=== PATIENT | male | born 1975 | race Caucasian/White ===

== ENCOUNTER 2024-11-09 16:55 | Inpatient (IN) | payer MEDICARE, MEDICAID ==
[~2024-11-09] VITALS: Ht 177.8 cm; Wt 89.5 kg
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
[2024-11-09] MEDS: methylPREDNISolone SOD SUCC 125 MG/2 ML VL IV ONE (17:33)
[2024-11-09 17:45] LABS: Nucleated Red Blood Cells % 0.1 %
[2024-11-09 17:46] LABS: Hematocrit 52.2 % (41.0-53.0); Hemoglobin 17.8 g/dL (13.5-17.5); Mean Corpuscular Hemoglobin 29.7 pg (28.0-32.0); Mean Corpuscular Volume 87.2 fL (80.0-100.0)
[2024-11-09 17:50] LABS: Potassium 4.3 mmol/L (3.5-5.1); Sodium 140 mmol/L (136-145)
[2024-11-09 17:51] LABS: Anion Gap 10 (5-15); Carbon Dioxide 22 mmol/L (20-31)
[2024-11-09 17:52] LABS: Calcium 9.7 mg/dL (8.7-10.4); Chloride 108 mmol/L (98-107)
[2024-11-09 17:56] LABS: BUN/Creatinine Ratio 16.4 (10.0-20.0); Blood Urea Nitrogen 12 mg/dL (9-23); Glucose 98 mg/dL (74-106)
--- NOTE | 2024-11-09 18:05 | DVH ---
CHEST RADIOGRAPH Indication: SOB Technique: Single frontal view of the chest was obtained Comparison: None FINDINGS: Lines and Tubes: None. Tubular structure noted extending from the right lower neck through the right hemiabdomen which may represent a ventriculoperitoneal shunt catheter. Lungs: No focal consolidation. Bronchovascular crowding due to low lung volumes with bibasilar linear densities. Pleura: No effusion. No pneumothorax. Cardiomediastinal contours: Unremarkable Bones: No acute osseous abnormality. IMPRESSION: Bronchovascular crowding due to low lung volumes with bibasilar atelectasis.
[2024-11-09] MEDS ORDERED: VANCOMYCIN PER PHARMACY 0 MG IV SCH (21:30)
[2024-11-09] MEDS ORDERED: NITROGLYCERIN 0.4 MG SL TAB SL PRN (21:30)
[2024-11-09] MEDS ORDERED: MORPHINE SULFATE INJ 2 MG/ml SYRG IV PRN (21:30)
[2024-11-09] MEDS ORDERED: ONDANSETRON HCL 4 MG/2 ML VIAL IV PRN (21:30)
[2024-11-09] MEDS ORDERED: VANCOMYCIN 1GM/200ML PM 200 ML IV ONE ×2 (21:45→23:30)
[2024-11-09] MEDS: PANTOPRAZOLE 40 MG/10 ML VIAL INJ IV ONE (22:19)
[2024-11-09] MEDS: VANCOMYCIN 1GM/200ML PM 200 ML IV ONE (22:20)
[2024-11-09] MEDS: ACETYLCYSTEINE 20%(200MG/ML) SOL 4ML NEB ONE (22:30)
[2024-11-09] MEDS: IPRATROPIUM BROM 0.5 MG/2.5ML INH SOL NEB ONE (22:30)
[2024-11-09 22:36] VITALS: BP 156/70; PULSE 109; RESP 24; O2SAT 99
[2024-11-10] VITALS (11 sets, daily range): PULSE 103–128; RESP 16–32; O2SAT 93–100
[2024-11-10] MEDS: PIPERACILLIN-TAZOB 3.375GM 100 ML IV SCH (00:08)
[2024-11-10] MEDS: LEVALBUTEROL HCL 1.25 MG/3 ML NEB NEB SCH (00:20)
[2024-11-10] MEDS: IPRATROPIUM BROM 0.5 MG/2.5ML INH SOL NEB SCH (00:20)
[2024-11-10] MEDS: ACETYLCYSTEINE 20%(200MG/ML) SOL 4ML NEB SCH (00:20)
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
[2024-11-10] MEDS: SODIUM CHLORIDE 0.9% 1,000 ML IV ONE ×4 (03:30→15:46)
[2024-11-10 05:27] LABS: COVID19 ANTIGEN SOFIA FIA NEGATIVE (NEGATIVE)
--- NOTE | 2024-11-10 05:32 | ECG ---
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
[2024-11-10 06:09] LABS: Hematocrit 50.5 % (41.0-53.0); Hemoglobin 17.1 g/dL (13.5-17.5); Mean Corpuscular Hemoglobin 29.9 pg (28.0-32.0); Mean Corpuscular Volume 88.1 fL (80.0-100.0); Nucleated Red Blood Cells % 0.1 %
[2024-11-10 06:22] LABS: Albumin 4.2 g/dL (3.2-4.8); Alkaline Phosphatase 74 U/L (46-116); Anion Gap 11 (5-15); BUN/Creatinine Ratio 20.3 (10.0-20.0); Blood Urea Nitrogen 16 mg/dL (9-23); Calcium 9.5 mg/dL (8.7-10.4); Carbon Dioxide 23 mmol/L (20-31); Glucose 87 mg/dL (74-106); Potassium 4.0 mmol/L (3.5-5.1); Sodium 143 mmol/L (136-145); Total Protein 7.3 g/dL (5.7-8.2)
[2024-11-10 06:23] LABS: Bilirubin, Total 1.1 mg/dL (0.2-1.0)
[2024-11-10 06:31] LABS: Alanine Aminotransferase 59 U/L (7-40); Chloride 109 mmol/L (98-107)
[2024-11-10] MEDS: LACOSAMIDE 50 MG TAB GT SCH (10:00)
[2024-11-10] MEDS: PANTOPRAZOLE 40 MG/10 ML VIAL INJ IV SCH (10:36)
[2024-11-10] MEDS: MEROPENEM 1GM IVPB 50 ML IV ONE (11:35)
[2024-11-10 12:37] LABS: INR 1.09 (0.9-1.15); Partial Thromboplastin Time 31.6 SEC (24.5-34.5); Prothrombin Time 11.5 sec (9.3-11.8)
[2024-11-10 12:52] LABS: Urine Protein, UAD Negative (Negative)
[2024-11-10] MEDS: VANCOMYCIN 750mg/150ml 150 ML IV SCH (13:36)
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
[2024-11-10] MEDS: LORazepam 2MG/ML-1ML VIAL IV PRN (15:22)
[2024-11-10] MEDS ORDERED: ACYCLOVIR 10MG/KG Q8HR PER RX 0 ML IV SCH (15:30)
[2024-11-10] MEDS: LORazepam 2MG/ML-1ML VIAL ONE (15:51)
[2024-11-10] MEDS: ACETAMINOPHEN 650 mg PER 20.3 mL UD GT PRN (16:00)
--- NOTE | 2024-11-10 17:27 | DVH ---
CT HEAD WITHOUT CONTRAST Indication: sp ventricular shunt EXAM DATE: 11/10/2024 04:43 PM COMPARISON: None TECHNIQUE: CT of the head without intravenous contrast. RADIATION DOSE: CTDIvol: 54 mGy, DLP: 1185 mGy*cm FINDINGS: Right frontal approach ventriculostomy catheter terminating near the left frontal horn late ral ventricle. Ventricles are significantly decompressed. There is no intracranial hemorrhage. There is no extra-axial fluid, mass, mass effect or midline shif t. Cisterns are patent. Left frontoparietal encephalomalacia. Left frontotemporal craniotomy. Anterio r/ inferior left frontal encephalomalacia. Mastoids well pneumatized. Left maxillary sinus disease.. Imaged portion of the orbits are unremarkab le. IMPRESSION: No intracranial hemorrhage .Right Frontal approach ventriculostomy catheter with the ventricles being significantly decompressed. Left frontoparietal encephalomalacia.
[2024-11-10] MEDS: AMPICILLIN SOD 2GM INJ 2 GM in SODIUM CHL 0.9% 100 ML IV ONE (17:41)
[2024-11-10] MEDS: ACYCLOVIR SOD 50MG/ML 800 MG in SODIUM CHL 0.9% 250 ML IV SCH (20:06)
[2024-11-10] MEDS: MEROPENEM 2GM/ 250ML 250 ML IV SCH (20:58)
[2024-11-10] MEDS ORDERED: MEROPENEM 1GM IVPB 50 ML IV SCH (22:00)
[2024-11-10] MEDS: AMPICILLIN SOD 2GM INJ 2 GM in SODIUM CHL 0.9% 100 ML IV SCH (23:31)
[2024-11-11] VITALS (29 sets, daily range): BP systolic 111–146; BP diastolic 52–77; PULSE 107–134; RESP 22–44; TEMP 98.6–100.3; O2SAT 93–100
[2024-11-11] MEDS: LACTATED RINGER'S 1,000 ML IV SCH (02:11)
[2024-11-11 03:11] LABS: Base Excess -3.8 mmol/L (-2.0-3.0)
--- NOTE | 2024-11-11 05:20 | DVH ---
EXAM: XR Chest, 1 View CLINICAL INDICATION: Pain TECHNIQUE: Frontal view of the chest. COMPARISON: XR Chest dated 11/09/2024 FINDINGS: LUNGS AND PLEURAL SPACES: Unremarkable. No consolidation. No pneumothorax. HEART: Cardiomegaly without overt failure. MEDIASTINUM: Unremarkable. Normal mediastinal contour. BONES/JOINTS: Unremarkable. No acute fracture. TUBES, LINES AND DEVICES: Tracheostomy tube in satisfactory position. IMPRESSION: Cardiomegaly without overt failure.
[2024-11-11 05:43] LABS: Hematocrit 49.9 % (41.0-53.0); Hemoglobin 16.5 g/dL (13.5-17.5); Mean Corpuscular Hemoglobin 29.8 pg (28.0-32.0); Mean Corpuscular Volume 90.1 fL (80.0-100.0); Nucleated Red Blood Cells % 0.0 %
[2024-11-11 06:00] LABS: Potassium 3.9 mmol/L (3.5-5.1); Sodium 142 mmol/L (136-145)
[2024-11-11 06:01] LABS: Anion Gap 12 (5-15)
[2024-11-11 06:04] LABS: Calcium 8.7 mg/dL (8.7-10.4); Carbon Dioxide 18 mmol/L (20-31); Chloride 112 mmol/L (98-107)
[2024-11-11 06:06] LABS: BUN/Creatinine Ratio 21.3 (10.0-20.0); Blood Urea Nitrogen 13 mg/dL (9-23); Glucose 93 mg/dL (74-106)
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
[2024-11-11] MEDS: clonazePAM 0.5 MG TAB GT SCH (12:15)
--- NOTE | 2024-11-11 12:21 | DVHSR ---
APPROVED REPORT EXAM: LIMITED Two-dimensional and M-mode echocardiogram with Doppler and color Doppler. Blood Pressure: 125/64 mmHg INDICATION H/O endocarditits RISK FACTORS Height: 5'10", Weight: 176 DIMENSIONS LVDd5.2 (3.8-5.7cm)LA (2D) (1.9-4.0cm)Aortic Root4.1 (2.0-3.7cm) LVDs3.8 (2.5-4.0cm)LA (MM) (1.9-4.0cm)Aortic Cusp Exc (1.5-2.0cm) EF (%) 52.0 (55-70%)Rt. Atrium (1.9-4.0cm)Asc. Aorta cm IVSd1.5 (0.7-1.1cm)RV (D) (1.8-2.4cm) PWd1.5 (0.7-1.1cm) Mitral Valve MitralMitral Stenosis E/A ratio0.02D MVAcm2 Aortic Valve Aortic ValveAortic Stenosis LVOT Diameter2.8 (1.8-2.4cm)Doppler AVAcm2 Other Information Quality : Technically LimitedRhythm : Technically limited study due to body habitus, patient curled up laying on right side. Conclusion lvef 65% mild to modeate LVH tachycardia during study normal RV function no severe valve abnormalities noted very llimited study
[2024-11-11] MEDS ORDERED: VANCOMYCIN 1GM/200ML PM 200 ML IV SCH ×2 (14:30→15:00)
[2024-11-11] MEDS: VANCOMYCIN 1GM/200ML PM 200 ML IV SCH (17:30)
[2024-11-11 19:37] LABS: Base Excess -3.8 mmol/L (-2.0-3.0)
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
[2024-11-12] VITALS (26 sets, daily range): BP systolic 105–137; BP diastolic 49–93; PULSE 98–122; RESP 20–42; TEMP 98.2–99.7; O2SAT 94–100
[2024-11-12 04:40] LABS: Sodium 145 mmol/L (136-145)
[2024-11-12 04:41] LABS: Anion Gap 12 (5-15); Carbon Dioxide 21 mmol/L (20-31)
[2024-11-12 04:44] LABS: Hematocrit 44.2 % (41.0-53.0); Hemoglobin 14.6 g/dL (13.5-17.5); Mean Corpuscular Hemoglobin 29.2 pg (28.0-32.0); Mean Corpuscular Volume 88.4 fL (80.0-100.0); Nucleated Red Blood Cells % 0.1 %
[2024-11-12 04:46] LABS: Glucose 94 mg/dL (74-106)
[2024-11-12 04:47] LABS: BUN/Creatinine Ratio 17.5 (10.0-20.0); Blood Urea Nitrogen 11 mg/dL (9-23)
[2024-11-12 04:48] LABS: Calcium 8.3 mg/dL (8.7-10.4); Chloride 112 mmol/L (98-107); Potassium 3.4 mmol/L (3.5-5.1)
[2024-11-12] MEDS: diphenhdrAMINE HCL 50 MG/1 ML VL IV ONE (05:17)
[2024-11-12] MEDS: POTASSIUM EFFERVESENT TAB 25 MEQ GT ONE (05:17)
--- NOTE | 2024-11-12 06:04 | DVH ---
EXAM: XR Chest, 1 View CLINICAL INDICATION: Pain TECHNIQUE: Frontal view of the chest. COMPARISON: No relevant prior studies available. FINDINGS: LUNGS AND PLEURAL SPACES: See below. HEART: Cardiomegaly with pulmonary congestion and edema. Superimposed pneumonia cannot be excluded. MEDIASTINUM: Unremarkable. Normal mediastinal contour. BONES/JOINTS: Unremarkable. No acute fracture. IMPRESSION: Cardiomegaly with pulmonary congestion and edema. Superimposed pneumonia cannot be excluded.
--- NOTE | 2024-11-12 09:13 | DVHPN2 ---
Progress Note - Dictate Date Seen: Nov 12, 2024 Has the PT tested + for MRSA If YES, has PT been informed?: No Medical Necessity Reason Pt with a Central, PICC or Fol: No Subjective Mr. Molina is a 49 years old gentleman with a history of traumatic brain injury, craniotomy, seizure disorder, he was brought to the [facility] on 11/09/2024 with a chief company of fever, tachycardia, desaturation. I have seen and examined the patient, I have discussed with his nurse and mother, he is awake, he tracks, he has social smiles to me, but she does not not follow my verbal commands or move the extremities Mother relates the patient was mentally fine at home, she also showed me a lot of pictures of the patient T-max: 100.7 He has Tachycardia Urinalysis, 11/10/2024: WBC: 2, urine leukocyte esterase: Negative CBC, 11/11/2024: Respiratory alkalosis WBC/HB/PLT/MCV, 11/11/2024: 19.4/16.5/139/90.1 TBI/AST/ALT/AP, 11/10/2024: 1.1/35/59/74 Chest x-ray, 11/11/2024: Cardiomegaly without overt failure Chest x-ray, 11/12/2024: Cardiomegaly with pulmonary congestion and edema. Superimposed pneumonia cannot be excluded CT head, 11/10/2024: No intracranial hemorrhage .Right frontal approach ventriculostomy catheter with the ventricles being significantly decompressed. Left frontoparietal encephalomalacia. vital signs Vital Sign Date Time Temp Pulse Resp B/P (MAP) Pulse Ox O2 Delivery O2 Flow Rate FiO2 11/12/24 06:50 103 28 100 11/12/24 06:40 T-piece 10 35 Cool Aerosol 35 11/12/24 06:00 111/62 (78) 11/12/24 05:00 98.6 98.6 Total Intake and Output 11/11/24 11/11/24 11/12/24 15:00 23:00 07:00 Intake Total 1166 ml 1778.0 ml 1759.3 ml Output Total 600 ml 550 ml Balance 1166 ml 1178.0 ml 1209.3 ml medications Current Medications Medications Dose Ordered Sig/Ata Route Start Time Stop Time Status Last Admin Dose Admin Levetiracetam 1,000 mg BID GT 11/09/24 22:00 11/11/24 21:44 1,000 MG Pantoprazole Sodium 40 mg DAILY IV 11/10/24 10:00 11/11/24 10:46 40 MG Acetaminophen 650 mg Q6HP PRN GT 11/09/24 21:30 11/12/24 03:32 650 MG Vancomycin HCl 0 ml @ 0 mls/hr UD IV 11/09/24 21:30 Levalbuterol HCl 0.625 mg Q6HR NEB 11/10/24 00:00 11/12/24 06:57 0.625 MG Ipratropium [place] 0.5 mg Q6HR NEB 11/10/24 00:00 11/12/24 06:57 0.5 MG Acetylcysteine 200 mg Q6HR NEB 11/10/24 00:00 11/12/24 06:57 200 MG Lacosamide 150 mg BID GT 11/10/24 10:00 11/11/24 21:48 150 MG Enteral Nutritional Formula 1,000 ml 30ML/HR GT 11/10/24 09:30 Lorazepam 1 mg Q5MINP PRN IV 11/10/24 15:30 11/11/24 13:53 1 MG Acyclovir Sodium 0 ml @ 0 mls/hr PER PHARMACY IV 11/10/24 15:30 Acyclovir Sodium 800 mg/Sodium Chloride 266 ml @ 266 mls/hr Q8H IV 11/10/24 18:00 11/12/24 02:23 266 MLS/HR Ampicillin Sodium 2 gm/Sodium Chloride 100 ml @ 100 mls/hr Q4H IV 11/10/24 22:00 11/12/24 07:01 100 MLS/HR Meropenem 250 ml @ 83.3 mls/hr Q8H IV 11/10/24 20:00 11/12/24 04:43 83.3 MLS/HR Lactated Ringer's 1,000 ml @ 100 mls/hr Q10H IV 11/11/24 02:00 11/11/24 21:45 100 MLS/HR Clonazepam 1 mg Q8HP GT 11/11/24 12:15 Hold Vancomycin HCl 200 ml @ 200 mls/hr Q8H IV 11/11/24 17:00 11/12/24 00:58 200 MLS/HR objective General: the patient is well developed and nourished. No acute distress. MENTAL STATUS: Subjective SPEECH, LANGUAGE, HIGHER CORTICAL FUNCTION: He does not vocalize/status post tracheostomy CRANIAL NERVES: Pupils are equal, round and reactive. EOMs full and conjugate. Facial sensation intact in all three divisions bilaterally. Mandibular strength intact. Facial muscles symmetrical and strength intact. SENSATION: Responsive to touch stimuli MOTOR: Increased tone in the upper and lower extremity. Diffuse muscle atrophy. No fasciculations. No abnormal movements or posturing. No spontaneous movement in the extremities REFLEXES: Deep tendon reflexes are diffusely increased, with clonus in the upper extremities, bilateral ankles. Upgoing toes in both feet CEREBELLAR/COORDINATION: Deferred GAIT/STATION: deferred. 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 Keppra 1000 mg b.i.d. Ativan for seizure breakthrough DVT prophylaxis GI prophylaxis More recommendation per clinical course I have discussed about the patient's care, and mother was quite Taylor is a she is able to take of him at home, she was related the patient pressor wound is healing under her care This medical document was created using an electronic medical record system with [employer] dictation system. Although this document has been carefully reviewed, there may still be some phonetic and typographical errors. These areas are purely typographical due to imperfections of the software programs, and do not reflect any compromise in the patient's medical care. Prognosis poor Dietary Evaluation Review Comments: Nutrition recommendation 1) TF Jevity 1.2Cal @ 60ml/hr. Start @ 20ml/hr, increase 10ml/hr Q4H until goal is reached. TF @ goal volume provides 1728 kcal (100% energy needs), 80gm protein (100% protein needs), 1162ml free water. 2) Water flush 100ml Q4H 3) Monitor NPO status, TF tolerance, lab values, wt trend, I/O Expected Outcomes/Goals: To meet >75% estimated needs Fu 2-3 days Plan discussed with: Other Total Time (mins): 40 AGNIESZKA ESPINOZA MD Nov 12, 2024 09:13
--- NOTE | 2024-11-12 13:45 | DVH ---
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 IMPRESSION: Image-guided lumbar puncture with 12 cc clear CSF. Opening pressure 9 cm H2O Plan: Specimen(s) sent for evaluation. PROCEDURE SUMMARY: - Percutaneous fluoro-guided lumbar puncture - Additional procedure(s): None PROCEDURE DETAILS: Pre-procedure Reference imaging for target: None Consent: Informed consent for the procedure including risks, benefits and alternatives was obtained a nd time-out was performed prior to the procedure. Preparation: The site was prepared and draped using maximal sterile barrier technique including cutan eous antisepsis. Anesthesia/sedation Level of anesthesia/sedation: No sedation Anesthesia/sedation administered by: Not applicable Total intra-service sedation time (minutes): 0 Imaging prior to lumbar puncture The patient was positioned left lateral decubitus. Initial imaging was performed. Target level: L2/3 interlaminar space Other findings: None Biopsy Local anesthesia was administered. Under imaging guidance as stated in the procedure summary, the ne edle was advanced to the thecal sac with positive return of CSF. Coaxial needle: None Needle size: 20 gauge Opening pressure: 9 cm H2O Aspirate volume: 12 cc clear CSF Needle removal The biopsy needle was removed and a sterile dressing was applied. Tract embolization: None Imaging following biopsy None Contrast Contrast agent: None Contrast volume (mL): 0 Radiation Dose Fluoroscopy time (minutes): 0.5 Reference air kerma (mGy): 15 Kerma area product (Not provided by imaging equipment) Not Used Additional Details Additional description of procedure: None Registry event: V/3/g Device used: None Equipment details: None Unique Device Identifiers: Not available Specimens removed: CSF as detailed above Estimated blood loss (mL): Less than 10 Standardized report: [email or web address] Attestation Signer name: Axel Quintero I attest that I was present for the entire procedure. I reviewed the stored images and agree with the report as written.
[2024-11-12 14:15] LABS: Protein, CSF 57.8 mg/dL (15-45)
[2024-11-12 15:00] LABS: Description,CSF CLEAR
--- NOTE | 2024-11-12 15:41 | DVHPNRES ---
Progress Note Date Seen: Nov 12, 2024 Resident Creating Document: ROSIBEL GREEN RESIDENT Has the PT tested + for MRSA If YES, has PT been informed?: No Medical Necessity Reason Pt with a Central, PICC or Fol: No Subjective Review of Systems Patient is a 49-year-old male, bed-bound with a past medical history of traumatic brain injury, endocarditis, seizure disorder, tracheostomy was brought to the hospital via EMS after he started having labored breathing and had fever. Patient's mother at bedside reports that she brought him home from a detention in [facility] about a week ago where he was staying since 2013 after traumatic brain injury following which he became bed-bound with quadriplegia, nonverbal. She reports that patient had some secretions yesterday and noticed to have labored breathing following which breathing treatments were given and he was suctioned via the tracheostomy. Today she noticed the patient having fever up to 101 degree F associated with labored breathing following which she called the EMS and brought the patient to the hospital for further evaluation. At detention and at home patient is on room air. Past medical history: Patient after the accident in 2013 was placed ventriculoperitoneal shunt, has a tracheostomy since then, bed-bound quadriplegic, endocarditis in 2013 was treated with antibiotics for 6 weeks and developed a seizure disorder. Surgical history: Cranial surgery, ventriculoperitoneal shunt, tracheostomy, G- tube Social history: Patient currently resides with the mother and is paraplegic Home medications: Keppra 1000 mg b.i.d., lacosamide 150 mg b.i.d., potassium 20 mEq daily, baclofen 20 mg q.i.d. 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 Left frontoparietal encephalomalacia. 11/12/2024: LP done, CSF fluid: wbc 9 rbc 84 protein 57 glucose 52, pending gram, culture and hsv pcr, HR is 110 lpm, T 99.6, acinobacter baumani is growing in the sputum, ID consulted, Chest CT ordered, patient is still having generalized rash, dexamethasone started Objective vital signs Vital Sign Date Time Temp Pulse Resp B/P (MAP) Pulse Ox O2 Delivery O2 Flow Rate FiO2 11/12/24 14:00 31 97 T-piece 10 35 35 11/12/24 10:00 110 126/66 (86) 11/12/24 08:00 98.4 98.4 Total Intake and Output 11/11/24 11/11/24 11/12/24 15:00 23:00 07:00 Intake Total 1166 ml 1778.0 ml 1759.3 ml Output Total 600 ml 550 ml Balance 1166 ml 1178.0 ml 1209.3 ml medications Current Medications Medications Dose Ordered Sig/Ata Route Start Time Stop Time Status Last Admin Dose Admin Levetiracetam 1,000 mg BID GT 11/09/24 22:00 11/12/24 09:48 1,000 MG Pantoprazole Sodium 40 mg DAILY IV 11/10/24 10:00 11/12/24 09:49 40 MG Acetaminophen 650 mg Q6HP PRN GT 11/09/24 21:30 11/12/24 03:32 650 MG Vancomycin HCl 0 ml @ 0 mls/hr UD IV 11/09/24 21:30 Levalbuterol HCl 0.625 mg Q6HR NEB 11/10/24 00:00 11/12/24 06:57 0.625 MG Ipratropium [place] 0.5 mg Q6HR NEB 11/10/24 00:00 11/12/24 06:57 0.5 MG Acetylcysteine 200 mg Q6HR NEB 11/10/24 00:00 11/12/24 06:57 200 MG Lacosamide 150 mg BID GT 11/10/24 10:00 11/12/24 13:00 150 MG Enteral Nutritional Formula 1,000 ml 30ML/HR GT 11/10/24 09:30 Lorazepam 1 mg Q5MINP PRN IV 11/10/24 15:30 11/11/24 13:53 1 MG Acyclovir Sodium 0 ml @ 0 mls/hr PER PHARMACY IV 11/10/24 15:30 Acyclovir Sodium 800 mg/Sodium Chloride 266 ml @ 266 mls/hr Q8H IV 11/10/24 18:00 11/12/24 02:23 266 MLS/HR Ampicillin Sodium 2 gm/Sodium Chloride 100 ml @ 100 mls/hr Q4H IV 11/10/24 22:00 11/12/24 13:35 100 MLS/HR Meropenem 250 ml @ 83.3 mls/hr Q8H IV 11/10/24 20:00 11/12/24 13:56 83.3 MLS/HR Clonazepam 1 mg Q8HP GT 11/11/24 12:15 Hold Vancomycin HCl 200 ml @ 200 mls/hr Q8H IV 11/11/24 17:00 11/12/24 09:46 200 MLS/HR Dexamethasone Sodium Phosphate 10 mg Q6HR IV 11/12/24 12:00 11/12/24 13:56 10 MG Examination Gen - no pallor, no icterus, no cyanosis, no clubbing, no LAD, Skin - Patients skin is warm and dry. generalized rash HEENT - status post cranial surgery with a left hemicranium, moist mucous membranes. Neck - no LAD, no JVD Pulmonary - B/L course rales heard, no wheezing, no stridor. cardiovascular - regular S1,S2 heard, left lower sternal border systolic murmur heard. peripheral pulses normal radial 2+, pedal 2+. capillary refill normal <2 secs. GI - soft abdomen. no hepatospleenomegaly. Bowel sounds normoactive Neurological - patient is nonverbal, quadriplegic, spontaneous eye opening, responds to mother on verbal command, clonus upper extremities edema laboratory and microbiology Laboratory Tests 11/12/24 04:18 Test 11/12/24 04:18 Range/Units Serum Glucose 94 74-106 mg/dL Microbiology Date/Time Source Procedure Growth Status 11/12/24 12:55 Cerebral Spinal Fluid Gram Stain - Final Resulted 11/12/24 12:55 Cerebral Spinal Fluid CSF Culture & Gram Stain (Tube 2) M Pending Resulted 11/11/24 08:08 Nose MRSA Screen - Final Complete 11/10/24 12:10 Voided Urine Urine Culture - Final Complete 11/09/24 22:14 Blood Blood Culture - Preliminary NO GROWTH AFTER 48 HOURS OF INCUBATION. Resulted Problem List/Assessment/Plan Problem List/Assessment/Plan Sepsis due to possible neuroinfection Seizure disorder S/p traumatic brain injury S/p ventriculoperitoneal shunt Quadriplegic IV fluids - Lorazepam PRN - on Keppra 1000 mg b.i.d. - lacosamide 150 mg b.i.d. 11/11/2024: LP will be done tomorrow, patient is having clonus and possible partial seizures, neurologist was consulted, wbc is trending high, sputum culture is showing gram negative rods, blood cultures prelim negative, patient will be continued in meropenem, vancomycin, ampicilin and acyclovir, head ct scan showed: Frontal approach ventriculostomy catheter with the ventricles being significantly decompressed. Left frontoparietal encephalomalacia. 11/12/2024: LP done, CSF fluid: wbc 9 rbc 84 protein 57 glucose 52, pending gram, culture and hsv pcr, HR is 110 lpm, T 99.6, dexamethasone started Acute on chronic hypoxic respiratory failure Probable aspiration pneumonia due to gram +/- bacteria Sepsis likely due to pneumonia s/p tracheostomy - chest x-ray shows right lower lobe opacity, bibasilar atelectasis - duo nebs q.6 hours - acetylcysteine - acinobacter baumani is growing in the sputum, ID consulted, Chest CT ordered, patient is still having generalized rash, - blood culture pending - IV fluids - IV vancomycin and meropenem - urinalysis: blood 1+, ketones 1+ H/o endocarditis(in 2013) - blood cultures pending - echo: no severe valve abnormalities noted s/gastrostomy continue tube feedings PUD prophylaxis: Protonix PICC line order Goals of care discussed with the patient's mother Amelia for over 23 minutes. Full code Time spent: 43 minutes Plan discussed with Dr. Stevenson Plan discussed with: Patient, Other (rn) My Orders My Orders Orders - ROSIBEL GREEN RESIDENT Procedure Category Date Status Time Abg W/ Co-Ox RT 11/11/24 Logged 18:25 Chest Xray 1 View XY 11/12/24 Resulted 04:00 Communication Order ORDERS 11/12/24 Transmitted 09:24 Dexamethasone PHA 11/12/24 In Process Injection (Decadron 12:00 * Picc Line Consult CONS 11/12/24 Transmitted 11:47 * Wound Consult CONS 11/12/24 Transmitted Cytology SALVADOR 11/12/24 Transmitted 13:48 Csf Hsv1/2 Dna Pcr LAB 11/12/24 In Process 13:[address] 11/12/24 Logged 14:10 * Infectious Viv- Dr. CONS 11/12/24 Transmitted Carolyn Velasco 14:10 Bi Lat Upper Dvt US 11/12/24 Logged 15:22 Dietary Evaluation Review Comments: Nutrition recommendation 1) TF Jevity 1.2Cal @ 60ml/hr. Start @ 20ml/hr, increase 10ml/hr Q4H until goal is reached. TF @ goal volume provides 1728 kcal (100% energy needs), 80gm protein (100% protein needs), 1162ml free water. 2) Water flush 100ml Q4H 3) Monitor NPO status, TF tolerance, lab values, wt trend, I/O Expected Outcomes/Goals: To meet >75% estimated needs Fu 2-3 days Date of Service: Nov 12, 2024 Billing Provider: ELMER STEVENSON MD Common Visit Codes: [id number] INP/OBS CARE(HIGH) ROSIBEL GREEN RESIDENT Nov 12, 2024 15:41 ELMER STEVENSON MD Nov 14, 2024 15:16
--- NOTE | 2024-11-12 16:12 | DVH ---
Bilateral upper extremity venous Doppler INDICATION: SWOLLEN RIGHT ARM TECHNIQUE: Duplex venous sonography was performed with real-time and flow sensitive images submitted for evaluation. FINDINGS: Normal phasic venous flow. Veins are fully compressible. No filling defects. IMPRESSION: 1. No evidence of deep vein thrombosis.
--- NOTE | 2024-11-12 18:07 | DVHCONRES ---
Date Seen: Nov 12, 2024 Resident Creating Document: CHELSEA MARTIN RESIDENT Referring Physician Roshan Reason for Consultation Poss meningitis/ pneumonia due to acinetobacter baumanii History of Present Illness This is a 49-year-old male which is bed-bound with a past medical history of traumatic brain injury in September 21, 2013, endocarditis in 2013, seizure disorder, tracheostomy who was brought to the hospital via EMS after he was started having labored breathing associated with fever. The sister explained that he was on correction in [facility] since 2015 until last Sunday when he went home with the sister and mother. Family started noticing that since he got out of the correction he was not acting as himself. Patient started having labored breathing and a mild febrile episode. The patient was supposed to have nurses to come to his home to do breathing treatments, suctioning an additional care but did not got any nursing visit at that time. Family states that the patient is on room air at home and at the nursing facility and was not requiring supplemental oxygen. Upon admission, patient has been having labored breathing, requiring 8-10 L of oxygen through tracheostomy tube. Today, labs are showing elevated WBC at 17.2, mild hypokalemia. Blood cultures came back negative, urine culture came back negative and tracheal cultures are showing Acinetobacter baumannii. Lumbar puncture was performed today cultures are still pending. Cerebrospinal fluid are showing elevated WBC, RBC and protein with normal glucose. Past Medical History Traumatic brain injury in September 21, 2013, endocarditis, seizure disorder, tracheostomy, cranial surgery with ventriculoperitoneal shunt Past Surgical History Cranial surgery, ventriculoperitoneal shunt, tracheostomy, G-tube Family History non contributatory Social History Patient is currently resides with the mother and sister. He is paraplegic. Allergies: Coded Allergies: NO KNOWN ALLERGIES (Unverified , 11/09/24) Home Meds Active Scripts Pantoprazole Sodium Sesquihydr (Pantoprazole Sodium) 40 Mg Tab, 40 MG PO DAILY for 14 Days, #14 TAB Prov:FLAKO WOODSON RESIDENT 11/24/24 Prednisone (Prednisone) 20 Mg Tab, 20 MG PO DAILY for 5 Days, #5 AC Prov:FLAKO WOODSON RESIDENT 11/24/24 Reported Medications Levetiracetam (Keppra) 1,000 Mg Tab, 10 LIQ PO BID, #60 TAB 5 Refills 6/20/25 Amino Acids-Protein Hydrolysat (PRO-STAT) Liq, 30 ML OR DAILY, LIQ 11/14/24 Zinc Sulfate (Zinc Sulfate) 220 Mg Cap, 50 MG GT DAILY for 30 Days, MG 11/14/24 Potassium Chloride (POTASSIUM CHLORIDE CR) 10 Meq Tb, 20 MEQ GT DAILY, TAB 11/14/24 Multiple Vitamin (Multivitamins) Tab, 1 TAB GT DAILY, #30 TAB 2 Refills 11/14/24 Lorazepam (ATIVAN TABLET) 0.5 Mg Tb, 0.5 MG GT Q6HPRN PRN for SHORTNESS OF BREATH, TAB 11/14/24 Levalbuterol HCl (Levalbuterol) 1.25 Mg/0.5 Ml Neb, 1.25 MG IN Q4HP PRN for WHEEZING, INH 11/14/24 Lacosamide (Lacosamide) 150 Mg Tab, 150 MG GT BID, TAB 11/14/24 Loratadine (Claritin) 10 Mg Tab, 1 TAB PO DAILY for ALLERGIES, #30 TAB 5 Refills 11/14/24 Ipratropium-Albuterol (Ipratropium [place]/Albut) 1 Trace Trace, 1 TRACE IN Q6HPRN PRN for respiratory failure, ML 11/14/24 Glycopyrrolate (CUVPOSA) 1 Mg/5 Ml Trace, 1 MG PO Q8HPRN PRN for increased secretions, ML 11/14/24 Polyethylene Glycol 3350 (Miralax) 17 Gm Pow, 17 GM PO 3XW, POW 11/14/24 Chlorhexidine Gluconate (Mouth (CHLORHEXIDINE ORAL RINSE) 473 Ml So, 15 ML MT Q12HR, ML 11/14/24 Acetylcysteine (Acetylcysteine) 20 % Trace, 1 ML IN Q4HP PRN for thick secretions, ML 11/14/24 Diphenhydramine Hcl (Benadryl Allergy) 25 Mg Cap, 25 MG PO Q8HPRN PRN for allergies, CAP 11/14/24 Ascorbic Acid (VITAMIN C TABLET) 500 Mg Tb, 1 TAB GT BID, #60 TAB 11/14/24 Baclofen (Baclofen) 10 Mg Tab, 20 MG GT Q6HR for 30 Days, MG 11/14/24 Current Medications Current Medications Medications (Trade) Dose Ordered Sig/Ata Route PRN Reason Start Time Stop Time Status Last Admin Dexamethasone Sodium Phosphate (Decadron Injection) 10 mg Q6HR IV 11/12/24 12:00 11/12/24 13:56 Review of Systems ROS unable to obtain due to patient's current status paraplegic and nonverbal. Vital Signs Vital Signs Date Time Temp Pulse Resp B/P (MAP) Pulse Ox O2 Delivery O2 Flow Rate FiO2 11/12/24 14:00 31 97 T-piece 10 35 35 11/12/24 10:00 110 126/66 (86) 11/12/24 08:00 98.4 98.4 Physical Exam Physical Examination General: Patient is paraplegic due to traumatic brain injury and nonverbal. HEENT: Normocephalic, atraumatic, moist mucous membranes Respiratory/pulmonary: Patient has tracheostomy tube in place currently at 10 L of oxygen through the tracheal tube. There are bilateral secretion sounds on both lung mayo. Cardiovascular: Irregular heart sounds S1 and S2 with no associated murmurs Abdomen: Abdomen nondistended, there is no pain to palpation in any of the abdominal quadrants, no palpable masses. There is a G-tube Extremities: There mild lower extremity edema bilaterally. There is significant upper extremity swelling at the level of both hands. Skin: The patient is having a widespread rash, family states that started after receiving IV antibiotics. Neurological: Paraplegic, nonverbal Labs/Diagnostic Data Labs Test 11/12/24 16:06 11/12/24 12:55 11/12/24 04:18 11/11/24 19:24 Range/Units Vancomycin Level Trough 14.9 H 5-10 ug/mL CSF Tube Number #3 CSF Appearance Clear CSF WBC 9 H 0-5 CUMM CSF RBC 84 H 0-5 CUMM CSF Protein (Tube 2) 57.8 H 15-45 mg/dL CSF Mononuclear Cells 27 % CSF Polymorphonuclear Cells 73 % CSF Glucose 52 40-70 mg/dL White Blood Count 17.2 H 4.4-10.8 10^3/uL Red Blood Count 5.00 4.5-5.90 10^6/uL Hemoglobin 14.6 13.5-17.5 g/dL Hematocrit 44.2 # 41.0-53.0 % Mean Corpuscular Volume 88.4 80.0-100.0 fL Mean Corpuscular Hemoglobin 29.2 28.0-32.0 pg Mean Corpuscular Hemoglobin Concent 33.0 32.0-36.0 g/dL Red Cell Distribution Width 14.1 11.8-14.3 % Platelet Count 175 140-450 10^3/uL Mean Platelet Volume 9.1 6.9-10.8 fL Neutrophils (%) (Auto) 77.9 37.0-80.0 % Lymphocytes (%) (Auto) 6.0 L 10.0-50.0 % Monocytes (%) (Auto) 8.1 0.0-12.0 % Eosinophils (%) (Auto) 7.8 H 0.0-7.0 % Basophils (%) (Auto) 0.2 0.0-2.0 % Neutrophils # (Auto) 13.4 H 1.6-8.6 10 ^3/uL Lymphocytes # (Auto) 1.0 0.4-5.4 10 ^3/uL Monocytes # (Auto) 1.4 H 0-1.3 10 ^3/uL Eosinophils # (Auto) 1.3 H 0-0.8 10 ^3/uL Basophils # (Auto) 0 0-0.2 10 ^3/uL Nucleated Red Blood Cells 0.1 % Sodium Level 145 136-145 mmol/L Potassium Level 3.4 L 3.5-5.1 mmol/L Chloride Level 112 H 98-107 mmol/L Carbon Dioxide Level 21 20-31 mmol/L Anion Gap 12 5-15 Blood Urea Nitrogen 11 9-23 mg/dL Creatinine 0.63 L 0.700-1.30 mg/dL Glomerular Filtration Rate Calc 117 >90 mL/min BUN/Creatinine Ratio 17.5 10.0-20.0 Serum Glucose 94 74-106 mg/dL Calcium Level 8.3 L 8.7-10.4 mg/dL Blood Gas Specimen Type Arterial Blood Gas Sample Site Right radial Blood Gas Patient Temperature 37.0 Arterial Blood Date Drawn [id number] Arterial Blood pH 7.469 H 7.350-7.450 Arterial Blood Partial Pressure CO2 25.1 L 35.0-48.0 mmHg Arterial Blood Partial Pressure O2 63.3 L 83.0-108.0 mmHg Arterial Blood HCO3 17.8 L 21.0-28.0 mmol/L Arterial Blood Oxygen Saturation 93.6 L 94.0-98.0 % Arterial Blood Base Excess -3.8 L -2.0-3.0 mmol/L Arterial Blood Oxyhemoglobin 91.8 L 94.0-98.0 % Arterial Blood Carboxyhemoglobin 1.1 0.5-1.5 % Arterial Blood Methemoglobin 0.8 0.0-1.5 % José Miguel Test Modified Blood Gas Total Hemoglobin 16.10 13.5-17.5 g/dL Blood Gas Liter Flow 10.00 Blood Gas Modality Cool aerosol FiO2 % 35.0 Test 11/11/24 13:40 11/11/24 05:30 11/10/24 12:10 11/10/24 11:59 Range/Units Lactic Acid Level 1.4 0.4-2.0 mmol/L Acetaminophen Level < 2.0 L 10.0-20.0 UG/ML Urine Color Light-yellow Yellow Urine Clarity Clear Clear Urine pH 5.5 5.0-9.0 Urine Specific [place] 1.022 1.001-1.035 Urine Protein Negative Negative Urine Ketones 1+ H Negative Urine Blood 1+ H Negative /uL Urine Nitrite Negative Negative Urine Bilirubin Negative Negative Urine Urobilinogen Normal Negative mg/dL Urine Leukocyte Esterase Negative Negative /uL Urine RBC 4 0 - 3 /hpf Urine Microscopic WBC 2 0-3 /HPF Urine Squamous Epithelial Cells None seen <5 /hpf Urine Bacteria None seen None Seen /hpf Urine Glucose Normal Normal mg/dL Prothrombin Time 11.5 9.3-11.8 sec Prothrombin Time INR 1.09 0.9-1.15 Activated Partial Thromboplast Time 31.6 24.5-34.5 SEC Test 11/10/24 05:17 11/10/24 04:21 11/09/24 17:28 Range/Units Hemoglobin A1c 4.8 <5.7 % A1C Total Bilirubin 1.1 H 0.2-1.0 mg/dL Aspartate Amino Transferase (AST) 35 H <34 U/L Alanine Aminotransferase (ALT) 59 H 7-40 U/L Alkaline Phosphatase 74 46-116 U/L Creatine Kinase 128 46-171 U/L Total Protein 7.3 5.7-8.2 g/dL Albumin 4.2 3.2-4.8 g/dL Influenza Type A Antigen Negative Negative Influenza Type B Antigen Negative Negative SARS-CoV-2 Antigen (Rapid) Negative NEGATIVE B-Type Natriuretic Peptide 46.93 0-100 pg/mL Microbiology Date/Time Source Procedure Growth Status 11/12/24 12:55 Cerebral Spinal Fluid Gram Stain - Final Resulted 11/12/24 12:55 Cerebral Spinal Fluid CSF Culture & Gram Stain (Tube 2) M Pending Resulted 11/11/24 08:08 Nose MRSA Screen - Final Complete 11/10/24 12:10 Voided Urine Urine Culture - Final Complete 11/09/24 22:14 Blood Blood Culture - Preliminary NO GROWTH AFTER 48 HOURS OF INCUBATION. 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 -lumbar puncture was performed today which showed WBC 9, RBC 84, protein 57.8, glucose 52. Cultures are still pending. -Meningitis less likely -Stop meropenem, ampicilin and acyclovir -Continue IV vancomycin -Start Ceftazidime 2Gr Q8hr -Benadryl and steroids for rash, also decrease rate on vanco. -Cont rest of plan per primary team Goals of care discussed with the sister at bedside for >35min, FULL CODE Plan discussed with Dr. Velasco -------- Assessment Dr. Edgard Velasco ------- Patient is a 49 year old male with a past medical history of a traumatic brain injusry on 09/11/2013 . endocarditis , ceder disorder and trach , was brought in with labored breathing a fever . hes had recurrent hospitalizations , was at a correction when he started to have labored breathing . febrile episode . He was recently discharged home but was not getting additional care . patient was starting to require supplemental oxygen and got up to 8-10 liters through trach tube . whitecount is 17.2 . trach cultures grew astonita bacterbomie in the past , pseudomonas . patient has a lumbar puncture done . concern for altered mental status and has a rash after dose of vancomycin and zosyn . History of cranial surgery with ventricular peritoneal shunt. Patient currently has SOB , responding to simple questions but otherwise nonverbal however this is his baseline . has a rash . chest xray showed low lung volumes with possible bibasilar atelectasis. low overall suspicion for meningitis at this time Plan : - f/u pn pending culture data from respiratory cultures = empirically cover for MRSA until cultures are finalized - continue vancomycin , ceftazidine , Benadryl - stop meropenum - less likely thierry syndrome Agree with subjective , assessment , plan as written above execpt as noted by Dr. Tejada Plan discussed with: Other (sister) CHELSEA MARTIN RESIDENT Nov 12, 2024 18:07 EDGARD VELASCO MD Nov 29, 2024 18:33
[2024-11-13] VITALS (32 sets, daily range): BP systolic 108–152; BP diastolic 44–70; PULSE 85–115; RESP 18–35; TEMP 98.6–100; O2SAT 89–100
[2024-11-13] MEDS ORDERED: VANCOMYCIN IV SCH (01:00)
[2024-11-13] MEDS: VANCOMYCIN 1GM/250ML KIT 250 ML IV SCH (01:30)
--- NOTE | 2024-11-13 05:53 | DVH ---
Procedure: CT CHEST WITHOUT CONTRAST Reason for study/Clinical History: pneumonia acinobacter baumani Comparison Study: None Exam Date: 11/12/2024 11:07 PM TECHNIQUE: Multidetector CT of the chest was performed from the lung apices to the upper abdomen with out the use of intravenous contract. Coronal and sagittal multiplanar reformats were performed. Radiation Dose Information: CT Dose: CTDI volume is 25.13 mGy. Dose-length product is 920.95 mGy*cm The dose indicators for CT are the volume Computed Tomography (CT) Dose Index (CTDIvol) and the Dose Length Product (DLP), and are measured in units of mGy and mGy-cm, respectively. These indicators are not patient dose, but values generated from the CT scanner acquisition factors. The report includes radiation exposure data for exposures received during this examination. FINDINGS: Lower neck: Normal thyroid. Lungs: Right hemidiaphragm is elevated. Bilateral lower lobe opacities. Central airways: Tracheostomy tube in place. Pleura: No pleural effusion or significant pneumothorax. Heart/Vascular Structures: Cardiomegaly. Trace pericardial effusion. Normal caliber thoracic aorta a nd main pulmonary artery. Lymph Nodes: No adenopathy. Musculoskeletal: No acute osseous abnormality. Respiratory motion limits evaluation in the sternum. Soft tissues: Normal. Upper abdomen: Limited portions of the upper abdomen are unremarkable. IMPRESSION: 1. Bilateral lower lobe opacities favored to represent dependent atelectasis. No confluence airspace consolidation. Radiation optimization: All CT scans at this facility use at least one of these dose optimization naida hniques: automated exposure control mA and/or kV adjustment per patient size (includes targeted exam s where dose is matched to clinical indication) or iterative reconstruction.
[2024-11-13 06:51] LABS: Hematocrit 45.1 % (41.0-53.0); Hemoglobin 15.3 g/dL (13.5-17.5); Mean Corpuscular Hemoglobin 29.5 pg (28.0-32.0); Mean Corpuscular Volume 86.8 fL (80.0-100.0); Nucleated Red Blood Cells % 0.0 %
[2024-11-13 06:54] LABS: Calcium 8.8 mg/dL (8.7-10.4); Potassium 3.7 mmol/L (3.5-5.1); Sodium 141 mmol/L (136-145)
[2024-11-13 06:55] LABS: Anion Gap 12 (5-15); Carbon Dioxide 21 mmol/L (20-31)
[2024-11-13 07:00] LABS: BUN/Creatinine Ratio 15.4 (10.0-20.0)
[2024-11-13 07:02] LABS: Blood Urea Nitrogen 8 mg/dL (9-23); Chloride 108 mmol/L (98-107); Glucose 114 mg/dL (74-106)
[2024-11-13] MEDS: cefTAZidime 2GM/NS 50 ML IV SCH (07:30)
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
--- NOTE | 2024-11-13 10:35 | DVHPN2 ---
Progress Note - Dictate Date Seen: Nov 13, 2024 Has the PT tested + for MRSA If YES, has PT been informed?: No Medical Necessity Reason Pt with a Central, PICC or Fol: No Subjective Mr. Molina is a 49 years old gentleman with a history of traumatic brain injury, craniotomy, seizure disorder, he was brought to the [facility] on 11/09/2024 with a chief company of fever, tachycardia, desaturation. I have seen and examined the patient, I have discussed with his nurse, he is awake, he tracks, but he does not not follow my verbal commands or move the extremities. He may prefer looking to the right side. Not sure if he has left hemianopsia Family reports a possible seizure in that he gaze to one side briefly T-max: 99.7 CSF profile, 11/12/2024: C/C, WBC: Nine, Nancy: 73, motor 27, protein 57.9, glucose 52 Urinalysis, 11/10/2024: WBC: 2, urine leukocyte esterase: Negative CBC, 11/11/2024: Respiratory alkalosis WBC/HB/PLT/MCV, 11/11/2024: 19.4/16.5/139/90.1 TBI/AST/ALT/AP, 11/10/2024: 1.1/35/59/74 Chest x-ray, 11/11/2024: Cardiomegaly without overt failure Chest x-ray, 11/12/2024: Cardiomegaly with pulmonary congestion and edema. Superimposed pneumonia cannot be excluded CT head, 11/10/2024: No intracranial hemorrhage .Right frontal approach ventriculostomy catheter with the ventricles being significantly decompressed. Left frontoparietal encephalomalacia. vital signs Vital Sign Date Time Temp Pulse Resp B/P (MAP) Pulse Ox O2 Delivery O2 Flow Rate FiO2 11/13/24 10:00 100 T-piece 10.0 11/13/24 10:00 35 35 11/13/24 10:00 30 11/13/24 09:01 99 111/60 (77) 11/13/24 08:00 98.6 98.6 Total Intake and Output 11/12/24 11/12/24 11/13/24 15:00 23:00 07:00 Intake Total 1550 ml 250 ml Output Total 1720 ml 400 ml Balance -170 ml -150 ml medications Current Medications Medications Dose Ordered Sig/Ata Route Start Time Stop Time Status Last Admin Dose Admin Levetiracetam 1,000 mg BID GT 11/09/24 22:00 11/13/24 08:12 1,000 MG Pantoprazole Sodium 40 mg DAILY IV 11/10/24 10:00 11/13/24 08:07 40 MG Acetaminophen 650 mg Q6HP PRN GT 11/09/24 21:30 11/12/24 03:32 650 MG Vancomycin HCl 0 ml @ 0 mls/hr UD IV 11/09/24 21:30 Levalbuterol HCl 0.625 mg Q6HR NEB 11/10/24 00:00 11/13/24 07:00 0.625 MG Ipratropium [place] 0.5 mg Q6HR NEB 11/10/24 00:00 11/13/24 07:00 0.5 MG Acetylcysteine 200 mg Q6HR NEB 11/10/24 00:00 11/13/24 07:00 200 MG Lacosamide 150 mg BID GT 11/10/24 10:00 11/13/24 08:09 150 MG Enteral Nutritional Formula 1,000 ml 30ML/HR GT 11/10/24 09:30 Lorazepam 1 mg Q5MINP PRN IV 11/10/24 15:30 11/11/24 13:53 1 MG Clonazepam 1 mg Q8HP GT 11/11/24 12:15 Hold Dexamethasone Sodium Phosphate 10 mg Q6HR IV 11/12/24 12:00 11/13/24 06:05 10 MG Vancomycin HCl 250 ml @ 100 mls/hr Q8H IV 11/13/24 01:30 11/13/24 08:15 100 MLS/HR Ceftazidime/ Dextrose 50 ml @ 12.5 mls/hr Q8HR IV 11/13/24 04:45 11/13/24 07:58 12.5 MLS/HR objective General: the patient is well developed and nourished. No acute distress. MENTAL STATUS: Subjective SPEECH, LANGUAGE, HIGHER CORTICAL FUNCTION: He does not vocalize/status post tracheostomy CRANIAL NERVES: Pupils are equal, round and reactive. EOMs full and conjugate. Facial sensation intact in all three divisions bilaterally. Mandibular strength intact. Facial muscles symmetrical and strength intact. SENSATION: Responsive to touch stimuli MOTOR: Increased tone in the upper and lower extremity. Diffuse muscle atrophy. No fasciculations. No abnormal movements or posturing. No spontaneous movement in the extremities REFLEXES: Deep tendon reflexes are diffusely increased, with clonus in the upper extremities, bilateral ankles. Upgoing toes in both feet CEREBELLAR/COORDINATION: Deferred GAIT/STATION: deferred. laboratory and microbiology Laboratory Tests 11/13/24 05:53 Test 11/13/24 05:53 Range/Units Serum Glucose 114 H 74-106 mg/dL Problem List Fever, ALOC with elevated WBC, protein Partially treated meningitis Aseptic meningitis Seizure breakthrough, fever, to rule out meningitis Generalized tonic-clonic seizure secondary to traumatic brain injury Chronic traumatic brain injury status post craniotomy, SHELLACKER shunt ? 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 Keppra 1000 mg b.i.d. Ativan for seizure breakthrough DVT prophylaxis GI prophylaxis More recommendation per clinical course This medical document was created using an electronic medical record system with [employer] dictation system. Although this document has been carefully reviewed, there may still be some phonetic and typographical errors. These areas are purely typographical due to imperfections of the software programs, and do not reflect any compromise in the patient's medical care. Prognosis poor Dietary Evaluation Review Comments: Nutrition recommendation 1) TF Jevity 1.2Cal @ 60ml/hr. Start @ 20ml/hr, increase 10ml/hr Q4H until goal is reached. TF @ goal volume provides 1728 kcal (100% energy needs), 80gm protein (100% protein needs), 1162ml free water. 2) Water flush 100ml Q4H 3) Monitor NPO status, TF tolerance, lab values, wt trend, I/O Expected Outcomes/Goals: To meet >75% estimated needs Fu 2-3 days Plan discussed with: AGNIESZKA Mckeon MD Nov 13, 2024 10:35
--- NOTE | 2024-11-13 11:48 | DVHPNRES ---
Progress Note Date Seen: Nov 13, 2024 Resident Creating Document: CHELSEA MARTIN RESIDENT Has the PT tested + for MRSA If YES, has PT been informed?: No Medical Necessity Reason Pt with a Central, PICC or Fol: No Subjective Review of Systems Patient seen and examined at bedside. Patient is quadriplegic bed-bound after traumatic brain injury in 2013. Per nurse and mother, the patient has been slightly more reactive and communicative with the family members through eye contact and slight smiling. Yesterday, we decided to discontinue meropenem, ampicillin and acyclovir for low suspicious of meningitis at this time. CSF fluid preliminary cultures are showing no growth so far. We started the patient on IV ceftazidime and continue vancomycin. The rash, per family is slightly better compared to admission. Family members mentioned it yesterday that the patient was allergic to an antibiotic previously but they do recall the name. We will continue monitoring rash, vital signs and neurological symptoms. For now we will continue IV vancomycin and ceftazidime. ROS unable to obtain due to patient's current status quadriplegic and nonverbal Objective vital signs Vital Sign Date Time Temp Pulse Resp B/P (MAP) Pulse Ox O2 Delivery O2 Flow Rate FiO2 11/13/24 11:35 88 18 99 11/13/24 11:26 T-piece 8 35 Cool Aerosol 35 11/13/24 09:01 111/60 (77) 11/13/24 08:00 98.6 98.6 Total Intake and Output 11/12/24 11/12/24 11/13/24 15:00 23:00 07:00 Intake Total 1550 ml 250 ml Output Total 1720 ml 400 ml Balance -170 ml -150 ml medications Current Medications Medications Dose Ordered Sig/Ata Route Start Time Stop Time Status Last Admin Dose Admin Levetiracetam 1,000 mg BID GT 11/09/24 22:00 11/13/24 08:12 1,000 MG Pantoprazole Sodium 40 mg DAILY IV 11/10/24 10:00 11/13/24 08:07 40 MG Acetaminophen 650 mg Q6HP PRN GT 11/09/24 21:30 11/12/24 03:32 650 MG Vancomycin HCl 0 ml @ 0 mls/hr UD IV 11/09/24 21:30 Levalbuterol HCl 0.625 mg Q6HR NEB 11/10/24 00:00 11/13/24 11:26 0.625 MG Ipratropium [place] 0.5 mg Q6HR NEB 11/10/24 00:00 11/13/24 11:26 0.5 MG Acetylcysteine 200 mg Q6HR NEB 11/10/24 00:00 11/13/24 11:26 200 MG Lacosamide 150 mg BID GT 11/10/24 10:00 11/13/24 08:09 150 MG Enteral Nutritional Formula 1,000 ml 30ML/HR GT 11/10/24 09:30 Lorazepam 1 mg Q5MINP PRN IV 11/10/24 15:30 11/11/24 13:53 1 MG Clonazepam 1 mg Q8HP GT 11/11/24 12:15 Hold Dexamethasone Sodium Phosphate 10 mg Q6HR IV 11/12/24 12:00 11/13/24 06:05 10 MG Vancomycin HCl 250 ml @ 100 mls/hr Q8H IV 11/13/24 01:30 11/13/24 08:15 100 MLS/HR Ceftazidime/ Dextrose 50 ml @ 12.5 mls/hr Q8HR IV 11/13/24 04:45 11/13/24 07:58 12.5 MLS/HR Examination Physical Examination General: Patient is paraplegic due to traumatic brain injury and nonverbal. HEENT: Normocephalic, atraumatic, moist mucous membranes Respiratory/pulmonary: Patient has tracheostomy tube in place currently at 10 L of oxygen through the tracheal tube. There are bilateral secretion sounds on both lung mayo. Cardiovascular: Irregular heart sounds S1 and S2 with no associated murmurs Abdomen: Abdomen nondistended, there is no pain to palpation in any of the abdominal quadrants, no palpable masses. There is a G-tube Extremities: There mild lower extremity edema bilaterally. There is significant upper extremity swelling at the level of both hands. Skin: The patient is having a widespread rash, family states that started after receiving IV antibiotics. Rash is slightly better compared to previous days. Neurological: Paraplegic, nonverbal laboratory and microbiology Laboratory Tests 11/13/24 05:53 Test 11/13/24 05:53 Range/Units Serum Glucose 114 H 74-106 mg/dL Microbiology Date/Time Source Procedure Growth Status 11/12/24 12:55 Cerebral Spinal Fluid Gram Stain - Final Resulted 11/12/24 12:55 Cerebral Spinal Fluid CSF Culture & Gram Stain (Tube 2) M - Preliminary Resulted 11/11/24 08:08 Nose MRSA Screen - Final Complete 11/10/24 12:10 Voided Urine Urine Culture - Final Complete 11/09/24 22:14 Blood Blood Culture - Preliminary NO GROWTH AFTER 72 HOURS OF INCUBATION. Resulted Problem List/Assessment/Plan Problem List/Assessment/Plan Assessment/plan Acute hypoxic respiratory failure likely due to gram positive/negative bacterial pneumonia R/O Acute meningitis Sepsis likely due to above Quadriplegic due to traumatic brain injury in 2014 Seizure disorder History of cranial surgery with ventriculoperitoneal shunt History of endocarditis, previously treated History of gastrostomy tube placement Plan -Initial chest x-ray showed low lung volume with possible bibasilar atelectasis -head CT showed frontal approach ventriculostomy catheter within the ventricle been significantly decompressed and left frontotemporal encephalomalacia. -lumbar puncture was performed today which showed WBC 9, RBC 84, protein 57.8, glucose 52. -cerebrospinal fluid preliminary cultures are showing no growth so far -Will wait for final CSF cultures -CT scan of the chest is showing bilateral lower lobe opacities which could be due to atelectasis but no evidence of clear consolidations. -Meningitis less likely -Continue IV vancomycin -continue Ceftazidime 2Gr Q8hr -Benadryl and steroids for rash, also decrease rate on vanco. -Cont rest of plan per primary team Goals of care discussed with the sister at bedside for >35min, FULL CODE Plan discussed with Dr. Velasco -------- Assessment Dr. Edgard Velasco Patient is a 49 year old male with a past medical history of a traumatic brain injusry on 09/11/2013 . endocarditis , ceder disorder and trach , was brought in with labored breathing a fever . hes had recurrent hospitalizations , was at a long term when he started to have labored breathing . febrile episode . He was recently discharged home but was not getting additional care . patient was starting to require supplemental oxygen and got up to 8-10 liters through trach tube . whitecount is 17.2 . trach cultures grew astonita bacterbomie in the past , pseudomonas . patient has a lumbar puncture done . concern for altered mental status and has a rash after dose of vancomycin and zosyn . History of cranial surgery with ventricular peritoneal shunt. Patient currently has SOB , responding to simple questions but otherwise nonverbal however this is his baseline . has a rash . chest xray showed low lung volumes with possible bibasilar atelectasis. low overall suspicion for meningitis at this time 11/13: rash has significantly improved , still elevated whitecount of 17.2 and on 8 liters trach collar . patient does not use oxygen at home per . growing pseudomonas and group g strep on respiratory cultures Plan : - empirically cover for MRSA until cultures are finalized - continue vancomycin , ceftazidine , Benadryl - less likely thierry syndrome Agree with subjective , assessment , plan as written above execpt as noted by Dr. Cutler Plan discussed with: Other My Orders My Orders Orders - CHELSEA MARTIN Procedure Category Date Status Time Ceftazidime 2gm/Ns PHA 11/13/24 In Process (Fortaz 2gm/Ns) 04:45 Dietary Evaluation Review Comments: Nutrition recommendation 1) TF Jevity 1.2Cal @ 60ml/hr. Start @ 20ml/hr, increase 10ml/hr Q4H until goal is reached. TF @ goal volume provides 1728 kcal (100% energy needs), 80gm protein (100% protein needs), 1162ml free water. 2) Water flush 100ml Q4H 3) Monitor NPO status, TF tolerance, lab values, wt trend, I/O Expected Outcomes/Goals: To meet >75% estimated needs Fu 2-3 days CHELSEA MARTIN Nov 13, 2024 11:48 EDGARD VELASCO MD Nov 29, 2024 18:36
[2024-11-13] MEDS: VANCOMYCIN 1GM/200ML PM 200 ML IV ONE (16:51)
--- NOTE | 2024-11-13 17:15 | DVHPNRES ---
Progress Note Has the PT tested + for MRSA If YES, has PT been informed?: No Medical Necessity Reason Pt with a Central, PICC or Fol: No Objective vital signs Vital Sign Date Time Temp Pulse Resp B/P (MAP) Pulse Ox O2 Delivery O2 Flow Rate FiO2 11/13/24 16:00 34 91 T-piece 10 35 35 11/13/24 16:00 101 11/13/24 16:00 133/64 (87) 11/13/24 14:00 99.0 99.0 Total Intake and Output 11/12/24 11/12/24 11/13/24 15:00 23:00 07:00 Intake Total 1550 ml 250 ml Output Total 1720 ml 400 ml Balance -170 ml -150 ml medications Current Medications Medications Dose Ordered Sig/Ata Route Start Time Stop Time Status Last Admin Dose Admin Levetiracetam 1,000 mg BID GT 11/09/24 22:00 11/13/24 08:12 1,000 MG Pantoprazole Sodium 40 mg DAILY IV 11/10/24 10:00 11/13/24 08:07 40 MG Acetaminophen 650 mg Q6HP PRN GT 11/09/24 21:30 11/12/24 03:32 650 MG Vancomycin HCl 0 ml @ 0 mls/hr UD IV 11/09/24 21:30 Levalbuterol HCl 0.625 mg Q6HR NEB 11/10/24 00:00 11/13/24 11:26 0.625 MG Ipratropium [place] 0.5 mg Q6HR NEB 11/10/24 00:00 11/13/24 11:26 0.5 MG Acetylcysteine 200 mg Q6HR NEB 11/10/24 00:00 11/13/24 11:26 200 MG Lacosamide 150 mg BID GT 11/10/24 10:00 11/13/24 08:09 150 MG Enteral Nutritional Formula 1,000 ml 30ML/HR GT 11/10/24 09:30 Lorazepam 1 mg Q5MINP PRN IV 11/10/24 15:30 11/11/24 13:53 1 MG Clonazepam 1 mg Q8HP GT 11/11/24 12:15 Hold Dexamethasone Sodium Phosphate 10 mg Q6HR IV 11/12/24 12:00 11/13/24 16:50 10 MG Vancomycin HCl 250 ml @ 100 mls/hr Q8H IV 11/13/24 01:30 11/13/24 16:50 100 MLS/HR Ceftazidime/ Dextrose 50 ml @ 12.5 mls/hr Q8HR IV 11/13/24 04:45 11/13/24 14:11 12.5 MLS/HR laboratory and microbiology Laboratory Tests 11/13/24 05:53 Test 11/13/24 05:53 Range/Units Serum Glucose 114 H 74-106 mg/dL Microbiology Date/Time Source Procedure Growth Status 11/12/24 12:55 Cerebral Spinal Fluid Gram Stain - Final Resulted 11/12/24 12:55 Cerebral Spinal Fluid CSF Culture & Gram Stain (Tube 2) M - Preliminary Resulted 11/11/24 08:08 Nose MRSA Screen - Final Complete 11/10/24 12:10 Voided Urine Urine Culture - Final Complete 11/09/24 22:14 Blood Blood Culture - Preliminary NO GROWTH AFTER 72 HOURS OF INCUBATION. Resulted Problem List/Assessment/Plan Problem List/Assessment/Plan Sepsis due to possible neuroinfection Seizure disorder S/p traumatic brain injury S/p ventriculoperitoneal shunt Quadriplegic IV fluids - Lorazepam PRN - on Keppra 1000 mg b.i.d. - lacosamide 150 mg b.i.d. 11/11/2024: LP will be done tomorrow, patient is having clonus and possible partial seizures, neurologist was consulted, wbc is trending high, sputum culture is showing gram negative rods, blood cultures prelim negative, patient will be continued in meropenem, vancomycin, ampicilin and acyclovir, head ct scan showed: Frontal approach ventriculostomy catheter with the ventricles being significantly decompressed. Left frontoparietal encephalomalacia. 11/12/2024: LP done, CSF fluid: wbc 9 rbc 84 protein 57 glucose 52, pending gram, culture and hsv pcr, HR is 110 lpm, T 99.6, dexamethasone started Acute on chronic hypoxic respiratory failure Probable aspiration pneumonia due to gram +/- bacteria Sepsis likely due to pneumonia s/p tracheostomy - chest x-ray shows right lower lobe opacity, bibasilar atelectasis - duo nebs q.6 hours - acetylcysteine - acinobacter baumani is growing in the sputum, ID consulted, Chest CT ordered, patient is still having generalized rash, - blood culture pending - IV fluids - IV vancomycin and meropenem - urinalysis: blood 1+, ketones 1+ H/o endocarditis(in 2013) - blood cultures pending - echo: no severe valve abnormalities noted s/gastrostomy continue tube feedings PUD prophylaxis: Protonix PICC line order Goals of care discussed with the patient's mother Amelia for over 23 minutes. Full code Time spent: 43 minutes Plan discussed with Dr. Man My Orders My Orders Orders - ROSIBEL GREEN RESIDENT Procedure Category Date Status Time Insert Midline ORDERS 11/13/24 Transmitted 11:26 Dietary Evaluation Review Comments: Nutrition recommendation 1) TF Jevity 1.2Cal @ 60ml/hr. Start @ 20ml/hr, increase 10ml/hr Q4H until goal is reached. TF @ goal volume provides 1728 kcal (100% energy needs), 80gm protein (100% protein needs), 1162ml free water. 2) Water flush 100ml Q4H 3) Monitor NPO status, TF tolerance, lab values, wt trend, I/O Expected Outcomes/Goals: To meet >75% estimated needs Fu 2-3 days ROSIBEL GREEN RESIDENT Nov 13, 2024 17:15
[2024-11-13 23:07] LABS: HSV-1 DNA CSF Negative (Negative); HSV-2 DNA Negative (Negative)
[2024-11-14] VITALS (36 sets, daily range): BP systolic 91–132; BP diastolic 44–78; PULSE 69–103; RESP 12–35; TEMP 98.4–100.2; O2SAT 92–100
[2024-11-14] MEDS: VANCOMYCIN 1GM/200ML PM 200 ML IV ONE ×3 (01:12→17:08)
[2024-11-14 08:39] LABS: Anion Gap 10 (5-15); Carbon Dioxide 24 mmol/L (20-31); Potassium 3.7 mmol/L (3.5-5.1)
[2024-11-14] MEDS ORDERED: BACL10TA GT (08:39)
[2024-11-14] MEDS ORDERED: ASCO500T11 GT (08:40)
[2024-11-14] MEDS ORDERED: DIPH25CA66 PO (08:44)
[2024-11-14 08:45] LABS: BUN/Creatinine Ratio 25.0 (10.0-20.0); Blood Urea Nitrogen 13 mg/dL (9-23)
[2024-11-14] MEDS ORDERED: ACE30IS IN (08:46)
[2024-11-14 08:47] LABS: Calcium 8.7 mg/dL (8.7-10.4); Chloride 112 mmol/L (98-107); Glucose 126 mg/dL (74-106); Sodium 146 mmol/L (136-145)
[2024-11-14] MEDS ORDERED: CHL12OR MT (08:48)
[2024-11-14] MEDS ORDERED: POLY335015 PO (08:53)
[2024-11-14 08:59] LABS: Hematocrit 44.0 % (41.0-53.0); Hemoglobin 14.9 g/dL (13.5-17.5); Mean Corpuscular Hemoglobin 29.4 pg (28.0-32.0); Mean Corpuscular Volume 86.9 fL (80.0-100.0); Nucleated Red Blood Cells % 0.0 %
[2024-11-14] MEDS ORDERED: GLYC1SOL PO (09:07)
[2024-11-14] MEDS ORDERED: IPRA0.00 IN (09:13)
[2024-11-14 09:16] LABS: Magnesium 2.4 mg/dL (1.6-2.6)
[2024-11-14] MEDS: LACOSAMIDE 50 MG TAB ONE (10:32)
[2024-11-14] MEDS ORDERED: LORA-622 PO (11:57)
[2024-11-14] MEDS ORDERED: LACO150T3 GT (11:58)
[2024-11-14] MEDS ORDERED: LEVA3NEB IN (12:00)
[2024-11-14] MEDS ORDERED: LORA-1121 GT (12:02)
[2024-11-14] MEDS ORDERED: MULT-1018 GT (12:03)
[2024-11-14] MEDS ORDERED: ZINC220C8 GT (12:04)
[2024-11-14] MEDS ORDERED: POTA-36 GT (12:04)
[2024-11-14] MEDS ORDERED: AMINLIQ64 OR (12:06)
[2024-11-14] MEDS ORDERED: LEVE100012 PO (12:08)
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
[2024-11-14] MEDS: BACLOFEN 10 MG TAB GT SCH (15:25)
[2024-11-14] MEDS: ACETYLCYSTEINE 20%(200MG/ML) SOL 4ML ONE (18:42)
[2024-11-14] MEDS: LEVALBUTEROL HCL 1.25 MG/3 ML NEB ONE (18:42)
[2024-11-14] MEDS: IPRATROPIUM BROM 0.5 MG/2.5ML INH SOL ONE (18:42)
--- NOTE | 2024-11-14 20:49 | DVHPN2 ---
Progress Note - Dictate Date Seen: Nov 14, 2024 Has the PT tested + for MRSA If YES, has PT been informed?: No Medical Necessity Reason Pt with a Central, PICC or Fol: No Subjective Mr. Molina is a 49 years old gentleman with a history of traumatic brain injury, craniotomy, seizure disorder, he was brought to the [facility] on 11/09/2024 with a chief company of fever, tachycardia, desaturation. I have seen and examined the patient, I have discussed with his nurse, mother in the room with him, he is awake, he tracks, respond to verbal stimuli, he has a good social smile His baclofen was on hold, mother reports increased muscle tone, CSF profile, 11/12/2024: C/C, WBC: Nine, Nancy: 73, motor 27, protein 57.9, glucose 52 Urinalysis, 11/10/2024: WBC: 2, urine leukocyte esterase: Negative CBC, 11/11/2024: Respiratory alkalosis WBC/HB/PLT/MCV, 11/11/2024: 19.4/16.5/139/90.1 TBI/AST/ALT/AP, 11/10/2024: 1.1/35/59/74 Chest x-ray, 11/11/2024: Cardiomegaly without overt failure Chest x-ray, 11/12/2024: Cardiomegaly with pulmonary congestion and edema. Superimposed pneumonia cannot be excluded CT head, 11/10/2024: No intracranial hemorrhage .Right frontal approach ventriculostomy catheter with the ventricles being significantly decompressed. Left frontoparietal encephalomalacia. vital signs Vital Sign Date Time Temp Pulse Resp B/P (MAP) Pulse Ox O2 Delivery O2 Flow Rate FiO2 11/14/24 18:52 98 24 97 11/14/24 18:42 T-piece 5.0 11/14/24 18:42 35 35 11/14/24 18:00 98.6 122/63 (82) 209.5 Total Intake and Output 11/13/24 11/13/24 11/14/24 15:00 23:00 07:00 Intake Total 362.5 ml 662.5 ml 792.5 ml Output Total 1000 ml 1300 ml Balance 362.5 ml -337.5 ml -507.5 ml medications Current Medications Medications Dose Ordered Sig/Ata Route Start Time Stop Time Status Last Admin Dose Admin Levetiracetam 1,000 mg BID GT 11/09/24 22:00 11/14/24 10:22 1,000 MG Pantoprazole Sodium 40 mg DAILY IV 11/10/24 10:00 11/14/24 09:59 40 MG Acetaminophen 650 mg Q6HP PRN GT 11/09/24 21:30 11/12/24 03:32 650 MG Vancomycin HCl 0 ml @ 0 mls/hr UD IV 11/09/24 21:30 Levalbuterol HCl 0.625 mg Q6HR NEB 11/10/24 00:00 11/14/24 18:41 0.625 MG Ipratropium [place] 0.5 mg Q6HR NEB 11/10/24 00:00 11/14/24 18:41 0.5 MG Acetylcysteine 200 mg Q6HR NEB 11/10/24 00:00 11/14/24 18:42 200 MG Lacosamide 150 mg BID GT 11/10/24 10:00 11/14/24 10:13 100 MG Enteral Nutritional Formula 1,000 ml 30ML/HR GT 11/10/24 09:30 Lorazepam 1 mg Q5MINP PRN IV 11/10/24 15:30 11/11/24 13:53 1 MG Dexamethasone Sodium Phosphate 10 mg Q6HR IV 11/12/24 12:00 11/14/24 18:32 10 MG Vancomycin HCl 250 ml @ 100 mls/hr Q8H IV 11/13/24 01:30 11/14/24 17:07 100 MLS/HR Ceftazidime/ Dextrose 50 ml @ 12.5 mls/hr Q8HR IV 11/13/24 04:45 11/14/24 13:40 12.5 MLS/HR Baclofen 20 mg Q8HR PO 11/14/24 22:00 objective General: the patient is well developed and nourished. No acute distress. MENTAL STATUS: Subjective SPEECH, LANGUAGE, HIGHER CORTICAL FUNCTION: He does not vocalize/status post tracheostomy CRANIAL NERVES: Pupils are equal, round and reactive. EOMs full and conjugate. Facial sensation intact in all three divisions bilaterally. Mandibular strength intact. Facial muscles symmetrical and strength intact. SENSATION: Responsive to touch stimuli MOTOR: Increased tone in the upper and lower extremity. Diffuse muscle atrophy. No fasciculations. No abnormal movements or posturing. No spontaneous movement in the extremities REFLEXES: Deep tendon reflexes are diffusely increased, with clonus in the upper extremities, bilateral ankles. Upgoing toes in both feet CEREBELLAR/COORDINATION: Deferred GAIT/STATION: deferred. laboratory and microbiology Laboratory Tests 11/14/24 08:48 11/14/24 08:00 Test 11/14/24 08:00 Range/Units Serum Glucose 126 H 74-106 mg/dL Problem List Fever, ALOC with elevated WBC, protein Partially treated meningitis Aseptic meningitis Seizure breakthrough, fever, to rule out meningitis Generalized tonic-clonic seizure secondary to traumatic brain injury Chronic traumatic brain injury status post craniotomy, MIR[employer] M[employer]ER shunt ? 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 Keppra 1000 mg b.i.d. Resume baclofen 20 mg t.i.d., and increased to 20 mg q.i.d. on Sunday if he has no sedation or other side effects Ativan for seizure breakthrough DVT prophylaxis GI prophylaxis More recommendation per clinical course This medical document was created using an electronic medical record system with [employer] dictation system. Although this document has been carefully reviewed, there may still be some phonetic and typographical errors. These areas are purely typographical due to imperfections of the software programs, and do not reflect any compromise in the patient's medical care. Prognosis poor Dietary Evaluation Review Comments: Nutrition recommendation 1) TF Jevity 1.2Cal @ 60ml/hr. Start @ 20ml/hr, increase 10ml/hr Q4H until goal is reached. TF @ goal volume provides 1728 kcal (100% energy needs), 80gm protein (100% protein needs), 1162ml free water. 2) Water flush 100ml Q4H 3) Monitor NPO status, TF tolerance, lab values, wt trend, I/O Expected Outcomes/Goals: To meet >75% estimated needs Fu 2-3 days Plan discussed with: AGNIESZKA Mckeon MD Nov 14, 2024 20:49
[2024-11-14] MEDS: BACLOFEN 10 MG TAB PO ONE (20:56)
[2024-11-14] MEDS: BACLOFEN 10 MG TAB PO SCH (21:52)
[2024-11-15] VITALS (67 sets, daily range): BP systolic 93–141; BP diastolic 39–65; PULSE 55–86; RESP 16–30; TEMP 98.2–99; O2SAT 92–100
[2024-11-15 02:55] LABS: Hematocrit 41.8 % (41.0-53.0); Hemoglobin 14.2 g/dL (13.5-17.5); Mean Corpuscular Hemoglobin 29.4 pg (28.0-32.0); Mean Corpuscular Volume 86.4 fL (80.0-100.0); Nucleated Red Blood Cells % 0.1 %
[2024-11-15 03:02] LABS: Potassium 3.8 mmol/L (3.5-5.1); Sodium 142 mmol/L (136-145)
[2024-11-15 03:03] LABS: Anion Gap 9 (5-15); Carbon Dioxide 24 mmol/L (20-31)
[2024-11-15 03:08] LABS: BUN/Creatinine Ratio 31.7 (10.0-20.0); Blood Urea Nitrogen 13 mg/dL (9-23)
[2024-11-15 03:14] LABS: Calcium 7.8 mg/dL (8.7-10.4); Chloride 109 mmol/L (98-107); Glucose 112 mg/dL (74-106)
--- NOTE | 2024-11-15 05:40 | DVH ---
CHEST RADIOGRAPH Indication: pneumonia fu Technique: Frontal view of the chest. Comparison: XY CHEST XRAY 1 VIEW on DOS: 11/12/24, XY CHEST XRAY 1 VIEW on DOS: 11/11/24, XY CHEST PORT ABLE on DOS: 11/09/24, XY CHEST XRAY 1 VIEW on DOS: 11/12/24 FINDINGS: LUNGS AND PLEURAL SPACES: See below. HEART: Cardiomegaly with pulmonary congestion and edema. Superimposed pneumonia cannot be excluded. MEDIASTINUM: Unremarkable. Normal mediastinal contour. BONES/JOINTS: Unremarkable. No acute fracture. IMPRESSION: Cardiomegaly with pulmonary congestion and edema. Superimposed pneumonia cannot be excluded.
[2024-11-15] MEDS: VANCOMYCIN 1GM/200ML PM 200 ML IV ONE (08:16)
--- NOTE | 2024-11-15 11:42 | DVHPNRES ---
Progress Note Date Seen: Nov 15, 2024 Resident Creating Document: ADAMS CHAPMAN ATA Has the PT tested + for MRSA If YES, has PT been informed?: No Medical Necessity Reason Pt with a Central, PICC or Fol: No Subjective Review of Systems Patient is seen and examined at the bedside Being nonverbal, could not provide review of system. Patient reports: No new complaints, Feels better Changes from previous H/P or p: Changes Objective vital signs Vital Sign Date Time Temp Pulse Resp B/P (MAP) Pulse Ox O2 Delivery O2 Flow Rate FiO2 11/15/24 10:30 80 19 106/58 (74) 11/15/24 10:15 94 T-piece 5 35 35 11/15/24 08:00 98.3 98.3 Total Intake and Output 11/14/24 11/14/24 11/15/24 15:00 23:00 07:00 Intake Total 350.0 ml 693.0 ml 282 ml Output Total 1550 ml 1275 ml Balance 350.0 ml -857.0 ml -993 ml medications Current Medications Medications Dose Ordered Sig/Ata Route Start Time Stop Time Status Last Admin Dose Admin Levetiracetam 1,000 mg BID GT 11/09/24 22:00 11/15/24 08:17 1,000 MG Pantoprazole Sodium 40 mg DAILY IV 11/10/24 10:00 11/15/24 08:17 40 MG Acetaminophen 650 mg Q6HP PRN GT 11/09/24 21:30 11/12/24 03:32 650 MG Vancomycin HCl 0 ml @ 0 mls/hr UD IV 11/09/24 21:30 Levalbuterol HCl 0.625 mg Q6HR NEB 11/10/24 00:00 11/15/24 05:53 0.625 MG Ipratropium [place] 0.5 mg Q6HR NEB 11/10/24 00:00 11/15/24 05:54 0.5 MG Acetylcysteine 200 mg Q6HR NEB 11/10/24 00:00 11/15/24 05:53 200 MG Lacosamide 150 mg BID GT 11/10/24 10:00 11/15/24 08:17 150 MG Enteral Nutritional Formula 1,000 ml 30ML/HR GT 11/10/24 09:30 Lorazepam 1 mg Q5MINP PRN IV 11/10/24 15:30 11/11/24 13:53 1 MG Dexamethasone Sodium Phosphate 10 mg Q6HR IV 11/12/24 12:00 11/15/24 06:23 10 MG Vancomycin HCl 250 ml @ 100 mls/hr Q8H IV 11/13/24 01:30 11/15/24 08:18 100 MLS/HR Ceftazidime/ Dextrose 50 ml @ 12.5 mls/hr Q8HR IV 11/13/24 04:45 11/15/24 06:23 12.5 MLS/HR Baclofen 20 mg Q8HR PO 11/14/24 22:00 11/15/24 06:24 20 MG Examination Gen - no pallor, no icterus, no cyanosis, no clubbing, no LAD, Skin - Patients skin is warm and dry. generalized rash HEENT - status post cranial surgery with a left hemicranium, moist mucous membranes. Neck - no LAD, no JVD Pulmonary - B/L course rales heard, no wheezing, no stridor. cardiovascular - regular S1,S2 heard, left lower sternal border systolic murmur heard. peripheral pulses normal radial 2+, pedal 2+. capillary refill normal <2 secs. GI - soft abdomen. no hepatospleenomegaly. Bowel sounds normoactive Neurological - patient is nonverbal, quadriplegic, spontaneous eye opening, responds to mother on verbal command, clonus laboratory and microbiology Laboratory Tests 11/15/24 02:16 Test 11/15/24 02:16 Range/Units Serum Glucose 112 H 74-106 mg/dL Microbiology Date/Time Source Procedure Growth Status 11/12/24 12:55 Cerebral Spinal Fluid Gram Stain - Final Resulted 11/12/24 12:55 Cerebral Spinal Fluid CSF Culture & Gram Stain (Tube 2) M - Preliminary Resulted 11/11/24 08:08 Nose MRSA Screen - Final Complete 11/10/24 12:10 Voided Urine Urine Culture - Final Complete 11/09/24 22:14 Blood Blood Culture - Final NO GROWTH AFTER 5 DAYS OF INCUBATION. Complete Labs and/or images reviewed: Labs reviewed by me, Image(s) reviewed by me Problem List/Assessment/Plan Problem List/Assessment/Plan Problem List/Assessment/Plan Acute metabolic encephalopathy due to Sepsis Seizure disorder S/p traumatic brain injury S/p ventriculoperitoneal shunt Quadriplegic Meningitis ruled out? IV fluids - Lorazepam PRN - on Keppra 1000 mg b.i.d. - lacosamide 150 mg b.i.d. 11/11/2024: LP will be done tomorrow, patient is having clonus and possible partial seizures, neurologist was consulted, wbc is trending high, sputum culture is showing gram negative rods, blood cultures prelim negative, patient will be continued in meropenem, vancomycin, ampicilin and acyclovir, head ct scan showed: Frontal approach ventriculostomy catheter with the ventricles being significantly decompressed. Left frontoparietal encephalomalacia. 11/12/2024: LP done, CSF fluid: wbc 9 rbc 84 protein 57 glucose 52, pending gram, culture and hsv pcr, HR is 110 lpm, T 99.6, dexamethasone started 11/13/2024: I&D considered sepsis is caused by pneumonia, AB were downgraded to vancomycin, ceftazidime, meningitis ruled out. Acute on chronic hypoxic respiratory failure Probable aspiration pneumonia due to gram +/- bacteria Sepsis likely due to pneumonia s/p tracheostomy - chest x-ray shows right lower lobe opacity, bibasilar atelectasis - duo nebs q.6 hours - acetylcysteine - acinobacter baumani is growing in the sputum, ID consulted, Chest CT ordered, patient is still having generalized rash, - blood culture pending - IV fluids - 11/13/2024: wbc is trending down, HR between 100- 105, less erythema, RR is improving, patient is getting better, I&D considered sepsis is caused by pneumonia, AB were downgraded to vancomycin, ceftazidime -sputum culture came positive for pseudomona aeruginosa and streptococcus?? - urinalysis: blood 1+, ketones 1+ 11/14/2024: less erythema, we are going to restart baclofen, HR normal, patient is having more secretions today H/o endocarditis(in 2013) - blood cultures pending - echo: no severe valve abnormalities noted s/gastrostomy continue tube feedings PUD prophylaxis: Protonix PICC line order Code status. Full code Critical care time spent 76 minutes, excluding any procedure Disposition: ICU status Plan discussed with Dr. Stevenson Plan discussed with: Patient, Other (RN) Dietary Evaluation Review Comments: Nutrition recommendation 1) TF Jevity 1.2Cal @ 60ml/hr. Start @ 20ml/hr, increase 10ml/hr Q4H until goal is reached. TF @ goal volume provides 1728 kcal (100% energy needs), 80gm protein (100% protein needs), 1162ml free water. 2) Water flush 100ml Q4H 3) Monitor NPO status, TF tolerance, lab values, wt trend, I/O Expected Outcomes/Goals: To meet >75% estimated needs Fu 2-3 days Date of Service: Nov 15, 2024 Billing Provider: ELMER STEVENSON MD Common Visit Codes: [id number] INP/OBS CARE(HIGH) ADAMS CHAPMAN RESDIBIB Nov 15, 2024 11:42 ELMER STEVENSON MD Nov 24, 2024 20:50
[2024-11-16] VITALS (59 sets, daily range): BP systolic 89–137; BP diastolic 30–61; PULSE 53–81; RESP 17–26; TEMP 96.8–99; O2SAT 90–97
--- NOTE | 2024-11-16 01:49 | DVH ---
CHEST RADIOGRAPH Indication: Pneumonia Technique: Single frontal view of the chest was obtained Comparison: XY CHEST XRAY 1 VIEW on DOS: 11/15/24, XY CHEST XRAY 1 VIEW on DOS: 11/12/24, XY CHEST XRAY 1 VIEW on DOS: 11/11/24, XY CHEST PORTABLE on DOS: 11/09/24 FINDINGS/IMPRESSION: The lung apices are excluded from field of view. There is increase in opacities throughout the right lung, likely at least partially referable to pulmonary vascular congestion. Small bilateral pleural effusions cannot be excluded. Unchanged cardiomediastinal silhouette. No definite pneumothorax. Un changed osseous structures. A repeat examination with inclusion of the lung apices is suggested.
[2024-11-16 03:47] LABS: Hematocrit 42.8 % (41.0-53.0); Hemoglobin 14.3 g/dL (13.5-17.5); Mean Corpuscular Hemoglobin 29.3 pg (28.0-32.0); Mean Corpuscular Volume 87.7 fL (80.0-100.0); Nucleated Red Blood Cells % 0.1 %
[2024-11-16 04:02] LABS: Potassium 3.8 mmol/L (3.5-5.1); Sodium 141 mmol/L (136-145)
[2024-11-16 04:03] LABS: Anion Gap 9 (5-15); Carbon Dioxide 23 mmol/L (20-31)
[2024-11-16 04:08] LABS: BUN/Creatinine Ratio 35.6 (10.0-20.0); Blood Urea Nitrogen 16 mg/dL (9-23); Glucose 106 mg/dL (74-106)
[2024-11-16 04:09] LABS: Magnesium 2.5 mg/dL (1.6-2.6)
[2024-11-16 04:19] LABS: Calcium 7.8 mg/dL (8.7-10.4); Chloride 109 mmol/L (98-107)
[2024-11-16] MEDS: BACLOFEN 10 MG TAB PO SCH (07:00)
[2024-11-16] MEDS: VANCOMYCIN 1GM/200ML PM 200 ML IV ONE ×2 (09:33→18:04)
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
--- NOTE | 2024-11-16 23:14 | DVHPN2 ---
Progress Note - Dictate Date Seen: Nov 16, 2024 Has the PT tested + for MRSA If YES, has PT been informed?: No Medical Necessity Reason Pt with a Central, PICC or Fol: No Subjective Mr. Molina is a 49 years old gentleman with a history of traumatic brain injury, craniotomy, seizure disorder, he was brought to the [facility] on 11/09/2024 with a chief company of fever, tachycardia, desaturation. I have seen and examined the patient, I have discussed with his nurse, mother is in the room with him, he is awake, keeps improving, socially appropriate, Baclofen has been resumed but is 20 mg t.i.d., No new troubles, no seizure activity CSF profile, 11/12/2024: C/C, WBC: Nine, Nancy: 73, motor 27, protein 57.9, glucose 52 Urinalysis, 11/10/2024: WBC: 2, urine leukocyte esterase: Negative CBC, 11/11/2024: Respiratory alkalosis WBC/HB/PLT/MCV, 11/11/2024: 19.4/16.5/139/90.1 TBI/AST/ALT/AP, 11/10/2024: 1.1/35/59/74 Chest x-ray, 11/11/2024: Cardiomegaly without overt failure Chest x-ray, 11/12/2024: Cardiomegaly with pulmonary congestion and edema. Superimposed pneumonia cannot be excluded CT head, 11/10/2024: No intracranial hemorrhage .Right frontal approach ventriculostomy catheter with the ventricles being significantly decompressed. Left frontoparietal encephalomalacia. vital signs Vital Sign Date Time Temp Pulse Resp B/P (MAP) Pulse Ox O2 Delivery O2 Flow Rate FiO2 11/16/24 22:00 98.2 62 26 122/54 (76) 95 208.8 11/16/24 22:00 T-piece 6 35 35 Total Intake and Output 11/15/24 11/15/24 11/16/24 15:00 23:00 07:00 Intake Total 300 ml 720 ml 475 ml Output Total 750 ml 700 ml Balance 300 ml -30 ml -225 ml medications Current Medications Medications Dose Ordered Sig/Ata Route Start Time Stop Time Status Last Admin Dose Admin Levetiracetam 1,000 mg BID GT 11/09/24 22:00 11/16/24 21:50 1,000 MG Pantoprazole Sodium 40 mg DAILY IV 11/10/24 10:00 11/16/24 08:05 40 MG Acetaminophen 650 mg Q6HP PRN GT 11/09/24 21:30 11/12/24 03:32 650 MG Vancomycin HCl 0 ml @ 0 mls/hr UD IV 11/09/24 21:30 Levalbuterol HCl 0.625 mg Q6HR NEB 11/10/24 00:00 11/16/24 17:49 0.625 MG Ipratropium [place] 0.5 mg Q6HR NEB 11/10/24 00:00 11/16/24 17:49 0.5 MG Acetylcysteine 200 mg Q6HR NEB 11/10/24 00:00 11/16/24 17:49 200 MG Lacosamide 150 mg BID GT 11/10/24 10:00 11/16/24 21:51 150 MG Enteral Nutritional Formula 1,000 ml 30ML/HR GT 11/10/24 09:30 Lorazepam 1 mg Q5MINP PRN IV 11/10/24 15:30 11/11/24 13:53 1 MG Dexamethasone Sodium Phosphate 10 mg Q6HR IV 11/12/24 12:00 11/16/24 18:05 10 MG Vancomycin HCl 250 ml @ 100 mls/hr Q8H IV 11/13/24 01:30 11/16/24 17:30 100 MLS/HR Ceftazidime/ Dextrose 50 ml @ 12.5 mls/hr Q8HR IV 11/13/24 04:45 11/16/24 21:52 12.5 MLS/HR Baclofen 20 mg Q6HR PO 11/16/24 07:00 11/16/24 18:05 20 MG objective General: the patient is well developed and nourished. No acute distress. MENTAL STATUS: Subjective SPEECH, LANGUAGE, HIGHER CORTICAL FUNCTION: He does not vocalize/status post tracheostomy CRANIAL NERVES: Pupils are equal, round and reactive. EOMs full and conjugate. Facial sensation intact in all three divisions bilaterally. Mandibular strength intact. Facial muscles symmetrical and strength intact. SENSATION: Responsive to touch stimuli MOTOR: Increased tone in the upper and lower extremity. Diffuse muscle atrophy. No fasciculations. No abnormal movements or posturing. No spontaneous movement in the extremities REFLEXES: Deep tendon reflexes are diffusely increased, with clonus in the upper extremities, bilateral ankles. Upgoing toes in both feet CEREBELLAR/COORDINATION: Deferred GAIT/STATION: deferred. 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 Keppra 1000 mg b.i.d. Increase baclofen to 20 mg q.i.d. Ativan for seizure breakthrough DVT prophylaxis GI prophylaxis More recommendation per clinical course This medical document was created using an electronic medical record system with [employer] dictation system. Although this document has been carefully reviewed, there may still be some phonetic and typographical errors. These areas are purely typographical due to imperfections of the software programs, and do not reflect any compromise in the patient's medical care. Prognosis poor Dietary Evaluation Review Comments: Nutrition recommendation 1) TF Jevity 1.2Cal @ 60ml/hr. Start @ 20ml/hr, increase 10ml/hr Q4H until goal is reached. TF @ goal volume provides 1728 kcal (100% energy needs), 80gm protein (100% protein needs), 1162ml free water. 2) Water flush 100ml Q4H 3) Monitor NPO status, TF tolerance, lab values, wt trend, I/O Expected Outcomes/Goals: To meet >75% estimated needs Fu 2-3 days Plan discussed with: Other AGNIESZKA ESPINOZA MD Nov 16, 2024 23:14
[2024-11-17] VITALS (19 sets, daily range): BP systolic 94–144; BP diastolic 30–59; PULSE 54–81; RESP 14–22; TEMP 98–99; O2SAT 91–100
[2024-11-17] MEDS: VANCOMYCIN 1GM/200ML PM 200 ML IV ONE (02:14)
[2024-11-17 06:48] LABS: Hematocrit 44.6 % (41.0-53.0); Hemoglobin 14.9 g/dL (13.5-17.5); Mean Corpuscular Hemoglobin 29.2 pg (28.0-32.0); Mean Corpuscular Volume 87.2 fL (80.0-100.0); Nucleated Red Blood Cells % 0.1 %
[2024-11-17 07:03] LABS: Potassium 4.1 mmol/L (3.5-5.1); Sodium 140 mmol/L (136-145)
[2024-11-17 07:04] LABS: Anion Gap 9 (5-15); Carbon Dioxide 22 mmol/L (20-31)
[2024-11-17 07:09] LABS: BUN/Creatinine Ratio 29.2 (10.0-20.0); Blood Urea Nitrogen 14 mg/dL (9-23)
[2024-11-17 07:10] LABS: Calcium 8.4 mg/dL (8.7-10.4); Chloride 109 mmol/L (98-107); Glucose 124 mg/dL (74-106)
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
--- NOTE | 2024-11-17 15:43 | DVHPNRES ---
Progress Note Date Seen: Nov 17, 2024 Resident Creating Document: CHELSEA MARTIN RESIDENT Has the PT tested + for MRSA If YES, has PT been informed?: No Medical Necessity Reason Pt with a Central, PICC or Fol: No Subjective Review of Systems Patient seen and examined at bedside. Mother was at bedside, questions and concerns were answered. The mother states that the patient is back to his mental baseline status. The mother states that she is able to communicate and understand him as she used to do before. She reports a significant improvement in his symptoms overall. CSF Gram stain and cultures showed no growth, blood cultures are negative and herpes CSF DNA PCR was negative as well. We suggest to complete IV vancomycin and ceftazidime for seven days and we also agree with the plan of performing a bronchoscopy. Last chest x-ray today show slightly more congestion and opacities in the right lower lobe. Echocardiogram showed LVEF of 65% with no valve abnormalities. ROS unable to obtain due to patient's current status. Objective vital signs Vital Sign Date Time Temp Pulse Resp B/P (MAP) Pulse Ox O2 Delivery O2 Flow Rate FiO2 11/17/24 13:00 99.0 64 17 135/50 (78) 95 99.0 11/17/24 11:57 T-piece 8.0 11/17/24 11:57 30 30 Total Intake and Output 11/16/24 11/16/24 11/17/24 15:00 23:00 07:00 Intake Total 300 ml 900 ml 0 ml Output Total 650 ml Balance 300 ml 250 ml 0 ml medications Current Medications Medications Dose Ordered Sig/Ata Route Start Time Stop Time Status Last Admin Dose Admin Levetiracetam 1,000 mg BID GT 11/09/24 22:00 11/17/24 14:42 1,000 MG Pantoprazole Sodium 40 mg DAILY IV 11/10/24 10:00 11/17/24 11:56 40 MG Acetaminophen 650 mg Q6HP PRN GT 11/09/24 21:30 11/12/24 03:32 650 MG Vancomycin HCl 0 ml @ 0 mls/hr UD IV 11/09/24 21:30 Levalbuterol HCl 0.625 mg Q6HR NEB 11/10/24 00:00 11/17/24 11:41 0.625 MG Ipratropium [place] 0.5 mg Q6HR NEB 11/10/24 00:00 11/17/24 11:41 0.5 MG Acetylcysteine 200 mg Q6HR NEB 11/10/24 00:00 11/17/24 11:41 200 MG Lacosamide 150 mg BID GT 11/10/24 10:00 11/17/24 11:57 150 MG Enteral Nutritional Formula 1,000 ml 30ML/HR GT 11/10/24 09:30 Lorazepam 1 mg Q5MINP PRN IV 11/10/24 15:30 11/11/24 13:53 1 MG Dexamethasone Sodium Phosphate 10 mg Q6HR IV 11/12/24 12:00 11/17/24 11:56 10 MG Ceftazidime/ Dextrose 50 ml @ 12.5 mls/hr Q8HR IV 11/13/24 04:45 11/17/24 11:57 12.5 MLS/HR Baclofen 20 mg Q6HR PO 11/16/24 07:00 11/17/24 12:01 20 MG Vancomycin HCl 200 ml @ 200 mls/hr Q8H IV 11/17/24 17:00 Examination Physical Examination General: 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 HEENT: Normocephalic, atraumatic, moist mucous membranes Respiratory/pulmonary: Patient has tracheostomy tube in place currently at 6 L of oxygen through the tracheal tube. There are bilateral secretion sounds on both lung mayo. Cardiovascular: Irregular heart sounds S1 and S2 with no associated murmurs Abdomen: Abdomen nondistended, there is no pain to palpation in any of the abdominal quadrants, no palpable masses. There is a G-tube Extremities: There mild lower extremity edema bilaterally. There is significant upper extremity swelling at the level of both hands. Skin: Rash has almost completely resolve by this time. Neurological: Quadraplegic, nonverbal laboratory and microbiology Laboratory Tests 11/17/24 06:12 Test 11/17/24 06:12 Range/Units Serum Glucose 124 H 74-106 mg/dL Microbiology Date/Time Source Procedure Growth Status 11/12/24 12:55 Cerebral Spinal Fluid Gram Stain - Final Complete 11/12/24 12:55 Cerebral Spinal Fluid CSF Culture & Gram Stain (Tube 2) M - Final Complete 11/11/24 08:08 Nose MRSA Screen - Final Complete 11/10/24 12:10 Voided Urine Urine Culture - Final Complete 11/09/24 22:14 Blood Blood Culture - Final NO GROWTH AFTER 5 DAYS OF INCUBATION. 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 -lumbar puncture was performed today which showed WBC 9, RBC 84, protein 57.8, glucose 52. -CSF gram stain and cultures showing no growth after 5 days of incubation -chest x-ray performed today showed more opacities/congestion in the right lung base. -Currently requiring 6L of O2 through trach tube -Continue IV vancomycin -Discontinue Ceftazidime -Start IV levofloxacin -Continue IV abs for at least 7 days -Agree with possible bronchoscopy -Cont rest of plan per primary team Goals of care discussed with the mother at bedside for >35min, FULL CODE Plan discussed with Dr. Velasco -------- Assessment Dr. Edgard Velasco Patient is a 49 year old male with a past medical history of a traumatic brain injusry on 09/11/2013 . endocarditis , ceder disorder and trach , was brought in with labored breathing a fever . hes had recurrent hospitalizations , was at a detention when he started to have labored breathing . febrile episode . He was recently discharged home but was not getting additional care . patient was starting to require supplemental oxygen and got up to 8-10 liters through trach tube . whitecount is 17.2 . trach cultures grew astonita bacterbomie in the past , pseudomonas . patient has a lumbar puncture done . concern for altered mental status and has a rash after dose of vancomycin and zosyn . History of cranial surgery with ventricular peritoneal shunt. Patient currently has SOB , responding to simple questions but otherwise nonverbal however this is his baseline . has a rash . chest xray showed low lung volumes with possible bibasilar atelectasis. low overall suspicion for meningitis at this time 11/13: rash has significantly improved , still elevated whitecount of 17.2 and on 8 liters trach collar . patient does not use oxygen at home per . growing pseudomonas and group g strep on respiratory cultures 11/17: on 8 liters trach collar . planned for bedside bronchoscopy , respirary cultures are finalizing . CSF PCR herpes are negative . mentation and breathing has significantly improved . rash has resolved Plan : - empirically cover for MRSA until cultures are finalized - continue vancomycin , - stop ceftazidine , start levofloxacin in light of hypoxia - less likely thierry syndrome Agree with subjective , assessment , plan as written above execpt as noted by Dr. Cutler Plan discussed with: Other (mother) Dietary Evaluation Review Comments: Nutrition recommendation 1) TF Jevity 1.2Cal @ 60ml/hr. Start @ 20ml/hr, increase 10ml/hr Q4H until goal is reached. TF @ goal volume provides 1728 kcal (100% energy needs), 80gm protein (100% protein needs), 1162ml free water. 2) Water flush 100ml Q4H 3) Monitor NPO status, TF tolerance, lab values, wt trend, I/O Expected Outcomes/Goals: To meet >75% estimated needs Fu 2-3 days CHELSEA MARTIN RESIDENT Nov 17, 2024 15:43 EDGARD VELASCO MD Nov 29, 2024 18:39
[2024-11-17] MEDS: VANCOMYCIN 1GM/200ML PM 200 ML IV SCH (18:01)
--- NOTE | 2024-11-17 19:48 | DVHINCON2 ---
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 Was seen in the emergency room where chest x-ray findings were consistent with pneumonia and he was admitted for IV antibiotics. Patient was also found to have increasing oxygen requirements and was placed on high flow nasal cannula. Pulmonology was consulted to assist in management. Home Meds Reported Medications Levetiracetam (Keppra) 1,000 Mg Tab, 10 LIQ PO BID, #60 TAB 5 Refills 11/14/24 Amino Acids-Protein Hydrolysat (PRO-STAT) Liq, 30 ML OR DAILY, LIQ 11/14/24 Zinc Sulfate (Zinc Sulfate) 220 Mg Cap, 50 MG GT DAILY for 30 Days, MG 11/14/24 Potassium Chloride (POTASSIUM CHLORIDE CR) 10 Meq Tb, 20 MEQ GT DAILY, TAB 11/14/24 Multiple Vitamin (Multivitamins) Tab, 1 TAB GT DAILY, #30 TAB 2 Refills 11/14/24 Lorazepam (ATIVAN TABLET) 0.5 Mg Tb, 0.5 MG GT Q6HPRN PRN for SHORTNESS OF BREATH, TAB 11/14/24 Levalbuterol HCl (Levalbuterol) 1.25 Mg/0.5 Ml Neb, 1.25 MG IN Q4HP PRN for WHEEZING, INH 11/14/24 Lacosamide (Lacosamide) 150 Mg Tab, 150 MG GT BID, TAB 11/14/24 Loratadine (Claritin) 10 Mg Tab, 1 TAB PO DAILY for ALLERGIES, #30 TAB 5 Refills 11/14/24 Ipratropium-Albuterol (Ipratropium [place]/Albut) 1 Trace Trace, 1 TRACE IN Q6HPRN PRN for respiratory failure, ML 11/14/24 Glycopyrrolate (CUVPOSA) 1 Mg/5 Ml Trace, 1 MG PO Q8HPRN PRN for increased secr etions, ML 11/14/24 Polyethylene Glycol 3350 (Miralax) 17 Gm Pow, 17 GM PO 3XW, POW 11/14/24 Chlorhexidine Gluconate (Mouth (CHLORHEXIDINE ORAL RINSE) 473 Ml So, 15 ML MT Q12HR, ML 11/14/24 Acetylcysteine (Acetylcysteine) 20 % Trace, 1 ML IN Q4HP PRN for thick secretions, ML 11/14/24 Diphenhydramine Hcl (Benadryl Allergy) 25 Mg Cap, 25 MG PO Q8HPRN PRN for allergies, CAP 11/14/24 Ascorbic Acid (VITAMIN C TABLET) 500 Mg Tb, 1 TAB GT BID, #60 TAB 11/14/24 Baclofen (Baclofen) 10 Mg Tab, 20 MG GT Q6HR for 30 Days, MG 11/14/24 Past Medical History Cardiac: No pertinent Hx Pulmonary: Other (Chronic tracheostomy ) Central Nervous System: Seizure, Other (TBI, PUBLIC [employer]ATIONS COORDINATOR shunt ) GI: No pertinent Hx Hemotology/Oncology: No pertinent Hx Hepatobiliary: No pertinent Hx Psychiatric: No pertinent Hx Musculoskeletal: No pertinent Hx Rheumotologic: No pertinent Hx Infectious Disease: No peritnent Hx ENT: No pertinent Hx Renal/: No pertinent Hx Endocrine: No pertinent Hx Dermatology: No pertinent Hx Past Surgical History: Other (PUBLIC [employer]ATIONS COORDINATOR shunt ) Family History: No pertinent Hx Smoker: No Hx (Negative) Alocohol: None Drugs: None Lives with: With family Domestic Violence: Neg Review of Systems Constitutional: No symptom reported Ears, Nose, & Throat: No symptom reported Eyes: No symptom reported Pulmonary/Respiratory: Dyspnea, Cough Cardiovascular: No symptom reported Gastrointestinal: No symptom reported Genitourinary: No symptom reported Musculoskeletal: No symptom reported Skin: No symptom reported Psychiatric: No symptom reported Endocrine: No symptom reported Hemotologic/Lymphatic: No symptom reported H&P Exam Vital Signs Vital Signs Date Time Temp Pulse Resp B/P (MAP) Pulse Ox O2 Delivery O2 Flow Rate FiO2 11/17/24 16:31 98.0 56 17 126/52 (76) 93 98.0 11/17/24 11:57 T-piece 8.0 11/17/24 11:57 30 30 General Appeara: Well developed, Well nourished, Normal Appearance Head Exam: Normal inspection Neck Exam: Normal inspection, Non-tender, Normal alignment Eye Exam: bilateral eye Normal inspection, bilateral eye PERRL, bilateral eye EOMI Ear Exam: bilateral ear Auricle normal, bilateral ear Canal normal, bilateral ear TM normal Nasal Exam: Normal inspection Mouth: Normal Inspection Pulmonary/Respiratory: Decreased breath sounds Cardiovascular/Chest: Normal inspection Peripheral Pulses: 4+ Radial (R), 4+ Radial (L), 4+ Brachial (R), 4+ Brachial (L) Abdominal Exam: Normal bowel sounds Labs/Xrays Labs Test 11/17/24 06:12 11/16/24 09:30 11/16/24 03:15 11/12/24 12:55 Range/Units White Blood Count 13.1 H 4.4-10.8 10^3/uL Red Blood Count 5.11 4.5-5.90 10^6/uL Hemoglobin 14.9 13.5-17.5 g/dL Hematocrit 44.6 41.0-53.0 % Mean Corpuscular Volume 87.2 80.0-100.0 fL Mean Corpuscular Hemoglobin 29.2 28.0-32.0 pg Mean Corpuscular Hemoglobin Concent 33.5 32.0-36.0 g/dL Red Cell Distribution Width 13.6 11.8-14.3 % Platelet Count 177 140-450 10^3/uL Mean Platelet Volume 8.9 6.9-10.8 fL Neutrophils (%) (Auto) 82.9 H 37.0-80.0 % Lymphocytes (%) (Auto) 11.0 10.0-50.0 % Monocytes (%) (Auto) 5.6 0.0-12.0 % Eosinophils (%) (Auto) 0.0 0.0-7.0 % Basophils (%) (Auto) 0.5 0.0-2.0 % Neutrophils # (Auto) 10.8 H 1.6-8.6 10 ^3/uL Lymphocytes # (Auto) 1.4 0.4-5.4 10 ^3/uL Monocytes # (Auto) 0.7 0-1.3 10 ^3/uL Eosinophils # (Auto) 0 0-0.8 10 ^3/uL Basophils # (Auto) 0.1 0-0.2 10 ^3/uL Nucleated Red Blood Cells 0.1 % Sodium Level 140 136-145 mmol/L Potassium Level 4.1 3.5-5.1 mmol/L Chloride Level 109 H 98-107 mmol/L Carbon Dioxide Level 22 20-31 mmol/L Anion Gap 9 5-15 Blood Urea Nitrogen 14 9-23 mg/dL Creatinine 0.48 L 0.700-1.30 mg/dL Glomerular Filtration Rate Calc 127 >90 mL/min BUN/Creatinine Ratio 29.2 H 10.0-20.0 Serum Glucose 124 H 74-106 mg/dL Calcium Level 8.4 L 8.7-10.4 mg/dL Vancomycin Level Trough 15.3 H 5-10 ug/mL Magnesium Level 2.5 1.6-2.6 mg/dL CSF Tube Number #3 CSF Appearance Clear CSF WBC 9 H 0-5 CUMM CSF RBC 84 H 0-5 CUMM CSF Protein (Tube 2) 57.8 H 15-45 mg/dL CSF Mononuclear Cells 27 % CSF Polymorphonuclear Cells 73 % CSF Glucose 52 40-70 mg/dL CSF Herpes Simplex I DNA (PCR) Negative Negative CSF Herpes Simplex II DNA (PCR) Negative Negative Test 11/11/24 19:24 11/11/24 13:40 11/11/24 05:30 11/10/24 12:10 Range/Units Blood Gas Specimen Type Arterial Blood Gas Sample Site Right radial Blood Gas Patient Temperature 37.0 Arterial Blood Date Drawn [id number] Arterial Blood pH 7.469 H 7.350-7.450 Arterial Blood Partial Pressure CO2 25.1 L 35.0-48.0 mmHg Arterial Blood Partial Pressure O2 63.3 L 83.0-108.0 mmHg Arterial Blood HCO3 17.8 L 21.0-28.0 mmol/L Arterial Blood Oxygen Saturation 93.6 L 94.0-98.0 % Arterial Blood Base Excess -3.8 L -2.0-3.0 mmol/L Arterial Blood Oxyhemoglobin 91.8 L 94.0-98.0 % Arterial Blood Carboxyhemoglobin 1.1 0.5-1.5 % Arterial Blood Methemoglobin 0.8 0.0-1.5 % José Miguel Test Modified Blood Gas Total Hemoglobin 16.10 13.5-17.5 g/dL Blood Gas Liter Flow 10.00 Blood Gas Modality Cool aerosol FiO2 % 35.0 Levetiracetam Level 26.6 10.0-40.0 ug/mL Lactic Acid Level 1.4 0.4-2.0 mmol/L Acetaminophen Level < 2.0 L 10.0-20.0 UG/ML Urine Color Light-yellow Yellow Urine Clarity Clear Clear Urine pH 5.5 5.0-9.0 Urine Specific [place] 1.022 1.001-1.035 Urine Protein Negative Negative Urine Ketones 1+ H Negative Urine Blood 1+ H Negative /uL Urine Nitrite Negative Negative Urine Bilirubin Negative Negative Urine Urobilinogen Normal Negative mg/dL Urine Leukocyte Esterase Negative Negative /uL Urine RBC 4 0 - 3 /hpf Urine Microscopic WBC 2 0-3 /HPF Urine Squamous Epithelial Cells None seen <5 /hpf Urine Bacteria None seen None Seen /hpf Urine Glucose Normal Normal mg/dL Test 11/10/24 11:59 11/10/24 05:17 11/10/24 04:21 11/09/24 17:28 Range/Units Prothrombin Time 11.5 9.3-11.8 sec Prothrombin Time INR 1.09 0.9-1.15 Activated Partial Thromboplast Time 31.6 24.5-34.5 SEC Hemoglobin A1c 4.8 <5.7 % A1C Total Bilirubin 1.1 H 0.2-1.0 mg/dL Aspartate Amino Transferase (AST) 35 H <34 U/L Alanine Aminotransferase (ALT) 59 H 7-40 U/L Alkaline Phosphatase 74 46-116 U/L Creatine Kinase 128 46-171 U/L Total Protein 7.3 5.7-8.2 g/dL Albumin 4.2 3.2-4.8 g/dL Influenza Type A Antigen Negative Negative Influenza Type B Antigen Negative Negative SARS-CoV-2 Antigen (Rapid) Negative NEGATIVE B-Type Natriuretic Peptide 46.93 0-100 pg/mL Microbiology Date/Time Source Procedure Growth Status 11/12/24 12:55 Cerebral Spinal Fluid Gram Stain - Final Complete 11/12/24 12:55 Cerebral Spinal Fluid CSF Culture & Gram Stain (Tube 2) M - Final Complete 11/11/24 08:08 Nose MRSA Screen - Final Complete 11/10/24 12:10 Voided Urine Urine Culture - Final Complete 11/09/24 22:14 Blood Blood Culture - Final NO GROWTH AFTER 5 DAYS OF INCUBATION. Complete Assessment/Plan Plan Impression Acute hypoxemic respiratory failure Chronic tracheostomy Pneumonia Atelectasis Hx of TBI Patient seen and examined Events Increasing oxygen requirements On high flow 40% Normally on room air at home Sputum culture growing pseudomonas aeruginosa Followed by ID Labs and imaging reviewed Chest x-ray shows infiltrates consistent with pneumonia Management Supplemental oxygen Titrate to maintain sats 90% or above Incentive spirometry Antibiotics F/u cultures and ID Bronchodilators Monitor renal function Monitor electrolytes Supplement as needed Will plan for bronchoscopy for pulmonary toilet DVT prophylaxis Plan discussed with: Patient SCOTT MCLEOD MD Nov 17, 2024 19:48
[2024-11-17] MEDS: Jevity 1.2 Cal/Fiber 1 Liter GT SCH (22:16)
[2024-11-18] VITALS (15 sets, daily range): BP systolic 116–136; BP diastolic 60–75; PULSE 60–85; RESP 16–22; TEMP 97.4–99; O2SAT 92–99
--- NOTE | 2024-11-18 11:33 | DVHPNRES ---
Progress Note Date Seen: Nov 18, 2024 Resident Creating Document: CHELSEA MARTIN RESIDENT Has the PT tested + for MRSA If YES, has PT been informed?: No Medical Necessity Reason Pt with a Central, PICC or Fol: No Subjective Review of Systems Patient seen and examined at bedside. Patient is bed-bound quadriplegic nonverbal. Family members state that the patient mental status is back to baseline. Administrative Supervisor is going to schedule patient for bronchoscopy tomorrow in the afternoon. Meanwhile we will continue IV vancomycin and levofloxacin. Yesterday we switch ceftazidime two levofloxacin because aside from covering for Pseudomonas we want also to cover atypicals microorganisms. Per nurse, there were no major events overnight, no fever. Upon my examination there is decreased breath sounds in the right lung base and there are some secretions in the left lung. Previous rash has almost completely resolved and there is no peripheral edema. The patient still at 6 L of oxygen through the trach tube with an FiO2 of 30%. ROS unable to obtain due to patient's status. Objective vital signs Vital Sign Date Time Temp Pulse Resp B/P (MAP) Pulse Ox O2 Delivery O2 Flow Rate FiO2 11/18/24 08:00 64 18 97 T-piece 6 35 35 11/18/24 05:00 99.0 116/65 (82) 99.0 Total Intake and Output 11/17/24 11/17/24 11/18/24 15:00 23:00 07:00 Intake Total 0 ml 622 ml Output Total 2050 ml 790 ml Balance -2050 ml -168 ml medications Current Medications Medications Dose Ordered Sig/Ata Route Start Time Stop Time Status Last Admin Dose Admin Levetiracetam 1,000 mg BID GT 11/09/24 22:00 11/18/24 09:21 1,000 MG Pantoprazole Sodium 40 mg DAILY IV 11/10/24 10:00 11/18/24 09:23 40 MG Acetaminophen 650 mg Q6HP PRN GT 11/09/24 21:30 11/12/24 03:32 650 MG Vancomycin HCl 0 ml @ 0 mls/hr UD IV 11/09/24 21:30 Levalbuterol HCl 0.625 mg Q6HR NEB 11/10/24 00:00 11/18/24 06:54 0.625 MG Ipratropium [place] 0.5 mg Q6HR NEB 11/10/24 00:00 11/18/24 06:54 0.5 MG Acetylcysteine 200 mg Q6HR NEB 11/10/24 00:00 11/18/24 06:55 200 MG Lacosamide 150 mg BID GT 11/10/24 10:00 11/18/24 09:23 150 MG Enteral Nutritional Formula 1,000 ml 30ML/HR GT 11/10/24 09:30 11/17/24 22:16 1,000 ML Lorazepam 1 mg Q5MINP PRN IV 11/10/24 15:30 11/11/24 13:53 1 MG Dexamethasone Sodium Phosphate 10 mg Q6HR IV 11/12/24 12:00 11/18/24 06:27 10 MG Baclofen 20 mg Q6HR PO 11/16/24 07:00 11/18/24 06:27 20 MG Vancomycin HCl 200 ml @ 200 mls/hr Q8H IV 11/17/24 17:00 11/18/24 09:22 200 MLS/HR Levofloxacin/ Dextrose 150 ml @ 100 mls/hr DAILY IV 11/18/24 10:00 11/18/24 10:33 100 MLS/HR Examination Physical Examination General: 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 HEENT: Normocephalic, atraumatic, moist mucous membranes Respiratory/pulmonary: Patient has tracheostomy tube in place currently at 6 L of oxygen through the tracheal tube. There are bilateral secretion sounds on both lung mayo. Cardiovascular: Irregular heart sounds S1 and S2 with no associated murmurs Abdomen: Abdomen nondistended, there is no pain to palpation in any of the abdominal quadrants, no palpable masses. There is a G-tube Extremities: There mild lower extremity edema bilaterally. There is significant upper extremity swelling at the level of both hands. Skin: Rash has almost completely resolve by this time. Neurological: Quadraplegic, nonverbal laboratory and microbiology Laboratory Tests 11/17/24 06:12 Test 11/17/24 06:12 Range/Units Serum Glucose 124 H 74-106 mg/dL Microbiology Date/Time Source Procedure Growth Status 11/12/24 12:55 Cerebral Spinal Fluid Gram Stain - Final Complete 11/12/24 12:55 Cerebral Spinal Fluid CSF Culture & Gram Stain (Tube 2) M - Final Complete 11/11/24 08:08 Nose MRSA Screen - Final Complete 11/10/24 12:10 Voided Urine Urine Culture - Final Complete 11/09/24 22:14 Blood Blood Culture - Final NO GROWTH AFTER 5 DAYS OF INCUBATION. 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 -lumbar puncture was performed today which showed WBC 9, RBC 84, protein 57.8, glucose 52. -CSF gram stain and cultures showing no growth after 5 days of incubation -chest x-ray performed today showed more opacities/congestion in the right lung base. -Currently requiring 6L of O2 through trach tube -Continue IV vancomycin -Continue IV levofloxacin -Continue IV abs for at least 7 days -patient will undergo bronchoscopy tomorrow in the evening. -Do a follow up EKG just to check for QT prolongation after levoflox -Cont rest of plan per primary team Goals of care discussed with the mother at bedside for >35min, FULL CODE Plan discussed with Dr. Velasco -------- Assessment Dr. Edgard Velasco Patient is a 49 year old male with a past medical history of a traumatic brain injusry on 09/11/2013 . endocarditis , ceder disorder and trach , was brought in with labored breathing a fever . hes had recurrent hospitalizations , was [facility] a [facility] when he started to have labored breathing . febrile episode . He was recently discharged home but was not getting additional care . patient was starting to require supplemental oxygen and got up to 8-10 liters through trach tube . whitecount is 17.2 . trach cultures grew astonita bacterbomie in the past , pseudomonas . patient has a lumbar puncture done . concern for altered mental status and has a rash after dose of vancomycin and zosyn . History of cranial surgery with ventricular peritoneal shunt. Patient currently has SOB , responding to simple questions but otherwise nonverbal however this is his baseline . has a rash . chest xray showed low lung volumes with possible bibasilar atelectasis. low overall suspicion for meningitis at this time 11/13: rash has significantly improved , still elevated whitecount of 17.2 and on 8 liters trach collar . patient does not use oxygen at home per . growing pseudomonas and group g strep on respiratory cultures 11/17: on 8 liters trach collar . planned for bedside bronchoscopy , respiratory cultures are finalizing . CSF PCR herpes are negative . mentation and breathing has significantly improved . rash has resolved 11/18: awaiting broncoscopy procedure . cultures have finalized without growth . Plan : - empirically cover for MRSA until cultures are finalized - continue vancomycin and levofloxacin - less likely thierry syndrome Agree with subjective , assessment , plan as written above execpt as noted by Dr. Cutler Plan discussed with: Other Dietary Evaluation Review Comments: Nutrition recommendation 1) TF Jevity 1.2Cal @ 60ml/hr. Start @ 20ml/hr, increase 10ml/hr Q4H until goal is reached. TF @ goal volume provides 1728 kcal (100% energy needs), 80gm protein (100% protein needs), 1162ml free water. 2) Water flush 100ml Q4H 3) Monitor NPO status, TF tolerance, lab values, wt trend, I/O Expected Outcomes/Goals: To meet >75% estimated needs Fu 2-3 days CHELSEA MARTIN RESIDENT Nov 18, 2024 11:33 EDGARD VELASCO MD Nov 29, 2024 18:41
--- NOTE | 2024-11-18 12:39 | DVHPN2 ---
Progress Note - Dictate Date Seen: Nov 18, 2024 Has the PT tested + for MRSA If YES, has PT been informed?: No Medical Necessity Reason Pt with a Central, PICC or Fol: No vital signs Vital Sign Date Time Temp Pulse Resp B/P (MAP) Pulse Ox O2 Delivery O2 Flow Rate FiO2 11/18/24 12:04 80 16 99 11/18/24 11:57 Trach Collar 6.0 11/18/24 11:57 30 30 11/18/24 09:00 97.9 134/63 (86) 97.9 Total Intake and Output 11/17/24 11/17/24 11/18/24 15:00 23:00 07:00 Intake Total 0 ml 622 ml Output Total 2050 ml 790 ml Balance -2050 ml -168 ml medications Current Medications Medications Dose Ordered Sig/Ata Route Start Time Stop Time Status Last Admin Dose Admin Levetiracetam 1,000 mg BID GT 11/09/24 22:00 11/18/24 09:21 1,000 MG Pantoprazole Sodium 40 mg DAILY IV 11/10/24 10:00 11/18/24 09:23 40 MG Acetaminophen 650 mg Q6HP PRN GT 11/09/24 21:30 11/12/24 03:32 650 MG Vancomycin HCl 0 ml @ 0 mls/hr UD IV 11/09/24 21:30 Levalbuterol HCl 0.625 mg Q6HR NEB 11/10/24 00:00 11/18/24 11:56 0.625 MG Ipratropium [place] 0.5 mg Q6HR NEB 11/10/24 00:00 11/18/24 11:56 0.5 MG Acetylcysteine 200 mg Q6HR NEB 11/10/24 00:00 11/18/24 11:56 200 MG Lacosamide 150 mg BID GT 11/10/24 10:00 11/18/24 09:23 150 MG Enteral Nutritional Formula 1,000 ml 30ML/HR GT 11/10/24 09:30 11/17/24 22:16 1,000 ML Lorazepam 1 mg Q5MINP PRN IV 11/10/24 15:30 11/11/24 13:53 1 MG Dexamethasone Sodium Phosphate 10 mg Q6HR IV 11/12/24 12:00 11/18/24 11:54 10 MG Baclofen 20 mg Q6HR PO 11/16/24 07:00 11/18/24 11:53 20 MG Vancomycin HCl 200 ml @ 200 mls/hr Q8H IV 11/17/24 17:00 11/18/24 09:22 200 MLS/HR Levofloxacin/ Dextrose 150 ml @ 100 mls/hr DAILY IV 11/18/24 10:00 11/18/24 10:33 100 MLS/HR laboratory and microbiology Laboratory Tests 11/17/24 06:12 Test 11/17/24 06:12 Range/Units Serum Glucose 124 H 74-106 mg/dL Assessment/Plan Impression Acute hypoxemic respiratory failure Chronic tracheostomy Pneumonia Atelectasis Hx of TBI Patient seen and examined Events On 6 liters, no distress Sputum culture growing pseudomonas aeruginosa Followed by ID Labs and imaging reviewed Management Supplemental oxygen Titrate to maintain sats 90% or above Trach care per RT protocols Incentive spirometry Continue antibiotics F/u cultures and ID Bronchodilators Monitor renal function Monitor electrolytes Supplement as needed Will plan for bronchoscopy for pulmonary toilet Planned for tomorrow DVT prophylaxis Dietary Evaluation Review Comments: Nutrition recommendation 1) TF Jevity 1.2Cal @ 60ml/hr. Start @ 20ml/hr, increase 10ml/hr Q4H until goal is reached. TF @ goal volume provides 1728 kcal (100% energy needs), 80gm protein (100% protein needs), 1162ml free water. 2) Water flush 100ml Q4H 3) Monitor NPO status, TF tolerance, lab values, wt trend, I/O Expected Outcomes/Goals: To meet >75% estimated needs Fu 2-3 days Plan discussed with: Patient Date of Service: Nov 18, 2024 Billing Provider: SCOTT MCLEOD MD Common Visit Codes: NOT BILLABLE SCOTT MCLEOD MD Nov 18, 2024 12:39
--- NOTE | 2024-11-18 14:12 | ECG ---
[facility] Test Date: 2024-11-11 Test Time: 14:21:02 Pat Name: DOMINIC MELENDEZ Department: ED Room: 0289T B Gender: M Voice Over Artist: ED : 1975 Requested By: BRIANNA CORTES Order Number: [id number] Reading MD: Shahid Noriega Measurements Intervals Froid Rate: 45 P: 255 DC: 180 QRS: 82 QRSD: 132 T: 196 QT: 471 QTc: 408 Interpretive Statements Ventricular-paced complexes No further analysis attempted due to paced rhythm Electronically Signed On 11-18-2024 22:23:56 PDT by Shahid Noriega Please click the below link to view image of tracing.
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
[2024-11-18] MEDS: VANCOMYCIN 1GM/200ML PM 200 ML IV SCH (22:57)
--- NOTE | 2024-11-18 23:38 | DVHPN2 ---
Progress Note - Dictate Date Seen: Nov 18, 2024 Has the PT tested + for MRSA If YES, has PT been informed?: No Medical Necessity Reason Pt with a Central, PICC or Fol: No Subjective Mr. Molina is a 49 years old gentleman with a history of traumatic brain injury, craniotomy, seizure disorder, he was brought to the [facility] on 11/09/2024 with a chief company of fever, tachycardia, desaturation. I have seen and examined the patient, I have discussed with his nurse and sitter, he is doing fine, socially appropriate, Baclofen is 20 mg q.i.d. CSF profile, 11/12/2024: C/C, WBC: Nine, Nancy: 73, motor 27, protein 57.9, glucose 52 Urinalysis, 11/10/2024: WBC: 2, urine leukocyte esterase: Negative CBC, 11/11/2024: Respiratory alkalosis WBC/HB/PLT/MCV, 11/11/2024: 19.4/16.5/139/90.1 TBI/AST/ALT/AP, 11/10/2024: 1.1/35/59/74 Chest x-ray, 11/11/2024: Cardiomegaly without overt failure Chest x-ray, 11/12/2024: Cardiomegaly with pulmonary congestion and edema. Superimposed pneumonia cannot be excluded CT head, 11/10/2024: No intracranial hemorrhage .Right frontal approach ventriculostomy catheter with the ventricles being significantly decompressed. Left frontoparietal encephalomalacia. vital signs Vital Sign Date Time Temp Pulse Resp B/P (MAP) Pulse Ox O2 Delivery O2 Flow Rate FiO2 11/18/24 21:00 97.4 61 17 136/75 (95) 94 97.4 11/18/24 18:28 Trach Collar 6 30 30 Total Intake and Output 11/17/24 11/17/24 11/18/24 15:00 23:00 07:00 Intake Total 0 ml 622 ml Output Total 2050 ml 790 ml Balance -2050 ml -168 ml medications Current Medications Medications Dose Ordered Sig/Ata Route Start Time Stop Time Status Last Admin Dose Admin Levetiracetam 1,000 mg BID GT 11/09/24 22:00 11/18/24 22:43 1,000 MG Pantoprazole Sodium 40 mg DAILY IV 11/10/24 10:00 11/18/24 09:23 40 MG Acetaminophen 650 mg Q6HP PRN GT 11/09/24 21:30 11/12/24 03:32 650 MG Vancomycin HCl 0 ml @ 0 mls/hr UD IV 11/09/24 21:30 Levalbuterol HCl 0.625 mg Q6HR NEB 11/10/24 00:00 11/18/24 18:28 0.625 MG Ipratropium [place] 0.5 mg Q6HR NEB 11/10/24 00:00 11/18/24 18:28 0.5 MG Acetylcysteine 200 mg Q6HR NEB 11/10/24 00:00 11/18/24 18:28 200 MG Lacosamide 150 mg BID GT 11/10/24 10:00 11/18/24 22:46 150 MG Enteral Nutritional Formula 1,000 ml 30ML/HR GT 11/10/24 09:30 11/17/24 22:16 1,000 ML Lorazepam 1 mg Q5MINP PRN IV 11/10/24 15:30 11/11/24 13:53 1 MG Baclofen 20 mg Q6HR PO 11/16/24 07:00 11/18/24 22:47 20 MG Dexamethasone Sodium Phosphate 10 mg BID IV 11/18/24 22:00 11/18/24 22:47 10 MG Levofloxacin/ Dextrose 150 ml @ 100 mls/hr DAILY IV 11/19/24 10:00 Vancomycin HCl 200 ml @ 200 mls/hr Q6H IV 11/18/24 23:00 11/18/24 22:57 200 MLS/HR objective General: the patient is well developed and nourished. No acute distress. MENTAL STATUS: Subjective SPEECH, LANGUAGE, HIGHER CORTICAL FUNCTION: He does not vocalize/status post tracheostomy CRANIAL NERVES: Pupils are equal, round and reactive. EOMs full and conjugate. Facial sensation intact in all three divisions bilaterally. Mandibular strength intact. Facial muscles symmetrical and strength intact. SENSATION: Responsive to touch stimuli MOTOR: Increased tone in the upper and lower extremity. Diffuse muscle atrophy. No fasciculations. No abnormal movements or posturing. No spontaneous movement in the extremities REFLEXES: Deep tendon reflexes are diffusely increased, with clonus in the upper extremities, bilateral ankles. Upgoing toes in both feet CEREBELLAR/COORDINATION: Deferred GAIT/STATION: deferred. laboratory and microbiology Laboratory Tests 11/17/24 06:12 Test 11/17/24 06:12 Range/Units Serum Glucose 124 H 74-106 mg/dL Problem List Fever, ALOC with elevated WBC, protein Partially treated meningitis Aseptic meningitis Seizure breakthrough, fever, to rule out meningitis Generalized tonic-clonic seizure secondary to traumatic brain injury Chronic traumatic brain injury status post craniotomy, INSIDE OUTSIDE [employer]ENT[employer]IVE shunt ? 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 Keppra 1000 mg b.i.d. Increase baclofen to 20 mg q.i.d. Ativan for seizure breakthrough DVT prophylaxis GI prophylaxis More recommendation per clinical course This medical document was created using an electronic medical record system with [employer] dictation system. Although this document has been carefully reviewed, there may still be some phonetic and typographical errors. These areas are purely typographical due to imperfections of the software programs, and do not reflect any compromise in the patient's medical care. Prognosis poor Dietary Evaluation Review Comments: Nutrition recommendation 1) TF Jevity 1.2Cal @ 60ml/hr. Start @ 20ml/hr, increase 10ml/hr Q4H until goal is reached. TF @ goal volume provides 1728 kcal (100% energy needs), 80gm protein (100% protein needs), 1162ml free water. 2) Water flush 100ml Q4H 3) Monitor NPO status, TF tolerance, lab values, wt trend, I/O Expected Outcomes/Goals: To meet >75% estimated needs Fu 2-3 days Plan discussed with: Other AGNIESZKA ESPINOZA MD Nov 18, 2024 23:38
[2024-11-19] VITALS (17 sets, daily range): BP systolic 118–165; BP diastolic 52–67; PULSE 54–88; RESP 18–22; TEMP 97.8–98.7; O2SAT 94–98
[2024-11-19 06:53] LABS: Hematocrit 47.7 % (41.0-53.0); Hemoglobin 16.0 g/dL (13.5-17.5); Mean Corpuscular Hemoglobin 29.0 pg (28.0-32.0); Mean Corpuscular Volume 86.3 fL (80.0-100.0); Nucleated Red Blood Cells % 0.1 %
[2024-11-19 07:02] LABS: Anion Gap 9 (5-15); Carbon Dioxide 22 mmol/L (20-31); Potassium 3.8 mmol/L (3.5-5.1); Sodium 138 mmol/L (136-145)
[2024-11-19 07:03] LABS: Chloride 107 mmol/L (98-107)
[2024-11-19 07:08] LABS: BUN/Creatinine Ratio 29.5 (10.0-20.0); Blood Urea Nitrogen 13 mg/dL (9-23); Calcium 8.0 mg/dL (8.7-10.4); Glucose 98 mg/dL (74-106)
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
--- NOTE | 2024-11-19 18:27 | DVHPN2 ---
Progress Note - Dictate Date Seen: Nov 19, 2024 Has the PT tested + for MRSA If YES, has PT been informed?: No Medical Necessity Reason Pt with a Central, PICC or Fol: No vital signs Vital Sign Date Time Temp Pulse Resp B/P (MAP) Pulse Ox O2 Delivery O2 Flow Rate FiO2 11/19/24 17:00 97.9 69 18 135/67 (89) 96 97.9 11/19/24 12:05 Trach Collar 8.0 11/19/24 12:05 30 30 Total Intake and Output 11/18/24 11/18/24 11/19/24 15:00 23:00 07:00 Intake Total 400 ml Output Total 900 ml 2100 ml Balance -900 ml -1700 ml medications Current Medications Medications Dose Ordered Sig/Ata Route Start Time Stop Time Status Last Admin Dose Admin Levetiracetam 1,000 mg BID GT 11/09/24 22:00 11/18/24 22:43 1,000 MG Pantoprazole Sodium 40 mg DAILY IV 11/10/24 10:00 11/19/24 10:56 40 MG Acetaminophen 650 mg Q6HP PRN GT 11/09/24 21:30 11/12/24 03:32 650 MG Vancomycin HCl 0 ml @ 0 mls/hr UD IV 11/09/24 21:30 Levalbuterol HCl 0.625 mg Q6HR NEB 11/10/24 00:00 11/19/24 18:21 0.625 MG Ipratropium [place] 0.5 mg Q6HR NEB 11/10/24 00:00 11/19/24 18:21 0.5 MG Acetylcysteine 200 mg Q6HR NEB 11/10/24 00:00 11/19/24 18:21 200 MG Lacosamide 150 mg BID GT 11/10/24 10:00 11/18/24 22:46 150 MG Enteral Nutritional Formula 1,000 ml 30ML/HR GT 11/10/24 09:30 11/17/24 22:16 1,000 ML Lorazepam 1 mg Q5MINP PRN IV 11/10/24 15:30 11/11/24 13:53 1 MG Baclofen 20 mg Q6HR PO 11/16/24 07:00 11/18/24 22:47 20 MG Levofloxacin/ Dextrose 150 ml @ 100 mls/hr DAILY IV 11/19/24 10:00 11/19/24 10:54 100 MLS/HR Vancomycin HCl 200 ml @ 200 mls/hr Q6H IV 11/18/24 23:00 11/19/24 17:44 200 MLS/HR laboratory and microbiology Laboratory Tests 11/19/24 06:23 Test 11/19/24 06:23 Range/Units Serum Glucose 98 74-106 mg/dL Assessment/Plan Impression Acute hypoxemic respiratory failure Chronic tracheostomy Pneumonia Atelectasis Hx of TBI Patient seen and examined Events On 6 liters, no distress Sputum culture growing pseudomonas aeruginosa Followed by ID bronchoscopy re-scheduled Labs and imaging reviewed Management Supplemental oxygen Titrate to maintain sats 90% or above Trach care per RT protocols Incentive spirometry Continue antibiotics F/u cultures and ID Bronchodilators Monitor renal function Monitor electrolytes Supplement as needed DVT prophylaxis Dietary Evaluation Review Comments: Nutrition recommendation 1) TF Jevity 1.2Cal @ 60ml/hr. Start @ 20ml/hr, increase 10ml/hr Q4H until goal is reached. TF @ goal volume provides 1728 kcal (100% energy needs), 80gm protein (100% protein needs), 1162ml free water. 2) Water flush 100ml Q4H 3) Monitor NPO status, TF tolerance, lab values, wt trend, I/O Expected Outcomes/Goals: To meet >75% estimated needs Fu 2-3 days Plan discussed with: Patient SCOTT MCLEOD MD Nov 19, 2024 18:27
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
[2024-11-19] MEDS: Jevity 1.2 Cal/Fiber 1 Liter GT SCH (20:21)
[2024-11-19 23:36] LABS: Urine Protein, UAD 1+ (Negative)
[2024-11-20] VITALS (18 sets, daily range): BP systolic 115–139; BP diastolic 50–74; PULSE 56–80; RESP 15–20; TEMP 97.9–98.7; O2SAT 94–99
--- NOTE | 2024-11-20 03:20 | DVH ---
CHEST RADIOGRAPH Indication: reeval lung parenchyma Technique: Single frontal view of the chest was obtained COMPARISON: XY CHEST XRAY 1 VIEW on DOS: 11/16/24, XY CHEST XRAY 1 VIEW on DOS: 11/15/24, XY CHEST XRAY 1 VIEW on DOS: 11/12/24, XY CHEST XRAY 1 VIEW on DOS: 11/11/24, XY CHEST PORTABLE on DOS: 11/09/24 FINDINGS: Lines and Tubes: Catheter tubing noted once again within the right neck and michael thorax. Lungs: Slight interval improvement in multifocal bilateral pulmonary airspace disease. Small bilater al pleural effusions can not be excluded. Mild right hemidiaphragmatic elevation. No pneumothorax. Cardiomediastinal contours: Unremarkable Bones: Unremarkable IMPRESSION: 1. Mild interval improvement in multifocal bilateral pulmonary airspace disease. 2. Possible small bilateral pleural effusions.
[2024-11-20 06:05] LABS: Hematocrit 47.5 % (41.0-53.0); Hemoglobin 16.0 g/dL (13.5-17.5); Mean Corpuscular Hemoglobin 29.0 pg (28.0-32.0); Mean Corpuscular Volume 86.2 fL (80.0-100.0); Nucleated Red Blood Cells % 0.0 %
[2024-11-20 06:21] LABS: Potassium 3.7 mmol/L (3.5-5.1); Sodium 140 mmol/L (136-145)
[2024-11-20 06:22] LABS: Anion Gap 9 (5-15); Carbon Dioxide 22 mmol/L (20-31)
[2024-11-20 06:27] LABS: Glucose 77 mg/dL (74-106)
[2024-11-20 06:28] LABS: BUN/Creatinine Ratio 31.4 (10.0-20.0); Blood Urea Nitrogen 16 mg/dL (9-23)
[2024-11-20 06:30] LABS: Calcium 8.4 mg/dL (8.7-10.4); Chloride 109 mmol/L (98-107)
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
[2024-11-20] MEDS: BACLOFEN 10 MG TAB GT SCH (12:29)
[2024-11-20] MEDS ORDERED: LIDOCAINE 2%HCL (LOCAL ANESTH.) INJ 20ML MDV ONE (14:19)
[2024-11-20] MEDS ORDERED: diphenhdrAMINE HCL 50 MG/1 ML VL ONE (14:20)
[2024-11-20] MEDS ORDERED: GLYCOPYRROLATE 0.2 MG/ML 1ML VIAL ONE ×2 (14:20→14:24)
[2024-11-20] MEDS ORDERED: LIDOCAINE HCL 2% TOP JELLY 5ML TOP ONE (14:20)
[2024-11-20] MEDS ORDERED: MIDAZOLAM HCL 2MG/2ML 2ml VIAL (1mg/ml) ONE ×2 (14:20→14:25)
[2024-11-20] MEDS ORDERED: fentaNYL CITRATE 100 MCG/2 ML VL ONE (14:21)
[2024-11-20] MEDS ORDERED: NALOXONE HCL 0.4 MG/ML VIAL ONE (14:26)
[2024-11-20] MEDS ORDERED: FLUMAZENIL 0.1 MG/ML INJ 10ML MDV IV ONE (14:27)
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
--- NOTE | 2024-11-20 15:50 | DVHPN2 ---
Progress Note - Dictate Date Seen: Nov 20, 2024 Has the PT tested + for MRSA If YES, has PT been informed?: No Medical Necessity Reason Pt with a Central, PICC or Fol: No vital signs Vital Sign Date Time Temp Pulse Resp B/P (MAP) Pulse Ox O2 Delivery O2 Flow Rate FiO2 11/20/24 14:45 95 T-piece 6.0 11/20/24 14:45 28 28 11/20/24 13:00 98.7 63 16 126/61 (82) 98.7 Total Intake and Output 11/19/24 11/19/24 11/20/24 15:00 23:00 07:00 Intake Total 150 ml 200 ml 400 ml Output Total 200 ml 700 ml Balance 150 ml 0 ml -300 ml medications Current Medications Medications Dose Ordered Sig/Ata Route Start Time Stop Time Status Last Admin Dose Admin Levetiracetam 1,000 mg BID GT 11/09/24 22:00 11/20/24 10:40 1,000 MG Pantoprazole Sodium 40 mg DAILY IV 11/10/24 10:00 11/20/24 10:39 40 MG Acetaminophen 650 mg Q6HP PRN GT 11/09/24 21:30 11/12/24 03:32 650 MG Vancomycin HCl 0 ml @ 0 mls/hr UD IV 11/09/24 21:30 Levalbuterol HCl 0.625 mg Q6HR NEB 11/10/24 00:00 11/20/24 12:08 0.625 MG Ipratropium [place] 0.5 mg Q6HR NEB 11/10/24 00:00 11/20/24 12:08 0.5 MG Acetylcysteine 200 mg Q6HR NEB 11/10/24 00:00 11/20/24 12:08 200 MG Lacosamide 150 mg BID GT 11/10/24 10:00 11/20/24 10:39 150 MG Lorazepam 1 mg Q5MINP PRN IV 11/10/24 15:30 11/11/24 13:53 1 MG Levofloxacin/ Dextrose 150 ml @ 100 mls/hr DAILY IV 11/19/24 10:00 11/20/24 10:38 100 MLS/HR Enteral Nutritional Formula 1,000 ml 30ML/HR GT 11/19/24 18:30 11/19/24 20:21 1,000 ML Baclofen 20 mg Q6HR GT 11/20/24 12:00 11/20/24 12:29 20 MG Vancomycin HCl 200 ml @ 200 mls/hr Q7H IV 11/20/24 18:00 laboratory and microbiology Laboratory Tests 11/20/24 05:35 Test 11/20/24 05:35 Range/Units Serum Glucose 77 74-106 mg/dL Assessment/Plan Impression Acute hypoxemic respiratory failure Chronic tracheostomy Pneumonia Atelectasis Hx of TBI Patient seen and examined Events Patient underwent bronchoscopy today Tolerated procedure well See separate note for procedure in detail Labs and imaging reviewed Management Supplemental oxygen Titrate to maintain sats 90% or above Trach care per RT protocols Incentive spirometry Continue antibiotics F/u cultures and ID Bronchodilators Monitor renal function Monitor electrolytes Supplement as needed DVT prophylaxis Dietary Evaluation Review Comments: Nutrition recommendation 1) TF Jevity 1.2Cal @ 60ml/hr. Start @ 20ml/hr, increase 10ml/hr Q4H until goal is reached. TF @ goal volume provides 1728 kcal (100% energy needs), 80gm protein (100% protein needs), 1162ml free water. 2) Water flush 100ml Q4H 3) Monitor NPO status, TF tolerance, lab values, wt trend, I/O Expected Outcomes/Goals: To meet >75% estimated needs Fu 2-3 days Plan discussed with: SCOTT Coker MD Nov 20, 2024 15:50
[2024-11-20] MEDS ORDERED: SODIUM CHLORIDE LOCK 10 ML ONE (16:36)
[2024-11-20] MEDS: MIDAZOLAM HCL 5 MG/ML-1ML VIAL ONE (16:57)
[2024-11-20] MEDS: fentaNYL CITRATE 100 MCG/2 ML VL ONE (16:57)
[2024-11-20] MEDS: VANCOMYCIN 1GM/200ML PM 200 ML IV SCH (18:00)
--- NOTE | 2024-11-20 20:11 | DVHNC2 ---
Procedure - Procedure- Bronchoscopy and bronchial washings Indication- Secretions Procedure in detail Consent was obtained and timeout performed per protocol. The patient was placed on 100% FiO2 and pre-medicated with Fentanyl 25mcg and Versed 1mg IV push. Olympus bronchoscope was used and passed through the tracheotomy tube, tracheobronchial tree was examined. There were nonpurulent secretions in the bilateral lower lobes that were loosened up with approximately 50 cc of normal saline and thoroughly suctioned into a separate specimen container. There were no endobronchial lesions however, mucosa appeared inflamed and easily friable. After the procedure, the scope was removed. Patient tolerated the procedure well. Sample cent for gram stain and culture. SCOTT MCLEOD MD Nov 20, 2024 20:11
--- NOTE | 2024-11-20 23:28 | DVHPN2 ---
Progress Note - Dictate Date Seen: Nov 20, 2024 Has the PT tested + for MRSA If YES, has PT been informed?: No Medical Necessity Reason Pt with a Central, PICC or Fol: No Subjective Mr. Molina is a 49 years old gentleman with a history of traumatic brain injury, craniotomy, seizure disorder, he was brought to the [facility] on 11/09/2024 with a chief company of fever, tachycardia, desaturation. I have seen and examined the patient, I have discussed with his nurse and sitter, doing fine, socially appropriate, no new issues CSF profile, 11/12/2024: C/C, WBC: Nine, Nancy: 73, motor 27, protein 57.9, glucose 52 Urinalysis, 11/10/2024: WBC: 2, urine leukocyte esterase: Negative CBC, 11/11/2024: Respiratory alkalosis WBC/HB/PLT/MCV, 11/11/2024: 19.4/16.5/139/90.1 TBI/AST/ALT/AP, 11/10/2024: 1.1/35/59/74 Chest x-ray, 11/11/2024: Cardiomegaly without overt failure Chest x-ray, 11/12/2024: Cardiomegaly with pulmonary congestion and edema. Superimposed pneumonia cannot be excluded CT head, 11/10/2024: No intracranial hemorrhage .Right frontal approach ventriculostomy catheter with the ventricles being significantly decompressed. Left frontoparietal encephalomalacia. vital signs Vital Sign Date Time Temp Pulse Resp B/P (MAP) Pulse Ox O2 Delivery O2 Flow Rate FiO2 11/20/24 21:00 97.9 62 19 122/50 (74) 96 97.9 11/20/24 20:00 T-piece 5 30 30 Total Intake and Output 11/19/24 11/19/24 11/20/24 15:00 23:00 07:00 Intake Total 150 ml 200 ml 400 ml Output Total 200 ml 700 ml Balance 150 ml 0 ml -300 ml medications Current Medications Medications Dose Ordered Sig/Ata Route Start Time Stop Time Status Last Admin Dose Admin Levetiracetam 1,000 mg BID GT 11/09/24 22:00 11/20/24 21:52 1,000 MG Pantoprazole Sodium 40 mg DAILY IV 11/10/24 10:00 11/20/24 10:39 40 MG Acetaminophen 650 mg Q6HP PRN GT 11/09/24 21:30 11/12/24 03:32 650 MG Vancomycin HCl 0 ml @ 0 mls/hr UD IV 11/09/24 21:30 Levalbuterol HCl 0.625 mg Q6HR NEB 11/10/24 00:00 11/20/24 18:11 0.625 MG Ipratropium [place] 0.5 mg Q6HR NEB 11/10/24 00:00 11/20/24 18:11 0.5 MG Acetylcysteine 200 mg Q6HR NEB 11/10/24 00:00 11/20/24 18:11 200 MG Lacosamide 150 mg BID GT 11/10/24 10:00 11/20/24 21:53 150 MG Lorazepam 1 mg Q5MINP PRN IV 11/10/24 15:30 11/11/24 13:53 1 MG Levofloxacin/ Dextrose 150 ml @ 100 mls/hr DAILY IV 11/19/24 10:00 11/20/24 10:38 100 MLS/HR Enteral Nutritional Formula 1,000 ml 30ML/HR GT 11/19/24 18:30 11/19/24 20:21 1,000 ML Baclofen 20 mg Q6HR GT 11/20/24 12:00 11/20/24 18:00 20 MG Vancomycin HCl 200 ml @ 200 mls/hr Q7H IV 11/20/24 18:00 11/20/24 18:00 200 MLS/HR objective General: the patient is well developed and nourished. No acute distress. MENTAL STATUS: Subjective SPEECH, LANGUAGE, HIGHER CORTICAL FUNCTION: He does not vocalize/status post tracheostomy CRANIAL NERVES: Pupils are equal, round and reactive. EOMs full and conjugate. Facial sensation intact in all three divisions bilaterally. Mandibular strength intact. Facial muscles symmetrical and strength intact. SENSATION: Responsive to touch stimuli MOTOR: Increased tone in the upper and lower extremity. Diffuse muscle atrophy. No fasciculations. No abnormal movements or posturing. No spontaneous movement in the extremities REFLEXES: Deep tendon reflexes are diffusely increased, with clonus in the upper extremities, bilateral ankles. Upgoing toes in both feet CEREBELLAR/COORDINATION: Deferred GAIT/STATION: deferred. laboratory and microbiology Laboratory Tests 11/20/24 05:35 Test 11/20/24 05:35 Range/Units Serum Glucose 77 74-106 mg/dL Problem List Fever, ALOC with elevated WBC, protein Partially treated meningitis Aseptic meningitis Seizure breakthrough, fever, to rule out meningitis Generalized tonic-clonic seizure secondary to traumatic brain injury Chronic traumatic brain injury status post craniotomy, SHRIMP PICKER shunt ? 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 Keppra 1000 mg b.i.d. Increase baclofen to 20 mg q.i.d. Ativan for seizure breakthrough DVT prophylaxis GI prophylaxis More recommendation per clinical course This medical document was created using an electronic medical record system with [employer] dictation system. Although this document has been carefully reviewed, there may still be some phonetic and typographical errors. These areas are purely typographical due to imperfections of the software programs, and do not reflect any compromise in the patient's medical care. Prognosis poor Dietary Evaluation Review Comments: Nutrition recommendation 1) TF Jevity 1.2Cal @ 60ml/hr. Start @ 20ml/hr, increase 10ml/hr Q4H until goal is reached. TF @ goal volume provides 1728 kcal (100% energy needs), 80gm protein (100% protein needs), 1162ml free water. 2) Water flush 100ml Q4H 3) Monitor NPO status, TF tolerance, lab values, wt trend, I/O Expected Outcomes/Goals: To meet >75% estimated needs Fu 2-3 days Plan discussed with: Other GANIESZKA ESPINOZA MD Nov 20, 2024 23:28
[2024-11-21] VITALS (18 sets, daily range): BP systolic 108–120; BP diastolic 45–73; PULSE 62–87; RESP 16–20; TEMP 97.6–98.7; O2SAT 94–99
[2024-11-21 07:50] LABS: Alanine Aminotransferase 67 U/L (7-40); Albumin 3.4 g/dL (3.2-4.8); Alkaline Phosphatase 61 U/L (46-116); Anion Gap 9 (5-15); BUN/Creatinine Ratio 19.4 (10.0-20.0); Bilirubin, Total 0.8 mg/dL (0.2-1.0); Blood Urea Nitrogen 12 mg/dL (9-23); Calcium 8.4 mg/dL (8.7-10.4); Carbon Dioxide 21 mmol/L (20-31); Chloride 109 mmol/L (98-107); Glucose 91 mg/dL (74-106); Potassium 4.7 mmol/L (3.5-5.1); Sodium 139 mmol/L (136-145); Total Protein 5.8 g/dL (5.7-8.2)
[2024-11-21 09:12] LABS: Hematocrit 48.0 % (41.0-53.0); Hemoglobin 15.9 g/dL (13.5-17.5); Mean Corpuscular Hemoglobin 29.1 pg (28.0-32.0); Mean Corpuscular Volume 87.8 fL (80.0-100.0); Nucleated Red Blood Cells % 0.1 %
--- NOTE | 2024-11-21 09:55 | DVH ---
EXAM: XY CHEST XRAY 1 VIEW Indication: pneumonia; pain Technique: Single frontal view of the chest was obtained Comparison: XY CHEST XRAY 1 VIEW on DOS: 11/20/24, XY CHEST XRAY 1 VIEW on DOS: 11/16/24, XY CHEST XRAY 1 VIEW on DOS: 11/15/24, XY CHEST XRAY 1 VIEW on DOS: 11/12/24, XY CHEST XRAY 1 VIEW on DOS: 11/11/24 FINDINGS: Lines and Tubes: None Lungs: Bibasilar opacities Pleura: No effusion. No pneumothorax. Cardiomediastinal contours: Cardiomegaly. Bones: No acute osseous abnormality. IMPRESSION: No significant change compared to prior exam.
--- NOTE | 2024-11-21 11:27 | DVHPNRES ---
Progress Note Date Seen: Nov 21, 2024 Resident Creating Document: CHELSEA MARTIN RESIDENT Has the PT tested + for MRSA If YES, has PT been informed?: No Medical Necessity Reason Pt with a Central, PICC or Fol: No Subjective Review of Systems Patient seen and examined at bedside. No family members at bedside at this time. Bronchoscopy was performed yesterday and bilateral lower lobes were washed without any evidence of mucus plugs or severe apparent disease. Wash outs were sent for microbiology and culture. WBC today went down. Respiratory cultures are currently growing Pseudomonas and strep group G which are currently covered by levofloxacin and vancomycin. We will wait for bronch cultures to have more specific detail about possible microorganism. Patient still at 6 L of oxygen through the trach tube without being able to decrease oxygen supplementation and is currently the main concern at this time. ROS unable to obtain due to patient's status. Objective vital signs Vital Sign Date Time Temp Pulse Resp B/P (MAP) Pulse Ox O2 Delivery O2 Flow Rate FiO2 11/21/24 09:00 97.6 65 16 115/61 (79) 99 97.6 11/21/24 08:00 T-piece 6 30 30 Total Intake and Output 11/20/24 11/20/24 11/21/24 15:00 23:00 07:00 Intake Total 200 ml 200 ml Output Total 850 ml 3500 ml Balance -650 ml -3300 ml medications Current Medications Medications Dose Ordered Sig/Ata Route Start Time Stop Time Status Last Admin Dose Admin Levetiracetam 1,000 mg BID GT 11/09/24 22:00 11/21/24 11:08 1,000 MG Pantoprazole Sodium 40 mg DAILY IV 11/10/24 10:00 11/21/24 11:08 40 MG Acetaminophen 650 mg Q6HP PRN GT 11/09/24 21:30 11/12/24 03:32 650 MG Vancomycin HCl 0 ml @ 0 mls/hr UD IV 11/09/24 21:30 Levalbuterol HCl 0.625 mg Q6HR NEB 11/10/24 00:00 11/21/24 06:43 0.625 MG Ipratropium [place] 0.5 mg Q6HR NEB 11/10/24 00:00 11/21/24 06:43 0.5 MG Acetylcysteine 200 mg Q6HR NEB 11/10/24 00:00 11/21/24 06:43 200 MG Lacosamide 150 mg BID GT 11/10/24 10:00 11/21/24 11:08 150 MG Lorazepam 1 mg Q5MINP PRN IV 11/10/24 15:30 11/11/24 13:53 1 MG Enteral Nutritional Formula 1,000 ml 30ML/HR GT 11/19/24 18:30 11/19/24 20:21 1,000 ML Baclofen 20 mg Q6HR GT 11/20/24 12:00 11/21/24 05:49 20 MG Vancomycin HCl 200 ml @ 200 mls/hr Q7H IV 11/20/24 18:00 11/21/24 09:10 200 MLS/HR Meropenem 50 ml @ 17 mls/hr Q8HR IV 11/21/24 14:00 Examination Physical Examination General: 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 HEENT: Normocephalic, atraumatic, moist mucous membranes Respiratory/pulmonary: Patient has tracheostomy tube in place currently at 8 L of oxygen through the tracheal tube. There are bilateral secretion sounds on both lung mayo. Cardiovascular: Irregular heart sounds S1 and S2 with no associated murmurs Abdomen: Abdomen nondistended, there is no pain to palpation in any of the abdominal quadrants, no palpable masses. There is a G-tube Extremities: No significant peripheral edema at this time. Skin: No rashes at this time. Neurological: Quadraplegic, nonverbal laboratory and microbiology Laboratory Tests 11/21/24 08:56 11/21/24 07:11 Test 11/21/24 07:11 Range/Units Serum Glucose 91 74-106 mg/dL Microbiology Date/Time Source Procedure Growth Status 11/20/24 16:55 Bronchial Washings Gram Stain Pending Resulted 11/20/24 16:55 Bronchial Washings Respiratory Culture - Preliminary Resulted 11/12/24 12:55 Cerebral Spinal Fluid Gram Stain - Final Complete 11/12/24 12:55 Cerebral Spinal Fluid CSF Culture & Gram Stain (Tube 2) M - Final Complete 11/11/24 08:08 Nose MRSA Screen - Final Complete 11/10/24 12:10 Voided Urine Urine Culture - Final Complete 11/09/24 22:14 Blood Blood Culture - Final NO GROWTH AFTER 5 DAYS OF INCUBATION. 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 -lumbar puncture was performed today which showed WBC 9, RBC 84, protein 57.8, glucose 52. -CSF gram stain and cultures showing no growth after 5 days of incubation -chest x-ray performed today showed more opacities/congestion in the right lung base. -Currently requiring 6L of O2 through trach tube -Continue IV vancomycin -Continue IV levofloxacin -bronchoscopy was performed yesterday with bilateral lower lobes washings without evidence of disease. Specimens were sent for cultures which are growing gram negative rods -Vancoomycin and levofloxacin were stopped and IV meropenem was started. Agree with plan since gram - rods are still growing and it could be ESBL or a gram - resistant to levofloxacin -Cont rest of plan per primary team Goals of care discussed with the mother at bedside for >35min, FULL CODE Plan discussed with Dr. Velasco -------- Assessment Dr. Edgard Velasco Patient is a 49 year old male with a past medical history of a traumatic brain injusry on 09/11/2013 . endocarditis , ceder disorder and trach , was brought in with labored breathing a fever . hes had recurrent hospitalizations , was at a half-way when he started to have labored breathing . febrile episode . He was recently discharged home but was not getting additional care . patient was starting to require supplemental oxygen and got up to 8-10 liters through trach tube . whitecount is 17.2 . trach cultures grew astonita bacterbomie in the past , pseudomonas . patient has a lumbar puncture done . concern for altered mental status and has a rash after dose of vancomycin and zosyn . History of cranial surgery with ventricular peritoneal shunt. Patient currently has SOB , responding to simple questions but otherwise nonverbal however this is his baseline . has a rash . chest xray showed low lung volumes with possible bibasilar atelectasis. low overall suspicion for meningitis at this time 11/13: rash has significantly improved , still elevated whitecount of 17.2 and on 8 liters trach collar . patient does not use oxygen at home per . growing pseudomonas and group g strep on respiratory cultures 11/17: on 8 liters trach collar . planned for bedside bronchoscopy , respiratory cultures are finalizing . CSF PCR herpes are negative . mentation and breathing has significantly improved . rash has resolved 11/18: awaiting bronchoscopy procedure . cultures have finalized without growth . 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 whitecount is 19.3 11/20: S/P bronchoscopy and found no prelant secretions in bilateral lower lobes loosened up . no endobronchial lesions , inflamed and easily friable . samples sent for gram stain and culture . has shown mild opacities bilaterally but no clear consolidations 11/21: no increased sputum production after bronch , 8 liters trach collar , whitecount is slowly coming down Plan : - consider diuresis - f/u on gram stain and culture - check EKG to see if patients has developed any QTC prolongation - empirically cover for MRSA until cultures are finalized - continue vancomycin and levofloxacin - less likely thierry syndrome Agree with subjective , assessment , plan as written above execpt as noted by Dr. Cutler Plan discussed with: Other Dietary Evaluation Review Comments: Nutrition recommendation 1) TF Jevity 1.2Cal @ 60ml/hr. Start @ 20ml/hr, increase 10ml/hr Q4H until goal is reached. TF @ goal volume provides 1728 kcal (100% energy needs), 80gm protein (100% protein needs), 1162ml free water. 2) Water flush 100ml Q4H 3) Monitor NPO status, TF tolerance, lab values, wt trend, I/O Expected Outcomes/Goals: To meet >75% estimated needs Fu 2-3 days CHELSEA MARTIN RESIDENT Nov 21, 2024 11:27 EDGARD VELASCO MD Nov 29, 2024 18:49
--- NOTE | 2024-11-21 14:04 | DVHPN2 ---
Progress Note - Dictate Date Seen: Nov 21, 2024 Has the PT tested + for MRSA If YES, has PT been informed?: No Medical Necessity Reason Pt with a Central, PICC or Fol: No vital signs Vital Sign Date Time Temp Pulse Resp B/P (MAP) Pulse Ox O2 Delivery O2 Flow Rate FiO2 11/21/24 13:03 96 Trach Collar 6.0 11/21/24 13:03 65 20 11/21/24 13:03 28 28 11/21/24 13:00 97.7 120/73 (89) 97.7 Total Intake and Output 11/20/24 11/20/24 11/21/24 15:00 23:00 07:00 Intake Total 200 ml 200 ml Output Total 850 ml 3500 ml Balance -650 ml -3300 ml medications Current Medications Medications Dose Ordered Sig/Ata Route Start Time Stop Time Status Last Admin Dose Admin Levetiracetam 1,000 mg BID GT 11/09/24 22:00 11/21/24 11:08 1,000 MG Pantoprazole Sodium 40 mg DAILY IV 11/10/24 10:00 11/21/24 11:08 40 MG Acetaminophen 650 mg Q6HP PRN GT 11/09/24 21:30 11/12/24 03:32 650 MG Vancomycin HCl 0 ml @ 0 mls/hr UD IV 11/09/24 21:30 Levalbuterol HCl 0.625 mg Q6HR NEB 11/10/24 00:00 11/21/24 13:03 0.625 MG Ipratropium [place] 0.5 mg Q6HR NEB 11/10/24 00:00 11/21/24 13:03 0.5 MG Acetylcysteine 200 mg Q6HR NEB 11/10/24 00:00 11/21/24 13:03 200 MG Lacosamide 150 mg BID GT 11/10/24 10:00 11/21/24 11:08 150 MG Lorazepam 1 mg Q5MINP PRN IV 11/10/24 15:30 11/11/24 13:53 1 MG Enteral Nutritional Formula 1,000 ml 30ML/HR GT 11/19/24 18:30 11/19/24 20:21 1,000 ML Baclofen 20 mg Q6HR GT 11/20/24 12:00 11/21/24 12:01 20 MG Vancomycin HCl 200 ml @ 200 mls/hr Q7H IV 11/20/24 18:00 11/21/24 09:10 200 MLS/HR Meropenem 50 ml @ 17 mls/hr Q8HR IV 11/21/24 14:00 laboratory and microbiology Laboratory Tests 11/21/24 08:56 11/21/24 07:11 Test 11/21/24 07:11 Range/Units Serum Glucose 91 74-106 mg/dL Assessment/Plan Impression Acute hypoxemic respiratory failure Chronic tracheostomy Pneumonia Atelectasis Hx of TBI Patient seen and examined Events s/p bronch better Labs and imaging reviewed Management Supplemental oxygen Titrate to maintain sats 90% or above Trach care per RT protocols Incentive spirometry Continue antibiotics F/u cultures and ID Bronchodilators Monitor renal function Monitor electrolytes Supplement as needed DVT prophylaxis dc per primary Dietary Evaluation Review Comments: Nutrition recommendation 1) TF Jevity 1.2Cal @ 60ml/hr. Start @ 20ml/hr, increase 10ml/hr Q4H until goal is reached. TF @ goal volume provides 1728 kcal (100% energy needs), 80gm protein (100% protein needs), 1162ml free water. 2) Water flush 100ml Q4H 3) Monitor NPO status, TF tolerance, lab values, wt trend, I/O Expected Outcomes/Goals: To meet >75% estimated needs Fu 2-3 days Plan discussed with: Other (rn) SCOTT MCLEOD MD Nov 21, 2024 14:04
[2024-11-21] MEDS: MEROPENEM 1GM IVPB 50 ML IV SCH (14:28)
[2024-11-21 16:09] LABS: Base Excess -2.1 mmol/L (-2.0-3.0)
[2024-11-21] MEDS: methylPREDNISolone SOD SUCC 40 MG/ML VL IV SCH (17:20)
[2024-11-21] MEDS ORDERED: VANCOMYCIN 1GM/250ML KIT 250 ML IV SCH (18:30)
[2024-11-21] MEDS: VANCOMYCIN 1GM/250ML KIT 250 ML IV SCH (18:55)
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
[2024-11-22] VITALS (18 sets, daily range): BP systolic 97–118; BP diastolic 45–62; PULSE 57–84; RESP 16–20; TEMP 97.7–99.1; O2SAT 93–97
[2024-11-22 05:12] LABS: Hematocrit 45.0 % (41.0-53.0); Hemoglobin 14.9 g/dL (13.5-17.5); Mean Corpuscular Hemoglobin 28.7 pg (28.0-32.0); Mean Corpuscular Volume 86.7 fL (80.0-100.0); Nucleated Red Blood Cells % 0.0 %
[2024-11-22 05:35] LABS: Alkaline Phosphatase 64 U/L (46-116); Anion Gap 8 (5-15); BUN/Creatinine Ratio 23.3 (10.0-20.0); Bilirubin, Total 0.7 mg/dL (0.2-1.0); Blood Urea Nitrogen 10 mg/dL (9-23); Carbon Dioxide 25 mmol/L (20-31); Potassium 4.1 mmol/L (3.5-5.1); Sodium 141 mmol/L (136-145)
[2024-11-22 05:38] LABS: Alanine Aminotransferase 60 U/L (7-40); Albumin 3.1 g/dL (3.2-4.8); Calcium 7.9 mg/dL (8.7-10.4); Chloride 108 mmol/L (98-107); Glucose 117 mg/dL (74-106); Total Protein 5.4 g/dL (5.7-8.2)
--- NOTE | 2024-11-22 05:46 | DVH ---
CHEST RADIOGRAPH Indication: pneumonia Technique: Single frontal view of the chest was obtained COMPARISON: XY CHEST XRAY 1 VIEW on DOS: 11/21/24, XY CHEST XRAY 1 VIEW on DOS: 11/20/24, XY CHEST XRAY 1 VIEW on DOS: 11/16/24, XY CHEST XRAY 1 VIEW on DOS: 11/15/24, XY CHEST XRAY 1 VIEW on DOS: 11/12/24 FINDINGS: Lines and Tubes: STE[employer] FILLING shunt. Lungs: Diminished lung volumes. Minimal bibasilar airspace disease without evidence of focal consolid ation. Pleura: No effusion. No pneumothorax. Cardiomediastinal contours: Unremarkable Bones: Unremarkable IMPRESSION: 1. Minimal bibasilar airspace disease and diminished lung volumes.
[2024-11-22 09:00] LABS: Base Excess 1.4 mmol/L (-2.0-3.0)
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
[2024-11-22] MEDS: ENOXAPARIN SOD 40 MG/0.4 ML SYRINGE SC SCH (18:16)
--- NOTE | 2024-11-22 21:17 | DVHPN2 ---
Progress Note - Dictate Date Seen: Nov 22, 2024 Has the PT tested + for MRSA If YES, has PT been informed?: No Medical Necessity Reason Pt with a Central, PICC or Fol: No Subjective Mr. Molina is a 49 years old gentleman with a history of traumatic brain injury, craniotomy, seizure disorder, he was brought to the [facility] on 11/09/2024 with a chief company of fever, tachycardia, desaturation. I have seen and examined the patient, I have discussed with his nurse and sitter, has been, he is doing fine, socially appropriate, respond to verbal stimuli No new trouble CSF profile, 11/12/2024: C/C, WBC: Nine, Nancy: 73, motor 27, protein 57.9, glucose 52 Urinalysis, 11/10/2024: WBC: 2, urine leukocyte esterase: Negative CBC, 11/11/2024: Respiratory alkalosis WBC/HB/PLT/MCV, 11/11/2024: 19.4/16.5/139/90.1 TBI/AST/ALT/AP, 11/10/2024: 1.1/35/59/74 Chest x-ray, 11/11/2024: Cardiomegaly without overt failure Chest x-ray, 11/12/2024: Cardiomegaly with pulmonary congestion and edema. Superimposed pneumonia cannot be excluded CT head, 11/10/2024: No intracranial hemorrhage .Right frontal approach ventriculostomy catheter with the ventricles being significantly decompressed. Left frontoparietal encephalomalacia. vital signs Vital Sign Date Time Temp Pulse Resp B/P (MAP) Pulse Ox O2 Delivery O2 Flow Rate FiO2 11/22/24 20:00 18 95 T-piece 5 30 30 11/22/24 19:08 75 11/22/24 17:00 98.8 118/58 (78) 98.8 Total Intake and Output 11/21/24 11/21/24 11/22/24 15:00 23:00 07:00 Intake Total 220 ml 50 ml 300 ml Output Total 1150 ml 1000 ml Balance 220 ml -1100 ml -700 ml medications Current Medications Medications Dose Ordered Sig/Ata Route Start Time Stop Time Status Last Admin Dose Admin Levetiracetam 1,000 mg BID GT 11/09/24 22:00 11/22/24 10:42 1,000 MG Pantoprazole Sodium 40 mg DAILY IV 11/10/24 10:00 11/22/24 10:43 40 MG Acetaminophen 650 mg Q6HP PRN GT 11/09/24 21:30 11/12/24 03:32 650 MG Vancomycin HCl 0 ml @ 0 mls/hr UD IV 11/09/24 21:30 Levalbuterol HCl 0.625 mg Q6HR NEB 11/10/24 00:00 11/22/24 18:51 0.625 MG Ipratropium [place] 0.5 mg Q6HR NEB 11/10/24 00:00 11/22/24 18:52 0.5 MG Acetylcysteine 200 mg Q6HR NEB 11/10/24 00:00 11/22/24 18:51 200 MG Lacosamide 150 mg BID GT 11/10/24 10:00 11/22/24 10:43 150 MG Lorazepam 1 mg Q5MINP PRN IV 11/10/24 15:30 11/11/24 13:53 1 MG Enteral Nutritional Formula 1,000 ml 30ML/HR GT 11/19/24 18:30 11/19/24 20:21 1,000 ML Baclofen 20 mg Q6HR GT 11/20/24 12:00 11/22/24 18:15 20 MG Meropenem 50 ml @ 17 mls/hr Q8HR IV 11/21/24 14:00 11/22/24 13:34 17 MLS/HR Methylprednisolone Sodium Succinate 40 mg DAILY IV 11/21/24 16:30 11/22/24 10:43 40 MG Vancomycin HCl 250 ml @ 250 mls/hr Q8H IV 11/21/24 19:00 11/22/24 10:43 250 MLS/HR Enoxaparin Sodium 40 mg DAILY SC 11/22/24 16:00 11/22/24 18:16 40 MG objective General: the patient is well developed and nourished. No acute distress. MENTAL STATUS: Subjective SPEECH, LANGUAGE, HIGHER CORTICAL FUNCTION: He does not vocalize/status post tracheostomy CRANIAL NERVES: Pupils are equal, round and reactive. EOMs full and conjugate. Facial sensation intact in all three divisions bilaterally. Mandibular strength intact. Facial muscles symmetrical and strength intact. SENSATION: Responsive to touch stimuli MOTOR: Increased tone in the upper and lower extremity. Diffuse muscle atrophy. No fasciculations. No abnormal movements or posturing. No spontaneous movement in the extremities REFLEXES: Deep tendon reflexes are diffusely increased, with clonus in the upper extremities, bilateral ankles. Upgoing toes in both feet CEREBELLAR/COORDINATION: Deferred GAIT/STATION: deferred. 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 Keppra 1000 mg b.i.d. Increase baclofen to 20 mg q.i.d. Ativan for seizure breakthrough DVT prophylaxis GI prophylaxis More recommendation per clinical course This medical document was created using an electronic medical record system with [employer] dictation system. Although this document has been carefully reviewed, there may still be some phonetic and typographical errors. These areas are purely typographical due to imperfections of the software programs, and do not reflect any compromise in the patient's medical care. Prognosis poor Dietary Evaluation Review Comments: Nutrition recommendation 1) TF Jevity 1.2Cal @ 60ml/hr. Start @ 20ml/hr, increase 10ml/hr Q4H until goal is reached. TF @ goal volume provides 1728 kcal (100% energy needs), 80gm protein (100% protein needs), 1162ml free water. 2) Water flush 100ml Q4H 3) Monitor NPO status, TF tolerance, lab values, wt trend, I/O Expected Outcomes/Goals: To meet >75% estimated needs Fu 2-3 days Plan discussed with: Other AGNIESZKA ESPINOZA MD Nov 22, 2024 21:16
[2024-11-22] MEDS: VANCOMYCIN 1GM/200ML PM 200 ML IV ONE (21:50)
--- NOTE | 2024-11-22 23:05 | DVHPN2 ---
Progress Note - Dictate Date Seen: Nov 22, 2024 Has the PT tested + for MRSA If YES, has PT been informed?: No Medical Necessity Reason Pt with a Central, PICC or Fol: No Subjective Patient seen and examined at bedside. Remains on supplemental oxygen via trach Overnight events reviewed vital signs Vital Sign Date Time Temp Pulse Resp B/P (MAP) Pulse Ox O2 Delivery O2 Flow Rate FiO2 11/22/24 21:00 97.7 60 16 113/47 (69) 93 97.7 11/22/24 20:00 T-piece 5 30 30 Total Intake and Output 11/21/24 11/21/24 11/22/24 15:00 23:00 07:00 Intake Total 220 ml 50 ml 300 ml Output Total 1150 ml 1000 ml Balance 220 ml -1100 ml -700 ml medications Current Medications Medications Dose Ordered Sig/Ata Route Start Time Stop Time Status Last Admin Dose Admin Levetiracetam 1,000 mg BID GT 11/09/24 22:00 11/22/24 10:42 1,000 MG Pantoprazole Sodium 40 mg DAILY IV 11/10/24 10:00 11/22/24 10:43 40 MG Acetaminophen 650 mg Q6HP PRN GT 11/09/24 21:30 11/12/24 03:32 650 MG Vancomycin HCl 0 ml @ 0 mls/hr UD IV 11/09/24 21:30 Levalbuterol HCl 0.625 mg Q6HR NEB 11/10/24 00:00 11/22/24 18:51 0.625 MG Ipratropium [place] 0.5 mg Q6HR NEB 11/10/24 00:00 11/22/24 18:52 0.5 MG Acetylcysteine 200 mg Q6HR NEB 11/10/24 00:00 11/22/24 18:51 200 MG Lacosamide 150 mg BID GT 11/10/24 10:00 11/22/24 10:43 150 MG Lorazepam 1 mg Q5MINP PRN IV 11/10/24 15:30 11/11/24 13:53 1 MG Enteral Nutritional Formula 1,000 ml 30ML/HR GT 11/19/24 18:30 11/19/24 20:21 1,000 ML Baclofen 20 mg Q6HR GT 11/20/24 12:00 11/22/24 18:15 20 MG Meropenem 50 ml @ 17 mls/hr Q8HR IV 11/21/24 14:00 11/22/24 13:34 17 MLS/HR Methylprednisolone Sodium Succinate 40 mg DAILY IV 11/21/24 16:30 11/22/24 10:43 40 MG Vancomycin HCl 250 ml @ 250 mls/hr Q8H IV 11/21/24 19:00 11/22/24 21:49 250 MLS/HR Enoxaparin Sodium 40 mg DAILY SC 11/22/24 16:00 11/22/24 18:16 40 MG objective Gen.: Patient lying in bed in no apparent distress. On supplemental oxygen via trach. Head: Normocephalic, atraumatic. Eyes: EOMI/PERRLA. Ears: Normal hearing. Normal anatomy. Neck/trachea: Trach in place. Nose: Normal external anatomy. Mouth: Moist mucous membranes. Chest: Decreased air entry bilaterally. No wheezing or rhonchi. Cardiovascular: Positive S1, positive S2. Regular rate and rhythm. Abdomen: Positive bowel sounds in all 4 quadrants. Soft, non-tender, non- distended. : Deferred. Rectal: Deferred. Skin: Warm, dry. Intact. Extremities: 2+ radial pulses bilaterally. No lower extremity edema. Neuro: Awake, alert, oriented x3. No gross motor or sensory deficits. Cranial nerves II through XII intact. Gait not assessed. laboratory and microbiology Laboratory Tests 11/22/24 04:40 Test 11/22/24 04:40 Range/Units Serum Glucose 117 H 74-106 mg/dL Assessment/Plan Impression Acute hypoxemic respiratory failure Chronic tracheostomy Pneumonia Atelectasis Hx of TBI Events Patient seen and examined On supplemental oxygen 6 LPM via T-Piece Taper O2 as tolerated ABG reviewed, notable for alkalemia Head of bed elevation Aspiration precautions Trach care per RT. Continue bronchodilators/Mucomyst IV steroids Continue antibiotics WBC trending down. Incentive spirometry Protonix for GI ppx Improved s/p bronch on 11/20. Labs and imaging reviewed Plan Supplemental oxygen via trach Titrate to maintain sats above 92% Trach care per RT protocols Incentive spirometry Continue antibiotics F/u cultures and ID Bronchodilators IV steroids Monitor renal function Monitor electrolytes Supplement as needed DVT prophylaxis Prognosis: Poor given patient's multiple co-morbidities. Rest of plan per hospitalist and other consultants. Thank you Dr. Islas for allowing me to participate in this patient's care. Further recommendations will depend on the patient's clinical course. Please do not hesitate to contact me if you have any questions or concerns. This medical document was created using an electronic medical record system with [email or web address] dictation system. Although these documentations are being carefully reviewed, there may still be some phonetic and typographical changes. The errors are purely typographical, due to imperfection on the software program, and do not reflect any compromise in the patient's medical care. Dietary Evaluation Review Comments: Nutrition recommendation 1) TF Jevity 1.2Cal @ 60ml/hr. Start @ 20ml/hr, increase 10ml/hr Q4H until goal is reached. TF @ goal volume provides 1728 kcal (100% energy needs), 80gm protein (100% protein needs), 1162ml free water. 2) Water flush 100ml Q4H 3) Monitor NPO status, TF tolerance, lab values, wt trend, I/O Expected Outcomes/Goals: To meet >75% estimated needs Fu 2-3 days Plan discussed with: Other (CRYSTAL Martinez) HOMERO PENA MD Nov 22, 2024 23:05
[2024-11-23] VITALS (17 sets, daily range): BP systolic 106–119; BP diastolic 42–71; PULSE 49–95; RESP 16–20; TEMP 97.4–98.7; O2SAT 95–100
[2024-11-23] MEDS: VANCOMYCIN 1GM/200ML PM 200 ML IV ONE (05:57)
[2024-11-23 07:31] LABS: Hematocrit 46.3 % (41.0-53.0); Hemoglobin 15.2 g/dL (13.5-17.5); Mean Corpuscular Hemoglobin 28.8 pg (28.0-32.0); Mean Corpuscular Volume 87.6 fL (80.0-100.0); Nucleated Red Blood Cells % 0.1 %
[2024-11-23 07:50] LABS: Alkaline Phosphatase 68 U/L (46-116); Anion Gap 9 (5-15); BUN/Creatinine Ratio 21.6 (10.0-20.0); Blood Urea Nitrogen 11 mg/dL (9-23); Calcium 8.9 mg/dL (8.7-10.4); Carbon Dioxide 25 mmol/L (20-31); Glucose 85 mg/dL (74-106); Potassium 3.5 mmol/L (3.5-5.1); Sodium 142 mmol/L (136-145)
[2024-11-23 07:51] LABS: Bilirubin, Total 0.6 mg/dL (0.2-1.0)
[2024-11-23 08:04] LABS: Alanine Aminotransferase 69 U/L (7-40); Albumin 3.2 g/dL (3.2-4.8); Chloride 108 mmol/L (98-107); Total Protein 5.6 g/dL (5.7-8.2)
--- NOTE | 2024-11-23 12:08 | DVHPNRES ---
Progress Note Date Seen: Nov 23, 2024 Resident Creating Document: ADAMS CHAPMAN ATA Has the PT tested + for MRSA If YES, has PT been informed?: No Medical Necessity Reason Pt with a Central, PICC or Fol: No Subjective Review of Systems Patient seen and examined at bedside. Patient is nonverbal at baseline, could not provide review of system. Patient still needs high-flow oxygen. Patient reports: No new complaints, Feels better Changes from previous H/P or p: Changes Objective vital signs Vital Sign Date Time Temp Pulse Resp B/P (MAP) Pulse Ox O2 Delivery O2 Flow Rate FiO2 11/23/24 11:39 71 18 100 11/23/24 09:00 98.4 119/71 (87) 98.4 11/23/24 07:02 T-piece 6.0 11/23/24 07:02 28 28 Total Intake and Output 11/22/24 11/22/24 11/23/24 15:00 23:00 07:00 Intake Total 300 ml 300 ml 300 ml Output Total 1400 ml 650 ml Balance 300 ml -1100 ml -350 ml medications Current Medications Medications Dose Ordered Sig/Ata Route Start Time Stop Time Status Last Admin Dose Admin Levetiracetam 1,000 mg BID GT 11/09/24 22:00 11/23/24 11:53 1,000 MG Pantoprazole Sodium 40 mg DAILY IV 11/10/24 10:00 11/23/24 11:50 40 MG Acetaminophen 650 mg Q6HP PRN GT 11/09/24 21:30 11/12/24 03:32 650 MG Vancomycin HCl 0 ml @ 0 mls/hr UD IV 11/09/24 21:30 Levalbuterol HCl 0.625 mg Q6HR NEB 11/10/24 00:00 11/23/24 11:27 0.625 MG Ipratropium [place] 0.5 mg Q6HR NEB 11/10/24 00:00 11/23/24 11:27 0.5 MG Acetylcysteine 200 mg Q6HR NEB 11/10/24 00:00 11/23/24 11:27 200 MG Lacosamide 150 mg BID GT 11/10/24 10:00 11/23/24 11:52 150 MG Lorazepam 1 mg Q5MINP PRN IV 11/10/24 15:30 11/11/24 13:53 1 MG Enteral Nutritional Formula 1,000 ml 30ML/HR GT 11/19/24 18:30 11/19/24 20:21 1,000 ML Baclofen 20 mg Q6HR GT 11/20/24 12:00 11/23/24 11:52 20 MG Meropenem 50 ml @ 17 mls/hr Q8HR IV 11/21/24 14:00 11/23/24 05:53 17 MLS/HR Methylprednisolone Sodium Succinate 40 mg DAILY IV 11/21/24 16:30 11/23/24 11:47 40 MG Vancomycin HCl 250 ml @ 250 mls/hr Q8H IV 11/21/24 19:00 11/23/24 05:56 250 MLS/HR Enoxaparin Sodium 40 mg DAILY SC 11/22/24 16:00 11/23/24 11:45 40 MG Examination Gen - no pallor, no icterus, no cyanosis, no clubbing, no LAD, Skin - Patients skin is warm and dry. generalized rash HEENT - status post cranial surgery with a left hemicranium, moist mucous membranes, trach cannula in place Neck - no LAD, no JVD Pulmonary - B/L course rales heard, no wheezing, no stridor. cardiovascular - regular S1,S2 heard, left lower sternal border systolic murmur heard. peripheral pulses normal radial 2+, pedal 2+. capillary refill normal <2 secs. GI - soft abdomen. no hepatosplenomegaly. Bowel sounds normoactive, peg tube in place Neurological - patient is nonverbal, quadriplegic, spontaneous eye opening, responds to mother on verbal command, clonus laboratory and microbiology Laboratory Tests 11/23/24 06:12 Test 11/23/24 06:12 Range/Units Serum Glucose 85 74-106 mg/dL Microbiology Date/Time Source Procedure Growth Status 11/20/24 16:55 Bronchial Washings Gram Stain Pending Resulted 11/20/24 16:55 Bronchial Washings Respiratory Culture - Preliminary Resulted 11/12/24 12:55 Cerebral Spinal Fluid Gram Stain - Final Complete 11/12/24 12:55 Cerebral Spinal Fluid CSF Culture & Gram Stain (Tube 2) M - Final Complete 11/11/24 08:08 Nose MRSA Screen - Final Complete 11/10/24 12:10 Voided Urine Urine Culture - Final Complete 11/09/24 22:14 Blood Blood Culture - Final NO GROWTH AFTER 5 DAYS OF INCUBATION. Complete Labs and/or images reviewed: Labs reviewed by me, Image(s) reviewed by me Problem List/Assessment/Plan Problem List/Assessment/Plan Acute metabolic encephalopathy due to Sepsis Seizure disorder S/p traumatic brain injury S/p ventriculoperitoneal shunt Quadriplegic Meningitis ruled out? IV fluids given - Lorazepam PRN - on Keppra 1000 mg b.i.d. - lacosamide 150 mg b.i.d. 11/11/2024: LP will be done tomorrow, patient is having clonus and possible partial seizures, neurologist was consulted, wbc is trending high, sputum culture is showing gram negative rods, blood cultures prelim negative, patient will be continued in meropenem, vancomycin, ampicilin and acyclovir, head ct scan showed: Frontal approach ventriculostomy catheter with the ventricles being significantly decompressed. Left frontoparietal encephalomalacia. 11/12/2024: LP done, CSF fluid: wbc 9 rbc 84 protein 57 glucose 52, pending gram, culture and hsv pcr, HR is 110 lpm, T 99.6, dexamethasone started 11/13/2024: I&D considered sepsis is caused by pneumonia, AB were downgraded to vancomycin, ceftazidime, meningitis ruled out. Acute on chronic hypoxic respiratory failure Probable aspiration pneumonia due to gram +/- bacteria Sepsis likely due to pneumonia s/p tracheostomy - chest x-ray shows right lower lobe opacity, bibasilar atelectasis - duo nebs q.6 hours - acetylcysteine - Acetobacter baumani is growing in the sputum, ID on board; Chest CT ordered, patient is still having generalized rash, - Continue IV antibiotics as ID - blood culture pending - IV fluids H/o endocarditis(in 2013) - blood cultures negative - echo: no severe valve abnormalities noted s/gastrostomy continue tube feedings Enoxaparin SC PUD prophylaxis: Protonix Plan discussed with Dr. Cueva Plan discussed with: Other (Nurse and the patient's mother) Dietary Evaluation Review Comments: Nutrition recommendation 1) TF Jevity 1.2Cal @ 60ml/hr. Start @ 20ml/hr, increase 10ml/hr Q4H until goal is reached. TF @ goal volume provides 1728 kcal (100% energy needs), 80gm protein (100% protein needs), 1162ml free water. 2) Water flush 100ml Q4H 3) Monitor NPO status, TF tolerance, lab values, wt trend, I/O Expected Outcomes/Goals: To meet >75% estimated needs Fu 2-3 days Addendum Addendum Addendum I was physically present for the geiger portions of the service provided to patient by THE RESIDENT. I have reviewed the documentation, discussed the case with resident and agree with the resident's documentation except as noted. Also the patient's clinical case was discussed with the patient's nurse. This medical document was created using an electronic medical record system with computerized dictation system. Although this document has been carefully reviewed, there might still be some phonetic and typographical errors. These areas are purely typographical due to imperfections of the software programs, and do not reflect any compromise in the patient's medical care. Late signature. Date of Service: Nov 23, 2024 Billing Provider: LEANDER CUEVA MD Common Visit Codes: 12153-[id number] INP/OBS CARE(HIGH) ADAMS CHAPMAN RESDIENT Nov 23, 2024 12:08 LEANDER CUEVA MD Nov 24, 2024 14:11
--- NOTE | 2024-11-23 20:41 | DVHPN2 ---
Progress Note - Dictate Date Seen: Nov 23, 2024 Has the PT tested + for MRSA If YES, has PT been informed?: No Medical Necessity Reason Pt with a Central, PICC or Fol: No Subjective Patient seen and examined at bedside. Remains on supplemental oxygen via trach Overnight events reviewed vital signs Vital Sign Date Time Temp Pulse Resp B/P (MAP) Pulse Ox O2 Delivery O2 Flow Rate FiO2 11/23/24 19:00 95 18 100 11/23/24 18:53 T-piece 6.0 11/23/24 18:53 28 28 11/23/24 16:58 98.3 111/62 (78) 98.3 Total Intake and Output 11/22/24 11/22/24 11/23/24 15:00 23:00 07:00 Intake Total 300 ml 300 ml 300 ml Output Total 1400 ml 650 ml Balance 300 ml -1100 ml -350 ml medications Current Medications Medications Dose Ordered Sig/Ata Route Start Time Stop Time Status Last Admin Dose Admin Levetiracetam 1,000 mg BID GT 11/09/24 22:00 11/23/24 11:53 1,000 MG Pantoprazole Sodium 40 mg DAILY IV 11/10/24 10:00 11/23/24 11:50 40 MG Acetaminophen 650 mg Q6HP PRN GT 11/09/24 21:30 11/12/24 03:32 650 MG Vancomycin HCl 0 ml @ 0 mls/hr UD IV 11/09/24 21:30 Levalbuterol HCl 0.625 mg Q6HR NEB 11/10/24 00:00 11/23/24 18:45 0.625 MG Ipratropium [place] 0.5 mg Q6HR NEB 11/10/24 00:00 11/23/24 18:45 0.5 MG Acetylcysteine 200 mg Q6HR NEB 11/10/24 00:00 11/23/24 18:53 200 MG Lacosamide 150 mg BID GT 11/10/24 10:00 11/23/24 11:52 150 MG Lorazepam 1 mg Q5MINP PRN IV 11/10/24 15:30 11/11/24 13:53 1 MG Enteral Nutritional Formula 1,000 ml 30ML/HR GT 11/19/24 18:30 11/19/24 20:21 1,000 ML Baclofen 20 mg Q6HR GT 11/20/24 12:00 11/23/24 18:58 20 MG Meropenem 50 ml @ 17 mls/hr Q8HR IV 11/21/24 14:00 11/23/24 15:16 17 MLS/HR Methylprednisolone Sodium Succinate 40 mg DAILY IV 11/21/24 16:30 11/23/24 11:47 40 MG Vancomycin HCl 250 ml @ 250 mls/hr Q8H IV 11/21/24 19:00 11/23/24 19:00 250 MLS/HR Enoxaparin Sodium 40 mg DAILY SC 11/22/24 16:00 11/23/24 11:45 40 MG objective Gen.: Patient lying in bed in no apparent distress. On supplemental oxygen via trach. Head: Normocephalic, atraumatic. Eyes: EOMI/PERRLA. Ears: Normal hearing. Normal anatomy. Neck/trachea: Trach in place. Nose: Normal external anatomy. Mouth: Moist mucous membranes. Chest: Decreased air entry bilaterally. No wheezing or rhonchi. Cardiovascular: Positive S1, positive S2. Regular rate and rhythm. Abdomen: Positive bowel sounds in all 4 quadrants. Soft, non-tender, non- distended. : Deferred. Rectal: Deferred. Skin: Warm, dry. Intact. Extremities: 2+ radial pulses bilaterally. No lower extremity edema. Neuro: Awake, alert, oriented x3. No gross motor or sensory deficits. Cranial nerves II through XII intact. Gait not assessed. laboratory and microbiology Laboratory Tests 11/23/24 06:12 Test 11/23/24 06:12 Range/Units Serum Glucose 85 74-106 mg/dL Assessment/Plan Impression Acute hypoxemic respiratory failure Chronic tracheostomy Pneumonia Atelectasis Hx of TBI Events Patient seen and examined at bedside Remains on 6 LPM humidified O2 via T-Piece Taper O2 as tolerated No new respiratory complaints. CXR on 11/22/24 revealed minimal bibasilar airspace disease and diminished lung volumes. Head of bed elevation Aspiration precautions Trach care per RT. Continue bronchodilators/Mucomyst IV steroids Continue antibiotics Monitor WBC - trended up at 15 K Incentive spirometry Protonix for GI ppx Updated mother at bedside. S/p bronch on 11/20. Labs and imaging reviewed Plan Supplemental oxygen via trach Titrate to maintain sats above 92% Trach care per RT protocols Incentive spirometry Continue antibiotics F/u cultures and ID Bronchodilators IV steroids Monitor renal function Monitor electrolytes Supplement as needed DVT prophylaxis Prognosis: Poor given patient's multiple co-morbidities. Rest of plan per hospitalist and other consultants. Thank you Dr. Islas for allowing me to participate in this patient's care. Further recommendations will depend on the patient's clinical course. Please do not hesitate to contact me if you have any questions or concerns. This medical document was created using an electronic medical record system with [employer] dictation system. Although these documentations are being carefully reviewed, there may still be some phonetic and typographical changes. The errors are purely typographical, due to imperfection on the software program, and do not reflect any compromise in the patient's medical care. Dietary Evaluation Review Comments: Nutrition recommendation 1) TF Jevity 1.2Cal @ 60ml/hr. Start @ 20ml/hr, increase 10ml/hr Q4H until goal is reached. TF @ goal volume provides 1728 kcal (100% energy needs), 80gm protein (100% protein needs), 1162ml free water. 2) Water flush 100ml Q4H 3) Monitor NPO status, TF tolerance, lab values, wt trend, I/O Expected Outcomes/Goals: To meet >75% estimated needs Fu 2-3 days Plan discussed with: Other (Mother/RN Aimee) HOMERO PENA MD Nov 23, 2024 20:41
[2024-11-24] VITALS (18 sets, daily range): BP systolic 105–116; BP diastolic 49–69; PULSE 53–90; RESP 16–19; TEMP 97.6–98.3; O2SAT 94–100
[2024-11-24 07:26] LABS: Potassium 3.6 mmol/L (3.5-5.1); Sodium 142 mmol/L (136-145)
[2024-11-24 07:27] LABS: Anion Gap 9 (5-15); Carbon Dioxide 26 mmol/L (20-31)
[2024-11-24 07:29] LABS: Hematocrit 43.8 % (41.0-53.0); Hemoglobin 14.6 g/dL (13.5-17.5); Mean Corpuscular Hemoglobin 29.1 pg (28.0-32.0); Mean Corpuscular Volume 87.0 fL (80.0-100.0); Nucleated Red Blood Cells % 0.0 %
[2024-11-24 07:32] LABS: BUN/Creatinine Ratio 28.9 (10.0-20.0); Blood Urea Nitrogen 13 mg/dL (9-23); Calcium 8.7 mg/dL (8.7-10.4); Chloride 107 mmol/L (98-107); Glucose 94 mg/dL (74-106)
[2024-11-24] MEDS ORDERED: PANT40T PO (13:57)
[2024-11-24] MEDS ORDERED: PRED20TA2 PO (13:57)
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
[2024-11-24] MEDS: VANCOMYCIN 1GM/200ML PM 200 ML IV ONE (21:03)
--- NOTE | 2024-11-24 23:11 | DVHPN2 ---
Progress Note - Dictate Date Seen: Nov 24, 2024 Has the PT tested + for MRSA If YES, has PT been informed?: No Medical Necessity Reason Pt with a Central, PICC or Fol: No Subjective Mr. Molina is a 49 years old gentleman with a history of traumatic brain injury, craniotomy, seizure disorder, he was [facility] to the [facility] on 11[facility]09[facility]2024 with a chief company of fever, tachycardia, desaturation. I have seen and examined the patient, I have discussed with his nurse and sitter, he is doing fine, socially appropriate, respond to verbal stimuli The Respiratory culture was positive for E coli, he also has MRSA CSF profile, 11/12/2024: C/C, WBC: Nine, Nancy: 73, motor 27, protein 57.9, glucose 52 Urinalysis, 11/10/2024: WBC: 2, urine leukocyte esterase: Negative CBC, 11/11/2024: Respiratory alkalosis WBC/HB/PLT/MCV, 11/11/2024: 19.4/16.5/139/90.1 TBI/AST/ALT/AP, 11/10/2024: 1.1/35/59/74 Chest x-ray, 11/11/2024: Cardiomegaly without overt failure Chest x-ray, 11/12/2024: Cardiomegaly with pulmonary congestion and edema. Superimposed pneumonia cannot be excluded CT head, 11/10/2024: No intracranial hemorrhage .Right frontal approach ventriculostomy catheter with the ventricles being significantly decompressed. Left frontoparietal encephalomalacia. vital signs Vital Sign Date Time Temp Pulse Resp B/P (MAP) Pulse Ox O2 Delivery O2 Flow Rate FiO2 11/24/24 21:00 97.6 55 18 112/61 (78) 96 97.6 11/24/24 18:57 T-piece 6.0 11/24/24 18:57 28 28 Total Intake and Output 11/23/24 11/23/24 11/24/24 15:00 23:00 07:00 Intake Total 250 ml 510 ml 377 ml Output Total 1400 ml 700 ml Balance 250 ml -890 ml -323 ml medications Current Medications Medications Dose Ordered Sig/Ata Route Start Time Stop Time Status Last Admin Dose Admin Levetiracetam 1,000 mg BID GT 11/09/24 22:00 11/24/24 09:00 1,000 MG Pantoprazole Sodium 40 mg DAILY IV 11/10/24 10:00 11/24/24 09:04 40 MG Acetaminophen 650 mg Q6HP PRN GT 11/09/24 21:30 11/12/24 03:32 650 MG Vancomycin HCl 0 ml @ 0 mls/hr UD IV 11/09/24 21:30 Levalbuterol HCl 0.625 mg Q6HR NEB 11/10/24 00:00 11/24/24 18:57 0.625 MG Ipratropium [place] 0.5 mg Q6HR NEB 11/10/24 00:00 11/24/24 18:57 0.5 MG Acetylcysteine 200 mg Q6HR NEB 11/10/24 00:00 11/24/24 19:00 200 MG Lacosamide 150 mg BID GT 11/10/24 10:00 11/24/24 22:34 150 MG Lorazepam 1 mg Q5MINP PRN IV 11/10/24 15:30 11/11/24 13:53 1 MG Enteral Nutritional Formula 1,000 ml 30ML/HR GT 11/19/24 18:30 11/19/24 20:21 1,000 ML Baclofen 20 mg Q6HR GT 11/20/24 12:00 11/24/24 18:29 20 MG Meropenem 50 ml @ 17 mls/hr Q8HR IV 11/21/24 14:00 11/24/24 22:34 17 MLS/HR Methylprednisolone Sodium Succinate 40 mg DAILY IV 11/21/24 16:30 11/24/24 09:06 40 MG Vancomycin HCl 250 ml @ 250 mls/hr Q8H IV 11/21/24 19:00 11/24/24 21:00 250 MLS/HR Enoxaparin Sodium 40 mg DAILY SC 11/22/24 16:00 11/24/24 09:02 40 MG objective General: the patient is well developed and nourished. No acute distress. MENTAL STATUS: Subjective SPEECH, LANGUAGE, HIGHER CORTICAL FUNCTION: He does not vocalize/status post tracheostomy CRANIAL NERVES: Pupils are equal, round and reactive. EOMs full and conjugate. Facial sensation intact in all three divisions bilaterally. Mandibular strength intact. Facial muscles symmetrical and strength intact. SENSATION: Responsive to touch stimuli MOTOR: Increased tone in the upper and lower extremity. Diffuse muscle atrophy. No fasciculations. No abnormal movements or posturing. No spontaneous movement in the extremities REFLEXES: Deep tendon reflexes are diffusely increased, with clonus in the upper extremities, bilateral ankles. Upgoing toes in both feet CEREBELLAR/COORDINATION: Deferred GAIT/STATION: deferred. laboratory and microbiology Laboratory Tests 11/24/24 05:43 Test 11/24/24 05:43 Range/Units Serum Glucose 94 74-106 mg/dL Problem List Fever, ALOC with elevated WBC, protein Partially treated meningitis Aseptic meningitis Seizure breakthrough, fever, to rule out meningitis Generalized tonic-clonic seizure secondary to traumatic brain injury Chronic traumatic brain injury status post craniotomy, [employer] shunt ? 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 Keppra 1000 mg b.i.d. Baclofen 20 mg q.i.d. Ativan for seizure breakthrough DVT prophylaxis GI prophylaxis More recommendation per clinical course This medical document was created using an electronic medical record system with [employer] dictation system. Although this document has been carefully reviewed, there may still be some phonetic and typographical errors. These areas are purely typographical due to imperfections of the software programs, and do not reflect any compromise in the patient's medical care. Prognosis poor Dietary Evaluation Review Comments: Nutrition recommendation 1) TF Jevity 1.2Cal @ 60ml/hr. Start @ 20ml/hr, increase 10ml/hr Q4H until goal is reached. TF @ goal volume provides 1728 kcal (100% energy needs), 80gm protein (100% protein needs), 1162ml free water. 2) Water flush 100ml Q4H 3) Monitor NPO status, TF tolerance, lab values, wt trend, I/O Expected Outcomes/Goals: To meet >75% estimated needs Fu 2-3 days Plan discussed with: Other AGNIESZKA ESPINOZA MD Nov 24, 2024 23:11
--- NOTE | 2024-11-24 23:21 | DVHPN2 ---
Progress Note - Dictate Date Seen: Nov 24, 2024 Has the PT tested + for MRSA If YES, has PT been informed?: No Medical Necessity Reason Pt with a Central, PICC or Fol: Yes The following are medically ne: Willis Catheter Reason for willis catheter: Strict I&O Subjective Patient seen and examined at bedside. Remains on supplemental oxygen via trach Overnight events reviewed vital signs Vital Sign Date Time Temp Pulse Resp B/P (MAP) Pulse Ox O2 Delivery O2 Flow Rate FiO2 11/24/24 21:00 97.6 55 18 112/61 (78) 96 97.6 11/24/24 18:57 T-piece 6.0 11/24/24 18:57 28 28 Total Intake and Output 11/23/24 11/23/24 11/24/24 15:00 23:00 07:00 Intake Total 250 ml 510 ml 377 ml Output Total 1400 ml 700 ml Balance 250 ml -890 ml -323 ml medications Current Medications Medications Dose Ordered Sig/Ata Route Start Time Stop Time Status Last Admin Dose Admin Levetiracetam 1,000 mg BID GT 11/09/24 22:00 11/24/24 09:00 1,000 MG Pantoprazole Sodium 40 mg DAILY IV 11/10/24 10:00 11/24/24 09:04 40 MG Acetaminophen 650 mg Q6HP PRN GT 11/09/24 21:30 11/12/24 03:32 650 MG Vancomycin HCl 0 ml @ 0 mls/hr UD IV 11/09/24 21:30 Levalbuterol HCl 0.625 mg Q6HR NEB 11/10/24 00:00 11/24/24 18:57 0.625 MG Ipratropium [place] 0.5 mg Q6HR NEB 11/10/24 00:00 11/24/24 18:57 0.5 MG Acetylcysteine 200 mg Q6HR NEB 11/10/24 00:00 11/24/24 19:00 200 MG Lacosamide 150 mg BID GT 11/10/24 10:00 11/24/24 22:34 150 MG Lorazepam 1 mg Q5MINP PRN IV 11/10/24 15:30 11/11/24 13:53 1 MG Enteral Nutritional Formula 1,000 ml 30ML/HR GT 11/19/24 18:30 11/19/24 20:21 1,000 ML Baclofen 20 mg Q6HR GT 11/20/24 12:00 11/24/24 18:29 20 MG Meropenem 50 ml @ 17 mls/hr Q8HR IV 11/21/24 14:00 11/24/24 22:34 17 MLS/HR Methylprednisolone Sodium Succinate 40 mg DAILY IV 11/21/24 16:30 11/24/24 09:06 40 MG Vancomycin HCl 250 ml @ 250 mls/hr Q8H IV 11/21/24 19:00 11/24/24 21:00 250 MLS/HR Enoxaparin Sodium 40 mg DAILY SC 11/22/24 16:00 11/24/24 09:02 40 MG objective Gen.: Patient lying in bed in no apparent distress. On supplemental oxygen via trach. Head: Normocephalic, atraumatic. Eyes: EOMI/PERRLA. Ears: Normal hearing. Normal anatomy. Neck/trachea: Trach in place. Nose: Normal external anatomy. Mouth: Moist mucous membranes. Chest: Decreased air entry bilaterally. No wheezing or rhonchi. Cardiovascular: Positive S1, positive S2. Regular rate and rhythm. Abdomen: Positive bowel sounds in all 4 quadrants. Soft, non-tender, non- distended. : Deferred. Rectal: Deferred. Skin: Warm, dry. Intact. Extremities: 2+ radial pulses bilaterally. No lower extremity edema. Neuro: Awake, alert, oriented x3. No gross motor or sensory deficits. Cranial nerves II through XII intact. Gait not assessed. laboratory and microbiology Laboratory Tests 11/24/24 05:43 Test 11/24/24 05:43 Range/Units Serum Glucose 94 74-106 mg/dL Assessment/Plan Impression Acute hypoxemic respiratory failure Chronic tracheostomy Pneumonia Atelectasis Hx of TBI Events Patient seen and examined at bedside Remains on 6 LPM humidified O2 via T-Piece Taper O2 as tolerated No new respiratory complaints. CXR on 11/22/24 revealed minimal bibasilar airspace disease and diminished lung volumes. Head of bed elevation Aspiration precautions Trach care per RT. Continue bronchodilators/Mucomyst IV steroids - taper as tolerated Continue antibiotics, complete 7- to 10-day course Monitor WBC - elevated at 15.4 K Incentive spirometry for atelectasis Protonix for GI ppx Disposition per hospitalist. S/p bronch on 11/20. Labs and imaging reviewed Plan Supplemental oxygen via trach Titrate to maintain sats above 92% Trach care per RT protocols Incentive spirometry Continue antibiotics F/u cultures and ID Bronchodilators IV steroids Monitor renal function Monitor electrolytes Supplement as needed DVT prophylaxis Prognosis: Poor given patient's multiple co-morbidities. Rest of plan per hospitalist and other consultants. Thank you Dr. Islas for allowing me to participate in this patient's care. Further recommendations will depend on the patient's clinical course. Please do not hesitate to contact me if you have any questions or concerns. This medical document was created using an electronic medical record system with [employer] dictation system. Although these documentations are being carefully reviewed, there may still be some phonetic and typographical changes. The errors are purely typographical, due to imperfection on the software program, and do not reflect any compromise in the patient's medical care. Dietary Evaluation Review Comments: Nutrition recommendation 1) TF Jevity 1.2Cal @ 60ml/hr. Start @ 20ml/hr, increase 10ml/hr Q4H until goal is reached. TF @ goal volume provides 1728 kcal (100% energy needs), 80gm protein (100% protein needs), 1162ml free water. 2) Water flush 100ml Q4H 3) Monitor NPO status, TF tolerance, lab values, wt trend, I/O Expected Outcomes/Goals: To meet >75% estimated needs Fu 2-3 days Plan discussed with: Patient, Other (CRYSTAL Yu) HOMERO PENA MD Nov 24, 2024 23:21
[2024-11-25] VITALS (18 sets, daily range): BP systolic 103–115; BP diastolic 45–58; PULSE 50–97; RESP 16–20; TEMP 97.8–98.7; O2SAT 95–100
[2024-11-25] MEDS: VANCOMYCIN 1GM/200ML PM 200 ML IV ONE (02:40)
[2024-11-25 05:53] LABS: Hematocrit 44.2 % (41.0-53.0); Hemoglobin 14.9 g/dL (13.5-17.5); Mean Corpuscular Hemoglobin 29.2 pg (28.0-32.0); Mean Corpuscular Volume 86.8 fL (80.0-100.0); Nucleated Red Blood Cells % 0.0 %
--- NOTE | 2024-11-25 13:57 | DVHPNRES ---
Progress Note Date Seen: Nov 25, 2024 Resident Creating Document: FLAKO WOODSON RESIDENT Has the PT tested + for MRSA If YES, has PT been informed?: No Medical Necessity Reason Pt with a Central, PICC or Fol: Yes The following are medically ne: Willis Catheter Reason for willis catheter: Strict I&O Subjective Review of Systems Patient seen and examined at bedside. Patient is nonverbal at baseline, could not provide review of system. Patient still needs high-flow oxygen. Initially plan was to sent the patient to LTAC but family wants to take the patient home. Recent respiratory culture revealed ESBL E coli. Patient was discharged yesterday to home with home health for continuation of IV antibiotic meropenem 1 g 8 hourly for 10 days. Objective vital signs Vital Sign Date Time Temp Pulse Resp B/P (MAP) Pulse Ox O2 Delivery O2 Flow Rate FiO2 11/25/24 11:52 60 19 99 11/25/24 11:44 T-piece 6.0 11/25/24 11:44 28 28 11/25/24 07:30 107/56 11/25/24 05:00 98.0 98.0 Total Intake and Output 11/24/24 11/24/24 11/25/24 15:00 23:00 07:00 Intake Total 300 ml 690 ml 685.5 ml Output Total 1250 ml 800 ml Balance 300 ml -560 ml -114.5 ml medications Current Medications Medications Dose Ordered Sig/Ata Route Start Time Stop Time Status Last Admin Dose Admin Levetiracetam 1,000 mg BID GT 11/09/24 22:00 11/25/24 08:07 1,000 MG Pantoprazole Sodium 40 mg DAILY IV 11/10/24 10:00 11/25/24 08:09 40 MG Acetaminophen 650 mg Q6HP PRN GT 11/09/24 21:30 11/12/24 03:32 650 MG Vancomycin HCl 0 ml @ 0 mls/hr UD IV 11/09/24 21:30 Levalbuterol HCl 0.625 mg Q6HR NEB 11/10/24 00:00 11/25/24 11:45 0.625 MG Ipratropium [place] 0.5 mg Q6HR NEB 11/10/24 00:00 11/25/24 11:44 0.5 MG Acetylcysteine 200 mg Q6HR NEB 11/10/24 00:00 11/25/24 11:44 200 MG Lacosamide 150 mg BID GT 11/10/24 10:00 11/25/24 08:10 150 MG Lorazepam 1 mg Q5MINP PRN IV 11/10/24 15:30 11/11/24 13:53 1 MG Enteral Nutritional Formula 1,000 ml 30ML/HR GT 11/19/24 18:30 11/25/24 06:34 1,000 ML Baclofen 20 mg Q6HR GT 11/20/24 12:00 11/25/24 11:16 20 MG Meropenem 50 ml @ 17 mls/hr Q8HR IV 11/21/24 14:00 11/25/24 05:25 17 MLS/HR Methylprednisolone Sodium Succinate 40 mg DAILY IV 11/21/24 16:30 11/25/24 08:07 40 MG Vancomycin HCl 250 ml @ 250 mls/hr Q8H IV 11/21/24 19:00 11/25/24 11:16 250 MLS/HR Enoxaparin Sodium 40 mg DAILY SC 11/22/24 16:00 11/25/24 08:07 40 MG Examination Examination Gen - no pallor, no icterus, no cyanosis, no clubbing, no LAD, Skin - Patients skin is warm and dry. generalized rash HEENT - status post cranial surgery with a left hemicranium, moist mucous membranes, trach cannula in place Neck - no LAD, no JVD Pulmonary - B/L course rales heard, no wheezing, no stridor. cardiovascular - regular S1,S2 heard, left lower sternal border systolic murmur heard. peripheral pulses normal radial 2+, pedal 2+. capillary refill normal <2 secs. GI - soft abdomen. no hepatosplenomegaly. Bowel sounds normoactive, peg tube in place Neurological - patient is nonverbal, quadriplegic, spontaneous eye opening, responds to mother on verbal command, clonus laboratory and microbiology Laboratory Tests 11/25/24 05:00 11/24/24 05:43 Test 11/24/24 05:43 Range/Units Serum Glucose 94 74-106 mg/dL Microbiology Date/Time Source Procedure Growth Status 11/20/24 16:55 Bronchial Washings Gram Stain - Final Resulted 11/20/24 16:55 Respiratory Culture - Preliminary Escherichia coli - ESBL Pseudomonas aeruginosa Resulted 11/12/24 12:55 Cerebral Spinal Fluid Gram Stain - Final Complete 11/12/24 12:55 Cerebral Spinal Fluid CSF Culture & Gram Stain (Tube 2) M - Final Complete 11/11/24 08:08 Nose MRSA Screen - Final Complete 11/10/24 12:10 Voided Urine Urine Culture - Final Complete 11/09/24 22:14 Blood Blood Culture - Final NO GROWTH AFTER 5 DAYS OF INCUBATION. Complete Problem List/Assessment/Plan Problem List/Assessment/Plan Assessment and Plan: Acute metabolic encephalopathy due to Sepsis Seizure disorder S/p traumatic brain injury S/p ventriculoperitoneal shunt Quadriplegic Possible aseptic meningitis, s/p LP IV fluids given - Lorazepam PRN - on Keppra 1000 mg b.i.d. - lacosamide 150 mg b.i.d. Acute on chronic hypoxic respiratory failure Probable aspiration pneumonia due to gram +/- bacteria Sepsis likely due to pneumonia s/p tracheostomy S/P bronchoscopy - chest x-ray shows right lower lobe opacity, bibasilar atelectasis - duo nebs q.6 hours - acetylcysteine - MRSA nares positive and respiratory culture showed Pseudomonas, ESBL, E.coli - IV meropenem 1 gm Q8hr and IV vancomycin as per pharmacy. - blood culture negative H/o endocarditis(in 2013) - blood cultures negative - echo: no severe valve abnormalities noted s/p gastrostomy continue tube feedings Enoxaparin SC PUD prophylaxis: Protonix Plan discussed with Dr. Man Plan discussed with: Other (family) My Orders My Orders Orders - FLAKO WOODSON RESIDENT Procedure Category Date Status Time Discontinue Tele KAMERON 11/24/24 In Process 15:32 Transfer Orders XFER 11/24/24 Transmitted 15:32 * Bullet Assembly Press Operator CONS 11/25/24 Transmitted Consult 09:16 Dietary Evaluation Review Comments: Nutrition recommendation 1) TF Jevity 1.2Cal @ 60ml/hr. Start @ 20ml/hr, increase 10ml/hr Q4H until goal is reached. TF @ goal volume provides 1728 kcal (100% energy needs), 80gm protein (100% protein needs), 1162ml free water. 2) Water flush 100ml Q4H 3) Monitor NPO status, TF tolerance, lab values, wt trend, I/O Expected Outcomes/Goals: To meet >75% estimated needs Fu 2-3 days Date of Service: Nov 25, 2024 Billing Provider: ELMER MAN MD Common Visit Codes: [id number] INP/OBS CARE(HIGH) FLAKO WOODSON RESIDENT Nov 25, 2024 13:57 ELMER MAN MD Nov 25, 2024 21:15
[2024-11-26] VITALS (17 sets, daily range): BP systolic 103–132; BP diastolic 38–65; PULSE 49–76; RESP 14–20; TEMP 97.3–98.4; O2SAT 95–100
[2024-11-26] MEDS: VANCOMYCIN 1GM/200ML PM 200 ML IV SCH (03:56)
[2024-11-26 07:01] LABS: Hematocrit 43.1 % (41.0-53.0); Hemoglobin 14.3 g/dL (13.5-17.5); Mean Corpuscular Hemoglobin 28.9 pg (28.0-32.0); Mean Corpuscular Volume 87.4 fL (80.0-100.0); Nucleated Red Blood Cells % 0.1 %
--- NOTE | 2024-11-26 12:44 | MEDREC ---
[facility] Intervention Section I [facility] Intervention: Review courses of therapy (PLEASE CONSIDER AN ID CONSULT TO REVIEW THE COURSE OF THERAPY (SWITCHING MEROPENEM TO ZERBAXA) ACCORDING TO THE BRONCHIAL WASHING CULTURE RESULTS (PSEUDOMONAS AERUGINOSA MDRO) ) AUSTYN MCKEON PHARMACIST Nov 26, 2024 12:44
[2024-11-26] MEDS ORDERED: ERTAPENEM SOD INJ 1 GM in SODIUM CHL 0.9% 50 ML IV ONE (15:45)
[2024-11-26] MEDS ORDERED: GENTAMICIN PER PHARMACY 0 ML IV SCH ×2 (15:45)
--- NOTE | 2024-11-26 15:52 | DVHPNRES ---
Progress Note Date Seen: Nov 26, 2024 Resident Creating Document: FLAKO WOODSON RESIDENT Has the PT tested + for MRSA If YES, has PT been informed?: No Medical Necessity Reason Pt with a Central, PICC or Fol: Yes The following are medically ne: Willis Catheter Reason for willis catheter: Strict I&O Subjective Review of Systems Patient seen and examined at bedside. Patient is nonverbal at baseline, could not provide review of system. Patient is on 4L oxygen, s/p tracheostomy. Initially plan was to sent the patient to LTAC but family wants to take the patient home. Recent respiratory culture revealed ESBL E coli and psedomonas resistant to meropenem. IV ertapenem and IV gentamicin as per pharmacy. ID was on board and re-consultation of the ID done regarding choice of the antibiotic. Objective vital signs Vital Sign Date Time Temp Pulse Resp B/P (MAP) Pulse Ox O2 Delivery O2 Flow Rate FiO2 11/26/24 13:00 97.8 61 17 128/52 (77) 95 97.8 11/26/24 11:58 Trach Collar 6 28 28 Total Intake and Output 11/25/24 11/25/24 11/26/24 15:00 23:00 07:00 Intake Total 300 ml 427 ml 250 ml Output Total 1400 ml Balance 300 ml -973 ml 250 ml medications Current Medications Medications Dose Ordered Sig/Ata Route Start Time Stop Time Status Last Admin Dose Admin Levetiracetam 1,000 mg BID GT 11/09/24 22:00 11/26/24 10:23 1,000 MG Pantoprazole Sodium 40 mg DAILY IV 11/10/24 10:00 11/26/24 10:16 40 MG Acetaminophen 650 mg Q6HP PRN GT 11/09/24 21:30 11/12/24 03:32 650 MG Levalbuterol HCl 0.625 mg Q6HR NEB 11/10/24 00:00 11/26/24 11:53 0.625 MG Ipratropium [place] 0.5 mg Q6HR NEB 11/10/24 00:00 11/26/24 11:53 0.5 MG Acetylcysteine 200 mg Q6HR NEB 11/10/24 00:00 11/26/24 11:54 200 MG Lacosamide 150 mg BID GT 11/10/24 10:00 11/26/24 10:12 150 MG Lorazepam 1 mg Q5MINP PRN IV 11/10/24 15:30 11/11/24 13:53 1 MG Enteral Nutritional Formula 1,000 ml 30ML/HR GT 11/19/24 18:30 11/25/24 06:34 1,000 ML Baclofen 20 mg Q6HR GT 11/20/24 12:00 11/26/24 06:35 20 MG Methylprednisolone Sodium Succinate 40 mg DAILY IV 11/21/24 16:30 11/26/24 10:16 40 MG Enoxaparin Sodium 40 mg DAILY SC 11/22/24 16:00 11/26/24 10:16 40 MG Ertapenem 1 gm/ Sodium Chloride 50 ml @ 100 mls/hr DAILY IV 11/27/24 10:00 UNV Gentamicin Sulfate 0 ml @ 0 mls/hr PER PHARMACY IV 11/26/24 15:45 UNV Examination Examination Gen - no pallor, no icterus, no cyanosis, no clubbing, no LAD, Skin - Patients skin is warm and dry. generalized rash HEENT - status post cranial surgery with a left hemicranium, moist mucous membranes, trach cannula in place Neck - no LAD, no JVD Pulmonary - B/L course rales heard, no wheezing, no stridor. cardiovascular - regular S1,S2 heard, left lower sternal border systolic murmur heard. peripheral pulses normal radial 2+, pedal 2+. capillary refill normal <2 secs. GI - soft abdomen. no hepatosplenomegaly. Bowel sounds normoactive, peg tube in place Neurological - patient is nonverbal, quadriplegic, spontaneous eye opening, responds to mother on verbal command, clonus laboratory and microbiology Laboratory Tests 11/26/24 06:23 11/24/24 05:43 Test 11/24/24 05:43 Range/Units Serum Glucose 94 74-106 mg/dL Microbiology Date/Time Source Procedure Growth Status 11/20/24 16:55 Bronchial Washings Gram Stain - Final Resulted 11/20/24 16:55 Respiratory Culture - Preliminary Escherichia coli - ESBL Pseudomonas aeruginosa Resulted 11/12/24 12:55 Cerebral Spinal Fluid Gram Stain - Final Complete 11/12/24 12:55 Cerebral Spinal Fluid CSF Culture & Gram Stain (Tube 2) M - Final Complete 11/11/24 08:08 Nose MRSA Screen - Final Complete 11/10/24 12:10 Voided Urine Urine Culture - Final Complete 11/09/24 22:14 Blood Blood Culture - Final NO GROWTH AFTER 5 DAYS OF INCUBATION. Complete Labs and/or images reviewed: Labs reviewed by me, Image(s) reviewed by me Problem List/Assessment/Plan Problem List/Assessment/Plan Assessment and Plan: Acute metabolic encephalopathy due to Sepsis Seizure disorder S/p traumatic brain injury S/p ventriculoperitoneal shunt Quadriplegic Possible aseptic meningitis, s/p LP IV fluids given - Lorazepam PRN - on Keppra 1000 mg b.i.d. - lacosamide 150 mg b.i.d. Acute on chronic hypoxic respiratory failure Probable aspiration pneumonia due to gram +/- bacteria Sepsis likely due to pneumonia s/p tracheostomy S/P bronchoscopy - chest x-ray shows right lower lobe opacity, bibasilar atelectasis - duo nebs q.6 hours - acetylcysteine - MRSA nares positive and respiratory culture showed Pseudomonas, ESBL, E.coli - IV meropenem 1 gm Q8hr and IV gentamicin as per pharmacy. - blood culture negative H/o endocarditis(in 2013) - blood cultures negative - echo: no severe valve abnormalities noted s/p gastrostomy continue tube feedings Enoxaparin SC PUD prophylaxis: Protonix Plan discussed with Dr. Man Plan discussed with: Other (Mom, resident) My Orders My Orders Orders - FLKAO WOODSON RESIDENT Procedure Category Date Status Time Ertapenem Sod Inj PHA 11/26/24 Logged ([place]) 15:45 Ertapenem Sod Inj PHA 11/27/24 Logged ([place]) 10:00 Gentamicin Per PHA 11/26/24 Logged Pharmacy 15:45 Meropenem 1gm Q12hr PHA 11/26/24 Transmitted ([id number]) 22:00 Dietary Evaluation Review Comments: Nutrition recommendation 1) TF Jevity 1.2Cal @ 60ml/hr. Start @ 20ml/hr, increase 10ml/hr Q4H until goal is reached. TF @ goal volume provides 1728 kcal (100% energy needs), 80gm protein (100% protein needs), 1162ml free water. 2) Water flush 100ml Q4H 3) Monitor NPO status, TF tolerance, lab values, wt trend, I/O Expected Outcomes/Goals: To meet >75% estimated needs Fu 2-3 days Date of Service: Nov 26, 2024 Billing Provider: ELMER MAN MD Common Visit Codes: [id number] INP/OBS CARE(HIGH) FLAKO WOODSON RESIDENT Nov 26, 2024 15:52 ELMER MAN MD Nov 27, 2024 08:42
[2024-11-26] MEDS ORDERED: MEROPENEM 1GM IVPB 50 ML IV ONE (16:45)
[2024-11-26] MEDS: GENTAMICIN SULFATE 80 MG in D5W 5% 100 ML IV SCH (18:00)
[2024-11-26] MEDS: MEROPENEM 1GM IVPB 50 ML IV ONE (18:09)
[2024-11-26] MEDS: CEFTOLOZANE TAZOB IV SCH (20:50)
[2024-11-26] MEDS: [UNRECOGNIZED DRUG - OTHER] IV SCH (20:50)
[2024-11-26] MEDS: D5W 5% IV SCH (20:50)
[2024-11-26] MEDS ORDERED: MEROPENEM 1GM IVPB 50 ML IV SCH (22:00)
--- NOTE | 2024-11-26 22:22 | DVHPN2 ---
Progress Note - Dictate Date Seen: Nov 26, 2024 Has the PT tested + for MRSA If YES, has PT been informed?: No Medical Necessity Reason Pt with a Central, PICC or Fol: Yes The following are medically ne: Willis Catheter Reason for willis catheter: Strict I&O Subjective Mr. Molina is a 49 years old gentleman with a history of traumatic brain injury, craniotomy, seizure disorder, he was [facility] to the [facility] on 11/09/2024 with a chief company of fever, tachycardia, desaturation. I have seen and examined the patient, I have discussed with his nurse and sitter, he is doing fine, socially appropriate, respond to verbal stimuli Bronchial wash culture, 11/20/2024: E coli, Pseudomonas aeruginosa CSF profile, 11/12/2024: C/C, WBC: Nine, Nancy: 73, motor 27, protein 57.9, glucose 52 Urinalysis, 11/10/2024: WBC: 2, urine leukocyte esterase: Negative CBC, 11/11/2024: Respiratory alkalosis WBC/HB/PLT/MCV, 11/11/2024: 19.4/16.5/139/90.1 TBI/AST/ALT/AP, 11/10/2024: 1.1/35/59/74 Chest x-ray, 11/11/2024: Cardiomegaly without overt failure Chest x-ray, 11/12/2024: Cardiomegaly with pulmonary congestion and edema. Superimposed pneumonia cannot be excluded CT head, 11/10/2024: No intracranial hemorrhage .Right frontal approach ventriculostomy catheter with the ventricles being significantly decompressed. Left frontoparietal encephalomalacia. vital signs Vital Sign Date Time Temp Pulse Resp B/P (MAP) Pulse Ox O2 Delivery O2 Flow Rate FiO2 11/26/24 19:20 56 18 99 11/26/24 19:10 Trach Collar 6.0 11/26/24 19:10 28 28 11/26/24 17:00 97.3 132/65 (87) 97.3 Total Intake and Output 11/25/24 11/25/24 11/26/24 15:00 23:00 07:00 Intake Total 300 ml 427 ml 250 ml Output Total 1400 ml Balance 300 ml -973 ml 250 ml medications Current Medications Medications Dose Ordered Sig/Ata Route Start Time Stop Time Status Last Admin Dose Admin Levetiracetam 1,000 mg BID GT 11/09/24 22:00 11/26/24 21:24 1,000 MG Pantoprazole Sodium 40 mg DAILY IV 11/10/24 10:00 11/26/24 10:16 40 MG Acetaminophen 650 mg Q6HP PRN GT 11/09/24 21:30 11/12/24 03:32 650 MG Levalbuterol HCl 0.625 mg Q6HR NEB 11/10/24 00:00 11/26/24 19:10 0.625 MG Ipratropium [place] 0.5 mg Q6HR NEB 11/10/24 00:00 11/26/24 19:10 0.5 MG Acetylcysteine 200 mg Q6HR NEB 11/10/24 00:00 11/26/24 19:10 200 MG Lacosamide 150 mg BID GT 11/10/24 10:00 11/26/24 21:25 150 MG Lorazepam 1 mg Q5MINP PRN IV 11/10/24 15:30 11/11/24 13:53 1 MG Enteral Nutritional Formula 1,000 ml 30ML/HR GT 11/19/24 18:30 11/25/24 06:34 1,000 ML Baclofen 20 mg Q6HR GT 11/20/24 12:00 11/26/24 15:41 20 MG Methylprednisolone Sodium Succinate 40 mg DAILY IV 11/21/24 16:30 11/26/24 10:16 40 MG Enoxaparin Sodium 40 mg DAILY SC 11/22/24 16:00 11/26/24 10:16 40 MG Gentamicin Sulfate 0 ml @ 0 mls/hr PER PHARMACY IV 11/26/24 15:45 Gentamicin Sulfate 80 mg/ Dextrose 102 ml @ 100 mls/hr Q8H IV 11/26/24 18:00 11/26/24 18:00 100 MLS/HR Piperacillin Sod/ Tazobactam Sod 100 ml @ 25 mls/hr Q6HR IV 11/27/24 00:00 Cancel Ceftolozane/ Tazobactam 3 gm/ Dextrose 100 ml @ 100 mls/hr Q8H IV 11/26/24 20:00 11/26/24 20:50 100 MLS/HR objective General: the patient is well developed and nourished. No acute distress. MENTAL STATUS: Subjective SPEECH, LANGUAGE, HIGHER CORTICAL FUNCTION: He does not vocalize/status post tracheostomy CRANIAL NERVES: Pupils are equal, round and reactive. EOMs full and conjugate. Facial sensation intact in all three divisions bilaterally. Mandibular strength intact. Facial muscles symmetrical and strength intact. SENSATION: Responsive to touch stimuli MOTOR: Increased tone in the upper and lower extremity. Diffuse muscle atrophy. No fasciculations. No abnormal movements or posturing. No spontaneous movement in the extremities REFLEXES: Deep tendon reflexes are diffusely increased, with clonus in the upper extremities, bilateral ankles. Upgoing toes in both feet CEREBELLAR/COORDINATION: Deferred GAIT/STATION: deferred. laboratory and microbiology Laboratory Tests 11/26/24 06:23 11/24/24 05:43 Test 11/24/24 05:43 Range/Units Serum Glucose 94 74-106 mg/dL Problem List Fever, ALOC with elevated WBC, protein Partially treated meningitis Aseptic meningitis Seizure breakthrough, fever, to rule out meningitis Generalized tonic-clonic seizure secondary to traumatic brain injury Chronic traumatic brain injury status post craniotomy, SPIRAL WINDER shunt ? 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 Keppra 1000 mg b.i.d. Baclofen 20 mg q.i.d. Ativan for seizure breakthrough DVT prophylaxis GI prophylaxis More recommendation per clinical course This medical document was created using an electronic medical record system with [employer] dictation system. Although this document has been carefully reviewed, there may still be some phonetic and typographical errors. These areas are purely typographical due to imperfections of the software programs, and do not reflect any compromise in the patient's medical care. Prognosis poor Dietary Evaluation Review Comments: Nutrition recommendation 1) TF Jevity 1.2Cal @ 60ml/hr. Start @ 20ml/hr, increase 10ml/hr Q4H until goal is reached. TF @ goal volume provides 1728 kcal (100% energy needs), 80gm protein (100% protein needs), 1162ml free water. 2) Water flush 100ml Q4H 3) Monitor NPO status, TF tolerance, lab values, wt trend, I/O Expected Outcomes/Goals: To meet >75% estimated needs Fu 2-3 days Plan discussed with: Other AGNIESZKA ESPINOZA MD Nov 26, 2024 22:22
[2024-11-27] VITALS (16 sets, daily range): BP systolic 98–115; BP diastolic 42–53; PULSE 49–71; RESP 16–20; TEMP 98–98.9; O2SAT 97–100
[2024-11-27] MEDS ORDERED: PIPERACILLIN-TAZOB 3.375GM 100 ML IV SCH
[2024-11-27] MEDS ORDERED: ERTAPENEM SOD INJ 1 GM in SODIUM CHL 0.9% 50 ML IV SCH (10:00)
--- NOTE | 2024-11-27 18:40 | DVHPNRES ---
Progress Note Date Seen: Nov 27, 2024 Resident Creating Document: FLAKO WOODSON RESIDENT Has the PT tested + for MRSA If YES, has PT been informed?: No Medical Necessity Reason Pt with a Central, PICC or Fol: Yes The following are medically ne: Willis Catheter Reason for willis catheter: Strict I&O Subjective Review of Systems Patient seen and examined at bedside. Patient is nonverbal at baseline, could not provide review of system. Patient is on 6L oxygen, s/p tracheostomy. Initially plan was to sent the patient to LTAC but family wants to take the patient home. Recent respiratory culture revealed ESBL E coli and psedomonas resistant to meropenem. ID was on board and recommended IV Zerbaxa 3 g Q 8 hours and IV gentamicin 80 mg Q 8 hours. Objective vital signs Vital Sign Date Time Temp Pulse Resp B/P (MAP) Pulse Ox O2 Delivery O2 Flow Rate FiO2 11/27/24 16:33 98.4 56 16 101/50 (67) 97 98.4 11/27/24 11:31 Trach Collar 6 28 28 Total Intake and Output 11/26/24 11/26/24 11/27/24 15:00 23:00 07:00 Intake Total 50 ml 116 ml 202 ml Output Total 500 ml Balance 50 ml -384 ml 202 ml medications Current Medications Medications Dose Ordered Sig/Ata Route Start Time Stop Time Status Last Admin Dose Admin Levetiracetam 1,000 mg BID GT 11/09/24 22:00 11/27/24 10:46 1,000 MG Pantoprazole Sodium 40 mg DAILY IV 11/10/24 10:00 11/27/24 10:46 40 MG Acetaminophen 650 mg Q6HP PRN GT 11/09/24 21:30 11/12/24 03:32 650 MG Levalbuterol HCl 0.625 mg Q6HR NEB 11/10/24 00:00 11/27/24 11:31 0.625 MG Ipratropium [place] 0.5 mg Q6HR NEB 11/10/24 00:00 11/27/24 11:31 0.5 MG Acetylcysteine 200 mg Q6HR NEB 11/10/24 00:00 11/27/24 11:31 200 MG Lacosamide 150 mg BID GT 11/10/24 10:00 11/27/24 10:47 150 MG Lorazepam 1 mg Q5MINP PRN IV 11/10/24 15:30 11/11/24 13:53 1 MG Enteral Nutritional Formula 1,000 ml 30ML/HR GT 11/19/24 18:30 11/25/24 06:34 1,000 ML Baclofen 20 mg Q6HR GT 11/20/24 12:00 11/27/24 14:06 20 MG Methylprednisolone Sodium Succinate 40 mg DAILY IV 11/21/24 16:30 11/27/24 10:46 40 MG Enoxaparin Sodium 40 mg DAILY SC 11/22/24 16:00 11/27/24 10:45 40 MG Gentamicin Sulfate 0 ml @ 0 mls/hr PER PHARMACY IV 11/26/24 15:45 Gentamicin Sulfate 80 mg/ Dextrose 102 ml @ 100 mls/hr Q8H IV 11/26/24 18:00 11/27/24 10:40 100 MLS/HR Piperacillin Sod/ Tazobactam Sod 100 ml @ 25 mls/hr Q6HR IV 11/27/24 00:00 Cancel Ceftolozane/ Tazobactam 3 gm/ Dextrose 100 ml @ 100 mls/hr Q8H IV 11/26/24 20:00 11/27/24 14:06 100 MLS/HR Examination Examination Gen - no pallor, no icterus, no cyanosis, no clubbing, no LAD, Skin - Patients skin is warm and dry. generalized rash HEENT - status post cranial surgery with a left hemicranium, moist mucous membranes, trach cannula in place Neck - no LAD, no JVD Pulmonary - B/L course rales heard, no wheezing, no stridor. cardiovascular - regular S1,S2 heard, left lower sternal border systolic murmur heard. peripheral pulses normal radial 2+, pedal 2+. capillary refill normal <2 secs. GI - soft abdomen. no hepatosplenomegaly. Bowel sounds normoactive, peg tube in place Neurological - patient is nonverbal, quadriplegic, spontaneous eye opening, responds to mother on verbal command, clonus laboratory and microbiology Laboratory Tests 11/26/24 06:23 11/24/24 05:43 Test 11/24/24 05:43 Range/Units Serum Glucose 94 74-106 mg/dL Microbiology Date/Time Source Procedure Growth Status 11/20/24 16:55 Bronchial Washings Gram Stain - Final Resulted 11/20/24 16:55 Respiratory Culture - Preliminary Escherichia coli - ESBL Pseudomonas aeruginosa Resulted 11/12/24 12:55 Cerebral Spinal Fluid Gram Stain - Final Complete 11/12/24 12:55 Cerebral Spinal Fluid CSF Culture & Gram Stain (Tube 2) M - Final Complete 11/11/24 08:08 Nose MRSA Screen - Final Complete 11/10/24 12:10 Voided Urine Urine Culture - Final Complete 11/09/24 22:14 Blood Blood Culture - Final NO GROWTH AFTER 5 DAYS OF INCUBATION. Complete Labs and/or images reviewed: Labs reviewed by me, Image(s) reviewed by me Problem List/Assessment/Plan Problem List/Assessment/Plan Assessment and Plan: Acute metabolic encephalopathy due to Sepsis Seizure disorder S/p traumatic brain injury S/p ventriculoperitoneal shunt Quadriplegic Possible aseptic meningitis, s/p LP IV fluids given - Lorazepam PRN - on Keppra 1000 mg b.i.d. - lacosamide 150 mg b.i.d. Acute on chronic hypoxic respiratory failure Probable aspiration pneumonia due to gram +/- bacteria Sepsis likely due to pneumonia s/p tracheostomy S/P bronchoscopy - chest x-ray shows right lower lobe opacity, bibasilar atelectasis - duo nebs q.6 hours - acetylcysteine - MRSA nares positive and respiratory culture showed Pseudomonas, ESBL, E.coli - IV Zerbaxa 3gm Q 8 hours and IV gentamicin 80 mg Q 8 hours - blood culture negative H/o endocarditis(in 2013) - blood cultures negative - echo: no severe valve abnormalities noted s/p gastrostomy continue tube feedings Enoxaparin [place] PUD prophylaxis: Protonix Plan discussed with Dr. Man Plan discussed with: Other (Mom , RN) My Orders My Orders Orders - FLAKO WOODSON RESIDENT Procedure Category Date Status Time * Pan Reclaim Processor CONS 11/27/24 Transmitted Consult 11:10 Gentamycin, Trough LAB 11/27/24 In Process 17:00 Discharge DISCHARGE 11/27/24 Transmitted 17:18 Dietary Evaluation Review Comments: Nutrition recommendation 1) TF Jevity 1.2Cal @ 60ml/hr. Start @ 20ml/hr, increase 10ml/hr Q4H until goal is reached. TF @ goal volume provides 1728 kcal (100% energy needs), 80gm protein (100% protein needs), 1162ml free water. 2) Water flush 100ml Q4H 3) Monitor NPO status, TF tolerance, lab values, wt trend, I/O Expected Outcomes/Goals: To meet >75% estimated needs Fu 2-3 days Date of Service: Nov 27, 2024 Billing Provider: ELMER MAN MD Common Visit Codes: [id number] INP/OBS CARE(HIGH) FLAKO WOODSON RESIDENT Nov 27, 2024 18:40 ELMER MAN MD Nov 28, 2024 12:29
--- NOTE | 2024-11-27 21:00 | DVHPN2 ---
Consult Progress Note Date Seen: Nov 24, 2024 Subjective Patient reports: Other (no signs of infection . has come down to 7 liters trach collar ) Objective vital signs Vital Sign Date Time Temp Pulse Resp B/P (MAP) Pulse Ox O2 Delivery O2 Flow Rate FiO2 11/27/24 19:24 71 18 98 11/27/24 19:14 T-piece 6 28 Cool Aerosol 28 11/27/24 16:33 98.4 101/50 (67) 98.4 Total Intake and Output 11/26/24 11/26/24 11/27/24 15:00 23:00 07:00 Intake Total 50 ml 116 ml 202 ml Output Total 500 ml Balance 50 ml -384 ml 202 ml medications Current Medications Medications Dose Ordered Sig/Ata Route Start Time Stop Time Status Last Admin Dose Admin Levetiracetam 1,000 mg BID GT 11/09/24 22:00 11/27/24 10:46 1,000 MG Pantoprazole Sodium 40 mg DAILY IV 11/10/24 10:00 11/27/24 10:46 40 MG Acetaminophen 650 mg Q6HP PRN GT 11/09/24 21:30 11/12/24 03:32 650 MG Levalbuterol HCl 0.625 mg Q6HR NEB 11/10/24 00:00 11/27/24 19:14 0.625 MG Ipratropium [place] 0.5 mg Q6HR NEB 11/10/24 00:00 11/27/24 19:14 0.5 MG Acetylcysteine 200 mg Q6HR NEB 11/10/24 00:00 11/27/24 19:14 200 MG Lacosamide 150 mg BID GT 11/10/24 10:00 11/27/24 10:47 150 MG Lorazepam 1 mg Q5MINP PRN IV 11/10/24 15:30 11/11/24 13:53 1 MG Enteral Nutritional Formula 1,000 ml 30ML/HR GT 11/19/24 18:30 11/25/24 06:34 1,000 ML Baclofen 20 mg Q6HR GT 11/20/24 12:00 11/27/24 18:50 20 MG Methylprednisolone Sodium Succinate 40 mg DAILY IV 11/21/24 16:30 11/27/24 10:46 40 MG Enoxaparin Sodium 40 mg DAILY SC 11/22/24 16:00 11/27/24 10:45 40 MG Gentamicin Sulfate 0 ml @ 0 mls/hr PER PHARMACY IV 11/26/24 15:45 Gentamicin Sulfate 80 mg/ Dextrose 102 ml @ 100 mls/hr Q8H IV 11/26/24 18:00 11/27/24 18:51 100 MLS/HR Piperacillin Sod/ Tazobactam Sod 100 ml @ 25 mls/hr Q6HR IV 11/27/24 00:00 Cancel Ceftolozane/ Tazobactam 3 gm/ Dextrose 100 ml @ 100 mls/hr Q8H IV 11/26/24 20:00 11/27/24 20:16 100 MLS/HR laboratory and microbiology Laboratory Tests 11/26/24 06:23 11/24/24 05:43 Test 11/24/24 05:43 Range/Units Serum Glucose 94 74-106 mg/dL Problem List/Assessment/Plan Problems(with codes): (1) Status post seizure (2) Traumatic brain injury (3) Aspiration into airway (4) Sepsis (5) Metabolic encephalopathy Problem List/Assessment/Plan Assessment Patient is a 49 year old male with a past medical history of a traumatic brain injusry on 09/11/2013 . endocarditis , ceder disorder and trach , was brought in with labored breathing a fever . hes had recurrent hospitalizations , was at a [facility] when he started to have labored breathing . febrile episode . He was recently discharged home but was not getting additional care . patient was starting to require supplemental oxygen and got up to 8-10 liters through trach tube . whitecount is 17.2 . trach cultures grew astonita bacterbomie in the past , pseudomonas . patient has a lumbar puncture done . concern for altered mental status and has a rash after dose of vancomycin and zosyn . History of cranial surgery with ventricular peritoneal shunt. Patient currently has SOB , responding to simple questions but otherwise nonverbal however this is his baseline . has a rash . chest xray showed low lung volumes with possible bibasilar atelectasis. low overall suspicion for meningitis at this time 11/13: rash has significantly improved , still elevated whitecount of 17.2 and on 8 liters trach collar . patient does not use oxygen at home per . growing pseudomonas and group g strep on respiratory cultures 11/17: on 8 liters trach collar . planned for bedside bronchoscopy , respiratory cultures are finalizing . CSF PCR herpes are negative . mentation and breathing has significantly improved . rash has resolved 11/18: awaiting bronchoscopy procedure . cultures have finalized without growth . 11/19: unable to get bronch yesterday as quality assurance lead was unavailable . whitecount is 19.3 11/20: S/P bronchoscopy and found no prelant secretions in bilateral lower lobes loosened up . no endobronchial lesions , inflamed and easily friable . samples sent for gram stain and culture . has shown mild opacities bilaterally but no clear consolidations 11/21: no increased sputum production after bronch , 8 liters trach collar , whitecount is slowly coming down 11/22: no SOB or crackles in the lungs or irritation around trach site 11/23: patient appears minimally responsive to antibiotics thus far and no clear signs of pneumonia 11/24: on methalpred likley contributing to leukocytosis . growing pseudomonas and ESBL e coli on bronch cultures Plan : - continue meropenum - f/u on cultures - recommend chest pts to improve atelectasis - f/u on speciation of mallroie - consider diuresis - f/u on gram stain and culture - check EKG to see if patients has developed any QTC prolongation - empirically cover for MRSA until cultures are finalized - continue levofloxacin - less likely thierry syndrome Plan discussed with: Other Dietary Evaluation Review Comments: Nutrition recommendation 1) TF Jevity 1.2Cal @ 60ml/hr. Start @ 20ml/hr, increase 10ml/hr Q4H until goal is reached. TF @ goal volume provides 1728 kcal (100% energy needs), 80gm protein (100% protein needs), 1162ml free water. 2) Water flush 100ml Q4H 3) Monitor NPO status, TF tolerance, lab values, wt trend, I/O Expected Outcomes/Goals: To meet >75% estimated needs Fu 2-3 days EDGARD JOHNSON MD Nov 27, 2024 21:00
--- NOTE | 2024-11-27 21:00 | DVHPN2 ---
Consult Progress Note Date Seen: Nov 23, 2024 Subjective Patient reports: Other (QTC is not prolonged on EKG , no diarrhea , 8 liters trach and tolerating tube feeds ) Objective vital signs Vital Sign Date Time Temp Pulse Resp B/P (MAP) Pulse Ox O2 Delivery O2 Flow Rate FiO2 11/27/24 19:24 71 18 98 11/27/24 19:14 T-piece 6 28 Cool Aerosol 28 11/27/24 16:33 98.4 101/50 (67) 98.4 Total Intake and Output 11/26/24 11/26/24 11/27/24 15:00 23:00 07:00 Intake Total 50 ml 116 ml 202 ml Output Total 500 ml Balance 50 ml -384 ml 202 ml medications Current Medications Medications Dose Ordered Sig/Ata Route Start Time Stop Time Status Last Admin Dose Admin Levetiracetam 1,000 mg BID GT 11/09/24 22:00 11/27/24 10:46 1,000 MG Pantoprazole Sodium 40 mg DAILY IV 11/10/24 10:00 11/27/24 10:46 40 MG Acetaminophen 650 mg Q6HP PRN GT 11/09/24 21:30 11/12/24 03:32 650 MG Levalbuterol HCl 0.625 mg Q6HR NEB 11/10/24 00:00 11/27/24 19:14 0.625 MG Ipratropium [place] 0.5 mg Q6HR NEB 11/10/24 00:00 11/27/24 19:14 0.5 MG Acetylcysteine 200 mg Q6HR NEB 11/10/24 00:00 11/27/24 19:14 200 MG Lacosamide 150 mg BID GT 11/10/24 10:00 11/27/24 10:47 150 MG Lorazepam 1 mg Q5MINP PRN IV 11/10/24 15:30 11/11/24 13:53 1 MG Enteral Nutritional Formula 1,000 ml 30ML/HR GT 11/19/24 18:30 11/25/24 06:34 1,000 ML Baclofen 20 mg Q6HR GT 11/20/24 12:00 11/27/24 18:50 20 MG Methylprednisolone Sodium Succinate 40 mg DAILY IV 11/21/24 16:30 11/27/24 10:46 40 MG Enoxaparin Sodium 40 mg DAILY SC 11/22/24 16:00 11/27/24 10:45 40 MG Gentamicin Sulfate 0 ml @ 0 mls/hr PER PHARMACY IV 11/26/24 15:45 Gentamicin Sulfate 80 mg/ Dextrose 102 ml @ 100 mls/hr Q8H IV 11/26/24 18:00 11/27/24 18:51 100 MLS/HR Piperacillin Sod/ Tazobactam Sod 100 ml @ 25 mls/hr Q6HR IV 11/27/24 00:00 Cancel Ceftolozane/ Tazobactam 3 gm/ Dextrose 100 ml @ 100 mls/hr Q8H IV 11/26/24 20:00 11/27/24 20:16 100 MLS/HR laboratory and microbiology Laboratory Tests 11/26/24 06:23 11/24/24 05:43 Test 11/24/24 05:43 Range/Units Serum Glucose 94 74-106 mg/dL Problem List/Assessment/Plan Problems(with codes): (1) Status post seizure (2) Traumatic brain injury (3) Aspiration into airway (4) Sepsis (5) Metabolic encephalopathy Problem List/Assessment/Plan Assessment Patient is a 49 year old male with a past medical history of a traumatic brain injusry on 09/11/2013 . endocarditis , ceder disorder and trach , was brought in with labored breathing a fever . hes had recurrent hospitalizations , was at a shelter when he started to have labored breathing . febrile episode . He was recently discharged home but was not getting additional care . patient was starting to require supplemental oxygen and got up to 8-10 liters through trach tube . whitecount is 17.2 . trach cultures grew astonita bacterbomie in the past , pseudomonas . patient has a lumbar puncture done . concern for altered mental status and has a rash after dose of vancomycin and zosyn . History of cranial surgery with ventricular peritoneal shunt. Patient currently has SOB , responding to simple questions but otherwise nonverbal however this is his baseline . has a rash . chest xray showed low lung volumes with possible bibasilar atelectasis. low overall suspicion for meningitis at this time 11/13: rash has significantly improved , still elevated whitecount of 17.2 and on 8 liters trach collar . patient does not use oxygen at home per . growing pseudomonas and group g strep on respiratory cultures 11/17: on 8 liters trach collar . planned for bedside bronchoscopy , respiratory cultures are finalizing . CSF PCR herpes are negative . mentation and breathing has significantly improved . rash has resolved 11/18: awaiting bronchoscopy procedure . cultures have finalized without growth . 11/19: unable to get bronch yesterday as warehouse logistics manager was unavailable . whitecount is 19.3 11/20: S/P bronchoscopy and found no prelant secretions in bilateral lower lobes loosened up . no endobronchial lesions , inflamed and easily friable . samples sent for gram stain and culture . has shown mild opacities bilaterally but no clear consolidations 11/21: no increased sputum production after bronch , 8 liters trach collar , whitecount is slowly coming down 11/22: no SOB or crackles in the lungs or irritation around trach site 11/23: patient appears minimally responsive to antibiotics thus far and no clear signs of pneumonia Plan : - continue meropenum - f/u on cultures - recommend chest pts to improve atelectasis - f/u on speciation of mallorie - consider diuresis - f/u on gram stain and culture - check EKG to see if patients has developed any QTC prolongation - empirically cover for MRSA until cultures are finalized - continue levofloxacin - less likely thierry syndrome Plan discussed with: Other Dietary Evaluation Review Comments: Nutrition recommendation 1) TF Jevity 1.2Cal @ 60ml/hr. Start @ 20ml/hr, increase 10ml/hr Q4H until goal is reached. TF @ goal volume provides 1728 kcal (100% energy needs), 80gm protein (100% protein needs), 1162ml free water. 2) Water flush 100ml Q4H 3) Monitor NPO status, TF tolerance, lab values, wt trend, I/O Expected Outcomes/Goals: To meet >75% estimated needs Fu 2-3 days EDGARD JOHNSON MD Nov 27, 2024 21:00
--- NOTE | 2024-11-27 21:00 | DVHPN2 ---
Consult Progress Note Date Seen: Nov 22, 2024 Subjective Patient reports: Other (remains on 8 liters trach collar , gram negative mallorie growing concerning for resisten organism ) Objective vital signs Vital Sign Date Time Temp Pulse Resp B/P (MAP) Pulse Ox O2 Delivery O2 Flow Rate FiO2 11/27/24 19:24 71 18 98 11/27/24 19:14 T-piece 6 28 Cool Aerosol 28 11/27/24 16:33 98.4 101/50 (67) 98.4 Total Intake and Output 11/26/24 11/26/24 11/27/24 15:00 23:00 07:00 Intake Total 50 ml 116 ml 202 ml Output Total 500 ml Balance 50 ml -384 ml 202 ml medications Current Medications Medications Dose Ordered Sig/Ata Route Start Time Stop Time Status Last Admin Dose Admin Levetiracetam 1,000 mg BID GT 11/09/24 22:00 11/27/24 10:46 1,000 MG Pantoprazole Sodium 40 mg DAILY IV 11/10/24 10:00 11/27/24 10:46 40 MG Acetaminophen 650 mg Q6HP PRN GT 11/09/24 21:30 11/12/24 03:32 650 MG Levalbuterol HCl 0.625 mg Q6HR NEB 11/10/24 00:00 11/27/24 19:14 0.625 MG Ipratropium [place] 0.5 mg Q6HR NEB 11/10/24 00:00 11/27/24 19:14 0.5 MG Acetylcysteine 200 mg Q6HR NEB 11/10/24 00:00 11/27/24 19:14 200 MG Lacosamide 150 mg BID GT 11/10/24 10:00 11/27/24 10:47 150 MG Lorazepam 1 mg Q5MINP PRN IV 11/10/24 15:30 11/11/24 13:53 1 MG Enteral Nutritional Formula 1,000 ml 30ML/HR GT 11/19/24 18:30 11/25/24 06:34 1,000 ML Baclofen 20 mg Q6HR GT 11/20/24 12:00 11/27/24 18:50 20 MG Methylprednisolone Sodium Succinate 40 mg DAILY IV 11/21/24 16:30 11/27/24 10:46 40 MG Enoxaparin Sodium 40 mg DAILY SC 11/22/24 16:00 11/27/24 10:45 40 MG Gentamicin Sulfate 0 ml @ 0 mls/hr PER PHARMACY IV 11/26/24 15:45 Gentamicin Sulfate 80 mg/ Dextrose 102 ml @ 100 mls/hr Q8H IV 11/26/24 18:00 11/27/24 18:51 100 MLS/HR Piperacillin Sod/ Tazobactam Sod 100 ml @ 25 mls/hr Q6HR IV 11/27/24 00:00 Cancel Ceftolozane/ Tazobactam 3 gm/ Dextrose 100 ml @ 100 mls/hr Q8H IV 11/26/24 20:00 11/27/24 20:16 100 MLS/HR laboratory and microbiology Laboratory Tests 11/26/24 06:23 11/24/24 05:43 Test 11/24/24 05:43 Range/Units Serum Glucose 94 74-106 mg/dL Problem List/Assessment/Plan Problems(with codes): (1) Status post seizure (2) Sepsis (3) Metabolic encephalopathy (4) Traumatic brain injury (5) Aspiration into airway Problem List/Assessment/Plan Assessment Patient is a 49 year old male with a past medical history of a traumatic brain injusry on 09/11/2013 . endocarditis , ceder disorder and trach , was brought in with labored breathing a fever . hes had recurrent hospitalizations , was at a [facility] when he started to have labored breathing . febrile episode . He was recently discharged home but was not getting additional care . patient was starting to require supplemental oxygen and got up to 8-10 liters through trach tube . whitecount is 17.2 . trach cultures grew astonita bacterbomie in the past , pseudomonas . patient has a lumbar puncture done . concern for altered mental status and has a rash after dose of vancomycin and zosyn . History of cranial surgery with ventricular peritoneal shunt. Patient currently has SOB , responding to simple questions but otherwise nonverbal however this is his baseline . has a rash . chest xray showed low lung volumes with possible bibasilar atelectasis. low overall suspicion for meningitis at this time 11/13: rash has significantly improved , still elevated whitecount of 17.2 and on 8 liters trach collar . patient does not use oxygen at home per . growing pseudomonas and group g strep on respiratory cultures 11/17: on 8 liters trach collar . planned for bedside bronchoscopy , respiratory cultures are finalizing . CSF PCR herpes are negative . mentation and breathing has significantly improved . rash has resolved 11/18: awaiting bronchoscopy procedure . cultures have finalized without growth . 11/19: unable to get bronch yesterday as tank furnace operator was unavailable . whitecount is 19.3 11/20: S/P bronchoscopy and found no prelant secretions in bilateral lower lobes loosened up . no endobronchial lesions , inflamed and easily friable . samples sent for gram stain and culture . has shown mild opacities bilaterally but no clear consolidations 11/21: no increased sputum production after bronch , 8 liters trach collar , whitecount is slowly coming down 11/22: no SOB or crackles in the lungs or irritation around trach site Plan : - agree with switch to meropenum - stop vancomycin - f/u on speciation of mallorie - consider diuresis - f/u on gram stain and culture - check EKG to see if patients has developed any QTC prolongation - empirically cover for MRSA until cultures are finalized - continue vancomycin and levofloxacin - less likely thierry syndrome Plan discussed with: Other Dietary Evaluation Review Comments: Nutrition recommendation 1) TF Jevity 1.2Cal @ 60ml/hr. Start @ 20ml/hr, increase 10ml/hr Q4H until goal is reached. TF @ goal volume provides 1728 kcal (100% energy needs), 80gm protein (100% protein needs), 1162ml free water. 2) Water flush 100ml Q4H 3) Monitor NPO status, TF tolerance, lab values, wt trend, I/O Expected Outcomes/Goals: To meet >75% estimated needs Fu 2-3 days EDGARD JOHNSON MD Nov 27, 2024 21:00
--- NOTE | 2024-11-27 21:00 | DVHPN2 ---
Consult Progress Note Date Seen: Nov 25, 2024 Subjective Patient reports: Other (down to 6 liters , rash in undercontrol , remains bedbound ) Objective vital signs Vital Sign Date Time Temp Pulse Resp B/P (MAP) Pulse Ox O2 Delivery O2 Flow Rate FiO2 11/27/24 19:24 71 18 98 11/27/24 19:14 T-piece 6 28 Cool Aerosol 28 11/27/24 16:33 98.4 101/50 (67) 98.4 Total Intake and Output 11/26/24 11/26/24 11/27/24 15:00 23:00 07:00 Intake Total 50 ml 116 ml 202 ml Output Total 500 ml Balance 50 ml -384 ml 202 ml medications Current Medications Medications Dose Ordered Sig/Ata Route Start Time Stop Time Status Last Admin Dose Admin Levetiracetam 1,000 mg BID GT 11/09/24 22:00 11/27/24 10:46 1,000 MG Pantoprazole Sodium 40 mg DAILY IV 11/10/24 10:00 11/27/24 10:46 40 MG Acetaminophen 650 mg Q6HP PRN GT 11/09/24 21:30 11/12/24 03:32 650 MG Levalbuterol HCl 0.625 mg Q6HR NEB 11/10/24 00:00 11/27/24 19:14 0.625 MG Ipratropium [place] 0.5 mg Q6HR NEB 11/10/24 00:00 11/27/24 19:14 0.5 MG Acetylcysteine 200 mg Q6HR NEB 11/10/24 00:00 11/27/24 19:14 200 MG Lacosamide 150 mg BID GT 11/10/24 10:00 11/27/24 10:47 150 MG Lorazepam 1 mg Q5MINP PRN IV 11/10/24 15:30 11/11/24 13:53 1 MG Enteral Nutritional Formula 1,000 ml 30ML/HR GT 11/19/24 18:30 11/25/24 06:34 1,000 ML Baclofen 20 mg Q6HR GT 11/20/24 12:00 11/27/24 18:50 20 MG Methylprednisolone Sodium Succinate 40 mg DAILY IV 11/21/24 16:30 11/27/24 10:46 40 MG Enoxaparin Sodium 40 mg DAILY SC 11/22/24 16:00 11/27/24 10:45 40 MG Gentamicin Sulfate 0 ml @ 0 mls/hr PER PHARMACY IV 11/26/24 15:45 Gentamicin Sulfate 80 mg/ Dextrose 102 ml @ 100 mls/hr Q8H IV 11/26/24 18:00 11/27/24 18:51 100 MLS/HR Piperacillin Sod/ Tazobactam Sod 100 ml @ 25 mls/hr Q6HR IV 11/27/24 00:00 Cancel Ceftolozane/ Tazobactam 3 gm/ Dextrose 100 ml @ 100 mls/hr Q8H IV 11/26/24 20:00 11/27/24 20:16 100 MLS/HR laboratory and microbiology Laboratory Tests 11/26/24 06:23 11/24/24 05:43 Test 11/24/24 05:43 Range/Units Serum Glucose 94 74-106 mg/dL Problem List/Assessment/Plan Problems(with codes): (1) Metabolic encephalopathy (2) Sepsis (3) Aspiration into airway (4) Traumatic brain injury (5) Status post seizure Problem List/Assessment/Plan Assessment Patient is a 49 year old male with a past medical history of a traumatic brain injusry on 09/11/2013 . endocarditis , ceder disorder and trach , was brought in with labored breathing a fever . hes had recurrent hospitalizations , was at a longterm when he started to have labored breathing . febrile episode . He was recently discharged home but was not getting additional care . patient was starting to require supplemental oxygen and got up to 8-10 liters through trach tube . whitecount is 17.2 . trach cultures grew astonita bacterbomie in the past , pseudomonas . patient has a lumbar puncture done . concern for altered mental status and has a rash after dose of vancomycin and zosyn . History of cranial surgery with ventricular peritoneal shunt. Patient currently has SOB , responding to simple questions but otherwise nonverbal however this is his baseline . has a rash . chest xray showed low lung volumes with possible bibasilar atelectasis. low overall suspicion for meningitis at this time 11/13: rash has significantly improved , still elevated whitecount of 17.2 and on 8 liters trach collar . patient does not use oxygen at home per . growing pseudomonas and group g strep on respiratory cultures 11/17: on 8 liters trach collar . planned for bedside bronchoscopy , respiratory cultures are finalizing . CSF PCR herpes are negative . mentation and breathing has significantly improved . rash has resolved 11/18: awaiting bronchoscopy procedure . cultures have finalized without growth . 11/19: unable to get bronch yesterday as thinner sprayer was unavailable . whitecount is 19.3 11/20: S/P bronchoscopy and found no prelant secretions in bilateral lower lobes loosened up . no endobronchial lesions , inflamed and easily friable . samples sent for gram stain and culture . has shown mild opacities bilaterally but no clear consolidations 11/21: no increased sputum production after bronch , 8 liters trach collar , whitecount is slowly coming down 11/22: no SOB or crackles in the lungs or irritation around trach site 11/23: patient appears minimally responsive to antibiotics thus far and no clear signs of pneumonia 11/24: on methalpred likely contributing to leukocytosis . growing pseudomonas and ESBL e coli on bronch cultures 11/25: patient sensitivities are still pending Plan : - continue meropenum - f/u on cultures - recommend chest pts to improve atelectasis - f/u on speciation of mallorie - consider diuresis - f/u on gram stain and culture - check EKG to see if patients has developed any QTC prolongation - empirically cover for MRSA until cultures are finalized - continue levofloxacin - less likely thierry syndrome Plan discussed with: Other Dietary Evaluation Review Comments: Nutrition recommendation 1) TF Jevity 1.2Cal @ 60ml/hr. Start @ 20ml/hr, increase 10ml/hr Q4H until goal is reached. TF @ goal volume provides 1728 kcal (100% energy needs), 80gm protein (100% protein needs), 1162ml free water. 2) Water flush 100ml Q4H 3) Monitor NPO status, TF tolerance, lab values, wt trend, I/O Expected Outcomes/Goals: To meet >75% estimated needs Fu 2-3 days EDGARD JOHNSON MD Nov 27, 2024 21:00
--- NOTE | 2024-11-27 21:01 | DVHPN2 ---
Consult Progress Note Date Seen: Nov 27, 2024 Subjective Patient reports: Other (assessed for home health , stable on 5 liters trach collar . having some loose bowel movements ) Objective vital signs Vital Sign Date Time Temp Pulse Resp B/P (MAP) Pulse Ox O2 Delivery O2 Flow Rate FiO2 11/27/24 19:24 71 18 98 11/27/24 19:14 T-piece 6 28 Cool Aerosol 28 11/27/24 16:33 98.4 101/50 (67) 98.4 Total Intake and Output 11/26/24 11/26/24 11/27/24 15:00 23:00 07:00 Intake Total 50 ml 116 ml 202 ml Output Total 500 ml Balance 50 ml -384 ml 202 ml medications Current Medications Medications Dose Ordered Sig/Ata Route Start Time Stop Time Status Last Admin Dose Admin Levetiracetam 1,000 mg BID GT 11/09/24 22:00 11/27/24 10:46 1,000 MG Pantoprazole Sodium 40 mg DAILY IV 11/10/24 10:00 11/27/24 10:46 40 MG Acetaminophen 650 mg Q6HP PRN GT 11/09/24 21:30 11/12/24 03:32 650 MG Levalbuterol HCl 0.625 mg Q6HR NEB 11/10/24 00:00 11/27/24 19:14 0.625 MG Ipratropium [place] 0.5 mg Q6HR NEB 11/10/24 00:00 11/27/24 19:14 0.5 MG Acetylcysteine 200 mg Q6HR NEB 11/10/24 00:00 11/27/24 19:14 200 MG Lacosamide 150 mg BID GT 11/10/24 10:00 11/27/24 10:47 150 MG Lorazepam 1 mg Q5MINP PRN IV 11/10/24 15:30 11/11/24 13:53 1 MG Enteral Nutritional Formula 1,000 ml 30ML/HR GT 11/19/24 18:30 11/25/24 06:34 1,000 ML Baclofen 20 mg Q6HR GT 11/20/24 12:00 11/27/24 18:50 20 MG Methylprednisolone Sodium Succinate 40 mg DAILY IV 11/21/24 16:30 11/27/24 10:46 40 MG Enoxaparin Sodium 40 mg DAILY SC 11/22/24 16:00 7/3/25 10:45 40 MG Gentamicin Sulfate 0 ml @ 0 mls/hr PER PHARMACY IV 11/26/24 15:45 Gentamicin Sulfate 80 mg/ Dextrose 102 ml @ 100 mls/hr Q8H IV 11/26/24 18:00 11/27/24 18:51 100 MLS/HR Piperacillin Sod/ Tazobactam Sod 100 ml @ 25 mls/hr Q6HR IV 11/27/24 00:00 Cancel Ceftolozane/ Tazobactam 3 gm/ Dextrose 100 ml @ 100 mls/hr Q8H IV 11/26/24 20:00 11/27/24 20:16 100 MLS/HR laboratory and microbiology Laboratory Tests 11/26/24 06:23 11/24/24 05:43 Test 11/24/24 05:43 Range/Units Serum Glucose 94 74-106 mg/dL Problem List/Assessment/Plan Problems(with codes): (1) Status post seizure (2) Traumatic brain injury (3) Aspiration into airway (4) Sepsis (5) Metabolic encephalopathy Problem List/Assessment/Plan Assessment Patient is a 49 year old male with a past medical history of a traumatic brain injusry on 09/11/2013 . endocarditis , ceder disorder and trach , was brought in with labored breathing a fever . hes had recurrent hospitalizations , was at a [place] [facility] when he started to have labored breathing . febrile episode . He was recently discharged home but was not getting additional care . patient was starting to require supplemental oxygen and got up to 8-10 liters through trach tube . whitecount is 17.2 . trach cultures grew astonita bacterbomie in the past , pseudomonas . patient has a lumbar puncture done . concern for altered mental status and has a rash after dose of vancomycin and zosyn . History of cranial surgery with ventricular peritoneal shunt. Patient currently has SOB , responding to simple questions but otherwise nonverbal however this is his baseline . has a rash . chest xray showed low lung volumes with possible bibasilar atelectasis. low overall suspicion for meningitis at this time 11/13: rash has significantly improved , still elevated whitecount of 17.2 and on 8 liters trach collar . patient does not use oxygen at home per . growing pseudomonas and group g strep on respiratory cultures 11/17: on 8 liters trach collar . planned for bedside bronchoscopy , respiratory cultures are finalizing . CSF PCR herpes are negative . mentation and breathing has significantly improved . rash has resolved 11/18: awaiting bronchoscopy procedure . cultures have finalized without growth . 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 whitecount is 19.3 11/20: S/P bronchoscopy and found no prelant secretions in bilateral lower lobes loosened up . no endobronchial lesions , inflamed and easily friable . samples sent for gram stain and culture . has shown mild opacities bilaterally but no clear consolidations 11/21: no increased sputum production after bronch , 8 liters trach collar , whitecount is slowly coming down 11/22: no SOB or crackles in the lungs or irritation around trach site 11/23: patient appears minimally responsive to antibiotics thus far and no clear signs of pneumonia 11/24: on methalpred likely contributing to leukocytosis . growing pseudomonas and ESBL e coli on bronch cultures 11/25: patient sensitivities are still pending 11/26: growing MDRO pseudomas that is resistant to meropenum 11/27: doing well on antibioitc therapy , remains clinically stable . Plan : - no oral antibiotics would likely be available to patiet that would adequately treat both organisms seen on respiratory culture - watch renal function and side effects while on therapy - recommend 5-7 day coarse of zerbaxa to treat current infection in patient - plan to discontinue gentomycin in 24-48 hours if patient is stable and hypoxia does not worsen - f/u on cultures - recommend chest pts to improve atelectasis - f/u on speciation of mallorie - consider diuresis - f/u on gram stain and culture - check EKG to see if patients has developed any QTC prolongation - empirically cover for MRSA until cultures are finalized - continue levofloxacin - less likely thierry syndrome Plan discussed with: Other Dietary Evaluation Review Comments: Nutrition recommendation 1) TF Jevity 1.2Cal @ 60ml/hr. Start @ 20ml/hr, increase 10ml/hr Q4H until goal is reached. TF @ goal volume provides 1728 kcal (100% energy needs), 80gm protein (100% protein needs), 1162ml free water. 2) Water flush 100ml Q4H 3) Monitor NPO status, TF tolerance, lab values, wt trend, I/O Expected Outcomes/Goals: To meet >75% estimated needs Fu 2-3 days EDGARD JOHNSON MD Nov 27, 2024 21:01
--- NOTE | 2024-11-27 21:01 | DVHPN2 ---
Consult Progress Note Date Seen: Nov 26, 2024 Subjective Patient reports: Other (growing MDRO pseudomonas , remains on 5 liters trach but at times requires 8 . havign multiple bowel movements ) Objective vital signs Vital Sign Date Time Temp Pulse Resp B/P (MAP) Pulse Ox O2 Delivery O2 Flow Rate FiO2 11/27/24 19:24 71 18 98 11/27/24 19:14 T-piece 6 28 Cool Aerosol 28 11/27/24 16:33 98.4 101/50 (67) 98.4 Total Intake and Output 11/26/24 11/26/24 11/27/24 15:00 23:00 07:00 Intake Total 50 ml 116 ml 202 ml Output Total 500 ml Balance 50 ml -384 ml 202 ml medications Current Medications Medications Dose Ordered Sig/Ata Route Start Time Stop Time Status Last Admin Dose Admin Levetiracetam 1,000 mg BID GT 11/09/24 22:00 11/27/24 10:46 1,000 MG Pantoprazole Sodium 40 mg DAILY IV 11/10/24 10:00 11/27/24 10:46 40 MG Acetaminophen 650 mg Q6HP PRN GT 11/09/24 21:30 11/12/24 03:32 650 MG Levalbuterol HCl 0.625 mg Q6HR NEB 11/10/24 00:00 11/27/24 19:14 0.625 MG Ipratropium [place] 0.5 mg Q6HR NEB 11/10/24 00:00 11/27/24 19:14 0.5 MG Acetylcysteine 200 mg Q6HR NEB 11/10/24 00:00 11/27/24 19:14 200 MG Lacosamide 150 mg BID GT 11/10/24 10:00 11/27/24 10:47 150 MG Lorazepam 1 mg Q5MINP PRN IV 11/10/24 15:30 11/11/24 13:53 1 MG Enteral Nutritional Formula 1,000 ml 30ML/HR GT 11/19/24 18:30 11/25/24 06:34 1,000 ML Baclofen 20 mg Q6HR GT 11/20/24 12:00 11/27/24 18:50 20 MG Methylprednisolone Sodium Succinate 40 mg DAILY IV 11/21/24 16:30 11/27/24 10:46 40 MG Enoxaparin Sodium 40 mg DAILY SC 11/22/24 16:00 11/27/24 10:45 40 MG Gentamicin Sulfate 0 ml @ 0 mls/hr PER PHARMACY IV 11/26/24 15:45 Gentamicin Sulfate 80 mg/ Dextrose 102 ml @ 100 mls/hr Q8H IV 11/26/24 18:00 11/27/24 18:51 100 MLS/HR Piperacillin Sod/ Tazobactam Sod 100 ml @ 25 mls/hr Q6HR IV 11/27/24 00:00 Cancel Ceftolozane/ Tazobactam 3 gm/ Dextrose 100 ml @ 100 mls/hr Q8H IV 11/26/24 20:00 11/27/24 20:16 100 MLS/HR laboratory and microbiology Laboratory Tests 11/26/24 06:23 11/24/24 05:43 Test 11/24/24 05:43 Range/Units Serum Glucose 94 74-106 mg/dL Problem List/Assessment/Plan Problems(with codes): (1) Metabolic encephalopathy (2) Sepsis (3) Aspiration into airway (4) Traumatic brain injury (5) Status post seizure Problem List/Assessment/Plan Assessment Patient is a 49 year old male with a past medical history of a traumatic brain injusry on 09/11/2013 . endocarditis , ceder disorder and trach , was brought in with labored breathing a fever . hes had recurrent hospitalizations , [facility] when he started to have labored breathing . febrile episode . He was recently discharged home but was not getting additional care . patient was starting to require supplemental oxygen and got up to 8-10 liters through trach tube . whitecount is 17.2 . trach cultures grew astonita bacterbomie in the past , pseudomonas . patient has a lumbar puncture done . concern for altered mental status and has a rash after dose of vancomycin and zosyn . History of cranial surgery with ventricular peritoneal shunt. Patient currently has SOB , responding to simple questions but otherwise nonverbal however this is his baseline . has a rash . chest xray showed low lung volumes with possible bibasilar atelectasis. low overall suspicion for meningitis at this time 11/13: rash has significantly improved , still elevated whitecount of 17.2 and on 8 liters trach collar . patient does not use oxygen at home per . growing pseudomonas and group g strep on respiratory cultures 11/17: on 8 liters trach collar . planned for bedside bronchoscopy , respiratory cultures are finalizing . CSF PCR herpes are negative . mentation and breathing has significantly improved . rash has resolved 11/18: awaiting bronchoscopy procedure . cultures have finalized without growth . 11/19: unable to get bronch yesterday as [employer] was unavailable . whitecount is 19.3 11/20: S/P bronchoscopy and found no prelant secretions in bilateral lower lobes loosened up . no endobronchial lesions , inflamed and easily friable . samples sent for gram stain and culture . has shown mild opacities bilaterally but no clear consolidations 11/21: no increased sputum production after bronch , 8 liters trach collar , whitecount is slowly coming down 11/22: no SOB or crackles in the lungs or irritation around trach site 11/23: patient appears minimally responsive to antibiotics thus far and no clear signs of pneumonia 11/24: on methalpred likely contributing to leukocytosis . growing pseudomonas and ESBL e coli on bronch cultures 11/25: patient sensitivities are still pending 11/26: growing MDRO pseudomas that is resistant to meropenum Plan : - start zerbaxa - watch renal function and side effects while on therapy - likley require 5-7 day coarse of zerbaxa to treat current infection - continue gentamycin for now pending response to antibiotic therapy - Stop meropenum - f/u on cultures - recommend chest pts to improve atelectasis - f/u on speciation of mallorie - consider diuresis - f/u on gram stain and culture - check EKG to see if patients has developed any QTC prolongation - empirically cover for MRSA until cultures are finalized - continue levofloxacin - less likely thierry syndrome Plan discussed with: Other Dietary Evaluation Review Comments: Nutrition recommendation 1) TF Jevity 1.2Cal @ 60ml/hr. Start @ 20ml/hr, increase 10ml/hr Q4H until goal is reached. TF @ goal volume provides 1728 kcal (100% energy needs), 80gm protein (100% protein needs), 1162ml free water. 2) Water flush 100ml Q4H 3) Monitor NPO status, TF tolerance, lab values, wt trend, I/O Expected Outcomes/Goals: To meet >75% estimated needs Fu 2-3 days EDGARD JOHNSON MD Nov 27, 2024 21:00
[2024-11-28] VITALS (12 sets, daily range): BP systolic 110–132; BP diastolic 50–79; PULSE 60–80; RESP 16–96; TEMP 97.9–98.6; O2SAT 94–98
--- NOTE | 2024-11-28 16:20 | DVHPNRES ---
Progress Note Date Seen: Nov 28, 2024 Resident Creating Document: FLAKO WOODSON RESIDENT Has the PT tested + for MRSA If YES, has PT been informed?: No Medical Necessity Reason Pt with a Central, PICC or Fol: Yes The following are medically ne: Willis Catheter Reason for willis catheter: Strict I&O Subjective Review of Systems Patient was seen and examined at bedside. Patient is nonverbal at baseline, could not provide review of system. Patient is on 6L oxygen, s/p tracheostomy. Initially plan was to sent the patient to LTAC but family wants to take the patient home. Recent respiratory culture revealed ESBL E coli and pseudomonas resistant to meropenem. ID was on board and recommended IV Zerbaxa 3 g Q 8 hours and IV gentamicin 80 mg Q 8 hours. Patient is being discharged to home with home health for continuation of IV antibiotic Zerbaxa 3 gm , gentamicin 80 mg Q 8 hours for 14 days and advised to follow up with outpatient Infectious Disease in 2 weeks. Objective vital signs Vital Sign Date Time Temp Pulse Resp B/P (MAP) Pulse Ox O2 Delivery O2 Flow Rate FiO2 11/28/24 12:01 73 18 97 11/28/24 11:51 T-piece 6.0 11/28/24 11:51 28 28 11/28/24 05:00 97.9 112/56 (74) 97.9 Total Intake and Output 11/27/24 11/27/24 11/28/24 15:00 23:00 07:00 Intake Total 102 ml 302 ml 202 ml Balance 102 ml 302 ml 202 ml medications Current Medications Medications Dose Ordered Sig/Ata Route Start Time Stop Time Status Last Admin Dose Admin Levetiracetam 1,000 mg BID GT 11/09/24 22:00 11/28/24 09:44 1,000 MG Pantoprazole Sodium 40 mg DAILY IV 11/10/24 10:00 11/28/24 09:45 40 MG Acetaminophen 650 mg Q6HP PRN GT 11/09/24 21:30 11/12/24 03:32 650 MG Levalbuterol HCl 0.625 mg Q6HR NEB 11/10/24 00:00 11/28/24 11:51 0.625 MG Ipratropium [place] 0.5 mg Q6HR NEB 11/10/24 00:00 11/28/24 11:51 0.5 MG Acetylcysteine 200 mg Q6HR NEB 11/10/24 00:00 11/28/24 11:52 200 MG Lacosamide 150 mg BID GT 11/10/24 10:00 11/28/24 10:01 150 MG Lorazepam 1 mg Q5MINP PRN IV 11/10/24 15:30 11/11/24 13:53 1 MG Enteral Nutritional Formula 1,000 ml 30ML/HR GT 11/19/24 18:30 11/25/24 06:34 1,000 ML Baclofen 20 mg Q6HR GT 11/20/24 12:00 11/28/24 06:11 20 MG Methylprednisolone Sodium Succinate 40 mg DAILY IV 11/21/24 16:30 11/28/24 09:44 40 MG Enoxaparin Sodium 40 mg DAILY SC 11/22/24 16:00 11/28/24 09:44 40 MG Gentamicin Sulfate 0 ml @ 0 mls/hr PER PHARMACY IV 11/26/24 15:45 Cancel Piperacillin Sod/ Tazobactam Sod 100 ml @ 25 mls/hr Q6HR IV 11/27/24 00:00 Cancel Ceftolozane/ Tazobactam 3 gm/ Dextrose 100 ml @ 100 mls/hr Q8H IV 11/26/24 20:00 11/28/24 04:09 100 MLS/HR Examination Examination Gen - no pallor, no icterus, no cyanosis, no clubbing, no LAD, Skin - Patients skin is warm and dry. generalized rash HEENT - status post cranial surgery with a left hemicranium, moist mucous membranes, trach cannula in place Neck - no LAD, no JVD Pulmonary - B/L course rales heard, no wheezing, no stridor. cardiovascular - regular S1,S2 heard, left lower sternal border systolic murmur heard. peripheral pulses normal radial 2+, pedal 2+. capillary refill normal <2 secs. GI - soft abdomen. no hepatosplenomegaly. Bowel sounds normoactive, peg tube in place Neurological - patient is nonverbal, quadriplegic, spontaneous eye opening, responds to mother on verbal command, clonus laboratory and microbiology Laboratory Tests 11/26/24 06:23 11/24/24 05:43 Test 11/24/24 05:43 Range/Units Serum Glucose 94 74-106 mg/dL Microbiology Date/Time Source Procedure Growth Status 11/20/24 16:55 Bronchial Washings Gram Stain - Final Resulted 11/20/24 16:55 Respiratory Culture - Preliminary Escherichia coli - ESBL Pseudomonas aeruginosa Resulted 11/12/24 12:55 Cerebral Spinal Fluid Gram Stain - Final Complete 11/12/24 12:55 Cerebral Spinal Fluid CSF Culture & Gram Stain (Tube 2) M - Final Complete 11/11/24 08:08 Nose MRSA Screen - Final Complete 11/10/24 12:10 Voided Urine Urine Culture - Final Complete 11/09/24 22:14 Blood Blood Culture - Final NO GROWTH AFTER 5 DAYS OF INCUBATION. Complete Labs and/or images reviewed: Labs reviewed by me, Image(s) reviewed by me Problem List/Assessment/Plan Problem List/Assessment/Plan Assessment and Plan: Acute metabolic encephalopathy due to Sepsis Seizure disorder S/p traumatic brain injury S/p ventriculoperitoneal shunt Quadriplegic Possible aseptic meningitis, s/p LP IV fluids given - Lorazepam PRN - on Keppra 1000 mg b.i.d. - lacosamide 150 mg b.i.d. Acute on chronic hypoxic respiratory failure Probable aspiration pneumonia due to gram +/- bacteria Sepsis likely due to pneumonia s/p tracheostomy S/P bronchoscopy - chest x-ray shows right lower lobe opacity, bibasilar atelectasis - duo nebs q.6 hours - acetylcysteine - MRSA nares positive and respiratory culture showed Pseudomonas, ESBL, E.coli - IV Zerbaxa 3gm Q 8 hours and IV gentamicin 80 mg Q 8 hours - blood culture negative H/o endocarditis(in 2013) - blood cultures negative - echo: no severe valve abnormalities noted s/p gastrostomy continue tube feedings Enoxaparin SC PUD prophylaxis: Protonix Plan discussed with Dr. 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 Start @ 20ml/hr, increase 10ml/hr Q4H until goal is reached. TF @ goal volume provides 1728 kcal (100% energy needs), 80gm protein (100% protein needs), 1162ml free water. 2) Water flush 100ml Q4H 3) Monitor NPO status, TF tolerance, lab values, wt trend, I/O Expected Outcomes/Goals: To meet >75% estimated needs Fu 2-3 days Date of Service: Nov 28, 2024 Billing Provider: ELMER MAN MD Common Visit Codes: [id number] INP/OBS CARE(HIGH) FLAKO WOODSON RESIDENT Nov 28, 2024 16:20 ELMER MAN MD Nov 29, 2024 16:51
--- NOTE | 2024-11-30 17:38 | DVHPN2 ---
Consult Progress Note Date Seen: Nov 28, 2024 Subjective Patient reports: Feels better Objective vital signs Vital Sign Date Time Temp Pulse Resp B/P (MAP) Pulse Ox O2 Delivery O2 Flow Rate FiO2 11/28/24 13:00 98.0 71 16 132/79 (96) 94 98.0 11/28/24 11:51 T-piece 6.0 11/28/24 11:51 28 28 medications Current Medications Medications Dose Ordered Sig/Ata Route Start Time Stop Time Status Last Admin Dose Admin Gentamicin Sulfate 0 ml @ 0 mls/hr PER PHARMACY IV 11/26/24 15:45 Cancel Piperacillin Sod/ Tazobactam Sod 100 ml @ 25 mls/hr Q6HR IV 11/27/24 00:00 Cancel laboratory and microbiology Laboratory Tests 11/26/24 06:23 11/24/24 05:43 Test 11/24/24 05:43 Range/Units Serum Glucose 94 74-106 mg/dL Problem List/Assessment/Plan Problems(with codes): (1) Sepsis (2) Aspiration into airway (3) Metabolic encephalopathy Problem List/Assessment/Plan Assessment Patient is a 49 year old male with a past medical history of a traumatic brain injusry on 09/11/2013 . endocarditis , ceder disorder and trach , was brought in with labored breathing a fever . hes had recurrent hospitalizations , was at a senior living when he started to have labored breathing . febrile episode . He was recently discharged home but was not getting additional care . patient was starting to require supplemental oxygen and got up to 8-10 liters through trach tube . whitecount is 17.2 . trach cultures grew astonita bacterbomie in the past , pseudomonas . patient has a lumbar puncture done . concern for altered mental status and has a rash after dose of vancomycin and zosyn . History of cranial surgery with ventricular peritoneal shunt. Patient currently has SOB , responding to simple questions but otherwise nonverbal however this is his baseline . has a rash . chest xray showed low lung volumes with possible bibasilar atelectasis. low overall suspicion for meningitis at this time 11/13: rash has significantly improved , still elevated whitecount of 17.2 and on 8 liters trach collar . patient does not use oxygen at home per . growing pseudomonas and group g strep on respiratory cultures 11/17: on 8 liters trach collar . planned for bedside bronchoscopy , respiratory cultures are finalizing . CSF PCR herpes are negative . mentation and breathing has significantly improved . rash has resolved 11/18: awaiting bronchoscopy procedure . cultures have finalized without growth . 11/19: unable to get bronch yesterday as hospital account manager was unavailable . whitecount is 19.3 11/20: S/P bronchoscopy and found no prelant secretions in bilateral lower lobes loosened up . no endobronchial lesions , inflamed and easily friable . samples sent for gram stain and culture . has shown mild opacities bilaterally but no clear consolidations 11/21: no increased sputum production after bronch , 8 liters trach collar , whitecount is slowly coming down 11/22: no SOB or crackles in the lungs or irritation around trach site 11/23: patient appears minimally responsive to antibiotics thus far and no clear signs of pneumonia 11/24: on methalpred likely contributing to leukocytosis . growing pseudomonas and ESBL e coli on bronch cultures 11/25: patient sensitivities are still pending 11/26: growing MDRO pseudomas that is resistant to meropenum 11/27: doing well on antibioitc therapy , remains clinically stable . Plan : - no oral antibiotics would likely be available to patiet that would adequately treat both organisms seen on respiratory culture - watch renal function and side effects while on therapy - recommend 5-7 day coarse of zerbaxa to treat current infection in patient - plan to discontinue gentomycin in 24-48 hours if patient is stable and hypoxia does not worsen - f/u on cultures - recommend chest pts to improve atelectasis - f/u on speciation of mallorie - consider diuresis - f/u on gram stain and culture - check EKG to see if patients has developed any QTC prolongation - empirically cover for MRSA until cultures are finalized - continue levofloxacin - less likely thierry syndrome Plan discussed with: Patient Dietary Evaluation Review Comments: Nutrition recommendation 1) TF Jevity 1.2Cal @ 60ml/hr. Start @ 20ml/hr, increase 10ml/hr Q4H until goal is reached. TF @ goal volume provides 1728 kcal (100% energy needs), 80gm protein (100% protein needs), 1162ml free water. 2) Water flush 100ml Q4H 3) Monitor NPO status, TF tolerance, lab values, wt trend, I/O Expected Outcomes/Goals: To meet >75% estimated needs Fu 2-3 days EDGARD JOHNSON MD Nov 30, 2024 17:38
--- NOTE | 2024-12-05 16:12 | DVHPN2 ---
Consult Progress Note Objective medications Current Medications Medications Dose Ordered Sig/Ata Route Start Time Stop Time Status Last Admin Dose Admin Gentamicin Sulfate 0 ml @ 0 mls/hr PER PHARMACY IV 11/26/24 15:45 Cancel Piperacillin Sod/ Tazobactam Sod 100 ml @ 25 mls/hr Q6HR IV 11/27/24 00:00 Cancel laboratory and microbiology Laboratory Tests 11/26/24 06:23 11/24/24 05:43 Test 11/24/24 05:43 Range/Units Serum Glucose 94 74-106 mg/dL Problem List/Assessment/Plan Problem List/Assessment/Plan Assessment Patient is a 49 year old male with a past medical history of a traumatic brain injusry on 09/11/2013 . endocarditis , ceder disorder and trach , was brought in with labored breathing a fever . hes had recurrent hospitalizations , was at a senior care when he started to have labored breathing . febrile episode . He was recently discharged home but was not getting additional care . patient was starting to require supplemental oxygen and got up to 8-10 liters through trach tube . whitecount is 17.2 . trach cultures grew astonita bacterbomie in the past , pseudomonas . patient has a lumbar puncture done . concern for altered mental status and has a rash after dose of vancomycin and zosyn . History of cranial surgery with ventricular peritoneal shunt. Patient currently has SOB , responding to simple questions but otherwise nonverbal however this is his baseline . has a rash . chest xray showed low lung volumes with possible bibasilar atelectasis. low overall suspicion for meningitis at this time 11/13: rash has significantly improved , still elevated whitecount of 17.2 and on 8 liters trach collar . patient does not use oxygen at home per . growing pseudomonas and group g strep on respiratory cultures 11/17: on 8 liters trach collar . planned for bedside bronchoscopy , respiratory cultures are finalizing . CSF PCR herpes are negative . mentation and breathing has significantly improved . rash has resolved 11/18: awaiting bronchoscopy procedure . cultures have finalized without growth . 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 whitecount is 19.3 11/20: S/P bronchoscopy and found no prelant secretions in bilateral lower lobes loosened up . no endobronchial lesions , inflamed and easily friable . samples sent for gram stain and culture . has shown mild opacities bilaterally but no clear consolidations 11/21: no increased sputum production after bronch , 8 liters trach collar , whitecount is slowly coming down 11/22: no SOB or crackles in the lungs or irritation around trach site 11/23: patient appears minimally responsive to antibiotics thus far and no clear signs of pneumonia 11/24: on methalpred likely contributing to leukocytosis . growing pseudomonas and ESBL e coli on bronch cultures 11/25: patient sensitivities are still pending 11/26: growing MDRO pseudomas that is resistant to meropenum 11/27: doing well on antibioitc therapy , remains clinically stable . Plan : - no oral antibiotics would likely be available to patiet that would adequately treat both organisms seen on respiratory culture - watch renal function and side effects while on therapy - recommend 5-7 day coarse of zerbaxa to treat current infection in patient - plan to discontinue gentomycin in 24-48 hours if patient is stable and hypoxia does not worsen - f/u on cultures - recommend chest pts to improve atelectasis - f/u on speciation of mallorie - consider diuresis - f/u on gram stain and culture - check EKG to see if patients has developed any QTC prolongation - empirically cover for MRSA until cultures are finalized - continue levofloxacin - less likely thierry syndrome Dietary Evaluation Review Comments: Nutrition recommendation 1) TF Jevity 1.2Cal @ 60ml/hr. Start @ 20ml/hr, increase 10ml/hr Q4H until goal is reached. TF @ goal volume provides 1728 kcal (100% energy needs), 80gm protein (100% protein needs), 1162ml free water. 2) Water flush 100ml Q4H 3) Monitor NPO status, TF tolerance, lab values, wt trend, I/O Expected Outcomes/Goals: To meet >75% estimated needs Fu 2-3 days EDGARD JOHNSON MD Dec 05, 2024 16:12
== END 2024-11-28 18:50 | disposition home health service (06) | DRG 871 ==
LOC: EDBD 16:55 → ER 16:55 → OVERFLOW 21:21 → ICU WEST 11-14 20:19 → TELE-WESTW 11-16 23:28 → WEST WING 11-25 01:49
PROVIDERS: ADMIT Student in an Organized Health Care Education/Training Program; ATTEND Emergency Medicine
PROC: 009U3ZX Drainage of Spinal Canal, Percutaneous Approach, Diagnostic (ICD-10-PCS; 2024-11-12)
PROC: B01BZZZ Fluoroscopy of Spinal Cord (ICD-10-PCS; 2024-11-12)
PROC: 0B9F8ZZ Drainage of Right Lower Lung Lobe, Via Natural or Artificial Opening Endoscopic (ICD-10-PCS; 2024-11-20)
PROC: 0B9J8ZZ Drainage of Left Lower Lung Lobe, Via Natural or Artificial Opening Endoscopic (ICD-10-PCS; principal; 2024-11-20 16:50)
DX: A41.59 Other Gram-negative sepsis (principal); G82.50 Quadriplegia, unspecified; J96.21 Acute and chronic respiratory failure with hypoxia; J15.69 Pneumonia due to other Gram-negative bacteria; G93.41 Metabolic encephalopathy; J69.0 Pneumonitis due to inhalation of food and vomit; J15.9 Unspecified bacterial pneumonia; E87.3 Alkalosis; J98.11 Atelectasis; Z16.24 Resistance to multiple antibiotics; Z16.13 Resistance to carbapenem; Z93.0 Tracheostomy status; H53.462 Homonymous bilateral field defects, left side; G93.89 Other specified disorders of brain; Z20.822 Contact with and (suspected) exposure to COVID-19; R65.20 Severe sepsis without septic shock; G40.909 Epilepsy, unspecified, not intractable, without status epilepticus; B96.5 Pseudomonas (aeruginosa) (mallei) (pseudomallei) as the cause of diseases classified elsewhere; B96.20 Unspecified Escherichia coli [E. coli] as the cause of diseases classified elsewhere; Z93.1 Gastrostomy status; Z74.01 Bed confinement status; Z79.899 Other long term (current) drug therapy; Z98.2 Presence of cerebrospinal fluid drainage device; Z87.820 Personal history of traumatic brain injury; Z78.9 Other specified health status
CPT/HCPCS: 31622; 36415; 36600; 62272; 70450; 71045; 71250; 80048; 80053; 80170; 80202; 80329; 81001; 82542; 82550; 82565; 82805; 82945; 83036; 83605; 83735; 83880; 84157; 85025; 85610; 85730; 86850; 86900; 86901; 87040; 87070; 87077; 87081; 87086; 87186; 87205; 87426; 87529; 87804; 89051; 93005; 93306; 93970; 94640; 96365; 96375; 97110; 97163; 97530; 99152; 99291; G0378; J0171; J0713; J1100; J1956; J2185; J2250; J2470; J2543; J7060

== ENCOUNTER 2024-11-29 08:38 | Inpatient (IN) | payer MEDICARE, MEDICAID ==
[~2024-11-29] VITALS: Ht 172.7 cm; Wt 84.7 kg
[2024-11-29] VITALS (7 sets, daily range): BP systolic 119–171; BP diastolic 69–87; PULSE 85–119; RESP 17–32; TEMP 98.5; O2SAT 95–99
[~2024-11-29 08:38] MED LIST: ACE30IS IN; AMINLIQ64 OR; ASCO500T11 GT; BACL10TA GT; CHL12OR MT; DIPH25CA66 PO; GLYC1SOL PO; IPRA0.00 IN; LACO150T3 GT; LEVA3NEB IN; LEVE100012 PO; LORA-1121 GT; LORA-622 PO; MULT-1018 GT; PANT40T PO; POLY335015 PO; POTA-36 GT; PRED20TA2 PO; ZINC220C8 GT
--- NOTE | 2024-11-29 09:01 | ED.PDOC ---
History of Present Illness HPI Comments 49-year-old male with PMHx TBI, non-verbal, bed-bound, brought in by EMS presents with a chief complaint of decreased mental status per EMS. Per EMS, patient was just discharged from this facility yesterday (11/28/2024) after being here since November 09, 2024. Patient was septic and is being treated with antibiotics. Patient was able to track with his eyes which is why they discharged him, but now patient is not tracking. No family at bedside to elaborate further. Time Seen by MD: 08:42 Reviewed Notes: Medications, Allergies Allergies: Coded Allergies: NO KNOWN ALLERGIES (Unverified , 11/09/24) Home Meds Active Scripts Pantoprazole Sodium Sesquihydr (Pantoprazole Sodium) 40 Mg Tab, 40 MG PO DAILY for 14 Days, #14 TAB Prov:FLAKO WOODSON RESIDENT 11/24/24 Prednisone (Prednisone) 20 Mg Tab, 20 MG PO DAILY for 5 Days, #5 AC Prov:FLAKO WOODSON RESIDENT 11/24/24 Reported Medications Levetiracetam (Keppra) 1,000 Mg Tab, 10 LIQ PO BID, #60 TAB 5 Refills 11/14/24 Amino Acids-Protein Hydrolysat (PRO-STAT) Liq, 30 ML OR DAILY, LIQ 11/14/24 Zinc Sulfate (Zinc Sulfate) 220 Mg Cap, 50 MG GT DAILY for 30 Days, MG 11/14/24 Potassium Chloride (POTASSIUM CHLORIDE CR) 10 Meq Tb, 20 MEQ GT DAILY, TAB 11/14/24 Multiple Vitamin (Multivitamins) Tab, 1 TAB GT DAILY, #30 TAB 2 Refills 11/14/24 Lorazepam (ATIVAN TABLET) 0.5 Mg Tb, 0.5 MG GT Q6HPRN PRN for SHORTNESS OF BREATH, TAB 11/14/24 Levalbuterol HCl (Levalbuterol) 1.25 Mg/0.5 Ml Neb, 1.25 MG IN Q4HP PRN for WHEEZING, INH 11/14/24 Lacosamide (Lacosamide) 150 Mg Tab, 150 MG GT BID, TAB 11/14/24 Loratadine (Claritin) 10 Mg Tab, 1 TAB PO DAILY for ALLERGIES, #30 TAB 5 Refills 11/14/24 Ipratropium-Albuterol (Ipratropium [place]/Albut) 1 Trace Trace, 1 TRACE IN Q6HPRN PRN for respiratory failure, ML 11/14/24 Glycopyrrolate (CUVPOSA) 1 Mg/5 Ml Trace, 1 MG PO Q8HPRN PRN for increased secretions, ML 11/14/24 Polyethylene Glycol 3350 (Miralax) 17 Gm Pow, 17 GM PO 3XW, POW 11/14/24 Chlorhexidine Gluconate (Mouth (CHLORHEXIDINE ORAL RINSE) 473 Ml So, 15 ML MT Q12HR, ML 11/14/24 Acetylcysteine (Acetylcysteine) 20 % Trace, 1 ML IN Q4HP PRN for thick secretions, ML 11/14/24 Diphenhydramine Hcl (Benadryl Allergy) 25 Mg Cap, 25 MG PO Q8HPRN PRN for allergies, CAP 11/14/24 Ascorbic Acid (VITAMIN C TABLET) 500 Mg Tb, 1 TAB GT BID, #60 TAB 11/14/24 Baclofen (Baclofen) 10 Mg Tab, 20 MG GT Q6HR for 30 Days, MG 11/14/24 Information Source: Emergency Med Personnel Mode of Arrival: EMS Severity: Moderate Timing: Hours Duration: Since onset Prehospital treatment: Care Transport Nurse, Oxygen Past Medical History PAST MEDICAL HISTORY: Seizures Surgical History: Denies all surgeries Family History Family History: Reviewed,noncontributory to illness Social History Smoker: Non-Smoker Alcohol: Denies ETOH Use Drugs: Denies Drug Use Lives In: Home Constitutional: denies: chills, diaphoresis, fatigue, fever, malaise, sweats, weakness, others EENTM: denies: blurred vision, double vision, ear bleeding, ear discharge, ear drainage, ear pain, ear ringing, eye pain, eye redness, hearing loss, mouth pain, mouth swelling, nasal discharge, nose bleeding, nose congestion, nose pain, photophobia, tearing, throat pain, throat swelling, voice changes, others Respiratory: denies: cough, hemoptysis, orthopnea, SOB at rest, shortness of breath, SOB with excertion, stridor, wheezing, others Cardiovascular: denies: chest pain, dizzy spells, diaphoresis, Dyspnea on exertion, edema, irregular heart beat, left arm pain, lightheadedness, palpitations, PND, syncope, others Gastrointestinal: denies: abdomen distended, abdominal pain, blood streaked bowels, constipated, diarrhea, dysphagia, difficulty swallowing, hematemesis, melena, nausea, poor appetite, poor fluid intake, rectal bleeding, rectal pain, vomiting, others Genitourinary: denies: burning, dysuria, flank pain, frequency, hematuria, incontinence, penile discharge, penile sore, pain, testicle pain, testicle swelling, urgency, others Neurological: denies: dizziness, fainting, headache, left sided numbness, left sided weakness, numbness, paresthesia, pre-existing deficit, right sided numbness, right sided weakness, seizure, speech problems, tingling, tremors, weakness, others Musculoskeletal: denies: back pain, gout, joint pain, joint swelling, muscle pain, muscle stiffness, neck pain, others Integumetry: denies: bruises, change in color, change in hair/nails, dryness, laceration, lesions, lumps, rash, wounds, others Allergic/Immunocompromised: denies: Difficulty Healing, Frequent Infections, Hives, Itching, others Hematologic/Lymphatic: denies: anemia, blood clots, easy bleeding, easy bruising, swollen glands, others Endocrine: denies: excessive hunger, excessive sweating, excessive thirst, excessive urination, flushing, intolerance to cold, intolerance to heat, unexplained weight gain, unexplained weight loss, others Psychiatric: denies: anxiety, bipolar disorder, depression, hopeless, panic disorder, schizophrenia, sleepless, suicidal, others Unable to Obtain due to: Altered Mental Status All Other Systems: Reviewed and Negative ( PER HPI) Physical Exam General Appearance: Moderate Distress, Normal HEENT: Normal ENT Inspection, Pharynx Normal, TMs Normal Neck: Full Range of Motion, Non-Tender, Normal, Normal Inspection Respiratory: Chest Non-Tender, Lungs Clear, No Accessory Muscle Use, No Respiratory Distress, Normal Breath Sounds Cardiovascular: No Edema, No JVD, No Murmur, No Gallop, Normal Peripheral Pulses, Regular Rate/Rhythm Breast Exam: Deferred Gastrointestinal: No Organomegaly, Non Tender, No Pulsatile Mass, Normal Bowel Sounds, Soft, Other (G-tube) Genitalia: Deferred Pelvic: Deferred Rectal: Deferred Extremities: No calf tenderness Musculoskeletal : Apperance: Normal Neurologic: Other (Unresponsive) Cerebellar Function: NOT DONE Reflexes: NOT DONE Skin: Dry, Normal Color, Warm Peripheral Pulses: 3+ Radial (R), 3+ Radial (L) Lymphatic: No Adenopathy Was a procedure done? Was a procedure done?: No Differential Dx Considerations may include: Sepsis Electrolyte imbalance X-Ray, Labs, Meds, VS Vital Signs Date Time Temp Pulse Resp B/P (MAP) Pulse Ox O2 Delivery O2 Flow Rate FiO2 11/29/24 09:27 27 97 Trach Collar 10 35 Cool Aerosol 35 11/29/24 08:59 99.6 128 42 122/53 (76) 98 99.6 11/29/24 08:53 119 Lab Test 11/29/24 09:21 Range/Units White Blood Count Pending Red Blood Count Pending Hemoglobin Pending Hematocrit Pending Mean Corpuscular Volume Pending Mean Corpuscular Hemoglobin Pending Mean Corpuscular Hemoglobin Concent Pending Red Cell Distribution Width Pending Platelet Count Pending Mean Platelet Volume Pending Neutrophils (%) (Auto) Pending Lymphocytes (%) (Auto) Pending Monocytes (%) (Auto) Pending Basophils (%) (Auto) Pending Neutrophils # (Auto) Pending Lymphocytes # (Auto) Pending Monocytes # (Auto) Pending Prothrombin Time Pending Prothrombin Time INR Pending Activated Partial Thromboplast Time Pending Sodium Level Pending Potassium Level Pending Chloride Level Pending Carbon Dioxide Level Pending Anion Gap Pending Blood Urea Nitrogen Pending Creatinine Pending Glomerular Filtration Rate Calc Pending BUN/Creatinine Ratio Pending Serum Glucose Pending Lactic Acid Level Pending Calcium Level Pending Total Bilirubin Pending Aspartate Amino Transferase (AST) Pending Alanine Aminotransferase (ALT) Pending Alkaline Phosphatase Pending Total Protein Pending Albumin Pending Current Medications Medications (Trade) Dose Ordered Sig/Ata Route Start Time Stop Time Status Last Admin Lactated Ringer's 2,050 ml @ 2,050 mls/hr ONCE ONCE IV 11/29/24 09:15 11/29/24 10:14 11/29/24 09:15 Albuterol (Ventolin Medneb) 5 mg ONCE ONCE NEB 11/29/24 09:15 11/29/24 09:16 DC 11/29/24 09:24 Ipratropium [place] (Atrovent Medneb) 0.5 mg ONCE ONCE NEB 11/29/24 09:15 11/29/24 09:16 DC 11/29/24 09:24 Patient discharged yesterday from this hospital. He is septic. Was given steroid. Tachycardia. He has a trach in place. Oxygen. Breathing treatment. Establish intravenous access. Was given fluids. Started antibiotics. Reviewed his previous visit. Time of 1ST Reevaluation: 09:12 Reevaluation 1ST: Unchanged Patient Education/Counseling: Diagnosis, Treatment, Need For Follow Up Family Education/Counseling: Diagnosis, Treatment, Need For Follow Up SEPSIS Sepsis Screen Physician Orders Complete Blood Count (11/29/24 09:08) Comprehensive Metabolic Panel (11/29/24 09:08) PTPTT (11/29/24 09:08) Urinalysis (11/29/24 09:08) Chest Portable (11/29/24 09:08) Accucheck (11/29/24 09:08) Lactated Ringer's (11/29/24 09:15) Blood Culture (11/29/24 09:08) Lactic Acid W/ Reflex Order (11/29/24 10:00) Cefepime 1gm/ 50ml (Maxipime 1gm/50ml) (11/29/24 14:00) Notify Md If Map <65 Or Bp<90 (11/29/24 09:08) If Map<65 Start Vasopressor (11/29/24 09:08) Electrocardigram (11/29/24 09:21) Vancomycin 1gm/250ml Kit (11/29/24 09:45) Vital Signs Date Time Temp Pulse Resp B/P (MAP) Pulse Ox O2 Delivery O2 Flow Rate FiO2 11/29/24 09:27 27 97 Trach Collar 10 35 Cool Aerosol 35 11/29/24 08:59 99.6 128 42 122/53 (76) 98 99.6 11/29/24 08:53 119 Laboratory Tests Test 11/29/24 09:21 Lactic Acid Level Pending White Blood Count Pending Medications Medications Dose Ordered Sig/Ata Route Start Time Stop Time Status Last Admin Dose Admin Albuterol 5 mg ONCE ONCE NEB 11/29/24 09:15 11/29/24 09:16 DC 11/29/24 09:24 Ipratropium [place] 0.5 mg ONCE ONCE NEB 11/29/24 09:15 11/29/24 09:16 DC 11/29/24 09:24 Lactated Ringer's 2,050 ml @ 2,050 mls/hr ONCE ONCE IV 11/29/24 09:15 11/29/24 10:14 11/29/24 09:15 Departure 1 Departure Time of Disposition: 09:48 Impression: Primary Impression: Metabolic encephalopathy Additional Impression: Sepsis Qualified Codes: A41.9 - Sepsis, unspecified organism Disposition: ADMITTED INPATIENT Admit to: Med Surg Condition: Guarded Critical Care Note Critical Care Time?: Yes (90 min-critical care time only) Critical care comment: Continue to monitor Stability Stability form required: No Heart Score Heart Score: Heart Score Response (Comments) Value History Slightly Suspicious 0 EKG Normal 0 Age 45-64 1 Risk Factors >3 or Hx ASHD 2 Troponin N/A 0 Total 3 I personally scribed for MIRYAM BUTLER MD ([email or web address]) on 11/29/24 at 09:01. Electronically submitted by Neil Fish ([email or web address]). MIRYAM BUTLER MD Nov 29, 2024 09:01
[2024-11-29] MEDS: methylPREDNISolone SOD SUCC 125 MG/2 ML VL IV ONE (09:15)
[2024-11-29] MEDS: ACETAMINOPHEN IV 1000 MG/100ML (10MG/ML) IV ONE (09:15)
[2024-11-29] MEDS: LACTATED RINGER'S 2,050 ML IV ONE (09:15)
[2024-11-29] MEDS ORDERED: VANCOMYCIN 1GM/200ML PM 200 ML IV ONE (09:15)
[2024-11-29] MEDS: IPRATROPIUM BROM 0.5 MG/2.5ML INH SOL NEB ONE ×2 (09:24→16:28)
[2024-11-29] MEDS: ALBUTEROL SULF 2.5 MG/0.5ML(0.5%) NEB SOLN NEB ONE ×2 (09:24→16:28)
[2024-11-29] MEDS ORDERED: VANCOMYCIN 1GM/250ML KIT 250 ML IV ONE (09:45)
[2024-11-29 09:52] LABS: Hematocrit 49.7 % (41.0-53.0); Hemoglobin 16.7 g/dL (13.5-17.5); Mean Corpuscular Hemoglobin 29.0 pg (28.0-32.0); Mean Corpuscular Volume 86.5 fL (80.0-100.0); Nucleated Red Blood Cells % 0.0 %
[2024-11-29 10:00] LABS: INR 1.02 (0.9-1.15); Partial Thromboplastin Time 28.8 SEC (24.5-34.5); Prothrombin Time 10.8 sec (9.3-11.8)
[2024-11-29] MEDS: VANCOMYCIN 1GM/200ML PM 200 ML IV ONE ×2 (10:00→22:34)
[2024-11-29 10:02] LABS: Albumin 3.8 g/dL (3.2-4.8); Alkaline Phosphatase 109 U/L (46-116); Anion Gap 10 (5-15); BUN/Creatinine Ratio 19.6 (10.0-20.0); Blood Urea Nitrogen 11 mg/dL (9-23); Calcium 9.6 mg/dL (8.7-10.4); Carbon Dioxide 25 mmol/L (20-31); Chloride 103 mmol/L (98-107); Glucose 105 mg/dL (74-106); Potassium 3.6 mmol/L (3.5-5.1); Sodium 138 mmol/L (136-145); Total Protein 6.4 g/dL (5.7-8.2)
[2024-11-29 10:08] LABS: Alanine Aminotransferase 122 U/L (7-40); Bilirubin, Total 1.7 mg/dL (0.2-1.0)
[2024-11-29 10:15] LABS: Lactic Acid w/Reflex 2.1 mmol/L (0.4-2.0)
--- NOTE | 2024-11-29 10:27 | DVH ---
CLINICAL INFORMATION: Shortness of breath. TECHNIQUE: Single AP portable chest radiograph was obtained. COMPARISON: XY CHEST XRAY 1 VIEW on DOS: 11/22/24, XY CHEST XRAY 1 VIEW on DOS: 11/21/24, XY CHEST XRAY 1 VIEW on DOS: 11/20/24 FINDINGS: Lungs: Low lung volumes. Bilateral perihilar interstitial opacities, increased compared to the prior exam. Ill-defined airspace opacities in the lung bases, may be infectious or inflammatory in nature. Cardiac: Heart size is within normal limits. Pulmonary vasculature: Unremarkable. Mediastinum/raymond: Unremarkable. Bones: No acute osseous abnormality identified. Other: DISC PAD GRINDER shunt catheter visualized extending from the right side of the neck along the right chest w all, into the abdomen, and below the [id number] of the exam. IMPRESSION: Bilateral perihilar interstitial opacities and ill-defined opacities in the lung bases are nonspecifi c, may be infectious or inflammatory in nature. The findings appear increased compared to the prior e xam. Correlate with clinical findings.
[2024-11-29] MEDS: CEFEPIME 1GM/ 50ML 50 ML IV SCH (12:32)
[2024-11-29 14:58] LABS: Urine Protein, UAD Negative (Negative)
[2024-11-29] MEDS ORDERED: ONDANSETRON HCL 4 MG/2 ML VIAL IV PRN (17:00)
[2024-11-29] MEDS ORDERED: DOCUSATE SOD 100 MG CAP PO PRN (17:00)
[2024-11-29] MEDS ORDERED: HYDROmorphone HCL 2 MG/ML VL/or syr IV PRN (17:00)
[2024-11-29] MEDS ORDERED: VANCOMYCIN PER PHARMACY 0 MG IV SCH (18:45)
[2024-11-29] MEDS ORDERED: ALBUTEROL SULF 2.5 MG/0.5ML(0.5%) NEB SOLN NEB PRN (18:45)
--- NOTE | 2024-11-29 18:50 | DVHHP2 ---
Admitting Diagnosis: Altered mental status History of Present Illness 49-year-old male with PMHx TBI, non-verbal, bed-bound, brought in by EMS presents with a chief complaint of decreased mental status per EMS. Per EMS, patient was just discharged from this facility yesterday (11/28/2024) after being here since November 09, 2024. Patient was septic and is being treated with antibiotics. Patient was able to track with his eyes which is why they discharged him, but now patient is not tracking. No family at bedside to elaborate further. PAST MEDICAL HISTORY: Seizures Surgical History: Denies all surgeries Family History Family History: Reviewed,noncontributory to illness Social History Smoker: Non-Smoker Alcohol: Denies ETOH Use Drugs: Denies Drug Use Lives In: Home Allergies: Coded Allergies: NO KNOWN ALLERGIES (Unverified , 11/09/24) Home Meds Active Scripts Pantoprazole Sodium Sesquihydr (Pantoprazole Sodium) 40 Mg Tab, 40 MG PO DAILY for 14 Days, #14 TAB Prov:FLAKO WOODSON RESIDENT 11/24/24 Prednisone (Prednisone) 20 Mg Tab, 20 MG PO DAILY for 5 Days, #5 AC Prov:FLAKO WOODSON RESIDENT 11/24/24 Reported Medications Levetiracetam (Keppra) 1,000 Mg Tab, 10 LIQ PO BID, #60 TAB 5 Refills 11/14/24 Amino Acids-Protein Hydrolysat (PRO-STAT) Liq, 30 ML OR DAILY, LIQ 11/14/24 Zinc Sulfate (Zinc Sulfate) 220 Mg Cap, 50 MG GT DAILY for 30 Days, MG 11/14/24 Potassium Chloride (POTASSIUM CHLORIDE CR) 10 Meq Tb, 20 MEQ GT DAILY, TAB 11/14/24 Multiple Vitamin (Multivitamins) Tab, 1 TAB GT DAILY, #30 TAB 2 Refills 11/14/24 Lorazepam (ATIVAN TABLET) 0.5 Mg Tb, 0.5 MG GT Q6HPRN PRN for SHORTNESS OF BREATH, TAB 11/14/24 Levalbuterol HCl (Levalbuterol) 1.25 Mg/0.5 Ml Neb, 1.25 MG IN Q4HP PRN for WHEEZING, INH 11/14/24 Lacosamide (Lacosamide) 150 Mg Tab, 150 MG GT BID, TAB 11/14/24 Loratadine (Claritin) 10 Mg Tab, 1 TAB PO DAILY for ALLERGIES, #30 TAB 5 Refills 11/14/24 Ipratropium-Albuterol (Ipratropium [place]/Albut) 1 Trace Trace, 1 TRACE IN Q6HPRN PRN for respiratory failure, ML 11/14/24 Glycopyrrolate (CUVPOSA) 1 Mg/5 Ml Trace, 1 MG PO Q8HPRN PRN for increased secretions, ML 11/14/24 Polyethylene Glycol 3350 (Miralax) 17 Gm Pow, 17 GM PO 3XW, POW 11/14/24 Chlorhexidine Gluconate (Mouth (CHLORHEXIDINE ORAL RINSE) 473 Ml So, 15 ML MT Q12HR, ML 11/14/24 Acetylcysteine (Acetylcysteine) 20 % Trace, 1 ML IN Q4HP PRN for thick secretions, ML 11/14/24 Diphenhydramine Hcl (Benadryl Allergy) 25 Mg Cap, 25 MG PO Q8HPRN PRN for allergies, CAP 11/14/24 Ascorbic Acid (VITAMIN C TABLET) 500 Mg Tb, 1 TAB GT BID, #60 TAB 11/14/24 Baclofen (Baclofen) 10 Mg Tab, 20 MG GT Q6HR for 30 Days, MG 11/14/24 Current Medications Current Medications Medications (Trade) Dose Ordered Sig/Ata Route PRN Reason Start Time Stop Time Status Last Admin Cefepime HCl 50 ml @ 12.5 mls/hr Q8HR IV 11/29/24 14:00 11/29/24 18:42 DC 11/29/24 12:32 Sodium Chloride (Saline Lock Ns) 10 ml Q8HR IV 11/29/24 22:00 Docusate Sodium (Colace Capsule) 100 mg BIDPRN PRN PO FOR CONSTIPATION 11/29/24 17:00 Acetaminophen (Tylenol Tablet) 650 mg Q6HP PRN PO PAIN SCALE 1-3 OR TEMP>100.4 11/29/24 17:00 Hydromorphone HCl (Dilaudid Injection) 0.5 mg Q4HP PRN IV SEVERE PAIN (7-10 PAIN SCALE) 11/29/24 17:00 Ondansetron HCl (Zofran) 4 mg Q4HP PRN IV NAUSEA / VOMITING 11/29/24 17:00 Enoxaparin Sodium (Lovenox) 40 mg DAILY SC 11/30/24 10:00 Ertapenem 1 gm/ Sodium Chloride 50 ml @ 100 mls/hr DAILY IV 11/30/24 10:00 UNV Vancomycin HCl 0 ml @ 0 mls/hr UD IV 11/29/24 18:45 UNV Albuterol (Ventolin Medneb) 2.5 mg Q6HPRN PRN NEB SHORTNESS OF BREATH 11/29/24 18:45 UNV Ipratropium [place] (Atrovent Medneb) 0.5 mg Q6HWA NEB 11/30/24 06:00 UNV Methylprednisolone Sodium Succinate (Solu Medrol) 60 mg Q6HR IV 11/30/24 00:00 UNV Vital Signs Vital Signs Date Time Temp Pulse Resp B/P (MAP) Pulse Ox O2 Delivery O2 Flow Rate FiO2 11/29/24 18:00 98.0 118 20 153/82 (105) 100 98.0 11/29/24 16:28 Trach Collar 6 N/A Physical Exam General-49 years old male, well nourished well developed. Lying in bed. No apparent distress HEENT: traumatic brain injury. + Trach collar Heart: RRR Lung: decrease breath sounds Abd: soft, non-tender, non-distended Msk: pedal edema Neuro: eyes open, smiles when speaks with pt's mom. non-verbal. qudraplegic Results Labs Test 11/29/24 14:43 11/29/24 11:26 11/29/24 09:44 11/29/24 09:21 Range/Units Urine Color Light-yellow Yellow Urine Clarity Clear Clear Urine pH 8.0 5.0-9.0 Urine Specific [place] 1.008 1.001-1.035 Urine Protein Negative Negative Urine Ketones Negative Negative Urine Blood 2+ H Negative /uL Urine Nitrite Negative Negative Urine Bilirubin Negative Negative Urine Urobilinogen Normal Negative mg/dL Urine Leukocyte Esterase Negative Negative /uL Urine RBC 18 0 - 3 /hpf Urine Microscopic WBC 1 0-3 /HPF Urine Squamous Epithelial Cells Few <5 /hpf Urine Bacteria None seen None Seen /hpf Urine Glucose Normal Normal mg/dL Lactic Acid Level 2.9 *H 0.4-2.0 mmol/L POC Glucose 111 H 70-106 mg/dl White Blood Count 25.8 #H 4.4-10.8 10^3/uL Red Blood Count 5.74 4.5-5.90 10^6/uL Hemoglobin 16.7 # 13.5-17.5 g/dL Hematocrit 49.7 # 41.0-53.0 % Mean Corpuscular Volume 86.5 80.0-100.0 fL Mean Corpuscular Hemoglobin 29.0 28.0-32.0 pg Mean Corpuscular Hemoglobin Concent 33.6 32.0-36.0 g/dL Red Cell Distribution Width 14.3 11.8-14.3 % Platelet Count 127 L 140-450 10^3/uL Mean Platelet Volume 9.2 6.9-10.8 fL Neutrophils (%) (Auto) 90.7 H 37.0-80.0 % Lymphocytes (%) (Auto) 3.0 L 10.0-50.0 % Monocytes (%) (Auto) 5.8 0.0-12.0 % Eosinophils (%) (Auto) 0.1 0.0-7.0 % Basophils (%) (Auto) 0.4 0.0-2.0 % Neutrophils # (Auto) 23.5 H 1.6-8.6 10 ^3/uL Lymphocytes # (Auto) 0.8 0.4-5.4 10 ^3/uL Monocytes # (Auto) 1.5 H 0-1.3 10 ^3/uL Eosinophils # (Auto) 0 0-0.8 10 ^3/uL Basophils # (Auto) 0.1 0-0.2 10 ^3/uL Nucleated Red Blood Cells 0.0 % Prothrombin Time 10.8 9.3-11.8 sec Prothrombin Time INR 1.02 0.9-1.15 Activated Partial Thromboplast Time 28.8 24.5-34.5 SEC Sodium Level 138 136-145 mmol/L Potassium Level 3.6 3.5-5.1 mmol/L Chloride Level 103 98-107 mmol/L Carbon Dioxide Level 25 20-31 mmol/L Anion Gap 10 5-15 Blood Urea Nitrogen 11 9-23 mg/dL Creatinine 0.56 L 0.700-1.30 mg/dL Glomerular Filtration Rate Calc 121 >90 mL/min BUN/Creatinine Ratio 19.6 10.0-20.0 Serum Glucose 105 74-106 mg/dL Calcium Level 9.6 8.7-10.4 mg/dL Total Bilirubin 1.7 H 0.2-1.0 mg/dL Aspartate Amino Transferase (AST) 59 H 13-40 U/L Alanine Aminotransferase (ALT) 122 H 7-40 U/L Alkaline Phosphatase 109 46-116 U/L Total Protein 6.4 5.7-8.2 g/dL Albumin 3.8 3.2-4.8 g/dL Primary Diagnosis Sepsis Acute hypoxic respiratory failure likely due to HCAP Plan Patient's history of MDRO pneumonia. Start vanco and ertapenem for broad-spectrum antibiotics Check ESR, CRP, pro count Sitting and saturation goal greater than 92% Check blood culture Check sputum culture IV fluids fluid resuscitation until lactic acid normalized Resume home meds full code lovenox for dvt ppx ppi Plan discussed with: Patient, Other (mother) Problems List: (1) Metabolic encephalopathy Status: Acute (2) Sepsis Status: Acute (3) Traumatic brain injury Status: Acute (4) Aspiration into airway Status: Acute Date of Service: Nov 29, 2024 Billing Provider: RAAD MCGREGOR MD Common Visit Codes: [id number] INP/OBS CARE (HIGH) RAAD MCGREGOR MD Nov 29, 2024 18:50
--- NOTE | 2024-11-29 18:53 | ECG ---
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
[2024-11-29] MEDS ORDERED: LEVALBUTEROL HCL 1.25 MG/3 ML NEB NEB PRN (19:45)
[2024-11-29] MEDS: LACTATED RINGER'S 1,000 ML IV ONE (20:00)
[2024-11-29] MEDS: CHLORHEXIDINE 0.12% ORAL rinse 473ML MT SCH (22:00)
[2024-11-29] MEDS: ASCORBIC ACID 500 MG TAB GT SCH (22:19)
[2024-11-29] MEDS: SODIUM CHLOR 0.9% PF (SALINE LOCK) 10ML VIAL/SYR IV SCH (22:19)
[2024-11-30] VITALS (31 sets, daily range): BP systolic 106–141; BP diastolic 47–87; PULSE 59–94; RESP 17–26; TEMP 97.2–98.5; O2SAT 93–98
[2024-11-30] MEDS: methylPREDNISolone SOD SUCC 125 MG/2 ML VL IV SCH (01:06)
[2024-11-30] MEDS: BACLOFEN 10 MG TAB GT SCH (01:07)
[2024-11-30] MEDS: LEVALBUTEROL HCL 1.25 MG/3 ML NEB NEB SCH (06:05)
[2024-11-30] MEDS: IPRATROPIUM BROM 0.5 MG/2.5ML INH SOL NEB SCH (06:05)
[2024-11-30 07:29] LABS: Hematocrit 46.0 % (41.0-53.0); Hemoglobin 15.3 g/dL (13.5-17.5); Mean Corpuscular Hemoglobin 29.0 pg (28.0-32.0); Mean Corpuscular Volume 87.5 fL (80.0-100.0); Nucleated Red Blood Cells % 0.0 %
[2024-11-30 07:42] LABS: Albumin 3.5 g/dL (3.2-4.8); Alkaline Phosphatase 88 U/L (46-116); Anion Gap 11 (5-15); BUN/Creatinine Ratio 20.0 (10.0-20.0); Blood Urea Nitrogen 9 mg/dL (9-23); Calcium 9.7 mg/dL (8.7-10.4); Carbon Dioxide 23 mmol/L (20-31); Glucose 79 mg/dL (74-106); Potassium 4.1 mmol/L (3.5-5.1); Sodium 141 mmol/L (136-145); Total Protein 5.9 g/dL (5.7-8.2)
[2024-11-30 07:44] LABS: Bilirubin, Total 1.1 mg/dL (0.2-1.0)
[2024-11-30 07:45] LABS: Alanine Aminotransferase 92 U/L (7-40); Chloride 107 mmol/L (98-107)
[2024-11-30] MEDS ORDERED: GLYCOPYRROLATE 1 MG/5 ML PO PRN (08:15)
[2024-11-30] MEDS: PANTOPRAZOLE 40 MG/10 ML VIAL INJ IV SCH (09:34)
[2024-11-30] MEDS: MULTIPLE VITAMIN TAB GT SCH (09:34)
[2024-11-30] MEDS: PANTOPRAZOLE 40 MG TAB PO SCH (09:34)
[2024-11-30] MEDS: ZINC SULFATE 220mg CAP or TAB GT SCH (09:34)
[2024-11-30] MEDS: ENOXAPARIN SOD 40 MG/0.4 ML SYRINGE SC SCH (09:35)
[2024-11-30] MEDS: ERTAPENEM SOD INJ 1 GM in SODIUM CHL 0.9% 50 ML IV SCH (09:36)
[2024-11-30] MEDS: LORATADINE 10 MG TAB PO SCH (09:54)
[2024-11-30] MEDS: Pro-Stat SF 30ml Vanilla PO SCH (09:54)
[2024-11-30] MEDS: VANCOMYCIN 1GM/200ML PM 200 ML IV SCH (11:11)
[2024-11-30] MEDS ORDERED: GENTAMICIN PER PHARMACY 0 ML IV SCH (11:30)
--- NOTE | 2024-11-30 12:20 | DVHPN2 ---
Assessment/Plan Assessment/Plan ICU notes 49 yo M with hx of TBI, endocarditis, on trach collar with recent admission for MDRO asp pna and sepsis, discharged on home IV abx zerbexa and gentamycin, brought back to ED 2/2 fever. seen today, mental status looks baseline compared to prior to discharge. on 8LPM in trach. was given invanz and vanc, restarted zerbexa and gent. 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 continue tube feedings on iv zerbexa and genta at home, continue with same c/w o2 supp on trach collar maintain spo2 92-94% resume home meds id and pulm back on board transfer to tele full code diet tube feed dvt ppx lovenox prognosis poor crit care time 35 minutes Plan discussed with: Patient My Orders Orders - ELMER STEVENSON MD Procedure Category Date Status Time Gentamicin Per [facility] 11/30/24 Logged Pharmacy 11:30 Ceftolozane-Tazob [facility] 11/30/24 In Process 1g/0.5g Vl (Zerbaxa 1g 14:00 Transfer Orders XFER 11/30/24 Transmitted 12:11 Date of Service: Nov 30, 2024 Billing Provider: ELMER STEVENSON MD Common Visit Codes: [id number] CARE 30-74 MIN ELMER STEVENSON MD Nov 30, 2024 12:20
[2024-11-30] MEDS: [UNRECOGNIZED DRUG - OTHER] IV SCH (14:18)
[2024-11-30] MEDS: D5W 5% IV SCH (14:18)
[2024-11-30] MEDS: CEFTOLOZANE TAZOB IV SCH (14:18)
[2024-11-30] MEDS: Jevity 1.2 Cal/Fiber 1 Liter GT SCH (14:24)
[2024-11-30] MEDS: GENTAMICIN SULFATE 80 MG in D5W 5% 100 ML IV SCH (15:28)
[2024-11-30] MEDS ORDERED: LACOSAMIDE 10 MG GT SCH (22:00)
[2024-11-30] MEDS: LACOSAMIDE 50 MG TAB GT SCH (22:36)
--- NOTE | 2024-11-30 23:51 | DVHPN2 ---
Progress Note - Dictate Date Seen: Nov 30, 2024 Medical Necessity Reason Pt with a Central, PICC or Fol: No Subjective Patient seen and examined at bedside. On supplemental oxygen via trach. Overnight events reviewed. HPI: A 49-year-old man with past medical history of TBI and seizures, nonverbal, bedbound, who presented to ED via EMS on 11/29/24 with a chief complaint of decreased mental status. Per EMS, patient was just discharged from this facility (11/28/2024) after being here since 11/09/2024. Patient was septic and being treated with antibiotics. Apparently, patient had change in condition after discharge with not being able to track with his eyes and he was brought in for evaluation. HPI information limited due to patient condition and no family available. Patient was admitted for further care; and pulmonary consultation is requested for evaluation and management of acute on chronic hypoxic respiratory failure and sepsis. Review of Systems: 14-point review of systems negative unless otherwise noted above. Past Medical History: TBI, seizures, quadriplegia Past Surgical History: Tracheostomy Medications: Reviewed. Allergies: No known drug allergies. Family History: No family history of premature CAD. No family history of lung disorders. Social History: Nonsmoker. No alcohol or illicit drug use. vital signs Vital Sign Date Time Temp Pulse Resp B/P (MAP) Pulse Ox O2 Delivery O2 Flow Rate FiO2 11/30/24 19:08 96 T-piece 6.0 11/30/24 19:08 28 28 11/30/24 17:05 98.4 77 106/63 (77) 98.4 11/30/24 16:00 22 Total Intake and Output 11/29/24 11/29/24 11/30/24 15:00 23:00 07:00 Intake Total 2275.0 ml 1025.0 ml 320 ml Output Total 600 ml Balance 2275.0 ml 1025.0 ml -280 ml medications Current Medications Medications Dose Ordered Sig/Ata Route Start Time Stop Time Status Last Admin Dose Admin Sodium Chloride 10 ml Q8HR IV 11/29/24 22:00 11/30/24 22:00 10 ML Acetaminophen 650 mg Q6HP PRN PO 11/29/24 17:00 Enoxaparin Sodium 40 mg DAILY SC 11/30/24 10:00 11/30/24 09:35 40 MG Albuterol 2.5 mg Q6HPRN PRN NEB 11/29/24 18:45 Cancel Ipratropium [place] 0.5 mg Q6HWA [facility] 11/30/24 06:00 11/30/24 19:08 0.5 MG Acetylcysteine 200 mg Q4HP PRN IN 11/29/24 18:45 Ascorbic Acid 500 mg BID GT 11/29/24 22:00 11/30/24 22:36 500 MG Baclofen 20 mg Q6HR GT 11/30/24 00:00 11/30/24 18:33 20 MG Chlorhexidine Gluconate 15 ml Q12HR [place] 11/29/24 22:00 Diphenhydramine HCl 25 mg Q8HPRN PRN PO 11/29/24 18:45 Multivitamins 1 tab DAILY GT 11/30/24 10:00 11/30/24 09:34 1 TAB Pantoprazole Sodium 40 mg DAILY PO 11/30/24 10:00 Hold 11/30/24 09:34 40 MG Polyethylene Glycol 17 gm DAILY PRN PO 11/29/24 18:45 Patient Own Medication 1 mg Q8HPRN PRN PO 11/30/24 08:15 Levetiracetam 1,000 mg BID 11/29/24 22:00 11/30/24 22:36 1,000 MG Zinc Sulfate 220 mg DAILY 11/30/24 10:00 11/30/24 09:34 220 MG Levalbuterol HCl 1.25 mg Q6HWA [facility] 11/30/24 06:00 11/30/24 19:08 1.25 MG Ipratropium [place] 0.5 mg Q4HPRN PRN [facility] 11/29/24 22:00 Gentamicin Sulfate 0 ml @ 0 mls/hr PER PHARMACY IV 11/30/24 11:30 Ceftolozane/ Tazobactam 3 gm/ Dextrose 100 ml @ 100 mls/hr Q8HR IV 11/30/24 14:00 11/30/24 14:18 100 MLS/HR Gentamicin Sulfate 80 mg/ Dextrose 102 ml @ 100.3 mls/ hr Q8H IV 11/30/24 15:00 11/30/24 22:36 100.3 MLS/HR Patient Own Medication 10 mg BID GT 11/30/24 22:00 UNV Enteral Nutritional Formula 1,000 ml 60ML/HR GT 11/30/24 14:00 11/30/24 14:24 1,000 ML Lacosamide 150 mg BID GT 11/30/24 22:00 11/30/24 22:36 150 MG objective Gen.: Patient lying in bed in no apparent distress. On supplemental oxygen via trach. Head: Normocephalic, atraumatic. Eyes: EOMI/PERRLA. Ears: Normal hearing. Normal anatomy. Neck/trachea: Trach in place. Nose: Normal external anatomy. Mouth: Moist mucous membranes. Chest: Decreased air entry bilaterally. No wheezing or rhonchi. Cardiovascular: Positive S1, positive S2. Regular rate and rhythm. Abdomen: Positive bowel sounds in all 4 quadrants. Soft, non-tender, non- distended. : Deferred. Rectal: Deferred. Skin: Warm, dry. Intact. Extremities: 2+ radial pulses bilaterally. No lower extremity edema. Neuro: Awake, alert, nonverbal. No gross motor or sensory deficits. Cranial nerves II through XII intact. Patient is quadriplegic. laboratory and microbiology Laboratory Tests 11/30/24 05:06 Test 11/30/24 05:06 Range/Units Serum Glucose 79 74-106 mg/dL Assessment/Plan Impression: Acute on chronic hypoxic respiratory failure Dependence on supplemental oxygen Acute metabolic encephalopathy Sepsis Atelectasis Plan: Patient is s/p tracheostomy On supplemental oxygen via trach Titrate to keep O2 sats above 92%. Pt has a 7.0 cuffless Portex trach; T-Piece at 6 LPM/28%. Sitter at bedside. Trach care per RT. Head of bed elevation Aspiration precautions IV fluids with NS at 100 ml/hr. Continue bronchodilators. IV steroids Continue antibiotics Vitamin supplementation Antiepileptic Monitor renal function. Monitor electrolytes. Supplement as necessary. Monitor ins and outs. GI/DVT prophylaxis. Prognosis: Poor given patient's multiple co-morbidities. Rest of plan per hospitalist and other consultants. Thank you Dr. Maurice for allowing me to participate in this patient's care. Further recommendations will depend on the patient's clinical course. Please do not hesitate to contact me if you have any questions or concerns. This medical document was created using an electronic medical record system with [employer] dictation system. Although these documentations are being carefully reviewed, there may still be some phonetic and typographical changes. The errors are purely typographical, due to imperfection on the software program, and do not reflect any compromise in the patient's medical care. Dietary Evaluation Review Comments: 1) If patient remains NPO for more than 7 days, cosider EN/TPN to meet at least 75% estimated energy needs 2) If GI route is preferred, consider Jevity 1.2 @ 60 mL/hr goal rate as tolerated. TF regimen (including Pro-Stat @ 30 mL qd) will provide 1828 kcals, 95g Pro, and 1,162 mL free H2O per 24 hrs. Goal rate will meet ~98% estimated energy needs and 87% estimated protein needs. 3) Advance to regular diet when medically feasible, pending ST approval 4) Continue to monitor I&O, labs, and skin integrity Expected Outcomes/Goals: 1) patient to receive nutrition support within 7 days of NPO status 2) labs and wound to improve 3) diet to advance 4) f/u in 2-3 days Plan discussed with: Other (CRYSTAL Szymanski) HOMERO PENA MD Nov 30, 2024 23:51
[2024-12-01] VITALS (19 sets, daily range): BP systolic 104–125; BP diastolic 62–70; PULSE 59–96; RESP 17–18; TEMP 98–98.4; O2SAT 95–100
[2024-12-01 06:51] LABS: Hematocrit 44.1 % (41.0-53.0); Hemoglobin 14.6 g/dL (13.5-17.5); Mean Corpuscular Hemoglobin 29.1 pg (28.0-32.0); Mean Corpuscular Volume 87.7 fL (80.0-100.0); Nucleated Red Blood Cells % 0.0 %
[2024-12-01 07:21] LABS: Albumin 3.3 g/dL (3.2-4.8); Alkaline Phosphatase 79 U/L (46-116); Anion Gap 9 (5-15); BUN/Creatinine Ratio 27.8 (10.0-20.0); Bilirubin, Total 0.5 mg/dL (0.2-1.0); Blood Urea Nitrogen 15 mg/dL (9-23); Calcium 8.9 mg/dL (8.7-10.4); Carbon Dioxide 24 mmol/L (20-31); Glucose 100 mg/dL (74-106); Potassium 3.7 mmol/L (3.5-5.1); Sodium 141 mmol/L (136-145)
[2024-12-01 07:23] LABS: Alanine Aminotransferase 72 U/L (7-40); Chloride 108 mmol/L (98-107); Total Protein 5.5 g/dL (5.7-8.2)
--- NOTE | 2024-12-01 16:11 | DVHPNRES ---
Progress Note Date Seen: Dec 01, 2024 Resident Creating Document: FLAKO WOODSON RESIDENT Medical Necessity Reason Pt with a Central, PICC or Fol: No Subjective Review of Systems Patient was seen and examined at bedside. Patient is nonverbal at baseline, could not provide review of system. Patient is on 6L oxygen, s/p tracheostomy. Last 12 hr Tmax is 98.4. Today CBC showed WBC count 15.5 , stable H/H . Pulmonology and Infectious disease are on board. Patient is on IV Zerbaxa 3 g Q 8 hours and IV gentamicin 80 mg Q 8 hours as per ID recommendation. Objective vital signs Vital Sign Date Time Temp Pulse Resp B/P (MAP) Pulse Ox O2 Delivery O2 Flow Rate FiO2 12/01/24 15:36 Trach Collar 6 N/A 12/01/24 13:00 98.1 72 18 112/64 (80) 98 98.1 Total Intake and Output 11/30/24 11/30/24 12/01/24 15:00 23:00 07:00 Intake Total 350 ml 588 ml 1049 ml Output Total 1000 ml 400 ml Balance 350 ml -412 ml 649 ml medications Current Medications Medications Dose Ordered Sig/Ata Route Start Time Stop Time Status Last Admin Dose Admin Sodium Chloride 10 ml Q8HR IV 11/29/24 22:00 12/01/24 13:36 10 ML Acetaminophen 650 mg Q6HP PRN PO 11/29/24 17:00 Enoxaparin Sodium 40 mg DAILY SC 11/30/24 10:00 12/01/24 09:10 40 MG Albuterol 2.5 mg Q6HPRN PRN NEB 11/29/24 18:45 Cancel Ipratropium [place] 0.5 mg Q6HWA [facility] 11/30/24 06:00 12/01/24 11:27 0.5 MG Acetylcysteine 200 mg Q4HP PRN IN 11/29/24 18:45 Ascorbic Acid 500 mg BID GT 11/29/24 22:00 12/01/24 09:10 500 MG Baclofen 20 mg Q6HR GT 11/30/24 00:00 12/01/24 11:32 20 MG Chlorhexidine Gluconate 15 ml Q12HR [place] 11/29/24 22:00 Diphenhydramine HCl 25 mg Q8HPRN PRN PO 11/29/24 18:45 Multivitamins 1 tab DAILY GT 11/30/24 10:00 12/01/24 09:10 1 TAB Pantoprazole Sodium 40 mg DAILY PO 11/30/24 10:00 Hold 11/30/24 09:34 40 MG Polyethylene Glycol 17 gm DAILY PRN PO 11/29/24 18:45 Patient Own Medication 1 mg Q8HPRN PRN PO 11/30/24 08:15 Levetiracetam 1,000 mg BID GT 11/29/24 22:00 12/01/24 09:57 1,000 MG Zinc Sulfate 220 mg DAILY GT 11/30/24 10:00 12/01/24 09:11 220 MG Levalbuterol HCl 1.25 mg Q6HWA [facility] 11/30/24 06:00 12/01/24 11:27 1.25 MG Ipratropium [place] 0.5 mg Q4HPRN PRN [facility] 11/29/24 22:00 Gentamicin Sulfate 0 ml @ 0 mls/hr PER PHARMACY IV 11/30/24 11:30 Ceftolozane/ Tazobactam 3 gm/ Dextrose 100 ml @ 100 mls/hr Q8HR IV 11/30/24 14:00 12/01/24 13:35 100 MLS/HR Gentamicin Sulfate 80 mg/ Dextrose 102 ml @ 100.3 mls/ hr Q8H IV 11/30/24 15:00 12/01/24 15:08 100.3 MLS/HR Patient Own Medication 10 mg BID 11/30/24 22:00 UNV Enteral Nutritional Formula 1,000 ml 60ML/HR 11/30/24 14:00 12/01/24 09:57 1,000 ML Lacosamide 150 mg BID 11/30/24 22:00 12/01/24 09:11 150 MG Examination Examination Gen - no pallor, no icterus, no cyanosis, no clubbing, no LAD, Skin - Patients skin is warm and dry. generalized rash HEENT - status post cranial surgery with a left hemicranium, moist mucous membranes, trach cannula in place Neck - no LAD, no JVD Pulmonary - B/L course rales heard, no wheezing, no stridor. cardiovascular - regular S1,S2 heard, left lower sternal border systolic murmur heard. peripheral pulses normal radial 2+, pedal 2+. capillary refill normal <2 secs. GI - soft abdomen. no hepatosplenomegaly. Bowel sounds normoactive, peg tube in place Neurological - patient is nonverbal, quadriplegic, spontaneous eye opening, responds to mother on verbal command, clonus laboratory and microbiology Laboratory Tests 12/01/24 06:10 Test 12/01/24 06:10 Range/Units Serum Glucose 100 74-106 mg/dL Microbiology Date/Time Source Procedure Growth Status 11/30/24 10:33 Sputum Gram Stain Pending Resulted 11/30/24 10:33 Sputum Respiratory Culture - Preliminary Resulted 11/29/24 23:48 Nose MRSA Screen - Final Complete 11/29/24 09:21 Blood Blood Culture - Preliminary NO GROWTH AFTER 48 HOURS OF INCUBATION. Resulted Labs and/or images reviewed: Labs reviewed by me, Image(s) reviewed by me Problem List/Assessment/Plan Problem List/Assessment/Plan Assessment and Plan: Acute metabolic encephalopathy due to Sepsis Seizure disorder S/p traumatic brain injury S/p ventriculoperitoneal shunt Quadriplegic Possible aseptic meningitis, s/p LP IV fluids given - Lorazepam PRN - on Keppra 1000 mg b.i.d. - lacosamide 150 mg b.i.d. Acute on chronic hypoxic respiratory failure Possible aspiration pneumonia, ESBL ecoli, MDR pseudomonas Sepsis likely due to pneumonia s/p tracheostomy S/P bronchoscopy - chest x-ray shows Bilateral perihilar interstitial opacities and ill-defined opacities in the lung bases are nonspecific, may be infectious or inflammatory in nature - duo nebs q.6 hours - acetylcysteine - IV Zerbaxa 3gm Q 8 hours and IV gentamicin 80 mg Q 8 hours - blood culture negative H/o endocarditis(in 2014) - blood cultures negative - echo: no severe valve abnormalities noted s/p gastrostomy continue tube feedings Enoxaparin SC PUD prophylaxis: Protonix Plan discussed with Dr. Donovan Harper discussed with: Other (Mom) Dietary Evaluation Review Comments: 1) If patient remains NPO for more than 7 days, cosider EN/TPN to meet at least 75% estimated energy needs 2) If GI route is preferred, consider Jevity 1.2 @ 60 mL/hr goal rate as tolerated. TF regimen (including Pro-Stat @ 30 mL qd) will provide 1828 kcals, 95g Pro, and 1,162 mL free H2O per 24 hrs. Goal rate will meet ~98% estimated energy needs and 87% estimated protein needs. 3) Advance to regular diet when medically feasible, pending ST approval 4) Continue to monitor I&O, labs, and skin integrity Expected Outcomes/Goals: 1) patient to receive nutrition support within 7 days of NPO status 2) labs and wound to improve 3) diet to advance 4) f/u in 2-3 days Date of Service: Dec 01, 2024 Billing Provider: ELMER STEVENSON MD Common Visit Codes: [id number] INP/OBS CARE(HIGH) FLAKO WOODSON RESIDENT Dec 01, 2024 16:11 ELMER STEVENSON MD Dec 02, 2024 20:21
--- NOTE | 2024-12-01 22:40 | DVHPN2 ---
Progress Note - Dictate Date Seen: Dec 01, 2024 Medical Necessity Reason Pt with a Central, PICC or Fol: Yes The following are medically ne: Willis Catheter Reason for willis catheter: Strict I&O Subjective Patient seen and examined at bedside. On supplemental oxygen via trach. Overnight events reviewed. HPI: A 49-year-old man with past medical history of TBI and seizures, nonverbal, bedbound, who presented to ED via EMS on 11/29/24 with a chief complaint of decreased mental status. Per EMS, patient was just discharged from this facility (11/28/2024) after being here since 11/09/2024. Patient was septic and being treated with antibiotics. Apparently, patient had change in condition after discharge with not being able to track with his eyes and he was brought in for evaluation. HPI information limited due to patient condition and no family available. Patient was admitted for further care; and pulmonary consultation is requested for evaluation and management of acute on chronic hypoxic respiratory failure and sepsis. Review of Systems: 14-point review of systems negative unless otherwise noted above. Past Medical History: TBI, seizures, quadriplegia Past Surgical History: Tracheostomy Medications: Reviewed. Allergies: No known drug allergies. Family History: No family history of premature CAD. No family history of lung disorders. Social History: Nonsmoker. No alcohol or illicit drug use. vital signs Vital Sign Date Time Temp Pulse Resp B/P (MAP) Pulse Ox O2 Delivery O2 Flow Rate FiO2 12/01/24 20:00 72 12/01/24 18:39 18 98 12/01/24 18:29 Trach Collar 6.0 12/01/24 18:29 28 28 12/01/24 17:00 98.3 104/62 (76) 98.3 Total Intake and Output 11/30/24 11/30/24 12/01/24 15:00 23:00 07:00 Intake Total 350 ml 588 ml 1049 ml Output Total 1000 ml 400 ml Balance 350 ml -412 ml 649 ml medications Current Medications Medications Dose Ordered Sig/Ata Route Start Time Stop Time Status Last Admin Dose Admin Sodium Chloride 10 ml Q8HR IV 11/29/24 22:00 12/01/24 21:52 10 ML Acetaminophen 650 mg Q6HP PRN PO 11/29/24 17:00 Enoxaparin Sodium 40 mg DAILY SC 11/30/24 10:00 12/01/24 09:10 40 MG Albuterol 2.5 mg Q6HPRN PRN NEB 11/29/24 18:45 Cancel Ipratropium [place] 0.5 mg Q6HWA [facility] 11/30/24 06:00 12/01/24 18:29 0.5 MG Acetylcysteine 200 mg Q4HP PRN IN 11/29/24 18:45 Ascorbic Acid 500 mg BID GT 11/29/24 22:00 12/01/24 21:52 500 MG Baclofen 20 mg Q6HR GT 11/30/24 00:00 12/01/24 17:16 20 MG Chlorhexidine Gluconate 15 ml Q12HR [place] 11/29/24 22:00 Diphenhydramine HCl 25 mg Q8HPRN PRN PO 11/29/24 18:45 Multivitamins 1 tab DAILY GT 11/30/24 10:00 12/01/24 09:10 1 TAB Pantoprazole Sodium 40 mg DAILY PO 11/30/24 10:00 Hold 11/30/24 09:34 40 MG Polyethylene Glycol 17 gm DAILY PRN PO 11/29/24 18:45 Patient Own Medication 1 mg Q8HPRN PRN PO 11/30/24 08:15 Levetiracetam 1,000 mg BID 11/29/24 22:00 12/01/24 21:51 1,000 MG Zinc Sulfate 220 mg DAILY GT 11/30/24 10:00 12/01/24 09:11 220 MG Levalbuterol HCl 1.25 mg Q6HWA [facility] 11/30/24 06:00 12/01/24 18:29 1.25 MG Ipratropium [place] 0.5 mg Q4HPRN PRN [facility] 11/29/24 22:00 Ceftolozane/ Tazobactam 3 gm/ Dextrose 100 ml @ 100 mls/hr Q8HR IV 11/30/24 14:00 12/01/24 21:54 100 MLS/HR Patient Own Medication 10 mg BID 11/30/24 22:00 UNV Enteral Nutritional Formula 1,000 ml 60ML/HR GT 11/30/24 14:00 12/01/24 09:57 1,000 ML Lacosamide 150 mg BID GT 11/30/24 22:00 12/01/24 21:52 150 MG objective Gen.: Patient lying in bed in no apparent distress. On supplemental oxygen via trach. Head: Normocephalic, atraumatic. Eyes: EOMI/PERRLA. Ears: Normal hearing. Normal anatomy. Neck/trachea: Trach in place. Nose: Normal external anatomy. Mouth: Moist mucous membranes. Chest: Decreased air entry bilaterally. No wheezing or rhonchi. Cardiovascular: Positive S1, positive S2. Regular rate and rhythm. Abdomen: Positive bowel sounds in all 4 quadrants. Soft, non-tender, non- distended. : Deferred. Rectal: Deferred. Skin: Warm, dry. Intact. Extremities: 2+ radial pulses bilaterally. No lower extremity edema. Neuro: Awake, alert, nonverbal. No gross motor or sensory deficits. Cranial nerves II through XII intact. Patient is quadriplegic. laboratory and microbiology Laboratory Tests 12/01/24 06:10 Test 12/01/24 06:10 Range/Units Serum Glucose 100 74-106 mg/dL Assessment/Plan Impression: Acute on chronic hypoxic respiratory failure Dependence on supplemental oxygen Acute metabolic encephalopathy Sepsis Atelectasis Plan: Patient is s/p tracheostomy On supplemental oxygen via trach Titrate to keep O2 sats above 92%. Pt has a 7.0 cuffless Portex trach; T-Piece at 6 LPM/28%. Sitter at bedside. Trach care per RT. Head of bed elevation Aspiration precautions Continue bronchodilators/Mucomyst Continue antibiotics Monitor WBC - currently 15 K Blood cultures show no growth for 48 hours. Follow up sputum cx results - few GNRs seen Vitamin supplementation Antiepileptic medication Monitor renal function. Monitor electrolytes. Supplement as necessary. Monitor ins and outs. Tube feeds for nutritional support DVT prophylaxis - Lovenox. Prognosis: Poor given patient's multiple co-morbidities. Rest of plan per hospitalist and other consultants. Thank you Dr. Maurice for allowing me to participate in this patient's care. Further recommendations will depend on the patient's clinical course. Please do not hesitate to contact me if you have any questions or concerns. This medical document was created using an electronic medical record system with [employer] system. Although these documentations are being carefully reviewed, there may still be some phonetic and typographical changes. The errors are purely typographical, due to imperfection on the software program, and do not reflect any compromise in the patient's medical care. Dietary Evaluation Review Comments: 1) If patient remains NPO for more than 7 days, cosider EN/TPN to meet at least 75% estimated energy needs 2) If GI route is preferred, consider Jevity 1.2 @ 60 mL/hr goal rate as tolerated. TF regimen (including Pro-Stat @ 30 mL qd) will provide 1828 kcals, 95g Pro, and 1,162 mL free H2O per 24 hrs. Goal rate will meet ~98% estimated energy needs and 87% estimated protein needs. 3) Advance to regular diet when medically feasible, pending ST approval 4) Continue to monitor I&O, labs, and skin integrity Expected Outcomes/Goals: 1) patient to receive nutrition support within 7 days of NPO status 2) labs and wound to improve 3) diet to advance 4) f/u in 2-3 days Plan discussed with: Patient, Other (CRYSTAL Nielsen) HOMERO PENA MD Dec 01, 2024 22:40
[2024-12-02] VITALS (19 sets, daily range): BP systolic 108–152; BP diastolic 59–72; PULSE 55–87; RESP 17–19; TEMP 97.7–98.7; O2SAT 93–98
[2024-12-02 06:44] LABS: Nucleated Red Blood Cells % 0.1 %
[2024-12-02 06:45] LABS: Hematocrit 43.3 % (41.0-53.0); Hemoglobin 14.4 g/dL (13.5-17.5); Mean Corpuscular Hemoglobin 29.3 pg (28.0-32.0); Mean Corpuscular Volume 88.3 fL (80.0-100.0)
[2024-12-02 07:06] LABS: Alkaline Phosphatase 82 U/L (46-116); Anion Gap 8 (5-15); BUN/Creatinine Ratio 25.0 (10.0-20.0); Bilirubin, Total 0.3 mg/dL (0.2-1.0); Blood Urea Nitrogen 12 mg/dL (9-23); Carbon Dioxide 26 mmol/L (20-31); Chloride 106 mmol/L (98-107); Glucose 95 mg/dL (74-106); Potassium 4.0 mmol/L (3.5-5.1); Sodium 140 mmol/L (136-145)
[2024-12-02 07:09] LABS: Alanine Aminotransferase 61 U/L (7-40); Albumin 3.0 g/dL (3.2-4.8); Calcium 8.2 mg/dL (8.7-10.4); Total Protein 5.3 g/dL (5.7-8.2)
--- NOTE | 2024-12-02 16:31 | DVHPNRES ---
Progress Note Date Seen: Dec 02, 2024 Resident Creating Document: FLAKO WOODSON RESIDENT Medical Necessity Reason Pt with a Central, PICC or Fol: Yes The following are medically ne: Willis Catheter Reason for willis catheter: Strict I&O Subjective Review of Systems Patient was seen and examined at bedside. Patient is nonverbal at baseline, could not provide review of system. Patient is on 6L oxygen, s/p tracheostomy. Last 12 hr Tmax is 98.7. allergies negative for any growth in 24 hours of incubation and sputum culture demonstrated few Gram-negative rods. Today CBC showed WBC count 8.7 , stable H/H . Pulmonology and Infectious disease are on board. Patient is on IV Zerbaxa 3 g Q 8 hours and IV gentamicin 80 mg Q 8 hours as per ID recommendation. Objective vital signs Vital Sign Date Time Temp Pulse Resp B/P (MAP) Pulse Ox O2 Delivery O2 Flow Rate FiO2 12/02/24 13:00 98.7 73 19 146/63 (90) 97 98.7 12/02/24 12:43 T-piece 6 28 Cool Aerosol 28 Total Intake and Output 12/01/24 12/01/24 12/02/24 15:00 23:00 07:00 Intake Total 102 ml 202 ml 1000 ml Output Total 350 ml 550 ml Balance 102 ml -148 ml 450 ml medications Current Medications Medications Dose Ordered Sig/Ata Route Start Time Stop Time Status Last Admin Dose Admin Sodium Chloride 10 ml Q8HR IV 11/29/24 22:00 12/02/24 05:47 10 ML Acetaminophen 650 mg Q6HP PRN PO 11/29/24 17:00 Enoxaparin Sodium 40 mg DAILY SC 11/30/24 10:00 12/02/24 09:29 40 MG Albuterol 2.5 mg Q6HPRN PRN NEB 11/29/24 18:45 Cancel Ipratropium [place] 0.5 mg Q6HWA NEB 11/30/24 06:00 12/02/24 12:43 0.5 MG Acetylcysteine 200 mg Q4HP PRN IN 11/29/24 18:45 Ascorbic Acid 500 mg BID GT 11/29/24 22:00 12/02/24 09:29 500 MG Baclofen 20 mg Q6HR GT 11/30/24 00:00 12/02/24 12:25 20 MG Chlorhexidine Gluconate 15 ml Q12HR MT 11/29/24 22:00 Diphenhydramine HCl 25 mg Q8HPRN PRN PO 11/29/24 18:45 Multivitamins 1 tab DAILY GT 11/30/24 10:00 12/02/24 09:29 1 TAB Pantoprazole Sodium 40 mg DAILY PO 11/30/24 10:00 Hold 11/30/24 09:34 40 MG Polyethylene Glycol 17 gm DAILY PRN PO 11/29/24 18:45 Patient Own Medication 1 mg Q8HPRN PRN PO 11/30/24 08:15 Levetiracetam 1,000 mg BID GT 11/29/24 22:00 12/02/24 09:28 1,000 MG Zinc Sulfate 220 mg DAILY GT 11/30/24 10:00 12/02/24 09:29 220 MG Levalbuterol HCl 1.25 mg Q6HWA [facility] 11/30/24 06:00 12/02/24 12:43 1.25 MG Ipratropium [place] 0.5 mg Q4HPRN PRN NEB 11/29/24 22:00 Ceftolozane/ Tazobactam 3 gm/ Dextrose 100 ml @ 100 mls/hr Q8HR IV 11/30/24 14:00 12/02/24 15:53 100 MLS/HR Patient Own Medication 10 mg BID GT 11/30/24 22:00 UNV Enteral Nutritional Formula 1,000 ml 60ML/HR GT 11/30/24 14:00 12/01/24 09:57 1,000 ML Lacosamide 150 mg BID GT 11/30/24 22:00 12/02/24 09:29 150 MG Examination Examination Gen - no pallor, no icterus, no cyanosis, no clubbing, no LAD, Skin - Patients skin is warm and dry. generalized rash HEENT - status post cranial surgery with a left hemicranium, moist mucous membranes, trach cannula in place Neck - no LAD, no JVD Pulmonary - B/L course rales heard, no wheezing, no stridor. cardiovascular - regular S1,S2 heard, left lower sternal border systolic murmur heard. peripheral pulses normal radial 2+, pedal 2+. capillary refill normal <2 secs. GI - soft abdomen. no hepatosplenomegaly. Bowel sounds normoactive, peg tube in place Neurological - patient is nonverbal, quadriplegic, spontaneous eye opening, responds to mother on verbal command, clonus laboratory and microbiology Laboratory Tests 12/02/24 05:19 Test 12/02/24 05:19 Range/Units Serum Glucose 95 74-106 mg/dL Microbiology Date/Time Source Procedure Growth Status 11/30/24 10:33 Sputum Gram Stain - Final Resulted 11/30/24 10:33 Sputum Respiratory Culture - Preliminary Resulted 11/29/24 23:48 Nose MRSA Screen - Final Complete 11/29/24 09:21 Blood Blood Culture - Preliminary NO GROWTH AFTER 72 HOURS OF INCUBATION. Resulted Problem List/Assessment/Plan Problem List/Assessment/Plan Assessment and Plan: Acute metabolic encephalopathy due to Sepsis Seizure disorder S/p traumatic brain injury S/p ventriculoperitoneal shunt Quadriplegic Possible aseptic meningitis, s/p LP IV fluids given - Lorazepam PRN - on Keppra 1000 mg b.i.d. - lacosamide 150 mg b.i.d. Acute on chronic hypoxic respiratory failure Possible aspiration pneumonia, ESBL ecoli, MDR pseudomonas Sepsis likely due to pneumonia s/p tracheostomy S/P bronchoscopy - chest x-ray shows Bilateral perihilar interstitial opacities and ill-defined opacities in the lung bases are nonspecific, may be infectious or inflammatory in nature - duo nebs q.6 hours - acetylcysteine - IV Zerbaxa 3gm Q 8 hours and IV gentamicin 80 mg Q 8 hours - blood culture negative H/o endocarditis(in 2013) - blood cultures negative - echo: no severe valve abnormalities noted s/p gastrostomy continue tube feedings Enoxaparin SC PUD prophylaxis: Protonix Plan discussed with Dr. Man Plan discussed with: Other (RN) Dietary Evaluation Review Comments: 1) If patient remains NPO for more than 7 days, cosider EN/TPN to meet at least 75% estimated energy needs 2) If GI route is preferred, consider Jevity 1.2 @ 60 mL/hr goal rate as tolerated. TF regimen (including Pro-Stat @ 30 mL qd) will provide 1828 kcals, 95g Pro, and 1,162 mL free H2O per 24 hrs. Goal rate will meet ~98% estimated energy needs and 87% estimated protein needs. 3) Advance to regular diet when medically feasible, pending ST approval 4) Continue to monitor I&O, labs, and skin integrity Expected Outcomes/Goals: 1) patient to receive nutrition support within 7 days of NPO status 2) labs and wound to improve 3) diet to advance 4) f/u in 2-3 days Date of Service: Dec 02, 2024 Billing Provider: ELMER MAN MD Common Visit Codes: [id number] INP/OBS CARE(HIGH) FLAKO WOODSON RESIDENT Dec 02, 2024 16:31 ELMER MAN MD Dec 02, 2024 20:32
--- NOTE | 2024-12-02 23:48 | DVHPN2 ---
Progress Note - Dictate Date Seen: Dec 02, 2024 Medical Necessity Reason Pt with a Central, PICC or Fol: Yes The following are medically ne: Willis Catheter Reason for willis catheter: Strict I&O Subjective Patient seen and examined at bedside. On supplemental oxygen via trach. Overnight events reviewed. HPI: A 49-year-old man with past medical history of TBI and seizures, nonverbal, bedbound, who presented to ED via EMS on 11/29/24 with a chief complaint of decreased mental status. Per EMS, patient was just discharged from this facility (11/28/2024) after being here since 11/09/2024. Patient was septic and being treated with antibiotics. Apparently, patient had change in condition after discharge with not being able to track with his eyes and he was brought in for evaluation. HPI information limited due to patient condition and no family available. Patient was admitted for further care; and pulmonary consultation is requested for evaluation and management of acute on chronic hypoxic respiratory failure and sepsis. Review of Systems: 14-point review of systems negative unless otherwise noted above. Past Medical History: TBI, seizures, quadriplegia Past Surgical History: Tracheostomy Medications: Reviewed. Allergies: No known drug allergies. Family History: No family history of premature CAD. No family history of lung disorders. Social History: Nonsmoker. No alcohol or illicit drug use. vital signs Vital Sign Date Time Temp Pulse Resp B/P (MAP) Pulse Ox O2 Delivery O2 Flow Rate FiO2 12/02/24 21:00 98.2 70 17 114/64 (81) 96 98.2 12/02/24 20:00 Trach Collar 6 28 28 Total Intake and Output 12/01/24 12/01/24 12/02/24 15:00 23:00 07:00 Intake Total 102 ml 202 ml 1000 ml Output Total 350 ml 550 ml Balance 102 ml -148 ml 450 ml medications Current Medications Medications Dose Ordered Sig/Ata Route Start Time Stop Time Status Last Admin Dose Admin Sodium Chloride 10 ml Q8HR IV 11/29/24 22:00 12/02/24 21:58 10 ML Acetaminophen 650 mg Q6HP PRN PO 11/29/24 17:00 Enoxaparin Sodium 40 mg DAILY SC 11/30/24 10:00 12/02/24 09:29 40 MG Albuterol 2.5 mg Q6HPRN PRN NEB 11/29/24 18:45 Cancel Ipratropium [place] 0.5 mg Q6HWA [facility] 11/30/24 06:00 12/02/24 18:11 0.5 MG Acetylcysteine 200 mg Q4HP PRN IN 11/29/24 18:45 Ascorbic Acid 500 mg BID GT 11/29/24 22:00 12/02/24 21:47 500 MG Baclofen 20 mg Q6HR GT 11/30/24 00:00 12/02/24 17:51 20 MG Chlorhexidine Gluconate 15 ml Q12HR [place] 11/29/24 22:00 Diphenhydramine HCl 25 mg Q8HPRN PRN PO 11/29/24 18:45 Multivitamins 1 tab DAILY GT 11/30/24 10:00 12/02/24 09:29 1 TAB Pantoprazole Sodium 40 mg DAILY PO 11/30/24 10:00 Hold 11/30/24 09:34 40 MG Polyethylene Glycol 17 gm DAILY PRN PO 11/29/24 18:45 Patient Own Medication 1 mg Q8HPRN PRN PO 11/30/24 08:15 Levetiracetam 1,000 mg BID GT 11/29/24 22:00 12/02/24 21:47 1,000 MG Zinc Sulfate 220 mg DAILY GT 11/30/24 10:00 12/02/24 09:29 220 MG Levalbuterol HCl 1.25 mg Q6HWA [facility] 11/30/24 06:00 12/02/24 18:11 1.25 MG Ipratropium [place] 0.5 mg Q4HPRN PRN NEB 11/29/24 22:00 Ceftolozane/ Tazobactam 3 gm/ Dextrose 100 ml @ 100 mls/hr Q8HR IV 11/30/24 14:00 12/02/24 21:47 100 MLS/HR Patient Own Medication 10 mg BID GT 11/30/24 22:00 UNV Enteral Nutritional Formula 1,000 ml 60ML/HR GT 11/30/24 14:00 12/01/24 09:57 1,000 ML Lacosamide 150 mg BID GT 11/30/24 22:00 12/02/24 21:47 150 MG objective Gen.: Patient lying in bed in no apparent distress. On supplemental oxygen via trach. Head: Normocephalic, atraumatic. Eyes: EOMI/PERRLA. Ears: Normal hearing. Normal anatomy. Neck/trachea: Trach in place. Nose: Normal external anatomy. Mouth: Moist mucous membranes. Chest: Decreased air entry bilaterally. No wheezing or rhonchi. Cardiovascular: Positive S1, positive S2. Regular rate and rhythm. Abdomen: Positive bowel sounds in all 4 quadrants. Soft, non-tender, non- distended. : Deferred. Rectal: Deferred. Skin: Warm, dry. Intact. Extremities: 2+ radial pulses bilaterally. No lower extremity edema. Neuro: Awake, alert, nonverbal. No gross motor or sensory deficits. Cranial nerves II through XII intact. Patient is quadriplegic. laboratory and microbiology Laboratory Tests 12/02/24 05:19 Test 12/02/24 05:19 Range/Units Serum Glucose 95 74-106 mg/dL Assessment/Plan Impression: Acute on chronic hypoxic respiratory failure Dependence on supplemental oxygen Acute metabolic encephalopathy Sepsis Atelectasis Plan: Patient is s/p tracheostomy On supplemental oxygen via trach Titrate to keep O2 sats above 92%. Pt has a 7.0 cuffless Portex trach; T-Piece at 6 LPM/28%. Sitter at bedside. Trach care per RT. Pulmonary toileting Head of bed elevation Aspiration precautions Continue bronchodilators/Mucomyst Continue antibiotics WBC within normal limits Blood cultures show no growth for 72 hours. Follow up sputum cx results - few GNRs seen Vitamin supplementation Antiepileptic medication Monitor renal function. Monitor electrolytes. Supplement as necessary. Monitor ins and outs. Tube feeds for nutritional support DVT prophylaxis - Lovenox. Prognosis: Poor given patient's multiple co-morbidities. Rest of plan per hospitalist and other consultants. Thank you Dr. Maurice for allowing me to participate in this patient's care. Further recommendations will depend on the patient's clinical course. Please do not hesitate to contact me if you have any questions or concerns. This medical document was created using an electronic medical record system with [employer] dictation system. Although these documentations are being carefully reviewed, there may still be some phonetic and typographical changes. The errors are purely typographical, due to imperfection on the software program, and do not reflect any compromise in the patient's medical care. Dietary Evaluation Review Comments: 1) If patient remains NPO for more than 7 days, cosider EN/TPN to meet at least 75% estimated energy needs 2) If GI route is preferred, consider Jevity 1.2 @ 60 mL/hr goal rate as tolerated. TF regimen (including Pro-Stat @ 30 mL qd) will provide 1828 kcals, 95g Pro, and 1,162 mL free H2O per 24 hrs. Goal rate will meet ~98% estimated energy needs and 87% estimated protein needs. 3) Advance to regular diet when medically feasible, pending ST approval 4) Continue to monitor I&O, labs, and skin integrity Expected Outcomes/Goals: 1) patient to receive nutrition support within 7 days of NPO status 2) labs and wound to improve 3) diet to advance 4) f/u in 2-3 days Plan discussed with: Patient, Other (CRYSTAL Nielsen) HOMERO PENA MD Dec 02, 2024 23:48
[2024-12-03] VITALS (16 sets, daily range): BP systolic 110–153; BP diastolic 57–68; PULSE 56–153; RESP 16–67; TEMP 97.6–99.5; O2SAT 92–98
[2024-12-03 05:53] LABS: Hematocrit 44.4 % (41.0-53.0); Hemoglobin 14.7 g/dL (13.5-17.5); Mean Corpuscular Hemoglobin 29.1 pg (28.0-32.0); Mean Corpuscular Volume 87.8 fL (80.0-100.0); Nucleated Red Blood Cells % 0.0 %
[2024-12-03 06:07] LABS: Albumin 3.3 g/dL (3.2-4.8); Alkaline Phosphatase 92 U/L (46-116); BUN/Creatinine Ratio 25.5 (10.0-20.0); Bilirubin, Total 0.4 mg/dL (0.2-1.0); Blood Urea Nitrogen 12 mg/dL (9-23); Calcium 9.3 mg/dL (8.7-10.4); Glucose 103 mg/dL (74-106)
[2024-12-03 06:23] LABS: Chloride 104 mmol/L (98-107); Potassium 3.8 mmol/L (3.5-5.1); Sodium 141 mmol/L (136-145)
[2024-12-03 06:29] LABS: Alanine Aminotransferase 67 U/L (7-40); Total Protein 5.5 g/dL (5.7-8.2)
[2024-12-03 06:30] LABS: Anion Gap 7 (5-15); Carbon Dioxide 30 mmol/L (20-31)
--- NOTE | 2024-12-03 16:19 | DVHPNRES ---
Progress Note Date Seen: Dec 03, 2024 Resident Creating Document: FLAKO WOODSON Medical Necessity Reason Pt with a Central, PICC or Fol: Yes The following are medically ne: Willis Catheter Reason for willis catheter: Strict I&O Subjective Review of Systems Patient was seen and examined at bedside. Patient is nonverbal at baseline, could not provide review of system. Patient is on 6L oxygen, s/p tracheostomy. Last 12 hr Tmax is 99.5. Blood culture was negative for any growth in 24 hours of incubation and sputum culture demonstrated few Gram-negative rods. Today CBC showed WBC count 7.6 , stable H/H . Pulmonology and Infectious disease are on board. Patient is on IV Zerbaxa 3 g Q 8 hours as per ID recommendation. Objective vital signs Vital Sign Date Time Temp Pulse Resp B/P (MAP) Pulse Ox O2 Delivery O2 Flow Rate FiO2 12/03/24 16:00 92 Trach Collar 6 N/A 12/03/24 12:52 99.5 77 18 128/57 (80) 99.5 Total Intake and Output 12/02/24 12/02/24 12/03/24 15:00 23:00 07:00 Intake Total 200 ml 1000 ml Output Total 1100 ml 600 ml Balance -900 ml 400 ml medications Current Medications Medications Dose Ordered Sig/Ata Route Start Time Stop Time Status Last Admin Dose Admin Sodium Chloride 10 ml Q8HR IV 11/29/24 22:00 12/03/24 14:29 10 ML Acetaminophen 650 mg Q6HP PRN PO 11/29/24 17:00 Enoxaparin Sodium 40 mg DAILY SC 11/30/24 10:00 12/03/24 09:53 40 MG Albuterol 2.5 mg Q6HPRN PRN NEB 11/29/24 18:45 Cancel Ipratropium [place] 0.5 mg Q6HWA NEB 11/30/24 06:00 12/03/24 11:34 0.5 MG Acetylcysteine 200 mg Q4HP PRN IN 11/29/24 18:45 Ascorbic Acid 500 mg BID GT 11/29/24 22:00 12/03/24 09:52 500 MG Baclofen 20 mg Q6HR GT 11/30/24 00:00 12/03/24 11:34 20 MG Chlorhexidine Gluconate 15 ml Q12HR MT 11/29/24 22:00 Diphenhydramine HCl 25 mg Q8HPRN PRN PO 11/29/24 18:45 Multivitamins 1 tab DAILY GT 11/30/24 10:00 12/03/24 09:52 1 TAB Pantoprazole Sodium 40 mg DAILY PO 11/30/24 10:00 Hold 11/30/24 09:34 40 MG Polyethylene Glycol 17 gm DAILY PRN PO 11/29/24 18:45 Patient Own Medication 1 mg Q8HPRN PRN PO 11/30/24 08:15 Levetiracetam 1,000 mg BID GT 11/29/24 22:00 12/03/24 09:52 1,000 MG Zinc Sulfate 220 mg DAILY GT 11/30/24 10:00 12/03/24 09:52 220 MG Levalbuterol HCl 1.25 mg Q6HWA [facility] 11/30/24 06:00 12/03/24 11:34 1.25 MG Ipratropium [place] 0.5 mg Q4HPRN PRN [facility] 11/29/24 22:00 Ceftolozane/ Tazobactam 3 gm/ Dextrose 100 ml @ 100 mls/hr Q8HR IV 11/30/24 14:00 12/03/24 14:00 100 MLS/HR Patient Own Medication 10 mg BID 11/30/24 22:00 UNV Enteral Nutritional Formula 1,000 ml 60ML/HR 11/30/24 14:00 12/01/24 09:57 1,000 ML Lacosamide 150 mg BID GT 11/30/24 22:00 12/03/24 09:52 150 MG Examination Examination Gen - no pallor, no icterus, no cyanosis, no clubbing, no LAD, Skin - Patients skin is warm and dry. generalized rash HEENT - status post cranial surgery with a left hemicranium, moist mucous membranes, trach cannula in place Neck - no LAD, no JVD Pulmonary - B/L course rales heard, no wheezing, no stridor. cardiovascular - regular S1,S2 heard, left lower sternal border systolic murmur heard. peripheral pulses normal radial 2+, pedal 2+. capillary refill normal <2 secs. GI - soft abdomen. no hepatosplenomegaly. Bowel sounds normoactive, peg tube in place Neurological - patient is nonverbal, quadriplegic, spontaneous eye opening, responds to mother on verbal command, clonus laboratory and microbiology Laboratory Tests 12/03/24 05:13 Test 12/03/24 05:13 Range/Units Serum Glucose 103 74-106 mg/dL Microbiology Date/Time Source Procedure Growth Status 11/30/24 10:33 Sputum Gram Stain - Final Resulted 11/30/24 10:33 Sputum Respiratory Culture - Preliminary Resulted 11/29/24 23:48 Nose MRSA Screen - Final Complete 11/29/24 09:21 Blood Blood Culture - Preliminary NO GROWTH AFTER 72 HOURS OF INCUBATION. Resulted Labs and/or images reviewed: Labs reviewed by me, Image(s) reviewed by me Problem List/Assessment/Plan Problem List/Assessment/Plan Assessment and Plan: Acute metabolic encephalopathy due to Sepsis Seizure disorder S/p traumatic brain injury S/p ventriculoperitoneal shunt Quadriplegic Possible aseptic meningitis, s/p LP IV fluids given - Lorazepam PRN - on Keppra 1000 mg b.i.d. - lacosamide 150 mg b.i.d. Acute on chronic hypoxic respiratory failure Possible aspiration pneumonia, ESBL ecoli, MDR pseudomonas Sepsis likely due to pneumonia s/p tracheostomy S/P bronchoscopy - chest x-ray shows Bilateral perihilar interstitial opacities and ill-defined opacities in the lung bases are nonspecific, may be infectious or inflammatory in nature - duo nebs q.6 hours - acetylcysteine - IV Zerbaxa 3gm Q 8 hours - blood culture negative H/o endocarditis(in 2013) - blood cultures negative - echo: no severe valve abnormalities noted s/p gastrostomy continue tube feedings Enoxaparin [place] PUD prophylaxis: Protonix Plan discussed with Dr. Man Plan discussed with: Other (RN) My Orders My Orders Orders - FLAKO WOODSON RESIDENT Procedure Category Date Status Time * Evaporator Supervisor CONS 12/03/24 Transmitted Consult 14:19 Dietary Evaluation Review Comments: 1) If patient remains NPO for more than 7 days, cosider EN/TPN to meet at least 75% estimated energy needs 2) If GI route is preferred, consider Jevity 1.2 @ 60 mL/hr goal rate as tolerated. TF regimen (including Pro-Stat @ 30 mL qd) will provide 1828 kcals, 95g Pro, and 1,162 mL free H2O per 24 hrs. Goal rate will meet ~98% estimated energy needs and 87% estimated protein needs. 3) Advance to regular diet when medically feasible, pending ST approval 4) Continue to monitor I&O, labs, and skin integrity Expected Outcomes/Goals: 1) patient to receive nutrition support within 7 days of NPO status 2) labs and wound to improve 3) diet to advance 4) f/u in 2-3 days Date of Service: Dec 03, 2024 Billing Provider: ELMER MAN MD Common Visit Codes: [id number] INP/OBS CARE(HIGH) FLAKO WOODSON RESIDENT Dec 03, 2024 16:19 ELMER MAN MD Dec 03, 2024 16:32
[2024-12-03] MEDS: POLYETHYLENE GLYCOL 17 GM PWDR PO PRN (16:32)
[2024-12-03] MEDS: ACETAMINOPHEN 325 MG TAB PO PRN (17:21)
--- NOTE | 2024-12-03 20:16 | DVHPN2 ---
Progress Note - Dictate Date Seen: Dec 03, 2024 Medical Necessity Reason Pt with a Central, PICC or Fol: Yes The following are medically ne: Willis Catheter Reason for willis catheter: Strict I&O Subjective Patient seen and examined at bedside. On supplemental oxygen via trach. Overnight events reviewed. HPI: A 49-year-old man with past medical history of TBI and seizures, nonverbal, bedbound, who presented to ED via EMS on 11/29/24 with a chief complaint of decreased mental status. Per EMS, patient was just discharged from this facility (11/28/2024) after being here since 11/09/2024. Patient was septic and being treated with antibiotics. Apparently, patient had change in condition after discharge with not being able to track with his eyes and he was brought in for evaluation. HPI information limited due to patient condition and no family available. Patient was admitted for further care; and pulmonary consultation is requested for evaluation and management of acute on chronic hypoxic respiratory failure and sepsis. Review of Systems: 14-point review of systems negative unless otherwise noted above. Past Medical History: TBI, seizures, quadriplegia Past Surgical History: Tracheostomy Medications: Reviewed. Allergies: No known drug allergies. Family History: No family history of premature CAD. No family history of lung disorders. Social History: Nonsmoker. No alcohol or illicit drug use. vital signs Vital Sign Date Time Temp Pulse Resp B/P (MAP) Pulse Ox O2 Delivery O2 Flow Rate FiO2 12/03/24 18:35 97 T-piece 6.0 12/03/24 18:35 71 18 12/03/24 18:35 28 28 12/03/24 17:21 99.2 12/03/24 17:08 146/63 (90) Total Intake and Output 12/02/24 12/02/24 12/03/24 15:00 23:00 07:00 Intake Total 200 ml 1000 ml Output Total 1100 ml 600 ml Balance -900 ml 400 ml medications Current Medications Medications Dose Ordered Sig/Ata Route Start Time Stop Time Status Last Admin Dose Admin Sodium Chloride 10 ml Q8HR IV 11/29/24 22:00 12/03/24 14:29 10 ML Acetaminophen 650 mg Q6HP PRN PO 11/29/24 17:00 12/03/24 17:21 650 MG Enoxaparin Sodium 40 mg DAILY SC 11/30/24 10:00 12/03/24 09:53 40 MG Albuterol 2.5 mg Q6HPRN PRN NEB 11/29/24 18:45 Cancel Ipratropium [place] 0.5 mg Q6HWA [facility] 11/30/24 06:00 12/03/24 18:36 0.5 MG Acetylcysteine 200 mg Q4HP PRN IN 11/29/24 18:45 Ascorbic Acid 500 mg BID GT 11/29/24 22:00 12/03/24 09:52 500 MG Baclofen 20 mg Q6HR GT 11/30/24 00:00 12/03/24 17:43 20 MG Chlorhexidine Gluconate 15 ml Q12HR SC 11/29/24 22:00 Diphenhydramine HCl 25 mg Q8HPRN PRN PO 11/29/24 18:45 Multivitamins 1 tab DAILY GT 11/30/24 10:00 12/03/24 09:52 1 TAB Pantoprazole Sodium 40 mg DAILY PO 11/30/24 10:00 Hold 11/30/24 09:34 40 MG Polyethylene Glycol 17 gm DAILY PRN PO 11/29/24 18:45 12/03/24 16:32 17 GM Patient Own Medication 1 mg Q8HPRN PRN PO 11/30/24 08:15 Levetiracetam 1,000 mg BID 11/29/24 22:00 12/03/24 09:52 1,000 MG Zinc Sulfate 220 mg DAILY GT 11/30/24 10:00 12/03/24 09:52 220 MG Levalbuterol HCl 1.25 mg Q6HWA [facility] 11/30/24 06:00 12/03/24 18:35 1.25 MG Ipratropium [place] 0.5 mg Q4HPRN PRN NEB 11/29/24 22:00 Ceftolozane/ Tazobactam 3 gm/ Dextrose 100 ml @ 100 mls/hr Q8HR IV 11/30/24 14:00 12/03/24 14:00 100 MLS/HR Patient Own Medication 10 mg BID GT 11/30/24 22:00 UNV Enteral Nutritional Formula 1,000 ml 60ML/HR GT 11/30/24 14:00 12/01/24 09:57 1,000 ML Lacosamide 150 mg BID GT 11/30/24 22:00 12/03/24 09:52 150 MG objective Gen.: Patient lying in bed in no apparent distress. On supplemental oxygen via trach. Head: Normocephalic, atraumatic. Eyes: EOMI/PERRLA. Ears: Normal hearing. Normal anatomy. Neck/trachea: Trach in place. Nose: Normal external anatomy. Mouth: Moist mucous membranes. Chest: Decreased air entry bilaterally. No wheezing or rhonchi. Cardiovascular: Positive S1, positive S2. Regular rate and rhythm. Abdomen: Positive bowel sounds in all 4 quadrants. Soft, non-tender, non- distended. : Deferred. Rectal: Deferred. Skin: Warm, dry. Intact. Extremities: 2+ radial pulses bilaterally. No lower extremity edema. Neuro: Awake, alert, nonverbal. No gross motor or sensory deficits. Cranial nerves II through XII intact. Patient is quadriplegic. laboratory and microbiology Laboratory Tests 12/03/24 05:13 Test 12/03/24 05:13 Range/Units Serum Glucose 103 74-106 mg/dL Assessment/Plan Impression: Acute on chronic hypoxic respiratory failure Dependence on supplemental oxygen Acute metabolic encephalopathy Sepsis Atelectasis Events: Remains on supplemental oxygen 6 LPM via trach Taper O2 as tolerated Sitter at bedside. Trach care Pulmonary toileting Continue bronchodilators Mucomyst Continue antibiotics WBC within normal limits Blood cultures show no growth for 72 hours. Follow up sputum cx results - few GNRs seen Incentive spirometry Antiepileptic - [facility] Discharge planning in progress Arrange for antibiotics Labs and imaging reviewed. Rest of plan as noted below Plan: Patient is s/p tracheostomy On supplemental oxygen via trach Titrate to keep O2 sats above 92%. Pt has a 7.0 cuffless Portex trach; T-Piece at 6 LPM/28%. Trach care per RT. Pulmonary toileting Head of bed elevation Aspiration precautions Continue bronchodilators/Mucomyst Continue antibiotics Vitamin supplementation Antiepileptic medication Monitor renal function. Monitor electrolytes. Supplement as necessary. Monitor ins and outs. Tube feeds for nutritional support DVT prophylaxis - Lovenox. Prognosis: Poor given patient's multiple co-morbidities. Rest of plan per hospitalist and other consultants. Thank you Dr. Maurice for allowing me to participate in this patient's care. Further recommendations will depend on the patient's clinical course. Please do not hesitate to contact me if you have any questions or concerns. This medical document was created using an electronic medical record system with [employer] computerized dictation system. Although these documentations are being carefully reviewed, there may still be some phonetic and typographical changes. The errors are purely typographical, due to imperfection on the software program, and do not reflect any compromise in the patient's medical care. Dietary Evaluation Review Comments: 1) If patient remains NPO for more than 7 days, cosider EN/TPN to meet at least 75% estimated energy needs 2) If GI route is preferred, consider Jevity 1.2 @ 60 mL/hr goal rate as tolerated. TF regimen (including Pro-Stat @ 30 mL qd) will provide 1828 kcals, 95g Pro, and 1,162 mL free H2O per 24 hrs. Goal rate will meet ~98% estimated energy needs and 87% estimated protein needs. 3) Advance to regular diet when medically feasible, pending ST approval 4) Continue to monitor I&O, labs, and skin integrity Expected Outcomes/Goals: 1) patient to receive nutrition support within 7 days of NPO status 2) labs and wound to improve 3) diet to advance 4) f/u in 2-3 days Plan discussed with: Patient, Other (CRYSTAL Trejo) HOMERO PENA MD Dec 03, 2024 20:16
[2024-12-04] VITALS (14 sets, daily range): BP systolic 112–155; BP diastolic 59–64; PULSE 60–92; RESP 16–24; TEMP 98.1–99.3; O2SAT 94–98
[2024-12-04 06:00] LABS: Hematocrit 44.6 % (41.0-53.0); Hemoglobin 15.3 g/dL (13.5-17.5); Mean Corpuscular Hemoglobin 29.5 pg (28.0-32.0); Mean Corpuscular Volume 86.1 fL (80.0-100.0); Nucleated Red Blood Cells % 0.0 %
[2024-12-04 06:08] LABS: Albumin 3.4 g/dL (3.2-4.8); Alkaline Phosphatase 102 U/L (46-116); Anion Gap 7 (5-15); BUN/Creatinine Ratio 17.9 (10.0-20.0); Blood Urea Nitrogen 10 mg/dL (9-23); Calcium 9.4 mg/dL (8.7-10.4); Carbon Dioxide 30 mmol/L (20-31); Chloride 104 mmol/L (98-107); Glucose 98 mg/dL (74-106); Potassium 4.3 mmol/L (3.5-5.1); Sodium 141 mmol/L (136-145)
[2024-12-04 06:09] LABS: Bilirubin, Total 0.5 mg/dL (0.2-1.0)
[2024-12-04 06:14] LABS: Alanine Aminotransferase 85 U/L (7-40); Total Protein 5.7 g/dL (5.7-8.2)
--- NOTE | 2024-12-04 11:16 | DVHPNRES ---
Progress Note Date Seen: Dec 04, 2024 Resident Creating Document: FLAKO WOODSON RESIDENT Medical Necessity Reason Pt with a Central, PICC or Fol: Yes The following are medically ne: Willis Catheter Reason for willis catheter: Strict I&O Subjective Review of Systems Patient was seen and examined at bedside. Patient is nonverbal at baseline, could not provide review of system. Patient is on 5L oxygen, s/p tracheostomy. Last 12 hr Tmax is 99.5. Blood culture was negative for any growth in 24 hours of incubation and sputum culture demonstrated providencia staurtii, proteus mirabalis , ESBL. Today CBC showed WBC count 7.7 , stable H/H . Low-grade fever in last 12 hours and T-max is 100.4. Infectious disease recommended according to the recent respiratory culture it is colonization and patient does not need home IV antibiotic on discharge. Pulmonology and Infectious disease are on board. Patient is on IV Zerbaxa 3 g Q 8 hours as per ID recommendation. Objective vital signs Vital Sign Date Time Temp Pulse Resp B/P (MAP) Pulse Ox O2 Delivery O2 Flow Rate FiO2 12/04/24 09:55 97 Trach Collar 6 N/A 12/04/24 09:51 99.4 12/04/24 08:00 64 12/04/24 06:13 20 12/04/24 05:00 137/63 (87) Total Intake and Output 12/03/24 12/03/24 12/04/24 15:00 23:00 07:00 Intake Total 100 ml 1130 ml Output Total 1100 ml 950 ml Balance 100 ml -1100 ml 180 ml medications Current Medications Medications Dose Ordered Sig/Ata Route Start Time Stop Time Status Last Admin Dose Admin Sodium Chloride 10 ml Q8HR IV 11/29/24 22:00 12/04/24 05:28 10 ML Acetaminophen 650 mg Q6HP PRN PO 11/29/24 17:00 12/04/24 09:51 650 MG Enoxaparin Sodium 40 mg DAILY SC 11/30/24 10:00 12/04/24 09:49 40 MG Albuterol 2.5 mg Q6HPRN PRN NEB 11/29/24 18:45 Cancel Ipratropium [place] 0.5 mg Q6HWA NEB 11/30/24 06:00 12/04/24 06:13 0.5 MG Acetylcysteine 200 mg Q4HP PRN IN 11/29/24 18:45 Ascorbic Acid 500 mg BID GT 11/29/24 22:00 12/04/24 09:49 500 MG Baclofen 20 mg Q6HR GT 11/30/24 00:00 12/04/24 05:28 20 MG Chlorhexidine Gluconate 15 ml Q12HR MT 11/29/24 22:00 Diphenhydramine HCl 25 mg Q8HPRN PRN PO 11/29/24 18:45 Multivitamins 1 tab DAILY GT 11/30/24 10:00 12/04/24 09:50 1 TAB Pantoprazole Sodium 40 mg DAILY PO 11/30/24 10:00 Hold 11/30/24 09:34 40 MG Polyethylene Glycol 17 gm DAILY PRN PO 11/29/24 18:45 12/03/24 16:32 17 GM Patient Own Medication 1 mg Q8HPRN PRN PO 11/30/24 08:15 Levetiracetam 1,000 mg BID GT 11/29/24 22:00 12/04/24 09:50 1,000 MG Zinc Sulfate 220 mg DAILY GT 11/30/24 10:00 12/04/24 09:50 220 MG Levalbuterol HCl 1.25 mg Q6HWA [facility] 11/30/24 06:00 12/04/24 06:13 1.25 MG Ipratropium [place] 0.5 mg Q4HPRN PRN NEB 11/29/24 22:00 Ceftolozane/ Tazobactam 3 gm/ Dextrose 100 ml @ 100 mls/hr Q8HR IV 11/30/24 14:00 12/04/24 05:30 100 MLS/HR Patient Own Medication 10 mg BID GT 11/30/24 22:00 UNV Enteral Nutritional Formula 1,000 ml 60ML/HR GT 11/30/24 14:00 12/01/24 09:57 1,000 ML Lacosamide 150 mg BID GT 11/30/24 22:00 12/04/24 09:49 150 MG Examination Examination Gen - no pallor, no icterus, no cyanosis, no clubbing, no LAD, Skin - Patients skin is warm and dry. generalized rash HEENT - status post cranial surgery with a left hemicranium, moist mucous membranes, trach cannula in place Neck - no LAD, no JVD Pulmonary - B/L course rales heard, no wheezing, no stridor. cardiovascular - regular S1,S2 heard, left lower sternal border systolic murmur heard. peripheral pulses normal radial 2+, pedal 2+. capillary refill normal <2 secs. GI - soft abdomen. no hepatosplenomegaly. Bowel sounds normoactive, peg tube in place Neurological - patient is nonverbal, quadriplegic, spontaneous eye opening, responds to mother on verbal command, clonus laboratory and microbiology Laboratory Tests 12/04/24 05:23 Test 12/04/24 05:23 Range/Units Serum Glucose 98 74-106 mg/dL Microbiology Date/Time Source Procedure Growth Status 11/30/24 10:33 Sputum Gram Stain - Final Complete 11/30/24 10:33 Respiratory Culture - Final Providencia staurtii Proteus mirabilis Escherichia coli - ESBL Complete 11/29/24 23:48 Nose MRSA Screen - Final Complete 11/29/24 09:21 Blood Blood Culture - Final NO GROWTH AFTER 5 DAYS OF INCUBATION. Complete Labs and/or images reviewed: Labs reviewed by me, Image(s) reviewed by me Problem List/Assessment/Plan Problem List/Assessment/Plan Assessment and Plan: Acute metabolic encephalopathy due to Sepsis Seizure disorder S/p traumatic brain injury S/p ventriculoperitoneal shunt Quadriplegic Possible aseptic meningitis, s/p LP IV fluids given - Lorazepam PRN - on Keppra 1000 mg b.i.d. - lacosamide 150 mg b.i.d. Acute on chronic hypoxic respiratory failure Possible aspiration pneumonia, ESBL E. coli, MDR pseudomonas Sepsis likely due to pneumonia s/p tracheostomy S/P bronchoscopy - chest x-ray shows Bilateral perihilar interstitial opacities and ill-defined opacities in the lung bases are nonspecific, may be infectious or inflammatory in nature - duo nebs q.6 hours - acetylcysteine - IV Zebrax 3gm Q 8 hours - blood culture negative H/o endocarditis(in 2013) - blood cultures negative - echo: no severe valve abnormalities noted s/p gastrostomy continue tube feedings Enoxaparin SC PUD prophylaxis: Protonix Goals of care discussed with the patient's mother for 20 minutes; full code Plan discussed with Dr. Cueva Plan discussed with: Other (RN; mother) My Orders My Orders Orders - FLAKO WOODSON RESIDENT Procedure Category Date Status Time * Electrician CONS 12/03/24 Transmitted Consult 14:19 Dietary Evaluation Review Comments: 1) If patient remains NPO for more than 7 days, cosider EN/TPN to meet at least 75% estimated energy needs 2) If GI route is preferred, consider Jevity 1.2 @ 60 mL/hr goal rate as tolerated. TF regimen (including Pro-Stat @ 30 mL qd) will provide 1828 kcals, 95g Pro, and 1,162 mL free H2O per 24 hrs. Goal rate will meet ~98% estimated energy needs and 87% estimated protein needs. 3) Advance to regular diet when medically feasible, pending ST approval 4) Continue to monitor I&O, labs, and skin integrity Expected Outcomes/Goals: 1) patient to receive nutrition support within 7 days of NPO status 2) labs and wound to improve 3) diet to advance 4) f/u in 2-3 days Addendum Addendum Addendum I was physically present for the geiger portions of the service provided to patient by THE RESIDENT. I have reviewed the documentation, discussed the case with resident and agree with the resident's documentation except as noted. Also the patient's clinical case was discussed with the patient's nurse. This medical document was created using an electronic medical record system with computerized dictation system. Although this document has been carefully reviewed, there might still be some phonetic and typographical errors. These areas are purely typographical due to imperfections of the software programs, and do not reflect any compromise in the patient's medical care. Late signature. Date of Service: Dec 04, 2024 Billing Provider: LEANDER CUEVA MD Common Visit Codes: 05334-[id number] INP/OBS CARE(HIGH) Secondary Visit Codes: 79840-[id number] CARE PLAN 30 MINUTES (20 minutes) FLAKO WOODSON Dec 04, 2024 11:16 LEANDER CUEVA MD Dec 05, 2024 04:55
[2024-12-04 23:25] LABS: Urine Budding Yeast FEW /hpf (None Seen); Urine Protein, UAD TRACE (Negative)
--- NOTE | 2024-12-04 23:50 | DVHPN2 ---
Progress Note - Dictate Date Seen: Dec 04, 2024 Medical Necessity Reason Pt with a Central, PICC or Fol: Yes The following are medically ne: Willis Catheter Reason for willis catheter: Strict I&O Subjective Patient seen and examined at bedside. On supplemental oxygen via trach. Overnight events reviewed. HPI: A 49-year-old man with past medical history of TBI and seizures, nonverbal, bedbound, who presented to ED via EMS on 11/29/24 with a chief complaint of decreased mental status. Per EMS, patient was just discharged from this facility (11/28/2024) after being here since 11/09/2024. Patient was septic and being treated with antibiotics. Apparently, patient had change in condition after discharge with not being able to track with his eyes and he was brought in for evaluation. HPI information limited due to patient condition and no family available. Patient was admitted for further care; and pulmonary consultation is requested for evaluation and management of acute on chronic hypoxic respiratory failure and sepsis. Review of Systems: 14-point review of systems negative unless otherwise noted above. Past Medical History: TBI, seizures, quadriplegia Past Surgical History: Tracheostomy Medications: Reviewed. Allergies: No known drug allergies. Family History: No family history of premature CAD. No family history of lung disorders. Social History: Nonsmoker. No alcohol or illicit drug use. vital signs Vital Sign Date Time Temp Pulse Resp B/P (MAP) Pulse Ox O2 Delivery O2 Flow Rate FiO2 12/04/24 21:00 99.3 68 17 112/63 (79) 96 99.3 12/04/24 20:05 Trach Collar 6 28 28 Total Intake and Output 12/03/24 12/03/24 12/04/24 15:00 23:00 07:00 Intake Total 100 ml 1130 ml Output Total 1100 ml 950 ml Balance 100 ml -1100 ml 180 ml medications Current Medications Medications Dose Ordered Sig/Ata Route Start Time Stop Time Status Last Admin Dose Admin Sodium Chloride 10 ml Q8HR IV 11/29/24 22:00 12/04/24 21:45 10 ML Acetaminophen 650 mg Q6HP PRN PO 11/29/24 17:00 12/04/24 14:54 650 MG Enoxaparin Sodium 40 mg DAILY SC 11/30/24 10:00 12/04/24 09:49 40 MG Albuterol 2.5 mg Q6HPRN PRN NEB 11/29/24 18:45 Cancel Ipratropium [place] 0.5 mg Q6HWA NEB 11/30/24 06:00 12/04/24 18:41 0.5 MG Acetylcysteine 200 mg Q4HP PRN IN 11/29/24 18:45 Ascorbic Acid 500 mg BID GT 11/29/24 22:00 12/04/24 21:44 500 MG Baclofen 20 mg Q6HR GT 11/30/24 00:00 12/04/24 18:00 20 MG Chlorhexidine Gluconate 15 ml Q12HR MD 11/29/24 22:00 Diphenhydramine HCl 25 mg Q8HPRN PRN PO 11/29/24 18:45 Multivitamins 1 tab DAILY GT 11/30/24 10:00 12/04/24 09:50 1 TAB Pantoprazole Sodium 40 mg DAILY PO 11/30/24 10:00 Hold 11/30/24 09:34 40 MG Polyethylene Glycol 17 gm DAILY PRN PO 11/29/24 18:45 12/03/24 16:32 17 GM Patient Own Medication 1 mg Q8HPRN PRN PO 11/30/24 08:15 Levetiracetam 1,000 mg BID GT 11/29/24 22:00 12/04/24 21:44 1,000 MG Zinc Sulfate 220 mg DAILY GT 11/30/24 10:00 12/04/24 09:50 220 MG Levalbuterol HCl 1.25 mg Q6HWA [facility] 11/30/24 06:00 12/04/24 18:41 1.25 MG Ipratropium [place] 0.5 mg Q4HPRN PRN NEB 11/29/24 22:00 Ceftolozane/ Tazobactam 3 gm/ Dextrose 100 ml @ 100 mls/hr Q8HR IV 11/30/24 14:00 12/04/24 21:45 100 MLS/HR Patient Own Medication 10 mg BID GT 11/30/24 22:00 UNV Enteral Nutritional Formula 1,000 ml 60ML/HR GT 11/30/24 14:00 12/01/24 09:57 1,000 ML Lacosamide 150 mg BID GT 11/30/24 22:00 12/04/24 21:44 150 MG objective Gen.: Patient lying in bed in no apparent distress. On supplemental oxygen via trach. Head: Normocephalic, atraumatic. Eyes: EOMI/PERRLA. Ears: Normal hearing. Normal anatomy. Neck/trachea: Trach in place. Nose: Normal external anatomy. Mouth: Moist mucous membranes. Chest: Decreased air entry bilaterally. No wheezing or rhonchi. Cardiovascular: Positive S1, positive S2. Regular rate and rhythm. Abdomen: Positive bowel sounds in all 4 quadrants. Soft, non-tender, non- distended. : Deferred. Rectal: Deferred. Skin: Warm, dry. Intact. Extremities: 2+ radial pulses bilaterally. No lower extremity edema. Neuro: Awake, alert, nonverbal. No gross motor or sensory deficits. Cranial nerves II through XII intact. Patient is quadriplegic. laboratory and microbiology Laboratory Tests 12/04/24 05:23 Test 12/04/24 05:23 Range/Units Serum Glucose 98 74-106 mg/dL Assessment/Plan Impression: Acute on chronic hypoxic respiratory failure Dependence on supplemental oxygen Acute metabolic encephalopathy Sepsis Atelectasis Events: Remains on supplemental oxygen 6 LPM via trach Taper O2 as tolerated Sitter at bedside. Trach care Pulmonary toileting Continue bronchodilators Mucomyst Continue antibiotics Sputum cultures grew Providencia stuartii, Proteus mirabilis and ESBL E. coli WBC within normal limits Blood cultures show no growth after 5 days. ID recommendations appreciated Incentive spirometry Antiepileptic - Keppra Discharge planning in progress Arrange for antibiotics Labs and imaging reviewed. Rest of plan as noted below Plan: Patient is s/p tracheostomy On supplemental oxygen via trach Titrate to keep O2 sats above 92%. Pt has a 7.0 cuffless Portex trach; T-Piece at 6 LPM/28%. Trach care per RT. Pulmonary toileting Head of bed elevation Aspiration precautions Continue bronchodilators/Mucomyst Continue antibiotics Vitamin supplementation Antiepileptic medication Monitor renal function. Monitor electrolytes. Supplement as necessary. Monitor ins and outs. Tube feeds for nutritional support DVT prophylaxis - Lovenox. Prognosis: Poor given patient's multiple co-morbidities. Rest of plan per hospitalist and other consultants. Thank you Dr. Maurice for allowing me to participate in this patient's care. Further recommendations will depend on the patient's clinical course. Please do not hesitate to contact me if you have any questions or concerns. This medical document was created using an electronic medical record system with [employer] dictation system. Although these documentations are being carefully reviewed, there may still be some phonetic and typographical changes. The errors are purely typographical, due to imperfection on the software program, and do not reflect any compromise in the patient's medical care. Dietary Evaluation Review Comments: 1) If patient remains NPO for more than 7 days, cosider EN/TPN to meet at least 75% estimated energy needs 2) If GI route is preferred, consider Jevity 1.2 @ 60 mL/hr goal rate as tolerated. TF regimen (including Pro-Stat @ 30 mL qd) will provide 1828 kcals, 95g Pro, and 1,162 mL free H2O per 24 hrs. Goal rate will meet ~98% estimated energy needs and 87% estimated protein needs. 3) Advance to regular diet when medically feasible, pending ST approval 4) Continue to monitor I&O, labs, and skin integrity Expected Outcomes/Goals: 1) patient to receive nutrition support within 7 days of NPO status 2) labs and wound to improve 3) diet to advance 4) f/u in 2-3 days Plan discussed with: Patient, Other (CRYSTAL Trejo) HOMERO PENA MD Dec 04, 2024 23:49
[2024-12-05] VITALS (12 sets, daily range): BP systolic 109–133; BP diastolic 60–69; PULSE 63–94; RESP 16–19; TEMP 96.5–98.8; O2SAT 95–98
[2024-12-05 07:12] LABS: Chloride 104 mmol/L (98-107); Potassium 4.0 mmol/L (3.5-5.1); Sodium 140 mmol/L (136-145)
[2024-12-05 07:13] LABS: Anion Gap 7 (5-15); Carbon Dioxide 29 mmol/L (20-31)
[2024-12-05 07:18] LABS: BUN/Creatinine Ratio 18.5 (10.0-20.0); Blood Urea Nitrogen 10 mg/dL (9-23); Calcium 8.5 mg/dL (8.7-10.4); Glucose 102 mg/dL (74-106)
[2024-12-05 07:21] LABS: Hematocrit 43.7 % (41.0-53.0); Hemoglobin 14.6 g/dL (13.5-17.5); Mean Corpuscular Hemoglobin 29.3 pg (28.0-32.0); Mean Corpuscular Volume 87.7 fL (80.0-100.0); Nucleated Red Blood Cells % 0.1 %
--- NOTE | 2024-12-05 13:26 | DVHPN2 ---
Progress Note - Dictate Date Seen: Dec 05, 2024 Medical Necessity Reason Pt with a Central, PICC or Fol: Yes The following are medically ne: Willis Catheter Reason for willis catheter: Strict I&O vital signs Vital Sign Date Time Temp Pulse Resp B/P (MAP) Pulse Ox O2 Delivery O2 Flow Rate FiO2 12/05/24 12:00 97 Trach Collar 6.0 12/05/24 12:00 N/A 12/05/24 09:36 98.1 71 16 117/68 (84) 98.1 Total Intake and Output 12/04/24 12/04/24 12/05/24 15:00 23:00 07:00 Intake Total 100 ml 100 ml Output Total 1352 ml 700 ml Balance -1252 ml -600 ml medications Current Medications Medications Dose Ordered Sig/Ata Route Start Time Stop Time Status Last Admin Dose Admin Sodium Chloride 10 ml Q8HR IV 11/29/24 22:00 12/05/24 05:16 10 ML Acetaminophen 650 mg Q6HP PRN PO 11/29/24 17:00 12/04/24 14:54 650 MG Enoxaparin Sodium 40 mg DAILY SC 11/30/24 10:00 12/05/24 09:23 40 MG Albuterol 2.5 mg Q6HPRN PRN NEB 11/29/24 18:45 Cancel Ipratropium [place] 0.5 mg Q6HWA NEB 11/30/24 06:00 12/05/24 11:59 0.5 MG Acetylcysteine 200 mg Q4HP PRN IN 11/29/24 18:45 Ascorbic Acid 500 mg BID GT 11/29/24 22:00 12/05/24 09:23 500 MG Baclofen 20 mg Q6HR GT 11/30/24 00:00 12/05/24 12:51 20 MG Chlorhexidine Gluconate 15 ml Q12HR MT 11/29/24 22:00 12/05/24 09:50 15 ML Diphenhydramine HCl 25 mg Q8HPRN PRN PO 11/29/24 18:45 Multivitamins 1 tab DAILY GT 11/30/24 10:00 12/05/24 09:23 1 TAB Pantoprazole Sodium 40 mg DAILY PO 11/30/24 10:00 Hold 11/30/24 09:34 40 MG Polyethylene Glycol 17 gm DAILY PRN PO 11/29/24 18:45 12/03/24 16:32 17 GM Patient Own Medication 1 mg Q8HPRN PRN PO 11/30/24 08:15 Levetiracetam 1,000 mg BID GT 11/29/24 22:00 12/05/24 09:23 1,000 MG Zinc Sulfate 220 mg DAILY GT 11/30/24 10:00 12/05/24 09:23 220 MG Levalbuterol HCl 1.25 mg Q6HWA NEB 11/30/24 06:00 12/05/24 12:00 1.25 MG Ipratropium [place] 0.5 mg Q4HPRN PRN NEB 11/29/24 22:00 Ceftolozane/ Tazobactam 3 gm/ Dextrose 100 ml @ 100 mls/hr Q8HR IV 11/30/24 14:00 12/05/24 05:16 100 MLS/HR Patient Own Medication 10 mg BID GT 11/30/24 22:00 UNV Enteral Nutritional Formula 1,000 ml 60ML/HR GT 11/30/24 14:00 12/05/24 10:59 1,000 ML Lacosamide 150 mg BID GT 11/30/24 22:00 12/05/24 09:23 150 MG laboratory and microbiology Laboratory Tests 12/05/24 06:08 Test 12/05/24 06:08 Range/Units Serum Glucose 102 74-106 mg/dL Assessment/Plan Impression: Acute on chronic hypoxic respiratory failure Dependence on supplemental oxygen Acute metabolic encephalopathy Sepsis Atelectasis Events: Remains on supplemental oxygen 6 LPM via trach Taper O2 as tolerated Sitter at bedside. Trach care Pulmonary toileting Continue bronchodilators Mucomyst Continue antibiotics Sputum cultures grew Providencia stuartii, Proteus mirabilis and ESBL E. coli WBC within normal limits Blood cultures show no growth after 5 days. ID recommendations appreciated Incentive spirometry [facility] Discharge planning in progress Labs and imaging reviewed. Dietary Evaluation Review Comments: 1) If patient remains NPO for more than 7 days, cosider EN/TPN to meet at least 75% estimated energy needs 2) If GI route is preferred, consider Jevity 1.2 @ 60 mL/hr goal rate as tolerated. TF regimen (including Pro-Stat @ 30 mL qd) will provide 1828 kcals, 95g Pro, and 1,162 mL free H2O per 24 hrs. Goal rate will meet ~98% estimated energy needs and 87% estimated protein needs. 3) Advance to regular diet when medically feasible, pending ST approval 4) Continue to monitor I&O, labs, and skin integrity Expected Outcomes/Goals: 1) patient to receive nutrition support within 7 days of NPO status 2) labs and wound to improve 3) diet to advance 4) f/u in 2-3 days Plan discussed with: Patient SCOTT MCLEOD MD Dec 05, 2024 13:26
--- NOTE | 2024-12-05 16:31 | DVHPNRES ---
Progress Note Date Seen: Dec 05, 2024 Resident Creating Document: FLAKO WOODSON RESIDENT Medical Necessity Reason Pt with a Central, PICC or Fol: Yes The following are medically ne: Willis Catheter Reason for willis catheter: Strict I&O Subjective Review of Systems Patient was seen and examined at bedside. Patient is nonverbal at baseline, could not provide review of system. Patient is on 6L oxygen, s/p tracheostomy. Last 12 hr Tmax is 99.3. Blood culture was negative for any growth in 24 hours of incubation and sputum culture demonstrated Providencia stuartii, proteus mirabilis , ESBL. Today CBC showed WBC count 9.1 , stable H/H . Patient has one episode fever 100.4. yesterday. Infectious disease recommended according to the recent respiratory culture it is colonization and patient does not need home IV antibiotic on discharge, discontinued IV Zebrax and change the Willis catheter. Pulmonology and Infectious disease are on board. Spoke with the patient's mom Amelia on the bedside regarding patient's current condition and explained recent culture result, blood work result, Infectious Disease recommendations and follow plan. She understands the plan. We will monitor patient vital closely and awaiting for urine culture for further management of the patient. Objective vital signs Vital Sign Date Time Temp Pulse Resp B/P (MAP) Pulse Ox O2 Delivery O2 Flow Rate FiO2 12/05/24 14:29 96.5 68 17 118/64 (82) 97 96.5 12/05/24 12:00 Trach Collar 6.0 12/05/24 12:00 N/A Total Intake and Output 12/04/24 12/04/24 12/05/24 15:00 23:00 07:00 Intake Total 100 ml 100 ml Output Total 1352 ml 700 ml Balance -1252 ml -600 ml medications Current Medications Medications Dose Ordered Sig/Ata Route Start Time Stop Time Status Last Admin Dose Admin Sodium Chloride 10 ml Q8HR IV 11/29/24 22:00 12/05/24 14:13 10 ML Acetaminophen 650 mg Q6HP PRN PO 11/29/24 17:00 12/04/24 14:54 650 MG Enoxaparin Sodium 40 mg DAILY SC 11/30/24 10:00 12/05/24 09:23 40 MG Albuterol 2.5 mg Q6HPRN PRN NEB 11/29/24 18:45 Cancel Ipratropium [place] 0.5 mg Q6HWA [facility] 11/30/24 06:00 12/05/24 11:59 0.5 MG Acetylcysteine 200 mg Q4HP PRN IN 11/29/24 18:45 Ascorbic Acid 500 mg BID GT 11/29/24 22:00 12/05/24 09:23 500 MG Baclofen 20 mg Q6HR GT 11/30/24 00:00 12/05/24 12:51 20 MG Chlorhexidine Gluconate 15 ml Q12HR [place] 11/29/24 22:00 12/05/24 09:50 15 ML Diphenhydramine HCl 25 mg Q8HPRN PRN PO 11/29/24 18:45 Multivitamins 1 tab DAILY GT 11/30/24 10:00 12/05/24 09:23 1 TAB Pantoprazole Sodium 40 mg DAILY PO 11/30/24 10:00 Hold 11/30/24 09:34 40 MG Polyethylene Glycol 17 gm DAILY PRN PO 11/29/24 18:45 12/03/24 16:32 17 GM Patient Own Medication 1 mg Q8HPRN PRN PO 11/30/24 08:15 Levetiracetam 1,000 mg BID GT 11/29/24 22:00 12/05/24 09:23 1,000 MG Zinc Sulfate 220 mg DAILY GT 11/30/24 10:00 12/05/24 09:23 220 MG Levalbuterol HCl 1.25 mg Q6HWA [facility] 11/30/24 06:00 12/05/24 12:00 1.25 MG Ipratropium [place] 0.5 mg Q4HPRN PRN NEB 11/29/24 22:00 Ceftolozane/ Tazobactam 3 gm/ Dextrose 100 ml @ 100 mls/hr Q8HR IV 11/30/24 14:00 12/05/24 14:13 100 MLS/HR Patient Own Medication 10 mg BID 11/30/24 22:00 UNV Enteral Nutritional Formula 1,000 ml 60ML/HR GT 11/30/24 14:00 12/05/24 10:59 1,000 ML Lacosamide 150 mg BID GT 11/30/24 22:00 12/05/24 09:23 150 MG Examination Examination Gen - no pallor, no icterus, no cyanosis, no clubbing, no LAD, Skin - Patients skin is warm and dry. generalized rash HEENT - status post cranial surgery with a left hemicranium, moist mucous membranes, trach cannula in place Neck - no LAD, no JVD Pulmonary - B/L course rales heard, no wheezing, no stridor. cardiovascular - regular S1,S2 heard, left lower sternal border systolic murmur heard. peripheral pulses normal radial 2+, pedal 2+. capillary refill normal <2 secs. GI - soft abdomen. no hepatosplenomegaly. Bowel sounds normoactive, PEG tube in place Neurological - patient is nonverbal, quadriplegic, spontaneous eye opening, responds to mother on verbal command, clonus laboratory and microbiology Laboratory Tests 12/05/24 06:08 Test 12/05/24 06:08 Range/Units Serum Glucose 102 74-106 mg/dL Microbiology Date/Time Source Procedure Growth Status 11/30/24 10:33 Sputum Gram Stain - Final Complete 11/30/24 10:33 Respiratory Culture - Final Providencia staurtii Proteus mirabilis Escherichia coli - ESBL Complete 11/29/24 23:48 Nose MRSA Screen - Final Complete 11/29/24 09:21 Blood Blood Culture - Final NO GROWTH AFTER 5 DAYS OF INCUBATION. Complete Labs and/or images reviewed: Labs reviewed by me, Image(s) reviewed by me Problem List/Assessment/Plan Problem List/Assessment/Plan Assessment and Plan: Acute metabolic encephalopathy due to Sepsis Seizure disorder S/p traumatic brain injury S/p ventriculoperitoneal shunt Quadriplegic Possible aseptic meningitis, s/p LP IV fluids given - Lorazepam PRN - on Keppra 1000 mg b.i.d. - lacosamide 150 mg b.i.d. Acute complicated UTI likely secondary to indwelling willis - U/A consistent with UTI - Pending urine bacterial culture - change the Willis Acute on chronic hypoxic respiratory failure Possible aspiration pneumonia, ESBL ecoli, MDR pseudomonas Sepsis likely due to pneumonia s/p tracheostomy S/P bronchoscopy - chest x-ray shows Bilateral perihilar interstitial opacities and ill-defined opacities in the lung bases are nonspecific, may be infectious or inflammatory in nature - duo nebs q.6 hours - acetylcysteine - blood culture negative - Sputum culture on 11/30/24 demonstrated Providencia stuartii, proteus mirabilis , ESBL - As per ID recommendation its colonization, patient does not need any iv antibiotics now - Discontinued IV Zebrax 3gm Q 8 hours H/o endocarditis(in 2013) - blood cultures negative - echo: no severe valve abnormalities noted s/p gastrostomy continue tube feedings Enoxaparin SC PUD prophylaxis: Protonix Plan discussed with Dr. Cueva Plan discussed with: Other (Mom, RN) My Orders My Orders Orders - FLAKO WOODSON Procedure Category Date Status Time Urine Bacterial [place] 12/05/24 Uncollected Culture 06:53 Dietary Evaluation Review Comments: 1) If patient remains NPO for more than 7 days, cosider EN/TPN to meet at least 75% estimated energy needs 2) If GI route is preferred, consider Jevity 1.2 @ 60 mL/hr goal rate as tolerated. TF regimen (including Pro-Stat @ 30 mL qd) will provide 1828 kcals, 95g Pro, and 1,162 mL free H2O per 24 hrs. Goal rate will meet ~98% estimated energy needs and 87% estimated protein needs. 3) Advance to regular diet when medically feasible, pending ST approval 4) Continue to monitor I&O, labs, and skin integrity Expected Outcomes/Goals: 1) patient to receive nutrition support within 7 days of NPO status 2) labs and wound to improve 3) diet to advance 4) f/u in 2-3 days Addendum Addendum Addendum I was physically present for the geiger portions of the service provided to patient by THE RESIDENT. I have reviewed the documentation, discussed the case with resident and agree with the resident's documentation except as noted. Also the patient's clinical case was discussed with the patient's nurse. This medical document was created using an electronic medical record system with computerized dictation system. Although this document has been carefully reviewed, there might still be some phonetic and typographical errors. These areas are purely typographical due to imperfections of the software programs, and do not reflect any compromise in the patient's medical care. Late signature. Date of Service: Dec 05, 2024 Billing Provider: LEANDER CUEVA MD Common Visit Codes: 18914-[id number] INP/OBS CARE(HIGH) FLAKO WOODSON RESIDENT Dec 05, 2024 16:31 LEANDER CUEVA MD Dec 06, 2024 14:34
[2024-12-06] VITALS (12 sets, daily range): BP systolic 114–123; BP diastolic 64–76; PULSE 62–82; RESP 16–20; TEMP 97.7–98.8; O2SAT 96–99
[2024-12-06 07:43] LABS: Hematocrit 44.8 % (41.0-53.0); Hemoglobin 15.1 g/dL (13.5-17.5); Mean Corpuscular Hemoglobin 29.3 pg (28.0-32.0); Mean Corpuscular Volume 87.1 fL (80.0-100.0); Nucleated Red Blood Cells % 0.2 %
[2024-12-06 07:51] LABS: Anion Gap 9 (5-15); Carbon Dioxide 27 mmol/L (20-31); Chloride 103 mmol/L (98-107); Potassium 4.2 mmol/L (3.5-5.1); Sodium 139 mmol/L (136-145)
[2024-12-06 07:52] LABS: Calcium 9.4 mg/dL (8.7-10.4)
[2024-12-06 07:57] LABS: BUN/Creatinine Ratio 17.2 (10.0-20.0); Blood Urea Nitrogen 10 mg/dL (9-23); Glucose 97 mg/dL (74-106)
--- NOTE | 2024-12-06 13:27 | DVHPN2 ---
Progress Note - Dictate Date Seen: Dec 06, 2024 Medical Necessity Reason Pt with a Central, PICC or Fol: Yes The following are medically ne: Willis Catheter Reason for willis catheter: Strict I&O vital signs Vital Sign Date Time Temp Pulse Resp B/P (MAP) Pulse Ox O2 Delivery O2 Flow Rate FiO2 12/06/24 12:58 98.3 76 17 123/67 (85) 96 98.3 12/06/24 11:30 T-piece 6.0 12/06/24 11:30 28 28 Total Intake and Output 12/05/24 12/05/24 12/06/24 15:00 23:00 07:00 Intake Total 1560 ml 0 ml Output Total 1900 ml 450 ml Balance -340 ml -450 ml medications Current Medications Medications Dose Ordered Sig/Ata Route Start Time Stop Time Status Last Admin Dose Admin Sodium Chloride 10 ml Q8HR IV 11/29/24 22:00 12/06/24 11:37 10 ML Acetaminophen 650 mg Q6HP PRN PO 11/29/24 17:00 12/04/24 14:54 650 MG Enoxaparin Sodium 40 mg DAILY SC 11/30/24 10:00 12/06/24 09:36 40 MG Albuterol 2.5 mg Q6HPRN PRN NEB 11/29/24 18:45 Cancel Ipratropium [place] 0.5 mg Q6HWA NEB 11/30/24 06:00 12/06/24 11:30 0.5 MG Acetylcysteine 200 mg Q4HP PRN IN 11/29/24 18:45 Ascorbic Acid 500 mg BID GT 11/29/24 22:00 12/06/24 09:35 500 MG Baclofen 20 mg Q6HR GT 11/30/24 00:00 12/06/24 11:37 20 MG Chlorhexidine Gluconate 15 ml Q12HR MT 11/29/24 22:00 12/06/24 09:36 15 ML Diphenhydramine HCl 25 mg Q8HPRN PRN PO 11/29/24 18:45 Multivitamins 1 tab DAILY GT 11/30/24 10:00 12/06/24 09:35 1 TAB Pantoprazole Sodium 40 mg DAILY PO 11/30/24 10:00 Hold 11/30/24 09:34 40 MG Polyethylene Glycol 17 gm DAILY PRN PO 11/29/24 18:45 12/03/24 16:32 17 GM Patient Own Medication 1 mg Q8HPRN PRN PO 11/30/24 08:15 Levetiracetam 1,000 mg BID GT 11/29/24 22:00 12/06/24 09:36 1,000 MG Zinc Sulfate 220 mg DAILY GT 11/30/24 10:00 12/06/24 09:35 220 MG Levalbuterol HCl 1.25 mg Q6HWA [facility] 11/30/24 06:00 12/06/24 11:30 1.25 MG Ipratropium [place] 0.5 mg Q4HPRN PRN NEB 11/29/24 22:00 Patient Own Medication 10 mg BID GT 11/30/24 22:00 UNV Enteral Nutritional Formula 1,000 ml 60ML/HR GT 11/30/24 14:00 12/06/24 08:37 1,000 ML Lacosamide 150 mg BID GT 11/30/24 22:00 12/06/24 09:36 150 MG laboratory and microbiology Laboratory Tests 12/06/24 06:29 Test 12/06/24 06:29 Range/Units Serum Glucose 97 74-106 mg/dL Assessment/Plan Impression: Acute on chronic hypoxic respiratory failure Dependence on supplemental oxygen Acute metabolic encephalopathy Sepsis Atelectasis Patient seen and examined Events: Low oxygen requirements Tolerating 6 LPM via trach No distress Labs and imaging reviewed Management Supplemental oxygen Continue bronchodilators Mucomyst Continue antibiotics ID recommendations appreciated Incentive spirometry Antiepileptics as ordered DVT prophylaxis Dietary Evaluation Review Comments: 1) If patient remains NPO for more than 7 days, cosider EN/TPN to meet at least 75% estimated energy needs 2) If GI route is preferred, consider Jevity 1.2 @ 60 mL/hr goal rate as tolerated. TF regimen (including Pro-Stat @ 30 mL qd) will provide 1828 kcals, 95g Pro, and 1,162 mL free H2O per 24 hrs. Goal rate will meet ~98% estimated energy needs and 87% estimated protein needs. 3) Advance to regular diet when medically feasible, pending ST approval 4) Continue to monitor I&O, labs, and skin integrity Expected Outcomes/Goals: 1) patient to receive nutrition support within 7 days of NPO status 2) labs and wound to improve 3) diet to advance 4) f/u in 2-3 days Plan discussed with: Patient SCOTT MCLEOD MD Dec 06, 2024 13:27
--- NOTE | 2024-12-06 16:04 | DVHPNRES ---
Progress Note Date Seen: Dec 06, 2024 Resident Creating Document: MATEO RICHARDS RESIDENT Medical Necessity Reason Pt with a Central, PICC or Fol: Yes The following are medically ne: Willis Catheter Reason for willis catheter: Strict I&O Subjective Review of Systems Patient was seen and examined at bedside. Patient is nonverbal at baseline, could not provide review of system. Patient was seen at bedside. Nurse reported no overnight events. CBC showed WBC count 8.8, with stable H&H. All Lab reports are unremarkable. Called patient's mom Amelia on bedside and explained vitals, blood work results, culture results, condition of patient. We will monitor Patient vitals closely and awaiting final urine culture results tommorow for further treatment of patient. She understands the plan. Objective vital signs Vital Sign Date Time Temp Pulse Resp B/P (MAP) Pulse Ox O2 Delivery O2 Flow Rate FiO2 12/06/24 12:58 98.3 76 17 123/67 (85) 96 98.3 12/06/24 11:30 T-piece 6.0 12/06/24 11:30 28 28 Total Intake and Output 12/05/24 12/05/24 12/06/24 15:00 23:00 07:00 Intake Total 1560 ml 0 ml Output Total 1900 ml 450 ml Balance -340 ml -450 ml medications Current Medications Medications Dose Ordered Sig/Ata Route Start Time Stop Time Status Last Admin Dose Admin Sodium Chloride 10 ml Q8HR IV 11/29/24 22:00 12/06/24 11:37 10 ML Acetaminophen 650 mg Q6HP PRN PO 11/29/24 17:00 12/04/24 14:54 650 MG Enoxaparin Sodium 40 mg DAILY SC 11/30/24 10:00 12/06/24 09:36 40 MG Albuterol 2.5 mg Q6HPRN PRN NEB 11/29/24 18:45 Cancel Ipratropium [place] 0.5 mg Q6HWA NEB 11/30/24 06:00 12/06/24 11:30 0.5 MG Acetylcysteine 200 mg Q4HP PRN IN 11/29/24 18:45 Ascorbic Acid 500 mg BID GT 11/29/24 22:00 12/06/24 09:35 500 MG Baclofen 20 mg Q6HR GT 11/30/24 00:00 12/06/24 11:37 20 MG Chlorhexidine Gluconate 15 ml Q12HR MT 11/29/24 22:00 12/06/24 09:36 15 ML Diphenhydramine HCl 25 mg Q8HPRN PRN PO 11/29/24 18:45 Multivitamins 1 tab DAILY GT 11/30/24 10:00 12/06/24 09:35 1 TAB Pantoprazole Sodium 40 mg DAILY PO 11/30/24 10:00 Hold 11/30/24 09:34 40 MG Polyethylene Glycol 17 gm DAILY PRN PO 11/29/24 18:45 12/03/24 16:32 17 GM Patient Own Medication 1 mg Q8HPRN PRN PO 11/30/24 08:15 Levetiracetam 1,000 mg BID GT 11/29/24 22:00 12/06/24 09:36 1,000 MG Zinc Sulfate 220 mg DAILY GT 11/30/24 10:00 12/06/24 09:35 220 MG Levalbuterol HCl 1.25 mg Q6HWA [facility] 11/30/24 06:00 12/06/24 11:30 1.25 MG Ipratropium [place] 0.5 mg Q4HPRN PRN NEB 11/29/24 22:00 Patient Own Medication 10 mg BID GT 11/30/24 22:00 UNV Enteral Nutritional Formula 1,000 ml 60ML/HR 11/30/24 14:00 12/06/24 08:37 1,000 ML Lacosamide 150 mg BID 11/30/24 22:00 12/06/24 09:36 150 MG Examination General: Patient alert and oriented in person, place and time. Patient following commands. HEENT: Normocephalic, atraumatic, moist mucous membranes Respiratory/pulmonary: B/L course rales heard, no wheezing, no stridor. Cardiovascular: Normal heart sounds S1 and S2 with no associated murmurs Abdomen: Abdomen nondistended, there is no pain to palpation in any of the abdominal quadrants, no palpable masses. Extremities: There is no peripheral edema present at the lower extremities. Peripheral Pulses: 3+ Radial (R). 3+ Radial (L). 3+ Dorsalis pedis (R). 3+ Dorsalis pedis(L) Skin: No rashes or pruritus, there is no sacral edema present at this time. Neurological: patient is nonverbal, quadriplegic, spontaneous eye opening, responds to mother on verbal command, clonus laboratory and microbiology Laboratory Tests 12/06/24 06:29 Test 12/06/24 06:29 Range/Units Serum Glucose 97 74-106 mg/dL Microbiology Date/Time Source Procedure Growth Status 12/05/24 19:50 Voided Urine Urine Culture - Preliminary Resulted 11/30/24 10:33 Sputum Gram Stain - Final Complete 11/30/24 10:33 Respiratory Culture - Final Providencia staurtii Proteus mirabilis Escherichia coli - ESBL Complete 11/29/24 23:48 Nose MRSA Screen - Final Complete 11/29/24 09:21 Blood Blood Culture - Final NO GROWTH AFTER 5 DAYS OF INCUBATION. Complete Problem List/Assessment/Plan Problem List/Assessment/Plan Acute metabolic encephalopathy due to Sepsis Seizure disorder S/p traumatic brain injury S/p ventriculoperitoneal shunt Quadriplegic Possible aseptic meningitis, s/p LP IV fluids given - Lorazepam PRN - on Keppra 1000 mg b.i.d. - lacosamide 150 mg b.i.d. Acute complicated UTI likely secondary to indwelling willis - U/A consistent with UTI - Pending urine bacterial culture - change the Willis - Awaiting Urine culture Acute on chronic hypoxic respiratory failure Possible aspiration pneumonia, ESBL ecoli, MDR pseudomonas Sepsis likely due to pneumonia s/p tracheostomy S/P bronchoscopy - chest x-ray shows Bilateral perihilar interstitial opacities and ill-defined opacities in the lung bases are nonspecific, may be infectious or inflammatory in nature - duo nebs q.6 hours - acetylcysteine - blood culture negative - Sputum culture on 11/30/24 demonstrated Providencia stuartii, proteus mirabilis , ESBL - As per ID recommendation its colonization, patient does not need any iv antibiotics now - Discontinued IV Zebrax 3gm Q 8 hours H/o endocarditis(in 2013) - blood cultures negative - echo: no severe valve abnormalities noted s/p gastrostomy continue tube feedings Enoxaparin SC PUD prophylaxis: Protonix Plan discussed with Dr. Fontaine Plan discussed with: Other (RN, mother ) Dietary Evaluation Review Comments: 1) If patient remains NPO for more than 7 days, cosider EN/TPN to meet at least 75% estimated energy needs 2) If GI route is preferred, consider Jevity 1.2 @ 60 mL/hr goal rate as tolerated. TF regimen (including Pro-Stat @ 30 mL qd) will provide 1828 kcals, 95g Pro, and 1,162 mL free H2O per 24 hrs. Goal rate will meet ~98% estimated energy needs and 87% estimated protein needs. 3) Advance to regular diet when medically feasible, pending ST approval 4) Continue to monitor I&O, labs, and skin integrity Expected Outcomes/Goals: 1) patient to receive nutrition support within 7 days of NPO status 2) labs and wound to improve 3) diet to advance 4) f/u in 2-3 days Date of Service: Dec 06, 2024 Billing Provider: MIGUEL FONTAINE MD Common Visit Codes: [id number] INP/OBS CARE(HIGH) MATEO RICHARDS RESIDENT Dec 06, 2024 16:04 MIGUEL FONTAINE MD Dec 06, 2024 23:05
[2024-12-07] VITALS (10 sets, daily range): BP systolic 113–132; BP diastolic 59–76; PULSE 66–86; RESP 16–20; TEMP 98.2–99.1; O2SAT 93–100
[2024-12-07 06:48] LABS: Hematocrit 43.6 % (41.0-53.0); Hemoglobin 15.1 g/dL (13.5-17.5); Mean Corpuscular Hemoglobin 29.9 pg (28.0-32.0); Mean Corpuscular Volume 86.7 fL (80.0-100.0); Nucleated Red Blood Cells % 0.0 %
[2024-12-07 06:56] LABS: Chloride 103 mmol/L (98-107); Potassium 3.9 mmol/L (3.5-5.1); Sodium 140 mmol/L (136-145)
[2024-12-07 06:57] LABS: Anion Gap 8 (5-15); Carbon Dioxide 29 mmol/L (20-31)
[2024-12-07 06:58] LABS: Calcium 9.4 mg/dL (8.7-10.4)
[2024-12-07 07:02] LABS: Blood Urea Nitrogen 12 mg/dL (9-23); Glucose 97 mg/dL (74-106)
[2024-12-07 07:25] LABS: BUN/Creatinine Ratio 23.5 (10.0-20.0)
[2024-12-07] MEDS: diphenhdrAMINE HCL 25 MG CAP PO PRN (10:39)
--- NOTE | 2024-12-07 12:54 | DVHPN2 ---
Progress Note - Dictate Date Seen: Dec 07, 2024 Medical Necessity Reason Pt with a Central, PICC or Fol: Yes The following are medically ne: Willis Catheter Reason for willis catheter: Strict I&O vital signs Vital Sign Date Time Temp Pulse Resp B/P (MAP) Pulse Ox O2 Delivery O2 Flow Rate FiO2 12/07/24 08:00 16 Trach Collar 6 28 28 12/07/24 06:52 99 12/07/24 06:50 66 12/07/24 05:00 98.2 121/71 (88) 98.2 Total Intake and Output 12/06/24 12/06/24 12/07/24 15:00 23:00 07:00 Intake Total 0 ml 840 ml 600 ml Output Total 700 ml 550 ml Balance 0 ml 140 ml 50 ml medications Current Medications Medications Dose Ordered Sig/Ata Route Start Time Stop Time Status Last Admin Dose Admin Sodium Chloride 10 ml Q8HR IV 11/29/24 22:00 12/07/24 06:20 10 ML Acetaminophen 650 mg Q6HP PRN PO 11/29/24 17:00 12/04/24 14:54 650 MG Enoxaparin Sodium 40 mg DAILY SC 11/30/24 10:00 12/07/24 10:39 40 MG Albuterol 2.5 mg Q6HPRN PRN NEB 11/29/24 18:45 Cancel Ipratropium [place] 0.5 mg Q6HWA NEB 11/30/24 06:00 12/07/24 06:50 0.5 MG Acetylcysteine 200 mg Q4HP PRN IN 11/29/24 18:45 Ascorbic Acid 500 mg BID GT 11/29/24 22:00 12/07/24 10:39 500 MG Baclofen 20 mg Q6HR GT 11/30/24 00:00 12/07/24 06:20 20 MG Chlorhexidine Gluconate 15 ml Q12HR MT 11/29/24 22:00 12/07/24 10:00 15 ML Diphenhydramine HCl 25 mg Q8HPRN PRN PO 11/29/24 18:45 12/07/24 10:39 25 MG Multivitamins 1 tab DAILY GT 11/30/24 10:00 12/07/24 10:39 1 TAB Pantoprazole Sodium 40 mg DAILY PO 11/30/24 10:00 Hold 11/30/24 09:34 40 MG Polyethylene Glycol 17 gm DAILY PRN PO 11/29/24 18:45 12/03/24 16:32 17 GM Patient Own Medication 1 mg Q8HPRN PRN PO 11/30/24 08:15 Levetiracetam 1,000 mg BID GT 11/29/24 22:00 12/07/24 10:38 1,000 MG Zinc Sulfate 220 mg DAILY GT 11/30/24 10:00 12/07/24 10:39 220 MG Levalbuterol HCl 1.25 mg Q6HWA [facility] 11/30/24 06:00 12/07/24 06:50 1.25 MG Ipratropium [place] 0.5 mg Q4HPRN PRN NEB 11/29/24 22:00 Patient Own Medication 10 mg BID GT 11/30/24 22:00 UNV Enteral Nutritional Formula 1,000 ml 60ML/HR GT 11/30/24 14:00 12/06/24 08:37 1,000 ML Lacosamide 150 mg BID GT 11/30/24 22:00 12/07/24 10:39 150 MG laboratory and microbiology Laboratory Tests 12/07/24 06:05 Test 12/07/24 06:05 Range/Units Serum Glucose 97 74-106 mg/dL Assessment/Plan Impression: Acute on chronic hypoxic respiratory failure Dependence on supplemental oxygen Acute metabolic encephalopathy Sepsis Atelectasis Patient seen and examined Events: Low oxygen requirements Tolerating 6 LPM via trach No new complaints Labs and imaging reviewed Management Supplemental oxygen Continue bronchodilators Mucomyst Continue antibiotics ID recommendations appreciated Incentive spirometry Antiepileptics as ordered DVT prophylaxis Dietary Evaluation Review Comments: 1) If patient remains NPO for more than 7 days, cosider EN/TPN to meet at least 75% estimated energy needs 2) If GI route is preferred, consider Jevity 1.2 @ 60 mL/hr goal rate as tolerated. TF regimen (including Pro-Stat @ 30 mL qd) will provide 1828 kcals, 95g Pro, and 1,162 mL free H2O per 24 hrs. Goal rate will meet ~98% estimated energy needs and 87% estimated protein needs. 3) Advance to regular diet when medically feasible, pending ST approval 4) Continue to monitor I&O, labs, and skin integrity Expected Outcomes/Goals: 1) patient to receive nutrition support within 7 days of NPO status 2) labs and wound to improve 3) diet to advance 4) f/u in 2-3 days Plan discussed with: Patient SCOTT MCLEOD MD Dec 07, 2024 12:54
[2024-12-07] MEDS: ACETYLCYSTEINE PO FOR APAP TOX 200 MG/ML ML IN PRN (13:13)
--- NOTE | 2024-12-07 16:48 | DVHPNRES ---
Progress Note Date Seen: Dec 07, 2024 Resident Creating Document: JUAN GOMEZ RESIDENT Medical Necessity Reason Pt with a Central, PICC or Fol: Yes The following are medically ne: Willis Catheter Reason for willis catheter: Strict I&O Subjective Review of Systems Patient was seen and examined at bedside. Patient is nonverbal at baseline, could not provide review of system. Patient is on 6L oxygen, s/p tracheostomy. Last 12 hr Tmax is 99.3. Blood culture was negative for any growth in 24 hours of incubation and sputum culture demonstrated Providencia stuartii, proteus mirabilis , ESBL. Today CBC showed WBC count 9.1 , stable H/H. Infectious disease recommended according to the recent respiratory culture it is colonization and patient does not need home IV antibiotic on discharge, discontinued IV Zebrax and change the Willis catheter. Pulmonology and Infectious disease are on board. Patient seen at bedside. Patient has not been febrile since 12/04/2024. Per sitter, patient has been well. Vitals have been stable. Today's labs show WBC 9, 15.1, hematocrit 43.6, sodium 140, and potassium 3.9. Preliminary urine culture shows >100,000 CFU of yeast. We will be starting Fluconazole IV today to cover. I called patient's mother, Amelia, and explained vitals, culture results, reason for adding on fluconazole IV, and Allen's general status today. Review of systems: Unable to evaluate due to patient's baseline Objective vital signs Vital Sign Date Time Temp Pulse Resp B/P (MAP) Pulse Ox O2 Delivery O2 Flow Rate FiO2 12/07/24 08:00 16 Trach Collar 6 28 28 12/07/24 06:52 99 12/07/24 06:50 66 12/07/24 05:00 98.2 121/71 (88) 98.2 Total Intake and Output 12/06/24 12/06/24 12/07/24 15:00 23:00 07:00 Intake Total 0 ml 840 ml 600 ml Output Total 700 ml 550 ml Balance 0 ml 140 ml 50 ml medications Current Medications Medications Dose Ordered Sig/Ata Route Start Time Stop Time Status Last Admin Dose Admin Sodium Chloride 10 ml Q8HR IV 11/29/24 22:00 12/07/24 06:20 10 ML Acetaminophen 650 mg Q6HP PRN PO 11/29/24 17:00 12/04/24 14:54 650 MG Enoxaparin Sodium 40 mg DAILY SC 11/30/24 10:00 12/07/24 10:39 40 MG Albuterol 2.5 mg Q6HPRN PRN NEB 11/29/24 18:45 Cancel Ipratropium [place] 0.5 mg Q6HWA [facility] 11/30/24 06:00 12/07/24 06:50 0.5 MG Acetylcysteine 200 mg Q4HP PRN IN 11/29/24 18:45 12/07/24 13:13 200 MG Ascorbic Acid 500 mg BID GT 11/29/24 22:00 12/07/24 10:39 500 MG Baclofen 20 mg Q6HR GT 11/30/24 00:00 12/07/24 12:00 20 MG Chlorhexidine Gluconate 15 ml Q12HR [place] 11/29/24 22:00 12/07/24 10:00 15 ML Diphenhydramine HCl 25 mg Q8HPRN PRN PO 11/29/24 18:45 12/07/24 10:39 25 MG Multivitamins 1 tab DAILY GT 11/30/24 10:00 12/07/24 10:39 1 TAB Pantoprazole Sodium 40 mg DAILY PO 11/30/24 10:00 Hold 11/30/24 09:34 40 MG Polyethylene Glycol 17 gm DAILY PRN PO 11/29/24 18:45 12/03/24 16:32 17 GM Patient Own Medication 1 mg Q8HPRN PRN PO 11/30/24 08:15 Levetiracetam 1,000 mg BID 11/29/24 22:00 12/07/24 10:38 1,000 MG Zinc Sulfate 220 mg DAILY 11/30/24 10:00 12/07/24 10:39 220 MG Levalbuterol HCl 1.25 mg Q6HWA [facility] 11/30/24 06:00 12/07/24 06:50 1.25 MG Ipratropium [place] 0.5 mg Q4HPRN PRN NEB 11/29/24 22:00 Patient Own Medication 10 mg BID GT 11/30/24 22:00 UNV Enteral Nutritional Formula 1,000 ml 60ML/HR GT 11/30/24 14:00 12/06/24 08:37 1,000 ML Lacosamide 150 mg BID GT 11/30/24 22:00 12/07/24 10:39 150 MG Examination Gen - no pallor, no icterus, no cyanosis, no clubbing, no LAD, Skin - Patients skin is warm and dry. generalized rash HEENT - status post cranial surgery with a left hemicranium, moist mucous membranes, trach cannula in place Neck - no LAD, no JVD Pulmonary - B/L course rales heard, no wheezing, no stridor. cardiovascular - regular S1,S2 heard, left lower sternal border systolic murmur heard. peripheral pulses normal radial 2+, pedal 2+. capillary refill normal <2 secs. GI - soft abdomen. no hepatosplenomegaly. Bowel sounds normoactive, PEG tube in place Neurological - patient is nonverbal, quadriplegic laboratory and microbiology Laboratory Tests 12/07/24 06:05 Test 12/07/24 06:05 Range/Units Serum Glucose 97 74-106 mg/dL Microbiology Date/Time Source Procedure Growth Status 12/05/24 19:50 Voided Urine Urine Culture - Preliminary Resulted 11/30/24 10:33 Sputum Gram Stain - Final Complete 11/30/24 10:33 Respiratory Culture - Final Providencia staurtii Proteus mirabilis Escherichia coli - ESBL Complete 11/29/24 23:48 Nose MRSA Screen - Final Complete 11/29/24 09:21 Blood Blood Culture - Final NO GROWTH AFTER 5 DAYS OF INCUBATION. Complete Problem List/Assessment/Plan Problem List/Assessment/Plan Assessment and Plan: Acute metabolic encephalopathy due to Sepsis Seizure disorder S/p traumatic brain injury S/p ventriculoperitoneal shunt Quadriplegic Possible aseptic meningitis, s/p LP IV fluids given - Lorazepam PRN - on Keppra 1000 mg b.i.d. - lacosamide 150 mg b.i.d. Acute complicated UTI likely secondary to indwelling willis - U/A consistent with UTI - Preliminary Urine Culture: >100,000 CFU Yeast -Start Fluconazole 200 mg IV - change the Willis Acute on chronic hypoxic respiratory failure Possible aspiration pneumonia, ESBL ecoli, MDR pseudomonas Sepsis likely due to pneumonia s/p tracheostomy S/P bronchoscopy - chest x-ray shows Bilateral perihilar interstitial opacities and ill-defined opacities in the lung bases are nonspecific, may be infectious or inflammatory in nature - duo nebs q.6 hours - acetylcysteine - blood culture negative - Sputum culture on 11/30/24 demonstrated Providencia stuartii, proteus mirabilis , ESBL - As per ID recommendation its colonization, patient does not need any iv antibiotics now - Discontinued IV Zebrax 3gm Q 8 hours H/o endocarditis(in 2013) - blood cultures negative - echo: no severe valve abnormalities noted s/p gastrostomy continue tube feedings DVT prophylaxis: Enoxaparin [place] PUD prophylaxis: Protonix Case discussed with Dr. Fontaine. Goals of care discussed with patient's mother, Amelia, over the phone for 20 minute. All concerns were addressed and questions answered. FULL CODE. Plan discussed with: Other (Mother, Amelia) Dietary Evaluation Review Comments: 1) If patient remains NPO for more than 7 days, cosider EN/TPN to meet at least 75% estimated energy needs 2) If GI route is preferred, consider Jevity 1.2 @ 60 mL/hr goal rate as tolerated. TF regimen (including Pro-Stat @ 30 mL qd) will provide 1828 kcals, 95g Pro, and 1,162 mL free H2O per 24 hrs. Goal rate will meet ~98% estimated energy needs and 87% estimated protein needs. 3) Advance to regular diet when medically feasible, pending ST approval 4) Continue to monitor I&O, labs, and skin integrity Expected Outcomes/Goals: 1) patient to receive nutrition support within 7 days of NPO status 2) labs and wound to improve 3) diet to advance 4) f/u in 2-3 days Date of Service: Dec 07, 2024 Billing Provider: MIGUEL FONTAINE MD Common Visit Codes: [id number] INP/OBS CARE(HIGH) JUAN GOMEZ RESIDENT Dec 07, 2024 16:48 MIGUEL FONTAINE MD Dec 07, 2024 23:37
[2024-12-07] MEDS ORDERED: FLUCONAZOLE 200MG/100ML 100 ML IV SCH (17:15)
[2024-12-07] MEDS: FLUCONAZOLE 200MG/100ML 100 ML IV SCH (21:45)
[2024-12-08] VITALS (13 sets, daily range): BP systolic 109–120; BP diastolic 51–58; PULSE 61–83; RESP 16–22; TEMP 97.5–98.9; O2SAT 93–100
[2024-12-08 09:20] LABS: Hematocrit 45.9 % (41.0-53.0); Hemoglobin 15.3 g/dL (13.5-17.5); Mean Corpuscular Hemoglobin 28.9 pg (28.0-32.0); Mean Corpuscular Volume 86.7 fL (80.0-100.0); Nucleated Red Blood Cells % 0.2 %
[2024-12-08 09:28] LABS: Chloride 105 mmol/L (98-107); Potassium 4.0 mmol/L (3.5-5.1); Sodium 140 mmol/L (136-145)
[2024-12-08 09:29] LABS: Anion Gap 6 (5-15); Calcium 9.4 mg/dL (8.7-10.4); Carbon Dioxide 29 mmol/L (20-31)
[2024-12-08 09:34] LABS: BUN/Creatinine Ratio 16.1 (10.0-20.0); Blood Urea Nitrogen 9 mg/dL (9-23); Glucose 95 mg/dL (74-106)
--- NOTE | 2024-12-08 18:14 | DVHPNRES ---
Progress Note Date Seen: Dec 08, 2024 Resident Creating Document: FLAKO WOODSON Medical Necessity Reason Pt with a Central, PICC or Fol: Yes The following are medically ne: Willis Catheter Reason for willis catheter: Strict I&O Subjective Review of Systems Patient was seen and examined at bedside. Patient is nonverbal at baseline, could not provide review of system. Patient is on 6L oxygen, s/p tracheostomy. Urine culture preliminary result revealed chest and started IV fluconazole 200 mg daily. patient is afebrile for last 24 hours, WBC count is 8.5, stable H&H. Spoke with the patient's mom Amelia on the bedside regarding patient's current condition and explained recent culture result, blood work result, Infectious Disease recommendations and follow up plan. She understands the plan. We will monitor patient vital closely and awaiting for Pulmonology clearance regarding the discharge of the patient. Objective vital signs Vital Sign Date Time Temp Pulse Resp B/P (MAP) Pulse Ox O2 Delivery O2 Flow Rate FiO2 12/08/24 17:00 98.4 70 19 115/54 (74) 93 98.4 12/08/24 10:30 T-piece 6 N/A Total Intake and Output 12/07/24 12/07/24 12/08/24 15:00 23:00 07:00 Intake Total 100 ml Output Total 1700 ml 650 ml Balance -1600 ml -650 ml medications Current Medications Medications Dose Ordered Sig/Ata Route Start Time Stop Time Status Last Admin Dose Admin Sodium Chloride 10 ml Q8HR IV 11/29/24 22:00 12/08/24 14:22 10 ML Acetaminophen 650 mg Q6HP PRN PO 11/29/24 17:00 12/04/24 14:54 650 MG Enoxaparin Sodium 40 mg DAILY SC 11/30/24 10:00 12/08/24 09:51 40 MG Albuterol 2.5 mg Q6HPRN PRN NEB 11/29/24 18:45 Cancel Ipratropium [place] 0.5 mg Q6HWA NEB 11/30/24 06:00 12/08/24 12:03 0.5 MG Acetylcysteine 200 mg Q4HP PRN IN 11/29/24 18:45 12/07/24 13:13 200 MG Ascorbic Acid 500 mg BID GT 11/29/24 22:00 12/08/24 09:52 500 MG Baclofen 20 mg Q6HR GT 11/30/24 00:00 12/08/24 17:23 20 MG Chlorhexidine Gluconate 15 ml Q12HR [place] 11/29/24 22:00 12/07/24 10:00 15 ML Diphenhydramine HCl 25 mg Q8HPRN PRN PO 11/29/24 18:45 12/07/24 10:39 25 MG Multivitamins 1 tab DAILY GT 11/30/24 10:00 12/08/24 09:52 1 TAB Pantoprazole Sodium 40 mg DAILY PO 11/30/24 10:00 Hold 11/30/24 09:34 40 MG Polyethylene Glycol 17 gm DAILY PRN PO 11/29/24 18:45 12/08/24 14:15 17 GM Patient Own Medication 1 mg Q8HPRN PRN PO 11/30/24 08:15 Levetiracetam 1,000 mg BID GT 11/29/24 22:00 12/08/24 09:51 1,000 MG Zinc Sulfate 220 mg DAILY GT 11/30/24 10:00 12/08/24 09:52 220 MG Levalbuterol HCl 1.25 mg Q6HWA [facility] 11/30/24 06:00 12/08/24 12:03 1.25 MG Ipratropium [place] 0.5 mg Q4HPRN PRN NEB 11/29/24 22:00 Patient Own Medication 10 mg BID GT 11/30/24 22:00 UNV Enteral Nutritional Formula 1,000 ml 60ML/HR GT 11/30/24 14:00 12/06/24 08:37 1,000 ML Lacosamide 150 mg BID GT 11/30/24 22:00 12/08/24 09:52 150 MG Fluconazole 100 ml @ 100 mls/hr DAILY IV 12/07/24 22:00 12/08/24 09:52 100 MLS/HR Examination Examination Gen - no pallor, no icterus, no cyanosis, no clubbing, no LAD Skin - Patients skin is warm and dry. generalized rash HEENT - status post cranial surgery with a left hemicranium, moist mucous membranes, trach cannula in place Neck - no LAD, no JVD Pulmonary - B/L course rales heard, no wheezing, no stridor. cardiovascular - regular S1,S2 heard, left lower sternal border systolic murmur heard. peripheral pulses normal radial 2+, pedal 2+. capillary refill normal <2 secs. GI - soft abdomen. no hepatosplenomegaly. Bowel sounds normoactive, PEG tube in place Neurological - patient is nonverbal, quadriplegic, spontaneous eye opening, responds to mother on verbal command, clonus laboratory and microbiology Laboratory Tests 12/08/24 08:25 Test 12/08/24 08:25 Range/Units Serum Glucose 95 74-106 mg/dL Microbiology Date/Time Source Procedure Growth Status 12/05/24 19:50 Voided Urine Urine Culture - Preliminary Resulted 11/30/24 10:33 Sputum Gram Stain - Final Complete 11/30/24 10:33 Respiratory Culture - Final Providencia staurtii Proteus mirabilis Escherichia coli - ESBL Complete 11/29/24 23:48 Nose MRSA Screen - Final Complete 11/29/24 09:21 Blood Blood Culture - Final NO GROWTH AFTER 5 DAYS OF INCUBATION. Complete Labs and/or images reviewed: Labs reviewed by me, Image(s) reviewed by me Problem List/Assessment/Plan Problem List/Assessment/Plan Assessment and Plan: Acute metabolic encephalopathy due to Sepsis Seizure disorder S/p traumatic brain injury S/p ventriculoperitoneal shunt Quadriplegic Possible aseptic meningitis, s/p LP IV fluids given - Lorazepam PRN - on Keppra 1000 mg b.i.d. - lacosamide 150 mg b.i.d. Acute complicated fungal UTI - U/A consistent with UTI - change the Willis - urine culture preliminary result revealed growth of yeast - IV fluconazole 200 mg daily Acute on chronic hypoxic respiratory failure Possible aspiration pneumonia, ESBL ecoli, MDR pseudomonas Sepsis likely due to pneumonia s/p tracheostomy S/P bronchoscopy - chest x-ray shows Bilateral perihilar interstitial opacities and ill-defined opacities in the lung bases are nonspecific, may be infectious or inflammatory in nature - duo nebs q.6 hours - acetylcysteine - blood culture negative - Sputum culture on 11/30/24 demonstrated providencia staurtii, proteus mirabalis , ESBL - As per ID recommendation its colonization, patient does not need any iv antibiotics now - Discontinued IV Zerbaxa 3gm Q 8 hours H/o endocarditis(in 2013) - blood cultures negative - echo: no severe valve abnormalities noted s/p gastrostomy continue tube feedings Enoxaparin SC PUD prophylaxis: Protonix Plan discussed with Dr. Man Plan discussed with: Other (Mom, RN) Dietary Evaluation Review Comments: 1) If patient remains NPO for more than 7 days, cosider EN/TPN to meet at least 75% estimated energy needs 2) If GI route is preferred, consider Jevity 1.2 @ 60 mL/hr goal rate as tolerated. TF regimen (including Pro-Stat @ 30 mL qd) will provide 1828 kcals, 95g Pro, and 1,162 mL free H2O per 24 hrs. Goal rate will meet ~98% estimated energy needs and 87% estimated protein needs. 3) Advance to regular diet when medically feasible, pending ST approval 4) Continue to monitor I&O, labs, and skin integrity Expected Outcomes/Goals: 1) patient to receive nutrition support within 7 days of NPO status 2) labs and wound to improve 3) diet to advance 4) f/u in 2-3 days Date of Service: Dec 08, 2024 Billing Provider: ELMER MAN MD Common Visit Codes: [id number] INP/OBS CARE(HIGH) FLAKO WOODSON RESIDENT Dec 08, 2024 18:14 ELMER MAN MD Dec 10, 2024 21:34
--- NOTE | 2024-12-08 18:56 | DVHPN2 ---
Progress Note - Dictate Date Seen: Dec 08, 2024 Medical Necessity Reason Pt with a Central, PICC or Fol: Yes The following are medically ne: Willis Catheter Reason for willis catheter: Strict I&O vital signs Vital Sign Date Time Temp Pulse Resp B/P (MAP) Pulse Ox O2 Delivery O2 Flow Rate FiO2 12/08/24 17:00 98.4 70 19 115/54 (74) 93 98.4 12/08/24 10:30 T-piece 6 N/A Total Intake and Output 12/07/24 12/07/24 12/08/24 15:00 23:00 07:00 Intake Total 100 ml Output Total 1700 ml 650 ml Balance -1600 ml -650 ml medications Current Medications Medications Dose Ordered Sig/Ata Route Start Time Stop Time Status Last Admin Dose Admin Sodium Chloride 10 ml Q8HR IV 11/29/24 22:00 12/08/24 14:22 10 ML Acetaminophen 650 mg Q6HP PRN PO 11/29/24 17:00 12/04/24 14:54 650 MG Enoxaparin Sodium 40 mg DAILY SC 11/30/24 10:00 12/08/24 09:51 40 MG Albuterol 2.5 mg Q6HPRN PRN NEB 11/29/24 18:45 Cancel Ipratropium [place] 0.5 mg Q6HWA NEB 11/30/24 06:00 12/08/24 12:03 0.5 MG Acetylcysteine 200 mg Q4HP PRN IN 11/29/24 18:45 12/07/24 13:13 200 MG Ascorbic Acid 500 mg BID GT 11/29/24 22:00 12/08/24 09:52 500 MG Baclofen 20 mg Q6HR GT 11/30/24 00:00 12/08/24 17:23 20 MG Chlorhexidine Gluconate 15 ml Q12HR MT 11/29/24 22:00 12/07/24 10:00 15 ML Diphenhydramine HCl 25 mg Q8HPRN PRN PO 11/29/24 18:45 12/07/24 10:39 25 MG Multivitamins 1 tab DAILY GT 11/30/24 10:00 12/08/24 09:52 1 TAB Pantoprazole Sodium 40 mg DAILY PO 11/30/24 10:00 Hold 11/30/24 09:34 40 MG Polyethylene Glycol 17 gm DAILY PRN PO 11/29/24 18:45 12/08/24 14:15 17 GM Patient Own Medication 1 mg Q8HPRN PRN PO 11/30/24 08:15 Levetiracetam 1,000 mg BID GT 11/29/24 22:00 12/08/24 09:51 1,000 MG Zinc Sulfate 220 mg DAILY GT 11/30/24 10:00 12/08/24 09:52 220 MG Levalbuterol HCl 1.25 mg Q6HWA NEB 11/30/24 06:00 12/08/24 12:03 1.25 MG Ipratropium [place] 0.5 mg Q4HPRN PRN NEB 11/29/24 22:00 Patient Own Medication 10 mg BID GT 11/30/24 22:00 UNV Enteral Nutritional Formula 1,000 ml 60ML/HR GT 11/30/24 14:00 12/06/24 08:37 1,000 ML Lacosamide 150 mg BID GT 11/30/24 22:00 12/08/24 09:52 150 MG Fluconazole 100 ml @ 100 mls/hr DAILY IV 12/07/24 22:00 12/08/24 09:52 100 MLS/HR laboratory and microbiology Laboratory Tests 12/08/24 08:25 Test 12/08/24 08:25 Range/Units Serum Glucose 95 74-106 mg/dL Assessment/Plan Impression: Acute on chronic hypoxic respiratory failure Dependence on supplemental oxygen Acute metabolic encephalopathy Sepsis Atelectasis Patient seen and examined Events: Low oxygen requirements Tolerating 6 LPM via trach No distress Labs and imaging reviewed Management Supplemental oxygen Continue bronchodilators Mucomyst Continue antibiotics ID recommendations appreciated Incentive spirometry Antiepileptics as ordered DVT prophylaxis Dietary Evaluation Review Comments: 1) If patient remains NPO for more than 7 days, cosider EN/TPN to meet at least 75% estimated energy needs 2) If GI route is preferred, consider Jevity 1.2 @ 60 mL/hr goal rate as tolerated. TF regimen (including Pro-Stat @ 30 mL qd) will provide 1828 kcals, 95g Pro, and 1,162 mL free H2O per 24 hrs. Goal rate will meet ~98% estimated energy needs and 87% estimated protein needs. 3) Advance to regular diet when medically feasible, pending ST approval 4) Continue to monitor I&O, labs, and skin integrity Expected Outcomes/Goals: 1) patient to receive nutrition support within 7 days of NPO status 2) labs and wound to improve 3) diet to advance 4) f/u in 2-3 days Plan discussed with: Patient SCOTT MCLEOD MD Dec 08, 2024 18:56
[2024-12-09] VITALS (13 sets, daily range): BP systolic 104–132; BP diastolic 55–76; PULSE 63–79; RESP 16–20; TEMP 98.1–99.5; O2SAT 93–98
[2024-12-09] MEDS: IPRATROPIUM BROM 0.5 MG/2.5ML INH SOL NEB PRN (02:35)
[2024-12-09 07:25] LABS: Hematocrit 44.2 % (41.0-53.0); Hemoglobin 15.0 g/dL (13.5-17.5); Mean Corpuscular Hemoglobin 29.4 pg (28.0-32.0); Mean Corpuscular Volume 86.3 fL (80.0-100.0); Nucleated Red Blood Cells % 0.1 %
[2024-12-09 07:37] LABS: Anion Gap 10 (5-15); Carbon Dioxide 28 mmol/L (20-31); Chloride 104 mmol/L (98-107); Potassium 4.1 mmol/L (3.5-5.1); Sodium 142 mmol/L (136-145)
[2024-12-09 07:38] LABS: Calcium 9.6 mg/dL (8.7-10.4)
[2024-12-09 07:43] LABS: BUN/Creatinine Ratio 15.8 (10.0-20.0); Blood Urea Nitrogen 9 mg/dL (9-23); Glucose 92 mg/dL (74-106)
[2024-12-09] MEDS: FLUCONAZOLE 100 MG TAB PO ONE (10:45)
[2024-12-09] MEDS ORDERED: FLUC200T50 PO (13:54)
--- NOTE | 2024-12-09 14:41 | DVHDSRES ---
Discharge Summary Date of Admission Resident Creating Document: FLAKO WOODSON RESIDENT Nov 29, 2024 at 16:59 Date of Discharge: Dec 09, 2024 Admitting Diagnosis Acute metabolic encephalopathy due to Sepsis Labs/Diagnostic Data: Laboratory Results Test 12/09/24 06:05 12/04/24 22:50 12/04/24 05:23 12/01/24 14:00 White Blood Count 6.7 10^3/uL (4.4-10.8) Red Blood Count 5.12 10^6/uL (4.5-5.90) Hemoglobin 15.0 g/dL (13.5-17.5) Hematocrit 44.2 % (41.0-53.0) Mean Corpuscular Volume 86.3 fL (80.0-100.0) Mean Corpuscular Hemoglobin 29.4 pg (28.0-32.0) Mean Corpuscular Hemoglobin Concent 34.0 g/dL (32.0-36.0) Red Cell Distribution Width 14.9 % (11.8-14.3) Platelet Count 203 10^3/uL (140-450) Mean Platelet Volume 8.7 fL (6.9-10.8) Neutrophils (%) (Auto) 46.0 % (37.0-80.0) Lymphocytes (%) (Auto) 31.1 % (10.0-50.0) Monocytes (%) (Auto) 13.2 % (0.0-12.0) Eosinophils (%) (Auto) 9.2 % (0.0-7.0) Basophils (%) (Auto) 0.5 % (0.0-2.0) Neutrophils # (Auto) 3.1 10 ^3/uL (1.6-8.6) Lymphocytes # (Auto) 2.1 10 ^3/uL (0.4-5.4) Monocytes # (Auto) 0.9 10 ^3/uL (0-1.3) Eosinophils # (Auto) 0.6 10 ^3/uL (0-0.8) Basophils # (Auto) 0 10 ^3/uL (0-0.2) Nucleated Red Blood Cells 0.1 % Sodium Level 142 mmol/L (136-145) Potassium Level 4.1 mmol/L (3.5-5.1) Chloride Level 104 mmol/L (98-107) Carbon Dioxide Level 28 mmol/L (20-31) Anion Gap 10 (5-15) Blood Urea Nitrogen 9 mg/dL (9-23) Creatinine 0.57 mg/dL (0.700-1.30) Glomerular Filtration Rate Calc 120 mL/min (>90) BUN/Creatinine Ratio 15.8 (10.0-20.0) Serum Glucose 92 mg/dL (74-106) Calcium Level 9.6 mg/dL (8.7-10.4) Urine Color Light-brown (Yellow) Urine Clarity Turbid (Clear) Urine pH 5.5 (5.0-9.0) Urine Specific [place] 1.019 (1.001-1.035) Urine Protein Trace (Negative) Urine Ketones Trace (Negative) Urine Blood 3+ /uL (Negative) Urine Nitrite Negative (Negative) Urine Bilirubin Negative (Negative) Urine Urobilinogen Normal mg/dL (Negative) Urine Leukocyte Esterase 3+ /uL (Negative) Urine RBC 1845 /hpf (0 - 3) Urine Microscopic WBC 173 /HPF (0-3) Urine Squamous Epithelial Cells Few /hpf (<5) Urine Bacteria Few /hpf (None Seen) Urine Yeast (Budding) Few /hpf (None Seen) Urine Glucose Normal mg/dL (Normal) Total Bilirubin 0.5 mg/dL (0.2-1.0) Aspartate Amino Transferase (AST) 47 U/L (13-40) Alanine Aminotransferase (ALT) 85 U/L (7-40) Alkaline Phosphatase 102 U/L (46-116) Total Protein 5.7 g/dL (5.7-8.2) Albumin 3.4 g/dL (3.2-4.8) Gentamicin Level Trough 2.0 ug/mL (0.5-1.5) Test 11/29/24 20:00 11/29/24 09:44 11/29/24 09:21 Lactic Acid Level 1.1 mmol/L (0.4-2.0) POC Glucose 111 mg/dl (70-106) Prothrombin Time 10.8 sec (9.3-11.8) Prothrombin Time INR 1.02 (0.9-1.15) Activated Partial Thromboplast Time 28.8 SEC (24.5-34.5) Other Laboratory Tests 12/09/24 06:05 Brief Hx & Hospital Course: Patient is a 49-year-old male, bed-bound with a past medical history of traumatic brain injury, endocarditis, seizure disorder, s/p tracheostomy was brought to the hospital via EMS after he had one episode of fever 101.4. Recent admission for MDRO asp pna and sepsis, discharged on home IV abx zerbexa and gentamycin, brought back to ED 2/2 fever. In the ED patient was septic with elevated WBC count, lactic acidosis, started on IV Invanz and Vanc. On day 2 of the hospital admission restarted IV Zerbaxa and 3 g q.8 hour, IV gentamicin 80 mg q.8 hours. Pulmonology and infectious disease were reconsulted. Respiratory culture on 11/30/2024 showed early providencia stuartii,Proteus mirabilis, ESBL- E.coli and Infectious Disease recommended it is colonization not need to continue IV antibiotic and recommended to discontinue IV Zerbaxa. U/A was consistent with UTI and urine culture showed yeast and treated with IV fluconazole 200 mg daily. Patient is afebrile for last 48 hour ,titrated down the oxygen to room air and patient is now saturating 95-97% with room air. Discharge plan was discussed with the mom and all questions were answered. Patient is being discharged to home with fluconazole 200 mg through GT tube and advised to continue all home medications. Mom was also advised to follow-up with DC clinic in 1-2 weeks and pulmonology outpatient in 2 weeks. Examination Gen - no pallor, no icterus, no cyanosis, no clubbing, no LAD Skin - Patients skin is warm and dry. generalized rash HEENT - status post cranial surgery with a left hemicranium, moist mucous membranes, trach cannula in place Neck - no LAD, no JVD Pulmonary - B/L course rales heard, no wheezing, no stridor. cardiovascular - regular S1,S2 heard, left lower sternal border systolic murmur heard. peripheral pulses normal radial 2+, pedal 2+. capillary refill normal <2 secs. GI - soft abdomen. no hepatosplenomegaly. Bowel sounds normoactive, PEG tube in place Neurological - patient is nonverbal, quadriplegic, spontaneous eye opening, responds to mother on verbal command, clonus Consults/Reason for consult Pulmonology and ID were consulted. Operations or Procedures CLINICAL INFORMATION: Shortness of breath. TECHNIQUE: Single AP portable chest radiograph was obtained. COMPARISON: XY CHEST XRAY 1 VIEW on DOS: 11/22/24, XY CHEST XRAY 1 VIEW on DOS: 11/21/24, XY CHEST XRAY 1 VIEW on DOS: 11/20/24 FINDINGS: Lungs: Low lung volumes. Bilateral perihilar interstitial opacities, increased compared to the prior exam. Ill-defined airspace opacities in the lung bases, may be infectious or inflammatory in nature. Cardiac: Heart size is within normal limits. Pulmonary vasculature: Unremarkable. Mediastinum/raymond: Unremarkable. Bones: No acute osseous abnormality identified. Other: [employer] shunt catheter visualized extending from the right side of the neck along the right chest wall, into the abdomen, and below the [id number] of the exam. IMPRESSION: Bilateral perihilar interstitial opacities and ill-defined opacities in the lung bases are nonspecific, may be infectious or inflammatory in nature. The findings appear increased compared to the prior exam. Correlate with clinical findings. Condition at Discharge: Guarded Final Diagnosis/Problems List Acute metabolic encephalopathy due to Sepsis Acute on chronic hypoxic respiratory failure Possible aspiration pneumonia, ESBL ecoli, MDR pseudomonas Sepsis likely due to pneumonia s/p tracheostomy S/P bronchoscopy Seizure disorder S/p traumatic brain injury S/p ventriculoperitoneal shunt Quadriplegic Acute complicated fungal UTI H/o endocarditis(in 2013) s/p gastrostomy Discharge Disposition: Home Discharge Instruct/Medications Diet: Regular Diet comment: Patient is feeding through GT tube. Activity: No Restrictions, As Tolerated Follow Up/Referral: Follow up with DC clinic in 1 to 2 weeks. Follow up with outpatient Pulmonology in 2 weeks. Medications: As per EMR Scheduled Amino Acids-Protein Hydrolysat (Pro-Stat), 30 ML OR DAILY, (Reported) Ascorbic Acid (Vitamin C Tablet), 1 TAB GT BID, (Reported) Baclofen (Baclofen), 20 MG GT Q6HR, (Reported) Chlorhexidine Gluconate (Mouth (Chlorhexidine Oral Rinse), 15 ML MT Q12HR, (Reported) Fluconazole (Fluconazole), 1 TAB PO DAILY Fluconazole (Fluconazole), 1 TAB PO DAILY Lacosamide (Lacosamide), 150 MG GT BID, (Reported) Levetiracetam (Keppra), 10 LIQ PO BID, (Reported) Loratadine (Claritin), 1 TAB PO DAILY, (Reported) Multiple Vitamin (Multivitamins), 1 TAB GT DAILY, (Reported) Polyethylene Glycol 3350 (Miralax), 17 GM PO 3XW, (Reported) Potassium Chloride (Potassium Chloride Cr), 20 MEQ GT DAILY, (Reported) Zinc Sulfate (Zinc Sulfate), 50 MG GT DAILY, (Reported) Scheduled PRN Acetylcysteine (Acetylcysteine), 1 ML IN Q4HP PRN for thick secretions, (Reported) Diphenhydramine Hcl (Benadryl Allergy), 25 MG PO Q8HPRN PRN for allergies, (Reported) Glycopyrrolate ([place]uv[place]a), 1 MG PO Q8HPRN PRN for increased secretions, (Reported) Ipratropium-Albuterol (Ipratropium [place]/Albut), 1 TRACE IN Q6HPRN PRN for respiratory failure, (Reported) Levalbuterol HCl (Levalbuterol), 1.25 MG IN Q4HP PRN for WHEEZING, (Reported) Lorazepam (Ativan Tablet), 0.5 MG GT Q6HPRN PRN for SHORTNESS OF BREATH, (Reported) Discontinued Medications Pantoprazole Sodium Sesquihydr (Pantoprazole Sodium), 40 MG PO DAILY Prednisone (Prednisone), 20 MG PO DAILY Discharge Statement: "Patient was advised to return to the ER or call 911 if any headaches, dizziness, shortness of breath, chest pain, abdominal pain, bleeding, fevers, or worsening of medical condition. Patient was counseled about treatment plan, medications, possible side effects, patientverbalized understanding. All questions were answered to the best of my ability. This discharge took greater then 30 minutes in planning, reviewing documentation, counseling the patient, and discussing with other team members." ASSESSMENT ASSESSMENT Assessment Acute metabolic encephalopathy due to Sepsis Date of Service: Dec 09, 2024 Billing Provider: ELMER STEVENSON MD Common Visit Codes: 30480-DAW/OBS DISCH DAY >30min FLAKO WOODSON RESIDENT Dec 09, 2024 14:41 ELMER STEVENSON MD Dec 10, 2024 21:50
--- NOTE | 2024-12-09 18:20 | DVHPN2 ---
Progress Note - Dictate Date Seen: Dec 09, 2024 Medical Necessity Reason Pt with a Central, PICC or Fol: Yes The following are medically ne: Willis Catheter Reason for willis catheter: Strict I&O vital signs Vital Sign Date Time Temp Pulse Resp B/P (MAP) Pulse Ox O2 Delivery O2 Flow Rate FiO2 12/09/24 14:45 98.1 78 20 95 12/09/24 13:17 T-piece 6.0 12/09/24 13:17 28 28 12/09/24 13:00 121/55 (77) Total Intake and Output 12/08/24 12/08/24 12/09/24 15:00 23:00 07:00 Intake Total 100 ml Output Total 750 ml 850 ml Balance 100 ml -750 ml -850 ml medications Current Medications Medications Dose Ordered Sig/Ata Route Start Time Stop Time Status Last Admin Dose Admin Sodium Chloride 10 ml Q8HR IV 11/29/24 22:00 12/09/24 13:45 10 ML Acetaminophen 650 mg Q6HP PRN PO 11/29/24 17:00 12/04/24 14:54 650 MG Enoxaparin Sodium 40 mg DAILY SC 11/30/24 10:00 12/09/24 09:11 40 MG Albuterol 2.5 mg Q6HPRN PRN NEB 11/29/24 18:45 Cancel Ipratropium [place] 0.5 mg Q6HWA NEB 11/30/24 06:00 12/09/24 13:19 0.5 MG Acetylcysteine 200 mg Q4HP PRN IN 11/29/24 18:45 12/07/24 13:13 200 MG Ascorbic Acid 500 mg BID GT 11/29/24 22:00 12/09/24 08:54 500 MG Baclofen 20 mg Q6HR GT 11/30/24 00:00 12/09/24 11:51 20 MG Chlorhexidine Gluconate 15 ml Q12HR MT 11/29/24 22:00 12/07/24 10:00 15 ML Diphenhydramine HCl 25 mg Q8HPRN PRN PO 11/29/24 18:45 12/07/24 10:39 25 MG Multivitamins 1 tab DAILY GT 11/30/24 10:00 12/09/24 08:54 1 TAB Pantoprazole Sodium 40 mg DAILY PO 11/30/24 10:00 Hold 11/30/24 09:34 40 MG Polyethylene Glycol 17 gm DAILY PRN PO 11/29/24 18:45 12/08/24 14:15 17 GM Patient Own Medication 1 mg Q8HPRN PRN PO 11/30/24 08:15 Levetiracetam 1,000 mg BID GT 11/29/24 22:00 12/09/24 08:53 1,000 MG Zinc Sulfate 220 mg DAILY GT 11/30/24 10:00 12/09/24 08:53 220 MG Levalbuterol HCl 1.25 mg Q6HWA NEB 11/30/24 06:00 12/09/24 13:18 1.25 MG Ipratropium [place] 0.5 mg Q4HPRN PRN NEB 11/29/24 22:00 12/09/24 02:35 0.5 MG Patient Own Medication 10 mg BID GT 11/30/24 22:00 UNV Enteral Nutritional Formula 1,000 ml 60ML/HR GT 11/30/24 14:00 12/06/24 08:37 1,000 ML Lacosamide 150 mg BID GT 11/30/24 22:00 12/09/24 08:54 150 MG Fluconazole 200 mg DAILY PO 12/10/24 10:00 laboratory and microbiology Laboratory Tests 12/09/24 06:05 Test 12/09/24 06:05 Range/Units Serum Glucose 92 74-106 mg/dL Assessment/Plan Impression: Acute on chronic hypoxic respiratory failure Dependence on supplemental oxygen Acute metabolic encephalopathy Sepsis Atelectasis Patient seen and examined Events: Low oxygen requirements Tolerating 6 LPM via trach No new complaints Labs and imaging reviewed Management Supplemental oxygen Continue bronchodilators Mucomyst Continue antibiotics ID recommendations appreciated Incentive spirometry Antiepileptics as ordered DVT prophylaxis Dietary Evaluation Review Comments: 1) If patient remains NPO for more than 7 days, cosider EN/TPN to meet at least 75% estimated energy needs 2) If GI route is preferred, consider Jevity 1.2 @ 60 mL/hr goal rate as tolerated. TF regimen (including Pro-Stat @ 30 mL qd) will provide 1828 kcals, 95g Pro, and 1,162 mL free H2O per 24 hrs. Goal rate will meet ~98% estimated energy needs and 87% estimated protein needs. 3) Advance to regular diet when medically feasible, pending ST approval 4) Continue to monitor I&O, labs, and skin integrity Expected Outcomes/Goals: 1) patient to receive nutrition support within 7 days of NPO status 2) labs and wound to improve 3) diet to advance 4) f/u in 2-3 days Plan discussed with: Patient SCOTT MCLEOD MD Dec 09, 2024 18:20
[2024-12-10] MEDS ORDERED: FLUCONAZOLE 100 MG TAB PO SCH (10:00)
== END 2024-12-09 19:10 | disposition home or self-care (01) | DRG 871 ==
LOC: ER 08:38 → EDBD 08:38 → OVERFLOW 16:59 → TELE-WESTW 17:01 → DOU IN ICU 11-30 00:07 → TELE-WESTW 11-30 16:50
PROVIDERS: ADMIT Student in an Organized Health Care Education/Training Program; ATTEND Student in an Organized Health Care Education/Training Program
DX: A41.9 Sepsis, unspecified organism (principal); G82.50 Quadriplegia, unspecified; G93.41 Metabolic encephalopathy; J69.0 Pneumonitis due to inhalation of food and vomit; J18.9 Pneumonia, unspecified organism; J96.21 Acute and chronic respiratory failure with hypoxia; N39.0 Urinary tract infection, site not specified; G40.909 Epilepsy, unspecified, not intractable, without status epilepticus; Z79.899 Other long term (current) drug therapy; Z93.0 Tracheostomy status; Z99.81 Dependence on supplemental oxygen; Z93.1 Gastrostomy status; Z87.820 Personal history of traumatic brain injury; Z74.01 Bed confinement status
CPT/HCPCS: 36415; 71045; 80048; 80053; 80170; 81001; 82962; 83605; 85025; 85610; 85730; 87040; 87070; 87077; 87081; 87086; 87088; 87186; 87205; 93005; 94640; 96365; 96375; 99291; 99292; G0378; J0131; J1335; J1450; J2470; J7060

== ENCOUNTER 2024-12-11 01:51 | Inpatient (IN) | payer MEDICARE, MEDICAID ==
[2024-12-11] VITALS (11 sets, daily range): BP systolic 114–128; BP diastolic 78–86; PULSE 101–149; RESP 20–36; TEMP 98.3–102; O2SAT 92–99
[~2024-12-11] VITALS: Ht 177.8 cm; Wt 90.0 kg
[~2024-12-11 01:51] MED LIST changes: +FLUC200T50 PO; -PANT40T PO; -PRED20TA2 PO
[2024-12-11] MEDS ORDERED: VANCOMYCIN 1GM/200ML PM 200 ML IV ONE (02:15)
[2024-12-11] MEDS ORDERED: cefTRIAXone 1GM/50ML D5W 50 ML IV ONE (02:15)
[2024-12-11] MEDS: ACETAMINOPHEN 650 MG RECT SUPP PR ONE (02:15)
--- NOTE | 2024-12-11 02:20 | ED.PDOC ---
SOB-HPI HPI Comments 49 year old male presents to the ED via EMS with a chief complaint of hypoxia onset today. Per EMS, 911 was called by patient's daughter due to patient being hypoxic. Upon EMS arrival, patient's O2 sat was 90% on RA, was placed on 10L O2, sat was 93%, temperature 104 F, tachycardic with HR of 150, RR 40. He was admitted at [facility] on 11/29/24 with the diagnosis of Metabolic encephalopathy and sepsis and was discharged 12/09/24. Prior to the visit, patient was discharged on 11/28/24, was diagnosed with Multiple drug resistant pneumonia. Patient is bed bound, non-verbal. PMHx TBI, tracheostomy, seizure disorder. No other symptoms or modifying factors present at this time. Time Seen by MD: 02:05 Reviewed notes: Medications, Allergies Information Source: Relative, Emergency Med Personnel Mode of Arrival: Ambulatory Severity: Moderate Timing: Hours Duration: Since onset Context: At Rest PE Risk Factors: None History of: Recent URI Prehospital treatment: Oxygen (10 L) Modifying Factors: Nothing Vital Signs Vital Signs Date Time Temp Pulse Resp B/P (MAP) Pulse Ox O2 Delivery O2 Flow Rate FiO2 12/11/24 08:15 99.8 115 23 132/73 (92) 97 99.8 12/11/24 07:57 T-piece 8.0 12/11/24 07:57 N/A Physical Exam PHYSICAL EXAM: General: Awake, alert and oriented. No acute distress. Diaphoretic Skin: Skin in warm, dry and intact without rashes or lesions. HEENT: Left cranial deformity. Conjunctivae are clear without exudates or hemorrhage. Sclera is non-icteric. Cardiac: Irregular rhythm, rapid rate Respiratory: No signs of respiratory distress. No Stridor. Abdomen: Abdomen is soft, nondistended Extremities: Upper and lower extremity contractures Neurological: The patient is awake, alert. Upper and lower extremity paralysis Review of Systems: REVIEW OF SYSTEMS: unable to obtain due to patient being nonverbal Past Medical History PAST MEDICAL HISTORY: Seizures Past Medical History (Other): TBI Surgical History: Denies all surgeries Family History Family History: Reviewed,noncontributory to illness Social History Smoker: Non-Smoker Alcohol: Denies ETOH Use Drugs: Denies Drug Use Lives In: Home EKG EKG : Pulse Rate (adult): 147 Cardiac Rhythm: Afib Was a procedure done? Was a procedure done?: No Differential Dx Differential Diagnosis: Other Comments Viral illness, pharyngitis, otitis media, bacteremia, pneumonia, UTI, meningitis, sepsis, other X-Ray, Labs, Meds, VS Vital Signs Date Time Temp Pulse Resp B/P (MAP) Pulse Ox O2 Delivery O2 Flow Rate FiO2 12/11/24 08:15 99.8 115 23 132/73 (92) 97 99.8 12/11/24 08:07 110 20 98 12/11/24 08:00 115 12/11/24 07:57 117 22 98 12/11/24 07:57 98 T-piece 8.0 12/11/24 07:57 98 T-piece 8 N/A Cool Aerosol 12/11/24 07:30 99.4 12/11/24 06:00 99.3 122 36 143/74 (97) 95 99.3 12/11/24 04:01 102.0 147 36 128/86 94 8.0 30 102.0 12/11/24 04:00 133 12/11/24 04:00 100.0 134 32 118/66 (83) 94 100.0 12/11/24 02:33 36 95 Trach Collar 8 30 30 12/11/24 02:20 147 12/11/24 02:19 149 34 92 Trach Collar 8 N/A 12/11/24 02:19 102.0 149 34 114/53 (73) 92 102.0 12/11/24 02:15 102.0 12/11/24 01:56 147 12/11/24 01:51 100.3 143 28 128/86 (100) 100 100.3 Lab Test 12/11/24 06:00 12/11/24 04:40 12/11/24 02:36 12/11/24 02:25 Range/Units Urine Color Yellow Yellow Urine Clarity Clear Clear Urine pH 5.0 5.0-9.0 Urine Specific Ama 1.028 1.001-1.035 Urine Protein Trace H Negative Urine Ketones Negative Negative Urine Blood 3+ H Negative /uL Urine Nitrite Negative Negative Urine Bilirubin Negative Negative Urine Urobilinogen Normal Negative mg/dL Urine Leukocyte Esterase Negative Negative /uL Urine RBC 48 0 - 3 /hpf Urine Microscopic WBC < 1 0-3 /HPF Urine Squamous Epithelial Cells None seen <5 /hpf Urine Bacteria None seen None Seen /hpf Urine Granular Casts Few 0 /lpf Urine Mucus Few None Seen Urine Yeast (Budding) Occasional None Seen /hpf Urine Glucose Normal Normal mg/dL Lactic Acid Level 1.6 3.9 *H 0.4-2.0 mmol/L White Blood Count 23.7 #H 4.4-10.8 10^3/uL Red Blood Count 5.69 4.5-5.90 10^6/uL Hemoglobin 16.4 13.5-17.5 g/dL Hematocrit 50.0 # 41.0-53.0 % Mean Corpuscular Volume 87.9 80.0-100.0 fL Mean Corpuscular Hemoglobin 28.9 28.0-32.0 pg Mean Corpuscular Hemoglobin Concent 32.9 32.0-36.0 g/dL Red Cell Distribution Width 15.4 H 11.8-14.3 % Platelet Count 266 140-450 10^3/uL Mean Platelet Volume 8.1 6.9-10.8 fL Neutrophils (%) (Auto) 87.7 H 37.0-80.0 % Lymphocytes (%) (Auto) 5.5 L 10.0-50.0 % Monocytes (%) (Auto) 5.5 0.0-12.0 % Eosinophils (%) (Auto) 0.5 0.0-7.0 % Basophils (%) (Auto) 0.8 0.0-2.0 % Neutrophils # (Auto) 20.8 H 1.6-8.6 10 ^3/uL Lymphocytes # (Auto) 1.3 0.4-5.4 10 ^3/uL Monocytes # (Auto) 1.3 0-1.3 10 ^3/uL Eosinophils # (Auto) 0.1 0-0.8 10 ^3/uL Basophils # (Auto) 0.2 0-0.2 10 ^3/uL Nucleated Red Blood Cells 0.1 % Sodium Level 139 136-145 mmol/L Potassium Level 4.1 3.5-5.1 mmol/L Chloride Level 102 98-107 mmol/L Carbon Dioxide Level 26 20-31 mmol/L Anion Gap 11 5-15 Blood Urea Nitrogen 13 9-23 mg/dL Creatinine 0.74 0.700-1.30 mg/dL Glomerular Filtration Rate Calc 111 >90 mL/min BUN/Creatinine Ratio 17.6 10.0-20.0 Serum Glucose 92 74-106 mg/dL Calcium Level 9.9 8.7-10.4 mg/dL Total Bilirubin 1.0 0.2-1.0 mg/dL Aspartate Amino Transferase (AST) 43 H 13-40 U/L Alanine Aminotransferase (ALT) 74 H 7-40 U/L Alkaline Phosphatase 129 H 46-116 U/L Total Protein 7.2 5.7-8.2 g/dL Albumin 4.1 3.2-4.8 g/dL Blood Gas Specimen Type Arterial Blood Gas Sample Site Right radial Blood Gas Patient Temperature 37.0 Arterial Blood Date Drawn [id number] Arterial Blood pH 7.483 H 7.350-7.450 Arterial Blood Partial Pressure CO2 31.5 L 35.0-48.0 mmHg Arterial Blood Partial Pressure O2 64.8 L 83.0-108.0 mmHg Arterial Blood HCO3 23.1 21.0-28.0 mmol/L Arterial Blood Oxygen Saturation 93.9 L 94.0-98.0 % Arterial Blood Base Excess 0.7 -2.0-3.0 mmol/L Arterial Blood Oxyhemoglobin 91.9 L 94.0-98.0 % Arterial Blood Carboxyhemoglobin 1.3 0.5-1.5 % Arterial Blood Methemoglobin 0.8 0.0-1.5 % José Miguel Test Modified Blood Gas Total Hemoglobin 17.10 13.5-17.5 g/dL Blood Gas Liter Flow 8.00 Blood Gas Modality Cool aerosol FiO2 % 30.0 Microbiology Date/Time Source Procedure Growth Status 12/11/24 06:00 Voided Urine Urine Culture - Final Complete 12/11/24 02:57 Blood Blood Culture - Final NO GROWTH AFTER 5 DAYS OF INCUBATION. Complete 12/11/24 02:36 Blood Blood Culture - Final NO GROWTH AFTER 5 DAYS OF INCUBATION. Complete Time of 1ST Reevaluation: 02:35 Reevaluation 1ST: Unchanged Patient Education/Counseling: Need For Follow Up Family Education/Counseling: No Family Present SEPSIS Sepsis Screen Physician Orders Electrocardigram (12/11/24 01:59) Saline Lock (12/11/24 02:07) Forensic Toxicologist (12/11/24 ) Rectal/Core Temps Only (12/11/24 02:07) Notify Md If Abnormal Vs (12/11/24 02:07) Chest Xray 1 View (12/11/24 02:07) Abg W/ Co-Ox (12/11/24 02:07) Electrocardigram (12/11/24 03:27) Straight Cath. (12/11/24 ) Vital Signs Date Time Temp Pulse Resp B/P (MAP) Pulse Ox O2 Delivery O2 Flow Rate FiO2 12/11/24 08:15 99.8 115 23 132/73 (92) 97 99.8 12/11/24 08:07 110 20 98 12/11/24 08:00 115 12/11/24 07:57 117 22 98 12/11/24 07:57 98 T-piece 8.0 12/11/24 07:57 98 T-piece 8 N/A Cool Aerosol 12/11/24 07:30 99.4 12/11/24 06:00 99.3 122 36 143/74 (97) 95 99.3 12/11/24 04:01 102.0 147 36 128/86 94 8.0 30 102.0 12/11/24 04:00 133 12/11/24 04:00 100.0 134 32 118/66 (83) 94 100.0 12/11/24 02:33 36 95 Trach Collar 8 30 30 12/11/24 02:20 147 12/11/24 02:19 149 34 92 Trach Collar 8 N/A 12/11/24 02:19 102.0 149 34 114/53 (73) 92 102.0 12/11/24 02:15 102.0 12/11/24 01:56 147 12/11/24 01:51 100.3 143 28 128/86 (100) 100 100.3 Laboratory Tests Test 12/11/24 02:36 12/11/24 04:40 Lactic Acid Level 3.9 mmol/L (0.4-2.0) *H 1.6 mmol/L (0.4-2.0) White Blood Count 23.7 10^3/uL (4.4-10.8) #H Departure 1 Departure Time of Disposition: 04:22 Impression: Primary Impression: Acute hypoxic respiratory failure Additional Impression: Sepsis Disposition: 09 ADMITTED INPATIENT Condition: Critical Critical Care Note Critical Care Time?: No Stability Stability form required: No Heart Score Heart Score: Heart Score Response (Comments) Value History N/A 0 EKG N/A 0 Age N/A 0 Risk Factors N/A 0 Troponin N/A 0 Total 0 I personally scribed for RAMAN GAMBOA MD ([email or web address]) on 12/11/24 at 02:20. Electronically submitted by Caity Villegas ([email or web address]). RAMAN GAMBOA MD Dec 11, 2024 02:20
[2024-12-11] MEDS: IPRATROPIUM BROM 0.5 MG/2.5ML INH SOL NEB ONE (02:33)
[2024-12-11] MEDS: ALBUTEROL SULF 2.5 MG/0.5ML(0.5%) NEB SOLN NEB ONE (02:33)
[2024-12-11 02:36] LABS: Base Excess 0.7 mmol/L (-2.0-3.0)
[2024-12-11] MEDS: SODIUM CHLORIDE 0.9% 1,000 ML IV ONE ×3 (02:43→07:30)
[2024-12-11 02:58] LABS: Hematocrit 50.0 % (41.0-53.0); Hemoglobin 16.4 g/dL (13.5-17.5); Mean Corpuscular Hemoglobin 28.9 pg (28.0-32.0); Mean Corpuscular Volume 87.9 fL (80.0-100.0); Nucleated Red Blood Cells % 0.1 %
[2024-12-11] MEDS: VANCOMYCIN 1GM/200ML PM 200 ML IV ONE (03:00)
[2024-12-11 03:21] LABS: Lactic Acid w/Reflex 3.9 mmol/L (0.4-2.0)
--- NOTE | 2024-12-11 03:30 | DVH ---
CHEST RADIOGRAPH Indication: Suspected Sepsis Technique: Single frontal view of the chest was obtained COMPARISON: XY CHEST PORTABLE on DOS: 11/29/24, XY CHEST XRAY 1 VIEW on DOS: 11/22/24, XY CHEST XRAY 1 V IEW on DOS: 11/21/24, XY CHEST XRAY 1 VIEW on DOS: 11/20/24, XY CHEST XRAY 1 VIEW on DOS: 11/16/24 FINDINGS: Lines and Tubes: Midline tracheostomy. Ventriculoperitoneal shunt catheter traverses the right neck, hemithorax and abdomen. Lungs: Diminished lung volumes with concomitant exaggeration of the pulmonary vasculature. No evidenc e of focal consolidation. Pleura: No effusion. No pneumothorax. Cardiomediastinal contours: Unremarkable Bones: Unremarkable IMPRESSION: 1. No acute disease. Diminished lung volumes. 2. Tracheostomy and ventriculoperitoneal catheter as above.
[2024-12-11 03:48] LABS: Albumin 4.1 g/dL (3.2-4.8); Anion Gap 11 (5-15); BUN/Creatinine Ratio 17.6 (10.0-20.0); Bilirubin, Total 1.0 mg/dL (0.2-1.0); Blood Urea Nitrogen 13 mg/dL (9-23); Calcium 9.9 mg/dL (8.7-10.4); Carbon Dioxide 26 mmol/L (20-31); Chloride 102 mmol/L (98-107); Potassium 4.1 mmol/L (3.5-5.1); Sodium 139 mmol/L (136-145); Total Protein 7.2 g/dL (5.7-8.2)
[2024-12-11 03:51] LABS: Alanine Aminotransferase 74 U/L (7-40); Alkaline Phosphatase 129 U/L (46-116); Glucose 92 mg/dL (74-106)
[2024-12-11] MEDS: PIPERACILLIN-TAZOB 3.375GM 100 ML IV ONE (04:12)
--- NOTE | 2024-12-11 05:09 | ECG ---
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
[2024-12-11 07:15] LABS: Urine Budding Yeast OCCASIONAL /hpf (None Seen); Urine Protein, UAD TRACE (Negative)
[2024-12-11] MEDS: LEVALBUTEROL HCL 1.25 MG/3 ML NEB NEB SCH (07:57)
--- NOTE | 2024-12-11 08:20 | DVHINCON2 ---
Date Seen: Dec 11, 2024 Allergies: Coded Allergies: NO KNOWN ALLERGIES (Unverified , 11/09/24) Home Meds Active Scripts Fluconazole (Fluconazole) 200 Mg Tab, 1 TAB PO DAILY for 3 Days, #3 TAB Prov:FLAKO WOODSON RESIDENT 12/09/24 Fluconazole (Fluconazole) 200 Mg Tab, 1 TAB PO DAILY for 3 Days, #3 TAB Prov:FLAKO WOODSON RESIDENT 12/09/24 Reported Medications Levetiracetam (Keppra) 1,000 Mg Tab, 10 LIQ PO BID, #60 TAB 5 Refills 11/14/24 Amino Acids-Protein Hydrolysat (PRO-STAT) Liq, 30 ML OR DAILY, LIQ 11/14/24 Zinc Sulfate (Zinc Sulfate) 220 Mg Cap, 50 MG GT DAILY for 30 Days, MG 11/14/24 Potassium Chloride (POTASSIUM CHLORIDE CR) 10 Meq Tb, 20 MEQ GT DAILY, TAB 11/14/24 Multiple Vitamin (Multivitamins) Tab, 1 TAB GT DAILY, #30 TAB 2 Refills 11/14/24 Lorazepam (ATIVAN TABLET) 0.5 Mg Tb, 0.5 MG GT Q6HPRN PRN for SHORTNESS OF BREATH, TAB 11/14/24 Levalbuterol HCl (Levalbuterol) 1.25 Mg/0.5 Ml Neb, 1.25 MG IN Q4HP PRN for WHEEZING, INH 11/14/24 Lacosamide (Lacosamide) 150 Mg Tab, 150 MG GT BID, TAB 11/14/24 Loratadine (Claritin) 10 Mg Tab, 1 TAB PO DAILY for ALLERGIES, #30 TAB 5 Refills 11/14/24 Ipratropium-Albuterol (Ipratropium [place]/Albut) 1 Trace Trace, 1 TRACE IN Q6HPRN PRN for respiratory failure, ML 11/14/24 Glycopyrrolate (CUVPOSA) 1 Mg/5 Ml Trace, 1 MG PO Q8HPRN PRN for increased secretions, ML 11/14/24 Polyethylene Glycol 3350 (Miralax) 17 Gm Pow, 17 GM PO 3XW, POW 11/14/24 Chlorhexidine Gluconate (Mouth (CHLORHEXIDINE ORAL RINSE) 473 Ml So, 15 ML MT Q12HR, ML 6/20/25 Acetylcysteine (Acetylcysteine) 20 % Trace, 1 ML IN Q4HP PRN for thick secretions, ML 11/14/24 Diphenhydramine Hcl (Benadryl Allergy) 25 Mg Cap, 25 MG PO Q8HPRN PRN for allergies, CAP 11/14/24 Ascorbic Acid (VITAMIN C TABLET) 500 Mg Tb, 1 TAB GT BID, #60 TAB 11/14/24 Baclofen (Baclofen) 10 Mg Tab, 20 MG GT Q6HR for 30 Days, MG 11/14/24 Discontinued Scripts Pantoprazole Sodium Sesquihydr (Pantoprazole Sodium) 40 Mg Tab, 40 MG PO DAILY for 14 Days, #14 TAB Prov:FLAKO WOODSON RESIDENT 11/24/24 Prednisone (Prednisone) 20 Mg Tab, 20 MG PO DAILY for 5 Days, #5 AC Prov:FLAKO WOODSON RESIDENT 11/24/24 Current Medications Current Medications Medications (Trade) Dose Ordered Sig/Ata Route PRN Reason Start Time Stop Time Status Last Admin Levalbuterol HCl (Xopenex Medneb) 0.625 mg Q6HR NEB 12/11/24 06:00 Vital Signs Vital Signs Date Time Temp Pulse Resp B/P (MAP) Pulse Ox O2 Delivery O2 Flow Rate FiO2 12/11/24 04:01 102.0 147 36 128/86 94 8.0 30 102.0 12/11/24 02:33 Trach Collar Labs/Diagnostic Data Labs Test 12/11/24 06:00 12/11/24 04:40 12/11/24 02:36 12/11/24 02:25 Range/Units Urine Color Yellow Yellow Urine Clarity Clear Clear Urine pH 5.0 5.0-9.0 Urine Specific [place] 1.028 1.001-1.035 Urine Protein Trace H Negative Urine Ketones Negative Negative Urine Blood 3+ H Negative /uL Urine Nitrite Negative Negative Urine Bilirubin Negative Negative Urine Urobilinogen Normal Negative mg/dL Urine Leukocyte Esterase Negative Negative /uL Urine RBC 48 0 - 3 /hpf Urine Microscopic WBC < 1 0-3 /HPF Urine Squamous Epithelial Cells None seen <5 /hpf Urine Bacteria None seen None Seen /hpf Urine Granular Casts Few 0 /lpf Urine Mucus Few None Seen Urine Yeast (Budding) Occasional None Seen /hpf Urine Glucose Normal Normal mg/dL Lactic Acid Level 1.6 0.4-2.0 mmol/L White Blood Count 23.7 #H 4.4-10.8 10^3/uL Red Blood Count 5.69 4.5-5.90 10^6/uL Hemoglobin 16.4 13.5-17.5 g/dL Hematocrit 50.0 # 41.0-53.0 % Mean Corpuscular Volume 87.9 80.0-100.0 fL Mean Corpuscular Hemoglobin 28.9 28.0-32.0 pg Mean Corpuscular Hemoglobin Concent 32.9 32.0-36.0 g/dL Red Cell Distribution Width 15.4 H 11.8-14.3 % Platelet Count 266 140-450 10^3/uL Mean Platelet Volume 8.1 6.9-10.8 fL Neutrophils (%) (Auto) 87.7 H 37.0-80.0 % Lymphocytes (%) (Auto) 5.5 L 10.0-50.0 % Monocytes (%) (Auto) 5.5 0.0-12.0 % Eosinophils (%) (Auto) 0.5 0.0-7.0 % Basophils (%) (Auto) 0.8 0.0-2.0 % Neutrophils # (Auto) 20.8 H 1.6-8.6 10 ^3/uL Lymphocytes # (Auto) 1.3 0.4-5.4 10 ^3/uL Monocytes # (Auto) 1.3 0-1.3 10 ^3/uL Eosinophils # (Auto) 0.1 0-0.8 10 ^3/uL Basophils # (Auto) 0.2 0-0.2 10 ^3/uL Nucleated Red Blood Cells 0.1 % Sodium Level 139 136-145 mmol/L Potassium Level 4.1 3.5-5.1 mmol/L Chloride Level 102 98-107 mmol/L Carbon Dioxide Level 26 20-31 mmol/L Anion Gap 11 5-15 Blood Urea Nitrogen 13 9-23 mg/dL Creatinine 0.74 0.700-1.30 mg/dL Glomerular Filtration Rate Calc 111 >90 mL/min BUN/Creatinine Ratio 17.6 10.0-20.0 Serum Glucose 92 74-106 mg/dL Calcium Level 9.9 8.7-10.4 mg/dL Total Bilirubin 1.0 0.2-1.0 mg/dL Aspartate Amino Transferase (AST) 43 H 13-40 U/L Alanine Aminotransferase (ALT) 74 H 7-40 U/L Alkaline Phosphatase 129 H 46-116 U/L Total Protein 7.2 5.7-8.2 g/dL Albumin 4.1 3.2-4.8 g/dL Blood Gas Specimen Type Arterial Blood Gas Sample Site Right radial Blood Gas Patient Temperature 37.0 Arterial Blood Date Drawn [id number] Arterial Blood pH 7.483 H 7.350-7.450 Arterial Blood Partial Pressure CO2 31.5 L 35.0-48.0 mmHg Arterial Blood Partial Pressure O2 64.8 L 83.0-108.0 mmHg Arterial Blood HCO3 23.1 21.0-28.0 mmol/L Arterial Blood Oxygen Saturation 93.9 L 94.0-98.0 % Arterial Blood Base Excess 0.7 -2.0-3.0 mmol/L Arterial Blood Oxyhemoglobin 91.9 L 94.0-98.0 % Arterial Blood Carboxyhemoglobin 1.3 0.5-1.5 % Arterial Blood Methemoglobin 0.8 0.0-1.5 % José Miguel Test Modified Blood Gas Total Hemoglobin 17.10 13.5-17.5 g/dL Blood Gas Liter Flow 8.00 Blood Gas Modality Cool aerosol FiO2 % 30.0 ASTER [employer]OTH [employer]SULTANT Dec 11, 2024 08:20
[2024-12-11] MEDS ORDERED: HYDROcodone-ACET 5/325MG TAB PO PRN (08:45)
[2024-12-11] MEDS ORDERED: MORPHINE SULFATE INJ 2 MG/ml SYRG IV PRN (08:45)
[2024-12-11] MEDS ORDERED: VANCOMYCIN PER PHARMACY 0 MG IV SCH (08:45)
[2024-12-11] MEDS ORDERED: ONDANSETRON HCL 4 MG/2 ML VIAL IV PRN (08:45)
[2024-12-11] MEDS ORDERED: NITROGLYCERIN 0.4 MG SL TAB SL PRN (08:45)
[2024-12-11] MEDS ORDERED: ACETAMINOPHEN 325 MG TAB PO PRN ×2 (08:45→10:00)
--- NOTE | 2024-12-11 08:53 | DVHHP2 ---
History of Present Illness Reason for Visit: SOB History of Present Illness Allen Molina is a 49-year-old male with past medical history of seizures, TBI, nonverbal at baseline, chronic bed-bound, endocarditis diagnosed in 2013 per mom, and chronic trach who presents to the ED with shortness of breath. Mom states that the patient was here at the hospital on November 28 and was discharged as well as another readmission on December 09 and was discharged as well with pneumonia and sepsis. Patient's mom Amelia at the bedside. She is stating that the patient has been in and out of the hospital for the same problem. She states that she requested for the hospitalist to check and see if he had endocarditis the last visit and they did not check as she states. Patient's mom also stated that she wanted patient to get transferred to another facility but does not know where. Patient's mom also states that her daughter who is more aware of the patient's medical history is coming [place]. Patient's mom is stating that once he comes off the monitoring that he gets septic and she is aware of it. PAPER MAKER: Seizure Past Medical History Chronic bed-bound Nonverbal at baseline Endocarditis TBI Smoke: No ALCOHOL: none Drugs: None Domestic Violence: Neg Review of Systems Respiratory: Shortness of breath Allergies: Coded Allergies: NO KNOWN ALLERGIES (Unverified , 11/09/24) Medications Current Medications Medications Dose Ordered Sig/Ata Route Start Time Stop Time Status Last Admin Dose Admin Levalbuterol HCl 0.625 mg Q6HR NEB 12/11/24 06:00 12/11/24 07:57 0.625 MG Exam Vital Signs Vital Signs Date Time Temp Pulse Resp B/P (MAP) Pulse Ox O2 Delivery O2 Flow Rate FiO2 12/11/24 08:15 99.8 115 23 132/73 (92) 97 99.8 12/11/24 07:57 T-piece 8.0 12/11/24 07:57 N/A Respiratory: Normal air movement Cardiovascular: Normal S1, Normal S2 Abdominal: Normal bowel sounds, Soft Labs/Xrays Labs Test 12/11/24 06:00 12/11/24 04:40 12/11/24 02:36 12/11/24 02:25 Range/Units Urine Color Yellow Yellow Urine Clarity Clear Clear Urine pH 5.0 5.0-9.0 Urine Specific [place] 1.028 1.001-1.035 Urine Protein Trace H Negative Urine Ketones Negative Negative Urine Blood 3+ H Negative /uL Urine Nitrite Negative Negative Urine Bilirubin Negative Negative Urine Urobilinogen Normal Negative mg/dL Urine Leukocyte Esterase Negative Negative /uL Urine RBC 48 0 - 3 /hpf Urine Microscopic WBC < 1 0-3 /HPF Urine Squamous Epithelial Cells None seen <5 /hpf Urine Bacteria None seen None Seen /hpf Urine Granular Casts Few 0 /lpf Urine Mucus Few None Seen Urine Yeast (Budding) Occasional None Seen /hpf Urine Glucose Normal Normal mg/dL Lactic Acid Level 1.6 0.4-2.0 mmol/L White Blood Count 23.7 #H 4.4-10.8 10^3/uL Red Blood Count 5.69 4.5-5.90 10^6/uL Hemoglobin 16.4 13.5-17.5 g/dL Hematocrit 50.0 # 41.0-53.0 % Mean Corpuscular Volume 87.9 80.0-100.0 fL Mean Corpuscular Hemoglobin 28.9 28.0-32.0 pg Mean Corpuscular Hemoglobin Concent 32.9 32.0-36.0 g/dL Red Cell Distribution Width 15.4 H 11.8-14.3 % Platelet Count 266 140-450 10^3/uL Mean Platelet Volume 8.1 6.9-10.8 fL Neutrophils (%) (Auto) 87.7 H 37.0-80.0 % Lymphocytes (%) (Auto) 5.5 L 10.0-50.0 % Monocytes (%) (Auto) 5.5 0.0-12.0 % Eosinophils (%) (Auto) 0.5 0.0-7.0 % Basophils (%) (Auto) 0.8 0.0-2.0 % Neutrophils # (Auto) 20.8 H 1.6-8.6 10 ^3/uL Lymphocytes # (Auto) 1.3 0.4-5.4 10 ^3/uL Monocytes # (Auto) 1.3 0-1.3 10 ^3/uL Eosinophils # (Auto) 0.1 0-0.8 10 ^3/uL Basophils # (Auto) 0.2 0-0.2 10 ^3/uL Nucleated Red Blood Cells 0.1 % Sodium Level 139 136-145 mmol/L Potassium Level 4.1 3.5-5.1 mmol/L Chloride Level 102 98-107 mmol/L Carbon Dioxide Level 26 20-31 mmol/L Anion Gap 11 5-15 Blood Urea Nitrogen 13 9-23 mg/dL Creatinine 0.74 0.700-1.30 mg/dL Glomerular Filtration Rate Calc 111 >90 mL/min BUN/Creatinine Ratio 17.6 10.0-20.0 Serum Glucose 92 74-106 mg/dL Calcium Level 9.9 8.7-10.4 mg/dL Total Bilirubin 1.0 0.2-1.0 mg/dL Aspartate Amino Transferase (AST) 43 H 13-40 U/L Alanine Aminotransferase (ALT) 74 H 7-40 U/L Alkaline Phosphatase 129 H 46-116 U/L Total Protein 7.2 5.7-8.2 g/dL Albumin 4.1 3.2-4.8 g/dL Blood Gas Specimen Type Arterial Blood Gas Sample Site Right radial Blood Gas Patient Temperature 37.0 Arterial Blood Date Drawn [id number] Arterial Blood pH 7.483 H 7.350-7.450 Arterial Blood Partial Pressure CO2 31.5 L 35.0-48.0 mmHg Arterial Blood Partial Pressure O2 64.8 L 83.0-108.0 mmHg Arterial Blood HCO3 23.1 21.0-28.0 mmol/L Arterial Blood Oxygen Saturation 93.9 L 94.0-98.0 % Arterial Blood Base Excess 0.7 -2.0-3.0 mmol/L Arterial Blood Oxyhemoglobin 91.9 L 94.0-98.0 % Arterial Blood Carboxyhemoglobin 1.3 0.5-1.5 % Arterial Blood Methemoglobin 0.8 0.0-1.5 % José Miguel Test Modified Blood Gas Total Hemoglobin 17.10 13.5-17.5 g/dL Blood Gas Liter Flow 8.00 Blood Gas Modality Cool aerosol FiO2 % 30.0 CHEST RADIOGRAPH Indication: Suspected Sepsis Technique: Single frontal view of the chest was obtained COMPARISON: XY CHEST PORTABLE on DOS: 11/29/24, XY CHEST XRAY 1 VIEW on DOS: 11/22/24, XY CHEST XRAY 1 VIEW on DOS: 11/21/24, XY CHEST XRAY 1 VIEW on DOS: 11/20/24, XY CHEST XRAY 1 VIEW on DOS: 11/16/24 FINDINGS: Lines and Tubes: Midline tracheostomy. Ventriculoperitoneal shunt catheter traverses the right neck, hemithorax and abdomen. Lungs: Diminished lung volumes with concomitant exaggeration of the pulmonary vasculature. No evidence of focal consolidation. Pleura: No effusion. No pneumothorax. Cardiomediastinal contours: Unremarkable Bones: Unremarkable IMPRESSION: 1. No acute disease. Diminished lung volumes. 2. Tracheostomy and ventriculoperitoneal catheter as above. SEPSIS Sepsis Screen Date sepsis recognized/suspect: Dec 11, 2024 Time Sepsis recognized/suspect: 218 Recent Procedure: No On Antibiotic Therapy: Yes Respiratory Rate >20: Yes Heart Rate >90: Yes Temp<36 C (96.8 F) or >38.3 C: Yes SBP <90 or MAP <65 mmHG: No New Acute Mental Status Change: No Is the patient on CPAP, BIPAP,: Yes Physician Orders Sodium Chloride 0.9% (12/11/24 02:15) Vital Signs Q1HR (12/11/24 02:07) Saline Lock (12/11/24 02:07) Adult Nurse Practitioner (12/11/24 ) Rectal/Core Temps Only (12/11/24 02:07) Notify Md If Abnormal Vs (12/11/24 02:07) Blood Culture (12/11/24 02:07) Chest Xray 1 View (12/11/24 02:07) Abg W/ Co-Ox (12/11/24 02:07) Levalbuterol Hcl (Xopenex Medneb) (12/11/24 06:00) Electrocardigram (12/11/24 03:27) Straight Cath. (12/11/24 ) Admit (12/11/24 08:39) Allergies (12/11/24 08:39) Code Status (12/11/24 08:39) 0.9% Ns 1000 Ml (12/11/24 08:45) Hydrocodone-Acet 5/325mg Tab ([place]ise 5/32 (12/11/24 08:45) Ondansetron Hcl (Zofran) (12/11/24 08:45) Enoxaparin Sodium (Lovenox) (12/11/24 10:00) Complete Blood Count (12/12/24 04:00) Comprehensive Metabolic Panel (12/12/24 04:00) Acetaminophen Tablet (Tylenol Tablet) (12/11/24 08:45) Nitroglycerin Sublingual (Ntrostat Subli (12/11/24 08:45) Morphine Sulfate Injection (12/11/24 08:45) Stat Ekg For Chest Pain (12/11/24 08:39) Notify Of Changes From Base (12/11/24 08:39) Early Childhood Coordinator For 24 Hours (12/11/24 08:39) Emergency Dysrhythmia Protocol (12/11/24 08:39) Rhythm Strips Once Every Shift (12/11/24 08:39) Oxygen By Nasal Cannula (12/11/24 08:39) Respiratory Culture W/ Gs (12/11/24 08:39) * Dietary Consult (12/11/24 08:39) Urine Bacterial Culture (12/11/24 08:39) Vancomycin Per Pharmacy (12/11/24 08:45) Zosyn Extended Infusion (12/11/24 14:00) Echo 2d Mode Cardiac Dop (12/11/24 08:52) Vital Signs Date Time Temp Pulse Resp B/P (MAP) Pulse Ox O2 Delivery O2 Flow Rate FiO2 12/11/24 08:15 99.8 115 23 132/73 (92) 97 99.8 12/11/24 08:07 110 20 98 12/11/24 08:00 115 12/11/24 07:57 117 22 98 12/11/24 07:57 98 T-piece 8.0 12/11/24 07:57 98 T-piece 8 N/A Cool Aerosol 12/11/24 06:00 99.3 122 36 143/74 (97) 95 99.3 12/11/24 04:01 102.0 147 36 128/86 94 8.0 30 102.0 12/11/24 04:00 133 12/11/24 04:00 100.0 134 32 118/66 (83) 94 100.0 12/11/24 02:33 36 95 Trach Collar 8 30 30 12/11/24 02:20 147 12/11/24 02:19 149 34 92 Trach Collar 8 N/A 12/11/24 02:19 102.0 149 34 114/53 (73) 92 102.0 12/11/24 02:15 102.0 12/11/24 01:56 147 12/11/24 01:51 100.3 143 28 128/86 (100) 100 100.3 Laboratory Tests Test 12/11/24 02:36 12/11/24 04:40 Lactic Acid Level 3.9 mmol/L (0.4-2.0) *H 1.6 mmol/L (0.4-2.0) White Blood Count 23.7 10^3/uL (4.4-10.8) #H Medications Medications Dose Ordered Sig/Ata Route Start Time Stop Time Status Last Admin Dose Admin Acetaminophen 650 mg ONCE ONCE MD 12/11/24 02:15 12/11/24 02:16 DC 12/11/24 02:15 650 MG Albuterol 2.5 mg ONCE ONCE NEB 12/11/24 02:15 12/11/24 02:16 DC 12/11/24 02:33 2.5 MG Ipratropium [place] 0.5 mg ONCE ONCE NEB 12/11/24 02:15 12/11/24 02:16 DC 12/11/24 02:33 0.5 MG Levalbuterol HCl 0.625 mg Q6HR NEB 12/11/24 06:00 12/11/24 07:57 0.625 MG Piperacillin Sod/ Tazobactam Sod 100 ml @ 100 mls/hr ONCE ONCE IV 12/11/24 03:30 12/11/24 04:29 DC 12/11/24 04:12 100 MLS/HR Sodium Chloride 1,000 ml @ 1,000 mls/hr Q1H ONCE IV 12/11/24 02:15 12/11/24 03:14 DC 12/11/24 02:43 1,000 MLS/HR Sodium Chloride 1,000 ml @ 1,000 mls/hr Q1H ONCE IV 12/11/24 03:30 12/11/24 04:29 DC 12/11/24 05:55 1,000 MLS/HR Vancomycin HCl 200 ml @ 200 mls/hr ONCE ONCE IV 12/11/24 02:30 12/11/24 03:29 DC 12/11/24 03:00 200 MLS/HR Assessment/Plan Assessment/Plan Assessment Acute hypoxic respiratory failure Leukocytosis likely secondary to sepsis Chronic trach Nonverbal Chronic bed-bound G-tube A flutter on EKG now sinus tach upon examination Pyrexia likely due to sepsis Acute encephalopathy History of endocarditis History of TBI History of seizures Plan Admit to tele EKG noted Supportive oxygen ABG IV antibiotics-vancomycin +Zosyn Ceftriaxone given in ED Duo nebs NS 3 L given ED IV fluids Antipyretics Chest x-ray UA Blood culture Sputum culture Urine culture Echo ordered CT head ordered UA Dietary consult for tube feeds Home medications reconciled DVT prophylaxis-Lovenox PUD prophylaxis-PPIs Discussed plan of care with patient's mom and nurse [id number] Preventive counseling healthy eating habits, physical activity, and regular checkups Plan discussed with: Other (mother) My Orders Orders - ASTER BOOTH [employer] DEVELOPMENT ENGINEER Procedure Category Date Status Time Admit ADMIT 12/11/24 Transmitted 08:39 Allergies [facility] 12/11/24 In Process 08:39 Code Status CODE 12/11/24 Transmitted 08:39 0.9% Ns 1000 Ml PHA 12/11/24 Transmitted 08:45 Hydrocodone-Acet PHA 12/11/24 Transmitted 5/325mg Tab (Cochise 08:45 Ondansetron Hcl PHA 12/11/24 Transmitted (Zofran) 08:45 Enoxaparin Sodium PHA 12/11/24 Transmitted (Lovenox) 10:00 Complete Blood Count LAB 12/12/24 Verified 04:00 Comprehensive LAB 12/12/24 Verified Metabolic Panel 04:00 Acetaminophen Tablet PHA 12/11/24 Transmitted (Tylenol Tablet) 08:45 Nitroglycerin PHA 12/11/24 Transmitted Sublingual (Ntrostat 08:45 Morphine Sulfate PHA 12/11/24 Transmitted Injection 08:45 Stat Ekg For Chest [facility] 12/11/24 In Process Pain 08:39 Notify Of Changes [facility] 12/11/24 Transmitted From Base 08:39 Early Childhood Coordinator For [facility] 12/11/24 Transmitted 24 Hours 08:39 Emergency Dysrhythmia [facility] 12/11/24 Transmitted Protocol 08:39 Rhythm Strips Once [facility] 12/11/24 Transmitted Every Shift 08:39 Oxygen By Nasal RT 12/11/24 Transmitted Cannula 08:39 Respiratory Culture [place] 12/11/24 Transmitted W/ Gs 08:39 * Dietary Consult CONS 12/11/24 Transmitted 08:39 Urine Bacterial [place] 12/11/24 Transmitted Culture 08:39 Vancomycin Per [facility] 12/11/24 Transmitted Pharmacy 08:45 Zosyn Extended [facility] 12/11/24 Transmitted Infusion 14:00 Echo 2d Mode Cardiac US 12/11/24 Verified DOP 08:52 Date of Service: Dec 11, 2024 Billing Provider: ASTER BOOTH Common Visit Codes: [id number] INP/OBS CARE (HIGH) Secondary Visit Codes: [id number] COUNSELING IND ASTER BOOTH Dec 11, 2024 08:53
[2024-12-11] MEDS ORDERED: ACETAMINOPHEN 650 MG RECT SUPP PR PRN (09:45)
[2024-12-11] MEDS ORDERED: ZINC SULFATE 50 MG GT SCH (10:00)
[2024-12-11] MEDS: Pro-Stat SF 30ml Vanilla GT SCH (10:00)
[2024-12-11] MEDS: POLYETHYLENE GLYCOL 17 GM PWDR PO SCH (10:00)
[2024-12-11] MEDS: SODIUM CHLORIDE 0.9% 1,000 ML IV SCH (10:30)
[2024-12-11] MEDS: ENOXAPARIN SOD 40 MG/0.4 ML SYRINGE SC SCH (10:36)
[2024-12-11] MEDS: LACOSAMIDE 50 MG TAB GT SCH (10:37)
[2024-12-11] MEDS: MULTIPLE VITAMIN TAB GT SCH (10:37)
[2024-12-11] MEDS: ASCORBIC ACID 500 MG TAB GT SCH (10:37)
[2024-12-11] MEDS: ALBUTEROL SULF 2.5 MG/0.5ML(0.5%) NEB SOLN NEB SCH (10:43)
[2024-12-11] MEDS: IPRATROPIUM BROM 0.5 MG/2.5ML INH SOL NEB SCH (10:44)
[2024-12-11] MEDS: BACLOFEN 10 MG TAB GT SCH (12:28)
[2024-12-11] MEDS: diphenhdrAMINE HCL 50 MG/1 ML VL IV ONE (13:19)
[2024-12-11] MEDS: PIPERACILLIN-TAZOB 3.375GM 100 ML IV SCH (14:00)
--- NOTE | 2024-12-11 17:40 | DVHINCON2 ---
Date Seen: Dec 11, 2024 Referring Physician CHASE Marques Reason for Consultation Hx of endocarditis History of Present Illness This is a 49-year-old male patient who presents to the emergency room with chief complaint of tachycardia and pyrexia. The patient's mother, who is his primary caregiver is able to provide accurate history. The patient's mother states that the patient was recently seen at this facility and discharged earlier this month. Upon reviewing records, the patient discharged from this facility with sepsis, pneumonia, and ESBL Pseudomonas. He now returns presenting with low- grade fevers at home and tachycardia. Cardiology has been consulted at this [facility] for LEYDI request. Initial twelve lead electrocardiogram reveals a narrow complex tachycardia (reviewed with Dr. Noriega, possibly Aflutter vs ST). A repeat twelve lead electrocardiogram was done at time of consultation and reveals sinus tachycardia with PACs. Significant past medical history includes infective endocarditis in 2013, brain aneurysm, traumatic brain injury, ventric uloperitoneal shunt, quadriplegia, tracheostomy, seizure disorder, and bed- bound. Past Medical History Past medical history reviewed. No other significant than mentioned above. Past Surgical History Tracheostomy Ventriculoperitoneal shunt Gastrostomy Family History Family history reviewed. Social History Denies the use of tobacco, alcohol or illicit drugs. Allergies: Coded Allergies: Piperacillin (Verified Adverse Reaction, Intermediate, URTICARIA, 12/11/24) Tazobactam (Verified Adverse Reaction, Intermediate, URTICARIA, 12/11/24) Home Meds Active Scripts Fluconazole (Fluconazole) 200 Mg Tab, 1 TAB PO DAILY for 3 Days, #3 TAB Prov:ALIN WOODSONHIRA RESIDENT 12/09/24 Fluconazole (Fluconazole) 200 Mg Tab, 1 TAB PO DAILY for 3 Days, #3 TAB Prov:KHAIALIN NEGRONFLAKO RESIDENT 12/09/24 Reported Medications Levetiracetam (Keppra) 1,000 Mg Tab, 10 LIQ PO BID, #60 TAB 5 Refills 11/14/24 Amino Acids-Protein Hydrolysat (PRO-STAT) Liq, 30 ML OR DAILY, LIQ 11/14/24 Zinc Sulfate (Zinc Sulfate) 220 Mg Cap, 50 MG GT DAILY for 30 Days, MG 11/14/24 Potassium Chloride (POTASSIUM CHLORIDE CR) 10 Meq Tb, 20 MEQ GT DAILY, TAB 25 Multiple Vitamin (Multivitamins) Tab, 1 TAB GT DAILY, #30 TAB 2 Refills 11/14/24 Lorazepam (ATIVAN TABLET) 0.5 Mg Tb, 0.5 MG GT Q6HPRN PRN for SHORTNESS OF BREATH, TAB 11/14/24 Levalbuterol HCl (Levalbuterol) 1.25 Mg/0.5 Ml Neb, 1.25 MG IN Q4HP PRN for WHEEZING, INH 11/14/24 Lacosamide (Lacosamide) 150 Mg Tab, 150 MG GT BID, TAB 11/14/24 Loratadine (Claritin) 10 Mg Tab, 1 TAB PO DAILY for ALLERGIES, #30 TAB 5 Refills 11/14/24 Ipratropium-Albuterol (Ipratropium [place]/Albut) 1 Trace Trace, 1 TRACE IN Q6HPRN PRN for respiratory failure, ML 11/14/24 Glycopyrrolate (CUVPOSA) 1 Mg/5 Ml Trcae, 1 MG PO Q8HPRN PRN for increased secretions, ML 11/14/24 Polyethylene Glycol 3350 (Miralax) 17 Gm Pow, 17 GM PO 3XW, POW 11/14/24 Chlorhexidine Gluconate (Mouth (CHLORHEXIDINE ORAL RINSE) 473 Ml So, 15 ML MT Q12HR, ML 11/14/24 Acetylcysteine (Acetylcysteine) 20 % Trace, 1 ML IN Q4HP PRN for thick secretions, ML 11/14/24 Diphenhydramine Hcl (Benadryl Allergy) 25 Mg Cap, 25 MG PO Q8HPRN PRN for allergies, CAP 11/14/24 Ascorbic Acid (VITAMIN C TABLET) 500 Mg Tb, 1 TAB GT BID, #60 TAB 11/14/24 Baclofen (Baclofen) 10 Mg Tab, 20 MG GT Q6HR for 30 Days, MG 11/14/24 Discontinued Scripts Pantoprazole Sodium Sesquihydr (Pantoprazole Sodium) 40 Mg Tab, 40 MG PO DAILY for 14 Days, #14 TAB Prov:FLAKO WOODSON RESIDENT 11/24/24 Prednisone (Prednisone) 20 Mg Tab, 20 MG PO DAILY for 5 Days, #5 AC Prov:FLAKO WOODSON RESIDENT 11/24/24 Home Meds Home medications reviewed. Current Medications Current Medications Medications (Trade) Dose Ordered Sig/Ata Route PRN Reason Start Time Stop Time Status Last Admin Levalbuterol HCl (Xopenex Medneb) 0.625 mg Q6HR NEB 12/11/24 06:00 Hold 12/11/24 07:57 Sodium Chloride 1,000 ml @ 120 mls/hr Q8H20M IV 12/11/24 09:56 12/11/24 10:30 Acetaminophen/ Hydrocodone Bitart ([place] 5/325MG Tab) 1 tab Q4HP PRN PO MODERATE PAIN (4-6 PAIN SCALE) 12/11/24 08:45 Ondansetron HCl (Zofran) 4 mg Q4HP PRN IV NAUSEA / VOMITING 12/11/24 08:45 Enoxaparin Sodium (Lovenox) 40 mg DAILY SC 12/11/24 10:00 12/11/24 10:36 Acetaminophen (Tylenol Tablet) 650 mg Q6HP PRN PO PAIN SCALE 1-3 OR TEMP>100.4 12/11/24 08:45 12/11/24 09:48 DC Nitroglycerin (Ntrostat Sublingual) 0.4 mg Q5MINP PRN SL FOR CHEST PAIN 12/11/24 08:45 Morphine Sulfate 2 mg Q30M PRN IV FOR CHEST PAIN 12/11/24 08:45 Vancomycin HCl 0 ml @ 0 mls/hr UD IV 12/11/24 08:45 UNV Piperacillin Sod/ Tazobactam Sod 100 ml @ 25 mls/hr Q8HR IV 12/11/24 14:00 Amino Acid Protein (Pro-Stat Sugar Free) 30 ml DAILY GT 12/11/24 10:00 12/11/24 13:53 DC Ascorbic Acid (Vitamin C Tablet) 500 mg BID GT 12/11/24 10:00 12/11/24 10:37 Baclofen (Liorisal Tablet) 20 mg Q6HR GT 12/11/24 12:00 12/11/24 12:28 Multivitamins (Mvi Tab) 1 tab DAILY GT 12/11/24 10:00 12/11/24 10:37 Polyethylene Glycol (Miralax 17GM Powder) 17 gm DAILY PO 12/11/24 10:00 12/11/24 10:35 Lacosamide (Vimpat) 150 mg BID GT 12/11/24 10:00 12/11/24 10:37 Levetiracetam (Keppra Oral Solution) 1,000 mg BID GT 12/11/24 10:00 12/11/24 11:04 Patient Own Medication 50 mg DAILY GT 12/11/24 10:00 12/11/24 09:47 DC Albuterol (Ventolin Medneb) 2.5 mg Q4HWA [facility] 12/11/24 10:00 12/11/24 14:50 Ipratropium [place] (Atrovent Medneb) 0.5 mg Q4HWA [facility] 12/11/24 10:00 12/11/24 14:50 Acetaminophen (Tylenol Suppository) 650 mg Q6HP PRN [place] MILD PAIN (1-3 PAIN SCALE) 12/11/24 09:45 Acetaminophen (Tylenol Tablet) 650 mg Q6HP PRN PO TEMP>100.4 12/11/24 10:00 Cefepime HCl 50 ml @ 12.5 mls/hr Q8HR IV 12/11/24 15:00 UNV Review of Systems Constitutional: Pyrexia Ears, Nose, & Throat: No symptom reported Eyes: No symptom reported Neurological: No symptoms reported Pulmonary/Respiratory: No symptoms reported Cardiovascular: No symptom reported Gastrointestinal: No symptom reported Genitourinary: No symptom reported Musculoskeletal: No symptom reported Skin: No symptom reported Psychiatric: No symptom reported Endocrine: No symptom reported Hematologic/Lymphatic: No symptom reported Vital Signs Vital Signs Date Time Temp Pulse Resp B/P (MAP) Pulse Ox O2 Delivery O2 Flow Rate FiO2 12/11/24 15:52 112 12/11/24 14:40 25 95 12/11/24 14:00 99.0 115/64 (81) 99.0 12/11/24 09:48 Trach Collar 7 N/A Physical Exam General Appearance: Cooperative. Well-developed. Well-nourished. No acute distress. Pulmonary/Respiratory: Clear, bilateral breaths sounds. Tracheostomy in place Cardiovascular/Chest: Regular rate and rhythm. Peripheral Pulses: 2+ Radial (R). 2+ Radial (L). 2+ Pedal (R). 2+ Pedal (L) Abdominal Exam: Normal bowel sounds. Ankle Exam: Negative ankle edema Lower extremities: Negative lower extremity edema Neuro/Mental Status: A/OX4, coherent. Thoughts/Psych: Normal thought pattern. Appropriate mood and affect. Good judgment and insight. Appearance: No acute distress. Skin Exam: Normal inspection. Normal color. Warm and dry. Labs/Diagnostic Data Labs Test 12/11/24 06:00 12/11/24 04:40 12/11/24 02:36 12/11/24 02:25 Range/Units Urine Color Yellow Yellow Urine Clarity Clear Clear Urine pH 5.0 5.0-9.0 Urine Specific [place] 1.028 1.001-1.035 Urine Protein Trace H Negative Urine Ketones Negative Negative Urine Blood 3+ H Negative /uL Urine Nitrite Negative Negative Urine Bilirubin Negative Negative Urine Urobilinogen Normal Negative mg/dL Urine Leukocyte Esterase Negative Negative /uL Urine RBC 48 0 - 3 /hpf Urine Microscopic WBC < 1 0-3 /HPF Urine Squamous Epithelial Cells None seen <5 /hpf Urine Bacteria None seen None Seen /hpf Urine Granular Casts Few 0 /lpf Urine Mucus Few None Seen Urine Yeast (Budding) Occasional None Seen /hpf Urine Glucose Normal Normal mg/dL Lactic Acid Level 1.6 0.4-2.0 mmol/L White Blood Count 23.7 #H 4.4-10.8 10^3/uL Red Blood Count 5.69 4.5-5.90 10^6/uL Hemoglobin 16.4 13.5-17.5 g/dL Hematocrit 50.0 # 41.0-53.0 % Mean Corpuscular Volume 87.9 80.0-100.0 fL Mean Corpuscular Hemoglobin 28.9 28.0-32.0 pg Mean Corpuscular Hemoglobin Concent 32.9 32.0-36.0 g/dL Red Cell Distribution Width 15.4 H 11.8-14.3 % Platelet Count 266 140-450 10^3/uL Mean Platelet Volume 8.1 6.9-10.8 fL Neutrophils (%) (Auto) 87.7 H 37.0-80.0 % Lymphocytes (%) (Auto) 5.5 L 10.0-50.0 % Monocytes (%) (Auto) 5.5 0.0-12.0 % Eosinophils (%) (Auto) 0.5 0.0-7.0 % Basophils (%) (Auto) 0.8 0.0-2.0 % Neutrophils # (Auto) 20.8 H 1.6-8.6 10 ^3/uL Lymphocytes # (Auto) 1.3 0.4-5.4 10 ^3/uL Monocytes # (Auto) 1.3 0-1.3 10 ^3/uL Eosinophils # (Auto) 0.1 0-0.8 10 ^3/uL Basophils # (Auto) 0.2 0-0.2 10 ^3/uL Nucleated Red Blood Cells 0.1 % Sodium Level 139 136-145 mmol/L Potassium Level 4.1 3.5-5.1 mmol/L Chloride Level 102 98-107 mmol/L Carbon Dioxide Level 26 20-31 mmol/L Anion Gap 11 5-15 Blood Urea Nitrogen 13 9-23 mg/dL Creatinine 0.74 0.700-1.30 mg/dL Glomerular Filtration Rate Calc 111 >90 mL/min BUN/Creatinine Ratio 17.6 10.0-20.0 Serum Glucose 92 74-106 mg/dL Calcium Level 9.9 8.7-10.4 mg/dL Total Bilirubin 1.0 0.2-1.0 mg/dL Aspartate Amino Transferase (AST) 43 H 13-40 U/L Alanine Aminotransferase (ALT) 74 H 7-40 U/L Alkaline Phosphatase 129 H 46-116 U/L Total Protein 7.2 5.7-8.2 g/dL Albumin 4.1 3.2-4.8 g/dL Blood Gas Specimen Type Arterial Blood Gas Sample Site Right radial Blood Gas Patient Temperature 37.0 Arterial Blood Date Drawn [id number] Arterial Blood pH 7.483 H 7.350-7.450 Arterial Blood Partial Pressure CO2 31.5 L 35.0-48.0 mmHg Arterial Blood Partial Pressure O2 64.8 L 83.0-108.0 mmHg Arterial Blood HCO3 23.1 21.0-28.0 mmol/L Arterial Blood Oxygen Saturation 93.9 L 94.0-98.0 % Arterial Blood Base Excess 0.7 -2.0-3.0 mmol/L Arterial Blood Oxyhemoglobin 91.9 L 94.0-98.0 % Arterial Blood Carboxyhemoglobin 1.3 0.5-1.5 % Arterial Blood Methemoglobin 0.8 0.0-1.5 % José Miguel Test Modified Blood Gas Total Hemoglobin 17.10 13.5-17.5 g/dL Blood Gas Liter Flow 8.00 Blood Gas Modality Cool aerosol FiO2 % 30.0 Assessment Sepsis, rule out infective endocarditis History of infective endocarditis Acute on chronic hypoxic respiratory failure status post tracheostomy History of brain aneurysm History of ventriculoperitoneal shunt Traumatic brain injury Quadriplegic Seizure disorder Peg tube Bed-bound Plan/Recommendation We will continue with the following plan/recommendations (Dr. Noriega): Case discussed with . The patient returns to this facility with tachycardia and pyrexia. At the time of assessment, no blood cultures available. Previous visit shows negative blood cultures. Patient's family extremely adamant about patient undergoing a transesophageal echocardiogram to evaluate for infective endocarditis given that the patient keeps coming back to the hospital for sepsis. Previous transthoracic echocardiogram on 11/11/2024 reveals an EF of 65% and does not reveal any valvular abnormalities. Barrett criteria for infective endocarditis: Negative. Patient's family still insisting on transesophageal echocardiogram to rule out infective endocarditis. At this time, we will recommend blood cultures. The patient will be scheduled for transesophageal echocardiogram per family request on 12/12/2024. Thank you for allowing us to care for this patient. Please call with any questions or concerns. Critical care time spent: 44 minutes This medical document was created using an electronic medical record system with voice recognition software and computerized dictation system. Although this document has been carefully reviewed, there might still be some phonetic and typographical errors. Occasional wrong-word or ``sound-alike substitutions may have occurred due to the inherent limitations of voice recognition software. These areas are purely typographical due to imperfections of the software programs and do not reflect any compromise in the patient's medical care. Please read the chart carefully and recognize, using context, where these substitutions have occurred. Plan discussed with: Patient NYHA Physical activity limitations: NA Date of Service: Dec 11, 2024 Billing Provider: DANIA GARNICA Cardiology Common Codes: [id number] INP/OBS CARE (High) Cardiology Consultation Codes: [id number] CONSULT <45MIN DANIA GARNICA Dec 11, 2024 17:40
[2024-12-11] MEDS: CEFEPIME 1GM/ 50ML 50 ML IV ONE (18:18)
[2024-12-11] MEDS: CEFEPIME 1GM/ 50ML 50 ML IV SCH (23:09)
[2024-12-12] VITALS (19 sets, daily range): BP systolic 93–126; BP diastolic 49–88; PULSE 18–118; RESP 18–28; TEMP 97.7–98.9; O2SAT 92–100
[2024-12-12] MEDS: IPRATROPIUM BROM 0.5 MG/2.5ML INH SOL NEB SCH (00:32)
[2024-12-12] MEDS: LEVALBUTEROL HCL 1.25 MG/3 ML NEB NEB SCH (00:32)
[2024-12-12] MEDS: VANCOMYCIN 1GM/200ML PM 200 ML IV SCH ×2 (00:35→10:29)
[2024-12-12] MEDS ORDERED: VANCOMYCIN 1GM/200ML PM 200 ML IV SCH (08:00)
[2024-12-12 08:55] LABS: Hematocrit 44.6 % (41.0-53.0); Hemoglobin 14.9 g/dL (13.5-17.5); Mean Corpuscular Hemoglobin 29.0 pg (28.0-32.0); Mean Corpuscular Volume 86.7 fL (80.0-100.0); Nucleated Red Blood Cells % 0.0 %
[2024-12-12 09:16] LABS: Albumin 3.3 g/dL (3.2-4.8); Alkaline Phosphatase 83 U/L (46-116); Anion Gap 7 (5-15); BUN/Creatinine Ratio 26.7 (10.0-20.0); Bilirubin, Total 0.9 mg/dL (0.2-1.0); Blood Urea Nitrogen 16 mg/dL (9-23); Calcium 8.7 mg/dL (8.7-10.4); Carbon Dioxide 23 mmol/L (20-31); Glucose 85 mg/dL (74-106); Potassium 4.0 mmol/L (3.5-5.1); Sodium 140 mmol/L (136-145)
[2024-12-12 09:25] LABS: Alanine Aminotransferase 47 U/L (7-40); Chloride 110 mmol/L (98-107); Total Protein 5.7 g/dL (5.7-8.2)
--- NOTE | 2024-12-12 09:48 | ECG ---
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
[2024-12-12] MEDS: MIDAZOLAM HCL 2MG/2ML 2ml VIAL (1mg/ml) IV ONE ×2 (15:18→15:35)
[2024-12-12] MEDS: MIDAZOLAM HCL 2MG/2ML 2ml VIAL (1mg/ml) ONE ×2 (15:27→15:35)
[2024-12-12] MEDS: fentaNYL CITRATE 100 MCG/2 ML VL ONE (15:27)
[2024-12-12] MEDS: fentaNYL CITRATE 100 MCG/2 ML VL IV ONE ×2 (15:28→15:37)
--- NOTE | 2024-12-12 18:19 | DVHOP2 ---
Operative Report - 2 Report Details Date: 12/12/24 Preop Diagnosis: Rule out endocarditis Postop Diagnosis: Unsuccessful transesophageal echocardiography Surgeon: Melba Noriega MD Anesthesiologist: Conscious sedation Anesthesia: Local Consent: The patient was informed of the risks and benefits of the procedure. These include but are not limited to complications of anesthesia, postoperative infection, incomplete relief of symptoms, recurrence of symptoms, damage to blood vessels, nerves and tendons, deep venous thrombosis, pulmonary embolism and possible need for repeat surgery in the future. Complications: No complications Findings: Unable to terminate procedure Indications for Surgery: Fever. Rule out endocarditis. History of subacute bacterial endocarditis. Name of Procedure Performed Transesophageal echocardiogram attempted. Procedure Details Procedure Details: Patient was given conscious sedation. A proximally for two 5 mg of Versed with a proximally 400 mcg of fentanyl. The patient was still very awake and alert. He would not relax and allow the passage of the transesophageal probe. The procedure was aborted. The patient will be rescheduled in the operating room under heavy sedation for transesophageal echocardiogram to evaluate for subacute bacterial endocarditis. This was discussed with his family. Condition Guarded Disposition Still a Patient Date of Service: Dec 12, 2024 Billing Provider: MELBA NORIEGA Sr., MD Cardiology Common Codes: [id number] INP/OBS CARE (High) Cardiology Procedure Codes: 57657-OLV W/IMG DOC INCL PROB ACQ MELBA NORIEGA Sr., MD Dec 12, 2024 18:19
--- NOTE | 2024-12-12 18:31 | DVHPN2 ---
Subjective In bed non verbal Reviewed: H&P, Labs Changes from previous H/P or p: No Changes Respiratory: Shortness of breath Objective Vitals Vital Signs Date Time Temp Pulse Resp B/P (MAP) Pulse Ox O2 Delivery O2 Flow Rate FiO2 12/12/24 17:16 84 21 101/51 (68) 99 12/12/24 09:00 98.0 98.0 12/12/24 06:38 T-piece 8 30 Cool Aerosol 30 Intake/Output Intake and Output 12/12/24 07:00 Intake Total 480 ml Output Total 650 ml Balance -170 ml Intake Oral 0 ml IV Total 480 ml Output Urine Total 650 ml General Appearance: Other (non verbal) Neck: Other (trach in place) Lungs: Clear to auscultation Cardiovascular: Regular rate, Normal S1, Normal S2 Musculoskeletal: Other (contracted) Medications Current Medications Medications Dose Ordered Sig/Ata Route Start Time Stop Time Status Last Admin Dose Admin Sodium Chloride 1,000 ml @ 120 mls/hr Q8H20M IV 12/11/24 09:56 12/12/24 05:28 120 MLS/HR Acetaminophen/ Hydrocodone Bitart 1 tab Q4HP PRN PO 12/11/24 08:45 Ondansetron HCl 4 mg Q4HP PRN IV 12/11/24 08:45 Enoxaparin Sodium 40 mg DAILY SC 12/11/24 10:00 12/12/24 10:30 40 MG Nitroglycerin 0.4 mg Q5MINP PRN SL 12/11/24 08:45 Morphine Sulfate 2 mg Q30M PRN IV 12/11/24 08:45 Vancomycin HCl 0 ml @ 0 mls/hr UD IV 12/11/24 08:45 Ascorbic Acid 500 mg BID GT 12/11/24 10:00 12/12/24 10:30 500 MG Baclofen 20 mg Q6HR GT 12/11/24 12:00 12/12/24 05:28 20 MG Multivitamins 1 tab DAILY GT 12/11/24 10:00 12/12/24 10:30 1 TAB Polyethylene Glycol 17 gm DAILY PO 12/11/24 10:00 Lacosamide 150 mg BID GT 12/11/24 10:00 12/12/24 10:30 150 MG Levetiracetam 1,000 mg BID GT 12/11/24 10:00 12/11/24 23:10 1,000 MG Acetaminophen 650 mg Q6HP PRN [place] 12/11/24 09:45 Acetaminophen 650 mg Q6HP PRN PO 12/11/24 10:00 Cefepime HCl 50 ml @ 12.5 mls/hr Q8HR IV 12/11/24 22:00 12/12/24 05:28 12.5 MLS/HR Levalbuterol HCl 0.625 mg Q6HR NEB 12/12/24 00:00 12/12/24 06:38 0.625 MG Ipratropium [place] 0.5 mg Q6HR NEB 12/12/24 00:00 12/12/24 06:38 0.5 MG Vancomycin HCl 200 ml @ 200 mls/hr Q8H IV 12/12/24 10:00 12/12/24 10:29 200 MLS/HR Laboratory Results Laboratory Tests 12/12/24 08:33 Chemistry Test 12/12/24 08:33 Albumin 3.3 g/dL (3.2-4.8) Calcium Level 8.7 mg/dL (8.7-10.4) Total Protein 5.7 g/dL (5.7-8.2) LFT Test 12/12/24 08:33 Alanine Aminotransferase (ALT) 47 U/L (7-40) H Alkaline Phosphatase 83 U/L (46-116) Aspartate Amino Transferase (AST) 27 U/L (13-40) Total Bilirubin 0.9 mg/dL (0.2-1.0) Urinalysis Test 12/11/24 06:00 Urine Color Yellow (Yellow) Urine Clarity Clear (Clear) Urine pH 5.0 (5.0-9.0) Urine Specific [place] 1.028 (1.001-1.035) Urine Protein Trace (Negative) H Urine Ketones Negative (Negative) Urine Blood 3+ /uL (Negative) H Urine Nitrite Negative (Negative) Urine Bilirubin Negative (Negative) Urine Urobilinogen Normal mg/dL (Negative) Urine Leukocyte Esterase Negative /uL (Negative) Urine RBC 48 /hpf (0 - 3) Urine Microscopic WBC < 1 /HPF (0-3) Urine Squamous Epithelial Cells None seen /hpf (<5) Urine Bacteria None seen /hpf (None Seen) Urine Granular Casts Few /lpf (0) Urine Mucus Few (None Seen) Urine Yeast (Budding) Occasional /hpf (None Urine Glucose Normal mg/dL (Normal) Microbiology Microbiology Date/Time Source Procedure Growth Status 12/11/24 23:10 Nose MRSA Screen - Final Complete 12/11/24 06:00 Voided Urine Urine Culture - Preliminary Resulted 12/11/24 02:57 Blood Blood Culture - Preliminary NO GROWTH AFTER 24 HOURS OF INCUBATION. Resulted Assessment/Plan Assessment/Plan Acute hypoxic respiratory failure Leukocytosis likely secondary to sepsis Chronic trach Nonverbal Chronic bed-bound G-tube A flutter on EKG now sinus tach upon examination Pyrexia likely due to sepsis Acute encephalopathy History of endocarditis History of TBI History of seizures Continue IV abx blood cx pending going for LEYDI today monitor CBC daily Plan discussed with: Other (mother) Date of Service: Dec 12, 2024 Billing Provider: ESTEFANI BAXTER MD Common Visit Codes: [id number] INP/OBS CARE(HIGH) ESTEFANI BAXTER MD Dec 12, 2024 18:31
[2024-12-13] VITALS (14 sets, daily range): BP systolic 108–145; BP diastolic 65–74; PULSE 78–112; RESP 16–24; TEMP 97.5–98.7; O2SAT 95–99
[2024-12-13] MEDS: Jevity 1.2 Cal/Fiber 1 Liter GT SCH (10:55)
[2024-12-13 12:17] LABS: Hematocrit 39.8 % (41.0-53.0); Hemoglobin 13.4 g/dL (13.5-17.5); Mean Corpuscular Hemoglobin 30.0 pg (28.0-32.0); Mean Corpuscular Volume 89.2 fL (80.0-100.0); Nucleated Red Blood Cells % 0.0 %
[2024-12-13 12:32] LABS: Potassium 3.6 mmol/L (3.5-5.1); Sodium 140 mmol/L (136-145)
[2024-12-13 12:33] LABS: Anion Gap 7 (5-15); Carbon Dioxide 23 mmol/L (20-31)
[2024-12-13 12:39] LABS: BUN/Creatinine Ratio 18.9 (10.0-20.0); Blood Urea Nitrogen 10 mg/dL (9-23); Calcium 8.2 mg/dL (8.7-10.4); Chloride 110 mmol/L (98-107); Glucose 96 mg/dL (74-106)
--- NOTE | 2024-12-13 13:03 | DVHPN2 ---
Consult Progress Note Date Seen: Dec 13, 2024 Objective vital signs Vital Sign Date Time Temp Pulse Resp B/P (MAP) Pulse Ox O2 Delivery O2 Flow Rate FiO2 12/13/24 11:50 112 20 99 12/13/24 11:40 T-piece 6 28 Cool Aerosol 28 12/13/24 08:35 97.5 128/74 (92) 97.5 Total Intake and Output 12/12/24 12/12/24 12/13/24 15:00 23:00 07:00 Intake Total 0 ml Output Total 350 ml 450 ml Balance -350 ml -450 ml medications Current Medications Medications Dose Ordered Sig/Ata Route Start Time Stop Time Status Last Admin Dose Admin Sodium Chloride 1,000 ml @ 120 mls/hr Q8H20M IV 12/11/24 09:56 12/12/24 18:52 120 MLS/HR Acetaminophen/ Hydrocodone Bitart 1 tab Q4HP PRN PO 12/11/24 08:45 Ondansetron HCl 4 mg Q4HP PRN IV 12/11/24 08:45 Enoxaparin Sodium 40 mg DAILY SC 12/11/24 10:00 12/13/24 10:02 40 MG Nitroglycerin 0.4 mg Q5MINP PRN SL 12/11/24 08:45 Morphine Sulfate 2 mg Q30M PRN IV 12/11/24 08:45 Vancomycin HCl 0 ml @ 0 mls/hr UD IV 12/11/24 08:45 Ascorbic Acid 500 mg BID GT 12/11/24 10:00 12/13/24 10:03 500 MG Baclofen 20 mg Q6HR GT 12/11/24 12:00 12/13/24 06:24 20 MG Multivitamins 1 tab DAILY GT 12/11/24 10:00 12/13/24 10:02 1 TAB Polyethylene Glycol 17 gm DAILY PO 12/11/24 10:00 Lacosamide 150 mg BID GT 12/11/24 10:00 12/13/24 10:02 150 MG Levetiracetam 1,000 mg BID GT 12/11/24 10:00 12/13/24 10:02 1,000 MG Acetaminophen 650 mg Q6HP PRN [place] 12/11/24 09:45 Acetaminophen 650 mg Q6HP PRN PO 12/11/24 10:00 Cefepime HCl 50 ml @ 12.5 mls/hr Q8HR IV 12/11/24 22:00 12/13/24 06:23 12.5 MLS/HR Levalbuterol HCl 0.625 mg Q6HR NEB 12/12/24 00:00 12/13/24 11:40 0.625 MG Ipratropium [place] 0.5 mg Q6HR NEB 12/12/24 00:00 12/13/24 11:40 0.5 MG Vancomycin HCl 200 ml @ 200 mls/hr Q8H IV 12/12/24 10:00 12/13/24 10:01 200 MLS/HR Enteral Nutritional Formula 1,000 ml 60ML/HR GT 12/13/24 04:15 12/13/24 10:55 1,000 ML Examination: GENERAL:Abnormal, LUNGS:Abnormal, CVS:Normal, NEURO:Abnormal laboratory and microbiology Laboratory Tests 12/13/24 12:00 Test 12/13/24 12:00 Range/Units Serum Glucose 96 74-106 mg/dL Problem List/Assessment/Plan Problem List/Assessment/Plan Sepsis rule out subacute bacterial endocarditis History of infective endocarditis Acute on chronic hypoxic respiratory failure status post tracheostomy History of brain aneurysm History of ventriculoperitoneal shunt Traumatic brain injury Quadriplegic Seizure disorder Peg tube Bed-bound Plan/Recommendation (Dr. Noriega) Case discussed with Dr. Noriega. Previous transthoracic echocardiogram on 11/11/2024 revealed an EF of 65% and without valvular abnormalities. Barrett criteria for infective endocarditis: Negative. Patient's family still insisting on transesophageal echocardiogram to rule out infective endocarditis. Patient re-scheduled for heavy sedation transesophageal echocardiogram for 12/15/[address] Noriega (see report). Thank you for allowing us to care for this patient. Please call with any questions or concerns. Critical care time spent: 44 minutes This medical document was created using an electronic medical record system with voice recognition software and computerized dictation system. Although this document has been carefully reviewed, there might still be some phonetic and typographical errors. Occasional wrong-word or ``sound-alike substitutions may have occurred due to the inherent limitations of voice recognition software. These areas are purely typographical due to imperfections of the software programs and do not reflect any compromise in the patient's medical care. Please read the chart carefully and recognize, using context, where these substitutions have occurred. Plan discussed with: Other Dietary Evaluation Review Comments: 1. Recommend peptide based TF Pivot 1.5Cal @45ml/hr providing 101g protein 1620kcal supporting pt's protein needs @120% and energy needs @93%. 2. Reassess when pt passes [employer] eval and able to have PO feedings Expected Outcomes/Goals: prevent wt loss, improve nutrition status Date of Service: Dec 13, 2024 Billing Provider: DON KHAN Cardiology Common Codes: [id number] HOSP CARE(High DON KHAN Dec 13, 2024 13:03
--- NOTE | 2024-12-13 15:48 | DVHPN2 ---
Subjective In bed non verbal Reviewed: H&P, Labs Changes from previous H/P or p: No Changes Respiratory: Shortness of breath Objective Vitals Vital Signs Date Time Temp Pulse Resp B/P (MAP) Pulse Ox O2 Delivery O2 Flow Rate FiO2 12/13/24 13:00 98.0 89 16 108/69 (82) 99 98.0 12/13/24 11:40 T-piece 6 28 Cool Aerosol 28 Intake/Output Intake and Output 12/13/24 07:00 Intake Total 0 ml Output Total 800 ml Balance -800 ml Intake Oral 0 ml Output Urine Total 800 ml # Bowel Movements 1 General Appearance: Other (non verbal) Neck: Other (trach in place) Lungs: Clear to auscultation Cardiovascular: Regular rate, Normal S1, Normal S2 Musculoskeletal: Other (contracted) Medications Current Medications Medications Dose Ordered Sig/Ata Route Start Time Stop Time Status Last Admin Dose Admin Sodium Chloride 1,000 ml @ 120 mls/hr Q8H20M IV 12/11/24 09:56 12/13/24 12:56 120 MLS/HR Acetaminophen/ Hydrocodone Bitart 1 tab Q4HP PRN PO 12/11/24 08:45 Ondansetron HCl 4 mg Q4HP PRN IV 12/11/24 08:45 Enoxaparin Sodium 40 mg DAILY SC 12/11/24 10:00 12/13/24 10:02 40 MG Nitroglycerin 0.4 mg Q5MINP PRN SL 12/11/24 08:45 Morphine Sulfate 2 mg Q30M PRN IV 12/11/24 08:45 Vancomycin HCl 0 ml @ 0 mls/hr UD IV 12/11/24 08:45 Ascorbic Acid 500 mg BID GT 12/11/24 10:00 12/13/24 10:03 500 MG Baclofen 20 mg Q6HR GT 12/11/24 12:00 12/13/24 12:56 20 MG Multivitamins 1 tab DAILY GT 12/11/24 10:00 12/13/24 10:02 1 TAB Polyethylene Glycol 17 gm DAILY PO 12/11/24 10:00 Lacosamide 150 mg BID GT 12/11/24 10:00 12/13/24 10:02 150 MG Levetiracetam 1,000 mg BID GT 12/11/24 10:00 12/13/24 10:02 1,000 MG Acetaminophen 650 mg Q6HP PRN [place] 12/11/24 09:45 Acetaminophen 650 mg Q6HP PRN PO 12/11/24 10:00 Cefepime HCl 50 ml @ 12.5 mls/hr Q8HR IV 12/11/24 22:00 12/13/24 15:03 12.5 MLS/HR Levalbuterol HCl 0.625 mg Q6HR NEB 12/12/24 00:00 12/13/24 11:40 0.625 MG Ipratropium [place] 0.5 mg Q6HR NEB 12/12/24 00:00 12/13/24 11:40 0.5 MG Vancomycin HCl 200 ml @ 200 mls/hr Q8H IV 12/12/24 10:00 12/13/24 10:01 200 MLS/HR Enteral Nutritional Formula 1,000 ml 60ML/HR GT 12/13/24 04:15 12/13/24 10:55 1,000 ML Laboratory Results Laboratory Tests 12/13/24 12:00 Chemistry Test 12/13/24 12:00 Calcium Level 8.2 mg/dL (8.7-10.4) L Urinalysis Test 12/11/24 06:00 Urine Color Yellow (Yellow) Urine Clarity Clear (Clear) Urine pH 5.0 (5.0-9.0) Urine Specific [place] 1.028 (1.001-1.035) Urine Protein Trace (Negative) H Urine Ketones Negative (Negative) Urine Blood 3+ /uL (Negative) H Urine Nitrite Negative (Negative) Urine Bilirubin Negative (Negative) Urine Urobilinogen Normal mg/dL (Negative) Urine Leukocyte Esterase Negative /uL (Negative) Urine RBC 48 /hpf (0 - 3) Urine Microscopic WBC < 1 /HPF (0-3) Urine Squamous Epithelial Cells None seen /hpf (<5) Urine Bacteria None seen /hpf (None Seen) Urine Granular Casts Few /lpf (0) Urine Mucus Few (None Seen) Urine Yeast (Budding) Occasional /hpf (None Urine Glucose Normal mg/dL (Normal) Microbiology Microbiology Date/Time Source Procedure Growth Status 12/11/24 23:10 Nose MRSA Screen - Final Complete 12/11/24 06:00 Voided Urine Urine Culture - Final Complete 12/11/24 02:57 Blood Blood Culture - Preliminary NO GROWTH AFTER 48 HOURS OF INCUBATION. Resulted Assessment/Plan Assessment/Plan Acute hypoxic respiratory failure Leukocytosis likely secondary to sepsis Chronic trach Nonverbal Chronic bed-bound G-tube A flutter on EKG now sinus tach upon examination Pyrexia likely due to sepsis Acute encephalopathy History of endocarditis History of TBI History of seizures Continue IV abx blood cx pending LEYDI aborted due to poor sedation monitor CBC daily Plan discussed with: Other (nruse) My Orders Orders - ESTEFANI BAXTER MD Procedure Category Date Status Time Basic Metabolic Panel LAB 12/14/24 Verified 05:00 Basic Metabolic Panel LAB 12/15/24 Verified 05:00 Basic Metabolic Panel LAB 12/16/24 Verified 05:00 Basic Metabolic Panel LAB 12/17/24 Verified 05:00 Basic Metabolic Panel LAB 12/18/24 Verified 05:00 Basic Metabolic Panel LAB 12/19/24 Verified 05:00 Basic Metabolic Panel LAB 12/20/24 Verified 05:00 Complete Blood Count LAB 12/14/24 Verified 05:00 Complete Blood Count LAB 12/15/24 Verified 05:00 Complete Blood Count LAB 12/16/24 Verified 05:00 Complete Blood Count LAB 12/17/24 Verified 05:00 Complete Blood Count LAB 12/18/24 Verified 05:00 Complete Blood Count LAB 12/19/24 Verified 05:00 Complete Blood Count LAB 12/20/24 Verified 05:00 Date of Service: Dec 13, 2024 Billing Provider: ESTEFANI BAXTER MD Common Visit Codes: [id number] INP/OBS CARE(HIGH) ESTEFANI BAXTER MD Dec 13, 2024 15:48
[2024-12-14] VITALS (20 sets, daily range): BP systolic 119–144; BP diastolic 53–71; PULSE 59–98; RESP 16–20; TEMP 97.5–99.1; O2SAT 91–99
[2024-12-14 07:02] LABS: Hematocrit 35.6 % (41.0-53.0); Hemoglobin 12.2 g/dL (13.5-17.5); Mean Corpuscular Hemoglobin 29.7 pg (28.0-32.0); Mean Corpuscular Volume 86.6 fL (80.0-100.0); Nucleated Red Blood Cells % 0.1 %
[2024-12-14 07:24] LABS: Potassium 3.5 mmol/L (3.5-5.1); Sodium 143 mmol/L (136-145)
[2024-12-14 07:25] LABS: Anion Gap 6 (5-15); Carbon Dioxide 27 mmol/L (20-31)
[2024-12-14 07:30] LABS: BUN/Creatinine Ratio 14.3 (10.0-20.0); Glucose 90 mg/dL (74-106)
[2024-12-14 07:35] LABS: Blood Urea Nitrogen 7 mg/dL (9-23); Calcium 8.2 mg/dL (8.7-10.4); Chloride 110 mmol/L (98-107)
--- NOTE | 2024-12-14 15:36 | DVHPN2 ---
Subjective In bed non verbal Reviewed: H&P, Labs Changes from previous H/P or p: No Changes Respiratory: Shortness of breath Objective Vitals Vital Signs Date Time Temp Pulse Resp B/P (MAP) Pulse Ox O2 Delivery O2 Flow Rate FiO2 12/14/24 12:43 97.5 70 20 124/64 (84) 98 97.5 12/14/24 11:26 Trach Collar 6 28 Cool Aerosol 28 Intake/Output Intake and Output 12/14/24 07:00 Intake Total 650 ml Output Total 1800 ml Balance -1150 ml Intake Oral 0 ml IV Total 650 ml Output Urine Total 1800 ml # Bowel Movements 2 General Appearance: Other (non verbal) Neck: Other (trach in place) Lungs: Clear to auscultation Cardiovascular: Regular rate, Normal S1, Normal S2 Musculoskeletal: Other (contracted) Medications Current Medications Medications Dose Ordered Sig/Ata Route Start Time Stop Time Status Last Admin Dose Admin Sodium Chloride 1,000 ml @ 120 mls/hr Q8H20M IV 12/11/24 09:56 12/14/24 05:43 120 MLS/HR Acetaminophen/ Hydrocodone Bitart 1 tab Q4HP PRN PO 12/11/24 08:45 Ondansetron HCl 4 mg Q4HP PRN IV 12/11/24 08:45 Enoxaparin Sodium 40 mg DAILY SC 12/11/24 10:00 12/14/24 09:24 40 MG Nitroglycerin 0.4 mg Q5MINP PRN SL 12/11/24 08:45 Morphine Sulfate 2 mg Q30M PRN IV 12/11/24 08:45 Vancomycin HCl 0 ml @ 0 mls/hr UD IV 12/11/24 08:45 Ascorbic Acid 500 mg BID GT 12/11/24 10:00 12/14/24 09:24 500 MG Baclofen 20 mg Q6HR GT 12/11/24 12:00 12/14/24 12:36 20 MG Multivitamins 1 tab DAILY GT 12/11/24 10:00 12/14/24 09:24 1 TAB Polyethylene Glycol 17 gm DAILY PO 12/11/24 10:00 12/14/24 09:23 17 GM Lacosamide 150 mg BID GT 12/11/24 10:00 12/14/24 09:24 150 MG Levetiracetam 1,000 mg BID GT 12/11/24 10:00 12/14/24 09:24 1,000 MG Acetaminophen 650 mg Q6HP PRN [place] 12/11/24 09:45 Acetaminophen 650 mg Q6HP PRN PO 12/11/24 10:00 Cefepime HCl 50 ml @ 12.5 mls/hr Q8HR IV 12/11/24 22:00 12/14/24 12:36 12.5 MLS/HR Levalbuterol HCl 0.625 mg Q6HR NEB 12/12/24 00:00 12/14/24 11:26 0.625 MG Ipratropium [place] 0.5 mg Q6HR NEB 12/12/24 00:00 12/14/24 11:26 0.5 MG Vancomycin HCl 200 ml @ 200 mls/hr Q8H IV 12/12/24 10:00 12/14/24 09:25 200 MLS/HR Enteral Nutritional Formula 1,000 ml 60ML/HR GT 12/13/24 04:15 12/14/24 05:46 1,000 ML Laboratory Results Laboratory Tests 12/14/24 04:58 Chemistry Test 12/14/24 04:58 Calcium Level 8.2 mg/dL (8.7-10.4) L Urinalysis Test 12/11/24 06:00 Urine Color Yellow (Yellow) Urine Clarity Clear (Clear) Urine pH 5.0 (5.0-9.0) Urine Specific [place] 1.028 (1.001-1.035) Urine Protein Trace (Negative) H Urine Ketones Negative (Negative) Urine Blood 3+ /uL (Negative) H Urine Nitrite Negative (Negative) Urine Bilirubin Negative (Negative) Urine Urobilinogen Normal mg/dL (Negative) Urine Leukocyte Esterase Negative /uL (Negative) Urine RBC 48 /hpf (0 - 3) Urine Microscopic WBC < 1 /HPF (0-3) Urine Squamous Epithelial Cells None seen /hpf (<5) Urine Bacteria None seen /hpf (None Seen) Urine Granular Casts Few /lpf (0) Urine Mucus Few (None Seen) Urine Yeast (Budding) Occasional /hpf (None Urine Glucose Normal mg/dL (Normal) Microbiology Microbiology Date/Time Source Procedure Growth Status 12/11/24 23:10 Nose MRSA Screen - Final Complete 12/11/24 06:00 Voided Urine Urine Culture - Final Complete 12/11/24 02:57 Blood Blood Culture - Preliminary NO GROWTH AFTER 72 HOURS OF INCUBATION. Resulted Assessment/Plan Assessment/Plan Acute hypoxic respiratory failure Leukocytosis likely secondary to sepsis Chronic trach Nonverbal Chronic bed-bound G-tube A flutter on EKG now sinus tach upon examination Pyrexia likely due to sepsis Acute encephalopathy History of endocarditis History of TBI History of seizures Continue IV abx blood cx pending LEYDI aborted due to poor sedation monitor CBC daily Plan discussed with: Other (nurse) Date of Service: Dec 14, 2024 Billing Provider: ESTEFANI BAXTER MD Common Visit Codes: [id number] INP/OBS CARE(HIGH) ESTEFANI BAXTER MD Dec 14, 2024 15:36
[2024-12-15] VITALS (14 sets, daily range): BP systolic 124–148; BP diastolic 70–83; PULSE 26–92; RESP 17–85; TEMP 97.4–98.2; O2SAT 94–99
[2024-12-15 02:54] LABS: Urine Protein, UAD Negative (Negative)
--- NOTE | 2024-12-15 05:29 | ECG ---
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
--- NOTE | 2024-12-15 08:07 | DVH ---
INDICATION: preop TECHNIQUE: Frontal view of the chest. COMPARISON: XY CHEST XRAY 1 VIEW on DOS: 12/11/24, XY CHEST PORTABLE on DOS: 11/29/24, XY CHEST XRAY 1 V IEW on DOS: 11/22/24, XY CHEST XRAY 1 VIEW on DOS: 11/21/24, XY CHEST XRAY 1 VIEW on DOS: 11/20/24 FINDINGS: Lines and Tubes: Midline tracheostomy. Ventriculoperitoneal shunt catheter traverses the right neck, hemithorax and abdomen. Lungs: Diminished lung volumes with concomitant exaggeration of the pulmonary vasculature. No evidenc e of focal consolidation. Pleura: No effusion. No pneumothorax. Cardiomediastinal contours: Unremarkable Bones: Unremarkable IMPRESSION: 1. Mild pulmonary edema. Diminished lung volumes. 2. Tracheostomy and ventriculoperitoneal catheter as above.
[2024-12-15 08:08] LABS: Anion Gap 8 (5-15); Carbon Dioxide 27 mmol/L (20-31); Chloride 107 mmol/L (98-107); Sodium 142 mmol/L (136-145)
[2024-12-15 08:09] LABS: Calcium 9.1 mg/dL (8.7-10.4)
[2024-12-15 08:12] LABS: Potassium 3.4 mmol/L (3.5-5.1)
[2024-12-15 08:14] LABS: BUN/Creatinine Ratio 11.9 (10.0-20.0); Glucose 81 mg/dL (74-106)
[2024-12-15 08:15] LABS: Blood Urea Nitrogen 5 mg/dL (9-23); Hematocrit 40.1 % (41.0-53.0); Hemoglobin 13.7 g/dL (13.5-17.5); Mean Corpuscular Hemoglobin 29.3 pg (28.0-32.0); Mean Corpuscular Volume 85.9 fL (80.0-100.0); Nucleated Red Blood Cells % 0.1 %
[2024-12-15 08:28] LABS: INR 0.97 (0.9-1.15); Partial Thromboplastin Time 29.1 SEC (24.5-34.5); Prothrombin Time 10.3 sec (9.3-11.8)
[2024-12-15] MEDS ORDERED: ONDANSETRON HCL 4 MG/2 ML VIAL ONE (12:22)
[2024-12-15] MEDS ORDERED: METOCLOPRAMIDE HCL 5MG/ml INJ 2ml VIAL ONE (12:22)
[2024-12-15] MEDS ORDERED: LIDOCAINE 1% INJ PF 5ML AMP ONE (12:22)
[2024-12-15] MEDS ORDERED: PROPOFOL 10 MG/ML 20 ML IV ONE ×3 (12:23→13:26)
[2024-12-15] MEDS ORDERED: LIDOCAINE VISCOUS 2% 15ML UD ONE (12:30)
--- NOTE | 2024-12-15 17:46 | DVHPN2 ---
Subjective In bed non verbal Reviewed: H&P, Labs Changes from previous H/P or p: No Changes Respiratory: Shortness of breath Objective Vitals Vital Signs Date Time Temp Pulse Resp B/P (MAP) Pulse Ox O2 Delivery O2 Flow Rate FiO2 12/15/24 17:00 98.2 82 17 133/78 (96) 96 98.2 12/15/24 13:36 Trach Collar 4.0 98 Intake/Output Intake and Output 12/15/24 07:00 Intake Total 650 ml Output Total 3650 ml Balance -3000 ml Intake Oral 0 ml IV Total 650 ml Output Urine Total 3650 ml General Appearance: Other (non verbal) Neck: Other (trach in place) Lungs: Clear to auscultation Cardiovascular: Regular rate, Normal S1, Normal S2 Musculoskeletal: Other (contracted) Medications Current Medications Medications Dose Ordered Sig/Ata Route Start Time Stop Time Status Last Admin Dose Admin Sodium Chloride 1,000 ml @ 120 mls/hr Q8H20M IV 12/11/24 09:56 12/14/24 05:43 120 MLS/HR Acetaminophen/ Hydrocodone Bitart 1 tab Q4HP PRN PO 12/11/24 08:45 Ondansetron HCl 4 mg Q4HP PRN IV 12/11/24 08:45 Enoxaparin Sodium 40 mg DAILY SC 12/11/24 10:00 12/15/24 10:11 40 MG Nitroglycerin 0.4 mg Q5MINP PRN SL 12/11/24 08:45 Morphine Sulfate 2 mg Q30M PRN IV 12/11/24 08:45 Vancomycin HCl 0 ml @ 0 mls/hr UD IV 12/11/24 08:45 Ascorbic Acid 500 mg BID GT 12/11/24 10:00 12/15/24 10:10 500 MG Baclofen 20 mg Q6HR GT 12/11/24 12:00 12/14/24 23:50 20 MG Multivitamins 1 tab DAILY GT 12/11/24 10:00 12/15/24 10:10 1 TAB Polyethylene Glycol 17 gm DAILY PO 12/11/24 10:00 12/15/24 10:11 17 GM Lacosamide 150 mg BID GT 12/11/24 10:00 12/15/24 10:10 150 MG Levetiracetam 1,000 mg BID GT 12/11/24 10:00 12/15/24 10:10 1,000 MG Acetaminophen 650 mg Q6HP PRN [place] 12/11/24 09:45 Acetaminophen 650 mg Q6HP PRN PO 12/11/24 10:00 Cefepime HCl 50 ml @ 12.5 mls/hr Q8HR IV 12/11/24 22:00 12/15/24 05:41 12.5 MLS/HR Levalbuterol HCl 0.625 mg Q6HR NEB 12/12/24 00:00 12/15/24 07:18 0.625 MG Ipratropium [place] 0.5 mg Q6HR NEB 12/12/24 00:00 12/15/24 07:18 0.5 MG Vancomycin HCl 200 ml @ 200 mls/hr Q8H IV 12/12/24 10:00 12/15/24 10:11 200 MLS/HR Enteral Nutritional Formula 1,000 ml 60ML/HR GT 12/13/24 04:15 12/14/24 05:46 1,000 ML Laboratory Results Laboratory Tests 12/15/24 06:25 Chemistry Test 12/15/24 06:25 Calcium Level 9.1 mg/dL (8.7-10.4) Coagulation Test 12/15/24 06:25 Prothrombin Time 10.3 sec (9.3-11.8) Prothrombin Time INR 0.97 (0.9-1.15) Activated Partial Thromboplast Time 29.1 SEC (24.5-34.5) Urinalysis Test 12/11/24 06:00 12/15/24 02:00 Urine Granular Casts Few /lpf (0) Urine Yeast (Budding) Occasional /hpf (None Urine Color Light-yellow (Yellow) Urine Clarity Clear (Clear) Urine pH 6.0 (5.0-9.0) Urine Specific [place] 1.010 (1.001-1.035) Urine Protein Negative (Negative) Urine Ketones Negative (Negative) Urine Blood 2+ /uL (Negative) H Urine Nitrite Negative (Negative) Urine Bilirubin Negative (Negative) Urine Urobilinogen Normal mg/dL (Negative) Urine Leukocyte Esterase Negative /uL (Negative) Urine RBC 49 /hpf (0 - 3) Urine Microscopic WBC 2 /HPF (0-3) Urine Squamous Epithelial Cells None seen /hpf (<5) Urine Bacteria None seen /hpf (None Seen) Urine Mucus Few (None Seen) Urine Glucose Normal mg/dL (Normal) Microbiology Microbiology Date/Time Source Procedure Growth Status 12/11/24 23:10 Nose MRSA Screen - Final Complete 12/11/24 06:00 Voided Urine Urine Culture - Final Complete 12/11/24 02:57 Blood Blood Culture - Preliminary NO GROWTH AFTER 72 HOURS OF INCUBATION. Resulted Assessment/Plan Assessment/Plan Acute hypoxic respiratory failure Leukocytosis likely secondary to sepsis Chronic trach Nonverbal Chronic bed-bound G-tube A flutter on EKG now sinus tach upon examination Pyrexia likely due to sepsis Acute encephalopathy History of endocarditis History of TBI History of seizures Continue IV abx blood cx pending LEYDI aborted due to poor sedation monitor CBC daily Plan discussed with: Other (nurse) Date of Service: Dec 15, 2024 Billing Provider: ESTEFANI BAXTER MD Common Visit Codes: [id number] INP/OBS CARE(HIGH) ESTEFANI BAXTER MD Dec 15, 2024 17:46
--- NOTE | 2024-12-15 18:48 | DVHOP2 ---
Operative Report - 2 Report Details Date: 12/15/24 Preop Diagnosis: Rule out endocarditis Postop Diagnosis: Transesophageal echocardiogram Surgeon: Melba Noriega MD Anesthesiologist: Deep sedation Anesthesia: Mac, Local Consent: The patient's was informed of the risks and benefits of the procedure. She consented to the procedure. These include but are not limited to complications of anesthesia, postoperative infection, incomplete relief of s ymptoms, recurrence of symptoms, damage to blood vessels, nerves and tendons, deep venous thrombosis, pulmonary embolism and possible need for repeat surgery in the future. Complications: No complications Findings: Mildly aneurysmal sinus of Valsalva. No significant anomalies noted Indications for Surgery: Persistent fevers Name of Procedure Performed Transesophageal echocardiogram , Procedure Details Procedure Details: Patient was taken to the operating room and under deep sedation the patient had passage of transesophageal probe. Standard views obtained. No complications. Transgastric views also obtained. Bubble study was not performed. Conclusions 1. Technically good study. The patient is in a sinus rhythm. Chamber dimensions appear to be within normal limits. Valves appear to be structurally normal. The aortic valve the site apparent to be the right coronary sinus appears to be mildly aneurysmal and dilated. No other significant anomalies present. No functional or other structural anomalies present. The mitral and tricuspid appear to be structurally normal. The aortic valve itself is without anomalies. The pulmonic valve is not clearly evaluated or seen. Left ventricular systolic performance appears preserved. EF is approximately 55% with normal RV function. Doppler reveals no significant anomalies. Mild TR. No intra-atrial or intraventricular septal defects. No other significant anomalies from a Doppler perspective were noted. No pericardial effusion masses or vegetations. The appendage appears to be within normal limits. There were no masses or evidence for subacute bacterial endocarditis. Condition Guarded Disposition Still a Patient Date of Service: Dec 15, 2024 Billing Provider: MELBA NORIEGA Sr., MD Cardiology Common Codes: [id number] INP/OBS CARE (High) Cardiology Procedure Codes: [id number] W/IMG DOC INCL PROB ACQ MELBA NORIEGA Sr., MD Dec 15, 2024 18:48
[2024-12-16] VITALS (17 sets, daily range): BP systolic 117–146; BP diastolic 58–83; PULSE 77–99; RESP 16–20; TEMP 96.4–99.1; O2SAT 94–100
[2024-12-16 07:24] LABS: Hematocrit 40.2 % (41.0-53.0); Hemoglobin 14.0 g/dL (13.5-17.5); Mean Corpuscular Hemoglobin 29.7 pg (28.0-32.0); Mean Corpuscular Volume 85.0 fL (80.0-100.0); Nucleated Red Blood Cells % 0.0 %
[2024-12-16 07:31] LABS: Anion Gap 11 (5-15); Carbon Dioxide 27 mmol/L (20-31); Chloride 105 mmol/L (98-107); Sodium 143 mmol/L (136-145)
[2024-12-16 07:33] LABS: Calcium 9.0 mg/dL (8.7-10.4)
[2024-12-16 07:38] LABS: BUN/Creatinine Ratio 14.9 (10.0-20.0); Blood Urea Nitrogen 7 mg/dL (9-23); Glucose 76 mg/dL (74-106); Potassium 3.4 mmol/L (3.5-5.1)
[2024-12-16] MEDS: VANCOMYCIN 1GM/200ML PM 200 ML IV SCH (09:36)
--- NOTE | 2024-12-16 16:14 | DVHPN2 ---
Subjective In bed non verbal Reviewed: H&P, Labs Changes from previous H/P or p: No Changes Respiratory: Shortness of breath Objective Vitals Vital Signs Date Time Temp Pulse Resp B/P (MAP) Pulse Ox O2 Delivery O2 Flow Rate FiO2 12/16/24 13:47 98.4 77 16 118/59 (78) 98 98.4 12/16/24 10:00 Trach Collar 5 N/A Intake/Output Intake and Output 12/16/24 07:00 Intake Total 1550 ml Output Total 3250 ml Balance -1700 ml Intake Oral 0 ml IV Total 1550 ml Output Urine Total 3250 ml General Appearance: Other (non verbal) Neck: Other (trach in place) Lungs: Clear to auscultation Cardiovascular: Regular rate, Normal S1, Normal S2 Musculoskeletal: Other (contracted) Medications Current Medications Medications Dose Ordered Sig/Ata Route Start Time Stop Time Status Last Admin Dose Admin Sodium Chloride 1,000 ml @ 120 mls/hr Q8H20M IV 12/11/24 09:56 12/16/24 06:04 120 MLS/HR Acetaminophen/ Hydrocodone Bitart 1 tab Q4HP PRN PO 12/11/24 08:45 Ondansetron HCl 4 mg Q4HP PRN IV 12/11/24 08:45 Enoxaparin Sodium 40 mg DAILY SC 12/11/24 10:00 12/16/24 09:33 40 MG Nitroglycerin 0.4 mg Q5MINP PRN SL 12/11/24 08:45 Morphine Sulfate 2 mg Q30M PRN IV 12/11/24 08:45 Vancomycin HCl 0 ml @ 0 mls/hr UD IV 12/11/24 08:45 Ascorbic Acid 500 mg BID GT 12/11/24 10:00 12/16/24 09:33 500 MG Baclofen 20 mg Q6HR GT 12/11/24 12:00 12/16/24 11:17 20 MG Multivitamins 1 tab DAILY GT 12/11/24 10:00 12/16/24 09:33 1 TAB Polyethylene Glycol 17 gm DAILY PO 12/11/24 10:00 12/16/24 09:34 17 GM Lacosamide 150 mg BID GT 12/11/24 10:00 12/16/24 09:33 150 MG Levetiracetam 1,000 mg BID GT 12/11/24 10:00 12/16/24 09:33 1,000 MG Acetaminophen 650 mg Q6HP PRN [place] 12/11/24 09:45 Acetaminophen 650 mg Q6HP PRN PO 12/11/24 10:00 Cefepime HCl 50 ml @ 12.5 mls/hr Q8HR IV 12/11/24 22:00 12/16/24 11:14 12.5 MLS/HR Levalbuterol HCl 0.625 mg Q6HR NEB 12/12/24 00:00 12/16/24 11:13 0.625 MG Ipratropium [place] 0.5 mg Q6HR NEB 12/12/24 00:00 12/16/24 11:13 0.5 MG Enteral Nutritional Formula 1,000 ml 60ML/HR GT 12/13/24 04:15 12/15/24 22:45 1,000 ML Vancomycin HCl 200 ml @ 200 mls/hr Q8H IV 12/16/24 10:00 12/16/24 09:36 200 MLS/HR Laboratory Results Laboratory Tests 12/16/24 05:31 Chemistry Test 12/16/24 05:31 Calcium Level 9.0 mg/dL (8.7-10.4) Urinalysis Test 12/11/24 06:00 12/15/24 02:00 Urine Granular Casts Few /lpf (0) Urine Yeast (Budding) Occasional /hpf (None Urine Color Light-yellow (Yellow) Urine Clarity Clear (Clear) Urine pH 6.0 (5.0-9.0) Urine Specific [place] 1.010 (1.001-1.035) Urine Protein Negative (Negative) Urine Ketones Negative (Negative) Urine Blood 2+ /uL (Negative) H Urine Nitrite Negative (Negative) Urine Bilirubin Negative (Negative) Urine Urobilinogen Normal mg/dL (Negative) Urine Leukocyte Esterase Negative /uL (Negative) Urine RBC 49 /hpf (0 - 3) Urine Microscopic WBC 2 /HPF (0-3) Urine Squamous Epithelial Cells None seen /hpf (<5) Urine Bacteria None seen /hpf (None Seen) Urine Mucus Few (None Seen) Urine Glucose Normal mg/dL (Normal) Microbiology Microbiology Date/Time Source Procedure Growth Status 12/11/24 23:10 Nose MRSA Screen - Final Complete 12/11/24 06:00 Voided Urine Urine Culture - Final Complete 12/11/24 02:57 Blood Blood Culture - Final NO GROWTH AFTER 5 DAYS OF INCUBATION. Complete Assessment/Plan Assessment/Plan Acute hypoxic respiratory failure Leukocytosis likely secondary to sepsis Chronic trach Nonverbal Chronic bed-bound G-tube A flutter on EKG now sinus tach upon examination Pyrexia likely due to sepsis Acute encephalopathy History of endocarditis History of TBI History of seizures Continue IV abx blood cx pending LEYDI negative with no endocarditis monitor CBC daily Plan discussed with: Other (nurse) Date of Service: Dec 16, 2024 Billing Provider: ESTEFANI BAXTER MD Common Visit Codes: [id number] INP/OBS CARE(HIGH) ESTEFANI BAXTER MD Dec 16, 2024 16:14
[2024-12-17] VITALS (18 sets, daily range): BP systolic 113–134; BP diastolic 47–76; PULSE 64–88; RESP 16–18; TEMP 96.9–98.9; O2SAT 93–100
[2024-12-17 07:02] LABS: Hematocrit 38.5 % (41.0-53.0); Hemoglobin 13.1 g/dL (13.5-17.5); Mean Corpuscular Hemoglobin 29.4 pg (28.0-32.0); Mean Corpuscular Volume 86.5 fL (80.0-100.0); Nucleated Red Blood Cells % 0.1 %
[2024-12-17 07:17] LABS: Sodium 142 mmol/L (136-145)
[2024-12-17 07:18] LABS: Anion Gap 9 (5-15); Carbon Dioxide 26 mmol/L (20-31)
[2024-12-17 07:23] LABS: BUN/Creatinine Ratio 17.0 (10.0-20.0)
[2024-12-17 07:27] LABS: Blood Urea Nitrogen 8 mg/dL (9-23); Calcium 8.6 mg/dL (8.7-10.4); Chloride 107 mmol/L (98-107); Glucose 112 mg/dL (74-106); Potassium 3.4 mmol/L (3.5-5.1)
--- NOTE | 2024-12-17 12:20 | DVHPN2 ---
Subjective In bed non verbal Reviewed: H&P, Labs Changes from previous H/P or p: No Changes Respiratory: Shortness of breath Objective Vitals Vital Signs Date Time Temp Pulse Resp B/P (MAP) Pulse Ox O2 Delivery O2 Flow Rate FiO2 12/17/24 11:20 71 18 99 12/17/24 11:14 T-piece 6.0 12/17/24 11:14 28 28 12/17/24 08:38 98.9 115/47 (69) 98.9 Intake/Output Intake and Output 12/17/24 07:00 Intake Total 2180 ml Output Total 2075 ml Balance 105 ml Intake Oral 0 ml IV Total 2180 ml Output Urine Total 2075 ml General Appearance: Other (non verbal) Neck: Other (trach in place) Lungs: Clear to auscultation Cardiovascular: Regular rate, Normal S1, Normal S2 Musculoskeletal: Other (contracted) Medications Current Medications Medications Dose Ordered Sig/Ata Route Start Time Stop Time Status Last Admin Dose Admin Sodium Chloride 1,000 ml @ 120 mls/hr Q8H20M IV 12/11/24 09:56 12/17/24 11:10 120 MLS/HR Acetaminophen/ Hydrocodone Bitart 1 tab Q4HP PRN PO 12/11/24 08:45 Ondansetron HCl 4 mg Q4HP PRN IV 12/11/24 08:45 Enoxaparin Sodium 40 mg DAILY SC 12/11/24 10:00 12/17/24 11:03 40 MG Nitroglycerin 0.4 mg Q5MINP PRN SL 12/11/24 08:45 Morphine Sulfate 2 mg Q30M PRN IV 12/11/24 08:45 Vancomycin HCl 0 ml @ 0 mls/hr UD IV 12/11/24 08:45 Ascorbic Acid 500 mg BID GT 12/11/24 10:00 12/17/24 11:03 500 MG Baclofen 20 mg Q6HR GT 12/11/24 12:00 12/17/24 05:16 20 MG Multivitamins 1 tab DAILY GT 12/11/24 10:00 12/17/24 11:03 1 TAB Polyethylene Glycol 17 gm DAILY PO 12/11/24 10:00 12/17/24 11:03 17 GM Lacosamide 150 mg BID GT 12/11/24 10:00 12/17/24 11:03 150 MG Levetiracetam 1,000 mg BID GT 12/11/24 10:00 12/17/24 11:03 1,000 MG Acetaminophen 650 mg Q6HP PRN [place] 12/11/24 09:45 Acetaminophen 650 mg Q6HP PRN PO 12/11/24 10:00 Cefepime HCl 50 ml @ 12.5 mls/hr Q8HR IV 12/11/24 22:00 12/17/24 05:16 12.5 MLS/HR Levalbuterol HCl 0.625 mg Q6HR NEB 12/12/24 00:00 12/17/24 11:14 0.625 MG Ipratropium [place] 0.5 mg Q6HR NEB 12/12/24 00:00 12/17/24 11:14 0.5 MG Enteral Nutritional Formula 1,000 ml 60ML/HR GT 12/13/24 04:15 12/16/24 19:21 1,000 ML Vancomycin HCl 200 ml @ 200 mls/hr Q8H IV 12/16/24 10:00 12/17/24 10:55 200 MLS/HR Laboratory Results Laboratory Tests 12/17/24 04:17 Chemistry Test 12/17/24 04:17 Calcium Level 8.6 mg/dL (8.7-10.4) L Urinalysis Test 12/11/24 06:00 12/15/24 02:00 Urine Granular Casts Few /lpf (0) Urine Yeast (Budding) Occasional /hpf (None Urine Color Light-yellow (Yellow) Urine Clarity Clear (Clear) Urine pH 6.0 (5.0-9.0) Urine Specific [place] 1.010 (1.001-1.035) Urine Protein Negative (Negative) Urine Ketones Negative (Negative) Urine Blood 2+ /uL (Negative) H Urine Nitrite Negative (Negative) Urine Bilirubin Negative (Negative) Urine Urobilinogen Normal mg/dL (Negative) Urine Leukocyte Esterase Negative /uL (Negative) Urine RBC 49 /hpf (0 - 3) Urine Microscopic WBC 2 /HPF (0-3) Urine Squamous Epithelial Cells None seen /hpf (<5) Urine Bacteria None seen /hpf (None Seen) Urine Mucus Few (None Seen) Urine Glucose Normal mg/dL (Normal) Microbiology Microbiology Date/Time Source Procedure Growth Status 12/11/24 23:10 Nose MRSA Screen - Final Complete 12/11/24 06:00 Voided Urine Urine Culture - Final Complete 12/11/24 02:57 Blood Blood Culture - Final NO GROWTH AFTER 5 DAYS OF INCUBATION. Complete Assessment/Plan Assessment/Plan Acute hypoxic respiratory failure Leukocytosis likely secondary to sepsis Chronic trach Nonverbal Chronic bed-bound G-tube A flutter on EKG now sinus tach upon examination Pyrexia likely due to sepsis Acute encephalopathy History of endocarditis History of TBI History of seizures Continue IV abx blood cx pending LEYDI negative with no endocarditis monitor CBC daily Plan discussed with: Patient Date of Service: Dec 17, 2024 Billing Provider: ESTEFANI BAXTER MD Common Visit Codes: [id number] INP/OBS CARE(HIGH) ESTEFANI BAXTER MD Dec 17, 2024 12:20
[2024-12-18] VITALS (18 sets, daily range): BP systolic 109–132; BP diastolic 64–77; PULSE 57–97; RESP 16–18; TEMP 97.3–98.9; O2SAT 96–99
--- NOTE | 2024-12-18 04:55 | DVH ---
Exam: CT CHST AB PEL WO CON-NO IV/ORAL History: occult infection Comparison Study: None Technique: Multidetector spiral CT of the chest, abdomen and pelvis was performed from lower neck to pubic symphysis Axial, coronal and sagittal multiplanar reformats were performed by the technologist on a separate workstation. Radiation Dose : 1. Chest/Abdomen/Pelvis: CTDIvol 16.96 mGy, DLP 1288.81 mGy*cm. Findings: Lower neck: Normal thyroid. Lungs: Trace bilateral pleural effusions with adjacent atelectasis. Diffuse bilateral ground-glass o pacity without evidence of focal consolidation or dominant pulmonary nodule. No evidence of pneumotho rax. Tracheostomy. Heart/Vascular Structures: Cardiomegaly. Trace pericardial effusion. Lymph Nodes: No adenopathy Liver: The liver is normal in size. No focal lesions. Normal hepatic parenchymal attenuation. Gallbladder and Biliary Tree: Cholelithiasis. Spleen: Unremarkable Pancreas: The pancreas is normal in appearance without focal lesions. Adrenal Glands: Unremarkable Kidneys: Calcification noted at the right ureteropelvic junction. Kidneys demonstrate normal symmetri c parenchymal attenuation without focal lesions or hydronephrosis. Bladder: Unremarkable. El catheter. Bowel: The stomach is grossly normal in appearance. Percutaneous gastrostomy. Small bowel and colon a re normal in caliber and distribution. The appendix is normal. Ascites: Small volume pelvic ascites. Lymphadenopathy: No mesenteric, retroperitoneal or periportal lymphadenopathy. Abdominal Wall and Mesentery: Unremarkable. Ventriculoperitoneal catheter terminates within the right paracolic gutter. Vasculature: The visualized abdominal aorta is normal in size and caliber. Pelvic Organs: Unremarkable Musculoskeletal: No aggressive focal bony lesions, acute fractures or dislocation. IMPRESSION: 1. Trace bilateral pleural effusions, bibasilar atelectasis and diffuse bilateral ground-glass opacit y. 2. Cardiomegaly and trace pericardial effusion. 3. Cholelithiasis. 4. Nonobstructive right nephrolithiasis. 5. Percutaneous gastrostomy. 6. Ventriculoperitoneal shunt. 7. Tracheostomy. 8. Small volume pelvic ascites. 9. El catheter.
[2024-12-18 08:13] LABS: Hematocrit 40.6 % (41.0-53.0); Hemoglobin 13.9 g/dL (13.5-17.5); Mean Corpuscular Hemoglobin 29.7 pg (28.0-32.0); Mean Corpuscular Volume 86.9 fL (80.0-100.0); Nucleated Red Blood Cells % 0.1 %
[2024-12-18 08:22] LABS: Chloride 107 mmol/L (98-107); Potassium 3.6 mmol/L (3.5-5.1); Sodium 142 mmol/L (136-145)
[2024-12-18 08:23] LABS: Anion Gap 8 (5-15); Calcium 8.9 mg/dL (8.7-10.4); Carbon Dioxide 27 mmol/L (20-31)
[2024-12-18 08:28] LABS: BUN/Creatinine Ratio 13.6 (10.0-20.0); Blood Urea Nitrogen 6 mg/dL (9-23); Glucose 90 mg/dL (74-106)
[2024-12-18] MEDS: VANCOMYCIN 1GM/200ML PM 200 ML IV SCH (12:38)
--- NOTE | 2024-12-18 19:55 | DVHPN2 ---
Subjective In bed non verbal Reviewed: H&P, Labs Changes from previous H/P or p: No Changes Respiratory: Shortness of breath Objective Vitals Vital Signs Date Time Temp Pulse Resp B/P (MAP) Pulse Ox O2 Delivery O2 Flow Rate FiO2 12/18/24 18:50 75 18 98 12/18/24 18:40 T-piece 6 28 Cool Aerosol 28 12/18/24 17:00 98.7 132/68 (89) 98.7 Intake/Output Intake and Output 12/18/24 07:00 Intake Total 1949 ml Output Total 2850 ml Balance -901 ml Intake Oral 0 ml IV Total 1270 ml Tube Feeding 679 ml Output Urine Total 2850 ml # Bowel Movements 1 General Appearance: Other (non verbal) Neck: Other (trach in place) Lungs: Clear to auscultation Cardiovascular: Regular rate, Normal S1, Normal S2 Musculoskeletal: Other (contracted) Medications Current Medications Medications Dose Ordered Sig/Ata Route Start Time Stop Time Status Last Admin Dose Admin Sodium Chloride 1,000 ml @ 120 mls/hr Q8H20M IV 12/11/24 09:56 12/18/24 12:38 120 MLS/HR Acetaminophen/ Hydrocodone Bitart 1 tab Q4HP PRN PO 12/11/24 08:45 Ondansetron HCl 4 mg Q4HP PRN IV 12/11/24 08:45 Enoxaparin Sodium 40 mg DAILY SC 12/11/24 10:00 12/18/24 09:02 40 MG Nitroglycerin 0.4 mg Q5MINP PRN SL 12/11/24 08:45 Morphine Sulfate 2 mg Q30M PRN IV 12/11/24 08:45 Vancomycin HCl 0 ml @ 0 mls/hr UD IV 12/11/24 08:45 Ascorbic Acid 500 mg BID GT 12/11/24 10:00 12/18/24 09:07 500 MG Baclofen 20 mg Q6HR GT 12/11/24 12:00 12/18/24 17:46 20 MG Multivitamins 1 tab DAILY GT 12/11/24 10:00 12/18/24 09:06 1 TAB Polyethylene Glycol 17 gm DAILY PO 12/11/24 10:00 12/18/24 09:06 17 GM Lacosamide 150 mg BID GT 12/11/24 10:00 12/18/24 09:06 150 MG Levetiracetam 1,000 mg BID GT 12/11/24 10:00 12/18/24 09:02 1,000 MG Acetaminophen 650 mg Q6HP PRN [place] 12/11/24 09:45 Acetaminophen 650 mg Q6HP PRN PO 12/11/24 10:00 Cefepime HCl 50 ml @ 12.5 mls/hr Q8HR IV 12/11/24 22:00 12/18/24 14:18 12.5 MLS/HR Levalbuterol HCl 0.625 mg Q6HR NEB 12/12/24 00:00 12/18/24 18:40 0.625 MG Ipratropium [place] 0.5 mg Q6HR NEB 12/12/24 00:00 12/18/24 18:40 0.5 MG Enteral Nutritional Formula 1,000 ml 60ML/HR GT 12/13/24 04:15 12/16/24 19:21 1,000 ML Vancomycin HCl 200 ml @ 200 mls/hr Q10H IV 12/18/24 13:00 12/18/24 12:38 200 MLS/HR Laboratory Results Laboratory Tests 12/18/24 06:30 Chemistry Test 12/18/24 06:30 Calcium Level 8.9 mg/dL (8.7-10.4) Urinalysis Test 12/11/24 06:00 12/15/24 02:00 Urine Granular Casts Few /lpf (0) Urine Yeast (Budding) Occasional /hpf (None Urine Color Light-yellow (Yellow) Urine Clarity Clear (Clear) Urine pH 6.0 (5.0-9.0) Urine Specific [place] 1.010 (1.001-1.035) Urine Protein Negative (Negative) Urine Ketones Negative (Negative) Urine Blood 2+ /uL (Negative) H Urine Nitrite Negative (Negative) Urine Bilirubin Negative (Negative) Urine Urobilinogen Normal mg/dL (Negative) Urine Leukocyte Esterase Negative /uL (Negative) Urine RBC 49 /hpf (0 - 3) Urine Microscopic WBC 2 /HPF (0-3) Urine Squamous Epithelial Cells None seen /hpf (<5) Urine Bacteria None seen /hpf (None Seen) Urine Mucus Few (None Seen) Urine Glucose Normal mg/dL (Normal) Microbiology Microbiology Date/Time Source Procedure Growth Status 12/11/24 23:10 Nose MRSA Screen - Final Complete 7/17/25 06:00 Voided Urine Urine Culture - Final Complete 12/11/24 02:57 Blood Blood Culture - Final NO GROWTH AFTER 5 DAYS OF INCUBATION. Complete Assessment/Plan Assessment/Plan Acute hypoxic respiratory failure Leukocytosis likely secondary to sepsis Chronic trach Nonverbal Chronic bed-bound G-tube A flutter on EKG now sinus tach upon examination Pyrexia likely due to sepsis Acute encephalopathy History of endocarditis History of TBI History of seizures Continue IV abx blood cxx negative LEYDI negative with no endocarditis monitor CBC daily had long discussion with patients mother over the phone spent more than 15 minutes She is very adamant and insisting that "we need to find the source of infection" I explained so far all cultures has been negative and continues to insist. I ordered CT chest and abdomen yesterday and reviewed with her. She is also very insisting to continue vancomycin because she thinks he has endocarditis and this is how he presented last time he had endocarditis. I continued to reassure her. Plan discussed with: Patient My Orders Orders - ESTEFANI BAXTER MD Procedure Category Date Status Time * Wound Consult CONS 12/18/24 Transmitted Date of Service: Dec 18, 2024 Billing Provider: ESTEFANI BAXTER MD Common Visit Codes: [id number] INP/OBS CARE(HIGH) ESTEFANI BAXTER MD Dec 18, 2024 19:55
[2024-12-19] VITALS (17 sets, daily range): BP systolic 115–150; BP diastolic 46–76; PULSE 65–91; RESP 16–28; TEMP 97.9–98.9; O2SAT 95–100
[2024-12-19] MEDS: VANCOMYCIN 1GM/200ML PM 200 ML IV SCH (02:01)
[2024-12-19 07:12] LABS: Hematocrit 40.5 % (41.0-53.0); Hemoglobin 14.4 g/dL (13.5-17.5); Mean Corpuscular Hemoglobin 30.3 pg (28.0-32.0); Mean Corpuscular Volume 85.2 fL (80.0-100.0); Nucleated Red Blood Cells % 0.1 %
[2024-12-19 07:22] LABS: Calcium 9.0 mg/dL (8.7-10.4); Chloride 106 mmol/L (98-107); Potassium 3.7 mmol/L (3.5-5.1); Sodium 141 mmol/L (136-145)
[2024-12-19 07:23] LABS: Anion Gap 7 (5-15); Carbon Dioxide 28 mmol/L (20-31)
[2024-12-19 07:28] LABS: BUN/Creatinine Ratio 14.0 (10.0-20.0); Glucose 95 mg/dL (74-106)
[2024-12-19 07:31] LABS: Blood Urea Nitrogen 7 mg/dL (9-23)
--- NOTE | 2024-12-19 16:23 | DVHPN2 ---
Subjective In bed non verbal Reviewed: H&P, Labs Changes from previous H/P or p: No Changes Respiratory: Shortness of breath Objective Vitals Vital Signs Date Time Temp Pulse Resp B/P (MAP) Pulse Ox O2 Delivery O2 Flow Rate FiO2 12/19/24 13:01 98.9 67 24 115/58 (77) 99 98.9 12/19/24 11:57 T-piece 6.0 12/19/24 11:57 28 28 Intake/Output Intake and Output 12/19/24 07:00 Intake Total 1550 ml Output Total 3450 ml Balance -1900 ml Intake Oral 0 ml IV Total 1550 ml Output Urine Total 3450 ml # Bowel Movements 2 General Appearance: Other (non verbal) Neck: Other (trach in place) Lungs: Clear to auscultation Cardiovascular: Regular rate, Normal S1, Normal S2 Musculoskeletal: Other (contracted) Medications Current Medications Medications Dose Ordered Sig/Ata Route Start Time Stop Time Status Last Admin Dose Admin Sodium Chloride 1,000 ml @ 120 mls/hr Q8H20M IV 12/11/24 09:56 12/19/24 09:46 120 MLS/HR Acetaminophen/ Hydrocodone Bitart 1 tab Q4HP PRN PO 12/11/24 08:45 Ondansetron HCl 4 mg Q4HP PRN IV 12/11/24 08:45 Enoxaparin Sodium 40 mg DAILY SC 12/11/24 10:00 12/19/24 09:03 40 MG Nitroglycerin 0.4 mg Q5MINP PRN SL 12/11/24 08:45 Morphine Sulfate 2 mg Q30M PRN IV 12/11/24 08:45 Vancomycin HCl 0 ml @ 0 mls/hr UD IV 12/11/24 08:45 Ascorbic Acid 500 mg BID GT 12/11/24 10:00 12/19/24 09:02 500 MG Baclofen 20 mg Q6HR GT 12/11/24 12:00 12/19/24 11:22 20 MG Multivitamins 1 tab DAILY GT 12/11/24 10:00 12/19/24 09:03 1 TAB Polyethylene Glycol 17 gm DAILY PO 12/11/24 10:00 12/19/24 09:06 17 GM Lacosamide 150 mg BID GT 12/11/24 10:00 12/19/24 09:03 150 MG Levetiracetam 1,000 mg BID GT 12/11/24 10:00 12/19/24 09:03 1,000 MG Acetaminophen 650 mg Q6HP PRN [place] 12/11/24 09:45 Acetaminophen 650 mg Q6HP PRN PO 12/11/24 10:00 Cefepime HCl 50 ml @ 12.5 mls/hr Q8HR IV 12/11/24 22:00 12/19/24 14:00 12.5 MLS/HR Levalbuterol HCl 0.625 mg Q6HR NEB 12/12/24 00:00 12/19/24 11:57 0.625 MG Ipratropium [place] 0.5 mg Q6HR NEB 12/12/24 00:00 12/19/24 11:57 0.5 MG Enteral Nutritional Formula 1,000 ml 60ML/HR GT 12/13/24 04:15 12/17/24 17:00 1,000 ML Vancomycin HCl 200 ml @ 200 mls/hr Q10H IV 12/19/24 02:00 12/19/24 11:31 200 MLS/HR Laboratory Results Laboratory Tests 12/19/24 06:28 Chemistry Test 12/19/24 06:28 Calcium Level 9.0 mg/dL (8.7-10.4) Urinalysis Test 12/11/24 06:00 12/15/24 02:00 Urine Granular Casts Few /lpf (0) Urine Yeast (Budding) Occasional /hpf (None Urine Color Light-yellow (Yellow) Urine Clarity Clear (Clear) Urine pH 6.0 (5.0-9.0) Urine Specific [place] 1.010 (1.001-1.035) Urine Protein Negative (Negative) Urine Ketones Negative (Negative) Urine Blood 2+ /uL (Negative) H Urine Nitrite Negative (Negative) Urine Bilirubin Negative (Negative) Urine Urobilinogen Normal mg/dL (Negative) Urine Leukocyte Esterase Negative /uL (Negative) Urine RBC 49 /hpf (0 - 3) Urine Microscopic WBC 2 /HPF (0-3) Urine Squamous Epithelial Cells None seen /hpf (<5) Urine Bacteria None seen /hpf (None Seen) Urine Mucus Few (None Seen) Urine Glucose Normal mg/dL (Normal) Microbiology Microbiology Date/Time Source Procedure Growth Status 12/11/24 23:10 Nose MRSA Screen - Final Complete 12/11/24 06:00 Voided Urine Urine Culture - Final Complete 12/11/24 02:57 Blood Blood Culture - Final NO GROWTH AFTER 5 DAYS OF INCUBATION. Complete Assessment/Plan Assessment/Plan Acute hypoxic respiratory failure Leukocytosis likely secondary to sepsis Chronic trach Nonverbal Chronic bed-bound G-tube A flutter on EKG now sinus tach upon examination Pyrexia likely due to sepsis Acute encephalopathy History of endocarditis History of TBI History of seizures Continue IV abx blood cxx negative LEYDI negative with no endocarditis monitor CBC daily had long discussion with patients mother over the phone spent more than 15 minutes She is very adamant and insisting that "we need to find the source of infection" I explained so far all cultures has been negative and continues to insist. I ordered CT chest and abdomen and reviewed with her. She is also very insisting to continue vancomycin because she thinks he has endocarditis and this is how he presented last time he had endocarditis. I continued to reassure her. She wants ID and pulmonary consult Plan discussed with: Other (mother) My Orders Orders - ESTEFANI BAXTER MD Procedure Category Date Status Time * Wound Consult CONS 12/18/24 Transmitted *Consult CONS 12/18/24 Transmitted / 20:08 * Infectious Viv- CONS 12/18/24 Transmitted Carolyn Velasco 20:08 Date of Service: Dec 19, 2024 Billing Provider: ESTEFANI BAXTER MD Common Visit Codes: [id number] INP/OBS CARE(HIGH) Secondary Visit Codes: [id number] CARE PLAN 30 MINUTES ESTEFANI BAXTER MD Dec 19, 2024 16:23
--- NOTE | 2024-12-19 22:19 | DVHINCON2 ---
Date of service: Dec 19, 2024 Referring Physician Shravan Kothari MD [facility] [place] Reason for Consultation Chronic hypoxic respiratory failure, s/p tracheostomy, pleural effusion, GGO on imaging. History of Present Illness A 49-year-old man with past medical history of infective endocarditis, seizures, TBI, chronic tracheostomy, quadriplegia, nonverbal at baseline and chronically bed-bound, who presented to the ED on 12/11/24 with c/o shortness of breath. Per mom, pt had prior admission here on 11/28/24 and readmission on 12/09/24 and was tr eated for pneumonia, sepsis and ESBL Pseudomonas. Patient has had multiple admissions for the same problems. Patient was admitted for further care, and pulmonary consultation is requested for evaluation and management of chronic hypoxic respiratory failure, s/p tracheostomy, pleural effusion, and GGO on imaging. Review of Systems: 14-point review of systems negative unless otherwise noted above. Past Medical History: Infective endocarditis in 2013, brain aneurysm, traumatic brain injury, seizure, quadriplegia; bed-bound status, nonverbal at baseline Past Surgical History: Ventriculoperitoneal shunt, tracheostomy, gastrostomy Medications: Reviewed. Allergies: Piperacillin Tazobactam. Family History: No family history of premature CAD. No family history of lung disorders. Social History: Nonsmoker. No alcohol or illicit drug use. Allergies: Coded Allergies: Piperacillin (Verified Adverse Reaction, Intermediate, URTICARIA, 12/11/24) Tazobactam (Verified Adverse Reaction, Intermediate, URTICARIA, 12/11/24) Home Meds Active Scripts Fluconazole (Fluconazole) 200 Mg Tab, 1 TAB PO DAILY for 3 Days, #3 TAB Prov:FLAKO WOODSON RESIDENT 12/09/24 Fluconazole (Fluconazole) 200 Mg Tab, 1 TAB PO DAILY for 3 Days, #3 TAB Prov:FLAKO WOODSON RESIDENT 12/09/24 Reported Medications Levetiracetam (Keppra) 1,000 Mg Tab, 10 LIQ PO BID, #60 TAB 5 Refills 11/14/24 Amino Acids-Protein Hydrolysat (PRO-STAT) Liq, 30 ML OR DAILY, LIQ 11/14/24 Zinc Sulfate (Zinc Sulfate) 220 Mg Cap, 50 MG GT DAILY for 30 Days, MG 11/14/24 Potassium Chloride (POTASSIUM CHLORIDE CR) 10 Meq Tb, 20 MEQ GT DAILY, TAB 11/14/24 Multiple Vitamin (Multivitamins) Tab, 1 TAB GT DAILY, #30 TAB 2 Refills 11/14/24 Lorazepam (ATIVAN TABLET) 0.5 Mg Tb, 0.5 MG GT Q6HPRN PRN for SHORTNESS OF BREATH, TAB 11/14/24 Levalbuterol HCl (Levalbuterol) 1.25 Mg/0.5 Ml Neb, 1.25 MG IN Q4HP PRN for WHEEZING, INH 11/14/24 Lacosamide (Lacosamide) 150 Mg Tab, 150 MG GT BID, TAB 11/14/24 Loratadine (Claritin) 10 Mg Tab, 1 TAB PO DAILY for ALLERGIES, #30 TAB 5 Refills 11/14/24 Ipratropium-Albuterol (Ipratropium [place]/Albut) 1 Trace Trace, 1 TRACE IN Q6HPRN PRN for respiratory failure, ML 11/14/24 Glycopyrrolate (CUVPOSA) 1 Mg/5 Ml Trace, 1 MG PO Q8HPRN PRN for increased secretions, ML 11/14/24 Polyethylene Glycol 3350 (Miralax) 17 Gm Pow, 17 GM PO 3XW, POW 11/14/24 Chlorhexidine Gluconate (Mouth (CHLORHEXIDINE ORAL RINSE) 473 Ml So, 15 ML MT Q12HR, ML 11/14/24 Acetylcysteine (Acetylcysteine) 20 % Trace, 1 ML IN Q4HP PRN for thick secretions, ML 11/14/24 Diphenhydramine Hcl (Benadryl Allergy) 25 Mg Cap, 25 MG PO Q8HPRN PRN for allergies, CAP 11/14/24 Ascorbic Acid (VITAMIN C TABLET) 500 Mg Tb, 1 TAB GT BID, #60 TAB 11/14/24 Baclofen (Baclofen) 10 Mg Tab, 20 MG GT Q6HR for 30 Days, MG 11/14/24 Current Medications Current Medications Medications (Trade) Dose Ordered Sig/Ata Route PRN Reason Start Time Stop Time Status Last Admin Vancomycin HCl 200 ml @ 200 mls/hr Q10H IV 12/19/24 02:00 12/19/24 11:31 Acetylcysteine (Mucomyst Inhalation 20%) 200 mg Q6HR NEB 12/20/24 00:00 12/22/24 00:00 Vital Signs Vital Signs Date Time Temp Pulse Resp B/P (MAP) Pulse Ox O2 Delivery O2 Flow Rate FiO2 12/19/24 20:40 98.3 70 18 126/68 (87) 98 98.3 12/19/24 17:59 T-piece 6 28 Cool Aerosol 28 Physical Exam Gen.: Patient lying in bed in no apparent distress. On supplemental oxygen via trach. Head: Normocephalic, atraumatic. Eyes: EOMI/PERRLA. Ears: Normal hearing. Normal anatomy. Neck/trachea: Trach in place. Nose: Normal external anatomy. Mouth: Moist mucous membranes. Chest: Decreased air entry bilaterally. No wheezing or rhonchi. Cardiovascular: Positive S1, positive S2. Regular rate and rhythm. Abdomen: Positive bowel sounds in all 4 quadrants. Soft, non-tender, non- distended. : Deferred. Rectal: Deferred. Skin: Warm, dry. Intact. Extremities: 2+ radial pulses bilaterally. No lower extremity edema. Neuro: Awake, alert, oriented x3. Nonverbal at baseline. No gross motor or sensory deficits. Cranial nerves II through XII intact. Quadriplegia. Labs/Diagnostic Data Labs Test 12/19/24 21:05 12/19/24 06:28 12/15/24 06:25 12/15/24 02:00 Range/Units Vancomycin Level Trough 13.0 H 5-10 ug/mL White Blood Count 7.1 4.4-10.8 10^3/uL Red Blood Count 4.76 4.5-5.90 10^6/uL Hemoglobin 14.4 13.5-17.5 g/dL Hematocrit 40.5 L 41.0-53.0 % Mean Corpuscular Volume 85.2 80.0-100.0 fL Mean Corpuscular Hemoglobin 30.3 28.0-32.0 pg Mean Corpuscular Hemoglobin Concent 35.5 32.0-36.0 g/dL Red Cell Distribution Width 14.8 H 11.8-14.3 % Platelet Count 234 140-450 10^3/uL Mean Platelet Volume 8.2 6.9-10.8 fL Neutrophils (%) (Auto) 55.1 37.0-80.0 % Lymphocytes (%) (Auto) 27.9 10.0-50.0 % Monocytes (%) (Auto) 13.2 H 0.0-12.0 % Eosinophils (%) (Auto) 2.8 0.0-7.0 % Basophils (%) (Auto) 1.0 0.0-2.0 % Neutrophils # (Auto) 3.9 1.6-8.6 10 ^3/uL Lymphocytes # (Auto) 2.0 0.4-5.4 10 ^3/uL Monocytes # (Auto) 0.9 0-1.3 10 ^3/uL Eosinophils # (Auto) 0.2 0-0.8 10 ^3/uL Basophils # (Auto) 0.1 0-0.2 10 ^3/uL Nucleated Red Blood Cells 0.1 % Sodium Level 141 136-145 mmol/L Potassium Level 3.7 3.5-5.1 mmol/L Chloride Level 106 98-107 mmol/L Carbon Dioxide Level 28 20-31 mmol/L Anion Gap 7 5-15 Blood Urea Nitrogen 7 L 9-23 mg/dL Creatinine 0.50 L 0.700-1.30 mg/dL Glomerular Filtration Rate Calc 125 >90 mL/min BUN/Creatinine Ratio 14.0 10.0-20.0 Serum Glucose 95 74-106 mg/dL Calcium Level 9.0 8.7-10.4 mg/dL Prothrombin Time 10.3 9.3-11.8 sec Prothrombin Time INR 0.97 0.9-1.15 Activated Partial Thromboplast Time 29.1 24.5-34.5 SEC Urine Color Light-yellow Yellow Urine Clarity Clear Clear Urine pH 6.0 5.0-9.0 Urine Specific [place] 1.010 1.001-1.035 Urine Protein Negative Negative Urine Ketones Negative Negative Urine Blood 2+ H Negative /uL Urine Nitrite Negative Negative Urine Bilirubin Negative Negative Urine Urobilinogen Normal Negative mg/dL Urine Leukocyte Esterase Negative Negative /uL Urine RBC 49 0 - 3 /hpf Urine Microscopic WBC 2 0-3 /HPF Urine Squamous Epithelial Cells None seen <5 /hpf Urine Bacteria None seen None Seen /hpf Urine Mucus Few None Seen Urine Glucose Normal Normal mg/dL Test 12/12/24 08:33 12/11/24 06:00 12/11/24 04:40 12/11/24 02:25 Range/Units Total Bilirubin 0.9 0.2-1.0 mg/dL Aspartate Amino Transferase (AST) 27 13-40 U/L Alanine Aminotransferase (ALT) 47 H 7-40 U/L Alkaline Phosphatase 83 46-116 U/L Total Protein 5.7 5.7-8.2 g/dL Albumin 3.3 3.2-4.8 g/dL Urine Granular Casts Few 0 /lpf Urine Yeast (Budding) Occasional None Seen /hpf Lactic Acid Level 1.6 0.4-2.0 mmol/L Blood Gas Specimen Type Arterial Blood Gas Sample Site Right radial Blood Gas Patient Temperature 37.0 Arterial Blood Date Drawn [id number] Arterial Blood pH 7.483 H 7.350-7.450 Arterial Blood Partial Pressure CO2 31.5 L 35.0-48.0 mmHg Arterial Blood Partial Pressure O2 64.8 L 83.0-108.0 mmHg Arterial Blood HCO3 23.1 21.0-28.0 mmol/L Arterial Blood Oxygen Saturation 93.9 L 94.0-98.0 % Arterial Blood Base Excess 0.7 -2.0-3.0 mmol/L Arterial Blood Oxyhemoglobin 91.9 L 94.0-98.0 % Arterial Blood Carboxyhemoglobin 1.3 0.5-1.5 % Arterial Blood Methemoglobin 0.8 0.0-1.5 % José Miguel Test Modified Blood Gas Total Hemoglobin 17.10 13.5-17.5 g/dL Blood Gas Liter Flow 8.00 Blood Gas Modality Cool aerosol FiO2 % 30.0 Microbiology Date/Time Source Procedure Growth Status 12/11/24 23:10 Nose MRSA Screen - Final Complete 12/11/24 06:00 Voided Urine Urine Culture - Final Complete 12/11/24 02:57 Blood Blood Culture - Final NO GROWTH AFTER 5 DAYS OF INCUBATION. Complete Assessment Impression: Chronic hypoxic respiratory failure S/p tracheostomy Pleural effusion, trace Compressive atelectasis GGO on imaging S/p ventriculoperitoneal shunt Ascites Overweight, BMI 28.5 Plan: Supplemental oxygen On 6 liters via T-piece Titrate to keep O2 sats above 92%. Taper O2 as tolerated. Trach care per RT Pulmonary toileting Continue bronchodilators. Continue antibiotics Monitor renal function. Monitor electrolytes. Supplement as necessary. Monitor ins and outs. Obtain CXR in the AM to assess for interval changes. Wound care. DVT prophylaxis - Lovenox. CT chest, abdomen and pelvis on 12/17/24 revealed trace bilateral pleural effusions, bibasilar atelectasis and diffuse bilateral ground-glass opacity. Cardiomegaly and trace pericardial effusion. Cholelithiasis. Nonobstructive right nephrolithiasis. Percutaneous gastrostomy. Ventriculoperitoneal shunt. Tracheostomy. Small volume pelvic ascites. Labs and imaging reviewed. Prognosis: Poor given patient's multiple co-morbidities. Rest of plan per hospitalist and other consultants. Thank you, Dr. Kothari, for allowing me to participate in this patient's care. Further recommendations will depend on the patient's clinical course. Please do not hesitate to contact me if you have any questions or concerns. This medical document was created using an electronic medical record system with [employer] dictation system. Although these documentations are being carefully reviewed, there may still be some phonetic and typographical changes. The errors are purely typographical, due to imperfection on the software program, and do not reflect any compromise in the patient's medical care. Plan discussed with: Other (RN/MD/Mother) HOMERO PENA MD Dec 19, 2024 22:19
[2024-12-20] VITALS (22 sets, daily range): BP systolic 117–145; BP diastolic 52–76; PULSE 60–84; RESP 16–24; TEMP 97.4–98.9; O2SAT 97–99
[2024-12-20] MEDS: ACETYLCYSTEINE 20%(200MG/ML) SOL 4ML NEB SCH (00:09)
[2024-12-20 05:28] LABS: Hematocrit 44.9 % (41.0-53.0); Hemoglobin 15.3 g/dL (13.5-17.5); Mean Corpuscular Hemoglobin 29.9 pg (28.0-32.0); Mean Corpuscular Volume 87.9 fL (80.0-100.0); Nucleated Red Blood Cells % 0.2 %
[2024-12-20 05:50] LABS: Chloride 106 mmol/L (98-107); Potassium 4.2 mmol/L (3.5-5.1); Sodium 142 mmol/L (136-145)
[2024-12-20 05:52] LABS: Anion Gap 11 (5-15)
[2024-12-20 05:58] LABS: BUN/Creatinine Ratio 22.2 (10.0-20.0)
[2024-12-20 06:02] LABS: Blood Urea Nitrogen 10 mg/dL (9-23); Calcium 9.0 mg/dL (8.7-10.4); Carbon Dioxide 25 mmol/L (20-31); Glucose 81 mg/dL (74-106)
--- NOTE | 2024-12-20 10:35 | DVH ---
CHEST RADIOGRAPH Indication: RESP FAILURE; PLEURAL EFFUSION Technique: Single frontal view of the chest was obtained COMPARISON: XY CHEST PORTABLE on DOS: 12/15/24, XY CHEST XRAY 1 VIEW on DOS: 12/11/24, XY CHEST PORTABL E on DOS: 11/29/24, XY CHEST XRAY 1 VIEW on DOS: 11/22/24, XY CHEST XRAY 1 VIEW on DOS: 11/21/24 FINDINGS: Lines and Tubes: Tracheostomy in satisfactory position. STEWARD/STEWARDESS DINING RO[employer] shunt catheter over the lower right hemiab domen. Lungs: Congestion. Low lung volumes. Pleura: No effusion. No pneumothorax. Cardiomediastinal contours: Cardiomegaly. Bones: Unremarkable IMPRESSION: No significant interval change.
--- NOTE | 2024-12-20 18:41 | DVHPN2 ---
Subjective No new changes Reviewed: Care Plan, H&P, Labs, Medications, Previous Orders, Radiology, Other (Consultants) Changes from previous H/P or p: No Changes Respiratory: Shortness of breath Objective Vitals Vital Signs Date Time Temp Pulse Resp B/P (MAP) Pulse Ox O2 Delivery O2 Flow Rate FiO2 12/20/24 16:43 98.9 82 18 145/68 (93) 97 98.9 12/20/24 12:50 T-piece 6.0 12/20/24 12:50 28 28 Intake/Output Intake and Output 12/20/24 07:00 Intake Total 1300 ml Output Total 3250 ml Balance -1950 ml Intake Oral 0 ml IV Total 1300 ml Output Urine Total 3250 ml # Bowel Movements 4 General Appearance: No acute distress, Other (non verbal) HEENT: Other (Left scalp deformity from previous craniotomy/traumatic brain injury) Neck: Other (trach in place) Lungs: Other (Few crackles bilateral lungs basis) Cardiovascular: Regular rate Musculoskeletal: Other (Contracted And muscle wasting) Medications Current Medications Medications Dose Ordered Sig/Ata Route Start Time Stop Time Status Last Admin Dose Admin Sodium Chloride 1,000 ml @ 120 mls/hr Q8H20M IV 12/11/24 09:56 12/20/24 18:08 120 MLS/HR Ondansetron HCl 4 mg Q4HP PRN IV 12/11/24 08:45 Enoxaparin Sodium 40 mg DAILY SC 12/11/24 10:00 12/20/24 09:01 40 MG Nitroglycerin 0.4 mg Q5MINP PRN SL 12/11/24 08:45 Vancomycin HCl 0 ml @ 0 mls/hr UD IV 12/11/24 08:45 Ascorbic Acid 500 mg BID GT 12/11/24 10:00 12/20/24 09:00 500 MG Baclofen 20 mg Q6HR GT 12/11/24 12:00 12/20/24 17:30 20 MG Multivitamins 1 tab DAILY GT 12/11/24 10:00 12/20/24 09:00 1 TAB Polyethylene Glycol 17 gm DAILY PO 12/11/24 10:00 12/19/24 09:06 17 GM Lacosamide 150 mg BID GT 12/11/24 10:00 12/19/24 22:49 150 MG Levetiracetam 1,000 mg BID GT 12/11/24 10:00 12/20/24 09:00 1,000 MG Acetaminophen 650 mg Q6HP PRN [place] 12/11/24 09:45 Acetaminophen 650 mg Q6HP PRN PO 12/11/24 10:00 Cefepime HCl 50 ml @ 12.5 mls/hr Q8HR IV 12/11/24 22:00 12/20/24 13:14 12.5 MLS/HR Levalbuterol HCl 0.625 mg Q6HR NEB 12/12/24 00:00 12/20/24 12:00 0.625 MG Ipratropium [place] 0.5 mg Q6HR NEB 12/12/24 00:00 12/20/24 12:00 0.5 MG Enteral Nutritional Formula 1,000 ml 60ML/HR GT 12/13/24 04:15 12/19/24 16:40 1,000 ML Vancomycin HCl 200 ml @ 200 mls/hr Q10H IV 12/19/24 02:00 12/20/24 17:30 200 MLS/HR Acetylcysteine 200 mg Q6HR NEB 12/20/24 00:00 12/22/24 00:00 12/20/24 12:00 200 MG Laboratory Results Laboratory Tests 12/20/24 04:49 Chemistry Test 12/20/24 04:49 Calcium Level 9.0 mg/dL (8.7-10.4) Urinalysis Test 12/11/24 06:00 12/15/24 02:00 Urine Granular Casts Few /lpf (0) Urine Yeast (Budding) Occasional /hpf (None Urine Color Light-yellow (Yellow) Urine Clarity Clear (Clear) Urine pH 6.0 (5.0-9.0) Urine Specific [place] 1.010 (1.001-1.035) Urine Protein Negative (Negative) Urine Ketones Negative (Negative) Urine Blood 2+ /uL (Negative) H Urine Nitrite Negative (Negative) Urine Bilirubin Negative (Negative) Urine Urobilinogen Normal mg/dL (Negative) Urine Leukocyte Esterase Negative /uL (Negative) Urine RBC 49 /hpf (0 - 3) Urine Microscopic WBC 2 /HPF (0-3) Urine Squamous Epithelial Cells None seen /hpf (<5) Urine Bacteria None seen /hpf (None Seen) Urine Mucus Few (None Seen) Urine Glucose Normal mg/dL (Normal) Microbiology Microbiology Date/Time Source Procedure Growth Status 12/11/24 23:10 Nose MRSA Screen - Final Complete 12/11/24 06:00 Voided Urine Urine Culture - Final Complete 12/11/24 02:57 Blood Blood Culture - Final NO GROWTH AFTER 5 DAYS OF INCUBATION. Complete Assessment/Plan Assessment/Plan Acute on chronic respiratory failure Status post tracheostomy Congestive heart failure Pleural effusion Seizures History of endocarditis History of traumatic brain injury status post left craniotomy Quadriplegia Nonverbal Bed-bound Status post CONTROL CLERK REPAIRS shunt Chronic ground-glass opacities/GGO Plan: Continue current plan of care Plan discussed with: Other (Mother at bedside) Date of Service: Dec 20, 2024 Billing Provider: ABEL STANLEY MD Common Visit Codes: [id number] INP/OBS CARE(HIGH) ABEL STANLEY MD Dec 20, 2024 18:41
--- NOTE | 2024-12-20 23:20 | DVHPN2 ---
Progress Note - Dictate Date Seen: Dec 20, 2024 Medical Necessity Reason Pt with a Central, PICC or Fol: Yes The following are medically ne: Willis Catheter Reason for willis catheter: Strict I&O Subjective Patient seen and examined at bedside. Remains on supplemental oxygen via trach Overnight events reviewed. vital signs Vital Sign Date Time Temp Pulse Resp B/P (MAP) Pulse Ox O2 Delivery O2 Flow Rate FiO2 12/20/24 22:30 98 T-piece 6 28 Cool Aerosol 28 12/20/24 21:00 97.8 67 18 124/67 (86) 97.8 Total Intake and Output 12/19/24 12/19/24 12/20/24 15:00 23:00 07:00 Intake Total 1250 ml 50 ml 0 ml Output Total 1950 ml 1300 ml Balance 1250 ml -1900 ml -1300 ml medications Current Medications Medications Dose Ordered Sig/Ata Route Start Time Stop Time Status Last Admin Dose Admin Sodium Chloride 1,000 ml @ 120 mls/hr Q8H20M IV 12/11/24 09:56 12/20/24 18:08 120 MLS/HR Ondansetron HCl 4 mg Q4HP PRN IV 12/11/24 08:45 Enoxaparin Sodium 40 mg DAILY SC 12/11/24 10:00 12/20/24 09:01 40 MG Nitroglycerin 0.4 mg Q5MINP PRN SL 12/11/24 08:45 Vancomycin HCl 0 ml @ 0 mls/hr UD IV 12/11/24 08:45 Ascorbic Acid 500 mg BID GT 12/11/24 10:00 12/20/24 21:50 500 MG Baclofen 20 mg Q6HR GT 12/11/24 12:00 12/20/24 17:30 20 MG Multivitamins 1 tab DAILY GT 12/11/24 10:00 12/20/24 09:00 1 TAB Polyethylene Glycol 17 gm DAILY PO 12/11/24 10:00 12/19/24 09:06 17 GM Lacosamide 150 mg BID GT 12/11/24 10:00 12/20/24 21:50 150 MG Levetiracetam 1,000 mg BID GT 12/11/24 10:00 12/20/24 21:50 1,000 MG Acetaminophen 650 mg Q6HP PRN [place] 12/11/24 09:45 Acetaminophen 650 mg Q6HP PRN PO 12/11/24 10:00 Cefepime HCl 50 ml @ 12.5 mls/hr Q8HR IV 12/11/24 22:00 12/20/24 21:46 12.5 MLS/HR Levalbuterol HCl 0.625 mg Q6HR NEB 12/12/24 00:00 12/20/24 19:00 0.625 MG Ipratropium [place] 0.5 mg Q6HR NEB 12/12/24 00:00 12/20/24 19:00 0.5 MG Enteral Nutritional Formula 1,000 ml 60ML/HR GT 12/13/24 04:15 12/19/24 16:40 1,000 ML Vancomycin HCl 200 ml @ 200 mls/hr Q10H IV 12/19/24 02:00 12/20/24 17:30 200 MLS/HR Acetylcysteine 200 mg Q6HR NEB 12/20/24 00:00 12/22/24 00:00 12/20/24 19:00 200 MG objective Gen.: Patient lying in bed in no apparent distress. On supplemental oxygen via trach Head: Normocephalic, atraumatic. Eyes: EOMI/PERRLA. Ears: Normal hearing. Normal anatomy. Neck/trachea: Trach in place. Nose: Normal external anatomy. Mouth: Moist mucous membranes. Chest: Decreased air entry bilaterally. No wheezing or rhonchi. Cardiovascular: Positive S1, positive S2. Regular rate and rhythm. Abdomen: Positive bowel sounds in all 4 quadrants. Soft, non-tender, non- distended. : Deferred. Rectal: Deferred. Skin: Warm, dry. Intact. Extremities: 2+ radial pulses bilaterally. No lower extremity edema. Neuro: Awake, alert, oriented x3. Nonverbal at baseline. No gross motor or sensory deficits. Cranial nerves II through XII intact. Quadriplegia. laboratory and microbiology Laboratory Tests 12/20/24 04:49 Test 12/20/24 04:49 Range/Units Serum Glucose 81 74-106 mg/dL Assessment/Plan Impression: Chronic hypoxic respiratory failure S/p tracheostomy Pleural effusion, trace Compressive atelectasis GGO on imaging S/p ventriculoperitoneal shunt Ascites Overweight, BMI 28.5 Events: Remains on supplemental oxygen On 6 LPM humidified air via trach Continue trach care Continue bronchodilators Continue antibiotics CXR reviewed, no significant change; notable for congestion, low lung volumes, cardiomegaly, Continue Lovenox for DVT ppx Labs and imaging reviewed. Rest of plan as noted below. Plan: Supplemental oxygen On 6 liters via T-piece Titrate to keep O2 sats above 92%. Trach care per RT Pulmonary toileting Continue bronchodilators. Continue antibiotics Monitor renal function. Monitor electrolytes. Supplement as necessary. Monitor ins and outs. Wound care. DVT prophylaxis - Lovenox. CT chest, abdomen and pelvis on 12/17/24 revealed trace bilateral pleural effusions, bibasilar atelectasis and diffuse bilateral ground-glass opacity. Cardiomegaly and trace pericardial effusion. Cholelithiasis. Nonobstructive right nephrolithiasis. Percutaneous gastrostomy. Ventriculoperitoneal shunt. Tracheostomy. Small volume pelvic ascites. Labs and imaging reviewed. Prognosis: Poor given patient's multiple co-morbidities. Rest of plan per hospitalist and other consultants. Thank you, Dr. Kothari, for allowing me to participate in this patient's care. Further recommendations will depend on the patient's clinical course. Please do not hesitate to contact me if you have any questions or concerns. This medical document was created using an electronic medical record system with [employer] dictation system. Although these documentations are being carefully reviewed, there may still be some phonetic and typographical changes. The errors are purely typographical, due to imperfection on the software program, and do not reflect any compromise in the patient's medical care. Dietary Evaluation Review Comments: 1. Recommend peptide based TF Pivot 1.5Cal @45ml/hr providing 101g protein 1620kcal supporting pt's protein needs @120% and energy needs @93%. 2. 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
[2024-12-21] VITALS (17 sets, daily range): BP systolic 112–143; BP diastolic 64–89; PULSE 59–110; RESP 16–20; TEMP 97.6–98.8; O2SAT 96–100
--- NOTE | 2024-12-21 16:04 | DVHPN2 ---
Subjective No new changes Reviewed: Care Plan, H&P, Labs, Medications, Previous Orders, Radiology, Other (Consultants) Changes from previous H/P or p: No Changes Respiratory: Shortness of breath Objective Vitals Vital Signs Date Time Temp Pulse Resp B/P (MAP) Pulse Ox O2 Delivery O2 Flow Rate FiO2 12/21/24 13:00 98.8 77 20 121/72 (88) 96 98.8 12/21/24 11:35 T-piece 6.0 12/21/24 11:35 28 28 Intake/Output Intake and Output 12/21/24 07:00 Intake Total 3546.5 ml Output Total 3825 ml Balance -278.5 ml Intake Oral 0 ml IV Total 3546.5 ml Output Urine Total 3825 ml # Bowel Movements 2 General Appearance: No acute distress, Other (non verbal) HEENT: Other (Left scalp deformity from previous craniotomy/traumatic brain injury) Neck: Other (trach in place) Lungs: Other (Few crackles bilateral lungs basis) Cardiovascular: Regular rate Musculoskeletal: Other (Contracted And muscle wasting) Medications Current Medications Medications Dose Ordered Sig/Ata Route Start Time Stop Time Status Last Admin Dose Admin Sodium Chloride 1,000 ml @ 120 mls/hr Q8H20M IV 12/11/24 09:56 12/21/24 12:18 120 MLS/HR Ondansetron HCl 4 mg Q4HP PRN IV 12/11/24 08:45 Enoxaparin Sodium 40 mg DAILY SC 12/11/24 10:00 12/21/24 09:36 40 MG Nitroglycerin 0.4 mg Q5MINP PRN SL 12/11/24 08:45 Vancomycin HCl 0 ml @ 0 mls/hr UD IV 12/11/24 08:45 Ascorbic Acid 500 mg BID GT 12/11/24 10:00 12/21/24 09:35 500 MG Baclofen 20 mg Q6HR GT 12/11/24 12:00 12/21/24 12:17 20 MG Multivitamins 1 tab DAILY GT 12/11/24 10:00 12/21/24 09:35 1 TAB Polyethylene Glycol 17 gm DAILY PO 12/11/24 10:00 12/19/24 09:06 17 GM Lacosamide 150 mg BID GT 12/11/24 10:00 12/21/24 09:35 150 MG Levetiracetam 1,000 mg BID GT 12/11/24 10:00 12/21/24 09:35 1,000 MG Acetaminophen 650 mg Q6HP PRN [place] 12/11/24 09:45 Acetaminophen 650 mg Q6HP PRN PO 12/11/24 10:00 Cefepime HCl 50 ml @ 12.5 mls/hr Q8HR IV 12/11/24 22:00 12/21/24 15:10 12.5 MLS/HR Levalbuterol HCl 0.625 mg Q6HR NEB 12/12/24 00:00 12/21/24 11:35 0.625 MG Ipratropium [place] 0.5 mg Q6HR NEB 12/12/24 00:00 12/21/24 11:35 0.5 MG Enteral Nutritional Formula 1,000 ml 60ML/HR GT 12/13/24 04:15 12/19/24 16:40 1,000 ML Vancomycin HCl 200 ml @ 200 mls/hr Q10H IV 12/19/24 02:00 12/21/24 13:59 200 MLS/HR Acetylcysteine 200 mg Q6HR NEB 12/20/24 00:00 12/22/24 00:00 12/21/24 11:35 200 MG Laboratory Results Laboratory Tests 12/20/24 04:49 Urinalysis Test 12/11/24 06:00 12/15/24 02:00 Urine Granular Casts Few /lpf (0) Urine Yeast (Budding) Occasional /hpf (None Urine Color Light-yellow (Yellow) Urine Clarity Clear (Clear) Urine pH 6.0 (5.0-9.0) Urine Specific [place] 1.010 (1.001-1.035) Urine Protein Negative (Negative) Urine Ketones Negative (Negative) Urine Blood 2+ /uL (Negative) H Urine Nitrite Negative (Negative) Urine Bilirubin Negative (Negative) Urine Urobilinogen Normal mg/dL (Negative) Urine Leukocyte Esterase Negative /uL (Negative) Urine RBC 49 /hpf (0 - 3) Urine Microscopic WBC 2 /HPF (0-3) Urine Squamous Epithelial Cells None seen /hpf (<5) Urine Bacteria None seen /hpf (None Seen) Urine Mucus Few (None Seen) Urine Glucose Normal mg/dL (Normal) Microbiology Microbiology Date/Time Source Procedure Growth Status 12/20/24 01:31 Trachea Gram Stain - Final Resulted 12/20/24 01:31 Trachea Respiratory Culture - Preliminary Resulted 12/11/24 06:00 Voided Urine Urine Culture - Final Complete 12/11/24 02:57 Blood Blood Culture - Final NO GROWTH AFTER 5 DAYS OF INCUBATION. Complete Assessment/Plan Assessment/Plan Acute on chronic respiratory failure Status post tracheostomy Congestive heart failure Pleural effusion Seizures History of endocarditis History of traumatic brain injury status post left craniotomy Quadriplegia Nonverbal Bed-bound Status post BOSS MINER shunt Chronic ground-glass opacities/GGO Plan: New respiratory culture growing Gram-negative mallorie and Gram-positive cocci in pairs. Continue vanco and cefepime for now awaiting final ID and sensitivity Plan discussed with: Other (Nursing) Date of Service: Dec 21, 2024 Billing Provider: OUTSIDE PROV,PSIMED U Common Visit Codes: [id number] INP/OBS CARE(HIGH) ABEL STANLEY MD Dec 21, 2024 16:04
--- NOTE | 2024-12-21 23:20 | DVHPN2 ---
Progress Note - Dictate Date Seen: Dec 21, 2024 Medical Necessity Reason Pt with a Central, PICC or Fol: Yes The following are medically ne: Willis Catheter Reason for willis catheter: Strict I&O Subjective [facility] Patient seen and examined at bedside. Remains on supplemental oxygen via trach Overnight events reviewed. vital signs Vital Sign Date Time Temp Pulse Resp B/P (MAP) Pulse Ox O2 Delivery O2 Flow Rate FiO2 12/21/24 20:56 98.6 81 16 125/70 (88) 97 98.6 12/21/24 20:00 T-piece 6 N/A Total Intake and Output 12/20/24 12/20/24 12/21/24 15:00 23:00 07:00 Intake Total 2646.5 ml 900 ml 0 ml Output Total 2425 ml 1400 ml Balance 2646.5 ml -1525 ml -1400 ml medications Current Medications Medications Dose Ordered Sig/Ata Route Start Time Stop Time Status Last Admin Dose Admin Sodium Chloride 1,000 ml @ 120 mls/hr Q8H20M IV 12/11/24 09:56 12/21/24 19:57 120 MLS/HR Ondansetron HCl 4 mg Q4HP PRN IV 12/11/24 08:45 Enoxaparin Sodium 40 mg DAILY SC 12/11/24 10:00 12/21/24 09:36 40 MG Nitroglycerin 0.4 mg Q5MINP PRN SL 12/11/24 08:45 Vancomycin HCl 0 ml @ 0 mls/hr UD IV 12/11/24 08:45 Ascorbic Acid 500 mg BID GT 12/11/24 10:00 12/21/24 21:47 500 MG Baclofen 20 mg Q6HR GT 12/11/24 12:00 12/21/24 18:33 20 MG Multivitamins 1 tab DAILY GT 12/11/24 10:00 12/21/24 09:35 1 TAB Polyethylene Glycol 17 gm DAILY PO 12/11/24 10:00 12/19/24 09:06 17 GM Lacosamide 150 mg BID GT 12/11/24 10:00 12/21/24 21:48 150 MG Levetiracetam 1,000 mg BID GT 12/11/24 10:00 12/21/24 21:47 1,000 MG Acetaminophen 650 mg Q6HP PRN SC 12/11/24 09:45 Acetaminophen 650 mg Q6HP PRN PO 12/11/24 10:00 Cefepime HCl 50 ml @ 12.5 mls/hr Q8HR IV 12/11/24 22:00 12/21/24 21:47 12.5 MLS/HR Levalbuterol HCl 0.625 mg Q6HR NEB 12/12/24 00:00 12/21/24 19:10 0.625 MG Ipratropium [place] 0.5 mg Q6HR NEB 12/12/24 00:00 12/21/24 19:10 0.5 MG Enteral Nutritional Formula 1,000 ml 60ML/HR GT 12/13/24 04:15 12/19/24 16:40 1,000 ML Vancomycin HCl 200 ml @ 200 mls/hr Q10H IV 12/19/24 02:00 12/21/24 13:59 200 MLS/HR Acetylcysteine 200 mg Q6HR NEB 12/20/24 00:00 12/22/24 00:00 12/21/24 19:11 200 MG objective Gen.: Patient lying in bed in no apparent distress. On supplemental oxygen via trach Head: Normocephalic, atraumatic. Eyes: EOMI/PERRLA. Ears: Normal hearing. Normal anatomy. Neck/trachea: Trach in place. Nose: Normal external anatomy. Mouth: Moist mucous membranes. Chest: Decreased air entry bilaterally. No wheezing or rhonchi. Cardiovascular: Positive S1, positive S2. Regular rate and rhythm. Abdomen: Positive bowel sounds in all 4 quadrants. Soft, non-tender, non- distended. : Deferred. Rectal: Deferred. Skin: Warm, dry. Intact. Extremities: 2+ radial pulses bilaterally. No lower extremity edema. Neuro: Awake, alert, oriented x3. Nonverbal at baseline. No gross motor or sensory deficits. Cranial nerves II through XII intact. Quadriplegia. laboratory and microbiology Laboratory Tests 12/20/24 04:49 Test 12/20/24 04:49 Range/Units Serum Glucose 81 74-106 mg/dL Assessment/Plan Impression: Chronic hypoxic respiratory failure S/p tracheostomy Pleural effusion, trace Compressive atelectasis GGO on imaging S/p ventriculoperitoneal shunt Ascites Overweight, BMI 28.5 Events: Remains on supplemental oxygen On 6 LPM humidified air via trach Continue trach care No overnight events. Continue bronchodilators/Mucomyst Continue antibiotics - vancomycin and cefepime Head of bed elevation Aspiration precautions Tube feeds for nutritional support Continue Lovenox for DVT ppx CXR on 12/20 showed no significant change; notable for congestion, low lung volumes, cardiomegaly, Labs and imaging reviewed. Rest of plan as noted below. Plan: Supplemental oxygen On 6 liters via T-piece Titrate to keep O2 sats above 92%. Trach care per RT Pulmonary toileting Continue bronchodilators. Continue antibiotics Monitor renal function. Monitor electrolytes. Supplement as necessary. Monitor ins and outs. Wound care. DVT prophylaxis - Lovenox. CT chest, abdomen and pelvis on 12/17/24 revealed trace bilateral pleural effusions, bibasilar atelectasis and diffuse bilateral ground-glass opacity. Cardiomegaly and trace pericardial effusion. Cholelithiasis. Nonobstructive right nephrolithiasis. Percutaneous gastrostomy. Ventriculoperitoneal shunt. Tracheostomy. Small volume pelvic ascites. Labs and imaging reviewed. Prognosis: Poor given patient's multiple co-morbidities. Rest of plan per hospitalist and other consultants. Thank you, Dr. Kothari, for allowing me to participate in this patient's care. Further recommendations will depend on the patient's clinical course. Please do not hesitate to contact me if you have any questions or concerns. This medical document was created using an electronic medical record system with [employer] dictation system. Although these documentations are being carefully reviewed, there may still be some phonetic and typographical changes. The errors are purely typographical, due to imperfection on the software program, and do not reflect any compromise in the patient's medical care. Dietary Evaluation Review Comments: 1. Recommend peptide based TF Pivot 1.5Cal @45ml/hr providing 101g protein 1620kcal supporting pt's protein needs @120% and energy needs @93%. 2. 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
[2024-12-22] VITALS (15 sets, daily range): BP systolic 118–139; BP diastolic 60–79; PULSE 61–95; RESP 16–97; TEMP 97.9–99.4; O2SAT 96–100
--- NOTE | 2024-12-22 10:15 | DVHPN2 ---
Subjective The patient is nonverbal; afebrile; no overnight events; still on 6 L/min oxygen therapy Reviewed: Care Plan, H&P, Labs, Medications, Previous Orders, Radiology, Other (Consultations) Changes from previous H/P or p: No Changes Objective Vitals Vital Signs Date Time Temp Pulse Resp B/P (MAP) Pulse Ox O2 Delivery O2 Flow Rate FiO2 12/22/24 09:00 98.3 77 18 124/68 (86) 98 98.3 12/22/24 05:40 Trach Collar 6 N/A T-piece Intake/Output Intake and Output 12/22/24 07:00 Intake Total 3340 ml Output Total 2000 ml Balance 1340 ml Intake Oral 0 ml IV Total 1500 ml Tube Feeding 1600 ml Other 240 ml Output Urine Total 2000 ml # Voids 4 # Bowel Movements 3 General Appearance: No acute distress, Other (Nonverbal) HEENT: Other (Left scalp deformity from previous craniotomy/traumatic brain injury) Neck: Other (Tracheostomy in place) Lungs: Other (Few crackles bilateral lungs basis) Cardiovascular: Regular rate, Normal S1, Normal S2 Abdomen: Normal bowel sounds, Soft, Other (G-tube in place) Genitourinary: Other (El's in place) Musculoskeletal: Other (Contracted And muscle wasting) Extremities: No edema Neuro: Other (Quadriplegic; nonverbal) Skin: Other (Refer to nursing documentation) Psych/Mental Status: Other (Nonverbal) Medications Current Medications Medications Dose Ordered Sig/Ata Route Start Time Stop Time Status Last Admin Dose Admin Sodium Chloride 1,000 ml @ 120 mls/hr Q8H20M IV 12/11/24 09:56 12/22/24 04:25 120 MLS/HR Ondansetron HCl 4 mg Q4HP PRN IV 12/11/24 08:45 Enoxaparin Sodium 40 mg DAILY SC 12/11/24 10:00 12/21/24 09:36 40 MG Nitroglycerin 0.4 mg Q5MINP PRN SL 12/11/24 08:45 Vancomycin HCl 0 ml @ 0 mls/hr UD IV 12/11/24 08:45 Ascorbic Acid 500 mg BID GT 12/11/24 10:00 12/21/24 21:47 500 MG Baclofen 20 mg Q6HR GT 12/11/24 12:00 12/22/24 05:41 20 MG Multivitamins 1 tab DAILY GT 12/11/24 10:00 12/21/24 09:35 1 TAB Polyethylene Glycol 17 gm DAILY PO 12/11/24 10:00 12/19/24 09:06 17 GM Lacosamide 150 mg BID GT 12/11/24 10:00 12/21/24 21:48 150 MG Levetiracetam 1,000 mg BID GT 12/11/24 10:00 12/21/24 21:47 1,000 MG Acetaminophen 650 mg Q6HP PRN [place] 12/11/24 09:45 Acetaminophen 650 mg Q6HP PRN PO 12/11/24 10:00 Cefepime HCl 50 ml @ 12.5 mls/hr Q8HR IV 12/11/24 22:00 12/22/24 05:41 12.5 MLS/HR Levalbuterol HCl 0.625 mg Q6HR NEB 12/12/24 00:00 12/22/24 05:40 0.625 MG Ipratropium [place] 0.5 mg Q6HR NEB 12/12/24 00:00 12/22/24 05:40 0.5 MG Enteral Nutritional Formula 1,000 ml 60ML/HR GT 12/13/24 04:15 12/19/24 16:40 1,000 ML Vancomycin HCl 200 ml @ 200 mls/hr Q10H IV 12/22/24 10:00 UNV Laboratory Results Laboratory Tests 12/20/24 04:49 Urinalysis Test 12/11/24 06:00 12/15/24 02:00 Urine Granular Casts Few /lpf (0) Urine Yeast (Budding) Occasional /hpf (None Urine Color Light-yellow (Yellow) Urine Clarity Clear (Clear) Urine pH 6.0 (5.0-9.0) Urine Specific [place] 1.010 (1.001-1.035) Urine Protein Negative (Negative) Urine Ketones Negative (Negative) Urine Blood 2+ /uL (Negative) H Urine Nitrite Negative (Negative) Urine Bilirubin Negative (Negative) Urine Urobilinogen Normal mg/dL (Negative) Urine Leukocyte Esterase Negative /uL (Negative) Urine RBC 49 /hpf (0 - 3) Urine Microscopic WBC 2 /HPF (0-3) Urine Squamous Epithelial Cells None seen /hpf (<5) Urine Bacteria None seen /hpf (None Seen) Urine Mucus Few (None Seen) Urine Glucose Normal mg/dL (Normal) Microbiology Microbiology Date/Time Source Procedure Growth Status 12/20/24 01:31 Trachea Gram Stain - Final Resulted 12/20/24 01:31 Trachea Respiratory Culture - Preliminary Resulted 12/11/24 06:00 Voided Urine Urine Culture - Final Complete 12/11/24 02:57 Blood Blood Culture - Final NO GROWTH AFTER 5 DAYS OF INCUBATION. Complete Labs and/or images reviewed: Labs reviewed by me, Image(s) reviewed by me Assessment/Plan Assessment/Plan Covering: # Acute on chronic hypoxic respiratory failure due to suspected aspiration pneumonia, pleural effusion, and compressive atelectasis; sputum cultures growing Gram-positive cocci and Gram-negative rods; chronic ground-glass opacities on imaging # Hypertensive heart disease with chronic diastolic heart failure; not in exacerbation; with a history of endocarditis # Traumatic brain injury status post left craniotomy, status post G-tube, status post tracheostomy; status post TROLLEY CAR OPERATOR shunt; quadriplegic; nonverbal; bed-bound # 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 # Overweight Continue IV antibiotics as per pulmonology Continue oxygen therapy as needed Reviewed the available lab work and imaging studies Urine and blood cultures are negative so far Reviewed sputum cultures Continue tube feeding as per entry level finance Continue monitoring liver and kidney functions due to broad-spectrum IV antibiotics Continue tracheostomy care Continue wound prevention care by moving the patient every 2 hours Aspiration and seizures precautions Continue antiseizure medications DVT and GI prophylaxis Goals of care discussed with the patient's mother for 20 minutes; full code Late Entry. This medical document was created using an electronic medical record system with computerized dictation system. Although this document has been carefully reviewed, there might still be some phonetic and typographical errors. These areas are purely typographical due to imperfections of the software programs, and do not reflect any compromise in the patient's medical care. Plan discussed with: Other (Mother, Nurse) Date of Service: Dec 22, 2024 Billing Provider: LEANDER CUEVA MD Common Visit Codes: [id number] INP/OBS CARE(HIGH) Secondary Visit Codes: [id number] CARE PLAN 30 MINUTES (20 minutes) LEANDER CUEVA MD Dec 22, 2024 10:15
[2024-12-22] MEDS: VANCOMYCIN 1GM/200ML PM 200 ML IV SCH (10:53)
--- NOTE | 2024-12-22 21:58 | DVHPN2 ---
Progress Note - Dictate Date Seen: Dec 22, 2024 Medical Necessity Reason Pt with a Central, PICC or Fol: Yes The following are medically ne: Willis Catheter Reason for willis catheter: Strict I&O Subjective [facility] Patient seen and examined at bedside. Remains on supplemental oxygen via trach Overnight events reviewed. vital signs Vital Sign Date Time Temp Pulse Resp B/P (MAP) Pulse Ox O2 Delivery O2 Flow Rate FiO2 12/22/24 18:23 98 T-piece 6.0 12/22/24 18:23 N/A 12/22/24 18:23 64 20 12/22/24 16:32 99.4 139/79 (99) 99.4 Total Intake and Output 12/21/24 12/21/24 12/22/24 15:00 23:00 07:00 Intake Total 680 ml 2660 ml Output Total 2000 ml Balance 680 ml 660 ml medications Current Medications Medications Dose Ordered Sig/Ata Route Start Time Stop Time Status Last Admin Dose Admin Sodium Chloride 1,000 ml @ 120 mls/hr Q8H20M IV 12/11/24 09:56 12/22/24 12:18 120 MLS/HR Ondansetron HCl 4 mg Q4HP PRN IV 12/11/24 08:45 Nitroglycerin 0.4 mg Q5MINP PRN SL 12/11/24 08:45 Ascorbic Acid 500 mg BID GT 12/11/24 10:00 12/22/24 10:16 500 MG Baclofen 20 mg Q6HR GT 12/11/24 12:00 12/22/24 17:12 20 MG Multivitamins 1 tab DAILY GT 12/11/24 10:00 12/22/24 10:16 1 TAB Polyethylene Glycol 17 gm DAILY PO 12/11/24 10:00 12/19/24 09:06 17 GM Lacosamide 150 mg BID GT 12/11/24 10:00 12/22/24 10:16 150 MG Levetiracetam 1,000 mg BID GT 12/11/24 10:00 12/22/24 10:16 1,000 MG Acetaminophen 650 mg Q6HP PRN [place] 12/11/24 09:45 Acetaminophen 650 mg Q6HP PRN PO 12/11/24 10:00 Cefepime HCl 50 ml @ 12.5 mls/hr Q8HR IV 12/11/24 22:00 12/22/24 15:40 12.5 MLS/HR Levalbuterol HCl 0.625 mg Q6HR NEB 12/12/24 00:00 12/22/24 18:23 0.625 MG Ipratropium [place] 0.5 mg Q6HR NEB 12/12/24 00:00 12/22/24 18:23 0.5 MG Enteral Nutritional Formula 1,000 ml 60ML/HR GT 12/13/24 04:15 12/22/24 10:36 1,000 ML Vancomycin HCl 200 ml @ 200 mls/hr Q10H IV 12/22/24 10:00 12/22/24 20:14 200 MLS/HR objective Gen.: Patient lying in bed in no apparent distress. On supplemental oxygen via trach Head: Normocephalic, atraumatic. Eyes: EOMI/PERRLA. Ears: Normal hearing. Normal anatomy. Neck/trachea: Trach in place. Nose: Normal external anatomy. Mouth: Moist mucous membranes. Chest: Decreased air entry bilaterally. No wheezing or rhonchi. Cardiovascular: Positive S1, positive S2. Regular rate and rhythm. Abdomen: Positive bowel sounds in all 4 quadrants. Soft, non-tender, non- distended. : Deferred. Rectal: Deferred. Skin: Warm, dry. Intact. Extremities: 2+ radial pulses bilaterally. No lower extremity edema. Neuro: Awake, alert, oriented x3. Nonverbal at baseline. No gross motor or sensory deficits. Cranial nerves II through XII intact. Quadriplegia. laboratory and microbiology Laboratory Tests 12/20/24 04:49 Test 12/20/24 04:49 Range/Units Serum Glucose 81 74-106 mg/dL Assessment/Plan Impression: Chronic hypoxic respiratory failure S/p tracheostomy Pleural effusion, trace Compressive atelectasis GGO on imaging S/p ventriculoperitoneal shunt Ascites Overweight, BMI 28.5 Events: Remains on supplemental oxygen On 6 LPM humidified air via trach Pt with thick yellow sputum Afebrile. No overnight events. Continue trach care Continue bronchodilators/Mucomyst Continue antibiotics - vancomycin and cefepime Head of bed elevation Aspiration precautions Patient is NPO Tube feeds for nutritional support Continue Lovenox for DVT ppx CXR on 12/20 showed no significant change; notable for congestion, low lung volumes, cardiomegaly, Labs and imaging reviewed. Rest of plan as noted below. Plan: Supplemental oxygen On 6 liters via T-piece Titrate to keep O2 sats above 92%. Trach care per RT Pulmonary toileting Continue bronchodilators. Continue antibiotics Monitor renal function. Monitor electrolytes. Supplement as necessary. Monitor ins and outs. Wound care. DVT prophylaxis - Lovenox. CT chest, abdomen and pelvis on 12/17/24 revealed trace bilateral pleural effusions, bibasilar atelectasis and diffuse bilateral ground-glass opacity. Cardiomegaly and trace pericardial effusion. Cholelithiasis. Nonobstructive right nephrolithiasis. Percutaneous gastrostomy. Ventriculoperitoneal shunt. Tracheostomy. Small volume pelvic ascites. Labs and imaging reviewed. Prognosis: Poor given patient's multiple co-morbidities. Rest of plan per hospitalist and other consultants. Thank you, Dr. Kothari, for allowing me to participate in this patient's care. Further recommendations will depend on the patient's clinical course. Please do not hesitate to contact me if you have any questions or concerns. This medical document was created using an electronic medical record system with [employer] dictation system. Although these documentations are being carefully reviewed, there may still be some phonetic and typographical changes. The errors are purely typographical, due to imperfection on the software program, and do not reflect any compromise in the patient's medical care. Dietary Evaluation Review Comments: 1. Recommend peptide based TF Pivot 1.5Cal @45ml/hr providing 101g protein 1620kcal supporting pt's protein needs @120% and energy needs @93%. 2. Reassess when pt passes MEMORIAL COUNSELOR eval and able to have PO feedings Expected Outcomes/Goals: prevent wt loss, improve nutrition status Plan discussed with: Patient, Other (CRYSTAL Martines) HOMERO PENA MD Dec 22, 2024 21:58
[2024-12-23] VITALS (19 sets, daily range): BP systolic 113–133; BP diastolic 59–79; PULSE 59–88; RESP 16–20; TEMP 98.1–99.4; O2SAT 94–100
[2024-12-23 06:31] LABS: Hematocrit 40.8 % (41.0-53.0); Hemoglobin 14.3 g/dL (13.5-17.5); Mean Corpuscular Hemoglobin 29.7 pg (28.0-32.0); Mean Corpuscular Volume 84.7 fL (80.0-100.0); Nucleated Red Blood Cells % 0.2 %
[2024-12-23 06:42] LABS: Alkaline Phosphatase 94 U/L (46-116); Anion Gap 9 (5-15); BUN/Creatinine Ratio 12.0 (10.0-20.0); Calcium 9.2 mg/dL (8.7-10.4); Carbon Dioxide 26 mmol/L (20-31); Chloride 107 mmol/L (98-107); Glucose 93 mg/dL (74-106); Potassium 3.9 mmol/L (3.5-5.1); Sodium 142 mmol/L (136-145); Total Protein 5.9 g/dL (5.7-8.2)
--- NOTE | 2024-12-23 06:42 | DVHPN2 ---
Subjective The patient is nonverbal; still on 6 L/min oxygen therapy; running low-grade fever at 99.4 Reviewed: Care Plan, H&P, Labs, Medications, Previous Orders, Radiology, Other (Consultations) Changes from previous H/P or p: Changes Objective Vitals Vital Signs Date Time Temp Pulse Resp B/P (MAP) Pulse Ox O2 Delivery O2 Flow Rate FiO2 12/23/24 05:58 85 18 100 12/23/24 05:52 T-piece 8 12/23/24 05:00 98.7 117/73 (88) 98.7 Intake/Output Intake and Output 12/23/24 07:00 Intake Total 2410 ml Output Total 3950 ml Balance -1540 ml Intake Oral 0 ml IV Total 1690 ml Tube Feeding 720 ml Output Urine Total 3950 ml # Bowel Movements 1 General Appearance: No acute distress, Other (Nonverbal) HEENT: Other (Left scalp deformity from previous craniotomy/traumatic brain injury) Neck: Other (Tracheostomy in place) Lungs: Other (Few crackles bilateral lungs basis) Cardiovascular: Regular rate, Normal S1, Normal S2 Abdomen: Normal bowel sounds, Soft, Other (G-tube in place) Genitourinary: Other (El's in place) Musculoskeletal: Other (Contracted And muscle wasting) Extremities: No edema Neuro: Other (Quadriplegic; nonverbal) Skin: Other (Refer to nursing documentation) Psych/Mental Status: Other (Nonverbal) Medications Current Medications Medications Dose Ordered Sig/Ata Route Start Time Stop Time Status Last Admin Dose Admin Sodium Chloride 1,000 ml @ 120 mls/hr Q8H20M IV 12/11/24 09:56 12/23/24 05:17 120 MLS/HR Ondansetron HCl 4 mg Q4HP PRN IV 12/11/24 08:45 Nitroglycerin 0.4 mg Q5MINP PRN SL 12/11/24 08:45 Ascorbic Acid 500 mg BID GT 12/11/24 10:00 12/22/24 21:18 500 MG Baclofen 20 mg Q6HR GT 12/11/24 12:00 12/23/24 05:19 20 MG Multivitamins 1 tab DAILY GT 12/11/24 10:00 12/22/24 10:16 1 TAB Polyethylene Glycol 17 gm DAILY PO 12/11/24 10:00 12/19/24 09:06 17 GM Lacosamide 150 mg BID GT 12/11/24 10:00 12/22/24 21:18 150 MG Levetiracetam 1,000 mg BID GT 12/11/24 10:00 12/22/24 21:18 1,000 MG Acetaminophen 650 mg Q6HP PRN [place] 12/11/24 09:45 Acetaminophen 650 mg Q6HP PRN PO 12/11/24 10:00 Levalbuterol HCl 0.625 mg Q6HR NEB 12/12/24 00:00 12/23/24 05:52 0.625 MG Ipratropium [place] 0.5 mg Q6HR NEB 12/12/24 00:00 12/23/24 05:52 0.5 MG Enteral Nutritional Formula 1,000 ml 60ML/HR GT 12/13/24 04:15 12/22/24 10:36 1,000 ML Vancomycin HCl 200 ml @ 200 mls/hr Q10H IV 12/22/24 10:00 12/22/24 20:14 200 MLS/HR Enoxaparin Sodium 40 mg DAILY SC 12/23/24 10:00 UNV Pantoprazole Sodium 40 mg DAILY IV 12/23/24 10:00 UNV Laboratory Results Laboratory Tests 12/23/24 05:04 Chemistry Test 12/23/24 05:04 Albumin Pending Calcium Level Pending Total Protein Pending LFT Test 12/23/24 05:04 Alanine Aminotransferase (ALT) Pending Alkaline Phosphatase Pending Aspartate Amino Transferase (AST) Pending Total Bilirubin Pending Urinalysis Test 12/11/24 06:00 12/15/24 02:00 Urine Granular Casts Few /lpf (0) Urine Yeast (Budding) Occasional /hpf (None Urine Color Light-yellow (Yellow) Urine Clarity Clear (Clear) Urine pH 6.0 (5.0-9.0) Urine Specific [place] 1.010 (1.001-1.035) Urine Protein Negative (Negative) Urine Ketones Negative (Negative) Urine Blood 2+ /uL (Negative) H Urine Nitrite Negative (Negative) Urine Bilirubin Negative (Negative) Urine Urobilinogen Normal mg/dL (Negative) Urine Leukocyte Esterase Negative /uL (Negative) Urine RBC 49 /hpf (0 - 3) Urine Microscopic WBC 2 /HPF (0-3) Urine Squamous Epithelial Cells None seen /hpf (<5) Urine Bacteria None seen /hpf (None Seen) Urine Mucus Few (None Seen) Urine Glucose Normal mg/dL (Normal) Microbiology Microbiology Date/Time Source Procedure Growth Status 12/20/24 01:31 Trachea Gram Stain - Final Resulted 12/20/24 01:31 Trachea Respiratory Culture - Preliminary Resulted 12/11/24 06:00 Voided Urine Urine Culture - Final Complete 12/11/24 02:57 Blood Blood Culture - Final NO GROWTH AFTER 5 DAYS OF INCUBATION. Complete Labs and/or images reviewed: Labs reviewed by me, Image(s) reviewed by me Assessment/Plan Assessment/Plan Covering: # Suspected sepsis with lactic acidosis due to suspected aspiration pneumonia # Acute on chronic hypoxic respiratory failure due to suspected aspiration pneumonia, pleural effusion, and compressive atelectasis; sputum cultures growing Gram-positive cocci and Gram-negative rods; chronic ground-glass opacities on imaging # Hypertensive heart disease with chronic diastolic heart failure; not in exacerbation; with a history of endocarditis # Traumatic brain injury status post left craniotomy, status post G-tube, status post tracheostomy; status post PRIVACY SPECIALIST shunt; quadriplegic; nonverbal; bed-bound # 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 # Overweight Received last dose of IV vancomycin in the morning; received last dose of cefepime yesterday Decision regarding continuation of IV antibiotics as per ID and pulmonology Continue oxygen therapy as needed Reviewed the available lab work and imaging studies Urine and blood cultures are negative so far Pending final results of sputum cultures Continue tube feeding as per pull worker Continue monitoring liver and kidney functions Continue tracheostomy care Continue wound prevention care by moving the patient every 2 hours Aspiration and seizures precautions Continue antiseizure medications DVT and GI prophylaxis Late Entry. This medical document was created using an electronic medical record system with computerized dictation system. Although this document has been carefully reviewed, there might still be some phonetic and typographical errors. These areas are purely typographical due to imperfections of the software programs, and do not reflect any compromise in the patient's medical care. Plan discussed with: Other (Mother; nurse) My Orders Orders - LEANDER CUEVA MD Procedure Category Date Status Time Comprehensive LAB 12/23/24 In Process Metabolic Panel 04:00 Enoxaparin Sodium PHA 12/23/24 Logged (Lovenox) 10:00 Pantoprazole PHA 12/23/24 Logged (Protonix) 10:00 Basic Metabolic Panel LAB 12/24/24 Verified 04:00 Seizure Precautions [facility] 12/23/[address] 06:39 Strict Aspiration [facility] 12/23/24 In Process Precautions 06:39 Date of Service: Dec 23, 2024 Billing Provider: LEANDER CUEVA MD Common Visit Codes: [id number] INP/OBS CARE(HIGH) LEANDER CUEVA MD Dec 23, 2024 06:42
[2024-12-23 06:43] LABS: Bilirubin, Total 0.3 mg/dL (0.2-1.0)
[2024-12-23 06:45] LABS: Albumin 3.5 g/dL (3.2-4.8)
[2024-12-23 06:46] LABS: Alanine Aminotransferase 48 U/L (7-40); Blood Urea Nitrogen 6 mg/dL (9-23)
[2024-12-23] MEDS: PANTOPRAZOLE 40 MG/10 ML VIAL INJ IV SCH (09:29)
[2024-12-23] MEDS: ENOXAPARIN SOD 40 MG/0.4 ML SYRINGE SC SCH (09:30)
--- NOTE | 2024-12-23 13:11 | DVHINCON2 ---
Date of service: Dec 22, 2024 Allergies: Coded Allergies: Piperacillin (Verified Adverse Reaction, Intermediate, URTICARIA, 12/11/24) Tazobactam (Verified Adverse Reaction, Intermediate, URTICARIA, 12/11/24) Home Meds Active Scripts Fluconazole (Fluconazole) 200 Mg Tab, 1 TAB PO DAILY for 3 Days, #3 TAB Prov:FLAKO WOODSON RESIDENT 12/09/24 Fluconazole (Fluconazole) 200 Mg Tab, 1 TAB PO DAILY for 3 Days, #3 TAB Prov:FLAKO WOODSON RESIDENT 12/09/24 Reported Medications Levetiracetam (Keppra) 1,000 Mg Tab, 10 LIQ PO BID, #60 TAB 5 Refills 11/14/24 Amino Acids-Protein Hydrolysat (PRO-STAT) Liq, 30 ML OR DAILY, LIQ 11/14/24 Zinc Sulfate (Zinc Sulfate) 220 Mg Cap, 50 MG GT DAILY for 30 Days, MG 11/14/24 Potassium Chloride (POTASSIUM CHLORIDE CR) 10 Meq Tb, 20 MEQ GT DAILY, TAB 11/14/24 Multiple Vitamin (Multivitamins) Tab, 1 TAB GT DAILY, #30 TAB 2 Refills 11/14/24 Lorazepam (ATIVAN TABLET) 0.5 Mg Tb, 0.5 MG GT Q6HPRN PRN for SHORTNESS OF BREATH, TAB 11/14/24 Levalbuterol HCl (Levalbuterol) 1.25 Mg/0.5 Ml Neb, 1.25 MG IN Q4HP PRN for WHEEZING, INH 11/14/24 Lacosamide (Lacosamide) 150 Mg Tab, 150 MG GT BID, TAB 11/14/24 Loratadine (Claritin) 10 Mg Tab, 1 TAB PO DAILY for ALLERGIES, #30 TAB 5 Refills 11/14/24 Ipratropium-Albuterol (Ipratropium [place]/Albut) 1 Trace Trace, 1 TRACE IN Q6HPRN PRN for respiratory failure, ML 11/14/24 Glycopyrrolate (CUVPOSA) 1 Mg/5 Ml Trace, 1 MG PO Q8HPRN PRN for increased secretions, ML 11/14/24 Polyethylene Glycol 3350 (Miralax) 17 Gm Pow, 17 GM PO 3XW, POW 11/14/24 Chlorhexidine Gluconate (Mouth (CHLORHEXIDINE ORAL RINSE) 473 Ml So, 15 ML MT Q12HR, ML 11/14/24 Acetylcysteine (Acetylcysteine) 20 % Trace, 1 ML IN Q4HP PRN for thick secretions, ML 11/14/24 Diphenhydramine Hcl (Benadryl Allergy) 25 Mg Cap, 25 MG PO Q8HPRN PRN for allergies, CAP 11/14/24 Ascorbic Acid (VITAMIN C TABLET) 500 Mg Tb, 1 TAB GT BID, #60 TAB 11/14/24 Baclofen (Baclofen) 10 Mg Tab, 20 MG GT Q6HR for 30 Days, MG 11/14/24 Current Medications Current Medications Medications (Trade) Dose Ordered Sig/Ata Route PRN Reason Start Time Stop Time Status Last Admin Enoxaparin Sodium (Lovenox) 40 mg DAILY SC 12/23/24 10:00 12/23/24 09:30 Pantoprazole Sodium (Protonix) 40 mg DAILY IV 12/23/24 10:00 12/23/24 09:29 Vancomycin HCl 200 ml @ 200 mls/hr Q10H IV 12/23/24 16:00 UNV Vital Signs Vital Signs Date Time Temp Pulse Resp B/P (MAP) Pulse Ox O2 Delivery O2 Flow Rate FiO2 12/23/24 12:52 98.1 83 18 129/79 (96) 98 98.1 12/23/24 11:13 Trach Collar 6 N/A T-piece Labs/Diagnostic Data Labs Test 12/23/24 05:04 12/15/24 06:25 12/15/24 02:00 12/11/24 06:00 Range/Units White Blood Count 8.1 4.4-10.8 10^3/uL Red Blood Count 4.82 4.5-5.90 10^6/uL Hemoglobin 14.3 13.5-17.5 g/dL Hematocrit 40.8 L 41.0-53.0 % Mean Corpuscular Volume 84.7 80.0-100.0 fL Mean Corpuscular Hemoglobin 29.7 28.0-32.0 pg Mean Corpuscular Hemoglobin Concent 35.1 32.0-36.0 g/dL Red Cell Distribution Width 14.9 H 11.8-14.3 % Platelet Count 212 140-450 10^3/uL Mean Platelet Volume 8.5 6.9-10.8 fL Neutrophils (%) (Auto) 58.9 37.0-80.0 % Lymphocytes (%) (Auto) 28.0 10.0-50.0 % Monocytes (%) (Auto) 9.8 0.0-12.0 % Eosinophils (%) (Auto) 2.2 0.0-7.0 % Basophils (%) (Auto) 1.1 0.0-2.0 % Neutrophils # (Auto) 4.8 1.6-8.6 10 ^3/uL Lymphocytes # (Auto) 2.3 0.4-5.4 10 ^3/uL Monocytes # (Auto) 0.8 0-1.3 10 ^3/uL Eosinophils # (Auto) 0.2 0-0.8 10 ^3/uL Basophils # (Auto) 0.1 0-0.2 10 ^3/uL Nucleated Red Blood Cells 0.2 % Sodium Level 142 136-145 mmol/L Potassium Level 3.9 3.5-5.1 mmol/L Chloride Level 107 98-107 mmol/L Carbon Dioxide Level 26 20-31 mmol/L Anion Gap 9 5-15 Blood Urea Nitrogen 6 L 9-23 mg/dL Creatinine 0.50 L 0.700-1.30 mg/dL Glomerular Filtration Rate Calc 125 >90 mL/min BUN/Creatinine Ratio 12.0 10.0-20.0 Serum Glucose 93 74-106 mg/dL Calcium Level 9.2 8.7-10.4 mg/dL Total Bilirubin 0.3 0.2-1.0 mg/dL Aspartate Amino Transferase (AST) 39 13-40 U/L Alanine Aminotransferase (ALT) 48 H 7-40 U/L Alkaline Phosphatase 94 46-116 U/L Total Protein 5.9 5.7-8.2 g/dL Albumin 3.5 3.2-4.8 g/dL Vancomycin Level Trough 16.2 H 5-10 ug/mL Prothrombin Time 10.3 9.3-11.8 sec Prothrombin Time INR 0.97 0.9-1.15 Activated Partial Thromboplast Time 29.1 24.5-34.5 SEC Urine Color Light-yellow Yellow Urine Clarity Clear Clear Urine pH 6.0 5.0-9.0 Urine Specific [place] 1.010 1.001-1.035 Urine Protein Negative Negative Urine Ketones Negative Negative Urine Blood 2+ H Negative /uL Urine Nitrite Negative Negative Urine Bilirubin Negative Negative Urine Urobilinogen Normal Negative mg/dL Urine Leukocyte Esterase Negative Negative /uL Urine RBC 49 0 - 3 /hpf Urine Microscopic WBC 2 0-3 /HPF Urine Squamous Epithelial Cells None seen <5 /hpf Urine Bacteria None seen None Seen /hpf Urine Mucus Few None Seen Urine Glucose Normal Normal mg/dL Urine Granular Casts Few 0 /lpf Urine Yeast (Budding) Occasional None Seen /hpf Test 12/11/24 04:40 12/11/24 02:25 Range/Units Lactic Acid Level 1.6 0.4-2.0 mmol/L Blood Gas Specimen Type Arterial Blood Gas Sample Site Right radial Blood Gas Patient Temperature 37.0 Arterial Blood Date Drawn [id number] Arterial Blood pH 7.483 H 7.350-7.450 Arterial Blood Partial Pressure CO2 31.5 L 35.0-48.0 mmHg Arterial Blood Partial Pressure O2 64.8 L 83.0-108.0 mmHg Arterial Blood HCO3 23.1 21.0-28.0 mmol/L Arterial Blood Oxygen Saturation 93.9 L 94.0-98.0 % Arterial Blood Base Excess 0.7 -2.0-3.0 mmol/L Arterial Blood Oxyhemoglobin 91.9 L 94.0-98.0 % Arterial Blood Carboxyhemoglobin 1.3 0.5-1.5 % Arterial Blood Methemoglobin 0.8 0.0-1.5 % José Miguel Test Modified Blood Gas Total Hemoglobin 17.10 13.5-17.5 g/dL Blood Gas Liter Flow 8.00 Blood Gas Modality Cool aerosol FiO2 % 30.0 Microbiology Date/Time Source Procedure Growth Status 12/20/24 01:31 Trachea Gram Stain - Final Resulted 12/20/24 01:31 Trachea Respiratory Culture - Preliminary Resulted 12/11/24 06:00 Voided Urine Urine Culture - Final Complete 12/11/24 02:57 Blood Blood Culture - Final NO GROWTH AFTER 5 DAYS OF INCUBATION. Complete Problems(with codes): (1) Aspiration into airway (2) Traumatic brain injury (3) Status post seizure (4) Sepsis (5) Metabolic encephalopathy Plan/Recommendation ASSESSMENT AND PLAN: ID Problem List: \-- Recurrent aspiration and aspiration pneumonia \-- Multidrug-resistant pseudomonal and Enterobacter infections \-- Traumatic brain injury, nonverbal, post-tracheostomy and PEG \-- Chronically bedbound with sacral ulcer \-- History of endocarditis (diagnosed 2013) \-- Seizure disorder Assessment Mr. Molina is a 49-year-old male with a significant past medical history of traumatic brain injury with nonverbal status, chronic tracheostomy, percutaneous gastrostomy tube, seizure disorder, history of endocarditis in 2033, and multiple prior admissions for sepsis and pneumonia. He is chronically bedbound. The patient presents with shortness of breath. On admission, he was febrile to 102F and was requiring 8L O2 via trach collar. Initial blood pressure was 132/73, pulse 115, respiratory rate 23, and lactic acid 1.6. He also has a history of recurrent aspiration and multidrug-resistant respiratory pathogens. During this admission, he was started empirically on vancomycin and Zosyn, though he has a documented Zosyn allergy; however, no reaction was observed during this hospitalization. Chest X-ray showed no acute disease but diminished lung volumes. CT chest, abdomen, and pelvis revealed trace bilateral pleural effusions, diffuse bilateral ground glass opacities, cardiomegaly with trace pericardial effusion, cholelithiasis, nonobstructive right nephrolithiasis, small pelvic ascites, and a ventriculoperitoneal shunt. Sputum culture growing gram-negative rods, likely resistant organism. He has been afebrile except for fevers on admission, remains oxygen-dependent but has weaned to 6L trach collar. No ongoing signs of sepsis or persistent pneumonia; WBC and clinical trajectory stable. Sacral ulcer is present, with blanching erythema but without open wound; managed with wound care and regular repositioning. Plan: \-- Discontinue antibiotics; no evidence of ongoing or persistent infection at this time \-- Monitor closely for new/worsening fever, rising WBC, increased sputum, or escalating oxygen requirements \-- If clinical deterioration or new signs of infection, consider Zerbaxa for 7 days given history of multidrug resistance \-- Maintain strict aspiration precautions, mindful of ongoing aspiration risk due to PEG and neurologic impairment \-- Continue sacral ulcer care and frequent repositioning to prevent pressure injury progression \-- Continue seizure precautions and routine monitoring \-- Echocardiogram and LEYDI negative for ongoing endocarditis \-- Monitor laboratory trends and reassess clinically Isolation Precautions: Standard \*Assessment and plan was discussed with the patient as written above (by proxy, if patient unable to participate). \*Plan is subject to change pending incorporation of new incoming information/diagnostics. Updates may be added as addendum at the bottom (OR TOP) of this note. Thank you for interesting consult. ID will continue to follow. Please contact Infectious Disease for any questions or concerns. Edgard Velasco M.D. [facility] Ph: ? Teams text: [email or web address] Electronically signed by: Edgard Velasco MD, 12/22/2024 \ History: The patient's chart and medications were reviewed in detail and the patient was seen and examined. History obtained from: chart and treating providers (patient nonverbal). Mr. Molina is a 49-year-old male with traumatic brain injury, chronic tracheostomy and percutaneous PEG tube, seizure disorder, and chronic nonverbal status, presenting with shortness of breath. Recent fevers on admission, oxygen- dependent with escalation and subsequent weaning. No persistent fever, chills, or evidence of ongoing infection during current hospitalization. Chronic aspiration risk, bedbound status, sacral pressure ulcer under treatment. Review of Systems: A complete 10-system review of systems was completed and negative except as noted in the HPI or here. ROS: -CONSTITUTIONAL: Denies weight loss, fever, chills (except for fever at admission). -HEENT: Not discussed. -RESPIRATORY: Admitted for shortness of breath. No cough or persistent fevers currently. -CV: No chest pain or palpitations reported. -GI: No abdominal pain, nausea, vomiting, or diarrhea. -: Not discussed. -MSK: Not discussed. -SKIN: No diffuse rash. Sacral area with blanching erythema. No additional rashes reported. -NEUROLOGICAL: Baseline nonverbal status, history of seizure disorder, mentation waxes and wanes chronically, no mention of acute changes. -PSYCHIATRIC: Not discussed. Past Medical History: Diagnosis Date Traumatic brain injury with chronic nonverbal status, post-tracheostomy, and PEG Seizure disorder Endocarditis (diagnosed 2033) Recurrent aspiration and aspiration pneumonia Multidrug-resistant respiratory infections Past Surgical History: History reviewed. Tracheostomy and percutaneous gastrostomy tube placement. Ventriculoperitoneal shunt present. Home Medications: Not provided in transcript. Allergies: Zosyn documented allergy (tolerated during current admission without reaction). Other allergies not discussed. Family History: Not discussed. Family Status: Not discussed. Social History: -Tobacco use: Not discussed. -Alcohol use: Not discussed. -Drug use: Not discussed. -Sexual activity: Not discussed. Other topics: Not discussed. Social Determinants of Health: Not discussed. Objective: Vital Signs on Arrival: Temp: 99.8 F BP: 132/73 Pulse: 115 Resp: 23 SpO2: Not specified Most Recent Vital Signs: Not provided in transcript. Admission Weight: Not provided in transcript. Physical Exam: General: NAD Neck: Supple. No masses. HEENT: PERRL. Normal lids and conjunctiva. Moist mucous membranes. Oropharynx without lesions, exudates or excessive erythema. Normal appearance of the external aspects of the nose and ears. Heart: Regular rhythm, normal rate. No murmur. No lower extremity edema. Lungs: Normal respiratory effort. Clear to auscultation bilaterally. No wheezes. No crackles. Abdomen: Soft. Non-tender. Non-distended. No masses or abdominal hernia. Msk: No digital cyanosis. Normal strength and tone in all 4 limbs Skin: Warm and dry, no rashes. Blanching erythema over sacrum, no open wounds. Neuro: Alert. No facial droop or slurred speech. Extra-ocular movements intact. Sensation intact to soft touch in all 4 limbs. Psych: Appropriate mood. Full affect. Oriented to person, place, time, and situation. Lines: Active Lines \-- Tracheostomy \-- El catheter \-- PEG tube \-- Ventriculoperitoneal shunt Diagnostic Studies: Available diagnostic studies were reviewed personally. Significant relevant results and findings are outlined below or addressed in the Assessment and Plan above. Pertinent Imaging: Recent Results Chest X-ray: \-- No acute disease. Diminished lung volumes. CT Chest/Abdomen/Pelvis (12/18): \-- Trace bilateral pleural effusions and diffuse bilateral ground glass opacities. \-- Cardiomegaly with trace pericardial effusion. \-- Cholelithiasis, nonobstructive right nephrolithiasis. \-- Percutaneous gastrostomy, ventriculoperitoneal shunt, tracheostomy, small pelvic ascites, El catheter. Echocardiogram/LEYDI: \-- No evidence of ongoing endocarditis. Sputum culture: \-- Growing gram-negative rods (likely resistant organism). If additional studies/results are obtained, updates will be provided as needed. Plan discussed with: Patient EDGARD VELASCO MD Dec 23, 2024 13:11
--- NOTE | 2024-12-23 13:26 | DVHPN2 ---
Consult Progress Note Date Seen: Dec 23, 2024 Subjective Patient reports: Other (stable on 6 liters nasal canula , patients states patient to have poor appetite and weight loss . no fevers since admission ) Objective vital signs Vital Sign Date Time Temp Pulse Resp B/P (MAP) Pulse Ox O2 Delivery O2 Flow Rate FiO2 12/23/24 12:52 98.1 83 18 129/79 (96) 98 98.1 12/23/24 11:13 Trach Collar 6 N/A T-piece Total Intake and Output 12/22/24 12/22/24 12/23/24 15:00 23:00 07:00 Intake Total 250 ml 0 ml 2160 ml Output Total 1950 ml 2000 ml Balance 250 ml -1950 ml 160 ml medications Current Medications Medications Dose Ordered Sig/Ata Route Start Time Stop Time Status Last Admin Dose Admin Sodium Chloride 1,000 ml @ 120 mls/hr Q8H20M IV 12/11/24 09:56 12/23/24 05:17 120 MLS/HR Ondansetron HCl 4 mg Q4HP PRN IV 12/11/24 08:45 Nitroglycerin 0.4 mg Q5MINP PRN SL 12/11/24 08:45 Ascorbic Acid 500 mg BID GT 12/11/24 10:00 12/23/24 09:29 500 MG Baclofen 20 mg Q6HR GT 12/11/24 12:00 12/23/24 11:10 20 MG Multivitamins 1 tab DAILY GT 12/11/24 10:00 12/23/24 09:29 1 TAB Polyethylene Glycol 17 gm DAILY PO 12/11/24 10:00 12/19/24 09:06 17 GM Lacosamide 150 mg BID GT 12/11/24 10:00 12/23/24 09:29 150 MG Levetiracetam 1,000 mg BID GT 12/11/24 10:00 12/23/24 09:29 1,000 MG Acetaminophen 650 mg Q6HP PRN NV 12/11/24 09:45 Acetaminophen 650 mg Q6HP PRN PO 12/11/24 10:00 Levalbuterol HCl 0.625 mg Q6HR NEB 12/12/24 00:00 12/23/24 11:13 0.625 MG Ipratropium [place] 0.5 mg Q6HR NEB 12/12/24 00:00 12/23/24 11:13 0.5 MG Enteral Nutritional Formula 1,000 ml 60ML/HR GT 12/13/24 04:15 12/22/24 10:36 1,000 ML Enoxaparin Sodium 40 mg DAILY SC 12/23/24 10:00 12/23/24 09:30 40 MG Pantoprazole Sodium 40 mg DAILY IV 12/23/24 10:00 12/23/24 09:29 40 MG Vancomycin HCl 200 ml @ 200 mls/hr Q10H IV 12/23/24 16:00 UNV Physical Exam: General: NAD Neck: Supple. No masses. HEENT: PERRL. Normal lids and conjunctiva. Moist mucous membranes. Oropharynx without lesions, exudates or excessive erythema. Normal appearance of the external aspects of the nose and ears. Heart: Regular rhythm, normal rate. No murmur. No lower extremity edema. Lungs: Normal respiratory effort. Clear to auscultation bilaterally. No wheezes. No crackles. Abdomen: Soft. Non-tender. Non-distended. No masses or abdominal hernia. Msk: No digital cyanosis. Normal strength and tone in all 4 limbs Skin: Warm and dry, no rashes. Blanching erythema over sacrum, no open wounds. Neuro: Alert. No facial droop or slurred speech. Extra-ocular movements intact. Sensation intact to soft touch in all 4 limbs. Psych: Appropriate mood. Full affect. Oriented to person, place, time, and situation. laboratory and microbiology Laboratory Tests 12/23/24 05:04 Test 12/23/24 05:04 Range/Units Serum Glucose 93 74-106 mg/dL Problem List/Assessment/Plan Problems(with codes): (1) Status post seizure (2) Metabolic encephalopathy (3) Traumatic brain injury (4) Aspiration into airway (5) Sepsis Problem List/Assessment/Plan ASSESSMENT AND PLAN: ID Problem List: \-- Recurrent aspiration and aspiration pneumonia \-- Multidrug-resistant pseudomonal and Enterobacter infections \-- Traumatic brain injury, nonverbal, post-tracheostomy and PEG \-- Chronically bedbound with sacral ulcer \-- History of endocarditis (diagnosed 2013) \-- Seizure disorder Assessment Mr. Molina is a 49-year-old male with a significant past medical history of traumatic brain injury with nonverbal status, chronic tracheostomy, percutaneous gastrostomy tube, seizure disorder, history of endocarditis in 2033, and multiple prior admissions for sepsis and pneumonia. He is chronically bedbound. The patient presents with shortness of breath. On admission, he was febrile to 102F and was requiring 8L O2 via trach collar. Initial blood pressure was 132/73, pulse 115, respiratory rate 23, and lactic acid 1.6. He also has a history of recurrent aspiration and multidrug-resistant respiratory pathogens. During this admission, he was started empirically on vancomycin and Zosyn, though he has a documented Zosyn allergy; however, no reaction was observed during this hospitalization. Chest X-ray showed no acute disease but diminished lung volumes. CT chest, abdomen, and pelvis revealed trace bilateral pleural effusions, diffuse bilateral ground glass opacities, cardiomegaly with trace pericardial effusion, cholelithiasis, nonobstructive right nephrolithiasis, small pelvic ascites, and a ventriculoperitoneal shunt. Sputum culture growing gram-negative rods, likely resistant organism. He has been afebrile except for fevers on admission, remains oxygen-dependent but has weaned to 6L trach collar. No ongoing signs of sepsis or persistent pneumonia; WBC and clinical trajectory stable. Sacral ulcer is present, with blanching erythema but without open wound; managed with wound care and regular repositioning. 12/23: awaiting sputum culture results , Ct chest abdomen and pelvis was alrgely unremarkable except for diffuse oppacities in the lungs bilaterally Plan: \-- Monitor closely for new/worsening fever, rising WBC, increased sputum, or escalating oxygen requirements \-- If clinical deterioration or new signs of infection, consider Zerbaxa for 7 days given history of multidrug resistance \-- Maintain strict aspiration precautions, mindful of ongoing aspiration risk due to PEG and neurologic impairment \-- Continue sacral ulcer care and frequent repositioning to prevent pressure injury progression \-- Continue seizure precautions and routine monitoring \-- Echocardiogram and LEYDI negative for ongoing endocarditis \-- Monitor laboratory trends and reassess clinically Isolation Precautions: Standard Plan discussed with: Other Dietary Evaluation Review Comments: 1. Recommend peptide based TF Pivot 1.5Cal @45ml/hr providing 101g protein 1620kcal supporting pt's protein needs @120% and energy needs @93%. 2. Reassess when pt passes [employer] eval and able to have PO feedings Expected Outcomes/Goals: prevent wt loss, improve nutrition status EDGARD JOHNSON MD Dec 23, 2024 13:26
[2024-12-23] MEDS ORDERED: VANCOMYCIN 1GM/200ML PM 200 ML IV SCH (16:00)
--- NOTE | 2024-12-23 22:39 | DVHPN2 ---
Progress Note - Dictate Date Seen: Dec 23, 2024 Medical Necessity Reason Pt with a Central, PICC or Fol: Yes The following are medically ne: Willis Catheter Reason for willis catheter: Strict I&O Subjective [facility] Patient seen and examined at bedside. Remains on supplemental oxygen via trach Overnight events reviewed. vital signs Vital Sign Date Time Temp Pulse Resp B/P (MAP) Pulse Ox O2 Delivery O2 Flow Rate FiO2 12/23/24 20:38 87 18 100 12/23/24 20:28 T-piece 7.0 12/23/24 20:28 28 28 12/23/24 16:36 98.9 120/67 (84) 98.9 Total Intake and Output 12/22/24 12/22/24 12/23/24 15:00 23:00 07:00 Intake Total 250 ml 0 ml 2160 ml Output Total 1950 ml 2000 ml Balance 250 ml -1950 ml 160 ml medications Current Medications Medications Dose Ordered Sig/Ata Route Start Time Stop Time Status Last Admin Dose Admin Sodium Chloride 1,000 ml @ 120 mls/hr Q8H20M IV 12/11/24 09:56 12/23/24 21:12 120 MLS/HR Ondansetron HCl 4 mg Q4HP PRN IV 12/11/24 08:45 Nitroglycerin 0.4 mg Q5MINP PRN SL 12/11/24 08:45 Ascorbic Acid 500 mg BID GT 12/11/24 10:00 12/23/24 21:11 500 MG Baclofen 20 mg Q6HR GT 12/11/24 12:00 12/23/24 17:11 20 MG Multivitamins 1 tab DAILY GT 12/11/24 10:00 12/23/24 09:29 1 TAB Polyethylene Glycol 17 gm DAILY PO 12/11/24 10:00 12/19/24 09:06 17 GM Lacosamide 150 mg BID GT 12/11/24 10:00 12/23/24 21:11 150 MG Levetiracetam 1,000 mg BID GT 12/11/24 10:00 12/23/24 21:11 1,000 MG Acetaminophen 650 mg Q6HP PRN [place] 12/11/24 09:45 Acetaminophen 650 mg Q6HP PRN PO 12/11/24 10:00 Levalbuterol HCl 0.625 mg Q6HR NEB 12/12/24 00:00 12/23/24 20:28 0.625 MG Ipratropium [place] 0.5 mg Q6HR NEB 12/12/24 00:00 12/23/24 20:25 0.5 MG Enteral Nutritional Formula 1,000 ml 60ML/HR GT 12/13/24 04:15 12/22/24 10:36 1,000 ML Enoxaparin Sodium 40 mg DAILY SC 12/23/24 10:00 12/23/24 09:30 40 MG Pantoprazole Sodium 40 mg DAILY IV 12/23/24 10:00 12/23/24 09:29 40 MG Vancomycin HCl 200 ml @ 200 mls/hr Q10H IV 12/23/24 16:00 UNV Acetylcysteine 200 mg Q8HR NEB 12/23/24 22:00 12/26/24 21:59 objective Gen.: Patient lying in bed in no apparent distress. On supplemental oxygen via trach Head: Normocephalic, atraumatic. Eyes: EOMI/PERRLA. Ears: Normal hearing. Normal anatomy. Neck/trachea: Trach in place. Nose: Normal external anatomy. Mouth: Moist mucous membranes. Chest: Decreased air entry bilaterally. No wheezing or rhonchi. Cardiovascular: Positive S1, positive S2. Regular rate and rhythm. Abdomen: Positive bowel sounds in all 4 quadrants. Soft, non-tender, non- distended. : Deferred. Rectal: Deferred. Skin: Warm, dry. Intact. Extremities: 2+ radial pulses bilaterally. No lower extremity edema. Neuro: Awake, alert, oriented x3. Nonverbal at baseline. No gross motor or sensory deficits. Cranial nerves II through XII intact. Quadriplegia. laboratory and microbiology Laboratory Tests 12/23/24 05:04 Test 12/23/24 05:04 Range/Units Serum Glucose 93 74-106 mg/dL Assessment/Plan Impression: Chronic hypoxic respiratory failure S/p tracheostomy Pleural effusion, trace Compressive atelectasis GGO on imaging S/p ventriculoperitoneal shunt Ascites Overweight, BMI 28.5 Events: Remains on supplemental oxygen On 6 LPM humidified air via trach Pt with thick yellow sputum Afebrile. No overnight events. Continue trach care Continue bronchodilators/Mucomyst Chest physiotherapy Completed antibiotics Head of bed elevation Aspiration precautions Patient is NPO Tube feeds for nutritional support Continue Lovenox for DVT ppx CXR on 12/20 showed no significant change; notable for congestion, low lung volumes, cardiomegaly, Labs and imaging reviewed. Rest of plan as noted below. Plan: Supplemental oxygen On 6 liters via T-piece Titrate to keep O2 sats above 92%. Trach care per RT Pulmonary toileting Continue bronchodilators. Completed antibiotics Monitor renal function. Monitor electrolytes. Supplement as necessary. Monitor ins and outs. Wound care. DVT prophylaxis - Lovenox. CT chest, abdomen and pelvis on 12/17/24 revealed trace bilateral pleural effusions, bibasilar atelectasis and diffuse bilateral ground-glass opacity. Cardiomegaly and trace pericardial effusion. Cholelithiasis. Nonobstructive right nephrolithiasis. Percutaneous gastrostomy. Ventriculoperitoneal shunt. Tracheostomy. Small volume pelvic ascites. Labs and imaging reviewed. Prognosis: Poor given patient's multiple co-morbidities. Rest of plan per hospitalist and other consultants. Thank you, Dr. Kothari, for allowing me to participate in this patient's care. Further recommendations will depend on the patient's clinical course. Please do not hesitate to contact me if you have any questions or concerns. This medical document was created using an electronic medical record system with [employer] dictation system. Although these documentations are being carefully reviewed, there may still be some phonetic and typographical changes. The errors are purely typographical, due to imperfection on the software program, and do not reflect any compromise in the patient's medical care. Dietary Evaluation Review Comments: 1. Recommend peptide based TF Pivot 1.5Cal @45ml/hr providing 101g protein 1620kcal supporting pt's protein needs @120% and energy needs @93%. 2. Reassess when pt passes HEAD KILN OPERATOR eval and able to have PO feedings Expected Outcomes/Goals: prevent wt loss, improve nutrition status Plan discussed with: Patient, Other (CRYSTAL Martines) HOMERO PENA MD Dec 23, 2024 22:39
[2024-12-24] VITALS (19 sets, daily range): BP systolic 117–132; BP diastolic 62–73; PULSE 67–96; RESP 16–34; TEMP 97.8–99; O2SAT 92–100
[2024-12-24] MEDS: ACETYLCYSTEINE 20%(200MG/ML) SOL 4ML NEB SCH (00:35)
[2024-12-24 07:42] LABS: Potassium 4.0 mmol/L (3.5-5.1); Sodium 142 mmol/L (136-145)
[2024-12-24 07:43] LABS: Anion Gap 8 (5-15); Carbon Dioxide 26 mmol/L (20-31)
[2024-12-24 07:44] LABS: Calcium 8.8 mg/dL (8.7-10.4)
[2024-12-24 07:46] LABS: Chloride 108 mmol/L (98-107)
[2024-12-24 07:48] LABS: BUN/Creatinine Ratio 18.8 (10.0-20.0); Glucose 102 mg/dL (74-106)
[2024-12-24 07:53] LABS: Blood Urea Nitrogen 9 mg/dL (9-23)
--- NOTE | 2024-12-24 14:42 | DVHPN2 ---
Subjective The patient is nonverbal; still on 6 L/min oxygen therapy; continues running low-grade fever at 99.4 Reviewed: Care Plan, H&P, Labs, Medications, Previous Orders, Radiology, Other (Consultations) Changes from previous H/P or p: No Changes Objective Vitals Vital Signs Date Time Temp Pulse Resp B/P (MAP) Pulse Ox O2 Delivery O2 Flow Rate FiO2 12/24/24 13:09 80 18 95 12/24/24 13:01 T-piece 6.0 12/24/24 13:01 28 28 12/24/24 13:00 98.3 125/66 (85) 98.3 Intake/Output Intake and Output 12/24/24 07:00 Intake Total 200 ml Output Total 3400 ml Balance -3200 ml Intake Oral 0 ml IV Total 200 ml Output Urine Total 3400 ml # Bowel Movements 2 General Appearance: No acute distress, Other (Nonverbal) HEENT: Other (Left scalp deformity from previous craniotomy/traumatic brain injury) Neck: Other (Tracheostomy in place) Lungs: Other (Few crackles bilateral lungs basis) Cardiovascular: Regular rate, Normal S1, Normal S2 Abdomen: Normal bowel sounds, Soft, Other (G-tube in place) Genitourinary: Other (El's in place) Musculoskeletal: Other (Contracted And muscle wasting) Extremities: No edema Neuro: Other (Quadriplegic; nonverbal) Skin: Other (Refer to nursing documentation) Psych/Mental Status: Other (Nonverbal) Medications Current Medications Medications Dose Ordered Sig/Ata Route Start Time Stop Time Status Last Admin Dose Admin Sodium Chloride 1,000 ml @ 120 mls/hr Q8H20M IV 12/11/24 09:56 12/24/24 06:45 120 MLS/HR Ondansetron HCl 4 mg Q4HP PRN IV 12/11/24 08:45 Nitroglycerin 0.4 mg Q5MINP PRN SL 12/11/24 08:45 Ascorbic Acid 500 mg BID GT 12/11/24 10:00 12/24/24 09:38 500 MG Baclofen 20 mg Q6HR GT 12/11/24 12:00 12/24/24 12:31 20 MG Multivitamins 1 tab DAILY GT 12/11/24 10:00 12/24/24 09:38 1 TAB Polyethylene Glycol 17 gm DAILY PO 12/11/24 10:00 12/19/24 09:06 17 GM Lacosamide 150 mg BID GT 12/11/24 10:00 12/24/24 09:38 150 MG Levetiracetam 1,000 mg BID GT 12/11/24 10:00 12/24/24 09:38 1,000 MG Acetaminophen 650 mg Q6HP PRN [place] 12/11/24 09:45 Acetaminophen 650 mg Q6HP PRN PO 12/11/24 10:00 Levalbuterol HCl 0.625 mg Q6HR NEB 12/12/24 00:00 12/24/24 13:01 0.625 MG Ipratropium [place] 0.5 mg Q6HR NEB 12/12/24 00:00 12/24/24 13:00 0.5 MG Enteral Nutritional Formula 1,000 ml 60ML/HR GT 12/13/24 04:15 12/22/24 10:36 1,000 ML Enoxaparin Sodium 40 mg DAILY SC 12/23/24 10:00 12/24/24 09:38 40 MG Pantoprazole Sodium 40 mg DAILY IV 12/23/24 10:00 12/24/24 09:38 40 MG Vancomycin HCl 200 ml @ 200 mls/hr Q10H IV 12/23/24 16:00 UNV Acetylcysteine 200 mg Q8HR NEB 12/23/24 22:00 12/26/24 21:59 12/24/24 13:01 200 MG Laboratory Results Laboratory Tests 12/23/24 05:04 12/24/24 07:07 Chemistry Test 12/24/24 07:07 Calcium Level 8.8 mg/dL (8.7-10.4) Urinalysis Test 12/11/24 06:00 12/15/24 02:00 Urine Granular Casts Few /lpf (0) Urine Yeast (Budding) Occasional /hpf (None Urine Color Light-yellow (Yellow) Urine Clarity Clear (Clear) Urine pH 6.0 (5.0-9.0) Urine Specific [place] 1.010 (1.001-1.035) Urine Protein Negative (Negative) Urine Ketones Negative (Negative) Urine Blood 2+ /uL (Negative) H Urine Nitrite Negative (Negative) Urine Bilirubin Negative (Negative) Urine Urobilinogen Normal mg/dL (Negative) Urine Leukocyte Esterase Negative /uL (Negative) Urine RBC 49 /hpf (0 - 3) Urine Microscopic WBC 2 /HPF (0-3) Urine Squamous Epithelial Cells None seen /hpf (<5) Urine Bacteria None seen /hpf (None Seen) Urine Mucus Few (None Seen) Urine Glucose Normal mg/dL (Normal) Microbiology Microbiology Date/Time Source Procedure Growth Status 12/20/24 01:31 Trachea Gram Stain - Final Resulted 12/20/24 01:31 Respiratory Culture - Preliminary Escherichia coli - ESBL Citrobacter koseri Resulted 12/11/24 06:00 Voided Urine Urine Culture - Final Complete 12/11/24 02:57 Blood Blood Culture - Final NO GROWTH AFTER 5 DAYS OF INCUBATION. Complete Labs and/or images reviewed: Labs reviewed by me, Image(s) reviewed by me Assessment/Plan Assessment/Plan Covering: # Suspected sepsis with lactic acidosis due to suspected aspiration pneumonia; sputum culture grew ESBL E coli # Acute on chronic hypoxic respiratory failure due to suspected aspiration pneumonia, pleural effusion, and compressive atelectasis; chronic ground-glass opacities on imaging # Hypertensive heart disease with chronic diastolic heart failure; not in exacerbation; with a history of endocarditis # Traumatic brain injury status post left craniotomy, status post G-tube, status post tracheostomy; status post CHIEF KNOWLEDGE OFFICER shunt; quadriplegic; nonverbal; bed-bound # 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 # Overweight Received last dose of IV vancomycin 12/23/2024; received last dose of cefepime 12/22/2024 Decision regarding continuation of IV antibiotics as per ID and pulmonology Continue oxygen therapy as needed Reviewed the available lab work and imaging studies Urine and blood cultures are negative so far ESBL E coli was the final results of sputum cultures; pending decision from ID regarding antibiotics Continue tube feeding as per shank scourer Continue monitoring liver and kidney functions Continue tracheostomy care Continue wound prevention care by moving the patient every 2 hours Continue chest percussion therapy Aspiration and seizures precautions Continue antiseizure medications DVT and GI prophylaxis Late Entry. This medical document was created using an electronic medical record system with computerized dictation system. Although this document has been carefully reviewed, there might still be some phonetic and typographical errors. These areas are purely typographical due to imperfections of the software programs, and do not reflect any compromise in the patient's medical care. Plan discussed with: Other (Mother; nurse) My Orders Orders - LEANDER CUEVA MD Procedure Category Date Status Time Communication Order ORDERS 12/23/24 Transmitted 16:36 Communication Order ORDERS 12/24/24 Transmitted 09:08 * Infectious Viv- Dr. MCGARRY 12/24/24 Transmitted Carolyn Velasco 09:08 Date of Service: Dec 24, 2024 Billing Provider: LEANDER CUEVA MD Common Visit Codes: [id number] INP/OBS CARE(HIGH) LEANDER CUEVA MD Dec 24, 2024 14:42
--- NOTE | 2024-12-24 23:21 | DVHPN2 ---
Progress Note - Dictate Date Seen: Dec 24, 2024 Medical Necessity Reason Pt with a Central, PICC or Fol: Yes The following are medically ne: Willis Catheter Reason for willis catheter: Strict I&O Subjective [facility] Patient seen and examined at bedside. Remains on supplemental oxygen via trach Overnight events reviewed. vital signs Vital Sign Date Time Temp Pulse Resp B/P (MAP) Pulse Ox O2 Delivery O2 Flow Rate FiO2 12/24/24 21:53 79 18 97 12/24/24 21:48 T-piece 6.0 12/24/24 21:48 28 28 12/24/24 21:00 98.7 123/73 (90) 98.7 Total Intake and Output 12/23/24 12/23/24 12/24/24 15:00 23:00 07:00 Intake Total 200 ml 0 ml 0 ml Output Total 1650 ml 1750 ml Balance 200 ml -1650 ml -1750 ml medications Current Medications Medications Dose Ordered Sig/Ata Route Start Time Stop Time Status Last Admin Dose Admin Sodium Chloride 1,000 ml @ 120 mls/hr Q8H20M IV 12/11/24 09:56 12/24/24 22:50 120 MLS/HR Ondansetron HCl 4 mg Q4HP PRN IV 12/11/24 08:45 Nitroglycerin 0.4 mg Q5MINP PRN SL 12/11/24 08:45 Ascorbic Acid 500 mg BID GT 12/11/24 10:00 12/24/24 22:31 500 MG Baclofen 20 mg Q6HR GT 12/11/24 12:00 12/24/24 17:50 20 MG Multivitamins 1 tab DAILY GT 12/11/24 10:00 12/24/24 09:38 1 TAB Polyethylene Glycol 17 gm DAILY PO 12/11/24 10:00 12/19/24 09:06 17 GM Lacosamide 150 mg BID GT 12/11/24 10:00 12/24/24 22:31 150 MG Levetiracetam 1,000 mg BID GT 12/11/24 10:00 12/24/24 22:35 1,000 MG Acetaminophen 650 mg Q6HP PRN [place] 12/11/24 09:45 Acetaminophen 650 mg Q6HP PRN PO 12/11/24 10:00 Levalbuterol HCl 0.625 mg Q6HR NEB 12/12/24 00:00 12/24/24 18:18 0.625 MG Ipratropium [place] 0.5 mg Q6HR NEB 12/12/24 00:00 12/24/24 18:18 0.5 MG Enteral Nutritional Formula 1,000 ml 60ML/HR GT 12/13/24 04:15 12/22/24 10:36 1,000 ML Enoxaparin Sodium 40 mg DAILY SC 12/23/24 10:00 12/24/24 09:38 40 MG Pantoprazole Sodium 40 mg DAILY IV 12/23/24 10:00 12/24/24 09:38 40 MG Vancomycin HCl 200 ml @ 200 mls/hr Q10H IV 12/23/24 16:00 UNV Acetylcysteine 200 mg Q8HR NEB 12/23/24 22:00 12/26/24 21:59 12/24/24 21:48 200 MG objective Gen.: Patient lying in bed in no apparent distress. On supplemental oxygen via trach Head: Normocephalic, atraumatic. Eyes: EOMI/PERRLA. Ears: Normal hearing. Normal anatomy. Neck/trachea: Trach in place. Nose: Normal external anatomy. Mouth: Moist mucous membranes. Chest: Decreased air entry bilaterally. No wheezing or rhonchi. Cardiovascular: Positive S1, positive S2. Regular rate and rhythm. Abdomen: Positive bowel sounds in all 4 quadrants. Soft, non-tender, non- distended. : Deferred. Rectal: Deferred. Skin: Warm, dry. Intact. Extremities: 2+ radial pulses bilaterally. No lower extremity edema. Neuro: Awake, alert, oriented x3. Nonverbal at baseline. No gross motor or sensory deficits. Cranial nerves II through XII intact. Quadriplegia. laboratory and microbiology Laboratory Tests 12/24/24 07:07 12/23/24 05:04 Test 12/24/24 07:07 Range/Units Serum Glucose 102 74-106 mg/dL Assessment/Plan Impression: Chronic hypoxic respiratory failure S/p tracheostomy Pleural effusion, trace Compressive atelectasis GGO on imaging S/p ventriculoperitoneal shunt Ascites Overweight, BMI 28.5 Events: Remains on supplemental oxygen On 6 LPM humidified air via trach Pt with thick yellow sputum Afebrile. No overnight events. Continue trach care Pulmonary toileting Continue bronchodilators/Mucomyst Chest physiotherapy Completed antibiotic course Sputum cultures positive for E. coli, awaiting sensitivities. ID recommendations appreciated. Head of bed elevation Aspiration precautions Tube feeds for nutritional support Continue Lovenox for DVT ppx CXR on 12/20 showed no significant change; notable for congestion, low lung volumes, cardiomegaly, Labs and imaging reviewed. Rest of plan as noted below. Plan: Supplemental oxygen On 6 liters via T-piece Titrate to keep O2 sats above 92%. Trach care per RT Pulmonary toileting Continue bronchodilators. Completed antibiotics Monitor renal function. Monitor electrolytes. Supplement as necessary. Monitor ins and outs. Wound care. DVT prophylaxis - Lovenox. CT chest, abdomen and pelvis on 12/17/24 revealed trace bilateral pleural effusions, bibasilar atelectasis and diffuse bilateral ground-glass opacity. Cardiomegaly and trace pericardial effusion. Cholelithiasis. Nonobstructive right nephrolithiasis. Percutaneous gastrostomy. Ventriculoperitoneal shunt. Tracheostomy. Small volume pelvic ascites. Labs and imaging reviewed. Prognosis: Poor given patient's multiple co-morbidities. Rest of plan per hospitalist and other consultants. Thank you, Dr. Kothari, for allowing me to participate in this patient's care. Further recommendations will depend on the patient's clinical course. Please do not hesitate to contact me if you have any questions or concerns. This medical document was created using an electronic medical record system with [employer] dictation system. Although these documentations are being carefully reviewed, there may still be some phonetic and typographical changes. The errors are purely typographical, due to imperfection on the software program, and do not reflect any compromise in the patient's medical care. Dietary Evaluation Review Comments: 1. Recommend peptide based TF Pivot 1.5Cal @45ml/hr providing 101g protein 1620kcal supporting pt's protein needs @120% and energy needs @93%. 2. Reassess when pt passes EDITOR CONTINUITY AND SCRIPT eval and able to have PO feedings Expected Outcomes/Goals: prevent wt loss, improve nutrition status Plan discussed with: Patient, Other (CRYSTAL Hutchison) HOMERO PENA MD Dec 24, 2024 23:21
[2024-12-25] VITALS (17 sets, daily range): BP systolic 110–138; BP diastolic 67–75; PULSE 65–98; RESP 17–22; TEMP 97.6–98.7; O2SAT 93–99
[2024-12-25 06:10] LABS: Hematocrit 41.6 % (41.0-53.0); Hemoglobin 14.3 g/dL (13.5-17.5); Mean Corpuscular Hemoglobin 29.5 pg (28.0-32.0); Mean Corpuscular Volume 85.6 fL (80.0-100.0); Nucleated Red Blood Cells % 0.0 %
[2024-12-25 06:16] LABS: Alkaline Phosphatase 96 U/L (46-116); Anion Gap 9 (5-15); BUN/Creatinine Ratio 14.6 (10.0-20.0); Carbon Dioxide 25 mmol/L (20-31); Glucose 97 mg/dL (74-106); Potassium 3.7 mmol/L (3.5-5.1); Sodium 141 mmol/L (136-145); Total Protein 6.0 g/dL (5.7-8.2)
[2024-12-25 06:17] LABS: Alanine Aminotransferase 56 U/L (7-40); Albumin 3.5 g/dL (3.2-4.8); Bilirubin, Total 0.5 mg/dL (0.2-1.0); Blood Urea Nitrogen 7 mg/dL (9-23); Calcium 8.4 mg/dL (8.7-10.4); Chloride 107 mmol/L (98-107)
--- NOTE | 2024-12-25 08:31 | DVHPN2 ---
Subjective The patient is nonverbal; still on 6 L/min oxygen therapy; no low-grade fever overnight Reviewed: Care Plan, H&P, Labs, Medications, Previous Orders, Radiology, Other (Consultations) Changes from previous H/P or p: Changes Objective Vitals Vital Signs Date Time Temp Pulse Resp B/P (MAP) Pulse Ox O2 Delivery O2 Flow Rate FiO2 12/25/24 06:14 88 19 98 12/25/24 06:08 T-piece 6.0 12/25/24 06:08 28 28 12/25/24 05:00 98.7 130/70 (90) 98.7 Intake/Output Intake and Output 12/25/24 07:00 Intake Total 960 ml Output Total 3027 ml Balance -2067 ml Intake Oral 0 ml IV Total 960 ml Output Urine Total 3025 ml Stool Total 2 ml General Appearance: No acute distress, Other (Nonverbal) HEENT: Other (Left scalp deformity from previous craniotomy/traumatic brain injury) Neck: Other (Tracheostomy in place) Lungs: Other (Few crackles bilateral lungs basis) Cardiovascular: Regular rate, Normal S1, Normal S2 Abdomen: Normal bowel sounds, Soft, Other (G-tube in place) Genitourinary: Other (El's in place) Musculoskeletal: Other (Contracted And muscle wasting) Extremities: No edema Neuro: Other (Quadriplegic; nonverbal) Skin: Other (No ulcers and no deep tissue injuries found on December 25, 2024) Psych/Mental Status: Other (Nonverbal) Medications Current Medications Medications Dose Ordered Sig/Ata Route Start Time Stop Time Status Last Admin Dose Admin Sodium Chloride 1,000 ml @ 120 mls/hr Q8H20M IV 12/11/24 09:56 12/24/24 22:50 120 MLS/HR Ondansetron HCl 4 mg Q4HP PRN IV 12/11/24 08:45 Nitroglycerin 0.4 mg Q5MINP PRN SL 12/11/24 08:45 Ascorbic Acid 500 mg BID GT 12/11/24 10:00 12/24/24 22:31 500 MG Baclofen 20 mg Q6HR GT 12/11/24 12:00 12/25/24 05:25 20 MG Multivitamins 1 tab DAILY GT 12/11/24 10:00 12/24/24 09:38 1 TAB Polyethylene Glycol 17 gm DAILY PO 12/11/24 10:00 12/19/24 09:06 17 GM Lacosamide 150 mg BID GT 12/11/24 10:00 12/24/24 22:31 150 MG Levetiracetam 1,000 mg BID GT 12/11/24 10:00 12/24/24 22:35 1,000 MG Acetaminophen 650 mg Q6HP PRN [place] 12/11/24 09:45 Acetaminophen 650 mg Q6HP PRN PO 12/11/24 10:00 Levalbuterol HCl 0.625 mg Q6HR NEB 12/12/24 00:00 12/25/24 06:07 0.625 MG Ipratropium [place] 0.5 mg Q6HR NEB 12/12/24 00:00 12/25/24 06:07 0.5 MG Enteral Nutritional Formula 1,000 ml 60ML/HR GT 12/13/24 04:15 12/25/24 00:40 1,000 ML Enoxaparin Sodium 40 mg DAILY SC 12/23/24 10:00 12/24/24 09:38 40 MG Pantoprazole Sodium 40 mg DAILY IV 12/23/24 10:00 12/24/24 09:38 40 MG Vancomycin HCl 200 ml @ 200 mls/hr Q10H IV 12/23/24 16:00 UNV Acetylcysteine 200 mg Q8HR [facility] 12/23/24 22:00 12/26/24 21:59 12/25/24 06:08 200 MG Laboratory Results Laboratory Tests 12/25/24 05:15 Chemistry Test 12/25/24 05:15 Albumin 3.5 g/dL (3.2-4.8) Calcium Level 8.4 mg/dL (8.7-10.4) L Total Protein 6.0 g/dL (5.7-8.2) LFT Test 12/25/24 05:15 Alanine Aminotransferase (ALT) 56 U/L (7-40) H Alkaline Phosphatase 96 U/L (46-116) Aspartate Amino Transferase (AST) 47 U/L (13-40) H Total Bilirubin 0.5 mg/dL (0.2-1.0) Urinalysis Test 12/11/24 06:00 12/15/24 02:00 Urine Granular Casts Few /lpf (0) Urine Yeast (Budding) Occasional /hpf (None Urine Color Light-yellow (Yellow) Urine Clarity Clear (Clear) Urine pH 6.0 (5.0-9.0) Urine Specific [place] 1.010 (1.001-1.035) Urine Protein Negative (Negative) Urine Ketones Negative (Negative) Urine Blood 2+ /uL (Negative) H Urine Nitrite Negative (Negative) Urine Bilirubin Negative (Negative) Urine Urobilinogen Normal mg/dL (Negative) Urine Leukocyte Esterase Negative /uL (Negative) Urine RBC 49 /hpf (0 - 3) Urine Microscopic WBC 2 /HPF (0-3) Urine Squamous Epithelial Cells None seen /hpf (<5) Urine Bacteria None seen /hpf (None Seen) Urine Mucus Few (None Seen) Urine Glucose Normal mg/dL (Normal) Microbiology Microbiology Date/Time Source Procedure Growth Status 12/20/24 01:31 Trachea Gram Stain - Final Resulted 12/20/24 01:31 Respiratory Culture - Preliminary Escherichia coli - ESBL Citrobacter koseri Resulted 12/11/24 06:00 Voided Urine Urine Culture - Final Complete 12/11/24 02:57 Blood Blood Culture - Final NO GROWTH AFTER 5 DAYS OF INCUBATION. Complete Labs and/or images reviewed: Labs reviewed by me, Image(s) reviewed by me Assessment/Plan Assessment/Plan Covering: # Sepsis with lactic acidosis due to aspiration pneumonia due to ESBL E coli # Acute on chronic hypoxic respiratory failure due to aspiration pneumonia due to E coli, pleural effusion, and compressive atelectasis; chronic ground-glass opacities on imaging # Hypertensive heart disease with chronic diastolic heart failure; not in exacerbation; with a history of endocarditis # Traumatic brain injury status post left craniotomy, status post G-tube, status post tracheostomy; status post BUSINESS TECHNOLOGY ARCHITECT shunt; quadriplegic; nonverbal; bed-bound # 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 # Elevated LFTs; most likely due to medications side effects # Overweight Received last dose of IV vancomycin 12/23/2024; received last dose of cefepime 12/22/2024 Decision regarding continuation of IV antibiotics as per ID and pulmonology Continue oxygen therapy as needed Reviewed the available lab work and imaging studies Urine and blood cultures are negative so far ESBL E coli was the final results of sputum cultures; started on IV meropenem by ID on December 25, 2024 Continue tube feeding as per security sme Continue monitoring liver and kidney functions Continue tracheostomy care Continue wound prevention care by changing the position of the patient every 2 hours Continue chest percussion therapy Aspiration and seizures precautions Continue antiseizure medications Avoid hepatotoxic agents DVT and GI prophylaxis Late Entry. This medical document was created using an electronic medical record system with computerized dictation system. Although this document has been carefully reviewed, there might still be some phonetic and typographical errors. These areas are purely typographical due to imperfections of the software programs, and do not reflect any compromise in the patient's medical care. Plan discussed with: Other (Mother; nurse) My Orders Orders - LEANDER CUEVA MD Procedure Category Date Status Time Communication Order ORDERS 12/24/24 Transmitted 09:08 * Infectious [place]- Dr. MCGARRY 12/24/24 Transmitted Carolyn Velasco 09:08 Date of Service: Dec 25, 2024 Billing Provider: LEANDER CUEVA MD Common Visit Codes: [id number] INP/OBS CARE(HIGH) LEANDER CUEVA MD Dec 25, 2024 08:31
[2024-12-25] MEDS: MEROPENEM 1GM IVPB 50 ML IV SCH (13:54)
[2024-12-25] MEDS: IPRATROPIUM BROM 0.5 MG/2.5ML INH SOL NEB SCH (14:05)
[2024-12-25] MEDS: LEVALBUTEROL HCL 1.25 MG/3 ML NEB NEB SCH (14:06)
--- NOTE | 2024-12-25 23:49 | DVHPN2 ---
Progress Note - Dictate Date Seen: Dec 25, 2024 Medical Necessity Reason Pt with a Central, PICC or Fol: Yes The following are medically ne: Willis Catheter Reason for willis catheter: Strict I&O Subjective [facility] Patient seen and examined at bedside. Remains on supplemental oxygen via trach Overnight events reviewed. vital signs Vital Sign Date Time Temp Pulse Resp B/P (MAP) Pulse Ox O2 Delivery O2 Flow Rate FiO2 12/25/24 22:18 89 18 99 12/25/24 22:08 T-piece 6 28 Cool Aerosol 28 12/25/24 21:00 98.3 138/70 (92) 98.3 Total Intake and Output 12/24/24 12/24/24 12/25/24 15:00 23:00 07:00 Intake Total 960 ml 0 ml Output Total 1852 ml 1175 ml Balance 960 ml -1852 ml -1175 ml medications Current Medications Medications Dose Ordered Sig/Ata Route Start Time Stop Time Status Last Admin Dose Admin Sodium Chloride 1,000 ml @ 120 mls/hr Q8H20M IV 12/11/24 09:56 12/25/24 18:19 120 MLS/HR Ondansetron HCl 4 mg Q4HP PRN IV 12/11/24 08:45 Nitroglycerin 0.4 mg Q5MINP PRN SL 12/11/24 08:45 Ascorbic Acid 500 mg BID GT 12/11/24 10:00 12/25/24 21:52 500 MG Baclofen 20 mg Q6HR GT 12/11/24 12:00 12/25/24 23:28 20 MG Multivitamins 1 tab DAILY GT 12/11/24 10:00 12/25/24 10:37 1 TAB Polyethylene Glycol 17 gm DAILY PO 12/11/24 10:00 12/19/24 09:06 17 GM Lacosamide 150 mg BID GT 12/11/24 10:00 12/25/24 21:52 150 MG Levetiracetam 1,000 mg BID GT 12/11/24 10:00 12/25/24 21:51 1,000 MG Acetaminophen 650 mg Q6HP PRN MO 12/11/24 09:45 Acetaminophen 650 mg Q6HP PRN PO 12/11/24 10:00 Enteral Nutritional Formula 1,000 ml 60ML/HR GT 12/13/24 04:15 12/25/24 23:31 1,000 ML Enoxaparin Sodium 40 mg DAILY SC 12/23/24 10:00 12/25/24 10:35 40 MG Pantoprazole Sodium 40 mg DAILY IV 12/23/24 10:00 12/25/24 10:32 40 MG Vancomycin HCl 200 ml @ 200 mls/hr Q10H IV 12/23/24 16:00 UNV Acetylcysteine 200 mg Q8HR NEB 12/23/24 22:00 12/26/24 21:59 12/25/24 22:08 200 MG Ipratropium [place] 0.5 mg Q8HR NEB 12/25/24 14:00 12/25/24 22:08 0.5 MG Levalbuterol HCl 0.625 mg Q8HR NEB 12/25/24 14:00 12/25/24 22:09 0.625 MG Meropenem 50 ml @ 17 mls/hr Q8HR IV 12/25/24 14:00 12/25/24 21:52 17 MLS/HR objective Gen.: Patient lying in bed in no apparent distress. On supplemental oxygen via trach Head: Normocephalic, atraumatic. Eyes: EOMI/PERRLA. Ears: Normal hearing. Normal anatomy. Neck/trachea: Trach in place. Nose: Normal external anatomy. Mouth: Moist mucous membranes. Chest: Decreased air entry bilaterally. No wheezing or rhonchi. Cardiovascular: Positive S1, positive S2. Regular rate and rhythm. Abdomen: Positive bowel sounds in all 4 quadrants. Soft, non-tender, non- distended. : Deferred. Rectal: Deferred. Skin: Warm, dry. Intact. Extremities: 2+ radial pulses bilaterally. No lower extremity edema. Neuro: Awake, alert, oriented x3. Nonverbal at baseline. No gross motor or sensory deficits. Cranial nerves II through XII intact. Quadriplegia. laboratory and microbiology Laboratory Tests 12/25/24 05:15 Test 12/25/24 05:15 Range/Units Serum Glucose 97 74-106 mg/dL Assessment/Plan Impression: Chronic hypoxic respiratory failure S/p tracheostomy Pleural effusion, trace Compressive atelectasis GGO on imaging S/p ventriculoperitoneal shunt Ascites Overweight, BMI 28.5 Events: Remains on supplemental oxygen On 6 LPM humidified air via trach Afebrile. No overnight events. Continue trach care Pulmonary toileting Continue bronchodilators/Mucomyst Chest physiotherapy Sputum cultures positive for E. coli Antibiotics - started meropenem ID recommendations appreciated. Head of bed elevation Aspiration precautions Tube feeds for nutritional support Continue Lovenox for DVT ppx Labs and imaging reviewed. Rest of plan as noted below. Plan: Supplemental oxygen On 6 liters via T-piece Titrate to keep O2 sats above 92%. Trach care per RT Pulmonary toileting Continue bronchodilators. Continue antibiotics Follow up cultures Monitor renal function. Monitor electrolytes. Supplement as necessary. Monitor ins and outs. Wound care. DVT prophylaxis - Lovenox. CT chest, abdomen and pelvis on 12/17/24 revealed trace bilateral pleural effusions, bibasilar atelectasis and diffuse bilateral ground-glass opacity. Cardiomegaly and trace pericardial effusion. Cholelithiasis. Nonobstructive right nephrolithiasis. Percutaneous gastrostomy. Ventriculoperitoneal shunt. Tracheostomy. Small volume pelvic ascites. Labs and imaging reviewed. Prognosis: Poor given patient's multiple co-morbidities. Rest of plan per hospitalist and other consultants. Thank you, Dr. Kothari, for allowing me to participate in this patient's care. Further recommendations will depend on the patient's clinical course. Please do not hesitate to contact me if you have any questions or concerns. This medical document was created using an electronic medical record system with [email or web address] dictation system. Although these documentations are being carefully reviewed, there may still be some phonetic and typographical changes. The errors are purely typographical, due to imperfection on the software program, and do not reflect any compromise in the patient's medical care. Dietary Evaluation Review Comments: 1. Recommend peptide based TF Pivot 1.5Cal @45ml/hr providing 101g protein 1620kcal supporting pt's protein needs @120% and energy needs @93%. 2. Reassess when pt passes MASTER MERCHANDISER eval and able to have PO feedings Expected Outcomes/Goals: prevent wt loss, improve nutrition status Plan discussed with: Patient, Other (CRYSTAL Blanco) HOMERO PENA MD Dec 25, 2024 23:49
[2024-12-26] VITALS (16 sets, daily range): BP systolic 118–134; BP diastolic 62–73; PULSE 65–99; RESP 18–22; TEMP 97–98.6; O2SAT 95–99
[2024-12-26 06:29] LABS: Alkaline Phosphatase 85 U/L (46-116); Anion Gap 9 (5-15); BUN/Creatinine Ratio 14.9 (10.0-20.0); Carbon Dioxide 25 mmol/L (20-31); Glucose 86 mg/dL (74-106); Potassium 3.7 mmol/L (3.5-5.1); Sodium 142 mmol/L (136-145)
[2024-12-26 06:30] LABS: Alanine Aminotransferase 57 U/L (7-40); Albumin 3.2 g/dL (3.2-4.8); Bilirubin, Total 0.4 mg/dL (0.2-1.0); Blood Urea Nitrogen 7 mg/dL (9-23); Calcium 8.3 mg/dL (8.7-10.4); Chloride 108 mmol/L (98-107); Total Protein 5.5 g/dL (5.7-8.2)
--- NOTE | 2024-12-26 07:01 | DVHPN2 ---
Subjective The patient is nonverbal; still on 6 L/min oxygen therapy; no low-grade fever overnight Reviewed: Care Plan, H&P, Labs, Medications, Previous Orders, Radiology, Other (Consultations) Changes from previous H/P or p: No Changes Objective Vitals Vital Signs Date Time Temp Pulse Resp B/P (MAP) Pulse Ox O2 Delivery O2 Flow Rate FiO2 12/26/24 04:35 98.6 65 18 122/62 (82) 97 98.6 12/25/24 22:08 T-piece 6 28 Cool Aerosol 28 Intake/Output Intake and Output 12/26/24 07:00 Intake Total 2070 ml Output Total 3750 ml Balance -1680 ml Intake Oral 0 ml IV Total 1410 ml Tube Feeding 660 ml Output Urine Total 3750 ml General Appearance: No acute distress, Other (Nonverbal) HEENT: Other (Left scalp deformity from previous craniotomy/traumatic brain injury) Neck: Other (Tracheostomy in place) Lungs: Other (Few crackles bilateral lungs basis) Cardiovascular: Regular rate, Normal S1, Normal S2 Abdomen: Normal bowel sounds, Soft, Other (G-tube in place) Genitourinary: Other (El's in place) Musculoskeletal: Other (Contracted And muscle wasting) Extremities: No edema Neuro: Other (Quadriplegic; nonverbal) Skin: Other (No ulcers and no deep tissue injuries found on December 25, 2024) Psych/Mental Status: Other (Nonverbal) Medications Current Medications Medications Dose Ordered Sig/Ata Route Start Time Stop Time Status Last Admin Dose Admin Sodium Chloride 1,000 ml @ 120 mls/hr Q8H20M IV 12/11/24 09:56 12/26/24 06:02 120 MLS/HR Ondansetron HCl 4 mg Q4HP PRN IV 12/11/24 08:45 Nitroglycerin 0.4 mg Q5MINP PRN SL 12/11/24 08:45 Ascorbic Acid 500 mg BID GT 12/11/24 10:00 12/25/24 21:52 500 MG Baclofen 20 mg Q6HR GT 12/11/24 12:00 12/26/24 06:01 20 MG Multivitamins 1 tab DAILY GT 12/11/24 10:00 12/25/24 10:37 1 TAB Polyethylene Glycol 17 gm DAILY PO 12/11/24 10:00 12/19/24 09:06 17 GM Lacosamide 150 mg BID GT 12/11/24 10:00 12/25/24 21:52 150 MG Levetiracetam 1,000 mg BID GT 12/11/24 10:00 12/25/24 21:51 1,000 MG Acetaminophen 650 mg Q6HP PRN [place] 12/11/24 09:45 Acetaminophen 650 mg Q6HP PRN PO 12/11/24 10:00 Enteral Nutritional Formula 1,000 ml 60ML/HR GT 12/13/24 04:15 12/25/24 23:31 1,000 ML Enoxaparin Sodium 40 mg DAILY SC 12/23/24 10:00 12/25/24 10:35 40 MG Pantoprazole Sodium 40 mg DAILY IV 12/23/24 10:00 12/25/24 10:32 40 MG Vancomycin HCl 200 ml @ 200 mls/hr Q10H IV 12/23/24 16:00 UNV Acetylcysteine 200 mg Q8HR NEB 12/23/24 22:00 12/26/24 21:59 12/26/24 05:49 200 MG Ipratropium [place] 0.5 mg Q8HR NEB 12/25/24 14:00 12/26/24 05:49 0.5 MG Levalbuterol HCl 0.625 mg Q8HR NEB 12/25/24 14:00 12/26/24 05:49 0.625 MG Meropenem 50 ml @ 17 mls/hr Q8HR IV 12/25/24 14:00 12/26/24 06:02 17 MLS/HR Laboratory Results Laboratory Tests 12/25/24 05:15 12/26/24 04:48 Chemistry Test 12/26/24 04:48 Albumin 3.2 g/dL (3.2-4.8) Calcium Level 8.3 mg/dL (8.7-10.4) L Total Protein 5.5 g/dL (5.7-8.2) L LFT Test 12/26/24 04:48 Alanine Aminotransferase (ALT) 57 U/L (7-40) H Alkaline Phosphatase 85 U/L (46-116) Aspartate Amino Transferase (AST) 51 U/L (13-40) H Total Bilirubin 0.4 mg/dL (0.2-1.0) Urinalysis Test 12/11/24 06:00 12/15/24 02:00 Urine Granular Casts Few /lpf (0) Urine Yeast (Budding) Occasional /hpf (None Urine Color Light-yellow (Yellow) Urine Clarity Clear (Clear) Urine pH 6.0 (5.0-9.0) Urine Specific [place] 1.010 (1.001-1.035) Urine Protein Negative (Negative) Urine Ketones Negative (Negative) Urine Blood 2+ /uL (Negative) H Urine Nitrite Negative (Negative) Urine Bilirubin Negative (Negative) Urine Urobilinogen Normal mg/dL (Negative) Urine Leukocyte Esterase Negative /uL (Negative) Urine RBC 49 /hpf (0 - 3) Urine Microscopic WBC 2 /HPF (0-3) Urine Squamous Epithelial Cells None seen /hpf (<5) Urine Bacteria None seen /hpf (None Seen) Urine Mucus Few (None Seen) Urine Glucose Normal mg/dL (Normal) Microbiology Microbiology Date/Time Source Procedure Growth Status 12/20/24 01:31 Trachea Gram Stain - Final Resulted 12/20/24 01:31 Respiratory Culture - Preliminary Escherichia coli - ESBL Pseudomonas aeruginosa Citrobacter koseri Resulted 12/11/24 06:00 Voided Urine Urine Culture - Final Complete 12/11/24 02:57 Blood Blood Culture - Final NO GROWTH AFTER 5 DAYS OF INCUBATION. Complete Assessment/Plan Assessment/Plan Covering: # Sepsis with lactic acidosis due to aspiration pneumonia due to ESBL E coli, Pseudomonas aeruginosa, and Citrobacter koseri # Acute on chronic hypoxic respiratory failure due to aspiration pneumonia due to ESBL E coli, Pseudomonas aeruginosa, and Citrobacter koseri, pleural effusion, and compressive atelectasis; chronic ground-glass opacities on imaging # Hypertensive heart disease with chronic diastolic heart failure; not in exacerbation; with a history of endocarditis # Traumatic brain injury status post left craniotomy, status post G-tube, status post tracheostomy; status post ABRASIVE MIXER shunt; quadriplegic; nonverbal; bed-bound # 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 # Elevated LFTs; most likely due to medications side effects # Overweight Received last dose of IV vancomycin 12/23/2024; received last dose of cefepime 12/22/2024 Decision regarding continuation of IV antibiotics as per ID and pulmonology Continue oxygen therapy as needed Reviewed the available lab work and imaging studies Urine and blood cultures are negative so far ESBL E coli was the final results of sputum cultures; started on IV meropenem by ID on December 25, 2024 Continue tube feeding as per straw boss Continue monitoring liver and kidney functions Continue tracheostomy care Continue wound prevention care by changing the position of the patient every 2 hours Continue chest percussion therapy Aspiration and seizures precautions Continue antiseizure medications Avoid hepatotoxic agents DVT and GI prophylaxis Late Entry. This medical document was created using an electronic medical record system with computerized dictation system. Although this document has been carefully reviewed, there might still be some phonetic and typographical errors. These areas are purely typographical due to imperfections of the software programs, and do not reflect any compromise in the patient's medical care. Plan discussed with: Other (Mother (will be updated at bedside or by the phone later today); Nurse) My Orders Orders - LEANDER CUEVA MD Procedure Category Date Status Time Communication Order ORDERS 12/25/24 Transmitted 08:33 Comprehensive LAB 12/27/24 Verified Metabolic Panel 04:00 Complete Blood Count LAB 12/27/24 Verified 04:00 Date of Service: Dec 26, 2024 Billing Provider: LEANDER CUEVA MD Common Visit Codes: [id number] INP/OBS CARE(HIGH) LEANDER CUEVA MD Dec 26, 2024 07:01
--- NOTE | 2024-12-26 17:31 | DVHPN2 ---
Consult Progress Note Date Seen: Dec 25, 2024 Subjective Patient reports: Other (not having fevers and is growing multiple organisms not previous grown on prior trachc ultures . sputum is clear and thin . 6 liters nasal cnaula , tolerating oral intake and tube feeds ) Objective vital signs Vital Sign Date Time Temp Pulse Resp B/P (MAP) Pulse Ox O2 Delivery O2 Flow Rate FiO2 12/26/24 16:53 97.0 70 20 121/69 (86) 99 97.0 12/26/24 13:20 T-piece 6.0 12/26/24 13:20 28 28 Total Intake and Output 12/25/24 12/25/24 12/26/24 15:00 23:00 07:00 Intake Total 360 ml 710 ml 1000 ml Output Total 2350 ml 1400 ml Balance 360 ml -1640 ml -400 ml medications Current Medications Medications Dose Ordered Sig/Ata Route Start Time Stop Time Status Last Admin Dose Admin Sodium Chloride 1,000 ml @ 120 mls/hr Q8H20M IV 12/11/24 09:56 12/26/24 06:02 120 MLS/HR Ondansetron HCl 4 mg Q4HP PRN IV 12/11/24 08:45 Nitroglycerin 0.4 mg Q5MINP PRN SL 12/11/24 08:45 Ascorbic Acid 500 mg BID GT 12/11/24 10:00 12/26/24 11:09 500 MG Baclofen 20 mg Q6HR GT 12/11/24 12:00 12/26/24 11:22 20 MG Multivitamins 1 tab DAILY GT 12/11/24 10:00 12/26/24 11:09 1 TAB Polyethylene Glycol 17 gm DAILY PO 12/11/24 10:00 12/19/24 09:06 17 GM Lacosamide 150 mg BID GT 12/11/24 10:00 12/26/24 11:09 150 MG Levetiracetam 1,000 mg BID GT 12/11/24 10:00 12/26/24 11:09 1,000 MG Acetaminophen 650 mg Q6HP PRN [place] 12/11/24 09:45 Acetaminophen 650 mg Q6HP PRN PO 12/11/24 10:00 Enteral Nutritional Formula 1,000 ml 60ML/HR GT 12/13/24 04:15 12/25/24 23:31 1,000 ML Enoxaparin Sodium 40 mg DAILY SC 12/23/24 10:00 12/26/24 11:10 40 MG Pantoprazole Sodium 40 mg DAILY IV 12/23/24 10:00 12/26/24 11:09 40 MG Vancomycin HCl 200 ml @ 200 mls/hr Q10H IV 12/23/24 16:00 UNV Acetylcysteine 200 mg Q8HR [facility] 12/23/24 22:00 12/26/24 21:59 12/26/24 13:20 200 MG Ipratropium [place] 0.5 mg Q8HR NEB 12/25/24 14:00 12/26/24 13:20 0.5 MG Levalbuterol HCl 0.625 mg Q8HR NEB 12/25/24 14:00 12/26/24 13:20 0.625 MG Meropenem 50 ml @ 17 mls/hr Q8HR IV 12/25/24 14:00 12/26/24 14:11 17 MLS/HR Physical Exam: General: NAD Neck: Supple. No masses. HEENT: PERRL. Normal lids and conjunctiva. Moist mucous membranes. Oropharynx without lesions, exudates or excessive erythema. Normal appearance of the external aspects of the nose and ears. Heart: Regular rhythm, normal rate. No murmur. No lower extremity edema. Lungs: Normal respiratory effort. Clear to auscultation bilaterally. No wheezes. No crackles. Abdomen: Soft. Non-tender. Non-distended. No masses or abdominal hernia. Msk: No digital cyanosis. Normal strength and tone in all 4 limbs Skin: Warm and dry, no rashes. Blanching erythema over sacrum, no open wounds. Neuro: Alert. No facial droop or slurred speech. Extra-ocular movements intact. Sensation intact to soft touch in all 4 limbs. Psych: Appropriate mood. Full affect. Oriented to person, place, time, and situation. laboratory and microbiology Laboratory Tests 12/26/24 04:48 12/25/24 05:15 Test 12/26/24 04:48 Range/Units Serum Glucose 86 74-106 mg/dL Problem List/Assessment/Plan Problems(with codes): (1) Aspiration into airway (2) Status post seizure (3) Traumatic brain injury (4) Metabolic encephalopathy (5) Sepsis Problem List/Assessment/Plan ASSESSMENT AND PLAN: ID Problem List: \-- Recurrent aspiration and aspiration pneumonia \-- Multidrug-resistant pseudomonal and Enterobacter infections \-- Traumatic brain injury, nonverbal, post-tracheostomy and PEG \-- Chronically bedbound with sacral ulcer \-- History of endocarditis (diagnosed 2013) \-- Seizure disorder Assessment Mr. Molina is a 49-year-old male with a significant past medical history of traumatic brain injury with nonverbal status, chronic tracheostomy, percutaneous gastrostomy tube, seizure disorder, history of endocarditis in 2033, and multiple prior admissions for sepsis and pneumonia. He is chronically bedbound. The patient presents with shortness of breath. On admission, he was febrile to 102F and was requiring 8L O2 via trach collar. Initial blood pressure was 132/73, pulse 115, respiratory rate 23, and lactic acid 1.6. He also has a history of recurrent aspiration and multidrug-resistant respiratory pathogens. During this admission, he was started empirically on vancomycin and Zosyn, though he has a documented Zosyn allergy; however, no reaction was observed during this hospitalization. Chest X-ray showed no acute disease but diminished lung volumes. CT chest, abdomen, and pelvis revealed trace bilateral pleural effusions, diffuse bilateral ground glass opacities, cardiomegaly with trace pericardial effusion, cholelithiasis, nonobstructive right nephrolithiasis, small pelvic ascites, and a ventriculoperitoneal shunt. Sputum culture growing gram-negative rods, likely resistant organism. He has been afebrile except for fevers on admission, remains oxygen-dependent but has weaned to 6L trach collar. No ongoing signs of sepsis or persistent pneumonia; WBC and clinical trajectory stable. Sacral ulcer is present, with blanching erythema but without open wound; managed with wound care and regular repositioning. 12/23: awaiting sputum culture results , Ct chest abdomen and pelvis was alrgely unremarkable except for diffuse oppacities in the lungs bilaterally 12/24: continue aspiration precautions . preliminary respiratory cultures showing gram negative rods . patient has history of carbapenem resistance of note 12/25: clinically doing well . growing ESBL e coli and possible carbapenem resistant pseudomonas and multidrug resistant all of which are sensitive to meropenem Plan: - stop zosyn , switch to meropenem - f/u on carbapenem resistance , may need to broaden out to cover these organisms \-- Monitor closely for new/worsening fever, rising WBC, increased sputum, or escalating oxygen requirements \-- If clinical deterioration or new signs of infection, consider Zerbaxa for 7 days given history of multidrug resistance \-- Maintain strict aspiration precautions, mindful of ongoing aspiration risk due to PEG and neurologic impairment \-- Continue sacral ulcer care and frequent repositioning to prevent pressure injury progression \-- Continue seizure precautions and routine monitoring \-- Echocardiogram and LEYDI negative for ongoing endocarditis \-- Monitor laboratory trends and reassess clinically Isolation Precautions: Standard Plan discussed with: Other Dietary Evaluation Review Comments: 1. Recommend peptide based TF Pivot 1.5Cal @45ml/hr providing 101g protein 1620kcal supporting pt's protein needs @120% and energy needs @93%. 2. Reassess when pt passes HVAC SERVICE TECHNICIAN eval and able to have PO feedings Expected Outcomes/Goals: prevent wt loss, improve nutrition status EDGARD JOHNSON MD Dec 26, 2024 17:31
--- NOTE | 2024-12-26 17:31 | DVHPN2 ---
Consult Progress Note Date Seen: Dec 24, 2024 Subjective Patient reports: Other (trach site appears clean , patient has no complaints . sitting in an elevated position to avoid aspiration ) Objective vital signs Vital Sign Date Time Temp Pulse Resp B/P (MAP) Pulse Ox O2 Delivery O2 Flow Rate FiO2 12/26/24 16:53 97.0 70 20 121/69 (86) 99 97.0 12/26/24 13:20 T-piece 6.0 12/26/24 13:20 28 28 Total Intake and Output 12/25/24 12/25/24 12/26/24 15:00 23:00 07:00 Intake Total 360 ml 710 ml 1000 ml Output Total 2350 ml 1400 ml Balance 360 ml -1640 ml -400 ml medications Current Medications Medications Dose Ordered Sig/Ata Route Start Time Stop Time Status Last Admin Dose Admin Sodium Chloride 1,000 ml @ 120 mls/hr Q8H20M IV 12/11/24 09:56 12/26/24 06:02 120 MLS/HR Ondansetron HCl 4 mg Q4HP PRN IV 12/11/24 08:45 Nitroglycerin 0.4 mg Q5MINP PRN SL 12/11/24 08:45 Ascorbic Acid 500 mg BID GT 12/11/24 10:00 12/26/24 11:09 500 MG Baclofen 20 mg Q6HR GT 12/11/24 12:00 12/26/24 11:22 20 MG Multivitamins 1 tab DAILY GT 12/11/24 10:00 12/26/24 11:09 1 TAB Polyethylene Glycol 17 gm DAILY PO 12/11/24 10:00 12/19/24 09:06 17 GM Lacosamide 150 mg BID GT 12/11/24 10:00 12/26/24 11:09 150 MG Levetiracetam 1,000 mg BID GT 12/11/24 10:00 12/26/24 11:09 1,000 MG Acetaminophen 650 mg Q6HP PRN [place] 12/11/24 09:45 Acetaminophen 650 mg Q6HP PRN PO 12/11/24 10:00 Enteral Nutritional Formula 1,000 ml 60ML/HR GT 12/13/24 04:15 12/25/24 23:31 1,000 ML Enoxaparin Sodium 40 mg DAILY SC 12/23/24 10:00 12/26/24 11:10 40 MG Pantoprazole Sodium 40 mg DAILY IV 12/23/24 10:00 12/26/24 11:09 40 MG Vancomycin HCl 200 ml @ 200 mls/hr Q10H IV 12/23/24 16:00 UNV Acetylcysteine 200 mg Q8HR NEB 12/23/24 22:00 12/26/24 21:59 12/26/24 13:20 200 MG Ipratropium [place] 0.5 mg Q8HR NEB 12/25/24 14:00 12/26/24 13:20 0.5 MG Levalbuterol HCl 0.625 mg Q8HR NEB 12/25/24 14:00 12/26/24 13:20 0.625 MG Meropenem 50 ml @ 17 mls/hr Q8HR IV 12/25/24 14:00 12/26/24 14:11 17 MLS/HR Physical Exam: General: NAD Neck: Supple. No masses. HEENT: PERRL. Normal lids and conjunctiva. Moist mucous membranes. Oropharynx without lesions, exudates or excessive erythema. Normal appearance of the external aspects of the nose and ears. Heart: Regular rhythm, normal rate. No murmur. No lower extremity edema. Lungs: Normal respiratory effort. Clear to auscultation bilaterally. No wheezes. No crackles. Abdomen: Soft. Non-tender. Non-distended. No masses or abdominal hernia. Msk: No digital cyanosis. Normal strength and tone in all 4 limbs Skin: Warm and dry, no rashes. Blanching erythema over sacrum, no open wounds. Neuro: Alert. No facial droop or slurred speech. Extra-ocular movements intact. Sensation intact to soft touch in all 4 limbs. Psych: Appropriate mood. Full affect. Oriented to person, place, time, and situation. laboratory and microbiology Laboratory Tests 12/26/24 04:48 12/25/24 05:15 Test 12/26/24 04:48 Range/Units Serum Glucose 86 74-106 mg/dL Problem List/Assessment/Plan Problems(with codes): (1) Sepsis (2) Metabolic encephalopathy (3) Traumatic brain injury (4) Aspiration into airway (5) Status post seizure Problem List/Assessment/Plan ASSESSMENT AND PLAN: ID Problem List: \-- Recurrent aspiration and aspiration pneumonia \-- Multidrug-resistant pseudomonal and Enterobacter infections \-- Traumatic brain injury, nonverbal, post-tracheostomy and PEG \-- Chronically bedbound with sacral ulcer \-- History of endocarditis (diagnosed 2013) \-- Seizure disorder Assessment Mr. Molina is a 49-year-old male with a significant past medical history of traumatic brain injury with nonverbal status, chronic tracheostomy, percutaneous gastrostomy tube, seizure disorder, history of endocarditis in 2033, and multiple prior admissions for sepsis and pneumonia. He is chronically bedbound. The patient presents with shortness of breath. On admission, he was febrile to 102F and was requiring 8L O2 via trach collar. Initial blood pressure was 132/73, pulse 115, respiratory rate 23, and lactic acid 1.6. He also has a history of recurrent aspiration and multidrug-resistant respiratory pathogens. During this admission, he was started empirically on vancomycin and Zosyn, though he has a documented Zosyn allergy; however, no reaction was observed during this hospitalization. Chest X-ray showed no acute disease but diminished lung volumes. CT chest, abdomen, and pelvis revealed trace bilateral pleural effusions, diffuse bilateral ground glass opacities, cardiomegaly with trace pericardial effusion, cholelithiasis, nonobstructive right nephrolithiasis, small pelvic ascites, and a ventriculoperitoneal shunt. Sputum culture growing gram-negative rods, likely resistant organism. He has been afebrile except for fevers on admission, remains oxygen-dependent but has weaned to 6L trach collar. No ongoing signs of sepsis or persistent pneumonia; WBC and clinical trajectory stable. Sacral ulcer is present, with blanching erythema but without open wound; managed with wound care and regular repositioning. 12/23: awaiting sputum culture results , Ct chest abdomen and pelvis was alrgely unremarkable except for diffuse oppacities in the lungs bilaterally 12/24: continue aspiration precautions . preliminary respiratory cultures showing gram negative rods . patient has history of carbapenem resistance of note Plan: - continue zosyn for now , transition patient to cover for ESBL or carbapenem resistance if patient developing signs of worsening pneumonia \-- Monitor closely for new/worsening fever, rising WBC, increased sputum, or escalating oxygen requirements \-- If clinical deterioration or new signs of infection, consider Zerbaxa for 7 days given history of multidrug resistance \-- Maintain strict aspiration precautions, mindful of ongoing aspiration risk due to PEG and neurologic impairment \-- Continue sacral ulcer care and frequent repositioning to prevent pressure injury progression \-- Continue seizure precautions and routine monitoring \-- Echocardiogram and LEYDI negative for ongoing endocarditis \-- Monitor laboratory trends and reassess clinically Isolation Precautions: Standard Plan discussed with: Other Dietary Evaluation Review Comments: 1. Recommend peptide based TF Pivot 1.5Cal @45ml/hr providing 101g protein 1620kcal supporting pt's protein needs @120% and energy needs @93%. 2. Reassess when pt passes WET END SUPERVISOR eval and able to have PO feedings Expected Outcomes/Goals: prevent wt loss, improve nutrition status EDGARD JOHNSON MD Dec 26, 2024 17:31
--- NOTE | 2024-12-26 17:31 | DVHPN2 ---
Consult Progress Note Date Seen: Dec 26, 2024 Subjective Patient reports: Other (tolerating tube feeds without any vomiting episodes however tube feeds have been slowed down . on 6 liters trach collar ) Objective vital signs Vital Sign Date Time Temp Pulse Resp B/P (MAP) Pulse Ox O2 Delivery O2 Flow Rate FiO2 12/26/24 16:53 97.0 70 20 121/69 (86) 99 97.0 12/26/24 13:20 T-piece 6.0 12/26/24 13:20 28 28 Total Intake and Output 12/25/24 12/25/24 12/26/24 15:00 23:00 07:00 Intake Total 360 ml 710 ml 1000 ml Output Total 2350 ml 1400 ml Balance 360 ml -1640 ml -400 ml medications Current Medications Medications Dose Ordered Sig/Ata Route Start Time Stop Time Status Last Admin Dose Admin Sodium Chloride 1,000 ml @ 120 mls/hr Q8H20M IV 12/11/24 09:56 12/26/24 06:02 120 MLS/HR Ondansetron HCl 4 mg Q4HP PRN IV 12/11/24 08:45 Nitroglycerin 0.4 mg Q5MINP PRN SL 12/11/24 08:45 Ascorbic Acid 500 mg BID GT 12/11/24 10:00 12/26/24 11:09 500 MG Baclofen 20 mg Q6HR GT 12/11/24 12:00 12/26/24 11:22 20 MG Multivitamins 1 tab DAILY GT 12/11/24 10:00 12/26/24 11:09 1 TAB Polyethylene Glycol 17 gm DAILY PO 12/11/24 10:00 12/19/24 09:06 17 GM Lacosamide 150 mg BID GT 12/11/24 10:00 12/26/24 11:09 150 MG Levetiracetam 1,000 mg BID GT 12/11/24 10:00 12/26/24 11:09 1,000 MG Acetaminophen 650 mg Q6HP PRN [place] 12/11/24 09:45 Acetaminophen 650 mg Q6HP PRN PO 12/11/24 10:00 Enteral Nutritional Formula 1,000 ml 60ML/HR GT 12/13/24 04:15 12/25/24 23:31 1,000 ML Enoxaparin Sodium 40 mg DAILY SC 12/23/24 10:00 12/26/24 11:10 40 MG Pantoprazole Sodium 40 mg DAILY IV 12/23/24 10:00 12/26/24 11:09 40 MG Vancomycin HCl 200 ml @ 200 mls/hr Q10H IV 12/23/24 16:00 UNV Acetylcysteine 200 mg Q8HR [facility] 12/23/24 22:00 12/26/24 21:59 12/26/24 13:20 200 MG Ipratropium [place] 0.5 mg Q8HR [facility] 12/25/24 14:00 12/26/24 13:20 0.5 MG Levalbuterol HCl 0.625 mg Q8HR NEB 12/25/24 14:00 12/26/24 13:20 0.625 MG Meropenem 50 ml @ 17 mls/hr Q8HR IV 12/25/24 14:00 12/26/24 14:11 17 MLS/HR Physical Exam: General: NAD Neck: Supple. No masses. HEENT: PERRL. Normal lids and conjunctiva. Moist mucous membranes. Oropharynx without lesions, exudates or excessive erythema. Normal appearance of the external aspects of the nose and ears. Heart: Regular rhythm, normal rate. No murmur. No lower extremity edema. Lungs: Normal respiratory effort. Clear to auscultation bilaterally. No wheezes. No crackles. Abdomen: Soft. Non-tender. Non-distended. No masses or abdominal hernia. Msk: No digital cyanosis. Normal strength and tone in all 4 limbs Skin: Warm and dry, no rashes. Blanching erythema over sacrum, no open wounds. Neuro: Alert. No facial droop or slurred speech. Extra-ocular movements intact. Sensation intact to soft touch in all 4 limbs. Psych: Appropriate mood. Full affect. Oriented to person, place, time, and situation. laboratory and microbiology Laboratory Tests 12/26/24 04:48 12/25/24 05:15 Test 12/26/24 04:48 Range/Units Serum Glucose 86 74-106 mg/dL Problem List/Assessment/Plan Problems(with codes): (1) Status post seizure (2) Aspiration into airway (3) Traumatic brain injury (4) Metabolic encephalopathy (5) Sepsis Problem List/Assessment/Plan ASSESSMENT AND PLAN: ID Problem List: \-- Recurrent aspiration and aspiration pneumonia \-- Multidrug-resistant pseudomonal and Enterobacter infections \-- Traumatic brain injury, nonverbal, post-tracheostomy and PEG \-- Chronically bedbound with sacral ulcer \-- History of endocarditis (diagnosed 2013) \-- Seizure disorder Assessment Mr. Molina is a 49-year-old male with a significant past medical history of traumatic brain injury with nonverbal status, chronic tracheostomy, percutaneous gastrostomy tube, seizure disorder, history of endocarditis in 2033, and multiple prior admissions for sepsis and pneumonia. He is chronically bedbound. The patient presents with shortness of breath. On admission, he was febrile to 102F and was requiring 8L O2 via trach collar. Initial blood pressure was 132/73, pulse 115, respiratory rate 23, and lactic acid 1.6. He also has a history of recurrent aspiration and multidrug-resistant respiratory pathogens. During this admission, he was started empirically on vancomycin and Zosyn, though he has a documented Zosyn allergy; however, no reaction was observed during this hospitalization. Chest X-ray showed no acute disease but diminished lung volumes. CT chest, abdomen, and pelvis revealed trace bilateral pleural effusions, diffuse bilateral ground glass opacities, cardiomegaly with trace pericardial effusion, cholelithiasis, nonobstructive right nephrolithiasis, small pelvic ascites, and a ventriculoperitoneal shunt. Sputum culture growing gram-negative rods, likely resistant organism. He has been afebrile except for fevers on admission, remains oxygen-dependent but has weaned to 6L trach collar. No ongoing signs of sepsis or persistent pneumonia; WBC and clinical trajectory stable. Sacral ulcer is present, with blanching erythema but without open wound; managed with wound care and regular repositioning. 12/23: awaiting sputum culture results , Ct chest abdomen and pelvis was alrgely unremarkable except for diffuse oppacities in the lungs bilaterally 12/24: continue aspiration precautions . preliminary respiratory cultures showing gram negative rods . patient has history of carbapenem resistance of note 12/25: clinically doing well . growing ESBL e coli and possible carbapenem resistant pseudomonas and multidrug resistant all of which are sensitive to meropenem 12/26: largely suspect organism found are colonization of lungs and does not have true pneumonia, most likely has aspiration pneumonitis . decolonization may help with this , good aspiration precautions such as clear airway clearance , suctioning , upright positions will likely lead to fewer recurrences of fever and sluggish mentation Plan: - to appropriately cover carbapenem resistent pseudomonas would as levofloxacin 750 mg daily for minimum 5 day course - stop meropenem , switch to ertapenum 1 gram daily - f/u on carbapenem resistance , may need to broaden out to cover these organisms \-- Monitor closely for new/worsening fever, rising WBC, increased sputum, or escalating oxygen requirements \-- If clinical deterioration or new signs of infection, consider Zerbaxa for 7 days given history of multidrug resistance \-- Maintain strict aspiration precautions, mindful of ongoing aspiration risk due to PEG and neurologic impairment \-- Continue sacral ulcer care and frequent repositioning to prevent pressure injury progression \-- Continue seizure precautions and routine monitoring \-- Echocardiogram and LEYDI negative for ongoing endocarditis \-- Monitor laboratory trends and reassess clinically Isolation Precautions: Standard Plan discussed with: Other Dietary Evaluation Review Comments: 1. Recommend peptide based TF Pivot 1.5Cal @45ml/hr providing 101g protein 1620kcal supporting pt's protein needs @120% and energy needs @93%. 2. Reassess when pt passes EDUCATION REVIEWER eval and able to have PO feedings Expected Outcomes/Goals: prevent wt loss, improve nutrition status EDGARD JOHNSON MD Dec 26, 2024 17:31
[2024-12-26] MEDS: ERTAPENEM SOD INJ 1 GM in SODIUM CHL 0.9% 50 ML IV SCH (20:17)
--- NOTE | 2024-12-26 23:33 | DVHPN2 ---
Progress Note - Dictate Date Seen: Dec 26, 2024 Medical Necessity Reason Pt with a Central, PICC or Fol: Yes The following are medically ne: Willis Catheter Reason for willis catheter: Strict I&O Subjective [facility] Patient seen and examined at bedside. Remains on supplemental oxygen via trach Overnight events reviewed. vital signs Vital Sign Date Time Temp Pulse Resp B/P (MAP) Pulse Ox O2 Delivery O2 Flow Rate FiO2 12/26/24 22:52 74 20 99 12/26/24 22:44 T-piece 6.0 12/26/24 22:44 28 28 12/26/24 21:00 97.7 119/67 (84) 97.7 Total Intake and Output 12/25/24 12/25/24 12/26/24 15:00 23:00 07:00 Intake Total 360 ml 710 ml 1000 ml Output Total 2350 ml 1400 ml Balance 360 ml -1640 ml -400 ml medications Current Medications Medications Dose Ordered Sig/Ata Route Start Time Stop Time Status Last Admin Dose Admin Sodium Chloride 1,000 ml @ 120 mls/hr Q8H20M IV 12/11/24 09:56 12/26/24 20:35 120 MLS/HR Ondansetron HCl 4 mg Q4HP PRN IV 12/11/24 08:45 Nitroglycerin 0.4 mg Q5MINP PRN SL 12/11/24 08:45 Ascorbic Acid 500 mg BID GT 12/11/24 10:00 12/26/24 21:53 500 MG Baclofen 20 mg Q6HR GT 12/11/24 12:00 12/26/24 18:01 20 MG Multivitamins 1 tab DAILY GT 12/11/24 10:00 12/26/24 11:09 1 TAB Polyethylene Glycol 17 gm DAILY PO 12/11/24 10:00 12/19/24 09:06 17 GM Lacosamide 150 mg BID GT 12/11/24 10:00 12/26/24 21:53 150 MG Levetiracetam 1,000 mg BID GT 12/11/24 10:00 12/26/24 21:52 1,000 MG Acetaminophen 650 mg Q6HP PRN [place] 12/11/24 09:45 Acetaminophen 650 mg Q6HP PRN PO 12/11/24 10:00 Enteral Nutritional Formula 1,000 ml 60ML/HR GT 12/13/24 04:15 12/25/24 23:31 1,000 ML Enoxaparin Sodium 40 mg DAILY SC 12/23/24 10:00 12/26/24 11:10 40 MG Pantoprazole Sodium 40 mg DAILY IV 12/23/24 10:00 12/26/24 11:09 40 MG Vancomycin HCl 200 ml @ 200 mls/hr Q10H IV 12/23/24 16:00 UNV Ipratropium [place] 0.5 mg Q8HR [facility] 12/25/24 14:00 12/26/24 22:44 0.5 MG Levalbuterol HCl 0.625 mg Q8HR NEB 12/25/24 14:00 12/26/24 22:44 0.625 MG Ertapenem 1 gm/ Sodium Chloride 50 ml @ 100 mls/hr DAILY@2100 IV 12/26/24 21:00 12/26/24 20:17 100 MLS/HR Levofloxacin/ Dextrose 150 ml @ 100 mls/hr DAILY@1700 IV 12/26/24 18:15 12/26/24 18:24 100 MLS/HR objective Gen.: Patient lying in bed in no apparent distress. On supplemental oxygen via trach Head: Normocephalic, atraumatic. Eyes: EOMI/PERRLA. Ears: Normal hearing. Normal anatomy. Neck/trachea: Trach in place. Nose: Normal external anatomy. Mouth: Moist mucous membranes. Chest: Decreased air entry bilaterally. No wheezing or rhonchi. Cardiovascular: Positive S1, positive S2. Regular rate and rhythm. Abdomen: Positive bowel sounds in all 4 quadrants. Soft, non-tender, non- distended. : Deferred. Rectal: Deferred. Skin: Warm, dry. Intact. Extremities: 2+ radial pulses bilaterally. No lower extremity edema. Neuro: Awake, alert, oriented x3. Nonverbal at baseline. No gross motor or sensory deficits. Cranial nerves II through XII intact. Quadriplegia. laboratory and microbiology Laboratory Tests 12/26/24 04:48 12/25/24 05:15 Test 12/26/24 04:48 Range/Units Serum Glucose 86 74-106 mg/dL Assessment/Plan Impression: Chronic hypoxic respiratory failure S/p tracheostomy Pleural effusion, trace Compressive atelectasis GGO on imaging S/p ventriculoperitoneal shunt Ascites Overweight, BMI 28.5 Events: Remains on supplemental oxygen On 6 LPM humidified air via trach Afebrile. No overnight events. Continue trach care Pulmonary toileting Continue bronchodilators/Mucomyst Chest physiotherapy Sputum cultures positive for E. coli Complete antibiotics per ID recommendations Head of bed elevation Aspiration precautions Tube feeds for nutritional support Continue Lovenox for DVT ppx Labs and imaging reviewed. Rest of plan as noted below. Plan: Supplemental oxygen On 6 liters via T-piece Titrate to keep O2 sats above 92%. Trach care per RT Pulmonary toileting Continue bronchodilators. Continue antibiotics Follow up cultures Monitor renal function. Monitor electrolytes. Supplement as necessary. Monitor ins and outs. Wound care. DVT prophylaxis - Lovenox. CT chest, abdomen and pelvis on 12/17/24 revealed trace bilateral pleural effusions, bibasilar atelectasis and diffuse bilateral ground-glass opacity. Cardiomegaly and trace pericardial effusion. Cholelithiasis. Nonobstructive right nephrolithiasis. Percutaneous gastrostomy. Ventriculoperitoneal shunt. Tracheostomy. Small volume pelvic ascites. Labs and imaging reviewed. Prognosis: Poor given patient's multiple co-morbidities. Rest of plan per hospitalist and other consultants. Thank you, Dr. Kothari, for allowing me to participate in this patient's care. Further recommendations will depend on the patient's clinical course. Please do not hesitate to contact me if you have any questions or concerns. This medical document was created using an electronic medical record system with [employer] dictation system. Although these documentations are being carefully reviewed, there may still be some phonetic and typographical changes. The errors are purely typographical, due to imperfection on the software program, and do not reflect any compromise in the patient's medical care. Dietary Evaluation Review Comments: 1. Recommend peptide based TF Pivot 1.5Cal @45ml/hr providing 101g protein 1620kcal supporting pt's protein needs @120% and energy needs @93%. 2. Reassess when pt passes LIBRARY CUSTOMER SERVICE CLERK eval and able to have PO feedings Expected Outcomes/Goals: prevent wt loss, improve nutrition status Plan discussed with: Other (RN Noemy/Mother) HOMERO PENA MD Dec 26, 2024 23:33
[2024-12-27] VITALS (16 sets, daily range): BP systolic 113–144; BP diastolic 66–83; PULSE 62–84; RESP 18–24; TEMP 97.7–98.9; O2SAT 93–100
[2024-12-27 07:34] LABS: Hematocrit 39.1 % (41.0-53.0); Hemoglobin 13.6 g/dL (13.5-17.5); Mean Corpuscular Hemoglobin 30.0 pg (28.0-32.0); Mean Corpuscular Volume 86.3 fL (80.0-100.0); Nucleated Red Blood Cells % 0.1 %
[2024-12-27 07:48] LABS: Alkaline Phosphatase 92 U/L (46-116); Anion Gap 8 (5-15); BUN/Creatinine Ratio 14.5 (10.0-20.0); Carbon Dioxide 28 mmol/L (20-31); Chloride 107 mmol/L (98-107); Glucose 94 mg/dL (74-106); Potassium 3.9 mmol/L (3.5-5.1); Sodium 143 mmol/L (136-145); Total Protein 5.7 g/dL (5.7-8.2)
[2024-12-27 07:49] LABS: Albumin 3.4 g/dL (3.2-4.8); Bilirubin, Total 0.4 mg/dL (0.2-1.0)
[2024-12-27 07:50] LABS: Alanine Aminotransferase 68 U/L (7-40); Blood Urea Nitrogen 8 mg/dL (9-23); Calcium 8.4 mg/dL (8.7-10.4)
--- NOTE | 2024-12-27 09:06 | DVHPN2 ---
Subjective The patient is nonverbal; still on 6 L/min oxygen therapy; no low-grade fever overnight Reviewed: Care Plan, H&P, Labs, Medications, Previous Orders, Radiology, Other (Consultations) Changes from previous H/P or p: No Changes Objective Vitals Vital Signs Date Time Temp Pulse Resp B/P (MAP) Pulse Ox O2 Delivery O2 Flow Rate FiO2 12/27/24 08:00 Trach Collar 6 N/A 12/27/24 04:59 98.0 68 20 113/66 (82) 99 98.0 Intake/Output Intake and Output 12/27/24 07:00 Intake Total 1520 ml Output Total 2150 ml Balance -630 ml IV Total 1220 ml Tube Feeding 240 ml Other 60 ml Output Urine Total 2150 ml Stool Total 0 ml General Appearance: No acute distress, Other (Nonverbal) HEENT: Other (Left scalp deformity from previous craniotomy/traumatic brain injury) Neck: Other (Tracheostomy in place) Lungs: Other (Few crackles bilateral lungs basis) Cardiovascular: Regular rate, Normal S1, Normal S2 Abdomen: Normal bowel sounds, Soft, Other (G-tube in place) Genitourinary: Other (El's in place) Musculoskeletal: Other (Contracted/Wasted muscles) Extremities: No edema Neuro: Other (Quadriplegic; nonverbal) Skin: Other (No ulcers and no deep tissue injuries found on December 25, 2024; refer to nursing documentation for more details) Psych/Mental Status: Other (Nonverbal) Medications Current Medications Medications Dose Ordered Sig/Ata Route Start Time Stop Time Status Last Admin Dose Admin Sodium Chloride 1,000 ml @ 120 mls/hr Q8H20M IV 12/11/24 09:56 12/27/24 04:40 120 MLS/HR Ondansetron HCl 4 mg Q4HP PRN IV 12/11/24 08:45 Nitroglycerin 0.4 mg Q5MINP PRN SL 12/11/24 08:45 Ascorbic Acid 500 mg BID GT 12/11/24 10:00 12/26/24 21:53 500 MG Baclofen 20 mg Q6HR GT 12/11/24 12:00 12/27/24 04:48 20 MG Multivitamins 1 tab DAILY GT 12/11/24 10:00 12/26/24 11:09 1 TAB Polyethylene Glycol 17 gm DAILY PO 12/11/24 10:00 12/19/24 09:06 17 GM Lacosamide 150 mg BID GT 12/11/24 10:00 12/26/24 21:53 150 MG Levetiracetam 1,000 mg BID GT 12/11/24 10:00 12/26/24 21:52 1,000 MG Acetaminophen [address] 12/11/24 09:45 Acetaminophen 650 mg Q6HP PRN PO 12/11/24 10:00 Enteral Nutritional Formula 1,000 ml 60ML/HR GT 12/13/24 04:15 12/26/24 23:48 1,000 ML Enoxaparin Sodium 40 mg DAILY SC 12/23/24 10:00 12/26/24 11:10 40 MG Pantoprazole Sodium 40 mg DAILY IV 12/23/24 10:00 12/26/24 11:09 40 MG Vancomycin HCl 200 ml @ 200 mls/hr Q10H IV 12/23/24 16:00 UNV Ipratropium [place] 0.5 mg Q8HR NEB 12/25/24 14:00 12/27/24 06:48 0.5 MG Levalbuterol HCl 0.625 mg Q8HR NEB 12/25/24 14:00 12/27/24 06:48 0.625 MG Ertapenem 1 gm/ Sodium Chloride 50 ml @ 100 mls/hr DAILY@2100 IV 12/26/24 21:00 12/26/24 20:17 100 MLS/HR Levofloxacin/ Dextrose 150 ml @ 100 mls/hr DAILY@1700 IV 12/26/24 18:15 12/26/24 18:24 100 MLS/HR Laboratory Results Laboratory Tests 12/27/24 06:42 Chemistry Test 12/27/24 06:42 Albumin 3.4 g/dL (3.2-4.8) Calcium Level 8.4 mg/dL (8.7-10.4) L Total Protein 5.7 g/dL (5.7-8.2) LFT Test 12/27/24 06:42 Alanine Aminotransferase (ALT) 68 U/L (7-40) H Alkaline Phosphatase 92 U/L (46-116) Aspartate Amino Transferase (AST) 53 U/L (13-40) H Total Bilirubin 0.4 mg/dL (0.2-1.0) Urinalysis Test 12/11/24 06:00 12/15/24 02:00 Urine Granular Casts Few /lpf (0) Urine Yeast (Budding) Occasional /hpf (None Urine Color Light-yellow (Yellow) Urine Clarity Clear (Clear) Urine pH 6.0 (5.0-9.0) Urine Specific [place] 1.010 (1.001-1.035) Urine Protein Negative (Negative) Urine Ketones Negative (Negative) Urine Blood 2+ /uL (Negative) H Urine Nitrite Negative (Negative) Urine Bilirubin Negative (Negative) Urine Urobilinogen Normal mg/dL (Negative) Urine Leukocyte Esterase Negative /uL (Negative) Urine RBC 49 /hpf (0 - 3) Urine Microscopic WBC 2 /HPF (0-3) Urine Squamous Epithelial Cells None seen /hpf (<5) Urine Bacteria None seen /hpf (None Seen) Urine Mucus Few (None Seen) Urine Glucose Normal mg/dL (Normal) Microbiology Microbiology Date/Time Source Procedure Growth Status 12/20/24 01:31 Trachea Gram Stain - Final Resulted 12/20/24 01:31 Respiratory Culture - Preliminary Escherichia coli - ESBL Pseudomonas aeruginosa Citrobacter koseri Resulted 12/11/24 06:00 Voided Urine Urine Culture - Final Complete 12/11/24 02:57 Blood Blood Culture - Final NO GROWTH AFTER 5 DAYS OF INCUBATION. Complete Labs and/or images reviewed: Labs reviewed by me, Image(s) reviewed by me Assessment/Plan Assessment/Plan Covering: # Sepsis with lactic acidosis due to aspiration pneumonia due to ESBL E coli, Pseudomonas aeruginosa, and Citrobacter koseri # Acute on chronic hypoxic respiratory failure due to aspiration pneumonia due to ESBL E coli, Pseudomonas aeruginosa, and Citrobacter koseri, pleural effusion, and compressive atelectasis; chronic ground-glass opacities on imaging # Hypertensive heart disease with chronic diastolic heart failure; not in exacerbation; with a history of endocarditis # Traumatic brain injury status post left craniotomy, status post G-tube, status post tracheostomy; status post [employer] PARALEGAL shunt; quadriplegic; nonverbal; bed-bound # 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 # Elevated LFTs; most likely due to medications side effects # Overweight Received last dose of IV vancomycin 12/23/2024; received last dose of cefepime 12/22/2024 Decision regarding continuation of IV antibiotics as per ID and pulmonology Continue oxygen therapy as needed Reviewed the available lab work and imaging studies Urine and blood cultures are negative so far ESBL E coli was the final results of sputum cultures; started on IV meropenem by ID on December 25, 2024 and received a dose on December 26, 2024; switched to IV ertapenem by ID later in the day on December 26, 2024 Continue tube feeding as per taxonomy teacher Continue monitoring liver and kidney functions Continue tracheostomy care Continue wound prevention care by changing the position of the patient every 2 hours Continue chest percussion therapy Aspiration and seizures precautions Continue antiseizure medications Avoid hepatotoxic agents DVT and GI prophylaxis Late Entry. This medical document was created using an electronic medical record system with computerized dictation system. Although this document has been carefully reviewed, there might still be some phonetic and typographical errors. These areas are purely typographical due to imperfections of the software programs, and do not reflect any compromise in the patient's medical care. Plan discussed with: Other (Mother (will be updated at bedside or by the phone later today); nurse) My Orders Orders - LEANDER CUEVA MD Procedure Category Date Status Time Comprehensive LAB 12/28/24 Verified Metabolic Panel 04:00 Date of Service: Dec 27, 2024 Billing Provider: LEANDER CUEVA MD Common Visit Codes: [id number] INP/OBS CARE(HIGH) LEANDER CUEVA MD Dec 27, 2024 09:06
--- NOTE | 2024-12-27 22:18 | DVHPN2 ---
Consult Progress Note Date Seen: Dec 27, 2024 Subjective Patient reports: Feels better (tolerating invanz and levofloxacin, no changes to sputum or respiratory effort, ) Objective vital signs Vital Sign Date Time Temp Pulse Resp B/P (MAP) Pulse Ox O2 Delivery O2 Flow Rate FiO2 12/27/24 22:01 80 18 100 12/27/24 21:53 T-piece 6 28 28 12/27/24 16:57 98.9 116/68 (84) 98.9 Total Intake and Output 12/26/24 12/26/24 12/27/24 15:00 23:00 07:00 Intake Total 50 ml 520 ml 950 ml Output Total 650 ml 1500 ml Balance 50 ml -130 ml -550 ml medications Current Medications Medications Dose Ordered Sig/Ata Route Start Time Stop Time Status Last Admin Dose Admin Sodium Chloride 1,000 ml @ 120 mls/hr Q8H20M IV 12/11/24 09:56 12/27/24 13:04 120 MLS/HR Ondansetron HCl 4 mg Q4HP PRN IV 12/11/24 08:45 Nitroglycerin 0.4 mg Q5MINP PRN SL 12/11/24 08:45 Ascorbic Acid 500 mg BID GT 12/11/24 10:00 12/27/24 21:09 500 MG Baclofen 20 mg Q6HR GT 12/11/24 12:00 12/27/24 17:57 20 MG Multivitamins 1 tab DAILY GT 12/11/24 10:00 12/27/24 10:38 1 TAB Polyethylene Glycol 17 gm DAILY PO 12/11/24 10:00 12/27/24 10:45 17 GM Lacosamide 150 mg BID GT 12/11/24 10:00 12/27/24 21:09 150 MG Levetiracetam 1,000 mg BID GT 12/11/24 10:00 12/27/24 21:08 1,000 MG Acetaminophen 650 mg Q6HP PRN [place] 12/11/24 09:45 Acetaminophen 650 mg Q6HP PRN PO 12/11/24 10:00 Enteral Nutritional Formula 1,000 ml 60ML/HR GT 12/13/24 04:15 12/27/24 21:09 1,000 ML Enoxaparin Sodium 40 mg DAILY SC 12/23/24 10:00 12/27/24 10:30 40 MG Pantoprazole Sodium 40 mg DAILY IV 12/23/24 10:00 12/27/24 10:27 40 MG Vancomycin HCl 200 ml @ 200 mls/hr Q10H IV 12/23/24 16:00 UNV Ipratropium [place] 0.5 mg Q8HR [facility] 12/25/24 14:00 12/27/24 21:53 0.5 MG Levalbuterol HCl 0.625 mg Q8HR [facility] 12/25/24 14:00 12/27/24 21:53 0.625 MG Ertapenem 1 gm/ Sodium Chloride 50 ml @ 100 mls/hr DAILY@2100 IV 12/26/24 21:00 12/27/24 20:22 100 MLS/HR Levofloxacin/ Dextrose 150 ml @ 100 mls/hr DAILY@1700 IV 12/26/24 18:15 12/27/24 17:01 100 MLS/HR Physical Exam: General: NAD Neck: Supple. No masses. HEENT: PERRL. Normal lids and conjunctiva. Moist mucous membranes. Oropharynx without lesions, exudates or excessive erythema. Normal appearance of the external aspects of the nose and ears. Heart: Regular rhythm, normal rate. No murmur. No lower extremity edema. Lungs: Normal respiratory effort. Clear to auscultation bilaterally. No wheezes. No crackles. Abdomen: Soft. Non-tender. Non-distended. No masses or abdominal hernia. Msk: No digital cyanosis. Normal strength and tone in all 4 limbs Skin: Warm and dry, no rashes. Blanching erythema over sacrum, no open wounds. Neuro: Alert. No facial droop or slurred speech. Extra-ocular movements intact. Sensation intact to soft touch in all 4 limbs. Psych: Appropriate mood. Full affect. Oriented to person, place, time, and situation. laboratory and microbiology Laboratory Tests 12/27/24 06:42 Test 12/27/24 06:42 Range/Units Serum Glucose 94 74-106 mg/dL Problem List/Assessment/Plan Problem List/Assessment/Plan ASSESSMENT AND PLAN: ID Problem List: \-- Recurrent aspiration and aspiration pneumonia \-- Multidrug-resistant pseudomonal and Enterobacter infections \-- Traumatic brain injury, nonverbal, post-tracheostomy and PEG \-- Chronically bedbound with sacral ulcer \-- History of endocarditis (diagnosed 2013) \-- Seizure disorder Assessment Mr. Molina is a 49-year-old male with a significant past medical history of traumatic brain injury with nonverbal status, chronic tracheostomy, percutaneous gastrostomy tube, seizure disorder, history of endocarditis in 2033, and multiple prior admissions for sepsis and pneumonia. He is chronically bedbound. The patient presents with shortness of breath. On admission, he was febrile to 102F and was requiring 8L O2 via trach collar. Initial blood pressure was 132/73, pulse 115, respiratory rate 23, and lactic acid 1.6. He also has a history of recurrent aspiration and multidrug-resistant respiratory pathogens. During this admission, he was started empirically on vancomycin and Zosyn, though he has a documented Zosyn allergy; however, no reaction was observed during this hospitalization. Chest X-ray showed no acute disease but diminished lung volumes. CT chest, abdomen, and pelvis revealed trace bilateral pleural effusions, diffuse bilateral ground glass opacities, cardiomegaly with trace pericardial effusion, cholelithiasis, nonobstructive right nephrolithiasis, small pelvic ascites, and a ventriculoperitoneal shunt. Sputum culture growing gram-negative rods, likely resistant organism. He has been afebrile except for fevers on admission, remains oxygen-dependent but has weaned to 6L trach collar. No ongoing signs of sepsis or persistent pneumonia; WBC and clinical trajectory stable. Sacral ulcer is present, with blanching erythema but without open wound; managed with wound care and regular repositioning. 12/23: awaiting sputum culture results , Ct chest abdomen and pelvis was alrgely unremarkable except for diffuse oppacities in the lungs bilaterally 12/24: continue aspiration precautions . preliminary respiratory cultures showing gram negative rods . patient has history of carbapenem resistance of note 12/25: clinically doing well . growing ESBL e coli and possible carbapenem resistant pseudomonas and multidrug resistant all of which are sensitive to meropenem 12/26: largely suspect organism found are colonization of lungs and does not have true pneumonia, most likely has aspiration pneumonitis . decolonization may help with this , good aspiration precautions such as clear airway clearance , suctioning , upright positions will likely lead to fewer recurrences of fever and sluggish mentation Plan: - to appropriately cover carbapenem resistent pseudomonas would add levofloxacin 750 mg daily for minimum 5 day course - stop meropenem , switch to ertapenum 1 gram daily - f/u on carbapenem resistance , may need to broaden out to cover these organisms \-- Monitor closely for new/worsening fever, rising WBC, increased sputum, or escalating oxygen requirements \-- If clinical deterioration or new signs of infection, consider Zerbaxa for 7 days given history of multidrug resistance \-- Maintain strict aspiration precautions, mindful of ongoing aspiration risk due to PEG and neurologic impairment \-- Continue sacral ulcer care and frequent repositioning to prevent pressure injury progression \-- Continue seizure precautions and routine monitoring \-- Echocardiogram and LEYDI negative for ongoing endocarditis \-- Monitor laboratory trends and reassess clinically Isolation Precautions: Standard Plan discussed with: Patient Dietary Evaluation Review Comments: 1. Recommend peptide based TF Pivot 1.5Cal @45ml/hr providing 101g protein 1620kcal supporting pt's protein needs @120% and energy needs @93%. 2. Reassess when pt passes LOAN ORIGINATOR eval and able to have PO feedings Expected Outcomes/Goals: prevent wt loss, improve nutrition status EDGARD JOHNSON MD Dec 27, 2024 22:18
--- NOTE | 2024-12-27 23:42 | DVHPN2 ---
Progress Note - Dictate Date Seen: Dec 27, 2024 Medical Necessity Reason Pt with a Central, PICC or Fol: Yes The following are medically ne: Willis Catheter Reason for willis catheter: Strict I&O Subjective [facility] Patient seen and examined at bedside. Remains on supplemental oxygen via trach Overnight events reviewed. vital signs Vital Sign Date Time Temp Pulse Resp B/P (MAP) Pulse Ox O2 Delivery O2 Flow Rate FiO2 12/27/24 22:01 80 18 100 12/27/24 21:53 T-piece 6 28 28 12/27/24 16:57 98.9 116/68 (84) 98.9 Total Intake and Output 12/26/24 12/26/24 12/27/24 15:00 23:00 07:00 Intake Total 50 ml 520 ml 950 ml Output Total 650 ml 1500 ml Balance 50 ml -130 ml -550 ml medications Current Medications Medications Dose Ordered Sig/Ata Route Start Time Stop Time Status Last Admin Dose Admin Sodium Chloride 1,000 ml @ 120 mls/hr Q8H20M IV 12/11/24 09:56 12/27/24 13:04 120 MLS/HR Ondansetron HCl 4 mg Q4HP PRN IV 12/11/24 08:45 Nitroglycerin 0.4 mg Q5MINP PRN SL 12/11/24 08:45 Ascorbic Acid 500 mg BID GT 12/11/24 10:00 12/27/24 21:09 500 MG Baclofen 20 mg Q6HR GT 12/11/24 12:00 12/27/24 23:37 20 MG Multivitamins 1 tab DAILY GT 12/11/24 10:00 12/27/24 10:38 1 TAB Polyethylene Glycol 17 gm DAILY PO 12/11/24 10:00 12/27/24 10:45 17 GM Lacosamide 150 mg BID GT 12/11/24 10:00 12/27/24 21:09 150 MG Levetiracetam 1,000 mg BID GT 12/11/24 10:00 12/27/24 21:08 1,000 MG Acetaminophen 650 mg Q6HP PRN [place] 12/11/24 09:45 Acetaminophen 650 mg Q6HP PRN PO 12/11/24 10:00 Enteral Nutritional Formula 1,000 ml 60ML/HR GT 12/13/24 04:15 12/27/24 21:09 1,000 ML Enoxaparin Sodium 40 mg DAILY SC 12/23/24 10:00 12/27/24 10:30 40 MG Pantoprazole Sodium 40 mg DAILY IV 12/23/24 10:00 12/27/24 10:27 40 MG Vancomycin HCl 200 ml @ 200 mls/hr Q10H IV 12/23/24 16:00 UNV Ipratropium [place] 0.5 mg Q8HR NEB 12/25/24 14:00 12/27/24 21:53 0.5 MG Levalbuterol HCl 0.625 mg Q8HR NEB 12/25/24 14:00 12/27/24 21:53 0.625 MG Ertapenem 1 gm/ Sodium Chloride 50 ml @ 100 mls/hr DAILY@2100 IV 12/26/24 21:00 12/27/24 20:22 100 MLS/HR Levofloxacin/ Dextrose 150 ml @ 100 mls/hr DAILY@1700 IV 12/26/24 18:15 12/27/24 17:01 100 MLS/HR objective Gen.: Patient lying in bed in no apparent distress. On supplemental oxygen via trach Head: Normocephalic, atraumatic. Eyes: EOMI/PERRLA. Ears: Normal hearing. Normal anatomy. Neck/trachea: Trach in place. Nose: Normal external anatomy. Mouth: Moist mucous membranes. Chest: Decreased air entry bilaterally. No wheezing or rhonchi. Cardiovascular: Positive S1, positive S2. Regular rate and rhythm. Abdomen: Positive bowel sounds in all 4 quadrants. Soft, non-tender, non- distended. : Deferred. Rectal: Deferred. Skin: Warm, dry. Intact. Extremities: 2+ radial pulses bilaterally. No lower extremity edema. Neuro: Awake, alert, oriented x3. Nonverbal at baseline. No gross motor or sensory deficits. Cranial nerves II through XII intact. Quadriplegia. laboratory and microbiology Laboratory Tests 12/27/24 06:42 Test 12/27/24 06:42 Range/Units Serum Glucose 94 74-106 mg/dL Assessment/Plan Impression: Chronic hypoxic respiratory failure S/p tracheostomy Pleural effusion, trace Compressive atelectasis GGO on imaging S/p ventriculoperitoneal shunt Ascites Overweight, BMI 28.5 Events: Remains on supplemental oxygen On 6 LPM humidified air via trach Afebrile. No overnight events. Continue trach care Pulmonary toileting Recommend q.2 hour turns. Continue bronchodilators/Mucomyst Chest physiotherapy Sputum cultures positive for E. coli Complete antibiotics per ID recommendations ID recs appreciated. Head of bed elevation Aspiration precautions Tube feeds for nutritional support Continue Lovenox for DVT ppx Labs and imaging reviewed. Rest of plan as noted below. Plan: Supplemental oxygen On 6 liters via T-piece Titrate to keep O2 sats above 92%. Trach care per RT Pulmonary toileting Continue bronchodilators. Continue antibiotics Follow up cultures Monitor renal function. Monitor electrolytes. Supplement as necessary. Monitor ins and outs. Wound care. DVT prophylaxis - Lovenox. CT chest, abdomen and pelvis on 12/17/24 revealed trace bilateral pleural effusions, bibasilar atelectasis and diffuse bilateral ground-glass opacity. Cardiomegaly and trace pericardial effusion. Cholelithiasis. Nonobstructive right nephrolithiasis. Percutaneous gastrostomy. Ventriculoperitoneal shunt. Tracheostomy. Small volume pelvic ascites. Labs and imaging reviewed. Prognosis: Poor given patient's multiple co-morbidities. Rest of plan per hospitalist and other consultants. Thank you, Dr. Kothari, for allowing me to participate in this patient's care. Further recommendations will depend on the patient's clinical course. Please do not hesitate to contact me if you have any questions or concerns. This medical document was created using an electronic medical record system with [employer] dictation system. Although these documentations are being carefully reviewed, there may still be some phonetic and typographical changes. The errors are purely typographical, due to imperfection on the software program, and do not reflect any compromise in the patient's medical care. Dietary Evaluation Review Comments: 1. Recommend peptide based TF Pivot 1.5Cal @45ml/hr providing 101g protein 1620kcal supporting pt's protein needs @120% and energy needs @93%. 2. Reassess when pt passes STRAW HAT BRIM CUTTER OPERATOR eval and able to have PO feedings Expected Outcomes/Goals: prevent wt loss, improve nutrition status Plan discussed with: Other (CRYSTAL Wright) HOMERO PENA MD Dec 27, 2024 23:42
[2024-12-28] VITALS (14 sets, daily range): BP systolic 114–128; BP diastolic 54–74; PULSE 60–93; RESP 16–20; TEMP 97.1–98.5; O2SAT 93–100
[2024-12-28 06:38] LABS: Albumin 3.6 g/dL (3.2-4.8); Alkaline Phosphatase 97 U/L (46-116); Anion Gap 8 (5-15); BUN/Creatinine Ratio 11.1 (10.0-20.0); Bilirubin, Total 0.4 mg/dL (0.2-1.0); Carbon Dioxide 27 mmol/L (20-31); Chloride 106 mmol/L (98-107); Glucose 100 mg/dL (74-106); Potassium 3.8 mmol/L (3.5-5.1); Sodium 141 mmol/L (136-145); Total Protein 6.0 g/dL (5.7-8.2)
[2024-12-28 06:53] LABS: Alanine Aminotransferase 83 U/L (7-40); Blood Urea Nitrogen 6 mg/dL (9-23); Calcium 8.5 mg/dL (8.7-10.4)
--- NOTE | 2024-12-28 15:05 | DVHPN2 ---
Subjective The patient is nonverbal; still on 6 L/min oxygen therapy; no low-grade fever overnight Reviewed: Care Plan, H&P, Labs, Medications, Previous Orders, Radiology, Other (Consultations) Changes from previous H/P or p: No Changes Objective Vitals Vital Signs Date Time Temp Pulse Resp B/P (MAP) Pulse Ox O2 Delivery O2 Flow Rate FiO2 12/28/24 13:10 82 18 100 12/28/24 13:02 T-piece 6.0 12/28/24 13:02 28 28 12/28/24 13:00 98.1 114/54 (74) 98.1 Intake/Output Intake and Output 12/28/24 07:00 Intake Total 1500 ml Output Total 2775 ml Balance -1275 ml Intake Oral 0 ml IV Total 600 ml Tube Feeding 900 ml Output Urine Total 2775 ml # Bowel Movements 1 General Appearance: No acute distress, Other (Nonverbal) HEENT: Other (Left scalp deformity from previous craniotomy/traumatic brain injury) Neck: Other (Tracheostomy in place) Lungs: Other (Few crackles bilateral lungs basis) Cardiovascular: Regular rate, Normal S1, Normal S2 Abdomen: Normal bowel sounds, Soft, Other (G-tube in place) Genitourinary: Other (El's in place) Musculoskeletal: Other (Contracted/Wasted muscles) Extremities: No edema Neuro: Other (Quadriplegic; nonverbal) Skin: Other (No ulcers and no deep tissue injuries found on December 25, 2024; refer to nursing documentation for more details) Psych/Mental Status: Other (Nonverbal) Medications Current Medications Medications Dose Ordered Sig/Ata Route Start Time Stop Time Status Last Admin Dose Admin Sodium Chloride 1,000 ml @ 120 mls/hr Q8H20M IV 12/11/24 09:56 12/28/24 12:27 120 MLS/HR Ondansetron HCl 4 mg Q4HP PRN IV 12/11/24 08:45 Nitroglycerin 0.4 mg Q5MINP PRN SL 12/11/24 08:45 Ascorbic Acid 500 mg BID GT 12/11/24 10:00 12/28/24 10:16 500 MG Baclofen 20 mg Q6HR GT 12/11/24 12:00 12/28/24 12:27 20 MG Multivitamins 1 tab DAILY GT 12/11/24 10:00 12/28/24 10:16 1 TAB Polyethylene Glycol 17 gm DAILY PO 12/11/24 10:00 12/28/24 10:21 17 GM Lacosamide 150 mg BID GT 12/11/24 10:00 12/28/24 10:19 150 MG Levetiracetam 1,000 mg BID GT 12/11/24 10:00 12/28/24 10:21 1,000 MG Acetaminophen 650 mg Q6HP PRN [place] 12/11/24 09:45 Acetaminophen 650 mg Q6HP PRN PO 12/11/24 10:00 Enteral Nutritional Formula 1,000 ml 60ML/HR GT 12/13/24 04:15 12/27/24 21:09 1,000 ML Enoxaparin Sodium 40 mg DAILY SC 12/23/24 10:00 12/28/24 10:12 40 MG Pantoprazole Sodium 40 mg DAILY IV 12/23/24 10:00 12/28/24 10:12 40 MG Vancomycin HCl 200 ml @ 200 mls/hr Q10H IV 12/23/24 16:00 UNV Ipratropium [place] 0.5 mg Q8HR [facility] 12/25/24 14:00 12/28/24 13:02 0.5 MG Levalbuterol HCl 0.625 mg Q8HR [facility] 12/25/24 14:00 12/28/24 13:02 0.625 MG Ertapenem 1 gm/ Sodium Chloride 50 ml @ 100 mls/hr DAILY@2100 IV 12/26/24 21:00 12/27/24 20:22 100 MLS/HR Levofloxacin/ Dextrose 150 ml @ 100 mls/hr DAILY@1700 IV 12/26/24 18:15 12/27/24 17:01 100 MLS/HR Laboratory Results Laboratory Tests 12/27/24 06:42 12/28/24 05:22 Chemistry Test 12/28/24 05:22 Albumin 3.6 g/dL (3.2-4.8) Calcium Level 8.5 mg/dL (8.7-10.4) L Total Protein 6.0 g/dL (5.7-8.2) LFT Test 12/28/24 05:22 Alanine Aminotransferase (ALT) 83 U/L (7-40) H Alkaline Phosphatase 97 U/L (46-116) Aspartate Amino Transferase (AST) 63 U/L (13-40) H Total Bilirubin 0.4 mg/dL (0.2-1.0) Urinalysis Test 12/11/24 06:00 12/15/24 02:00 Urine Granular Casts Few /lpf (0) Urine Yeast (Budding) Occasional /hpf (None Urine Color Light-yellow (Yellow) Urine Clarity Clear (Clear) Urine pH 6.0 (5.0-9.0) Urine Specific [place] 1.010 (1.001-1.035) Urine Protein Negative (Negative) Urine Ketones Negative (Negative) Urine Blood 2+ /uL (Negative) H Urine Nitrite Negative (Negative) Urine Bilirubin Negative (Negative) Urine Urobilinogen Normal mg/dL (Negative) Urine Leukocyte Esterase Negative /uL (Negative) Urine RBC 49 /hpf (0 - 3) Urine Microscopic WBC 2 /HPF (0-3) Urine Squamous Epithelial Cells None seen /hpf (<5) Urine Bacteria None seen /hpf (None Seen) Urine Mucus Few (None Seen) Urine Glucose Normal mg/dL (Normal) Microbiology Microbiology Date/Time Source Procedure Growth Status 12/20/24 01:31 Trachea Gram Stain - Final Resulted 12/20/24 01:31 Respiratory Culture - Preliminary Escherichia coli - ESBL Pseudomonas aeruginosa Citrobacter koseri Resulted 12/11/24 06:00 Voided Urine Urine Culture - Final Complete 12/11/24 02:57 Blood Blood Culture - Final NO GROWTH AFTER 5 DAYS OF INCUBATION. Complete Labs and/or images reviewed: Labs reviewed by me, Image(s) reviewed by me Assessment/Plan Assessment/Plan Covering: # Sepsis with lactic acidosis due to aspiration pneumonia due to ESBL E coli, Pseudomonas aeruginosa, and Citrobacter koseri # Acute on chronic hypoxic respiratory failure due to aspiration pneumonia due to ESBL E coli, Pseudomonas aeruginosa, and Citrobacter koseri, pleural effusion, and compressive atelectasis; chronic ground-glass opacities on imaging # Hypertensive heart disease with chronic diastolic heart failure; not in exacerbation; with a history of endocarditis # Traumatic brain injury status post left craniotomy, status post G-tube, status post tracheostomy; status post INSURANCE PREMIUM AUDITOR shunt; quadriplegic; nonverbal; bed-bound # 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 # Elevated LFTs; most likely due to medications side effects # Overweight Received last dose of IV vancomycin 12/23/2024; received last dose of cefepime 12/22/2024 Decision regarding continuation of IV antibiotics as per ID and pulmonology Continue oxygen therapy as needed Reviewed the available lab work and imaging studies Urine and blood cultures are negative so far ESBL E coli was the final results of sputum cultures; started on IV meropenem by ID on December 25, 2024 and received a dose on December 26, 2024; switched to IV ertapenem by ID later in the day on December 26, 2024 Continue tube feeding as per refinery operator helper crude unit Continue monitoring liver and kidney functions Continue tracheostomy care Continue wound prevention care by changing the position of the patient every 2 hours Continue chest percussion therapy Aspiration and seizures precautions Continue antiseizure medications Avoid hepatotoxic agents DVT and GI prophylaxis Late Entry. This medical document was created using an electronic medical record system with computerized dictation system. Although this document has been carefully reviewed, there might still be some phonetic and typographical errors. These areas are purely typographical due to imperfections of the software programs, and do not reflect any compromise in the patient's medical care. Plan discussed with: Other (Mother; nurse) Date of Service: Dec 28, 2024 Billing Provider: LEANDER CUEVA MD Common Visit Codes: [id number] INP/OBS CARE(HIGH) LEANDER CUEVA MD Dec 28, 2024 15:05
--- NOTE | 2024-12-28 23:09 | DVHPN2 ---
Progress Note - Dictate Date Seen: Dec 28, 2024 Medical Necessity Reason Pt with a Central, PICC or Fol: Yes The following are medically ne: Willis Catheter Reason for willis catheter: Strict I&O Subjective [facility] Patient seen and examined at bedside. Remains on supplemental oxygen via trach Overnight events reviewed. vital signs Vital Sign Date Time Temp Pulse Resp B/P (MAP) Pulse Ox O2 Delivery O2 Flow Rate FiO2 12/28/24 21:55 88 18 98 12/28/24 21:55 T-piece 6.0 12/28/24 21:55 28 28 12/28/24 16:30 98.5 119/62 (81) 98.5 Total Intake and Output 12/27/24 12/27/24 12/28/24 15:00 23:00 07:00 Intake Total 1500 ml 0 ml Output Total 325 ml 2450 ml Balance 1175 ml -2450 ml medications Current Medications Medications Dose Ordered Sig/Ata Route Start Time Stop Time Status Last Admin Dose Admin Sodium Chloride 1,000 ml @ 120 mls/hr Q8H20M IV 12/11/24 09:56 12/28/24 12:27 120 MLS/HR Ondansetron HCl 4 mg Q4HP PRN IV 12/11/24 08:45 Nitroglycerin 0.4 mg Q5MINP PRN SL 12/11/24 08:45 Ascorbic Acid 500 mg BID GT 12/11/24 10:00 12/28/24 21:31 500 MG Baclofen 20 mg Q6HR GT 12/11/24 12:00 12/28/24 17:39 20 MG Multivitamins 1 tab DAILY GT 12/11/24 10:00 12/28/24 10:16 1 TAB Polyethylene Glycol 17 gm DAILY PO 12/11/24 10:00 12/28/24 10:21 17 GM Lacosamide 150 mg BID GT 12/11/24 10:00 12/28/24 21:31 150 MG Levetiracetam 1,000 mg BID GT 12/11/24 10:00 12/28/24 21:31 1,000 MG Acetaminophen 650 mg Q6HP PRN [place] 12/11/24 09:45 Acetaminophen 650 mg Q6HP PRN PO 12/11/24 10:00 Enteral Nutritional Formula 1,000 ml 60ML/HR GT 12/13/24 04:15 12/28/24 17:51 1,000 ML Enoxaparin Sodium 40 mg DAILY SC 12/23/24 10:00 12/28/24 10:12 40 MG Pantoprazole Sodium 40 mg DAILY IV 12/23/24 10:00 12/28/24 10:12 40 MG Vancomycin HCl 200 ml @ 200 mls/hr Q10H IV 12/23/24 16:00 UNV Ipratropium [place] 0.5 mg Q8HR [facility]B 12/25/24 14:00 12/28/24 21:55 0.5 MG Levalbuterol HCl 0.625 mg Q8HR [facility]B 12/25/24 14:00 12/28/24 21:55 0.625 MG Ertapenem 1 gm/ Sodium Chloride 50 ml @ 100 mls/hr DAILY@2100 IV 12/26/24 21:00 12/28/24 20:18 100 MLS/HR Levofloxacin/ Dextrose 150 ml @ 100 mls/hr DAILY@1700 IV 12/26/24 18:15 12/28/24 17:39 100 MLS/HR objective Gen.: Patient lying in bed in no apparent distress. On supplemental oxygen via trach Head: Normocephalic, atraumatic. Eyes: EOMI/PERRLA. Ears: Normal hearing. Normal anatomy. Neck/trachea: Trach in place. Nose: Normal external anatomy. Mouth: Moist mucous membranes. Chest: Decreased air entry bilaterally. No wheezing or rhonchi. Cardiovascular: Positive S1, positive S2. Regular rate and rhythm. Abdomen: Positive bowel sounds in all 4 quadrants. Soft, non-tender, non- distended. : Deferred. Rectal: Deferred. Skin: Warm, dry. Intact. Extremities: 2+ radial pulses bilaterally. No lower extremity edema. Neuro: Awake, alert, oriented x3. Nonverbal at baseline. No gross motor or sensory deficits. Cranial nerves II through XII intact. Quadriplegia. laboratory and microbiology Laboratory Tests 12/28/24 05:22 12/27/24 06:42 Test 12/28/24 05:22 Range/Units Serum Glucose 100 74-106 mg/dL Assessment/Plan Impression: Chronic hypoxic respiratory failure S/p tracheostomy Pleural effusion, trace Compressive atelectasis GGO on imaging S/p ventriculoperitoneal shunt Ascites Overweight, BMI 28.5 Events: Remains on supplemental oxygen On 6 LPM humidified air via trach Afebrile. No overnight events. Continue trach care Pulmonary toileting Recommend q.2 hour turns. Continue bronchodilators/Mucomyst Chest physiotherapy Sputum cultures positive for E. coli Complete antibiotics per ID recommendations ID recs appreciated. Head of bed elevation Aspiration precautions Tube feeds for nutritional support Continue Lovenox for DVT ppx Labs and imaging reviewed. Rest of plan as noted below. Plan: Supplemental oxygen On 6 liters via T-piece Titrate to keep O2 sats above 92%. Trach care per RT Pulmonary toileting Continue bronchodilators. Continue antibiotics Follow up cultures Monitor renal function. Monitor electrolytes. Supplement as necessary. Monitor ins and outs. Wound care. DVT prophylaxis - Lovenox. CT chest, abdomen and pelvis on 12/17/24 revealed trace bilateral pleural effusions, bibasilar atelectasis and diffuse bilateral ground-glass opacity. Cardiomegaly and trace pericardial effusion. Cholelithiasis. Nonobstructive right nephrolithiasis. Percutaneous gastrostomy. Ventriculoperitoneal shunt. Tracheostomy. Small volume pelvic ascites. Labs and imaging reviewed. Prognosis: Poor given patient's multiple co-morbidities. Rest of plan per hospitalist and other consultants. Thank you, Dr. Kothari, for allowing me to participate in this patient's care. Further recommendations will depend on the patient's clinical course. Please do not hesitate to contact me if you have any questions or concerns. This medical document was created using an electronic medical record system with [employer] dictation system. Although these documentations are being carefully reviewed, there may still be some phonetic and typographical changes. The errors are purely typographical, due to imperfection on the software program, and do not reflect any compromise in the patient's medical care. Dietary Evaluation Review Comments: 1. Recommend peptide based TF Pivot 1.5Cal @45ml/hr providing 101g protein 1620kcal supporting pt's protein needs @120% and energy needs @93%. 2. Reassess when pt passes HOT DIP PLATER eval and able to have PO feedings Expected Outcomes/Goals: prevent wt loss, improve nutrition status Plan discussed with: Other (CRYSTAL Wright) HOMERO PENA MD Dec 28, 2024 23:09
[2024-12-29] VITALS (16 sets, daily range): BP systolic 109–136; BP diastolic 59–73; PULSE 68–88; RESP 17–20; TEMP 97.6–98.7; O2SAT 96–98
[2024-12-29 06:46] LABS: Hematocrit 40.7 % (41.0-53.0); Hemoglobin 13.9 g/dL (13.5-17.5); Mean Corpuscular Hemoglobin 29.5 pg (28.0-32.0); Mean Corpuscular Volume 86.3 fL (80.0-100.0); Nucleated Red Blood Cells % 0.1 %
[2024-12-29 07:01] LABS: Albumin 3.4 g/dL (3.2-4.8); Alkaline Phosphatase 98 U/L (46-116); Anion Gap 9 (5-15); BUN/Creatinine Ratio 11.8 (10.0-20.0); Bilirubin, Total 0.4 mg/dL (0.2-1.0); Carbon Dioxide 28 mmol/L (20-31); Glucose 105 mg/dL (74-106); Potassium 3.9 mmol/L (3.5-5.1); Sodium 144 mmol/L (136-145)
[2024-12-29 07:02] LABS: Alanine Aminotransferase 89 U/L (7-40); Blood Urea Nitrogen 6 mg/dL (9-23); Calcium 8.6 mg/dL (8.7-10.4); Chloride 107 mmol/L (98-107); Total Protein 5.7 g/dL (5.7-8.2)
--- NOTE | 2024-12-29 11:45 | DVHPN2 ---
Subjective Patient encephalopathic Reviewed: Care Plan, H&P, Labs, Medications, Previous Orders, Radiology, Other (Consultations) Changes from previous H/P or p: No Changes General: Per HPI Objective Vitals Vital Signs Date Time Temp Pulse Resp B/P (MAP) Pulse Ox O2 Delivery O2 Flow Rate FiO2 12/29/24 08:30 97.8 81 18 124/59 (80) 96 97.8 12/29/24 06:05 T-piece 6.0 12/29/24 06:05 28 28 Intake/Output Intake and Output 12/29/24 07:00 Intake Total 2800 ml Output Total 2300 ml Balance 500 ml Intake Oral 0 ml IV Total 1150 ml Tube Feeding 1650 ml Output Urine Total 2300 ml General Appearance: No acute distress, Other (Nonverbal) HEENT: Other (Left scalp deformity from previous craniotomy/traumatic brain injury) Neck: Other (Tracheostomy in place) Lungs: Other (Few crackles bilateral lungs basis) Cardiovascular: Regular rate, Normal S1, Normal S2 Abdomen: Normal bowel sounds, Soft, Other (G-tube in place) Genitourinary: Other (El's in place) Musculoskeletal: Other (Contracted/Wasted muscles) Extremities: No edema Neuro: Other (Quadriplegic; nonverbal) Skin: Dry, Intact, Other (No ulcers and no deep tissue injuries found on December 25, 2024; refer to nursing documentation for more details) Psych/Mental Status: Other (Nonverbal) Medications Current Medications Medications Dose Ordered Sig/Ata Route Start Time Stop Time Status Last Admin Dose Admin Sodium Chloride 1,000 ml @ 120 mls/hr Q8H20M IV 12/11/24 09:56 12/29/24 08:17 120 MLS/HR Ondansetron HCl 4 mg Q4HP PRN IV 12/11/24 08:45 Nitroglycerin 0.4 mg Q5MINP PRN SL 12/11/24 08:45 Ascorbic Acid 500 mg BID GT 12/11/24 10:00 12/29/24 09:53 500 MG Baclofen 20 mg Q6HR GT 12/11/24 12:00 12/29/24 06:33 20 MG Multivitamins 1 tab DAILY GT 12/11/24 10:00 12/29/24 09:53 1 TAB Polyethylene Glycol 17 gm DAILY PO 12/11/24 10:00 12/29/24 09:52 17 GM Lacosamide 150 mg BID GT 12/11/24 10:00 12/29/24 09:57 150 MG Levetiracetam 1,000 mg BID GT 12/11/24 10:00 12/29/24 09:52 1,000 MG Acetaminophen 650 mg Q6HP PRN [place] 12/11/24 09:45 Acetaminophen 650 mg Q6HP PRN PO 12/11/24 10:00 Enteral Nutritional Formula 1,000 ml 60ML/HR GT 12/13/24 04:15 12/28/24 17:51 1,000 ML Enoxaparin Sodium 40 mg DAILY SC 12/23/24 10:00 12/29/24 09:47 40 MG Pantoprazole Sodium 40 mg DAILY IV 12/23/24 10:00 12/29/24 09:47 40 MG Vancomycin HCl 200 ml @ 200 mls/hr Q10H IV 12/23/24 16:00 UNV Ipratropium [place] 0.5 mg Q8HR [facility] 12/25/24 14:00 12/29/24 06:05 0.5 MG Levalbuterol HCl 0.625 mg Q8HR NEB 12/25/24 14:00 12/29/24 06:05 0.625 MG Ertapenem 1 gm/ Sodium Chloride 50 ml @ 100 mls/hr DAILY@2100 IV 12/26/24 21:00 12/28/24 20:18 100 MLS/HR Levofloxacin/ Dextrose 150 ml @ 100 mls/hr DAILY@1700 IV 12/26/24 18:15 12/28/24 17:39 100 MLS/HR Laboratory Results Laboratory Tests 12/29/24 05:36 Chemistry Test 12/29/24 05:36 Albumin 3.4 g/dL (3.2-4.8) Calcium Level 8.6 mg/dL (8.7-10.4) L Total Protein 5.7 g/dL (5.7-8.2) LFT Test 12/29/24 05:36 Alanine Aminotransferase (ALT) 89 U/L (7-40) H Alkaline Phosphatase 98 U/L (46-116) Aspartate Amino Transferase (AST) 66 U/L (13-40) H Total Bilirubin 0.4 mg/dL (0.2-1.0) Urinalysis Test 12/11/24 06:00 12/15/24 02:00 Urine Granular Casts Few /lpf (0) Urine Yeast (Budding) Occasional /hpf (None Urine Color Light-yellow (Yellow) Urine Clarity Clear (Clear) Urine pH 6.0 (5.0-9.0) Urine Specific [employer] 1.010 (1.001-1.035) Urine Protein Negative (Negative) Urine Ketones Negative (Negative) Urine Blood 2+ /uL (Negative) H Urine Nitrite Negative (Negative) Urine Bilirubin Negative (Negative) Urine Urobilinogen Normal mg/dL (Negative) Urine Leukocyte Esterase Negative /uL (Negative) Urine RBC 49 /hpf (0 - 3) Urine Microscopic WBC 2 /HPF (0-3) Urine Squamous Epithelial Cells None seen /hpf (<5) Urine Bacteria None seen /hpf (None Seen) Urine Mucus Few (None Seen) Urine Glucose Normal mg/dL (Normal) Microbiology Microbiology Date/Time Source Procedure Growth Status 12/20/24 01:31 Trachea Gram Stain - Final Resulted 12/20/24 01:31 Respiratory Culture - Preliminary Escherichia coli - ESBL Pseudomonas aeruginosa Citrobacter koseri Resulted 12/11/24 06:00 Voided Urine Urine Culture - Final Complete 12/11/24 02:57 Blood Blood Culture - Final NO GROWTH AFTER 5 DAYS OF INCUBATION. Complete Labs and/or images reviewed: Labs reviewed by me, Image(s) reviewed by me Assessment/Plan Assessment/Plan Impression: -sepsis with multiple MDRO to tracheal secretions -history of traumatic brain injury -acute on chronic respiratory failure -history of seizure disorder -endocarditis ruled out Plan: -IV antibiotic per Infectious Disease consultation. Currently on Invanz and Levaquin -continue G-tube feeding -antiepileptics -O2 supplementation via blow-by. Currently on 28% FiO2. Mild potter secretions noted with tracheal suctioning -pulmonary consultation: Recommendations reviewed -DC planning with ID recommendations appreciated Total time spent with patient discussing and formulating plan of care: 35 minutes. This medical document was created using an electronic medical record system with [employer] system. Although this document has been carefully reviewed, there may still be some phonetic and typographical errors. These areas are purely typographical due to imperfections of the software programs, and do not reflect any compromise in the patient's medical care. Plan discussed with: Patient, Other (RN) My Orders Orders - INGE STEWART NP Procedure Category Date Status Time Chest Xray 1 View XY 12/29/24 Logged 11:34 Date of Service: Dec 29, 2024 Billing Provider: INGE STEWART NP Common Visit Codes: [id number] INP/OBS CARE(HIGH) INGE STEWART NP Dec 29, 2024 11:45
--- NOTE | 2024-12-29 17:05 | DVH ---
CHEST RADIOGRAPH Indication: pna Technique: Single frontal view of the chest was obtained COMPARISON: XY CHEST PORTABLE on DOS: 12/20/24, CT CHST AB PEL WO CON-NO IV/ORAL on DOS: 12/17/24, XY C HEST PORTABLE on DOS: 12/15/24, XY CHEST XRAY 1 VIEW on DOS: 12/11/24, XY CHEST PORTABLE on DOS: 11/29/24 FINDINGS: Lines and Tubes: Right central venous catheter in satisfactory position. Lungs: Congestion. Pleura: No effusion. No pneumothorax. Cardiomediastinal contours: Unremarkable Bones: Unremarkable IMPRESSION: No significant interval change.
--- NOTE | 2024-12-29 23:41 | DVHPN2 ---
Progress Note - Dictate Date Seen: Dec 29, 2024 Medical Necessity Reason Pt with a Central, PICC or Fol: Yes The following are medically ne: Willis Catheter Reason for willis catheter: Strict I&O Subjective [facility] Patient seen and examined at bedside. Remains on supplemental oxygen via trach Overnight events reviewed. vital signs Vital Sign Date Time Temp Pulse Resp B/P (MAP) Pulse Ox O2 Delivery O2 Flow Rate FiO2 12/29/24 22:01 96 T-piece 6.0 12/29/24 22:01 28 28 12/29/24 22:01 88 20 12/29/24 21:00 97.6 136/73 (94) 97.6 Total Intake and Output 12/28/24 12/28/24 12/29/24 15:00 23:00 07:00 Intake Total 850 ml 1000 ml 950 ml Output Total 2300 ml Balance 850 ml -1300 ml 950 ml medications Current Medications Medications Dose Ordered Sig/Ata Route Start Time Stop Time Status Last Admin Dose Admin Sodium Chloride 1,000 ml @ 120 mls/hr Q8H20M IV 12/11/24 09:56 12/29/24 17:37 120 MLS/HR Ondansetron HCl 4 mg Q4HP PRN IV 12/11/24 08:45 Nitroglycerin 0.4 mg Q5MINP PRN SL 12/11/24 08:45 Ascorbic Acid 500 mg BID GT 12/11/24 10:00 12/29/24 21:58 500 MG Baclofen 20 mg Q6HR GT 12/11/24 12:00 12/29/24 17:37 20 MG Multivitamins 1 tab DAILY GT 12/11/24 10:00 12/29/24 09:53 1 TAB Polyethylene Glycol 17 gm DAILY PO 12/11/24 10:00 12/29/24 09:52 17 GM Lacosamide 150 mg BID GT 12/11/24 10:00 12/29/24 21:58 150 MG Levetiracetam 1,000 mg BID GT 12/11/24 10:00 12/29/24 21:58 1,000 MG Acetaminophen 650 mg Q6HP PRN [place] 12/11/24 09:45 Acetaminophen 650 mg Q6HP PRN PO 12/11/24 10:00 Enteral Nutritional Formula 1,000 ml 60ML/HR GT 12/13/24 04:15 12/29/24 14:40 1,000 ML Enoxaparin Sodium 40 mg DAILY SC 12/23/24 10:00 12/29/24 09:47 40 MG Pantoprazole Sodium 40 mg DAILY IV 12/23/24 10:00 12/29/24 09:47 40 MG Vancomycin HCl 200 ml @ 200 mls/hr Q10H IV 12/23/24 16:00 UNV Ipratropium [place] 0.5 mg Q8HR NEB 12/25/24 14:00 12/29/24 22:00 0.5 MG Levalbuterol HCl 0.625 mg Q8HR NEB 12/25/24 14:00 12/29/24 22:01 0.625 MG Ertapenem 1 gm/ Sodium Chloride 50 ml @ 100 mls/hr DAILY@2100 IV 12/26/24 21:00 12/29/24 20:32 100 MLS/HR Levofloxacin/ Dextrose 150 ml @ 100 mls/hr DAILY@1700 IV 12/26/24 18:15 12/29/24 17:37 100 MLS/HR objective Gen.: Patient lying in bed in no apparent distress. On supplemental oxygen via trach Head: Normocephalic, atraumatic. Eyes: EOMI/PERRLA. Ears: Normal hearing. Normal anatomy. Neck/trachea: Trach in place. Nose: Normal external anatomy. Mouth: Moist mucous membranes. Chest: Decreased air entry bilaterally. No wheezing or rhonchi. Cardiovascular: Positive S1, positive S2. Regular rate and rhythm. Abdomen: Positive bowel sounds in all 4 quadrants. Soft, non-tender, non- distended. : Deferred. Rectal: Deferred. Skin: Warm, dry. Intact. Extremities: 2+ radial pulses bilaterally. No lower extremity edema. Neuro: Awake, alert, oriented x3. Nonverbal at baseline. No gross motor or sensory deficits. Cranial nerves II through XII intact. Quadriplegia. laboratory and microbiology Laboratory Tests 12/29/24 05:36 Test 12/29/24 05:36 Range/Units Serum Glucose 105 74-106 mg/dL Assessment/Plan Impression: Chronic hypoxic respiratory failure S/p tracheostomy Pleural effusion, trace Compressive atelectasis GGO on imaging S/p ventriculoperitoneal shunt Ascites Overweight, BMI 28.5 Events: Remains on supplemental oxygen On 6 LPM humidified air via trach Afebrile. No overnight events. Improved secretions Continue trach care Pulmonary toileting Recommend q.2 hour turns. Continue bronchodilators/Mucomyst Chest physiotherapy Sputum cultures positive for E. coli Complete antibiotics per ID recommendations - on Levaquin ID recs appreciated. Head of bed elevation Aspiration precautions Tube feeds for nutritional support Continue Lovenox for DVT ppx Labs and imaging reviewed. Rest of plan as noted below. Plan: Supplemental oxygen On 6 liters via T-piece Titrate to keep O2 sats above 92%. Trach care per RT Pulmonary toileting Continue bronchodilators. Continue antibiotics Follow up cultures Monitor renal function. Monitor electrolytes. Supplement as necessary. Monitor ins and outs. Wound care. DVT prophylaxis - Lovenox. CT chest, abdomen and pelvis on 12/17/24 revealed trace bilateral pleural effusions, bibasilar atelectasis and diffuse bilateral ground-glass opacity. Cardiomegaly and trace pericardial effusion. Cholelithiasis. Nonobstructive right nephrolithiasis. Percutaneous gastrostomy. Ventriculoperitoneal shunt. Tracheostomy. Small volume pelvic ascites. Labs and imaging reviewed. Prognosis: Poor given patient's multiple co-morbidities. Rest of plan per hospitalist and other consultants. Thank you, Dr. Kothari, for allowing me to participate in this patient's care. Further recommendations will depend on the patient's clinical course. Please do not hesitate to contact me if you have any questions or concerns. This medical document was created using an electronic medical record system with [employer] dictation system. Although these documentations are being carefully reviewed, there may still be some phonetic and typographical changes. The errors are purely typographical, due to imperfection on the software program, and do not reflect any compromise in the patient's medical care. Dietary Evaluation Review Comments: 1. Recommend peptide based TF Pivot 1.5Cal @45ml/hr providing 101g protein 1620kcal supporting pt's protein needs @120% and energy needs @93%. 2. Reassess when pt passes GRAIN UNLOADER eval and able to have PO feedings Expected Outcomes/Goals: prevent wt loss, improve nutrition status Plan discussed with: Other (CRYSTAL Wright) HOMERO PENA MD Dec 29, 2024 23:41
[2024-12-30] VITALS (15 sets, daily range): BP systolic 111–132; BP diastolic 67–72; PULSE 65–88; RESP 16–20; TEMP 97.6–98.3; O2SAT 94–100
--- NOTE | 2024-12-30 11:43 | DVHPN2 ---
Subjective Patient encephalopathic Reviewed: Care Plan, H&P, Labs, Medications, Previous Orders, Radiology, Other (Consultations) Changes from previous H/P or p: No Changes General: Per HPI Objective Vitals Vital Signs Date Time Temp Pulse Resp B/P (MAP) Pulse Ox O2 Delivery O2 Flow Rate FiO2 12/30/24 08:00 86 20 96 Trach Collar 6 N/A T-piece 12/30/24 05:00 97.6 132/69 (90) 97.6 Intake/Output Intake and Output 12/30/24 07:00 Intake Total 2264 ml Output Total 3950 ml Balance -1686 ml Intake Oral 0 ml IV Total 1150 ml Tube Feeding 1114 ml Output Urine Total 3950 ml General Appearance: No acute distress, Other (Nonverbal) HEENT: Other (Left scalp deformity from previous craniotomy/traumatic brain injury) Neck: Other (Tracheostomy in place) Lungs: Other (Few crackles bilateral lungs basis) Cardiovascular: Regular rate, Normal S1, Normal S2 Abdomen: Normal bowel sounds, Soft, Other (G-tube in place) Genitourinary: Other (El's in place) Musculoskeletal: Other (Contracted/Wasted muscles) Extremities: No edema Neuro: Other (Quadriplegic; nonverbal) Skin: Dry, Intact, Other (No ulcers and no deep tissue injuries found on December 25, 2024; refer to nursing documentation for more details) Psych/Mental Status: Other (Nonverbal) Medications Current Medications Medications Dose Ordered Sig/Ata Route Start Time Stop Time Status Last Admin Dose Admin Sodium Chloride 1,000 ml @ 120 mls/hr Q8H20M IV 12/11/24 09:56 12/30/24 05:10 120 MLS/HR Ondansetron HCl 4 mg Q4HP PRN IV 12/11/24 08:45 Nitroglycerin 0.4 mg Q5MINP PRN SL 12/11/24 08:45 Ascorbic Acid 500 mg BID GT 12/11/24 10:00 12/30/24 10:12 500 MG Baclofen 20 mg Q6HR GT 12/11/24 12:00 12/30/24 05:11 20 MG Multivitamins 1 tab DAILY GT 12/11/24 10:00 12/30/24 10:13 1 TAB Polyethylene Glycol 17 gm DAILY PO 12/11/24 10:00 12/29/24 09:52 17 GM Lacosamide 150 mg BID GT 12/11/24 10:00 12/30/24 10:12 150 MG Levetiracetam 1,000 mg BID GT 12/11/24 10:00 12/30/24 10:13 1,000 MG Acetaminophen 650 mg Q6HP PRN [place] 12/11/24 09:45 Acetaminophen 650 mg Q6HP PRN PO 12/11/24 10:00 Enteral Nutritional Formula 1,000 ml 60ML/HR GT 12/13/24 04:15 12/29/24 14:40 1,000 ML Enoxaparin Sodium 40 mg DAILY SC 12/23/24 10:00 12/30/24 10:12 40 MG Pantoprazole Sodium 40 mg DAILY IV 12/23/24 10:00 12/30/24 10:12 40 MG Vancomycin HCl 200 ml @ 200 mls/hr Q10H IV 12/23/24 16:00 UNV Ipratropium [place] 0.5 mg Q8HR NEB 12/25/24 14:00 12/30/24 05:48 0.5 MG Levalbuterol HCl 0.625 mg Q8HR NEB 12/25/24 14:00 12/30/24 05:48 0.625 MG Ertapenem 1 gm/ Sodium Chloride 50 ml @ 100 mls/hr DAILY@2100 IV 12/26/24 21:00 12/29/24 20:32 100 MLS/HR Levofloxacin/ Dextrose 150 ml @ 100 mls/hr DAILY@1700 IV 12/26/24 18:15 12/29/24 17:37 100 MLS/HR Laboratory Results Laboratory Tests 12/29/24 05:36 Urinalysis Test 12/11/24 06:00 12/15/24 02:00 Urine Granular Casts Few /lpf (0) Urine Yeast (Budding) Occasional /hpf (None Urine Color Light-yellow (Yellow) Urine Clarity Clear (Clear) Urine pH 6.0 (5.0-9.0) Urine Specific [place] 1.010 (1.001-1.035) Urine Protein Negative (Negative) Urine Ketones Negative (Negative) Urine Blood 2+ /uL (Negative) H Urine Nitrite Negative (Negative) Urine Bilirubin Negative (Negative) Urine Urobilinogen Normal mg/dL (Negative) Urine Leukocyte Esterase Negative /uL (Negative) Urine RBC 49 /hpf (0 - 3) Urine Microscopic WBC 2 /HPF (0-3) Urine Squamous Epithelial Cells None seen /hpf (<5) Urine Bacteria None seen /hpf (None Seen) Urine Mucus Few (None Seen) Urine Glucose Normal mg/dL (Normal) Microbiology Microbiology Date/Time Source Procedure Growth Status 12/20/24 01:31 Trachea Gram Stain - Final Resulted 12/20/24 01:31 Respiratory Culture - Preliminary Escherichia coli - ESBL Pseudomonas aeruginosa Citrobacter koseri Resulted 12/11/24 06:00 Voided Urine Urine Culture - Final Complete 12/11/24 02:57 Blood Blood Culture - Final NO GROWTH AFTER 5 DAYS OF INCUBATION. Complete Labs and/or images reviewed: Labs reviewed by me, Image(s) reviewed by me Assessment/Plan Assessment/Plan Impression: -sepsis with multiple MDRO to tracheal secretions -history of traumatic brain injury -acute on chronic respiratory failure -history of seizure disorder -endocarditis ruled out Plan: Events: Discussed case with Infectious Disease doctor, Dr. Velasco. At this time he states that the time of discharge patient will no longer need antimicrobial coverage. Attempted to call Bernadette Molina, noted next of kin in chart. No answer. Social service consultation placed for discharge planning. -continue G-tube feeding -antiepileptics -O2 supplementation via blow-by. Currently on 28% FiO2. Mild potter secretions noted with tracheal suctioning -pulmonary consultation: Recommendations reviewed Total time spent with patient discussing and formulating plan of care: 35 minutes. This medical document was created using an electronic medical record system with [employer] dictation system. Although this document has been carefully reviewed, there may still be some phonetic and typographical errors. These areas are purely typographical due to imperfections of the software programs, and do not reflect any compromise in the patient's medical care. Plan discussed with: Patient, Other (RN) My Orders Orders - INGE STEWART NP Procedure Category Date Status Time * Dining Services Manager CONS 12/30/24 Verified Consult Date of Service: Dec 30, 2024 Billing Provider: INGE STEWART NP Common Visit Codes: [id number] INP/OBS CARE(HIGH) INGE STEWART NP Dec 30, 2024 11:43
--- NOTE | 2024-12-30 21:00 | DVHPN2 ---
Consult Progress Note Date Seen: Dec 29, 2024 Subjective Patient reports: Feels better Objective vital signs Vital Sign Date Time Temp Pulse Resp B/P (MAP) Pulse Ox O2 Delivery O2 Flow Rate FiO2 12/30/24 19:50 69 18 96 12/30/24 19:42 T-piece 6 28 Cool Aerosol 28 12/30/24 17:00 98.2 129/69 (89) 98.2 Total Intake and Output 12/29/24 12/29/24 12/30/24 15:00 23:00 07:00 Intake Total 1114 ml 200 ml 950 ml Output Total 1800 ml 950 ml 1200 ml Balance -686 ml -750 ml -250 ml medications Current Medications Medications Dose Ordered Sig/Ata Route Start Time Stop Time Status Last Admin Dose Admin Sodium Chloride 1,000 ml @ 120 mls/hr Q8H20M IV 12/11/24 09:56 12/30/24 05:10 120 MLS/HR Ondansetron HCl 4 mg Q4HP PRN IV 12/11/24 08:45 Nitroglycerin 0.4 mg Q5MINP PRN SL 12/11/24 08:45 Ascorbic Acid 500 mg BID GT 12/11/24 10:00 12/30/24 10:12 500 MG Baclofen 20 mg Q6HR GT 12/11/24 12:00 12/30/24 17:19 20 MG Multivitamins 1 tab DAILY GT 12/11/24 10:00 12/30/24 10:13 1 TAB Polyethylene Glycol 17 gm DAILY PO 12/11/24 10:00 12/29/24 09:52 17 GM Lacosamide 150 mg BID GT 12/11/24 10:00 12/30/24 10:12 150 MG Levetiracetam 1,000 mg BID GT 12/11/24 10:00 12/30/24 10:13 1,000 MG Acetaminophen 650 mg Q6HP PRN [place] 12/11/24 09:45 Acetaminophen 650 mg Q6HP PRN PO 12/11/24 10:00 Enteral Nutritional Formula 1,000 ml 60ML/HR GT 12/13/24 04:15 12/29/24 14:40 1,000 ML Enoxaparin Sodium 40 mg DAILY SC 12/23/24 10:00 12/30/24 10:12 40 MG Pantoprazole Sodium 40 mg DAILY IV 12/23/24 10:00 12/30/24 10:12 40 MG Vancomycin HCl 200 ml @ 200 mls/hr Q10H IV 12/23/24 16:00 UNV Ipratropium [place] 0.5 mg Q8HR [facility] 12/25/24 14:00 12/30/24 19:42 0.5 MG Levalbuterol HCl 0.625 mg Q8HR NEB 12/25/24 14:00 12/30/24 19:42 0.625 MG Ertapenem 1 gm/ Sodium Chloride 50 ml @ 100 mls/hr DAILY@2100 IV 12/26/24 21:00 12/30/24 20:29 100 MLS/HR Levofloxacin/ Dextrose 150 ml @ 100 mls/hr DAILY@1700 IV 12/26/24 18:15 12/30/24 17:19 100 MLS/HR Physical Exam: General: NAD Neck: Supple. No masses. HEENT: PERRL. Normal lids and conjunctiva. Moist mucous membranes. Oropharynx without lesions, exudates or excessive erythema. Normal appearance of the external aspects of the nose and ears. Heart: Regular rhythm, normal rate. No murmur. No lower extremity edema. Lungs: Normal respiratory effort. Clear to auscultation bilaterally. No wheezes. No crackles. Abdomen: Soft. Non-tender. Non-distended. No masses or abdominal hernia. Msk: No digital cyanosis. Normal strength and tone in all 4 limbs Skin: Warm and dry, no rashes. Blanching erythema over sacrum, no open wounds. Neuro: Alert. No facial droop or slurred speech. Extra-ocular movements intact. Sensation intact to soft touch in all 4 limbs. Psych: Appropriate mood. Full affect. Oriented to person, place, time, and situation. laboratory and microbiology Laboratory Tests 12/29/24 05:36 Test 12/29/24 05:36 Range/Units Serum Glucose 105 74-106 mg/dL Problem List/Assessment/Plan Problems(with codes): (1) Sepsis (2) Status post seizure (3) Aspiration into airway (4) Traumatic brain injury (5) Metabolic encephalopathy (6) Acute hypoxic respiratory failure Problem List/Assessment/Plan ASSESSMENT AND PLAN: ID Problem List: \-- Recurrent aspiration and aspiration pneumonia \-- Multidrug-resistant pseudomonal and Enterobacter infections \-- Traumatic brain injury, nonverbal, post-tracheostomy and PEG \-- Chronically bedbound with sacral ulcer \-- History of endocarditis (diagnosed 2013) \-- Seizure disorder Assessment Mr. Molina is a 49-year-old male with a significant past medical history of traumatic brain injury with nonverbal status, chronic tracheostomy, percutaneous gastrostomy tube, seizure disorder, history of endocarditis in 2033, and multiple prior admissions for sepsis and pneumonia. He is chronically bedbound. The patient presents with shortness of breath. On admission, he was febrile to 102F and was requiring 8L O2 via trach collar. Initial blood pressure was 132/73, pulse 115, respiratory rate 23, and lactic acid 1.6. He also has a history of recurrent aspiration and multidrug-resistant respiratory pathogens. During this admission, he was started empirically on vancomycin and Zosyn, though he has a documented Zosyn allergy; however, no reaction was observed during this hospitalization. Chest X-ray showed no acute disease but diminished lung volumes. CT chest, abdomen, and pelvis revealed trace bilateral pleural effusions, diffuse bilateral ground glass opacities, cardiomegaly with trace pericardial effusion, cholelithiasis, nonobstructive right nephrolithiasis, small pelvic ascites, and a ventriculoperitoneal shunt. Sputum culture growing gram-negative rods, likely resistant organism. He has been afebrile except for fevers on admission, remains oxygen-dependent but has weaned to 6L trach collar. No ongoing signs of sepsis or persistent pneumonia; WBC and clinical trajectory stable. Sacral ulcer is present, with blanching erythema but without open wound; managed with wound care and regular repositioning. 12/23: awaiting sputum culture results , Ct chest abdomen and pelvis was alrgely unremarkable except for diffuse oppacities in the lungs bilaterally 12/24: continue aspiration precautions . preliminary respiratory cultures showing gram negative rods . patient has history of carbapenem resistance of note 12/25: clinically doing well . growing ESBL e coli and possible carbapenem resistant pseudomonas and multidrug resistant all of which are sensitive to meropenem 12/26: largely suspect organism found are colonization of lungs and does not have true pneumonia, most likely has aspiration pneumonitis . decolonization may help with this , good aspiration precautions such as clear airway clearance , suctioning , upright positions will likely lead to fewer recurrences of fever and sluggish mentation 8:clinically responding to antibiotic therapy 12/29: chest xray shows no significant interval change , congestion in the lungs diffusely Plan: - continue ertapenum 1 gram daily and levofloxacin 01/02/25 - f/u on carbapenem resistance , may need to broaden out to cover these organisms \-- Monitor closely for new/worsening fever, rising WBC, increased sputum, or escalating oxygen requirements \-- If clinical deterioration or new signs of infection, consider Zerbaxa for 7 days given history of multidrug resistance \-- Maintain strict aspiration precautions, mindful of ongoing aspiration risk due to PEG and neurologic impairment \-- Continue sacral ulcer care and frequent repositioning to prevent pressure injury progression \-- Continue seizure precautions and routine monitoring \-- Echocardiogram and LEYDI negative for ongoing endocarditis \-- Monitor laboratory trends and reassess clinically Isolation Precautions: Standard Plan discussed with: Other Dietary Evaluation Review Comments: 1. Recommend peptide based TF Pivot 1.5Cal @45ml/hr providing 101g protein 1620kcal supporting pt's protein needs @120% and energy needs @93%. 2. Reassess when pt passes LEAD PROJECT ENGINEER eval and able to have PO feedings Expected Outcomes/Goals: prevent wt loss, improve nutrition status EDGARD JOHNSON MD Dec 30, 2024 21:00
--- NOTE | 2024-12-30 21:00 | DVHPN2 ---
Consult Progress Note Date Seen: Dec 28, 2024 Subjective Patient reports: Other (improving , on 5 liters nasal canula , sputum i still thick through trach collar ) Objective vital signs Vital Sign Date Time Temp Pulse Resp B/P (MAP) Pulse Ox O2 Delivery O2 Flow Rate FiO2 12/30/24 19:50 69 18 96 12/30/24 19:42 T-piece 6 28 Cool Aerosol 28 12/30/24 17:00 98.2 129/69 (89) 98.2 Total Intake and Output 12/29/24 12/29/24 12/30/24 15:00 23:00 07:00 Intake Total 1114 ml 200 ml 950 ml Output Total 1800 ml 950 ml 1200 ml Balance -686 ml -750 ml -250 ml medications Current Medications Medications Dose Ordered Sig/Ata Route Start Time Stop Time Status Last Admin Dose Admin Sodium Chloride 1,000 ml @ 120 mls/hr Q8H20M IV 12/11/24 09:56 12/30/24 05:10 120 MLS/HR Ondansetron HCl 4 mg Q4HP PRN IV 12/11/24 08:45 Nitroglycerin 0.4 mg Q5MINP PRN SL 12/11/24 08:45 Ascorbic Acid 500 mg BID GT 12/11/24 10:00 12/30/24 10:12 500 MG Baclofen 20 mg Q6HR GT 12/11/24 12:00 12/30/24 17:19 20 MG Multivitamins 1 tab DAILY GT 12/11/24 10:00 12/30/24 10:13 1 TAB Polyethylene Glycol 17 gm DAILY PO 12/11/24 10:00 12/29/24 09:52 17 GM Lacosamide 150 mg BID GT 12/11/24 10:00 12/30/24 10:12 150 MG Levetiracetam 1,000 mg BID GT 12/11/24 10:00 12/30/24 10:13 1,000 MG Acetaminophen [address] 12/11/24 09:45 Acetaminophen 650 mg Q6HP PRN PO 12/11/24 10:00 Enteral Nutritional Formula 1,000 ml 60ML/HR GT 12/13/24 04:15 12/29/24 14:40 1,000 ML Enoxaparin Sodium 40 mg DAILY SC 12/23/24 10:00 12/30/24 10:12 40 MG Pantoprazole Sodium 40 mg DAILY IV 12/23/24 10:00 12/30/24 10:12 40 MG Vancomycin HCl 200 ml @ 200 mls/hr Q10H IV 12/23/24 16:00 UNV Ipratropium [place] 0.5 mg Q8HR [facility] 12/25/24 14:00 12/30/24 19:42 0.5 MG Levalbuterol HCl 0.625 mg Q8HR [facility] 12/25/24 14:00 12/30/24 19:42 0.625 MG Ertapenem 1 gm/ Sodium Chloride 50 ml @ 100 mls/hr DAILY@2100 IV 12/26/24 21:00 12/30/24 20:29 100 MLS/HR Levofloxacin/ Dextrose 150 ml @ 100 mls/hr DAILY@1700 IV 12/26/24 18:15 12/30/24 17:19 100 MLS/HR Physical Exam: General: NAD Neck: Supple. No masses. HEENT: PERRL. Normal lids and conjunctiva. Moist mucous membranes. Oropharynx without lesions, exudates or excessive erythema. Normal appearance of the external aspects of the nose and ears. Heart: Regular rhythm, normal rate. No murmur. No lower extremity edema. Lungs: Normal respiratory effort. Clear to auscultation bilaterally. No wheezes. No crackles. Abdomen: Soft. Non-tender. Non-distended. No masses or abdominal hernia. Msk: No digital cyanosis. Normal strength and tone in all 4 limbs Skin: Warm and dry, no rashes. Blanching erythema over sacrum, no open wounds. Neuro: Alert. No facial droop or slurred speech. Extra-ocular movements intact. Sensation intact to soft touch in all 4 limbs. Psych: Appropriate mood. Full affect. Oriented to person, place, time, and situation. laboratory and microbiology Laboratory Tests 12/29/24 05:36 Test 12/29/24 05:36 Range/Units Serum Glucose 105 74-106 mg/dL Problem List/Assessment/Plan Problems(with codes): (1) Sepsis (2) Acute hypoxic respiratory failure (3) Status post seizure (4) Aspiration into airway (5) Traumatic brain injury (6) Metabolic encephalopathy Problem List/Assessment/Plan ASSESSMENT AND PLAN: ID Problem List: \-- Recurrent aspiration and aspiration pneumonia \-- Multidrug-resistant pseudomonal and Enterobacter infections \-- Traumatic brain injury, nonverbal, post-tracheostomy and PEG \-- Chronically bedbound with sacral ulcer \-- History of endocarditis (diagnosed 2013) \-- Seizure disorder Assessment Mr. Molina is a 49-year-old male with a significant past medical history of traumatic brain injury with nonverbal status, chronic tracheostomy, percutaneous gastrostomy tube, seizure disorder, history of endocarditis in 2033, and multiple prior admissions for sepsis and pneumonia. He is chronically bedbound. The patient presents with shortness of breath. On admission, he was febrile to 102F and was requiring 8L O2 via trach collar. Initial blood pressure was 132/73, pulse 115, respiratory rate 23, and lactic acid 1.6. He also has a history of recurrent aspiration and multidrug-resistant respiratory pathogens. During this admission, he was started empirically on vancomycin and Zosyn, though he has a documented Zosyn allergy; however, no reaction was observed during this hospitalization. Chest X-ray showed no acute disease but diminished lung volumes. CT chest, abdomen, and pelvis revealed trace bilateral pleural effusions, diffuse bilateral ground glass opacities, cardiomegaly with trace pericardial effusion, cholelithiasis, nonobstructive right nephrolithiasis, small pelvic ascites, and a ventriculoperitoneal shunt. Sputum culture growing gram-negative rods, likely resistant organism. He has been afebrile except for fevers on admission, remains oxygen-dependent but has weaned to 6L trach collar. No ongoing signs of sepsis or persistent pneumonia; WBC and clinical trajectory stable. Sacral ulcer is present, with blanching erythema but without open wound; managed with wound care and regular repositioning. 12/23: awaiting sputum culture results , Ct chest abdomen and pelvis was alrgely unremarkable except for diffuse oppacities in the lungs bilaterally 12/24: continue aspiration precautions . preliminary respiratory cultures showing gram negative rods . patient has history of carbapenem resistance of note 12/25: clinically doing well . growing ESBL e coli and possible carbapenem resistant pseudomonas and multidrug resistant all of which are sensitive to meropenem 12/26: largely suspect organism found are colonization of lungs and does not have true pneumonia, most likely has aspiration pneumonitis . decolonization may help with this , good aspiration precautions such as clear airway clearance , suctioning , upright positions will likely lead to fewer recurrences of fever and sluggish mentation 12/28:clinically responding to antibioitc therapy Plan: - continue ertapenum 1 gram daily and levofloxacin 01/02/25 - f/u on carbapenem resistance , may need to broaden out to cover these organisms \-- Monitor closely for new/worsening fever, rising WBC, increased sputum, or escalating oxygen requirements \-- If clinical deterioration or new signs of infection, consider Zerbaxa for 7 days given history of multidrug resistance \-- Maintain strict aspiration precautions, mindful of ongoing aspiration risk due to PEG and neurologic impairment \-- Continue sacral ulcer care and frequent repositioning to prevent pressure injury progression \-- Continue seizure precautions and routine monitoring \-- Echocardiogram and LEYDI negative for ongoing endocarditis \-- Monitor laboratory trends and reassess clinically Isolation Precautions: Standard Plan discussed with: Other Dietary Evaluation Review Comments: 1. Recommend peptide based TF Pivot 1.5Cal @45ml/hr providing 101g protein 1620kcal supporting pt's protein needs @120% and energy needs @93%. 2. Reassess when pt passes PROJECT DEVELOPMENT DIRECTOR eval and able to have PO feedings Expected Outcomes/Goals: prevent wt loss, improve nutrition status EDGARD JOHNSON MD Dec 30, 2024 21:00
--- NOTE | 2024-12-30 21:01 | DVHPN2 ---
Consult Progress Note Date Seen: Dec 30, 2024 Subjective Patient reports: Other (2 liters nasal canula , improved oxygen status with turning and repositioning . has clear thick and white sputum . coarse rails bilaterally ) Objective vital signs Vital Sign Date Time Temp Pulse Resp B/P (MAP) Pulse Ox O2 Delivery O2 Flow Rate FiO2 12/30/24 19:50 69 18 96 12/30/24 19:42 T-piece 6 28 Cool Aerosol 28 12/30/24 17:00 98.2 129/69 (89) 98.2 Total Intake and Output 12/29/24 12/29/24 12/30/24 15:00 23:00 07:00 Intake Total 1114 ml 200 ml 950 ml Output Total 1800 ml 950 ml 1200 ml Balance -686 ml -750 ml -250 ml medications Current Medications Medications Dose Ordered Sig/Ata Route Start Time Stop Time Status Last Admin Dose Admin Sodium Chloride 1,000 ml @ 120 mls/hr Q8H20M IV 12/11/24 09:56 12/30/24 05:10 120 MLS/HR Ondansetron HCl 4 mg Q4HP PRN IV 12/11/24 08:45 Nitroglycerin 0.4 mg Q5MINP PRN SL 12/11/24 08:45 Ascorbic Acid 500 mg BID GT 12/11/24 10:00 12/30/24 10:12 500 MG Baclofen 20 mg Q6HR GT 12/11/24 12:00 12/30/24 17:19 20 MG Multivitamins 1 tab DAILY GT 12/11/24 10:00 12/30/24 10:13 1 TAB Polyethylene Glycol 17 gm DAILY PO 12/11/24 10:00 12/29/24 09:52 17 GM Lacosamide 150 mg BID GT 12/11/24 10:00 12/30/24 10:12 150 MG Levetiracetam 1,000 mg BID GT 12/11/24 10:00 12/30/24 10:13 1,000 MG Acetaminophen 650 mg Q6HP PRN [place] 12/11/24 09:45 Acetaminophen 650 mg Q6HP PRN PO 12/11/24 10:00 Enteral Nutritional Formula 1,000 ml 60ML/HR GT 12/13/24 04:15 12/29/24 14:40 1,000 ML Enoxaparin Sodium 40 mg DAILY SC 12/23/24 10:00 12/30/24 10:12 40 MG Pantoprazole Sodium 40 mg DAILY IV 12/23/24 10:00 12/30/24 10:12 40 MG Vancomycin HCl 200 ml @ 200 mls/hr Q10H IV 12/23/24 16:00 UNV Ipratropium [place] 0.5 mg Q8HR NEB 12/25/24 14:00 12/30/24 19:42 0.5 MG Levalbuterol HCl 0.625 mg Q8HR NEB 12/25/24 14:00 12/30/24 19:42 0.625 MG Ertapenem 1 gm/ Sodium Chloride 50 ml @ 100 mls/hr DAILY@2100 IV 12/26/24 21:00 12/30/24 20:29 100 MLS/HR Levofloxacin/ Dextrose 150 ml @ 100 mls/hr DAILY@1700 IV 12/26/24 18:15 12/30/24 17:19 100 MLS/HR Physical Exam: General: NAD Neck: Supple. No masses. HEENT: PERRL. Normal lids and conjunctiva. Moist mucous membranes. Oropharynx without lesions, exudates or excessive erythema. Normal appearance of the external aspects of the nose and ears. Heart: Regular rhythm, normal rate. No murmur. No lower extremity edema. Lungs: Normal respiratory effort. Clear to auscultation bilaterally. No wheezes. No crackles. Abdomen: Soft. Non-tender. Non-distended. No masses or abdominal hernia. Msk: No digital cyanosis. Normal strength and tone in all 4 limbs Skin: Warm and dry, no rashes. Blanching erythema over sacrum, no open wounds. Neuro: Alert. No facial droop or slurred speech. Extra-ocular movements intact. Sensation intact to soft touch in all 4 limbs. Psych: Appropriate mood. Full affect. Oriented to person, place, time, and situation. laboratory and microbiology Laboratory Tests 12/29/24 05:36 Test 12/29/24 05:36 Range/Units Serum Glucose 105 74-106 mg/dL Problem List/Assessment/Plan Problems(with codes): (1) Sepsis (2) Acute hypoxic respiratory failure (3) Status post seizure (4) Aspiration into airway (5) Traumatic brain injury (6) Metabolic encephalopathy Problem List/Assessment/Plan ASSESSMENT AND PLAN: ID Problem List: \-- Recurrent aspiration and aspiration pneumonia \-- Multidrug-resistant pseudomonal and Enterobacter infections \-- Traumatic brain injury, nonverbal, post-tracheostomy and PEG \-- Chronically bedbound with sacral ulcer \-- History of endocarditis (diagnosed 2013) \-- Seizure disorder Assessment Mr. Molina is a 49-year-old male with a significant past medical history of traumatic brain injury with nonverbal status, chronic tracheostomy, percutaneous gastrostomy tube, seizure disorder, history of endocarditis in 2033, and multiple prior admissions for sepsis and pneumonia. He is chronically bedbound. The patient presents with shortness of breath. On admission, he was febrile to 102F and was requiring 8L O2 via trach collar. Initial blood pressure was 132/73, pulse 115, respiratory rate 23, and lactic acid 1.6. He also has a history of recurrent aspiration and multidrug-resistant respiratory pathogens. During this admission, he was started empirically on vancomycin and Zosyn, though he has a documented Zosyn allergy; however, no reaction was observed during this hospitalization. Chest X-ray showed no acute disease but diminished lung volumes. CT chest, abdomen, and pelvis revealed trace bilateral pleural effusions, diffuse bilateral ground glass opacities, cardiomegaly with trace pericardial effusion, cholelithiasis, nonobstructive right nephrolithiasis, small pelvic ascites, and a ventriculoperitoneal shunt. Sputum culture growing gram-negative rods, likely resistant organism. He has been afebrile except for fevers on admission, remains oxygen-dependent but has weaned to 6L trach collar. No ongoing signs of sepsis or persistent pneumonia; WBC and clinical trajectory stable. Sacral ulcer is present, with blanching erythema but without open wound; managed with wound care and regular repositioning. 12/23: awaiting sputum culture results , Ct chest abdomen and pelvis was alrgely unremarkable except for diffuse oppacities in the lungs bilaterally 12/24: continue aspiration precautions . preliminary respiratory cultures showing gram negative rods . patient has history of carbapenem resistance of note 12/25: clinically doing well . growing ESBL e coli and possible carbapenem resistant pseudomonas and multidrug resistant all of which are sensitive to meropenem 12/26: largely suspect organism found are colonization of lungs and does not have true pneumonia, most likely has aspiration pneumonitis . decolonization may help with this , good aspiration precautions such as clear airway clearance , suctioning , upright positions will likely lead to fewer recurrences of fever and sluggish mentation 12/28:clinically responding to antibiotic therapy 12/29: chest xray shows no significant interval change , congestion in the lungs diffusely 12/30: improving on oxygen Plan: - continue ertapenum 1 gram daily and levofloxacin 01/02/25 - f/u on carbapenem resistance , may need to broaden out to cover these organisms \-- Monitor closely for new/worsening fever, rising WBC, increased sputum, or escalating oxygen requirements \-- If clinical deterioration or new signs of infection, consider Zerbaxa for 7 days given history of multidrug resistance \-- Maintain strict aspiration precautions, mindful of ongoing aspiration risk due to PEG and neurologic impairment \-- Continue sacral ulcer care and frequent repositioning to prevent pressure injury progression \-- Continue seizure precautions and routine monitoring \-- Echocardiogram and LEYDI negative for ongoing endocarditis \-- Monitor laboratory trends and reassess clinically Isolation Precautions: Standard Plan discussed with: Other Dietary Evaluation Review Comments: 1. Recommend peptide based TF Pivot 1.5Cal @45ml/hr providing 101g protein 1620kcal supporting pt's protein needs @120% and energy needs @93%. 2. Reassess when pt passes SLUMBER ROOM ATTENDANT eval and able to have PO feedings Expected Outcomes/Goals: prevent wt loss, improve nutrition status EDGARD JOHNSON MD Dec 30, 2024 21:00
--- NOTE | 2024-12-30 23:08 | DVHPN2 ---
Progress Note - Dictate Date Seen: Dec 30, 2024 Medical Necessity Reason Pt with a Central, PICC or Fol: Yes The following are medically ne: Willis Catheter Reason for willis catheter: Strict I&O Subjective [facility] Patient seen and examined at bedside. Remains on supplemental oxygen via trach Overnight events reviewed. vital signs Vital Sign Date Time Temp Pulse Resp B/P (MAP) Pulse Ox O2 Delivery O2 Flow Rate FiO2 12/30/24 21:00 97.8 75 17 121/68 (85) 97 97.8 12/30/24 19:42 T-piece 6 28 Cool Aerosol 28 Total Intake and Output 12/29/24 12/29/24 12/30/24 15:00 23:00 07:00 Intake Total 1114 ml 200 ml 950 ml Output Total 1800 ml 950 ml 1200 ml Balance -686 ml -750 ml -250 ml medications Current Medications Medications Dose Ordered Sig/Ata Route Start Time Stop Time Status Last Admin Dose Admin Sodium Chloride 1,000 ml @ 120 mls/hr Q8H20M IV 12/11/24 09:56 12/30/24 05:10 120 MLS/HR Ondansetron HCl 4 mg Q4HP PRN IV 12/11/24 08:45 Nitroglycerin 0.4 mg Q5MINP PRN SL 12/11/24 08:45 Ascorbic Acid 500 mg BID GT 12/11/24 10:00 12/30/24 21:30 500 MG Baclofen 20 mg Q6HR GT 12/11/24 12:00 12/30/24 17:19 20 MG Multivitamins 1 tab DAILY GT 12/11/24 10:00 12/30/24 10:13 1 TAB Polyethylene Glycol 17 gm DAILY PO 12/11/24 10:00 12/29/24 09:52 17 GM Lacosamide 150 mg BID GT 12/11/24 10:00 12/30/24 21:30 150 MG Levetiracetam 1,000 mg BID GT 12/11/24 10:00 12/30/24 21:29 1,000 MG Acetaminophen 650 mg Q6HP PRN [place] 12/11/24 09:45 Acetaminophen 650 mg Q6HP PRN PO 12/11/24 10:00 Enteral Nutritional Formula 1,000 ml 60ML/HR GT 12/13/24 04:15 12/30/24 22:14 1,000 ML Enoxaparin Sodium 40 mg DAILY SC 12/23/24 10:00 12/30/24 10:12 40 MG Pantoprazole Sodium 40 mg DAILY IV 12/23/24 10:00 12/30/24 10:12 40 MG Vancomycin HCl 200 ml @ 200 mls/hr Q10H IV 12/23/24 16:00 UNV Ipratropium [place] 0.5 mg Q8HR NEB 12/25/24 14:00 12/30/24 19:42 0.5 MG Levalbuterol HCl 0.625 mg Q8HR NEB 12/25/24 14:00 12/30/24 19:42 0.625 MG Ertapenem 1 gm/ Sodium Chloride 50 ml @ 100 mls/hr DAILY@2100 IV 12/26/24 21:00 12/30/24 20:29 100 MLS/HR Levofloxacin/ Dextrose 150 ml @ 100 mls/hr DAILY@1700 IV 12/26/24 18:15 12/30/24 17:19 100 MLS/HR objective Gen.: Patient lying in bed in no apparent distress. On supplemental oxygen via trach Head: Normocephalic, atraumatic. Eyes: EOMI/PERRLA. Ears: Normal hearing. Normal anatomy. Neck/trachea: Trach in place. Nose: Normal external anatomy. Mouth: Moist mucous membranes. Chest: Decreased air entry bilaterally. No wheezing or rhonchi. Cardiovascular: Positive S1, positive S2. Regular rate and rhythm. Abdomen: Positive bowel sounds in all 4 quadrants. Soft, non-tender, non- distended. : Deferred. Rectal: Deferred. Skin: Warm, dry. Intact. Extremities: 2+ radial pulses bilaterally. No lower extremity edema. Neuro: Awake, alert, oriented x3. Nonverbal at baseline. No gross motor or sensory deficits. Cranial nerves II through XII intact. Quadriplegia. laboratory and microbiology Laboratory Tests 12/29/24 05:36 Test 12/29/24 05:36 Range/Units Serum Glucose 105 74-106 mg/dL Assessment/Plan Impression: Chronic hypoxic respiratory failure S/p tracheostomy Pleural effusion, trace Compressive atelectasis GGO on imaging S/p ventriculoperitoneal shunt Ascites Overweight, BMI 28.5 Events: Remains on supplemental oxygen On 6 LPM humidified air via trach Afebrile. No overnight events. Improved secretions Continue trach care Pulmonary toileting Recommend q.2 hour turns. Continue bronchodilators/Mucomyst Chest physiotherapy Sputum cultures positive for E. coli Complete antibiotics per ID recommendations - on Levaquin ID recs appreciated. Head of bed elevation Aspiration precautions Tube feeds for nutritional support Continue Lovenox for DVT ppx Patient is stable for discharge from the pulmonary standpoint. Disposition per hospitalist. Labs and imaging reviewed. Rest of plan as noted below. Plan: Supplemental oxygen On 6 liters via T-piece Titrate to keep O2 sats above 92%. Trach care per RT Pulmonary toileting Continue bronchodilators. Complete antibiotic course Follow up cultures Monitor renal function. Monitor electrolytes. Supplement as necessary. Monitor ins and outs. Wound care. DVT prophylaxis - Lovenox. CT chest, abdomen and pelvis on 12/17/24 revealed trace bilateral pleural effusions, bibasilar atelectasis and diffuse bilateral ground-glass opacity. Cardiomegaly and trace pericardial effusion. Cholelithiasis. Nonobstructive right nephrolithiasis. Percutaneous gastrostomy. Ventriculoperitoneal shunt. Tracheostomy. Small volume pelvic ascites. Labs and imaging reviewed. Prognosis: Poor given patient's multiple co-morbidities. Rest of plan per hospitalist and other consultants. Thank you, Dr. Kothari, for allowing me to participate in this patient's care. Further recommendations will depend on the patient's clinical course. Please do not hesitate to contact me if you have any questions or concerns. This medical document was created using an electronic medical record system with [employer] dictation system. Although these documentations are being carefully reviewed, there may still be some phonetic and typographical changes. The errors are purely typographical, due to imperfection on the software program, and do not reflect any compromise in the patient's medical care. Dietary Evaluation Review Comments: 1. Recommend peptide based TF Pivot 1.5Cal @45ml/hr providing 101g protein 1620kcal supporting pt's protein needs @120% and energy needs @93%. 2. Reassess when pt passes RN LACTATION eval and able to have PO feedings Expected Outcomes/Goals: prevent wt loss, improve nutrition status Plan discussed with: Patient, Other (RN Xi) HOMERO PENA MD Dec 30, 2024 23:08
[2024-12-31] VITALS (13 sets, daily range): BP systolic 105–139; BP diastolic 59–73; PULSE 63–88; RESP 16–20; TEMP 97.5–98.6; O2SAT 92–100
--- NOTE | 2024-12-31 11:02 | DVHDS2 ---
Discharge Summary Date of Admission Dec 11, 2024 at 08:39 Date of Discharge: Dec 31, 2024 Admitting Diagnosis Acute respiratory failure Labs/Diagnostic Data: Laboratory Results Test 12/29/24 05:36 12/24/24 21:06 12/15/24 06:25 12/15/24 02:00 White Blood Count 6.2 10^3/uL (4.4-10.8) Red Blood Count 4.72 10^6/uL (4.5-5.90) Hemoglobin 13.9 g/dL (13.5-17.5) Hematocrit 40.7 % (41.0-53.0) Mean Corpuscular Volume 86.3 fL (80.0-100.0) Mean Corpuscular Hemoglobin 29.5 pg (28.0-32.0) Mean Corpuscular Hemoglobin Concent 34.1 g/dL (32.0-36.0) Red Cell Distribution Width 15.2 % (11.8-14.3) Platelet Count 181 10^3/uL (140-450) Mean Platelet Volume 9.0 fL (6.9-10.8) Neutrophils (%) (Auto) 53.9 % (37.0-80.0) Lymphocytes (%) (Auto) 28.4 % (10.0-50.0) Monocytes (%) (Auto) 12.4 % (0.0-12.0) Eosinophils (%) (Auto) 4.3 % (0.0-7.0) Basophils (%) (Auto) 1.0 % (0.0-2.0) Neutrophils # (Auto) 3.3 10 ^3/uL (1.6-8.6) Lymphocytes # (Auto) 1.7 10 ^3/uL (0.4-5.4) Monocytes # (Auto) 0.8 10 ^3/uL (0-1.3) Eosinophils # (Auto) 0.3 10 ^3/uL (0-0.8) Basophils # (Auto) 0.1 10 ^3/uL (0-0.2) Nucleated Red Blood Cells 0.1 % Sodium Level 144 mmol/L (136-145) Potassium Level 3.9 mmol/L (3.5-5.1) Chloride Level 107 mmol/L (98-107) Carbon Dioxide Level 28 mmol/L (20-31) Anion Gap 9 (5-15) Blood Urea Nitrogen 6 mg/dL (9-23) Creatinine 0.51 mg/dL (0.700-1.30) Glomerular Filtration Rate Calc 124 mL/min (>90) BUN/Creatinine Ratio 11.8 (10.0-20.0) Serum Glucose 105 mg/dL (74-106) Calcium Level 8.6 mg/dL (8.7-10.4) Total Bilirubin 0.4 mg/dL (0.2-1.0) Aspartate Amino Transferase (AST) 66 U/L (13-40) Alanine Aminotransferase (ALT) 89 U/L (7-40) Alkaline Phosphatase 98 U/L (46-116) Total Protein 5.7 g/dL (5.7-8.2) Albumin 3.4 g/dL (3.2-4.8) Vancomycin Level Trough < 3.0 ug/mL (5-10) Prothrombin Time 10.3 sec (9.3-11.8) Prothrombin Time INR 0.97 (0.9-1.15) Activated Partial Thromboplast Time 29.1 SEC (24.5-34.5) Urine Color Light-yellow (Yellow) Urine Clarity Clear (Clear) Urine pH 6.0 (5.0-9.0) Urine Specific [place] 1.010 (1.001-1.035) Urine Protein Negative (Negative) Urine Ketones Negative (Negative) Urine Blood 2+ /uL (Negative) Urine Nitrite Negative (Negative) Urine Bilirubin Negative (Negative) Urine Urobilinogen Normal mg/dL (Negative) Urine Leukocyte Esterase Negative /uL (Negative) Urine RBC 49 /hpf (0 - 3) Urine Microscopic WBC 2 /HPF (0-3) Urine Squamous Epithelial Cells None seen /hpf (<5) Urine Bacteria None seen /hpf (None Seen) Urine Mucus Few (None Seen) Urine Glucose Normal mg/dL (Normal) Test 12/11/24 06:00 12/11/24 04:40 12/11/24 02:25 Urine Granular Casts Few /lpf (0) Urine Yeast (Budding) Occasional /hpf (None Lactic Acid Level 1.6 mmol/L (0.4-2.0) Blood Gas Specimen Type Arterial Blood Gas Sample Site Right radial Blood Gas Patient Temperature 37.0 Arterial Blood Date Drawn [id number] Arterial Blood pH 7.483 (7.350-7.450) Arterial Blood Partial Pressure CO2 31.5 mmHg (35.0-48.0) Arterial Blood Partial Pressure O2 64.8 mmHg (83.0-108.0) Arterial Blood HCO3 23.1 mmol/L (21.0-28.0) Arterial Blood Oxygen Saturation 93.9 % (94.0-98.0) Arterial Blood Base Excess 0.7 mmol/L (-2.0-3.0) Arterial Blood Oxyhemoglobin 91.9 % (94.0-98.0) Arterial Blood Carboxyhemoglobin 1.3 % (0.5-1.5) Arterial Blood Methemoglobin 0.8 % (0.0-1.5) José Miguel Test Modified Blood Gas Total Hemoglobin 17.10 g/dL (13.5-17.5) Blood Gas Liter Flow 8.00 Blood Gas Modality Cool aerosol FiO2 % 30.0 Other Laboratory Tests 12/29/24 05:36 Brief Hx & Hospital Course: History of Present Illness Allen Molina is a 49-year-old male with past medical history of seizures, TBI, nonverbal at baseline, chronic bed-bound, endocarditis diagnosed in 2013 per mom, and chronic trach who presents to the ED with shortness of breath. Mom states that the patient was here at the hospital on November 28 and was discharged as well as another readmission on December 09 and was discharged as well with pneumonia and sepsis. Patient's mom Amelia at the bedside. She is stating that the patient has been in and out of the hospital for the same problem. She states that she requested for the hospitalist to check and see if he had endocarditis the last visit and they did not check as she states. Patient's mom also stated that she wanted patient to get transferred to another facility but does not know where. Patient's mom also states that her daughter who is more aware of the patient's medical history is coming [place]. Patient's mom is stating that once he comes off the monitoring that he gets septic and she is aware of it. Course of hospitalization: Patient was treated with empiric IV antibiotics. Patient had LEYDI which was negative for endocarditis. Patient's sputum culture found to be positive for multiple MDRO nose, probable colonization given long-term tracheostomy. This was verified with Infectious Disease doctor. Patient is now on 2 L via blow-by oxygen. He has been afebrile without any leukocytosis for multiple weeks now. Long discussion made with the patient's mother who is agreeable to have the patient discharged back home with home health services. Patient will be provided home O2 with humidification. Patient will resume his home tube feedings, home medications, and follow up with his PCP in 1-2 weeks. Mother is agreeable with discharge plan. All questions answered. Physical examination General: Alert. Not oriented. History of TBI Eyes: EOMI. Anicteric. HENT: Moist mucous membranes. Lungs: Clear to auscultation bilaterally. No accessory muscle use. Cardiovascular: Regular rate and rhythm. No murmur. No JVD. Abdomen: Soft, non-tender and non-distended. No palpable masses. Peg placement Extremities: No edema. Non-tender. Skin: No rashes or lesions. Warm. Neurologic: Unable to assess Psychiatric: Unable to assess Total time spent with patient discussing and formulating plan of care: 35 minutes. This medical document was created using an electronic medical record system with [employer] dictation system. Although this document has been carefully reviewed, there may still be some phonetic and typographical errors. These areas are purely typographical due to imperfections of the software programs, and do not reflect any compromise in the patient's medical care. Consults/Reason for consult Pulmonology: Respiratory failure Infectious disease: MDRO Cardiology: Rule out endocarditis Condition at Discharge: Guarded Final Diagnosis/Problems List -sepsis with multiple MDRO to tracheal secretions -history of traumatic brain injury -acute on chronic respiratory failure -history of seizure disorder -endocarditis ruled out Discharge Disposition: Home with Health Services Discharge Instruct/Medications Diet: See Comment Diet comment: Continue previous tube feeding Activity: No Restrictions, As Tolerated Follow Up/Referral: PCP in 1-2 weeks Medications: Resume all home medications per medication reconciliation form Scheduled Amino Acids-Protein Hydrolysat (Pro-Stat), 30 ML OR DAILY, (Reported) Ascorbic Acid (Vitamin C Tablet), 1 TAB GT BID, (Reported) Baclofen (Baclofen), 20 MG GT Q6HR, (Reported) Chlorhexidine Gluconate (Mouth (Chlorhexidine Oral Rinse), 15 ML MT Q12HR, (Reported) Fluconazole (Fluconazole), 1 TAB PO DAILY Fluconazole (Fluconazole), 1 TAB PO DAILY Lacosamide (Lacosamide), 150 MG GT BID, (Reported) Levetiracetam (Keppra), 10 LIQ PO BID, (Reported) Loratadine (Claritin), 1 TAB PO DAILY, (Reported) Multiple Vitamin (Multivitamins), 1 TAB GT DAILY, (Reported) Polyethylene Glycol 3350 (Miralax), 17 GM PO 3XW, (Reported) Potassium Chloride (Potassium Chloride Cr), 20 MEQ GT DAILY, (Reported) Zinc Sulfate (Zinc Sulfate), 50 MG GT DAILY, (Reported) Scheduled PRN Acetylcysteine (Acetylcysteine), 1 ML IN Q4HP PRN for thick secretions, (Reported) Diphenhydramine Hcl (Benadryl Allergy), 25 MG PO Q8HPRN PRN for allergies, (Reported) Glycopyrrolate ([place]uv[place]a), 1 MG PO Q8HPRN PRN for increased secretions, (Reported) Ipratropium-Albuterol (Ipratropium [place]/Albut), 1 TRACE IN Q6HPRN PRN for respiratory failure, (Reported) Levalbuterol HCl (Levalbuterol), 1.25 MG IN Q4HP PRN for WHEEZING, (Reported) Lorazepam (Ativan Tablet), 0.5 MG GT Q6HPRN PRN for SHORTNESS OF BREATH, (Reported) 36 Discharge Statement: "Patient was advised to return to the ER or call 911 if any headaches, dizziness, shortness of breath, chest pain, abdominal pain, bleeding, fevers, or worsening of medical condition. Patient was counseled about treatment plan, medications, possible side effects, patientverbalized understanding. All questions were answered to the best of my ability. This discharge took greater then 30 minutes in planning, reviewing documentation, counseling the patient, and discussing with other team members." ASSESSMENT ASSESSMENT Assessment Transesophageal echocardiogram Date of Service: Dec 31, 2024 Billing Provider: INGE STEWART NP Common Visit Codes: 72707-OXG/OBS DISCH DAY >30min INGE STEWART NP Dec 31, 2024 11:02
--- NOTE | 2024-12-31 23:37 | DVHPN2 ---
Progress Note - Dictate Date Seen: Dec 31, 2024 Medical Necessity Reason Pt with a Central, PICC or Fol: Yes The following are medically ne: Willis Catheter Reason for willis catheter: Strict I&O Subjective [facility] Patient seen and examined at bedside. Remains on supplemental oxygen via trach Overnight events reviewed. vital signs Vital Sign Date Time Temp Pulse Resp B/P (MAP) Pulse Ox O2 Delivery O2 Flow Rate FiO2 12/31/24 22:03 73 18 100 12/31/24 21:55 Room Air 12/31/24 21:55 0 21 12/31/24 21:00 97.8 139/59 (85) 97.8 Total Intake and Output 12/30/24 12/30/24 12/31/24 15:00 23:00 07:00 Intake Total 1750 ml Output Total 1301 ml 1200 ml Balance 449 ml -1200 ml medications Current Medications Medications Dose Ordered Sig/Ata Route Start Time Stop Time Status Last Admin Dose Admin Sodium Chloride 1,000 ml @ 120 mls/hr Q8H20M IV 12/11/24 09:56 12/31/24 21:48 120 MLS/HR Ondansetron HCl 4 mg Q4HP PRN IV 12/11/24 08:45 Nitroglycerin 0.4 mg Q5MINP PRN SL 12/11/24 08:45 Ascorbic Acid 500 mg BID GT 12/11/24 10:00 12/31/24 21:35 500 MG Baclofen 20 mg Q6HR GT 12/11/24 12:00 12/31/24 20:10 20 MG Multivitamins 1 tab DAILY GT 12/11/24 10:00 12/31/24 12:48 1 TAB Polyethylene Glycol 17 gm DAILY PO 12/11/24 10:00 12/29/24 09:52 17 GM Lacosamide 150 mg BID GT 12/11/24 10:00 12/31/24 21:35 150 MG Levetiracetam 1,000 mg BID GT 12/11/24 10:00 12/31/24 21:35 1,000 MG Acetaminophen 650 mg Q6HP PRN AL 12/11/24 09:45 Acetaminophen 650 mg Q6HP PRN PO 12/11/24 10:00 Enteral Nutritional Formula 1,000 ml 60ML/HR GT 12/13/24 04:15 12/30/24 22:14 1,000 ML Enoxaparin Sodium 40 mg DAILY SC 12/23/24 10:00 12/31/24 12:49 40 MG Pantoprazole Sodium 40 mg DAILY IV 12/23/24 10:00 12/31/24 12:48 40 MG Vancomycin HCl 200 ml @ 200 mls/hr Q10H IV 12/23/24 16:00 UNV Ipratropium [place] 0.5 mg Q8HR [facility] 12/25/24 14:00 12/31/24 21:55 0.5 MG Levalbuterol HCl 0.625 mg Q8HR [facility] 12/25/24 14:00 12/31/24 21:55 0.625 MG Levofloxacin/ Dextrose 150 ml @ 100 mls/hr DAILY@1700 IV 12/26/24 18:15 12/31/24 19:40 100 MLS/HR Ertapenem 1 gm/ Sodium Chloride 50 ml @ 100 mls/hr DAILY@2100 IV 12/31/24 23:30 objective Gen.: Patient lying in bed in no apparent distress. On supplemental oxygen via trach Head: Normocephalic, atraumatic. Eyes: EOMI/PERRLA. Ears: Normal hearing. Normal anatomy. Neck/trachea: Trach in place. Nose: Normal external anatomy. Mouth: Moist mucous membranes. Chest: Decreased air entry bilaterally. No wheezing or rhonchi. Cardiovascular: Positive S1, positive S2. Regular rate and rhythm. Abdomen: Positive bowel sounds in all 4 quadrants. Soft, non-tender, non- distended. : Deferred. Rectal: Deferred. Skin: Warm, dry. Intact. Extremities: 2+ radial pulses bilaterally. No lower extremity edema. Neuro: Awake, alert, oriented x3. Nonverbal at baseline. No gross motor or sensory deficits. Cranial nerves II through XII intact. Quadriplegia. laboratory and microbiology Laboratory Tests 12/29/24 05:36 Test 12/29/24 05:36 Range/Units Serum Glucose 105 74-106 mg/dL Assessment/Plan Impression: Chronic hypoxic respiratory failure S/p tracheostomy Pleural effusion, trace Compressive atelectasis GGO on imaging S/p ventriculoperitoneal shunt Ascites Overweight, BMI 28.5 Events: Remains on supplemental oxygen On 6 LPM humidified air via trach Afebrile. No overnight events. Social issues - Social Work consult appreciated. Improved secretions Continue trach care Pulmonary toileting Recommend q.2 hour turns. Continue bronchodilators/Mucomyst Chest physiotherapy Sputum cultures positive for E. coli Complete antibiotics per ID recommendations - on Levaquin ID recs appreciated. Head of bed elevation Aspiration precautions Tube feeds for nutritional support Continue Lovenox for DVT ppx Patient is stable for discharge from the pulmonary standpoint. Disposition per hospitalist. Labs and imaging reviewed. Rest of plan as noted below. Plan: Supplemental oxygen On 6 liters via T-piece Titrate to keep O2 sats above 92%. Trach care per RT Pulmonary toileting Continue bronchodilators. Complete antibiotic course Follow up cultures Monitor renal function. Monitor electrolytes. Supplement as necessary. Monitor ins and outs. Wound care. DVT prophylaxis - Lovenox. CT chest, abdomen and pelvis on 12/17/24 revealed trace bilateral pleural effusions, bibasilar atelectasis and diffuse bilateral ground-glass opacity. Cardiomegaly and trace pericardial effusion. Cholelithiasis. Nonobstructive right nephrolithiasis. Percutaneous gastrostomy. Ventriculoperitoneal shunt. Tracheostomy. Small volume pelvic ascites. Labs and imaging reviewed. Prognosis: Poor given patient's multiple co-morbidities. Rest of plan per hospitalist and other consultants. Thank you, Dr. Kothari, for allowing me to participate in this patient's care. Further recommendations will depend on the patient's clinical course. Please do not hesitate to contact me if you have any questions or concerns. This medical document was created using an electronic medical record system with [employer] dictation system. Although these documentations are being carefully reviewed, there may still be some phonetic and typographical changes. The errors are purely typographical, due to imperfection on the software program, and do not reflect any compromise in the patient's medical care. Dietary Evaluation Review Comments: 1. Recommend peptide based TF Pivot 1.5Cal @45ml/hr providing 101g protein 1620kcal supporting pt's protein needs @120% and energy needs @93%. 2. Reassess when pt passes GEOGRAPHIC INFORMATION SYSTEMS MANAGER eval and able to have PO feedings Expected Outcomes/Goals: prevent wt loss, improve nutrition status Plan discussed with: Other (CRYSTAL Springer) HOMERO PENA MD Dec 31, 2024 23:37
[2024-12-31] MEDS: ERTAPENEM SOD INJ 1 GM in SODIUM CHL 0.9% 50 ML IV SCH (23:41)
[2025-01-01] VITALS (11 sets, daily range): BP systolic 116–136; BP diastolic 57–76; PULSE 65–108; RESP 18–20; TEMP 97–97.8; O2SAT 94–100
--- NOTE | 2025-01-01 08:46 | DVHPN2 ---
Subjective Patient encephalopathic Reviewed: Care Plan, H&P, Labs, Medications, Previous Orders, Radiology, Other (Consultations) Changes from previous H/P or p: No Changes General: Per HPI Objective Vitals Vital Signs Date Time Temp Pulse Resp B/P (MAP) Pulse Ox O2 Delivery O2 Flow Rate FiO2 01/01/25 05:41 74 18 100 01/01/25 05:34 Room Air 01/01/25 05:34 0 21 01/01/25 05:00 97.7 116/57 (76) 97.7 Intake/Output Intake and Output 01/01/25 07:00 Intake Total 1978 ml Output Total 2950 ml Balance -972 ml Intake Oral 0 ml IV Total 1978 ml Output Urine Total 2950 ml General Appearance: No acute distress, Other (Nonverbal) HEENT: Other (Left scalp deformity from previous craniotomy/traumatic brain injury) Neck: Other (Tracheostomy in place) Lungs: Other (Few crackles bilateral lungs basis) Cardiovascular: Regular rate, Normal S1, Normal S2 Abdomen: Normal bowel sounds, Soft, Other (G-tube in place) Genitourinary: Other (El's in place) Musculoskeletal: Other (Contracted/Wasted muscles) Extremities: No edema Neuro: Other (Quadriplegic; nonverbal) Skin: Dry, Intact, Other (No ulcers and no deep tissue injuries found on December 25, 2024; refer to nursing documentation for more details) Psych/Mental Status: Other (Nonverbal) Medications Current Medications Medications Dose Ordered Sig/Ata Route Start Time Stop Time Status Last Admin Dose Admin Sodium Chloride 1,000 ml @ 120 mls/hr Q8H20M IV 12/11/24 09:56 01/01/25 08:42 120 MLS/HR Ondansetron HCl 4 mg Q4HP PRN IV 12/11/24 08:45 Nitroglycerin 0.4 mg Q5MINP PRN SL 12/11/24 08:45 Ascorbic Acid 500 mg BID GT 12/11/24 10:00 12/31/24 21:35 500 MG Baclofen 20 mg Q6HR GT 12/11/24 12:00 01/01/25 05:30 20 MG Multivitamins 1 tab DAILY GT 12/11/24 10:00 12/31/24 12:48 1 TAB Polyethylene Glycol 17 gm DAILY PO 12/11/24 10:00 12/29/24 09:52 17 GM Lacosamide 150 mg BID GT 12/11/24 10:00 12/31/24 21:35 150 MG Levetiracetam 1,000 mg BID GT 12/11/24 10:00 12/31/24 21:35 1,000 MG Acetaminophen 650 mg Q6HP PRN [place] 12/11/24 09:45 Acetaminophen 650 mg Q6HP PRN PO 12/11/24 10:00 Enteral Nutritional Formula 1,000 ml 60ML/HR GT 12/13/24 04:15 12/30/24 22:14 1,000 ML Enoxaparin Sodium 40 mg DAILY SC 12/23/24 10:00 12/31/24 12:49 40 MG Pantoprazole Sodium 40 mg DAILY IV 12/23/24 10:00 12/31/24 12:48 40 MG Vancomycin HCl 200 ml @ 200 mls/hr Q10H IV 12/23/24 16:00 UNV Ipratropium [place] 0.5 mg Q8HR NEB 12/25/24 14:00 01/01/25 05:33 0.5 MG Levalbuterol HCl 0.625 mg Q8HR NEB 12/25/24 14:00 01/01/25 05:34 0.625 MG Levofloxacin/ Dextrose 150 ml @ 100 mls/hr DAILY@1700 IV 12/26/24 18:15 12/31/24 19:40 100 MLS/HR Ertapenem 1 gm/ Sodium Chloride 50 ml @ 100 mls/hr DAILY@2100 IV 12/31/24 23:30 12/31/24 23:41 100 MLS/HR Laboratory Results Laboratory Tests 12/29/24 05:36 Urinalysis Test 12/11/24 06:00 12/15/24 02:00 Urine Granular Casts Few /lpf (0) Urine Yeast (Budding) Occasional /hpf (None Urine Color Light-yellow (Yellow) Urine Clarity Clear (Clear) Urine pH 6.0 (5.0-9.0) Urine Specific [place] 1.010 (1.001-1.035) Urine Protein Negative (Negative) Urine Ketones Negative (Negative) Urine Blood 2+ /uL (Negative) H Urine Nitrite Negative (Negative) Urine Bilirubin Negative (Negative) Urine Urobilinogen Normal mg/dL (Negative) Urine Leukocyte Esterase Negative /uL (Negative) Urine RBC 49 /hpf (0 - 3) Urine Microscopic WBC 2 /HPF (0-3) Urine Squamous Epithelial Cells None seen /hpf (<5) Urine Bacteria None seen /hpf (None Seen) Urine Mucus Few (None Seen) Urine Glucose Normal mg/dL (Normal) Microbiology Microbiology Date/Time Source Procedure Growth Status 12/20/24 01:31 Trachea Gram Stain - Final Complete 12/20/24 01:31 Respiratory Culture - Final Escherichia coli - ESBL Pseudomonas aeruginosa Citrobacter koseri Complete 12/11/24 06:00 Voided Urine Urine Culture - Final Complete 12/11/24 02:57 Blood Blood Culture - Final NO GROWTH AFTER 5 DAYS OF INCUBATION. Complete Labs and/or images reviewed: Labs reviewed by me, Image(s) reviewed by me Assessment/Plan Assessment/Plan Impression: -sepsis with multiple MDRO to tracheal secretions -history of traumatic brain injury -acute on chronic respiratory failure -history of seizure disorder -endocarditis ruled out Plan: Events: Patient now on room air. Long discussion made with the patient's mother yesterday regarding discharge planning. Apparently discharged in not occur yesterday because transportation was set up. Continue current treatment plan until patient is discharged today. -continue G-tube feeding -antiepileptics -O2 supplementation via blow-by. Currently on 28% FiO2. Mild potter secretions noted with tracheal suctioning -pulmonary consultation: Recommendations reviewed Total time spent with patient discussing and formulating plan of care: 35 minutes. This medical document was created using an electronic medical record system with [employer] dictation system. Although this document has been carefully reviewed, there may still be some phonetic and typographical errors. These areas are purely typographical due to imperfections of the software programs, and do not reflect any compromise in the patient's medical care. Plan discussed with: Patient, Other (RN) My Orders Orders - INGE STEWART NP Procedure Category Date Status Time Ss Eval For Home CONS 12/31/24 Transmitted Oxygen * Organizational Development Manager CONS 12/31/24 Transmitted Consult Discharge DISCHARGE 12/31/24 Transmitted 10:56 Mrsa Screen [place] 01/01/25 In Process 03:31 Date of Service: Jan 01, 2025 Billing Provider: INGE STEWART NP Common Visit Codes: [id number] INP/OBS CARE(HIGH) INGE STEWART NP Jan 01, 2025 08:46
--- NOTE | 2025-01-01 22:53 | DVHPN2 ---
Progress Note - Dictate Date Seen: Jan 01, 2025 Medical Necessity Reason Pt with a Central, PICC or Fol: Yes The following are medically ne: Willis Catheter Reason for willis catheter: Strict I&O Subjective [facility] Patient seen and examined at bedside. Remains on supplemental oxygen via trach Overnight events reviewed. vital signs Vital Sign Date Time Temp Pulse Resp B/P (MAP) Pulse Ox O2 Delivery O2 Flow Rate FiO2 01/01/25 16:30 97.8 73 19 136/71 (92) 94 97.8 01/01/25 13:25 Room Air* 0 21 Total Intake and Output 12/31/24 12/31/24 01/01/25 15:00 23:00 07:00 Intake Total 1100 ml 878 ml Output Total 1100 ml 1850 ml Balance 0 ml -972 ml medications Current Medications Medications Dose Ordered Sig/Ata Route Start Time Stop Time Status Last Admin Dose Admin Vancomycin HCl 200 ml @ 200 mls/hr Q10H IV 12/23/24 16:00 UNV objective Gen.: Patient lying in bed in no apparent distress. On supplemental oxygen via trach Head: Normocephalic, atraumatic. Eyes: EOMI/PERRLA. Ears: Normal hearing. Normal anatomy. Neck/trachea: Trach in place. Nose: Normal external anatomy. Mouth: Moist mucous membranes. Chest: Decreased air entry bilaterally. No wheezing or rhonchi. Cardiovascular: Positive S1, positive S2. Regular rate and rhythm. Abdomen: Positive bowel sounds in all 4 quadrants. Soft, non-tender, non- distended. : Deferred. Rectal: Deferred. Skin: Warm, dry. Intact. Extremities: 2+ radial pulses bilaterally. No lower extremity edema. Neuro: Awake, alert, oriented x3. Nonverbal at baseline. No gross motor or sensory deficits. Cranial nerves II through XII intact. Quadriplegia. laboratory and microbiology Laboratory Tests 12/29/24 05:36 Test 12/29/24 05:36 Range/Units Serum Glucose 105 74-106 mg/dL Assessment/Plan Impression: Chronic hypoxic respiratory failure S/p tracheostomy Pleural effusion, trace Compressive atelectasis GGO on imaging S/p ventriculoperitoneal shunt Ascites Overweight, BMI 28.5 Events: Remains on supplemental oxygen On 6 LPM humidified air via trach Afebrile. No overnight events. Social issues - Social Work consult appreciated. Improved secretions Continue trach care Pulmonary toileting Recommend q.2 hour turns. Continue bronchodilators/Mucomyst Chest physiotherapy Sputum cultures positive for E. coli MRSA negative. Completed antibiotics per ID recommendations ID recs appreciated. Head of bed elevation Aspiration precautions Tube feeds for nutritional support Continue Lovenox for DVT ppx Patient is stable for discharge from the pulmonary standpoint. Disposition per hospitalist. Labs and imaging reviewed. Rest of plan as noted below. Plan: Supplemental oxygen On 6 liters via T-piece Titrate to keep O2 sats above 92%. Trach care per RT Pulmonary toileting Continue bronchodilators. Complete antibiotic course Follow up cultures Monitor renal function. Monitor electrolytes. Supplement as necessary. Monitor ins and outs. Wound care. DVT prophylaxis - Lovenox. CT chest, abdomen and pelvis on 12/17/24 revealed trace bilateral pleural effusions, bibasilar atelectasis and diffuse bilateral ground-glass opacity. Cardiomegaly and trace pericardial effusion. Cholelithiasis. Nonobstructive right nephrolithiasis. Percutaneous gastrostomy. Ventriculoperitoneal shunt. Tracheostomy. Small volume pelvic ascites. Labs and imaging reviewed. Prognosis: Poor given patient's multiple co-morbidities. Rest of plan per hospitalist and other consultants. Thank you, Dr. Kothari, for allowing me to participate in this patient's care. Further recommendations will depend on the patient's clinical course. Please do not hesitate to contact me if you have any questions or concerns. This medical document was created using an electronic medical record system with [employer] dictation system. Although these documentations are being carefully reviewed, there may still be some phonetic and typographical changes. The errors are purely typographical, due to imperfection on the software program, and do not reflect any compromise in the patient's medical care. Dietary Evaluation Review Comments: 1. Recommend peptide based TF Pivot 1.5Cal @45ml/hr providing 101g protein 1620kcal supporting pt's protein needs @120% and energy needs @93%. 2. Reassess when pt passes [employer] eval and able to have PO feedings Expected Outcomes/Goals: prevent wt loss, improve nutrition status Plan discussed with: Other (CRYSTAL Coelho) HOMERO PENA MD Jan 01, 2025 22:53
--- NOTE | 2025-01-02 22:29 | DVHPN2 ---
Consult Progress Note Date Seen: Jan 01, 2025 Subjective Patient reports: Other (continuing on room ait and tolerating antibiotic therapy and occasionally having thick white sputum but cough has improved well ins everity ) Objective vital signs Vital Sign Date Time Temp Pulse Resp B/P (MAP) Pulse Ox O2 Delivery O2 Flow Rate FiO2 01/01/25 16:30 97.8 73 19 136/71 (92) 94 97.8 01/01/25 13:25 Room Air* 0 21 Total Intake and Output 01/01/25 01/01/25 01/02/25 15:00 23:00 07:00 Intake Total 0 ml Output Total 2600 ml Balance -2600 ml medications Current Medications Medications Dose Ordered Sig/Ata Route Start Time Stop Time Status Last Admin Dose Admin Vancomycin HCl 200 ml @ 200 mls/hr Q10H IV 12/23/24 16:00 UNV Physical Exam: General: NAD Neck: Supple. No masses. HEENT: PERRL. Normal lids and conjunctiva. Moist mucous membranes. Oropharynx without lesions, exudates or excessive erythema. Normal appearance of the external aspects of the nose and ears. Heart: Regular rhythm, normal rate. No murmur. No lower extremity edema. Lungs: Normal respiratory effort. Clear to auscultation bilaterally. No wheezes. No crackles. Abdomen: Soft. Non-tender. Non-distended. No masses or abdominal hernia. Msk: No digital cyanosis. Normal strength and tone in all 4 limbs Skin: Warm and dry, no rashes. Blanching erythema over sacrum, no open wounds. Neuro: Alert. No facial droop or slurred speech. Extra-ocular movements intact. Sensation intact to soft touch in all 4 limbs. Psych: Appropriate mood. Full affect. Oriented to person, place, time, and situation. laboratory and microbiology Laboratory Tests 12/29/24 05:36 Test 12/29/24 05:36 Range/Units Serum Glucose 105 74-106 mg/dL Problem List/Assessment/Plan Problems(with codes): (1) Sepsis (2) Generalized weakness (3) Acute hypoxic respiratory failure (4) Elevated liver enzymes (5) Sepsis, unspecified organism (6) Pneumonia, unspecified organism Problem List/Assessment/Plan ASSESSMENT AND PLAN: ID Problem List: \-- Recurrent aspiration and aspiration pneumonia \-- Multidrug-resistant pseudomonal and Enterobacter infections \-- Traumatic brain injury, nonverbal, post-tracheostomy and PEG \-- Chronically bedbound with sacral ulcer \-- History of endocarditis (diagnosed 2013) \-- Seizure disorder Assessment Mr. Molina is a 49-year-old male with a significant past medical history of traumatic brain injury with nonverbal status, chronic tracheostomy, percutaneous gastrostomy tube, seizure disorder, history of endocarditis in 2033, and multiple prior admissions for sepsis and pneumonia. He is chronically bedbound. The patient presents with shortness of breath. On admission, he was febrile to 102F and was requiring 8L O2 via trach collar. Initial blood pressure was 132/73, pulse 115, respiratory rate 23, and lactic acid 1.6. He also has a history of recurrent aspiration and multidrug-resistant respiratory pathogens. During this admission, he was started empirically on vancomycin and Zosyn, though he has a documented Zosyn allergy; however, no reaction was observed during this hospitalization. Chest X-ray showed no acute disease but diminished lung volumes. CT chest, abdomen, and pelvis revealed trace bilateral pleural effusions, diffuse bilateral ground glass opacities, cardiomegaly with trace pericardial effusion, cholelithiasis, nonobstructive right nephrolithiasis, small pelvic ascites, and a ventriculoperitoneal shunt. Sputum culture growing gram-negative rods, likely resistant organism. He has been afebrile except for fevers on admission, remains oxygen-dependent but has weaned to 6L trach collar. No ongoing signs of sepsis or persistent pneumonia; WBC and clinical trajectory stable. Sacral ulcer is present, with blanching erythema but without open wound; managed with wound care and regular repositioning. 12/23: awaiting sputum culture results , Ct chest abdomen and pelvis was alrgely unremarkable except for diffuse oppacities in the lungs bilaterally 12/24: continue aspiration precautions . preliminary respiratory cultures showing gram negative rods . patient has history of carbapenem resistance of note 12/25: clinically doing well . growing ESBL e coli and possible carbapenem resistant pseudomonas and multidrug resistant all of which are sensitive to meropenem 12/26: largely suspect organism found are colonization of lungs and does not have true pneumonia, most likely has aspiration pneumonitis . decolonization may help with this , good aspiration precautions such as clear airway clearance , suctioning , upright positions will likely lead to fewer recurrences of fever and sluggish mentation 8:clinically responding to antibiotic therapy 12/29: chest xray shows no significant interval change , congestion in the lungs diffusely 12/30: improving on oxygen 12/31: appears to be adequately responding to antibiotics 01/01: ekg shows qtc of 445 Plan: - continue ertapenum 1 gram daily and levofloxacin 01/02/25 - f/u on carbapenem resistance , may need to broaden out to cover these organisms \-- Monitor closely for new/worsening fever, rising WBC, increased sputum, or escalating oxygen requirements \-- If clinical deterioration or new signs of infection, consider Zerbaxa for 7 days given history of multidrug resistance \-- Maintain strict aspiration precautions, mindful of ongoing aspiration risk due to PEG and neurologic impairment \-- Continue sacral ulcer care and frequent repositioning to prevent pressure injury progression \-- Continue seizure precautions and routine monitoring \-- Echocardiogram and LEYDI negative for ongoing endocarditis \-- Monitor laboratory trends and reassess clinically Isolation Precautions: Standard Plan discussed with: Other Dietary Evaluation Review Comments: 1. Recommend peptide based TF Pivot 1.5Cal @45ml/hr providing 101g protein 1620kcal supporting pt's protein needs @120% and energy needs @93%. 2. Reassess when pt passes TEXTILE TECHNOLOGIST eval and able to have PO feedings Expected Outcomes/Goals: prevent wt loss, improve nutrition status EDGARD JOHNSON MD Jan 02, 2025 22:29
--- NOTE | 2025-01-02 22:29 | DVHPN2 ---
Consult Progress Note Date Seen: Dec 31, 2024 Subjective Patient reports: Other (on room air and mentating at baseline . crackles in lungs bilaterally ) Objective vital signs Vital Sign Date Time Temp Pulse Resp B/P (MAP) Pulse Ox O2 Delivery O2 Flow Rate FiO2 01/01/25 16:30 97.8 73 19 136/71 (92) 94 97.8 01/01/25 13:25 Room Air* 0 21 Total Intake and Output 01/01/25 01/01/25 01/02/25 15:00 23:00 07:00 Intake Total 0 ml Output Total 2600 ml Balance -2600 ml medications Current Medications Medications Dose Ordered Sig/Ata Route Start Time Stop Time Status Last Admin Dose Admin Vancomycin HCl 200 ml @ 200 mls/hr Q10H IV 12/23/24 16:00 UNV Physical Exam: General: NAD Neck: Supple. No masses. HEENT: PERRL. Normal lids and conjunctiva. Moist mucous membranes. Oropharynx without lesions, exudates or excessive erythema. Normal appearance of the external aspects of the nose and ears. Heart: Regular rhythm, normal rate. No murmur. No lower extremity edema. Lungs: Normal respiratory effort. Clear to auscultation bilaterally. No wheezes. No crackles. Abdomen: Soft. Non-tender. Non-distended. No masses or abdominal hernia. Msk: No digital cyanosis. Normal strength and tone in all 4 limbs Skin: Warm and dry, no rashes. Blanching erythema over sacrum, no open wounds. Neuro: Alert. No facial droop or slurred speech. Extra-ocular movements intact. Sensation intact to soft touch in all 4 limbs. Psych: Appropriate mood. Full affect. Oriented to person, place, time, and situation. laboratory and microbiology Laboratory Tests 12/29/24 05:36 Test 12/29/24 05:36 Range/Units Serum Glucose 105 74-106 mg/dL Problem List/Assessment/Plan Problems(with codes): (1) Elevated liver enzymes (2) Acute hypoxic respiratory failure (3) Sepsis, unspecified organism (4) Pneumonia, unspecified organism (5) Generalized weakness (6) Sepsis Problem List/Assessment/Plan ASSESSMENT AND PLAN: ID Problem List: \-- Recurrent aspiration and aspiration pneumonia \-- Multidrug-resistant pseudomonal and Enterobacter infections \-- Traumatic brain injury, nonverbal, post-tracheostomy and PEG \-- Chronically bedbound with sacral ulcer \-- History of endocarditis (diagnosed 2013) \-- Seizure disorder Assessment Mr. Molina is a 49-year-old male with a significant past medical history of traumatic brain injury with nonverbal status, chronic tracheostomy, percutaneous gastrostomy tube, seizure disorder, history of endocarditis in 2033, and multiple prior admissions for sepsis and pneumonia. He is chronically bedbound. The patient presents with shortness of breath. On admission, he was febrile to 102F and was requiring 8L O2 via trach collar. Initial blood pressure was 132/73, pulse 115, respiratory rate 23, and lactic acid 1.6. He also has a history of recurrent aspiration and multidrug-resistant respiratory pathogens. During this admission, he was started empirically on vancomycin and Zosyn, though he has a documented Zosyn allergy; however, no reaction was observed during this hospitalization. Chest X-ray showed no acute disease but diminished lung volumes. CT chest, abdomen, and pelvis revealed trace bilateral pleural effusions, diffuse bilateral ground glass opacities, cardiomegaly with trace pericardial effusion, cholelithiasis, nonobstructive right nephrolithiasis, small pelvic ascites, and a ventriculoperitoneal shunt. Sputum culture growing gram-negative rods, likely resistant organism. He has been afebrile except for fevers on admission, remains oxygen-dependent but has weaned to 6L trach collar. No ongoing signs of sepsis or persistent pneumonia; WBC and clinical trajectory stable. Sacral ulcer is present, with blanching erythema but without open wound; managed with wound care and regular repositioning. 12/23: awaiting sputum culture results , Ct chest abdomen and pelvis was alrgely unremarkable except for diffuse oppacities in the lungs bilaterally 12/24: continue aspiration precautions . preliminary respiratory cultures showing gram negative rods . patient has history of carbapenem resistance of note 12/25: clinically doing well . growing ESBL e coli and possible carbapenem resistant pseudomonas and multidrug resistant all of which are sensitive to meropenem 12/26: largely suspect organism found are colonization of lungs and does not have true pneumonia, most likely has aspiration pneumonitis . decolonization may help with this , good aspiration precautions such as clear airway clearance , suctioning , upright positions will likely lead to fewer recurrences of fever and sluggish mentation 8:clinically responding to antibiotic therapy 12/29: chest xray shows no significant interval change , congestion in the lungs diffusely 12/30: improving on oxygen 12/31: appears to be adequately responding to antibiotics Plan: - continue ertapenum 1 gram daily and levofloxacin 01/02/25 - f/u on carbapenem resistance , may need to broaden out to cover these organisms \-- Monitor closely for new/worsening fever, rising WBC, increased sputum, or escalating oxygen requirements \-- If clinical deterioration or new signs of infection, consider Zerbaxa for 7 days given history of multidrug resistance \-- Maintain strict aspiration precautions, mindful of ongoing aspiration risk due to PEG and neurologic impairment \-- Continue sacral ulcer care and frequent repositioning to prevent pressure injury progression \-- Continue seizure precautions and routine monitoring \-- Echocardiogram and LEYDI negative for ongoing endocarditis \-- Monitor laboratory trends and reassess clinically Isolation Precautions: Standard Plan discussed with: Other Dietary Evaluation Review Comments: 1. Recommend peptide based TF Pivot 1.5Cal @45ml/hr providing 101g protein 1620kcal supporting pt's protein needs @120% and energy needs @93%. 2. Reassess when pt passes [employer] A[employer]LY[employer] CHIEF SCIENTIST eval and able to have PO feedings Expected Outcomes/Goals: prevent wt loss, improve nutrition status EDGARD JOHNSON MD Jan 02, 2025 22:28
== END 2025-01-01 17:10 | disposition home health service (06) | DRG 871 ==
LOC: EDBD 01:51 → ER 01:51 → OVERFLOW 08:39 → TELE-CENTR 18:54 → OVERFLOW 12-17 21:10 → TELE-CENTR 12-17 21:11
PROVIDERS: ADMIT Nurse Practitioner Acute Care; ATTEND Nurse Practitioner Acute Care
PROC: B24BZZ4 Ultrasonography of Heart with Aorta, Transesophageal (ICD-10-PCS; principal; 2024-12-15 12:40)
DX: A41.52 Sepsis due to Pseudomonas (principal); G82.50 Quadriplegia, unspecified; G93.41 Metabolic encephalopathy; J96.21 Acute and chronic respiratory failure with hypoxia; J15.5 Pneumonia due to Escherichia coli; J69.0 Pneumonitis due to inhalation of food and vomit; E87.20 Acidosis, unspecified; R18.8 Other ascites; I48.92 Unspecified atrial flutter; J98.11 Atelectasis; I50.32 Chronic diastolic (congestive) heart failure; Z16.24 Resistance to multiple antibiotics; Z16.12 Extended spectrum beta lactamase (ESBL) resistance; Z93.0 Tracheostomy status; I11.0 Hypertensive heart disease with heart failure; G40.909 Epilepsy, unspecified, not intractable, without status epilepticus; E66.3 Overweight; Z53.9 Procedure and treatment not carried out, unspecified reason; Z74.01 Bed confinement status; Z93.1 Gastrostomy status; Z86.79 Personal history of other diseases of the circulatory system; Z68.28 Body mass index [BMI] 28.0-28.9, adult; Z99.81 Dependence on supplemental oxygen; Z98.2 Presence of cerebrospinal fluid drainage device; Z87.820 Personal history of traumatic brain injury
CPT/HCPCS: 36415; 36600; 71045; 71250; 74176; 80048; 80053; 80202; 81001; 82805; 83605; 85025; 85610; 85730; 86850; 86900; 86901; 87040; 87070; 87077; 87081; 87086; 87186; 87205; 93005; 93312; 94640; 94667; 94668; 96361; 96365; 99152; G0378; J1335; J1956; J2185; J2250; J2405; J2470; J2543; J2704

== ENCOUNTER 2025-01-02 21:15 | Inpatient (IN) | payer MEDICARE, MEDICAID ==
[~2025-01-02] VITALS: Ht 177.8 cm; Wt 83.0 kg
[2025-01-02] MEDS: ACETAMINOPHEN 650 mg PER 20.3 mL UD GT ONE ×2 (21:38→22:42)
[2025-01-02 22:00] VITALS: BP 141/80; PULSE 132; RESP 30; TEMP 102.4; O2SAT 99
[2025-01-02] MEDS: LACTATED RINGER'S 2,200 ML IV ONE (22:00)
[2025-01-02] MEDS: VANCOMYCIN 1GM/200ML PM 200 ML IV ONE (22:23)
[2025-01-02] MEDS: VANCOMYCIN 1GM/250ML KIT 250 ML IV ONE (22:30)
[2025-01-02 22:37] LABS: Hematocrit 46.0 % (41.0-53.0); Hemoglobin 15.3 g/dL (13.5-17.5); Mean Corpuscular Hemoglobin 28.8 pg (28.0-32.0); Mean Corpuscular Volume 86.6 fL (80.0-100.0)
--- NOTE | 2025-01-02 22:48 | ED.PDOC ---
History of Present Illness HPI Comments 49-year-old male with a history of seizures, TBI, nonverbal status, bed-bound, endocarditis in 2014, trach and PEG and recent admission for MDRO sepsis, discharged yesterday from here, brought in by EMS after mother called 911 for total body shaking and purple-appearing nail beds. Patient's mother notes she noticed these symptoms around 2039. At that time, patient's oxygen saturation was 93-94% which is his baseline. His heart rate was 150. Patient is not currently on any antibiotics. At triage, he was noted to be febrile at 102.4. Chief Complaint: Shortness of Breath Time Seen by MD: 22:53 Reviewed Notes: [employer] Notes Allergies: Coded Allergies: Piperacillin (Verified Adverse Reaction, Intermediate, URTICARIA, 12/11/24) Tazobactam (Verified Adverse Reaction, Intermediate, URTICARIA, 12/11/24) Home Meds Active Scripts Fluconazole (Fluconazole) 200 Mg Tab, 1 TAB PO DAILY for 3 Days, #3 TAB Prov:FLAKO WOODSON RESIDENT 12/09/24 Fluconazole (Fluconazole) 200 Mg Tab, 1 TAB PO DAILY for 3 Days, #3 TAB Prov:FLAKO WOODSON RESIDENT 12/09/24 Reported Medications Levetiracetam (Keppra) 1,000 Mg Tab, 10 LIQ PO BID, #60 TAB 5 Refills 11/14/24 Amino Acids-Protein Hydrolysat (PRO-STAT) Liq, 30 ML OR DAILY, LIQ 11/14/24 Zinc Sulfate (Zinc Sulfate) 220 Mg Cap, 50 MG GT DAILY for 30 Days, MG 11/14/24 Potassium Chloride (POTASSIUM CHLORIDE CR) 10 Meq Tb, 20 MEQ GT DAILY, TAB 25 Multiple Vitamin (Multivitamins) Tab, 1 TAB GT DAILY, #30 TAB 2 Refills 11/14/24 Lorazepam (ATIVAN TABLET) 0.5 Mg Tb, 0.5 MG GT Q6HPRN PRN for SHORTNESS OF BREATH, TAB 25 Levalbuterol HCl (Levalbuterol) 1.25 Mg/0.5 Ml Neb, 1.25 MG IN Q4HP PRN for WHEEZING, INH 11/14/24 Lacosamide (Lacosamide) 150 Mg Tab, 150 MG GT BID, TAB 6/20/25 Loratadine (Claritin) 10 Mg Tab, 1 TAB PO DAILY for ALLERGIES, #30 TAB 5 Refills 11/14/24 Ipratropium-Albuterol (Ipratropium Thayne/Albut) 1 Trace Trace, 1 TRACE IN Q6HPRN PRN for respiratory failure, ML 11/14/24 Glycopyrrolate (CUVPOSA) 1 Mg/5 Ml Trace, 1 MG PO Q8HPRN PRN for increased secretions, ML 11/14/24 Polyethylene Glycol 3350 (Miralax) 17 Gm Pow, 17 GM PO 3XW, POW 11/14/24 Chlorhexidine Gluconate (Mouth (CHLORHEXIDINE ORAL RINSE) 473 Ml So, 15 ML MT Q12HR, ML 11/14/24 Acetylcysteine (Acetylcysteine) 20 % Trace, 1 ML IN Q4HP PRN for thick secretions, ML 11/14/24 Diphenhydramine Hcl (Benadryl Allergy) 25 Mg Cap, 25 MG PO Q8HPRN PRN for allergies, CAP 11/14/24 Ascorbic Acid (VITAMIN C TABLET) 500 Mg Tb, 1 TAB GT BID, #60 TAB 11/14/24 Baclofen (Baclofen) 10 Mg Tab, 20 MG GT Q6HR for 30 Days, MG 11/14/24 Information Source: Relative (Mother) Mode of Arrival: EMS Severity: Moderate Timing: Minutes Duration: Since onset Past Medical History PAST MEDICAL HISTORY: Seizures Past Medical History (Other): Traumatic brain injury, nonverbal Surgical History (Other): PEG, Tracheostomy Family History Family History: Reviewed,noncontributory to illness Social History Smoker: Non-Smoker Alcohol: Denies ETOH Use Drugs: Denies Drug Use Lives In: Home Unable to Obtain due to: Other (Patient nonverbal) Physical Exam General Appearance: No Apparent Distress HEENT: Other (Moist mucous membranes. Trach site appears clean, dry and intact) Neck: Normal Inspection Respiratory: No Accessory Muscle Use, No Respiratory Distress, Other (Coarse bilateral breath sounds) Cardiovascular: No Edema, No JVD, Tachycardia Breast Exam: Deferred Gastrointestinal: Non Tender, Soft Genitalia: Deferred Pelvic: Deferred Rectal: Deferred Extremities: Non-tender, No pedal edema Neurologic: Other (Opens eyes, nonverbal. At baseline per mother) Cerebellar Function: NOT DONE Reflexes: NOT DONE Skin: Dry, Normal Color, Warm Lymphatic: NOT DONE Was a procedure done? Was a procedure done?: No EKG EKG : Comments Sinus tach, rate 147, normal NV and QRS intervals, QTC prolonged at 601, left axis deviation, old inferior or anteroseptal infarct, nonspecific T change. Differential Dx Considerations may include: Anemia, electrolyte imbalance, pneumonia, sepsis, UTI, among others X-Ray, Labs, Meds, VS Vital Signs Date Time Temp Pulse Resp B/P (MAP) Pulse Ox O2 Delivery O2 Flow Rate FiO2 01/02/25 22:42 102.4 01/02/25 22:38 102.4 01/02/25 22:00 102.4 132 30 141/80 99 6.0 28 102.4 01/02/25 22:00 102.4 132 37 141/80 (100) 99 102.4 01/02/25 21:49 147 01/02/25 21:38 102.4 01/02/25 21:17 98.5 140 38 152/73 98 98.5 01/02/25 21:16 Room Air* 0 21 01/02/25 21:16 102.4 148 30 144/79 (100) 94 102.4 Lab Test 01/02/25 22:25 Range/Units White Blood Count 27.8 #H 4.4-10.8 10^3/uL Red Blood Count 5.31 4.5-5.90 10^6/uL Hemoglobin 15.3 13.5-17.5 g/dL Hematocrit 46.0 # 41.0-53.0 % Mean Corpuscular Volume 86.6 80.0-100.0 fL Mean Corpuscular Hemoglobin 28.8 28.0-32.0 pg Mean Corpuscular Hemoglobin Concent 33.3 32.0-36.0 g/dL Red Cell Distribution Width 15.3 H 11.8-14.3 % Platelet Count 183 140-450 10^3/uL Mean Platelet Volume 8.9 6.9-10.8 fL Neutrophils (%) (Auto) 37.0-80.0 % Lymphocytes (%) (Auto) 10.0-50.0 % Monocytes (%) (Auto) 0.0-12.0 % Basophils (%) (Auto) 0.0-2.0 % Neutrophils # (Auto) 1.6-8.6 10 ^3/uL Lymphocytes # (Auto) 0.4-5.4 10 ^3/uL Monocytes # (Auto) 0-1.3 10 ^3/uL Differential Total Cells Counted 100.0 100 Neutrophils % (Manual) 87 H 37.0-80.0 Band Neutrophils % (Manual) 0 Lymphocytes % (Manual) 7 L 10.0-50.0 Monocytes % (Manual) 6 0-12 Eosinophils % (Manual) 0 0-7 Basophils % (Manual) 0 0.0-2.0 Metamyelocytes % (manual) 0 Myelocytes % (Manual) 0 Promyelocytes % (Manual) 0 Blast Cells % (Manual) 0 Reactive Lymphocytes 0 Platelet Estimate Adequate Prothrombin Time 11.3 9.3-11.8 sec Prothrombin Time INR 1.07 0.9-1.15 Activated Partial Thromboplast Time 30.2 24.5-34.5 SEC Sodium Level 141 136-145 mmol/L Potassium Level 3.7 3.5-5.1 mmol/L Chloride Level 108 H 98-107 mmol/L Carbon Dioxide Level 22 20-31 mmol/L Anion Gap 11 5-15 Blood Urea Nitrogen 11 9-23 mg/dL Creatinine 0.59 L 0.700-1.30 mg/dL Glomerular Filtration Rate Calc 119 >90 mL/min BUN/Creatinine Ratio 18.6 10.0-20.0 Serum Glucose 119 H 74-106 mg/dL Lactic Acid Level 3.9 *H 0.4-2.0 mmol/L Calcium Level 8.4 L 8.7-10.4 mg/dL Total Bilirubin 1.1 H 0.2-1.0 mg/dL Aspartate Amino Transferase (AST) 80 H 13-40 U/L Alanine Aminotransferase (ALT) 114 H 7-40 U/L Alkaline Phosphatase 128 H 46-116 U/L Total Protein 6.5 5.7-8.2 g/dL Albumin 3.8 3.2-4.8 g/dL Current Medications Medications (Trade) Dose Ordered Sig/Ata Route Start Time Stop Time Status Last Admin Acetaminophen (Tylenol Solution Oral) 1,000 mg ONCE ONCE GT 01/02/25 21:30 01/02/25 21:33 DC 01/02/25 21:38 Lactated Ringer's 2,200 ml @ 2,200 mls/hr ONCE ONCE IV 01/02/25 22:00 01/02/25 22:59 DC 01/02/25 22:00 Vancomycin HCl 200 ml @ 200 mls/hr ONCE ONCE IV 01/02/25 22:00 01/02/25 22:59 DC 01/02/25 22:23 Cefepime HCl 50 ml @ 12.5 mls/hr Q8HR IV 01/02/25 22:00 01/03/25 05:58 Acetaminophen (Tylenol Solution Oral) 600 mg ONCE ONCE GT 01/02/25 22:45 01/02/25 22:46 DC 01/02/25 22:42 PROCEDURE(s): CXRP - CHEST PORTABLE REASON: sob ORDER NUMBER(s): [id number], ACCESSION NUMBER(s): [id number] CHEST RADIOGRAPH REASON FOR EXAM: Shortness of breath COMPARISON: XY CHEST XRAY 1 VIEW on DOS: 12/29/24, XY CHEST PORTABLE on DOS: 12/20/24, XY CHEST PORTABLE on DOS: 12/15/24, XY CHEST XRAY 1 VIEW on DOS: , XY CHEST PORTABLE on DOS: 11/29/24 TECHNIQUE: One view of the chest is provided FINDINGS: The cardiomediastinal silhouette is partially obscured. There are low inspiratory volumes. Diffuse bilateral airspace disease. There is elevation of the right hemidiaphragm. There is partial visualization of a ventriculoperitoneal shunt. There is a tracheostomy. No acute osseous abnormal ity. IMPRESSION: Low inspiratory volumes. Diffuse bilateral airspace disease, slightly increased compared with the most recent prior study X-Ray, Labs, Meds, VS Comment 49-year-old male with a history of seizures, TBI, nonverbal status, bed-bound, endocarditis and 2014, trach and PEG and recent admission for MDRO sepsis, discharged yesterday from here, brought in by EMS after mother called 911 for total body shaking and purple appearance of his fingertips, then found to be febrile at triage Vitals remarkable for heart rate 140, respiratory rate 38, temperature 102.4, BP 152/73 Exam remarkable for bilateral coarse breath sounds, tachypnea and tachycardia Chest x-ray IMPRESSION: Low inspiratory volumes. Diffuse bilateral airspace disease, slightly increased compared with the most recent prior study CBC remarkable for WBC 27.8, CMP remarkable for mild transaminitis, lactic 3.9 Patient treated with the following in the ED: 30 cc/kilogram LR bolus, Tylenol 1 g via PEG, ibuprofen 600 mg via PEG, cefepime 2 g IV, vancomycin per pharmacy IV On re-evaluation, heart rate is improving, patient is still febrile, so external cooling measures were initiated. Plan is to admit the patient for IV antibiotics and ID evaluation Time of 1ST Reevaluation: 22:55 Reevaluation 1ST: Unchanged Patient Education/Counseling: Other (Patient nonverbal) Family Education/Counseling: Diagnosis, Treatment SEPSIS Sepsis Screen Date sepsis recognized/suspect: Jan 02, 2025 Time Sepsis recognized/suspect: 2116 Recent Procedure: No On Antibiotic Therapy: No Respiratory Rate >20: Yes Heart Rate >90: Yes Temp<36 C (96.8 F) or >38.3 C: Yes SBP <90 or MAP <65 mmHG: No New Acute Mental Status Change: No Is the patient on CPAP, BIPAP,: No Physician Orders Urinalysis (01/02/25 21:52) Chest Portable (01/02/25 21:52) Accucheck (01/02/25 21:52) Blood Culture (01/02/25 21:52) Cefepime 1gm/ 50ml (Maxipime 1gm/50ml) (01/02/25 22:00) Notify Md If Map <65 Or Bp<90 (01/02/25 21:52) If Map<65 Start Vasopressor (01/02/25 21:52) Sepsis Reassesment After Fluid (01/02/25 22:52) Vital Signs Date Time Temp Pulse Resp B/P (MAP) Pulse Ox O2 Delivery O2 Flow Rate FiO2 01/02/25 22:42 102.4 01/02/25 22:38 102.4 01/02/25 22:00 102.4 132 30 141/80 99 6.0 28 102.4 01/02/25 22:00 102.4 132 37 141/80 (100) 99 102.4 01/02/25 21:49 147 01/02/25 21:38 102.4 01/02/25 21:17 98.5 140 38 152/73 98 98.5 01/02/25 21:16 Room Air* 0 21 01/02/25 21:16 102.4 148 30 144/79 (100) 94 102.4 Laboratory Tests Test 01/02/25 22:25 Lactic Acid Level 3.9 mmol/L (0.4-2.0) *H White Blood Count 27.8 10^3/uL (4.4-10.8) #H Medications Medications Dose Ordered Sig/Ata Route Start Time Stop Time Status Last Admin Dose Admin Acetaminophen 600 mg ONCE ONCE GT 01/02/25 22:45 01/02/25 22:46 DC 01/02/25 22:42 Acetaminophen 1,000 mg ONCE ONCE GT 01/02/25 21:30 01/02/25 21:33 DC 01/02/25 21:38 Cefepime HCl 50 ml @ 12.5 mls/hr Q8HR IV 01/02/25 22:00 01/03/25 05:58 Lactated Ringer's 2,200 ml @ 2,200 mls/hr ONCE ONCE IV 01/02/25 22:00 01/02/25 22:59 DC 01/02/25 22:00 Vancomycin HCl 200 ml @ 200 mls/hr ONCE ONCE IV 01/02/25 22:00 01/02/25 22:59 DC 01/02/25 22:23 Reassessment Post Fluid SEPSIS FOCUS EXAM(REASSESSMENT Sepsis reassessment focused exam completed. Date: 01/02/25 Time 23:37 Departure 1 Departure Time of Disposition: 23:30 Impression: Primary Impression: Pneumonia Additional Impression: Sepsis Disposition: 09 ADMITTED INPATIENT Admit to: Tele Condition: Guarded Critical Care Note Critical Care Time?: Yes (45 min-critical care time only) Critical care comment: Critical care time including multiple bedside re-evaluations, review of lab and imaging studies, and discussion of the case with the admitting provider. Patient is high risk for respiratory, metabolic and/or hemodynamic decompensation Stability Stability form required: No Heart Score Heart Score: Heart Score Response (Comments) Value History N/A 0 EKG N/A 0 Age N/A 0 Risk Factors N/A 0 Troponin N/A 0 Total 0 I personally scribed for NOAH ARAGON MD ([email or web address]) on 01/02/25 at 22:48. Electronically submitted by Matthew Boo ([facility]). I personally scribed for NOAH ARAGON MD ([email or web address]) on 01/02/25 at 22:56. Electronically submitted by Matthew Boo ([facility]). NOAH ARAGON MD Jan 02, 2025 22:48
[2025-01-02 22:55] LABS: INR 1.07 (0.9-1.15); Partial Thromboplastin Time 30.2 SEC (24.5-34.5); Prothrombin Time 11.3 sec (9.3-11.8)
[2025-01-02 22:56] LABS: Albumin 3.8 g/dL (3.2-4.8); Anion Gap 11 (5-15); BUN/Creatinine Ratio 18.6 (10.0-20.0); Bilirubin, Total 1.1 mg/dL (0.2-1.0); Blood Urea Nitrogen 11 mg/dL (9-23); Carbon Dioxide 22 mmol/L (20-31); Potassium 3.7 mmol/L (3.5-5.1); Sodium 141 mmol/L (136-145); Total Protein 6.5 g/dL (5.7-8.2)
[2025-01-02 22:59] LABS: Alanine Aminotransferase 114 U/L (7-40); Alkaline Phosphatase 128 U/L (46-116); Calcium 8.4 mg/dL (8.7-10.4); Chloride 108 mmol/L (98-107); Glucose 119 mg/dL (74-106)
--- NOTE | 2025-01-02 23:02 | DVH ---
CHEST RADIOGRAPH REASON FOR EXAM: Shortness of breath COMPARISON: XY CHEST XRAY 1 VIEW on DOS: 12/29/24, XY CHEST PORTABLE on DOS: 12/20/24, XY CHEST PORTABLE on DOS: 12/15/24, XY CHEST XRAY 1 VIEW on DOS: 12/11/24, XY CHEST PORTABLE on DOS: 11/29/24 TECHNIQUE: One view of the chest is provided FINDINGS: The cardiomediastinal silhouette is partially obscured. There are low inspiratory volumes. Diffuse bilateral airspace disease. There is elevation of the right hemidiaphragm. There is partial visualization of a ventriculoperitoneal shunt. There is a tracheostomy. No acute osseous abnormality . IMPRESSION: Low inspiratory volumes. Diffuse bilateral airspace disease, slightly increased compared with the recent prior study
[2025-01-02 23:09] LABS: Lactic Acid w/Reflex 3.9 mmol/L (0.4-2.0)
[2025-01-02] MEDS ORDERED: ONDANSETRON HCL 4 MG/2 ML VIAL IV PRN (23:30)
[2025-01-02] MEDS ORDERED: NITROGLYCERIN 0.4 MG SL TAB SL PRN (23:30)
[2025-01-02] MEDS ORDERED: HYDROcodone-ACET 5/325MG TAB PO PRN (23:30)
[2025-01-02] MEDS ORDERED: LORazepam 2MG/ML-1ML VIAL IV PRN (23:30)
[2025-01-02] MEDS ORDERED: diphenhdrAMINE HCL 50 MG/1 ML VL IV PRN (23:30)
[2025-01-02] MEDS ORDERED: IBUPROFEN 100MG/5ML ORAL SUSP 100 MG/5 ML UD GT PRN (23:30)
[2025-01-02] MEDS ORDERED: VANCOMYCIN PER PHARMACY 0 MG IV SCH (23:30)
[2025-01-02] MEDS ORDERED: MORPHINE SULFATE INJ 2 MG/ml SYRG IV PRN (23:30)
[2025-01-02] MEDS: CEFEPIME 1GM/ 50ML 50 ML IV SCH (23:36)
--- NOTE | 2025-01-02 23:40 | DVHHP2 ---
History of Present Illness Reason for Visit: Sepsis, unspecified organism History of Present Illness The patient is a 49-year-old male nonverbal, bed-bound with past medical history of traumatic brain injury and seizures who presented to [facility] for evaluation of fever. Patient was discharged from [facility] yesterday, here today after mother called 911 for total body shaking purple fingernails, patient's oxygen saturation was 93-94 % which is his baseline, heart rate in the 150s. Patient was seen and evaluated in the ED, laboratory data shows WBC 27.8, plate lets 183, sodium 141, potassium 3.7, BUN 11, creatinine 0.59, GFR 119, glucose 119, calcium 8.4, lactic acid 3.9, total bilirubin 1.1, AST 80, ALT 114, alkaline phos 128, blood pressure 141/80, heart rate 148 trending down to 112, temperature 102.4 F trending down to 99.8 F, O2 saturation 99% on tracheostomy. Chest x-ray revealing low inspiratory volume, diffuse bilateral airspace disease, slightly increased compared with the most recent prior study. Patient was started on IV antibiotic regimen vancomycin, please see medication orders section in the computer. On my assessment, mother at bedside, no diaphoresis, no diarrhea, no vomiting, no chills at this moment. Patient was admitted for further evaluation and medical management. Past Medical History Endocarditis, Seizures, Traumatic brain injury, nonverbal Past Surgical History Tracheostomy Family History Reviewed, noncontributory to the management of this case. Past Social History The patient lives at home, denies smoking, alcohol or illicit drugs abuse. Review of Systems Constitutional: Yes: Fever, Chills, Weakness; No: Sweats, Malaise, Other Eyes: No: Pain, Vision change, Conjunctivae inflammation, Eyelid inflammation, Other, Redness ENT: No: Ear pain, Ear discharge, Nose pain, Nose discharge, Nose congestion, Mouth pain, Mouth swelling, Throat pain, Throat swelling, Other Respiratory: No: Cough, Dry, Shortness of breath, SOB with excertion, Wheezing, Hemoptysis, Pleuritic Pain, Sputum, Wheezing, Other Cardiovascular: No: Chest Pain, Palpitations, Orthopnea, Paroxysmal Noc. Dyspnea, Edema, Lt Headedness, Other Gastrointestinal: Other (PEG tube in place); No: Nausea, Vomiting, Abdominal Pain, Diarrhea, Constipation, Melena, Hematochezia Genitourinary: No Dysuria, No Frequency, No Incontinence, No Hematuria, No Retention; Other (El catheter in place) Musculoskeletal: No: other, neck pain, shoulder pain, arm pain, back pain, hand pain, leg pain, foot pain Skin: No: Rash, Lesions, Jaundice, Bruising, Other Neurological: No: Weakness, Numbness, Incoordination, Change in speech, Confusion, Seizures, Other Allergies: Coded Allergies: Piperacillin (Verified Adverse Reaction, Intermediate, URTICARIA, 12/11/24) Tazobactam (Verified Adverse Reaction, Intermediate, URTICARIA, 12/11/24) Medications Current Medications Medications Dose Ordered Sig/Ata Route Start Time Stop Time Status Last Admin Dose Admin Cefepime HCl 50 ml @ 12.5 mls/hr Q8HR IV 01/02/25 22:00 01/02/25 23:36 12.5 MLS/HR Exam Vital Signs Vital Signs Date Time Temp Pulse Resp B/P (MAP) Pulse Ox O2 Delivery O2 Flow Rate FiO2 01/02/25 22:42 102.4 01/02/25 22:00 132 37 141/80 (100) 99 01/02/25 21:16 Room Air* 0 21 General Appearance: Alert, Cooperative, No acute distress HEENT: Atraumatic, PERRLA, EOMI, Mucous membr. moist/pink Respiratory: Normal air movement, Other (Tracheostomy) Cardiovascular: Regular rate, Normal S1, Normal S2, No murmurs Abdominal: Normal bowel sounds, Soft, No tenderness, No hepatospenomegaly, No masses Extremities: No clubbing, No cyanosis, No edema, Normal pulses, No tenderness/swelling Skin: No rashes, No significant lesion Neuro: Normal tone, Cranial nerves 3-12 NL, Reflexes 2+, Other (Generalized weakness) Psych/Mental Status: Mental status NL, Mood NL Labs/Xrays Labs Test 01/02/25 22:25 Range/Units White Blood Count 27.8 #H 4.4-10.8 10^3/uL Red Blood Count 5.31 4.5-5.90 10^6/uL Hemoglobin 15.3 13.5-17.5 g/dL Hematocrit 46.0 # 41.0-53.0 % Mean Corpuscular Volume 86.6 80.0-100.0 fL Mean Corpuscular Hemoglobin 28.8 28.0-32.0 pg Mean Corpuscular Hemoglobin Concent 33.3 32.0-36.0 g/dL Red Cell Distribution Width 15.3 H 11.8-14.3 % Platelet Count 183 140-450 10^3/uL Mean Platelet Volume 8.9 6.9-10.8 fL Neutrophils (%) (Auto) 37.0-80.0 % Lymphocytes (%) (Auto) 10.0-50.0 % Monocytes (%) (Auto) 0.0-12.0 % Basophils (%) (Auto) 0.0-2.0 % Neutrophils # (Auto) 1.6-8.6 10 ^3/uL Lymphocytes # (Auto) 0.4-5.4 10 ^3/uL Monocytes # (Auto) 0-1.3 10 ^3/uL Prothrombin Time 11.3 9.3-11.8 sec Prothrombin Time INR 1.07 0.9-1.15 Activated Partial Thromboplast Time 30.2 24.5-34.5 SEC Sodium Level 141 136-145 mmol/L Potassium Level 3.7 3.5-5.1 mmol/L Chloride Level 108 H 98-107 mmol/L Carbon Dioxide Level 22 20-31 mmol/L Anion Gap 11 5-15 Blood Urea Nitrogen 11 9-23 mg/dL Creatinine 0.59 L 0.700-1.30 mg/dL Glomerular Filtration Rate Calc 119 >90 mL/min BUN/Creatinine Ratio 18.6 10.0-20.0 Serum Glucose 119 H 74-106 mg/dL Lactic Acid Level 3.9 *H 0.4-2.0 mmol/L Calcium Level 8.4 L 8.7-10.4 mg/dL Total Bilirubin 1.1 H 0.2-1.0 mg/dL Aspartate Amino Transferase (AST) 80 H 13-40 U/L Alanine Aminotransferase (ALT) 114 H 7-40 U/L Alkaline Phosphatase 128 H 46-116 U/L Total Protein 6.5 5.7-8.2 g/dL Albumin 3.8 3.2-4.8 g/dL PATIENT: DOMINIC MELENDEZ ACCT: [id number] UNIT: [id number] : 1975 LOC: ER ROOM / BED: / AGE / SEX: 49 / M ADM STATUS: REG ER SERVICE 51 ORDERING PHYSICIAN: NOAH ARAGON MD PROCEDURE(s): CXRP - CHEST PORTABLE REASON: sob ORDER NUMBER(s): [id number], ACCESSION NUMBER(s): [id number] CHEST RADIOGRAPH REASON FOR EXAM: Shortness of breath COMPARISON: XY CHEST XRAY 1 VIEW on DOS: 12/29/24, XY CHEST PORTABLE on DOS: 12/20/24, XY CHEST PORTABLE on DOS: 12/15/24, XY CHEST XRAY 1 VIEW on DOS: 12/11/24, XY CHEST PORTABLE on DOS: 11/29/24 TECHNIQUE: One view of the chest is provided FINDINGS: The cardiomediastinal silhouette is partially obscured. There are low inspiratory volumes. Diffuse bilateral airspace disease. There is elevation of the right hemidiaphragm. There is partial visualization of a ventriculoperitoneal shunt. There is a tracheostomy. No acute osseous abnormality. IMPRESSION: Low inspiratory volumes. Diffuse bilateral airspace disease, slightly increased compared with the most recent prior study SEPSIS Sepsis Screen Date sepsis recognized/suspect: Jan 02, 2025 Time Sepsis recognized/suspect: 2116 Recent Procedure: No On Antibiotic Therapy: No Respiratory Rate >20: Yes Heart Rate >90: Yes Temp<36 C (96.8 F) or >38.3 C: Yes SBP <90 or MAP <65 mmHG: No New Acute Mental Status Change: No Is the patient on CPAP, BIPAP,: No Physician Orders Electrocardigram (01/02/25 21:44) Complete Blood Count (01/02/25 21:52) Urinalysis (01/02/25 21:52) Chest Portable (01/02/25 21:52) Accucheck (01/02/25 21:52) Blood Culture (01/02/25 21:52) Lactic Acid W/ Reflex Order (01/03/25 00:00) Cefepime 1gm/ 50ml (Maxipime 1gm/50ml) (01/02/25 22:00) Notify Md If Map <65 Or Bp<90 (01/02/25 21:52) If Map<65 Start Vasopressor (01/02/25 21:52) Sepsis Reassesment After Fluid (01/02/25 22:52) Manual Differential (01/02/25 22:25) Cooling Measure (01/02/25 ) Vancomycin Per Pharmacy (01/02/25 23:30) Baclofen Tablet (Liorisal Tablet) (01/03/25 06:00) Diphenhdramine Injection (Benadryl Injec (01/02/25 23:30) Levetiracetam Ivpb Keppra (01/03/25 10:00) Lorazepam 2mg/Ml Inj (Ativan Inj) (01/02/25 23:30) Ibuprofen 100mg/5 Ml Oral Susp (Motrin 1 (01/02/25 23:30) Levalbuterol Hcl (Xopenex Medneb) (01/03/25 00:00) Ascorbic Acid Tablet (Vitamin C Tablet) (01/03/25 10:00) Admit (01/02/25 23:25) Allergies (01/02/25 23:25) Code Status (01/02/25:) Sodium Chloride Lock (Saline Lock Ns) (01/03/25 06:00) Oxygen Per Hour (01/02/25 23:25) Hydrocodone-Acet 5/325mg Tab ([place] 5/32 (01/02/25 23:30) Ondansetron Hcl (Zofran) (01/02/25 23:30) Fall Risk Precautions In Place QSHIFT (01/02/25 23:25) Complete Blood Count (01/03/25 04:00) Comprehensive Metabolic Panel (01/03/25 04:00) Cardiac Diet-2gna,Lofat,Lochol (01/03/25 Breakfast) Condition: Serious (01/02/25 23:25) Maintain Bed Rest (01/02/25 23:25) Sequential Compression Device (01/02/25 ) Nitroglycerin Sublingual (Ntrostat Subli (01/02/25 23:30) Morphine Sulfate Injection (01/02/25 23:30) Stat Ekg For Chest Pain (01/02/25 23:25) Notify Md Of Changes From Base (01/02/25 23:25) Statistical Methods Teacher For 24 Hours (01/02/25 23:25) Vital Signs Date Time Temp Pulse Resp B/P (MAP) Pulse Ox O2 Delivery O2 Flow Rate FiO2 01/02/25 22:42 102.4 01/02/25 22:38 102.4 01/02/25 22:00 102.4 132 37 141/80 (100) 99 102.4 01/02/25 21:49 147 01/02/25 21:38 102.4 01/02/25 21:17 98.5 140 38 152/73 98 98.5 01/02/25 21:16 Room Air* 0 21 01/02/25 21:16 102.4 148 30 144/79 (100) 94 102.4 Laboratory Tests Test 01/02/25 22:25 Lactic Acid Level 3.9 mmol/L (0.4-2.0) *H White Blood Count 27.8 10^3/uL (4.4-10.8) #H Medications Medications Dose Ordered Sig/Ata Route Start Time Stop Time Status Last Admin Dose Admin Acetaminophen 600 mg ONCE ONCE GT 01/02/25 22:45 01/02/25 22:46 DC 01/02/25 22:42 600 MG Acetaminophen 1,000 mg ONCE ONCE GT 01/02/25 21:30 01/02/25 21:33 DC 01/02/25 21:38 1,000 MG Cefepime HCl 50 ml @ 12.5 mls/hr Q8HR IV 01/02/25 22:00 01/02/25 23:36 12.5 MLS/HR Lactated Ringer's 2,200 ml @ 2,200 mls/hr ONCE ONCE IV 01/02/25 22:00 01/02/25 22:59 DC 01/02/25 22:00 2,200 MLS/HR Vancomycin HCl 200 ml @ 200 mls/hr ONCE ONCE IV 01/02/25 22:00 01/02/25 22:59 DC 01/02/25 22:23 200 MLS/HR Assessment/Plan Assessment/Plan Sepsis, unspecified organism Elevated liver enzymes Generalized weakness Acute hypoxic respiratory failure Pneumonia, unspecified organism Plan 1. Admit to telemetry unit 2. Breathing treatment 3. Pain control management 4. IV antibiotic management 5. Management of fluids and electrolytes 6. Consultation for hospitalist 7. Diagnostic test chest x-ray 8. DVT prophylaxis-on SCDs 9. Repeat labs CBC, CMP in a.m. 10. Home medication reviewed and reconciled 11. Continue with current medical management 12. Treatment plan discussed with patient and RN. Patient verbalized understanding. Plan discussed with: Patient, Other (RN) My Orders Orders - MARTIR GARY DNP Procedure Category Date Status Time Vancomycin Per PHA 01/02/25 Verified Pharmacy 23:30 Baclofen Tablet PHA 01/03/25 Verified (Liorisal Tablet) 06:00 Diphenhdramine PHA 01/02/25 Verified Injection (Benadryl 23:30 Levetiracetam Ivpb PHA 01/03/25 Verified Keppra 10:00 Lorazepam 2mg/Ml Inj PHA 01/02/25 Verified (Ativan Inj) 23:30 Ibuprofen 100mg/5 Ml PHA 01/02/25 Verified Oral Susp (Motrin 1 23:30 Levalbuterol Hcl PHA 01/03/25 Verified (Xopenex Medneb) 00:00 Ascorbic Acid Tablet [facility] 01/03/25 Verified (Vitamin C Tablet) 10:00 Admit ADMIT 01/02/25 Verified 23:25 Allergies [place] 01/02/25 Verified 23:25 Code Status CODE 01/02/25 Verified 23:25 Sodium Chloride Lock PHA 01/03/25 Verified (Saline Lock Ns) 06:00 Oxygen Per Hour RT 01/02/25 Verified 23:25 Hydrocodone-Acet PHA 01/02/25 Verified 5/325mg Tab ([place] 23:30 Ondansetron Hcl PHA 01/02/25 Verified (Zofran) 23:30 Fall Risk Precautions [facility] 01/02/[address] 23:25 Complete Blood Count LAB 01/03/25 Verified 04:00 Comprehensive LAB 01/03/25 Verified Metabolic Panel 04:00 Cardiac DIET 01/03/25 Verified Diet-2gna,Lofat,Lochol Breakfast Condition: Serious [place] 01/02/25 Verified 23:25 Maintain Bed Rest [facility] 01/02/25 Verified 23:25 Sequential [place] 01/02/25 Verified Compression Device Nitroglycerin PHA 01/02/25 Verified Sublingual (Ntrostat 23:30 Morphine Sulfate PHA 01/02/25 Verified Injection 23:30 Stat Ekg For Chest [place] 01/02/25 Verified Pain 23:25 Notify Md Of Changes [facility] 01/02/25 Verified From Base 23:25 Statistical Methods Teacher For KAMERON 01/02/25 Verified 24 Hours 23:25 Problem List: (1) Sepsis, unspecified organism (2) Elevated liver enzymes (3) Generalized weakness (4) Acute hypoxic respiratory failure (5) Pneumonia, unspecified organism Date of Service: Jan 02, 2025 Billing Provider: MARTIR GARY DNP Common Visit Codes: [id number] INP/OBS CARE (HIGH) MARTIR GARY DNP Jan 02, 2025 23:40
[2025-01-02 23:48] LABS: Total Cells Counted 100.0 (100)
[2025-01-03] VITALS (13 sets, daily range): BP systolic 110–134; BP diastolic 69–82; PULSE 84–112; RESP 18–30; TEMP 97.9–98.7; O2SAT 95–100
[2025-01-03] MEDS: LEVALBUTEROL HCL 1.25 MG/3 ML NEB NEB SCH (00:27)
[2025-01-03 05:00] LABS: Hematocrit 42.5 % (41.0-53.0); Hemoglobin 14.2 g/dL (13.5-17.5); Mean Corpuscular Hemoglobin 29.1 pg (28.0-32.0); Mean Corpuscular Volume 87.3 fL (80.0-100.0); Nucleated Red Blood Cells % 0.0 %
[2025-01-03] MEDS: BACLOFEN 10 MG TAB GT SCH (05:55)
[2025-01-03] MEDS: SODIUM CHLOR 0.9% PF (SALINE LOCK) 10ML VIAL/SYR IV SCH (05:58)
[2025-01-03 06:15] LABS: Alkaline Phosphatase 104 U/L (46-116); Anion Gap 10 (5-15); BUN/Creatinine Ratio 9.1 (10.0-20.0); Carbon Dioxide 22 mmol/L (20-31); Glucose 100 mg/dL (74-106); Total Protein 5.8 g/dL (5.7-8.2)
[2025-01-03 06:16] LABS: Albumin 3.5 g/dL (3.2-4.8); Bilirubin, Total 1.0 mg/dL (0.2-1.0)
[2025-01-03 06:24] LABS: Alanine Aminotransferase 100 U/L (7-40); Blood Urea Nitrogen 5 mg/dL (9-23); Calcium 8.4 mg/dL (8.7-10.4); Chloride 109 mmol/L (98-107); Potassium 4.1 mmol/L (3.5-5.1); Sodium 141 mmol/L (136-145)
--- NOTE | 2025-01-03 06:44 | ECG ---
[facility] Test Date: 2025-01-02 Test Time: 21:49:19 Pat Name: DOMINIC MELENDEZ Department: [facility] ED Patient ID: [facility]-[id number] Room: 0207T Gender: M Gage Maker: CHASE : 1975 Requested By: NOAH BURROUGHS Order Number: [id number] Reading MD: Shahid Noriega Measurements Intervals [place] Rate: 147 P: 68 RI: 134 QRS: -27 QRSD: 89 T: 71 QT: 384 QTc: 601 Interpretive Statements Sinus tachycardia Consider left ventricular hypertrophy Inferior infarct, old Anterior Q waves, possibly due to LVH Prolonged QT interval Artifact in lead(s) V4 Electronically Signed On 01-05-2025 18:18:11 PDT by Shahid Noriega Please click the below link to view image of tracing.
[2025-01-03] MEDS: ASCORBIC ACID 500 MG TAB GT SCH (09:52)
[2025-01-03] MEDS: levETIRAcetam 1000 mg/100ml 100 ML IV SCH (09:53)
[2025-01-03] MEDS: VANCOMYCIN 1.5GM/300ML 300 ML IV SCH (11:16)
[2025-01-03 14:35] LABS: Urine Protein, UAD Negative (Negative)
[2025-01-03 16:30] LABS: Base Excess -2.9 mmol/L (-2.0-3.0)
[2025-01-03] MEDS: VANCOMYCIN 1.5GM/250ML 250 ML IV SCH (18:49)
--- NOTE | 2025-01-03 19:35 | DVHPN2 ---
Subjective No change Reviewed: Care Plan, H&P, Labs, Medications, Previous Orders, Radiology Changes from previous H/P or p: No Changes Objective Vitals Vital Signs Date Time Temp Pulse Resp B/P (MAP) Pulse Ox O2 Delivery O2 Flow Rate FiO2 01/03/25 17:11 98.7 105 30 134/77 (96) 97 98.7 01/03/25 17:09 T-piece 12.0 01/03/25 17:09 N/A Intake/Output Intake and Output 01/03/25 07:00 Intake Total 2450 ml Balance 2450 ml IV Total 2450 ml General Appearance: Other (Noncommunicating) HEENT: Other (Traumatic status post craniotomy) Lungs: Other (Few crackles bibasilar areas) Cardiovascular: Regular rate Abdomen: Soft Skin: Other (Stage I decubitus in the gluteal areas) Medications Current Medications Medications Dose Ordered Sig/Ata Route Start Time Stop Time Status Last Admin Dose Admin Cefepime HCl 50 ml @ 12.5 mls/hr Q8HR IV 01/02/25 22:00 01/03/25 14:39 12.5 MLS/HR Vancomycin HCl 0 ml @ 0 mls/hr UD IV 01/02/25 23:30 Baclofen 10 mg Q8HR GT 01/03/25 06:00 01/03/25 14:39 10 MG Diphenhydramine HCl 25 mg Q4HP PRN IV 01/02/25 23:30 Levetiracetam 100 ml @ 400 mls/hr BID IV 01/03/25 10:00 01/03/25 09:53 400 MLS/HR Lorazepam 1 mg Q2HP PRN IV 01/02/25 23:30 Ibuprofen 600 mg Q6HP PRN GT 01/02/25 23:30 Levalbuterol HCl 1.25 mg Q6HR NEB 01/03/25 00:00 01/03/25 19:25 1.25 MG Ascorbic Acid 500 mg DAILY GT 01/03/25 10:00 01/03/25 09:52 500 MG Sodium Chloride 10 ml Q8HR IV 01/03/25 06:00 01/03/25 14:39 10 ML Acetaminophen/ Hydrocodone Bitart 1 tab Q4HP PRN PO 01/02/25 23:30 Ondansetron HCl 4 mg Q4HP PRN IV 01/02/25 23:30 Nitroglycerin 0.4 mg Q5MINP PRN SL 01/02/25 23:30 Morphine Sulfate 2 mg Q30M PRN IV 01/02/25 23:30 Vancomycin HCl 250 ml @ 166.667 mls/hr Q8H IV 01/03/25 19:00 01/03/25 18:49 166.667 MLS/HR Laboratory Results Laboratory Tests 01/03/25 04:50 Chemistry Test 01/02/25 22:25 01/03/25 04:50 Albumin 3.8 g/dL (3.2-4.8) 3.5 g/dL (3.2-4.8) Calcium Level 8.4 mg/dL (8.7-10.4) L 8.4 mg/dL (8.7-10.4) L Total Protein 6.5 g/dL (5.7-8.2) 5.8 g/dL (5.7-8.2) Coagulation Test 01/02/25 22:25 Prothrombin Time 11.3 sec (9.3-11.8) Prothrombin Time INR 1.07 (0.9-1.15) Activated Partial Thromboplast Time 30.2 SEC (24.5-34.5) LFT Test 01/02/25 22:25 01/03/25 04:50 Alanine Aminotransferase (ALT) 114 U/L (7-40) H 100 U/L (7-40) H Alkaline Phosphatase 128 U/L (46-116) H 104 U/L (46-116) Aspartate Amino Transferase (AST) 80 U/L (13-40) H 67 U/L (13-40) H Total Bilirubin 1.1 mg/dL (0.2-1.0) H 1.0 mg/dL (0.2-1.0) Urinalysis Test 01/03/25 14:25 Urine Color Light yellow (Yellow) Urine Clarity Clear (Clear) Urine pH 7.5 (5.0-9.0) Urine Specific [place] 1.010 (1.001-1.035) Urine Protein Negative (Negative) Urine Ketones Negative (Negative) Urine Blood 1+ /uL (Negative) H Urine Nitrite Negative (Negative) Urine Bilirubin Negative (Negative) Urine Urobilinogen Normal mg/dL (Negative) Urine Leukocyte Esterase Negative /uL (Negative) Urine Glucose Normal mg/dL (Normal) Blood Gas Results Test 01/03/25 16:20 Arterial Blood pH 7.428 (7.350-7.450) FiO2 % 28.0 Assessment/Plan Assessment/Plan Acute respiratory distress/ Acute on chronic respiratory failure Sepsis with leukocytosis Status post tracheostomy Congestive heart failure Pleural effusion Seizures History of endocarditis History of traumatic brain injury status post left craniotomy Quadriplegia Nonverbal Bed-bound Status post CLINICAL LABORATORY AIDE shunt Chronic ground-glass opacities/GGO Elevated liver function tests Plan: Continue current plan of care. Liver ultrasound. Continue IV antibiotic. Cultures. Further plan per orders Plan discussed with: Other (Mother at bedside) My Orders Orders - ABEL STANLEY MD Procedure Category Date Status Time Urine Bacterial [place] 01/03/25 In Process Culture 13:45 Insert/Manage Urinary [place] 01/03/25 In Process Catheter 13:52 Date of Service: Jan 03, 2025 Billing Provider: ABEL STANLEY MD Common Visit Codes: [id number] INP/OBS CARE(HIGH) ABEL STANLEY MD Jan 03, 2025 19:35
--- NOTE | 2025-01-03 21:48 | DVH ---
INDICATION: hi LFT TECHNIQUE: Multiple real-time sonographic images of the abdomen were obtained. COMPARISON: None FINDINGS: Hepatic parenchyma shows increased echogenicity consistent with steatosis. The liver measur es 14.9 cm. No intrahepatic biliary ductal dilatation is noted. Multiple calcified granulomas. The gallbladder wall measures 0.17 cm and is unremarkable. Stones are noted in the gallbladder.. T he common duct measures point cm and is unremarkable. No pericholecystic fluid is noted. The right kidney measures 10.6 cm. No hydronephrosis. The pancreas is not well visualized due to obscuration from bowel gas. aorta are grossly unremarkable. IMPRESSION: 1. Multiple gallstones with a negative sonographic chase's sign. There is no gallbladder wall thicke anny or dilated common bile duct 2. Right kidney measures 10.6 cm. There is no hydronephrosis 3. Liver measures 14.9 cm with steatosis noted in the hepatic parenchyma.
[2025-01-04] VITALS (20 sets, daily range): BP systolic 119–142; BP diastolic 58–91; PULSE 100–121; RESP 17–22; TEMP 97.5–99.3; O2SAT 93–100
[2025-01-04 02:45] LABS: Albumin 3.6 g/dL (3.2-4.8); Alkaline Phosphatase 103 U/L (46-116); Anion Gap 13 (5-15); BUN/Creatinine Ratio 16.7 (10.0-20.0); Carbon Dioxide 21 mmol/L (20-31); Chloride 105 mmol/L (98-107); Potassium 4.3 mmol/L (3.5-5.1); Sodium 139 mmol/L (136-145); Total Protein 6.2 g/dL (5.7-8.2)
[2025-01-04 02:46] LABS: Bilirubin, Total 1.0 mg/dL (0.2-1.0)
[2025-01-04 02:47] LABS: Alanine Aminotransferase 81 U/L (7-40); Blood Urea Nitrogen 9 mg/dL (9-23); Calcium 8.6 mg/dL (8.7-10.4); Glucose 64 mg/dL (74-106)
[2025-01-04 10:15] LABS: Hematocrit 45.3 % (41.0-53.0); Hemoglobin 15.7 g/dL (13.5-17.5); Mean Corpuscular Hemoglobin 29.5 pg (28.0-32.0); Mean Corpuscular Volume 85.2 fL (80.0-100.0); Nucleated Red Blood Cells % 0.0 %
[2025-01-04] MEDS: LACOSAMIDE 50 MG TAB GT SCH (12:21)
[2025-01-04] MEDS: VANCOMYCIN 1GM/250ML KIT 250 ML IV ONE (13:28)
[2025-01-04] MEDS: Jevity 1.2 Cal/Fiber 1 Liter GT SCH (13:31)
--- NOTE | 2025-01-04 14:18 | DVH ---
INDICATION: FU TECHNIQUE: One view of the chest is provided COMPARISON: XY CHEST PORTABLE on DOS: 01/02/25, XY CHEST XRAY 1 VIEW on DOS: 12/29/24, XY CHEST PORTABLE on DOS: 12/20/24, XY CHEST PORTABLE on DOS: 12/15/24, XY CHEST XRAY 1 VIEW on DOS: 12/11/24, XY CHEST PO RTABLE on DOS: 01/02/25 FINDINGS: The cardiomediastinal silhouette is partially obscured. There are low inspiratory volumes. Diffuse b ilateral airspace disease. There is elevation of the right hemidiaphragm. There is partial visualizat ion of a ventriculoperitoneal shunt. There is a tracheostomy. No acute osseous abnormality. IMPRESSION: Low inspiratory volumes. Diffuse bilateral airspace disease, slightly increased compared with the recent prior study
--- NOTE | 2025-01-04 17:23 | DVHPN2 ---
Subjective No change Reviewed: Care Plan, H&P, Labs, Medications, Previous Orders, Radiology Changes from previous H/P or p: No Changes Objective Vitals Vital Signs Date Time Temp Pulse Resp B/P (MAP) Pulse Ox O2 Delivery O2 Flow Rate FiO2 01/04/25 16:57 99.3 115 18 119/58 (78) 96 99.3 01/04/25 10:00 T-piece 6.0 01/04/25 10:00 N/A Intake/Output Intake and Output 01/04/25 07:00 Intake Total 550 ml Output Total 1250 ml Balance -700 ml Intake Oral 0 ml IV Total 550 ml Output Urine Total 1250 ml General Appearance: Other (Noncommunicating) HEENT: Other (Traumatic status post craniotomy) Lungs: Other (Few crackles bibasilar areas) Cardiovascular: Regular rate Abdomen: Soft Skin: Other (Stage I decubitus in the gluteal areas) Medications Current Medications Medications Dose Ordered Sig/Ata Route Start Time Stop Time Status Last Admin Dose Admin Cefepime HCl 50 ml @ 12.5 mls/hr Q8HR IV 01/02/25 22:00 01/04/25 15:02 12.5 MLS/HR Vancomycin HCl 0 ml @ 0 mls/hr UD IV 01/02/25 23:30 Baclofen 10 mg Q8HR GT 01/03/25 06:00 01/04/25 15:02 10 MG Diphenhydramine HCl 25 mg Q4HP PRN IV 01/02/25 23:30 Levetiracetam 100 ml @ 400 mls/hr BID IV 01/03/25 10:00 01/04/25 12:17 400 MLS/HR Lorazepam 1 mg Q2HP PRN IV 01/02/25 23:30 Ibuprofen 600 mg Q6HP PRN GT 01/02/25 23:30 Levalbuterol HCl 1.25 mg Q6HR NEB 01/03/25 00:00 01/04/25 11:31 1.25 MG Ascorbic Acid 500 mg DAILY GT 01/03/25 10:00 01/04/25 12:21 500 MG Sodium Chloride 10 ml Q8HR IV 01/03/25 06:00 01/04/25 15:04 10 ML Acetaminophen/ Hydrocodone Bitart 1 tab Q4HP PRN PO 01/02/25 23:30 Ondansetron HCl 4 mg Q4HP PRN IV 01/02/25 23:30 Nitroglycerin 0.4 mg Q5MINP PRN SL 01/02/25 23:30 Morphine Sulfate 2 mg Q30M PRN IV 01/02/25 23:30 Lacosamide 150 mg BID GT 01/04/25 10:00 01/04/25 12:21 150 MG Enteral Nutritional Formula 1,000 ml 60ML/HR GT 01/04/25 12:15 01/04/25 13:31 1,000 ML Vancomycin HCl 250 ml @ 250 mls/hr Q8H IV 01/04/25 20:00 Laboratory Results Laboratory Tests 01/04/25 01:45 01/04/25 09:54 Chemistry Test 01/04/25 01:45 Albumin 3.6 g/dL (3.2-4.8) Calcium Level 8.6 mg/dL (8.7-10.4) L Total Protein 6.2 g/dL (5.7-8.2) LFT Test 01/04/25 01:45 Alanine Aminotransferase (ALT) 81 U/L (7-40) H Alkaline Phosphatase 103 U/L (46-116) Aspartate Amino Transferase (AST) 62 U/L (13-40) H Total Bilirubin 1.0 mg/dL (0.2-1.0) Urinalysis Test 01/03/25 14:25 Urine Color Light yellow (Yellow) Urine Clarity Clear (Clear) Urine pH 7.5 (5.0-9.0) Urine Specific [place] 1.010 (1.001-1.035) Urine Protein Negative (Negative) Urine Ketones Negative (Negative) Urine Blood 1+ /uL (Negative) H Urine Nitrite Negative (Negative) Urine Bilirubin Negative (Negative) Urine Urobilinogen Normal mg/dL (Negative) Urine Leukocyte Esterase Negative /uL (Negative) Urine Glucose Normal mg/dL (Normal) Microbiology Microbiology Date/Time Source Procedure Growth Status 01/04/25 00:10 Nose MRSA Screen - Final Complete 01/03/25 14:25 Voided Urine Urine Culture - Preliminary Resulted 01/02/25 22:25 Blood Blood Culture - Preliminary NO GROWTH AFTER 24 HOURS OF INCUBATION. Resulted Assessment/Plan Assessment/Plan Acute respiratory distress/ Acute on chronic respiratory failure Sepsis with leukocytosis Status post tracheostomy Congestive heart failure Pleural effusion Seizures History of endocarditis History of traumatic brain injury status post left craniotomy Quadriplegia Nonverbal Bed-bound Status post PHILOSOPHY FACULTY shunt Chronic ground-glass opacities/GGO Elevated liver function tests Plan: We will obtain ID consultation and pulmonology consultation with Dr. Spangler. Plan discussed with: Other (Discussed with mother at bedside) My Orders Orders - ABEL STANLEY MD Procedure Category Date Status Time LIVER US 01/03/25 Resulted 19:35 Chest Portable XY 01/04/25 Resulted 06:00 Blood Culture [place] 01/03/25 In Process 19:35 Respiratory Culture [place] 01/03/25 In Process W/ Gs 19:35 Nutritional PHA 01/04/25 In Process Supplements (Jevity 12:15 Tube Feeding DIET 01/04/25 Transmitted Lunch Order Specialty K[place]ERON 01/04/25 In Process Mattress 15:12 Date of Service: Jan 04, 2025 Billing Provider: ABEL STANLEY MD Common Visit Codes: [id number] INP/OBS CARE(HIGH) ABEL STANLEY MD Jan 04, 2025 17:23
[2025-01-04] MEDS: VANCOMYCIN 1GM/250ML KIT 250 ML IV SCH (19:55)
[2025-01-05] VITALS (18 sets, daily range): BP systolic 100–138; BP diastolic 59–81; PULSE 91–108; RESP 18–22; TEMP 98.6–99.5; O2SAT 93–100
[2025-01-05 03:19] LABS: Hematocrit 44.9 % (41.0-53.0); Hemoglobin 15.0 g/dL (13.5-17.5); Mean Corpuscular Hemoglobin 29.2 pg (28.0-32.0); Mean Corpuscular Volume 87.6 fL (80.0-100.0); Nucleated Red Blood Cells % 0.2 %
[2025-01-05 06:43] LABS: Hematocrit 44.3 % (41.0-53.0); Hemoglobin 15.1 g/dL (13.5-17.5); Mean Corpuscular Hemoglobin 29.7 pg (28.0-32.0); Mean Corpuscular Volume 86.9 fL (80.0-100.0); Nucleated Red Blood Cells % 0.1 %
[2025-01-05 07:04] LABS: Albumin 3.6 g/dL (3.2-4.8); Alkaline Phosphatase 104 U/L (46-116); Anion Gap 11 (5-15); BUN/Creatinine Ratio 19.2 (10.0-20.0); Blood Urea Nitrogen 10 mg/dL (9-23); Calcium 8.7 mg/dL (8.7-10.4); Carbon Dioxide 24 mmol/L (20-31); Chloride 106 mmol/L (98-107); Potassium 3.7 mmol/L (3.5-5.1); Sodium 141 mmol/L (136-145); Total Protein 6.2 g/dL (5.7-8.2)
[2025-01-05 07:05] LABS: Bilirubin, Total 0.6 mg/dL (0.2-1.0)
[2025-01-05 07:08] LABS: Alanine Aminotransferase 57 U/L (7-40); Glucose 120 mg/dL (74-106)
[2025-01-05] MEDS ORDERED: VANCOMYCIN 1GM/200ML PM 200 ML IV SCH (12:00)
--- NOTE | 2025-01-05 12:23 | DVHPN2 ---
Subjective Patient encephalopathic Reviewed: Care Plan, H&P, Labs, Medications, Previous Orders, Radiology Changes from previous H/P or p: No Changes General: Per HPI Objective Vitals Vital Signs Date Time Temp Pulse Resp B/P (MAP) Pulse Ox O2 Delivery O2 Flow Rate FiO2 01/05/25 12:05 101 18 100 01/05/25 11:59 T-piece 6 28 Cool Aerosol 28 01/05/25 09:09 99.3 117/66 (83) 99.3 Intake/Output Intake and Output 01/05/25 07:00 Intake Total 400 ml Output Total 1525 ml Balance -1125 ml Intake Oral 0 ml IV Total 400 ml Output Urine Total 1525 ml # Bowel Movements 1 General Appearance: Other (Noncommunicating) HEENT: Other (Traumatic status post craniotomy) Lungs: Other (Few crackles bibasilar areas) Cardiovascular: Regular rate Abdomen: Soft Skin: Other (Stage I decubitus in the gluteal areas) Medications Current Medications Medications Dose Ordered Sig/Ata Route Start Time Stop Time Status Last Admin Dose Admin Cefepime HCl 50 ml @ 12.5 mls/hr Q8HR IV 01/02/25 22:00 01/05/25 06:02 12.5 MLS/HR Vancomycin HCl 0 ml @ 0 mls/hr UD IV 01/02/25 23:30 Baclofen 10 mg Q8HR GT 01/03/25 06:00 01/05/25 06:02 10 MG Diphenhydramine HCl 25 mg Q4HP PRN IV 01/02/25 23:30 Levetiracetam 100 ml @ 400 mls/hr BID IV 01/03/25 10:00 01/05/25 09:27 400 MLS/HR Lorazepam 1 mg Q2HP PRN IV 01/02/25 23:30 Ibuprofen 600 mg Q6HP PRN GT 01/02/25 23:30 Levalbuterol HCl 1.25 mg Q6HR NEB 01/03/25 00:00 01/05/25 11:59 1.25 MG Ascorbic Acid 500 mg DAILY GT 01/03/25 10:00 01/05/25 09:27 500 MG Sodium Chloride 10 ml Q8HR IV 01/03/25 06:00 01/05/25 06:02 10 ML Acetaminophen/ Hydrocodone Bitart 1 tab Q4HP PRN PO 01/02/25 23:30 Ondansetron HCl 4 mg Q4HP PRN IV 01/02/25 23:30 Nitroglycerin 0.4 mg Q5MINP PRN SL 01/02/25 23:30 Morphine Sulfate 2 mg Q30M PRN IV 01/02/25 23:30 Lacosamide 150 mg BID GT 01/04/25 10:00 01/05/25 09:27 150 MG Enteral Nutritional Formula 1,000 ml 60ML/HR GT 01/04/25 12:15 01/04/25 13:31 1,000 ML Vancomycin HCl 200 ml @ 200 mls/hr Q8H IV 01/05/25 12:00 Laboratory Results Laboratory Tests 01/05/25 05:14 Chemistry Test 01/05/25 05:14 Albumin 3.6 g/dL (3.2-4.8) Calcium Level 8.7 mg/dL (8.7-10.4) Total Protein 6.2 g/dL (5.7-8.2) Cardiac Markers Test 01/05/25 05:14 B-Type Natriuretic Peptide 92.22 pg/mL (0-100) LFT Test 01/05/25 05:14 Alanine Aminotransferase (ALT) 57 U/L (7-40) H Alkaline Phosphatase 104 U/L (46-116) Aspartate Amino Transferase (AST) 34 U/L (13-40) Total Bilirubin 0.6 mg/dL (0.2-1.0) Urinalysis Test 01/03/25 14:25 Urine Color Light yellow (Yellow) Urine Clarity Clear (Clear) Urine pH 7.5 (5.0-9.0) Urine Specific [place] 1.010 (1.001-1.035) Urine Protein Negative (Negative) Urine Ketones Negative (Negative) Urine Blood 1+ /uL (Negative) H Urine Nitrite Negative (Negative) Urine Bilirubin Negative (Negative) Urine Urobilinogen Normal mg/dL (Negative) Urine Leukocyte Esterase Negative /uL (Negative) Urine Glucose Normal mg/dL (Normal) Microbiology Microbiology Date/Time Source Procedure Growth Status 01/04/25 00:10 Nose MRSA Screen - Final Complete 01/03/25 20:12 Blood Blood Culture - Preliminary NO GROWTH AFTER 24 HOURS OF INCUBATION. Resulted 01/03/25 14:25 Voided Urine Urine Culture - Final Complete Labs and/or images reviewed: Labs reviewed by me, Image(s) reviewed by me Assessment/Plan Assessment/Plan Impression: -acute on chronic hypoxic respiratory failure -heart tracheostomy -chronic congestive heart failure -seizure disorder -traumatic brain injury with left craniotomy Quadriplegia status -history of [employer] shunt -LFTs -sepsis Plan: -continue antibiotic therapy -infectious disease consultation -O2 supplementation. Patient currently 2 L/min with 6 L blow-by trach collar -continue antiepileptics -continue tube feedings -labs in a.m. -social service consultation discharge planning in [facility] given recurrent hospital admissions Total time spent with patient discussing and formulating plan of care: 35 minutes. This medical document was created using an electronic medical record system with [employer] dictation system. Although this document has been carefully reviewed, there may still be some phonetic and typographical errors. These areas are purely typographical due to imperfections of the software programs, and do not reflect any compromise in the patient's medical care. Plan discussed with: Patient, Other (RN) My Orders Orders - INGE STEWART NP Procedure Category Date Status Time * Fleecer CONS 01/05/25 Verified Consult Basic Metabolic Panel LAB 01/06/25 Verified 04:00 Complete Blood Count LAB 01/06/25 Verified 04:00 Date of Service: Jan 05, 2025 Billing Provider: INGE STEWART NP Common Visit Codes: [id number] INP/OBS CARE(HIGH) INGE STEWART NP Jan 05, 2025 12:23
--- NOTE | 2025-01-05 12:25 | DVHINCON2 ---
Date of service: Jan 02, 2025 Referring Physician kasey gray Reason for Consultation pneumonia trache History of Present Illness HPI The patient is a 49-year-old gentleman with history of traumatic brain injury and chronic tracheostomy known to our service from previous admissions. Patient presented with fever and seizure-like activity. Reported increasing mucus production. The patient came into the ER where he was noted to have increasing oxygen requirements. Chest x-ray was obtained: Bilateral lower airspace disease. Home Meds Active Scripts Fluconazole (Fluconazole) 200 Mg Tab, 1 TAB PO DAILY for 3 Days, #3 TAB Prov:KHAIFLAKO RESIDENT 12/09/24 Fluconazole (Fluconazole) 200 Mg Tab, 1 TAB PO DAILY for 3 Days, #3 TAB Prov:FLAKO WOODSON RESIDENT 12/09/24 Reported Medications Levetiracetam (Keppra) 1,000 Mg Tab, 10 LIQ PO BID, #60 TAB 5 Refills 11/14/24 Amino Acids-Protein Hydrolysat (PRO-STAT) Liq, 30 ML OR DAILY, LIQ 11/14/24 Zinc Sulfate (Zinc Sulfate) 220 Mg Cap, 50 MG GT DAILY for 30 Days, MG 11/14/24 Potassium Chloride (POTASSIUM CHLORIDE CR) 10 Meq Tb, 20 MEQ GT DAILY, TAB 11/14/24 Multiple Vitamin (Multivitamins) Tab, 1 TAB GT DAILY, #30 TAB 2 Refills 11/14/24 Lorazepam (ATIVAN TABLET) 0.5 Mg Tb, 0.5 MG GT Q6HPRN PRN for SHORTNESS OF BREATH, TAB 11/14/24 Levalbuterol HCl (Levalbuterol) 1.25 Mg/0.5 Ml Neb, 1.25 MG IN Q4HP PRN for WHEEZING, INH 11/14/24 Lacosamide (Lacosamide) 150 Mg Tab, 150 MG GT BID, TAB 11/14/24 Loratadine (Claritin) 10 Mg Tab, 1 TAB PO DAILY for ALLERGIES, #30 TAB 5 Refills 11/14/24 Ipratropium-Albuterol (Ipratropium Donna/Albut) 1 Trace Trace, 1 TRACE IN Q6HPRN PRN for respiratory failure, ML 11/14/24 Glycopyrrolate (CUVPOSA) 1 Mg/5 Ml Trace, 1 MG PO Q8HPRN PRN for increased secretions, ML 11/14/24 Polyethylene Glycol 3350 (Miralax) 17 Gm Pow, 17 GM PO 3XW, POW 11/14/24 Chlorhexidine Gluconate (Mouth (CHLORHEXIDINE ORAL RINSE) 473 Ml So, 15 ML MT Q12HR, ML 11/14/24 Acetylcysteine (Acetylcysteine) 20 % Trace, 1 ML IN Q4HP PRN for thick secretions, ML 11/14/24 Diphenhydramine Hcl (Benadryl Allergy) 25 Mg Cap, 25 MG PO Q8HPRN PRN for allergies, CAP 11/14/24 Ascorbic Acid (VITAMIN C TABLET) 500 Mg Tb, 1 TAB GT BID, #60 TAB 11/14/24 Baclofen (Baclofen) 10 Mg Tab, 20 MG GT Q6HR for 30 Days, MG 11/14/24 Past Medical History Cardiac: No pertinent Hx Pulmonary: Pneumonia Central Nervous System: Seizure GI: No pertinent Hx Hemotology/Oncology: No pertinent Hx Hepatobiliary: No pertinent Hx Psychiatric: No pertinent Hx Musculoskeletal: No pertinent Hx Rheumotologic: No pertinent Hx Infectious Disease: No peritnent Hx ENT: No pertinent Hx Renal/: No pertinent Hx Endocrine: No pertinent Hx Dermatology: No pertinent Hx Past Surgical History: No pertinent Hx Family History: No pertinent Hx Patient Family History: Patient reports no known family medical history. Review of Systems Comments pt non verbal H&P Exam Vital Signs Vital Signs Date Time Temp Pulse Resp B/P (MAP) Pulse Ox O2 Delivery O2 Flow Rate FiO2 01/05/25 12:05 101 18 100 01/05/25 11:59 T-piece 6 28 Cool Aerosol 28 01/05/25 09:09 99.3 117/66 (83) 99.3 General Appeara: Thin Head Exam: Normal inspection Neck Exam: Normal inspection, Non-tender, Normal alignment Eye Exam: bilateral eye Normal inspection, bilateral eye PERRL Ear Exam: bilateral ear Auricle normal, bilateral ear Canal normal Nasal Exam: Normal inspection Mouth: Normal Inspection Pulmonary/Respiratory: Normal inspection, Normal breath sounds, Chest non- tender Cardiovascular/Chest: Normal inspection Peripheral Pulses: 4+ carotid (R), 4+ carotid (L) Abdominal Exam: Normal bowel sounds, Soft Labs/Xrays Labs Test 01/05/25 05:14 8/11/25 02:56 01/03/25 16:20 01/03/25 14:25 Range/Units White Blood Count 9.9 4.4-10.8 10^3/uL Red Blood Count 5.10 4.5-5.90 10^6/uL Hemoglobin 15.1 13.5-17.5 g/dL Hematocrit 44.3 41.0-53.0 % Mean Corpuscular Volume 86.9 80.0-100.0 fL Mean Corpuscular Hemoglobin 29.7 28.0-32.0 pg Mean Corpuscular Hemoglobin Concent 34.1 32.0-36.0 g/dL Red Cell Distribution Width 15.3 H 11.8-14.3 % Platelet Count 182 140-450 10^3/uL Mean Platelet Volume 9.4 6.9-10.8 fL Neutrophils (%) (Auto) 56.5 37.0-80.0 % Lymphocytes (%) (Auto) 27.1 10.0-50.0 % Monocytes (%) (Auto) 11.2 0.0-12.0 % Eosinophils (%) (Auto) 4.9 0.0-7.0 % Basophils (%) (Auto) 0.3 0.0-2.0 % Neutrophils # (Auto) 5.6 1.6-8.6 10 ^3/uL Lymphocytes # (Auto) 2.7 0.4-5.4 10 ^3/uL Monocytes # (Auto) 1.1 0-1.3 10 ^3/uL Eosinophils # (Auto) 0.5 0-0.8 10 ^3/uL Basophils # (Auto) 0 0-0.2 10 ^3/uL Nucleated Red Blood Cells 0.1 % Sodium Level 141 136-145 mmol/L Potassium Level 3.7 3.5-5.1 mmol/L Chloride Level 106 98-107 mmol/L Carbon Dioxide Level 24 20-31 mmol/L Anion Gap 11 5-15 Blood Urea Nitrogen 10 9-23 mg/dL Creatinine 0.52 L 0.700-1.30 mg/dL Glomerular Filtration Rate Calc 124 >90 mL/min BUN/Creatinine Ratio 19.2 10.0-20.0 Serum Glucose 120 H 74-106 mg/dL Calcium Level 8.7 8.7-10.4 mg/dL Total Bilirubin 0.6 0.2-1.0 mg/dL Aspartate Amino Transferase (AST) 34 13-40 U/L Alanine Aminotransferase (ALT) 57 H 7-40 U/L Alkaline Phosphatase 104 46-116 U/L B-Type Natriuretic Peptide 92.22 0-100 pg/mL Total Protein 6.2 5.7-8.2 g/dL Albumin 3.6 3.2-4.8 g/dL Vancomycin Level Trough 21.8 H 5-10 ug/mL Blood Gas Specimen Type Arterial Blood Gas Sample Site Right radial Blood Gas Patient Temperature 37.0 Arterial Blood Date Drawn [id number] Arterial Blood pH 7.428 7.350-7.450 Arterial Blood Partial Pressure CO2 31.5 L 35.0-48.0 mmHg Arterial Blood Partial Pressure O2 82.8 L 83.0-108.0 mmHg Arterial Blood HCO3 20.3 L 21.0-28.0 mmol/L Arterial Blood Oxygen Saturation 96.2 94.0-98.0 % Arterial Blood Base Excess -2.9 L -2.0-3.0 mmol/L Arterial Blood Oxyhemoglobin 94.1 94.0-98.0 % Arterial Blood Carboxyhemoglobin 1.7 H 0.5-1.5 % Arterial Blood Methemoglobin 0.5 0.0-1.5 % José Miguel Test Yes Blood Gas Total Hemoglobin 15.00 13.5-17.5 g/dL Blood Gas Liter Flow 6.00 Blood Gas Modality Cool aerosol FiO2 % 28.0 Urine Color Light yellow Yellow Urine Clarity Clear Clear Urine pH 7.5 5.0-9.0 Urine Specific [place] 1.010 1.001-1.035 Urine Protein Negative Negative Urine Ketones Negative Negative Urine Blood 1+ H Negative /uL Urine Nitrite Negative Negative Urine Bilirubin Negative Negative Urine Urobilinogen Normal Negative mg/dL Urine Leukocyte Esterase Negative Negative /uL Urine Glucose Normal Normal mg/dL Test 01/03/25 00:21 01/02/25 22:25 Range/Units Lactic Acid Level 7.0 *H 0.4-2.0 mmol/L Differential Total Cells Counted 100.0 100 Neutrophils % (Manual) 87 H 37.0-80.0 Band Neutrophils % (Manual) 0 Lymphocytes % (Manual) 7 L 10.0-50.0 Monocytes % (Manual) 6 0-12 Eosinophils % (Manual) 0 0-7 Basophils % (Manual) 0 0.0-2.0 Metamyelocytes % (manual) 0 Myelocytes % (Manual) 0 Promyelocytes % (Manual) 0 Blast Cells % (Manual) 0 Reactive Lymphocytes 0 Platelet Estimate Adequate Prothrombin Time 11.3 9.3-11.8 sec Prothrombin Time INR 1.07 0.9-1.15 Activated Partial Thromboplast Time 30.2 24.5-34.5 SEC Microbiology Date/Time Source Procedure Growth Status 01/04/25 00:10 Nose MRSA Screen - Final Complete 01/03/25 20:12 Blood Blood Culture - Preliminary NO GROWTH AFTER 24 HOURS OF INCUBATION. Resulted 01/03/25 14:25 Voided Urine Urine Culture - Final Complete Assessment/Plan Plan Acute hypoxemic respiratory failure Pneumonia Status post traumatic brain injury Status post tracheostomy Patient is seen and examined Currently 15 L of oxygen ABG Ph 7.428 pCO2 31 PO2 82 Chest x-ray shows infiltrates at the bases Management plan Obtain sputum culture Broad-spectrum antibiotics Albuterol Atrovent bronchodilators Trache care RT protocol Nutrition GI and DVT prophylaxis Plan discussed with: Patient SCOTT MCLEOD MD Jan 05, 2025 12:25
--- NOTE | 2025-01-05 12:26 | DVHPN2 ---
Progress Note - Dictate Date Seen: Jan 03, 2025 Has the PT tested + for MRSA If YES, has PT been informed?: No Medical Necessity Reason Pt with a Central, PICC or Fol: No vital signs Vital Sign Date Time Temp Pulse Resp B/P (MAP) Pulse Ox O2 Delivery O2 Flow Rate FiO2 01/05/25 12:05 101 18 100 01/05/25 11:59 T-piece 6 28 Cool Aerosol 28 01/05/25 09:09 99.3 117/66 (83) 99.3 Total Intake and Output 01/04/25 01/04/25 01/05/25 15:00 23:00 07:00 Intake Total 400 ml 0 ml 0 ml Output Total 650 ml 875 ml Balance 400 ml -650 ml -875 ml medications Current Medications Medications Dose Ordered Sig/Ata Route Start Time Stop Time Status Last Admin Dose Admin Cefepime HCl 50 ml @ 12.5 mls/hr Q8HR IV 01/02/25 22:00 01/05/25 06:02 12.5 MLS/HR Vancomycin HCl 0 ml @ 0 mls/hr UD IV 01/02/25 23:30 Baclofen 10 mg Q8HR GT 01/03/25 06:00 01/05/25 06:02 10 MG Diphenhydramine HCl 25 mg Q4HP PRN IV 01/02/25 23:30 Levetiracetam 100 ml @ 400 mls/hr BID IV 01/03/25 10:00 01/05/25 09:27 400 MLS/HR Lorazepam 1 mg Q2HP PRN IV 01/02/25 23:30 Ibuprofen 600 mg Q6HP PRN GT 01/02/25 23:30 Levalbuterol HCl 1.25 mg Q6HR NEB 01/03/25 00:00 01/05/25 11:59 1.25 MG Ascorbic Acid 500 mg DAILY GT 01/03/25 10:00 01/05/25 09:27 500 MG Sodium Chloride 10 ml Q8HR IV 01/03/25 06:00 01/05/25 06:02 10 ML Acetaminophen/ Hydrocodone Bitart 1 tab Q4HP PRN PO 01/02/25 23:30 Ondansetron HCl 4 mg Q4HP PRN IV 01/02/25 23:30 Nitroglycerin 0.4 mg Q5MINP PRN SL 01/02/25 23:30 Morphine Sulfate 2 mg Q30M PRN IV 01/02/25 23:30 Lacosamide 150 mg BID GT 01/04/25 10:00 01/05/25 09:27 150 MG Enteral Nutritional Formula 1,000 ml 60ML/HR GT 01/04/25 12:15 01/04/25 13:31 1,000 ML Vancomycin HCl 200 ml @ 200 mls/hr Q8H IV 01/05/25 12:00 laboratory and microbiology Laboratory Tests 01/05/25 05:14 Test 01/05/25 05:14 Range/Units Serum Glucose 120 H 74-106 mg/dL Assessment/Plan Acute hypoxemic respiratory failure Pneumonia Status post traumatic brain injury Status post tracheostomy Patient is seen and examined events improving vs stable Chest x-ray shows infiltrates at the bases Management plan cont supportive care Broad-spectrum antibiotics de-escalate based on cx Albuterol Atrovent bronchodilators Trache care RT protocol Nutrition GI and DVT prophylaxis Dietary Evaluation Review Comments: 1) Initiate EN/TPN to provide at least 75% of estimated daily needs 2) If GI is preferred, consider Jevity 1.2 @ 70 mL/hr goal rate as tolerated. Flush with 150 mL Q6H. TF regimen will provide 2016 kcals, 93g Pro, and 1956 mL free H2O (including TF flushes) per 24 hrs. Goal rate will provide ~94% of estimated energy needs and ~99% of estimated protein needs 3) Follow-up with ST to assess swallow function 4) Follow-up with cardiology, pulmonology, and neurology 5) Continue to monitor I&O, labs, and skin integrity Expected Outcomes/Goals: 1) nutrition support to provide at least 75% of estimated daily needs 2) labs and wound to improve 3) f/u in 2-3 days Plan discussed with: Patient SCOTT MCLEOD MD Jan 05, 2025 12:26
[2025-01-05] MEDS: VANCOMYCIN 1GM/250ML KIT 250 ML IV SCH (14:15)
[2025-01-06] VITALS (20 sets, daily range): BP systolic 102–136; BP diastolic 62–77; PULSE 84–105; RESP 18–28; TEMP 97.9–98.7; O2SAT 93–100
[2025-01-06 07:06] LABS: Hematocrit 43.6 % (41.0-53.0); Hemoglobin 14.9 g/dL (13.5-17.5); Mean Corpuscular Hemoglobin 29.2 pg (28.0-32.0); Mean Corpuscular Volume 85.6 fL (80.0-100.0); Nucleated Red Blood Cells % 0.1 %
[2025-01-06 07:12] LABS: Chloride 104 mmol/L (98-107); Potassium 3.7 mmol/L (3.5-5.1); Sodium 142 mmol/L (136-145)
[2025-01-06 07:13] LABS: Anion Gap 10 (5-15); Calcium 9.0 mg/dL (8.7-10.4); Carbon Dioxide 28 mmol/L (20-31)
[2025-01-06 07:18] LABS: BUN/Creatinine Ratio 12.1 (10.0-20.0); Glucose 100 mg/dL (74-106)
[2025-01-06 07:19] LABS: Blood Urea Nitrogen 7 mg/dL (9-23)
[2025-01-06] MEDS ORDERED: POLYETHYLENE GLYCOL 17 GM PWDR PO PRN (09:15)
--- NOTE | 2025-01-06 09:22 | DVHPN2 ---
Subjective Patient encephalopathic Reviewed: Care Plan, H&P, Labs, Medications, Previous Orders, Radiology Changes from previous H/P or p: No Changes General: Per HPI Objective Vitals Vital Signs Date Time Temp Pulse Resp B/P (MAP) Pulse Ox O2 Delivery O2 Flow Rate FiO2 01/06/25 08:46 98.3 97 19 126/62 (83) 93 98.3 01/06/25 08:00 T-piece 5 N/A Intake/Output Intake and Output 01/06/25 07:00 Intake Total 1070 ml Output Total 1250 ml Balance -180 ml Intake Oral 0 ml IV Total 350 ml Tube Feeding 720 ml Output Urine Total 1250 ml # Bowel Movements 1 General Appearance: Other (Noncommunicating) HEENT: Other (Traumatic status post craniotomy) Lungs: Other (Few crackles bibasilar areas) Cardiovascular: Regular rate Abdomen: Soft Genitourinary: No Apparent Abnormalities (El catheter) Musculoskeletal: Other (Unable to assess) Skin: Dry, Intact, Other (Stage I decubitus in the gluteal areas) Psych/Mental Status: Other (Unable to assess) Medications Current Medications Medications Dose Ordered Sig/Ata Route Start Time Stop Time Status Last Admin Dose Admin Cefepime HCl 50 ml @ 12.5 mls/hr Q8HR IV 01/02/25 22:00 01/06/25 07:30 12.5 MLS/HR Vancomycin HCl 0 ml @ 0 mls/hr UD IV 01/02/25 23:30 Baclofen 10 mg Q8HR GT 01/03/25 06:00 01/06/25 05:30 10 MG Diphenhydramine HCl 25 mg Q4HP PRN IV 01/02/25 23:30 Levetiracetam 100 ml @ 400 mls/hr BID IV 01/03/25 10:00 01/06/25 08:44 400 MLS/HR Lorazepam 1 mg Q2HP PRN IV 01/02/25 23:30 Ibuprofen 600 mg Q6HP PRN GT 01/02/25 23:30 Levalbuterol HCl 1.25 mg Q6HR NEB 01/03/25 00:00 01/06/25 06:45 1.25 MG Ascorbic Acid 500 mg DAILY GT 01/03/25 10:00 01/06/25 08:43 500 MG Sodium Chloride 10 ml Q8HR IV 01/03/25 06:00 01/06/25 07:29 10 ML Acetaminophen/ Hydrocodone Bitart 1 tab Q4HP PRN PO 01/02/25 23:30 Ondansetron HCl 4 mg Q4HP PRN IV 01/02/25 23:30 Nitroglycerin 0.4 mg Q5MINP PRN SL 01/02/25 23:30 Morphine Sulfate 2 mg Q30M PRN IV 01/02/25 23:30 Enteral Nutritional Formula 1,000 ml 60ML/HR GT 01/04/25 12:15 01/05/25 22:00 1,000 ML Vancomycin HCl 250 ml @ 250 mls/hr Q8H IV 01/05/25 13:15 01/06/25 05:20 250 MLS/HR Patient Own Medication 15 ml BID GT 01/06/25 10:00 Polyethylene Glycol 17 gm DAILYPRN PRN PO 01/06/25 09:15 UNV Laboratory Results Laboratory Tests 01/06/25 05:14 Chemistry Test 01/06/25 05:14 Calcium Level 9.0 mg/dL (8.7-10.4) Urinalysis Test 01/03/25 14:25 Urine Color Light yellow (Yellow) Urine Clarity Clear (Clear) Urine pH 7.5 (5.0-9.0) Urine Specific [place] 1.010 (1.001-1.035) Urine Protein Negative (Negative) Urine Ketones Negative (Negative) Urine Blood 1+ /uL (Negative) H Urine Nitrite Negative (Negative) Urine Bilirubin Negative (Negative) Urine Urobilinogen Normal mg/dL (Negative) Urine Leukocyte Esterase Negative /uL (Negative) Urine Glucose Normal mg/dL (Normal) Microbiology Microbiology Date/Time Source Procedure Growth Status 01/04/25 15:20 Sputum Gram Stain - Final Resulted 01/04/25 15:20 Sputum Respiratory Culture - Preliminary Resulted 01/04/25 00:10 Nose MRSA Screen - Final Complete 01/03/25 20:12 Blood Blood Culture - Preliminary NO GROWTH AFTER 48 HOURS OF INCUBATION. Resulted 01/03/25 14:25 Voided Urine Urine Culture - Final Complete Labs and/or images reviewed: Labs reviewed by me, Image(s) reviewed by me Assessment/Plan Assessment/Plan Impression: -acute on chronic hypoxic respiratory failure -heart tracheostomy -chronic congestive heart failure -seizure disorder -traumatic brain injury with left craniotomy Quadriplegia status -history of [employer] shunt -LFTs -sepsis Plan: Events: Awaiting for ID consult. Patient currently has a negative growth from every culture including sputum, blood, urine. Patient afebrile. White blood cell count normal with no left shift -obtain medical records from previous hospitals -bowel regimen -continue antibiotic therapy -infectious disease consultation -O2 supplementation. Patient currently 2 L/min with 6 L blow-by trach collar -continue antiepileptics -continue tube feedings -labs in a.m. -social service consultation discharge planning in [facility] given recurrent hospital admissions Total time spent with patient discussing and formulating plan of care: 35 minutes. This medical document was created using an electronic medical record system with [employer] dictation system. Although this document has been carefully reviewed, there may still be some phonetic and typographical errors. These areas are purely typographical due to imperfections of the software programs, and do not reflect any compromise in the patient's medical care. Plan discussed with: Patient, Other (RN) My Orders Orders - INGE STEWART NP Procedure Category Date Status Time * [place] CONS 01/05/25 Transmitted Consult Polyethylene Glycol PHA 01/06/25 Logged 17g Powder (Miralax 09:15 Polyethylene Glycol PHA 01/06/25 Logged 17g Powder (Miralax 09:15 Obtain Mr From Other ORDERS 01/06/25 Transmitted Facility 09:13 Basic Metabolic Panel LAB 01/07/25 Verified 05:00 Basic Metabolic Panel LAB 01/08/25 Verified 05:00 Complete Blood Count LAB 01/07/25 Verified 05:00 Complete Blood Count LAB 01/08/25 Verified 05:00 Date of Service: Jan 06, 2025 Billing Provider: INGE STEWART NP Common Visit Codes: [id number] INP/OBS CARE(HIGH) INGE STEWART NP Jan 06, 2025 09:22
[2025-01-06] MEDS: LACOSAMIDE 10 MG/ML GT SCH (10:00)
--- NOTE | 2025-01-06 16:45 | MEDREC ---
[facility] ASP Intervention Section I [facility] ASP Intervention: Review courses of therapy (MRSA negative, please consider D/C vancomycin ) [facility] Jan 06, 2025 16:45
[2025-01-06] MEDS: POLYETHYLENE GLYCOL 17 GM PWDR PO ONE (16:55)
[2025-01-07] VITALS (16 sets, daily range): BP systolic 110–136; BP diastolic 61–90; PULSE 80–107; RESP 16–23; TEMP 97.3–99.3; O2SAT 95–100
[2025-01-07 07:21] LABS: Hematocrit 43.4 % (41.0-53.0); Hemoglobin 15.0 g/dL (13.5-17.5); Mean Corpuscular Hemoglobin 29.6 pg (28.0-32.0); Mean Corpuscular Volume 85.9 fL (80.0-100.0); Nucleated Red Blood Cells % 0.0 %
[2025-01-07 07:30] LABS: Chloride 104 mmol/L (98-107); Potassium 3.9 mmol/L (3.5-5.1); Sodium 141 mmol/L (136-145)
[2025-01-07 07:31] LABS: Anion Gap 8 (5-15); Calcium 9.0 mg/dL (8.7-10.4); Carbon Dioxide 29 mmol/L (20-31)
[2025-01-07 07:36] LABS: BUN/Creatinine Ratio 13.6 (10.0-20.0)
[2025-01-07 07:38] LABS: Blood Urea Nitrogen 8 mg/dL (9-23); Glucose 110 mg/dL (74-106)
[2025-01-07] MEDS: VANCOMYCIN 750MG KIT 100 ML IV SCH (11:00)
--- NOTE | 2025-01-07 14:39 | DVHPN2 ---
Subjective Patient encephalopathic Reviewed: Care Plan, H&P, Labs, Medications, Previous Orders, Radiology Changes from previous H/P or p: No Changes General: Per HPI Objective Vitals Vital Signs Date Time Temp Pulse Resp B/P (MAP) Pulse Ox O2 Delivery O2 Flow Rate FiO2 01/07/25 11:13 98 16 99 01/07/25 10:00 Trach Collar 01/07/25 08:30 98.1 124/79 (94) 98.1 01/07/25 08:00 5 N/A Intake/Output Intake and Output 01/07/25 06:59 Intake Total 1020 ml Output Total 1500 ml Balance -480 ml Intake Oral 0 ml IV Total 300 ml Tube Feeding 720 ml Output Urine Total 1500 ml # Bowel Movements 1 General Appearance: Other (Noncommunicating) HEENT: Other (Traumatic status post craniotomy) Lungs: Other (Few crackles bibasilar areas) Cardiovascular: Regular rate Abdomen: Soft Genitourinary: No Apparent Abnormalities (El catheter) Musculoskeletal: Other (Unable to assess) Skin: Dry, Intact, Other (Stage I decubitus in the gluteal areas) Psych/Mental Status: Other (Unable to assess) Medications Current Medications Medications Dose Ordered Sig/Ata Route Start Time Stop Time Status Last Admin Dose Admin Cefepime HCl 50 ml @ 12.5 mls/hr Q8HR IV 01/02/25 22:00 01/07/25 05:19 12.5 MLS/HR Vancomycin HCl 0 ml @ 0 mls/hr UD IV 01/02/25 23:30 Baclofen 10 mg Q8HR GT 01/03/25 06:00 01/07/25 05:21 10 MG Diphenhydramine HCl 25 mg Q4HP PRN IV 01/02/25 23:30 Levetiracetam 100 ml @ 400 mls/hr BID IV 01/03/25 10:00 01/07/25 10:00 400 MLS/HR Lorazepam 1 mg Q2HP PRN IV 01/02/25 23:30 Ibuprofen 600 mg Q6HP PRN GT 01/02/25 23:30 Levalbuterol HCl 1.25 mg Q6HR NEB 01/03/25 00:00 01/07/25 11:03 1.25 MG Ascorbic Acid 500 mg DAILY GT 01/03/25 10:00 01/07/25 10:00 500 MG Sodium Chloride 10 ml Q8HR IV 01/03/25 06:00 01/07/25 05:33 10 ML Acetaminophen/ Hydrocodone Bitart 1 tab Q4HP PRN PO 01/02/25 23:30 Ondansetron HCl 4 mg Q4HP PRN IV 01/02/25 23:30 Nitroglycerin 0.4 mg Q5MINP PRN SL 01/02/25 23:30 Morphine Sulfate 2 mg Q30M PRN IV 01/02/25 23:30 Enteral Nutritional Formula 1,000 ml 60ML/HR GT 01/04/25 12:15 01/06/25 21:03 1,000 ML Patient Own Medication 15 ml BID GT 01/06/25 10:00 Polyethylene Glycol 17 gm DAILYPRN PRN PO 01/06/25 09:15 Vancomycin HCl 100 ml @ 100 mls/hr Q8H IV 01/07/25 11:00 01/07/25 11:00 100 MLS/HR Laboratory Results Laboratory Tests 01/07/25 07:00 Chemistry Test 01/07/25 07:00 Calcium Level 9.0 mg/dL (8.7-10.4) Urinalysis Test 01/03/25 14:25 Urine Color Light yellow (Yellow) Urine Clarity Clear (Clear) Urine pH 7.5 (5.0-9.0) Urine Specific [place] 1.010 (1.001-1.035) Urine Protein Negative (Negative) Urine Ketones Negative (Negative) Urine Blood 1+ /uL (Negative) H Urine Nitrite Negative (Negative) Urine Bilirubin Negative (Negative) Urine Urobilinogen Normal mg/dL (Negative) Urine Leukocyte Esterase Negative /uL (Negative) Urine Glucose Normal mg/dL (Normal) Microbiology Microbiology Date/Time Source Procedure Growth Status 01/04/25 15:20 Sputum Gram Stain - Final Resulted 01/04/25 15:20 Sputum Respiratory Culture - Preliminary Resulted 01/04/25 00:10 Nose MRSA Screen - Final Complete 01/03/25 20:12 Blood Blood Culture - Preliminary NO GROWTH AFTER 72 HOURS OF INCUBATION. 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 placed on RA. No secretions noted. Awaiting for ID recommendations. DC vancomycin based on cultures. -obtain medical records from previous hospitals -bowel regimen -continue antibiotic therapy -infectious disease consultation -O2 supplementation. Patient currently 2 L/min with 6 L blow-by trach collar -continue antiepileptics -continue tube feedings -labs in a.m. -social service consultation [facility] given recurrent hospital admissions Total time spent with patient discussing and formulating plan of care: 35 minutes. This medical document was created using an electronic medical record system with [employer] dictation system. Although this document has been carefully reviewed, there may still be some phonetic and typographical errors. These areas are purely typographical due to imperfections of the software programs, and do not reflect any compromise in the patient's medical care. Plan discussed with: Patient, Other (RN) Date of Service: Jan 07, 2025 Billing Provider: INGE STEWART NP Common Visit Codes: [id number] INP/OBS CARE(HIGH) INGE STEWART NP Jan 07, 2025 14:39
[2025-01-07] MEDS: LACOSAMIDE 50 MG TAB GT SCH (21:43)
[2025-01-08] VITALS: PULSE 99; RESP 18; O2SAT 98
[2025-01-08 00:08] VITALS: PULSE 99; RESP 18; O2SAT 99
[2025-01-08 01:00] VITALS: BP 119/78; PULSE 89; RESP 23; TEMP 99; O2SAT 98
--- NOTE | 2025-01-08 12:36 | DVHDS2 ---
Discharge Summary Date of Admission Jan 02, 2025 at 23:25 Date of Discharge: Jan 08, 2025 Admitting Diagnosis Sepsis Labs/Diagnostic Data: Laboratory Results Test 01/07/25 07:00 01/06/25 11:18 01/05/25 05:14 01/03/25 16:20 White Blood Count 9.0 10^3/uL (4.4-10.8) Red Blood Count 5.06 10^6/uL (4.5-5.90) Hemoglobin 15.0 g/dL (13.5-17.5) Hematocrit 43.4 % (41.0-53.0) Mean Corpuscular Volume 85.9 fL (80.0-100.0) Mean Corpuscular Hemoglobin 29.6 pg (28.0-32.0) Mean Corpuscular Hemoglobin Concent 34.4 g/dL (32.0-36.0) Red Cell Distribution Width 15.3 % (11.8-14.3) Platelet Count 211 10^3/uL (140-450) Mean Platelet Volume 8.8 fL (6.9-10.8) Neutrophils (%) (Auto) 56.2 % (37.0-80.0) Lymphocytes (%) (Auto) 26.2 % (10.0-50.0) Monocytes (%) (Auto) 11.9 % (0.0-12.0) Eosinophils (%) (Auto) 5.1 % (0.0-7.0) Basophils (%) (Auto) 0.6 % (0.0-2.0) Neutrophils # (Auto) 5.1 10 ^3/uL (1.6-8.6) Lymphocytes # (Auto) 2.4 10 ^3/uL (0.4-5.4) Monocytes # (Auto) 1.1 10 ^3/uL (0-1.3) Eosinophils # (Auto) 0.5 10 ^3/uL (0-0.8) Basophils # (Auto) 0.1 10 ^3/uL (0-0.2) Nucleated Red Blood Cells 0.0 % Sodium Level 141 mmol/L (136-145) Potassium Level 3.9 mmol/L (3.5-5.1) Chloride Level 104 mmol/L (98-107) Carbon Dioxide Level 29 mmol/L (20-31) Anion Gap 8 (5-15) Blood Urea Nitrogen 8 mg/dL (9-23) Creatinine 0.59 mg/dL (0.700-1.30) Glomerular Filtration Rate Calc 119 mL/min (>90) BUN/Creatinine Ratio 13.6 (10.0-20.0) Serum Glucose 110 mg/dL (74-106) Calcium Level 9.0 mg/dL (8.7-10.4) Random Vancomycin Level 6.1 ug/mL (5-10) Vancomycin Level Trough 24.1 ug/mL (5-10) Total Bilirubin 0.6 mg/dL (0.2-1.0) Aspartate Amino Transferase (AST) 34 U/L (13-40) Alanine Aminotransferase (ALT) 57 U/L (7-40) Alkaline Phosphatase 104 U/L (46-116) B-Type Natriuretic Peptide 92.22 pg/mL (0-100) Total Protein 6.2 g/dL (5.7-8.2) Albumin 3.6 g/dL (3.2-4.8) Blood Gas Specimen Type Arterial Blood Gas Sample Site Right radial Blood Gas Patient Temperature 37.0 Arterial Blood Date Drawn [id number] Arterial Blood pH 7.428 (7.350-7.450) Arterial Blood Partial Pressure CO2 31.5 mmHg (35.0-48.0) Arterial Blood Partial Pressure O2 82.8 mmHg (83.0-108.0) Arterial Blood HCO3 20.3 mmol/L (21.0-28.0) Arterial Blood Oxygen Saturation 96.2 % (94.0-98.0) Arterial Blood Base Excess -2.9 mmol/L (-2.0-3.0) Arterial Blood Oxyhemoglobin 94.1 % (94.0-98.0) Arterial Blood Carboxyhemoglobin 1.7 % (0.5-1.5) Arterial Blood Methemoglobin 0.5 % (0.0-1.5) José Miguel Test Yes Blood Gas Total Hemoglobin 15.00 g/dL (13.5-17.5) Blood Gas Liter Flow 6.00 Blood Gas Modality Cool aerosol FiO2 % 28.0 Test 01/03/25 14:25 01/03/25 00:21 01/02/25 22:25 Urine Color Light yellow (Yellow) Urine Clarity Clear (Clear) Urine pH 7.5 (5.0-9.0) Urine Specific [place] 1.010 (1.001-1.035) Urine Protein Negative (Negative) Urine Ketones Negative (Negative) Urine Blood 1+ /uL (Negative) Urine Nitrite Negative (Negative) Urine Bilirubin Negative (Negative) Urine Urobilinogen Normal mg/dL (Negative) Urine Leukocyte Esterase Negative /uL (Negative) Urine Glucose Normal mg/dL (Normal) Lactic Acid Level 7.0 mmol/L (0.4-2.0) Differential Total Cells Counted 100.0 (100) Neutrophils % (Manual) 87 (37.0-80.0) Band Neutrophils % (Manual) 0 Lymphocytes % (Manual) 7 (10.0-50.0) Monocytes % (Manual) 6 (0-12) Eosinophils % (Manual) 0 (0-7) Basophils % (Manual) 0 (0.0-2.0) Metamyelocytes % (manual) 0 Myelocytes % (Manual) 0 Promyelocytes % (Manual) 0 Blast Cells % (Manual) 0 Reactive Lymphocytes 0 Platelet Estimate Adequate Prothrombin Time 11.3 sec (9.3-11.8) Prothrombin Time INR 1.07 (0.9-1.15) Activated Partial Thromboplast Time 30.2 SEC (24.5-34.5) Other Laboratory Tests 01/07/25 07:00 Brief Hx & Hospital Course: History of Present Illness The patient is a 49-year-old male nonverbal, bed-bound with past medical history of traumatic brain injury and seizures who presented to [facility] for evaluation of fever. Patient was discharged from [facility] yesterday, here today after mother called 911 for total body shaking purple fingernails, patient's oxygen saturation was 93-94 % which is his baseline, heart rate in the 150s. Patient was seen and evaluated in the ED, laboratory data shows WBC 27.8, platelets 183, sodium 141, potassium 3.7, BUN 11, creatinine 0.59, GFR 119, glucose 119, calcium 8.4, lactic acid 3.9, total bilirubin 1.1, AST 80, ALT 114, alkaline phos 128, blood pressure 141/80, heart rate 148 trending down to 112, temperature 102.4 F trending down to 99.8 F, O2 saturation 99% on tracheostomy. Chest x-ray revealing low inspiratory volume, diffuse bilateral airspace disease, slightly increased compared with the most recent prior study. Patient was started on IV antibiotic regimen vancomycin, please see medication orders section in the computer. On my assessment, mother at bedside, no diaphoresis, no diarrhea, no vomiting, no chills at this moment. Patient was admitted for further evaluation and medical management. Course of hospitalization: Patient was placed on empiric antibiotic therapy with cefepime and vancomycin. Patient's white blood cell count improved. Patient without fevers. Patient was placed on trach collar blow-by, which was transitioned to room air with humidification. ID consultation was placed. Pulmonology consultation was placed. Orders were placed to obtain previous medical records from patient's other hospitals that he has visited. Patient's mother decided to take the patient against medical advice earlier this a.m.. Condition at Discharge: Undetermined Final Diagnosis/Problems List -acute on chronic hypoxic respiratory failure -heart tracheostomy -chronic congestive heart failure -seizure disorder -traumatic brain injury with left craniotomy Quadriplegia status -history of [employer]NA[employer]ER shunt -LFTs -sepsis Discharge Disposition: AMA Discharge Instruct/Medications Scheduled Amino Acids-Protein Hydrolysat (Pro-Stat), 30 ML OR DAILY, (Reported) Ascorbic Acid (Vitamin C Tablet), 1 TAB GT BID, (Reported) Baclofen (Baclofen), 20 MG GT Q6HR, (Reported) Chlorhexidine Gluconate (Mouth (Chlorhexidine Oral Rinse), 15 ML MT Q12HR, (Reported) Fluconazole (Fluconazole), 1 TAB PO DAILY Fluconazole (Fluconazole), 1 TAB PO DAILY Lacosamide (Lacosamide), 150 MG GT BID, (Reported) Levetiracetam (Keppra), 10 LIQ PO BID, (Reported) Loratadine (Claritin), 1 TAB PO DAILY, (Reported) Multiple Vitamin (Multivitamins), 1 TAB GT DAILY, (Reported) Polyethylene Glycol 3350 (Miralax), 17 GM PO 3XW, (Reported) Potassium Chloride (Potassium Chloride Cr), 20 MEQ GT DAILY, (Reported) Zinc Sulfate (Zinc Sulfate), 50 MG GT DAILY, (Reported) Scheduled PRN Acetylcysteine (Acetylcysteine), 1 ML IN Q4HP PRN for thick secretions, (Reported) Diphenhydramine Hcl (Benadryl Allergy), 25 MG PO Q8HPRN PRN for allergies, (Reported) Glycopyrrolate (Cuvposa), 1 MG PO Q8HPRN PRN for increased secretions, (Reported) Ipratropium-Albuterol (Ipratropium [place]/Albut), 1 TRACE IN Q6HPRN PRN for respiratory failure, (Reported) Levalbuterol HCl (Levalbuterol), 1.25 MG IN Q4HP PRN for WHEEZING, (Reported) Lorazepam (Ativan Tablet), 0.5 MG GT Q6HPRN PRN for SHORTNESS OF BREATH, (Reported) 36 Discharge Statement: "Patient was advised to return to the ER or call 911 if any headaches, dizziness, shortness of breath, chest pain, abdominal pain, bleeding, fevers, or worsening of medical condition. Patient was counseled about treatment plan, medications, possible side effects, patientverbalized understanding. All questions were answered to the best of my ability. This discharge took greater then 30 minutes in planning, reviewing documentation, counseling the patient, and discussing with other team members." ASSESSMENT ASSESSMENT Assessment Date of Service: Jan 08, 2025 Billing Provider: INGE STEWART NP Common Visit Codes: 57484-[id number]/OBS DISCH DAY <30MIN INGE STEWART NP Jan 08, 2025 12:36
== END 2025-01-08 01:14 | disposition left against medical advice (07) | DRG 871 ==
LOC: ER 21:15 → EDUNIT# 21:15 → EDBD 21:15 → OVERFLOW 23:25 → TELE-CENTR 01-03 16:57
PROVIDERS: ADMIT Nurse Practitioner Acute Care; ATTEND Nurse Practitioner Acute Care
DX: A41.50 Gram-negative sepsis, unspecified (principal); G82.50 Quadriplegia, unspecified; J15.69 Pneumonia due to other Gram-negative bacteria; J96.21 Acute and chronic respiratory failure with hypoxia; J15.9 Unspecified bacterial pneumonia; G40.909 Epilepsy, unspecified, not intractable, without status epilepticus; I50.9 Heart failure, unspecified; R74.8 Abnormal levels of other serum enzymes; Z87.820 Personal history of traumatic brain injury; Z74.01 Bed confinement status; Z98.2 Presence of cerebrospinal fluid drainage device; Z88.0 Allergy status to penicillin; Z86.79 Personal history of other diseases of the circulatory system; Z79.899 Other long term (current) drug therapy; Z53.29 Procedure and treatment not carried out because of patient's decision for other reasons
CPT/HCPCS: 36415; 36600; 71045; 76705; 80048; 80053; 80202; 81003; 82565; 82805; 83605; 83880; 85007; 85025; 85027; 85610; 85730; 87040; 87070; 87077; 87081; 87086; 87186; 87205; 93005; 94640; 96365; 99291; G0378

== ENCOUNTER 2025-02-04 13:30 | Inpatient (IN) | payer MEDICARE, MEDICAID ==
[~2025-02-04] VITALS: Ht 177.8 cm; Wt 79.7 kg
--- NOTE | 2025-02-04 15:32 | ED.PDOC ---
History of Present Illness HPI Comments This is a 49 year old male BIBA and accompanied by mother presenting to the ED with chief complaint of g-tube concern. Mother reports patient's g-tube had blood present around the site along with redness noticed today. Mother relays that she called the patient's PCP Dr. Manzano and was advised to come to the ED for further evaluation. Mother denies any fever, chills, purulent drainage, or further symptoms at this time. Chief Complaint: Tube Replacement Time Seen by MD: 15:30 Reviewed Notes: Nurses Notes, Counselor Education Professor Notes, Medications, Allergies Allergies: Coded Allergies: Piperacillin (Verified Adverse Reaction, Intermediate, URTICARIA, 12/11/24) Tazobactam (Verified Adverse Reaction, Intermediate, URTICARIA, 12/11/24) Home Meds Active Scripts Fluconazole (Fluconazole) 200 Mg Tab, 1 TAB PO DAILY for 3 Days, #3 TAB Prov:FLAKO WOODSON RESIDENT 12/09/24 Fluconazole (Fluconazole) 200 Mg Tab, 1 TAB PO DAILY for 3 Days, #3 TAB Prov:FLAKO WOODSON RESIDENT 12/09/24 Reported Medications Levetiracetam (Keppra) 1,000 Mg Tab, 10 LIQ PO BID, #60 TAB 5 Refills 11/14/24 Amino Acids-Protein Hydrolysat (PRO-STAT) Liq, 30 ML OR DAILY, LIQ 11/14/24 Zinc Sulfate (Zinc Sulfate) 220 Mg Cap, 50 MG GT DAILY for 30 Days, MG 11/14/24 Potassium Chloride (POTASSIUM CHLORIDE CR) 10 Meq Tb, 20 MEQ GT DAILY, TAB 11/14/24 Multiple Vitamin (Multivitamins) Tab, 1 TAB GT DAILY, #30 TAB 2 Refills 11/14/24 Lorazepam (ATIVAN TABLET) 0.5 Mg Tb, 0.5 MG GT Q6HPRN PRN for SHORTNESS OF BREATH, TAB 11/14/24 Levalbuterol HCl (Levalbuterol) 1.25 Mg/0.5 Ml Neb, 1.25 MG IN Q4HP PRN for WHEEZING, INH 11/14/24 Lacosamide (Lacosamide) 150 Mg Tab, 150 MG GT BID, TAB 11/14/24 Loratadine (Claritin) 10 Mg Tab, 1 TAB PO DAILY for ALLERGIES, #30 TAB 5 Refills 11/14/24 Ipratropium-Albuterol (Ipratropium [place]/Albut) 1 Trace Trace, 1 TRACE IN Q6HPRN PRN for respiratory failure, ML 11/14/24 Glycopyrrolate (CUVPOSA) 1 Mg/5 Ml Trace, 1 MG PO Q8HPRN PRN for increased secretions, ML 11/14/24 Polyethylene Glycol 3350 (Miralax) 17 Gm Pow, 17 GM PO 3XW, POW 11/14/24 Chlorhexidine Gluconate (Mouth (CHLORHEXIDINE ORAL RINSE) 473 Ml So, 15 ML MT Q12HR, ML 11/14/24 Acetylcysteine (Acetylcysteine) 20 % Trace, 1 ML IN Q4HP PRN for thick secretions, ML 11/14/24 Diphenhydramine Hcl (Benadryl Allergy) 25 Mg Cap, 25 MG PO Q8HPRN PRN for allergies, CAP 11/14/24 Ascorbic Acid (VITAMIN C TABLET) 500 Mg Tb, 1 TAB GT BID, #60 TAB 11/14/24 Baclofen (Baclofen) 10 Mg Tab, 20 MG GT Q6HR for 30 Days, MG 11/14/24 Information Source: Relative (Mother) Mode of Arrival: EMS Severity: Moderate Timing: Hours Duration: Since onset Prehospital treatment: None Past Medical History PAST MEDICAL HISTORY: Seizures Surgical History: Denies all surgeries Family History Family History: Reviewed,noncontributory to illness Social History Smoker: Non-Smoker Alcohol: Denies ETOH Use Drugs: Denies Drug Use Lives In: Home Constitutional: denies: chills, diaphoresis, fatigue, fever, malaise, sweats, weakness, others EENTM: denies: blurred vision, double vision, ear bleeding, ear discharge, ear drainage, ear pain, ear ringing, eye pain, eye redness, hearing loss, mouth pain, mouth swelling, nasal discharge, nose bleeding, nose congestion, nose pain, photophobia, tearing, throat pain, throat swelling, voice changes, others Respiratory: denies: cough, hemoptysis, orthopnea, SOB at rest, shortness of breath, SOB with excertion, stridor, wheezing, others Cardiovascular: denies: chest pain, dizzy spells, diaphoresis, Dyspnea on exertion, edema, irregular heart beat, left arm pain, lightheadedness, palpitations, PND, syncope, others Gastrointestinal: denies: abdomen distended, abdominal pain, blood streaked bowels, constipated, diarrhea, dysphagia, difficulty swallowing, hematemesis, melena, nausea, poor appetite, poor fluid intake, rectal bleeding, rectal pain, vomiting, others Genitourinary: denies: burning, dysuria, flank pain, frequency, hematuria, incontinence, penile discharge, penile sore, pain, testicle pain, testicle swelling, urgency, others Neurological: denies: dizziness, fainting, headache, left sided numbness, left sided weakness, numbness, paresthesia, pre-existing deficit, right sided numbness, right sided weakness, seizure, speech problems, tingling, tremors, weakness, others Musculoskeletal: denies: back pain, gout, joint pain, joint swelling, muscle pain, muscle stiffness, neck pain, others Integumetry: reports: others (redness and bleeding to g-tube site); denies: bruises, change in color, change in hair/nails, dryness, laceration, lesions, lumps, rash, wounds Allergic/Immunocompromised: denies: Difficulty Healing, Frequent Infections, Hives, Itching, others Hematologic/Lymphatic: denies: anemia, blood clots, easy bleeding, easy brui sing, swollen glands, others Endocrine: denies: excessive hunger, excessive sweating, excessive thirst, ex cessive urination, flushing, intolerance to cold, intolerance to heat, unexplained weight gain, unexplained weight loss, others Psychiatric: denies: anxiety, bipolar disorder, depression, hopeless, panic disorder, schizophrenia, sleepless, suicidal, others All Other Systems: Reviewed and Negative Physical Exam General Appearance: Moderate Distress, Normal HEENT: Normal ENT Inspection, Pharynx Normal, TMs Normal Neck: Full Range of Motion, Non-Tender, Normal, Normal Inspection Respiratory: Chest Non-Tender, Lungs Clear, No Accessory Muscle Use, No Respiratory Distress, Normal Breath Sounds Cardiovascular: No Edema, No JVD, No Murmur, No Gallop, Normal Peripheral Pulses, Regular Rate/Rhythm Breast Exam: Deferred Gastrointestinal: No Organomegaly, Non Tender, No Pulsatile Mass, Normal Bowel Sounds, Soft, Other (Redness around the G-tube) Genitalia: Deferred Pelvic: Deferred Rectal: Deferred Extremities: Decreased range of motion (All extremities), No calf tenderness, No pedal edema Musculoskeletal : Apperance: Normal Neurologic: Alert, No Motor Deficits, No Sensory Deficits Cerebellar Function: NOT DONE Reflexes: NOT DONE Skin: Dry, Normal Color, Warm Peripheral Pulses: 3+ Radial (R), 3+ Radial (L) Lymphatic: No Adenopathy Was a procedure done? Was a procedure done?: No Differential Dx Considerations may include: Cellulitis Sepsis X-Ray, Labs, Meds, VS Vital Signs Date Time Temp Pulse Resp B/P (MAP) Pulse Ox O2 Delivery O2 Flow Rate FiO2 02/04/25 13:35 98.8 108 24 130/85 95 98.8 Family at bedside. Redness around the G-tube pain Has been bed ridden. Vitals stable. Trach collar. Sepsis protocol. Continue monitoring. Time of 1ST Reevaluation: 16:30 Reevaluation 1ST: Unchanged Patient Education/Counseling: Diagnosis, Treatment Family Education/Counseling: No Family Present SEPSIS Sepsis Screen Date sepsis recognized/suspect: Feb 04, 2025 Time Sepsis recognized/suspect: 1334 Recent Procedure: No On Antibiotic Therapy: No Respiratory Rate >20: No Heart Rate >90: No Temp<36 C (96.8 F) or >38.3 C: No SBP <90 or MAP <65 mmHG: No New Acute Mental Status Change: No Is the patient on CPAP, BIPAP,: No Physician Orders Complete Blood Count (02/04/25 15:29) Comprehensive Metabolic Panel (02/04/25 15:29) PTPTT (02/04/25 15:29) Urinalysis (02/04/25 15:29) Chest Portable (02/04/25 15:29) Accucheck (02/04/25 15:29) Blood Culture (02/04/25 15:29) Lactic Acid W/ Reflex Order (02/04/25 16:00) Lactic Acid W/ Reflex Order (02/04/25 18:00) Cefepime 1gm/50ml (Maxipime 1gm/50ml) (02/04/25 22:00) Notify Md If Map <65 Or Bp<90 (02/04/25 15:29) If Map<65 Start Vasopressor (02/04/25 15:29) Sepsis Reassesment After Fluid (02/04/25 16:29) Clindamycin 300mg Iv (Cleocin Iv) (02/04/25 15:30) Sodium Chloride 0.9% (02/04/25 15:30) Sodium Chloride 0.9% (02/04/25 15:30) Vital Signs Date Time Temp Pulse Resp B/P (MAP) Pulse Ox O2 Delivery O2 Flow Rate FiO2 02/04/25 13:35 98.8 108 24 130/85 95 98.8 Departure 1 Departure Time of Disposition: 15:49 Impression: Primary Impression: Cellulitis Qualified Codes: L03.90 - Cellulitis, unspecified Disposition: ADMITTED INPATIENT Admit to: Med Surg Condition: Guarded Critical Care Note Critical Care Time?: No Stability Stability form required: No Heart Score Heart Score: Heart Score Response (Comments) Value History N/A 0 EKG N/A 0 Age N/A 0 Risk Factors N/A 0 Troponin N/A 0 Total 0 I personally scribed for MIRYAM BUTLER MD ([email or web address]) on 02/04/25 at 15:32. Electronically submitted by Migue Carlisle ([email or web address]). MIRYAM BUTLER MD Feb 04, 2025 15:32
[2025-02-04 15:52] LABS: Hematocrit 47.0 % (41.0-53.0); Hemoglobin 16.1 g/dL (13.5-17.5); Mean Corpuscular Hemoglobin 29.1 pg (28.0-32.0); Mean Corpuscular Volume 85.0 fL (80.0-100.0); Nucleated Red Blood Cells % 0.1 %
[2025-02-04 16:09] LABS: INR 1.01 (0.9-1.15); Partial Thromboplastin Time 29.0 SEC (24.5-34.5); Prothrombin Time 10.7 sec (9.3-11.8)
[2025-02-04 16:19] LABS: Albumin 4.1 g/dL (3.2-4.8); Anion Gap 11 (5-15); BUN/Creatinine Ratio 14.1 (10.0-20.0); Bilirubin, Total 1.0 mg/dL (0.2-1.0); Calcium 9.2 mg/dL (8.7-10.4); Carbon Dioxide 23 mmol/L (20-31); Chloride 106 mmol/L (98-107); Glucose 86 mg/dL (74-106); Potassium 4.0 mmol/L (3.5-5.1); Sodium 140 mmol/L (136-145); Total Protein 7.4 g/dL (5.7-8.2)
[2025-02-04 16:20] LABS: Alanine Aminotransferase 126 U/L (7-40); Alkaline Phosphatase 135 U/L (46-116); Blood Urea Nitrogen 9 mg/dL (9-23)
[2025-02-04 16:33] VITALS: PULSE 97; RESP 16; O2SAT 93
[2025-02-04] MEDS: SODIUM CHLORIDE 0.9% 1,000 ML IV ONE ×2 (16:54→16:55)
[2025-02-04] MEDS: CLINDAMYCIN 300MG IV 50 ML IV ONE (16:55)
--- NOTE | 2025-02-04 17:00 | DVH ---
EXAM: XY CHEST PORTABLE HISTORY: sob COMPARISON: XY CHEST PORTABLE on DOS: 01/04/25, XY CHEST PORTABLE on DOS: 01/02/25, XY CHEST XRAY 1 VIEW on DOS: 12/29/24, XY CHEST PORTABLE on DOS: 12/20/24, chest CT dated 12/17/2024. TECHNIQUE: Portable AP view of the chest was performed. FINDINGS: Tracheostomy ventilation is re-identified. Right TRANSPORTATION PLANNER shunt catheter is re-identified. There is diffuse interstitial prominence. Lung volumes are low. Opacity in the left lung base partially obscures the left hemidiaphragm and left heart border. No pneumothorax. The heart is enlarged. IMPRESSION: 1. Tracheostomy ventilation and right TRANSPORTATION PLANNER shunt catheter re-identified. 2. Cardiomegaly with diffuse interstitial prominence which may be due to CHF, although this appearanc e may be exaggerated by low lung volumes. 3. Left basilar opacity may be due to infiltrate, effusion, and/or artifactual appearance related to left ventricular enlargement.
[2025-02-04 19:30] VITALS: O2SAT 97
[2025-02-04] MEDS: CEFEPIME 1GM/50ML 50 ML IV SCH (21:26)
[2025-02-04 22:20] VITALS: BP 144/63; PULSE 89; RESP 22; TEMP 99.1; O2SAT 95
[2025-02-04] MEDS: ACETYLCYSTEINE 20%(200MG/ML) SOL 4ML NEB ONE (22:20)
[2025-02-04] MEDS: IPRATROPIUM BROM 0.5 MG/2.5ML INH SOL NEB ONE (22:20)
[2025-02-04] MEDS: LEVALBUTEROL HCL 1.25 MG/3 ML NEB NEB ONE (22:20)
[2025-02-04 22:32] VITALS: PULSE 91; RESP 20; O2SAT 99
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
[2025-02-05] VITALS (18 sets, daily range): BP systolic 64–147; BP diastolic 39–80; PULSE 80–150; RESP 18–57; TEMP 97.7–99.9; O2SAT 92–100
[2025-02-05 03:04] LABS: Urine Amorphous Crystal FEW /hpf (None Seen); Urine Protein, UAD Negative (Negative)
[2025-02-05] MEDS: ALBUTEROL SULF 2.5 MG/0.5ML(0.5%) NEB SOLN NEB PRN (03:09)
[2025-02-05] MEDS: ACETYLCYSTEINE 10 %(100MG/ML) SOL 4ML NEB SCH (03:09)
[2025-02-05] MEDS: IPRATROPIUM BROM 0.5 MG/2.5ML INH SOL NEB PRN (03:09)
[2025-02-05] MEDS: DOXYCYCLINE 100MG/100ML 100 ML IV SCH (04:36)
[2025-02-05] MEDS ORDERED: levETIRAcetam 500 MG TAB PO SCH (05:00)
[2025-02-05] MEDS: BACLOFEN 10 MG TAB GT SCH (05:56)
--- NOTE | 2025-02-05 06:23 | DVH ---
Exam: CT CT AB PEL WO CON-NO ORAL OR IV History: g tube bleeding Comparison Study: CT CHST AB PEL WO CON-NO IV/ORAL on DOS: 12/17/24 Technique: Multidetector spiral CT of the abdomen and pelvis was performed from lung bases to pubic s ymphysis. Imaging was performed without intravenous contrast. Coronal and sagittal multiplanar reform ats were obtained from the axial data set by the technologist. Radiation Dose : 1. Abdomen/Pelvis: CTDIvol 16.6 mGy, DLP 1082.14 mGy*cm. Findings: Evaluation of vasculature and solid organs is limited due to lack of intravenous contrast use. Lung Bases: Bilateral lower lobe atelectasis. Visualized portions of the heart and pericardium are un remarkable. Liver: The liver is normal in size. No focal lesions. Gallbladder and Biliary Tree: The gallbladder contains multiple gallstones. No intrahepatic or extra hepatic biliary ductal dilatation. Spleen: Unremarkable Pancreas: The pancreas is grossly unremarkable. Adrenal Glands: Unremarkable Kidneys: Nonobstructive right intrarenal calculus. The left kidney is unremarkable. GI tract: There is a percutaneous gastrostomy tube with the anchoring balloon noted anterior to the g astric lumen. There is no small bowel dilatation or mucosal thickening. Liquid stool throughout the c olon. No findings to suggest acute appendicitis. Peritoneum/mesentery/retroperitoneum. No evidence of free intraperitoneal air. No ascites. No evidenc e of suspicious lymphadenopathy. There is a peritoneal catheter with its tip terminating in the righ t lower quadrant. Abdominal Wall: Unremarkable. Vasculature: The visualized abdominal aorta is normal in size and caliber. Evaluation of abdominal a nd pelvic vessels is limited due to lack of intravenous contrast. Urinary Bladder: Grossly unremarkable for degree of distention. Pelvic Organs: Unremarkable Musculoskeletal: No aggressive focal bony lesions, acute fractures or dislocation. Degenerative jones es in the bilateral hips. IMPRESSION: 1. Percutaneous gastrostomy tube malpositioned with anchoring balloon noted anterior to the gastric l umen. No pneumoperitoneum. 2. Cholelithiasis. 3. Nonobstructive right intrarenal calculus. 4. Liquid stool throughout the colon.
[2025-02-05 06:34] LABS: Hematocrit 46.0 % (41.0-53.0); Hemoglobin 15.3 g/dL (13.5-17.5); Mean Corpuscular Hemoglobin 28.9 pg (28.0-32.0); Mean Corpuscular Volume 86.8 fL (80.0-100.0); Nucleated Red Blood Cells % 0.1 %
[2025-02-05 06:45] LABS: Albumin 3.8 g/dL (3.2-4.8); Anion Gap 11 (5-15); BUN/Creatinine Ratio 12.3 (10.0-20.0); Glucose 80 mg/dL (74-106); Potassium 3.9 mmol/L (3.5-5.1); Sodium 140 mmol/L (136-145); Total Protein 7.0 g/dL (5.7-8.2)
[2025-02-05 06:46] LABS: Bilirubin, Total 1.1 mg/dL (0.2-1.0)
[2025-02-05 06:48] LABS: Alanine Aminotransferase 132 U/L (7-40); Alkaline Phosphatase 129 U/L (46-116); Blood Urea Nitrogen 7 mg/dL (9-23); Calcium 8.6 mg/dL (8.7-10.4); Carbon Dioxide 19 mmol/L (20-31); Chloride 110 mmol/L (98-107)
[2025-02-05] MEDS: LORATADINE 10 MG TAB GT SCH (10:40)
[2025-02-05] MEDS: ENOXAPARIN SOD 30 MG/0.3 ML SYRINGE IV SCH (11:38)
[2025-02-05] MEDS: CHLORHEXIDINE 0.12% ORAL rinse 473ML MT SCH (11:39)
[2025-02-05] MEDS: ZINC SULFATE 220mg CAP or TAB PO SCH (11:39)
[2025-02-05] MEDS: Pro-Stat SF 30ml Vanilla PO SCH (11:40)
[2025-02-05] MEDS ORDERED: [UNRECOGNIZED DRUG - CODE] GT (14:31)
--- NOTE | 2025-02-05 14:57 | DVHPN2 ---
Subjective Alert No distress Changes from previous H/P or p: Changes Objective Vitals Vital Signs Date Time Temp Pulse Resp B/P (MAP) Pulse Ox O2 Delivery O2 Flow Rate FiO2 02/05/25 14:38 114 28 100 02/05/25 12:00 99.1 161/79 (106) 99.1 02/05/25 07:00 Room Air* 0 21 Intake/Output Intake and Output 02/05/25 07:00 Intake Total 1500 ml Balance 1500 ml Intake IV Total 1500 ml General Appearance: Alert, Other Lungs: Clear to auscultation, Normal air movement Cardiovascular: Regular rate, Normal S1, Normal S2 Abdomen: Normal bowel sounds, Soft, No tenderness Extremities: No edema Medications Current Medications Medications Dose Ordered Sig/Ata Route Start Time Stop Time Status Last Admin Dose Admin Cefepime HCl 50 ml @ 12.5 mls/hr Q8HR IV 02/04/25 22:00 02/05/25 05:56 12.5 MLS/HR Ipratropium [place] 0.5 mg Q4HPRN PRN NEB 02/05/25 02:00 02/05/25 14:28 0.5 MG Albuterol 2.5 mg Q4HPRN PRN NEB 02/05/25 02:00 02/05/25 14:28 2.5 MG Acetylcysteine 100 mg Q4HR NEB 02/05/25 02:00 02/05/25 14:28 100 MG Doxycycline Hyclate 100 ml @ 50 mls/hr Q12H IV 02/05/25 04:00 02/05/25 04:36 50 MLS/HR Enoxaparin Sodium 40 mg DAILY IV 02/05/25 10:00 Amino Acid Protein 30 ml DAILY PO 02/05/25 10:00 Zinc Sulfate 220 mg DAILY PO 02/05/25 10:00 Loratadine 10 mg DAILY GT 02/05/25 10:00 02/05/25 10:40 10 MG Chlorhexidine Gluconate 15 ml Q12HR MT 02/05/25 10:00 Baclofen 10 mg Q8HR GT 02/05/25 06:00 02/05/25 05:56 10 MG Levetiracetam 100 mg BID GT 02/05/25 09:00 Laboratory Results Laboratory Tests 02/05/25 05:28 Chemistry Test 02/04/25 15:42 02/05/25 05:28 Albumin 4.1 g/dL (3.2-4.8) 3.8 g/dL (3.2-4.8) Calcium Level 9.2 mg/dL (8.7-10.4) 8.6 mg/dL (8.7-10.4) L Total Protein 7.4 g/dL (5.7-8.2) 7.0 g/dL (5.7-8.2) Coagulation Test 02/04/25 15:42 Prothrombin Time 10.7 sec (9.3-11.8) Prothrombin Time INR 1.01 (0.9-1.15) Activated Partial Thromboplast Time 29.0 SEC (24.5-34.5) LFT Test 02/04/25 15:42 02/05/25 05:28 Alanine Aminotransferase (ALT) 126 U/L (7-40) H 132 U/L (7-40) H Alkaline Phosphatase 135 U/L (46-116) H 129 U/L (46-116) H Aspartate Amino Transferase (AST) 74 U/L (13-40) H 84 U/L (13-40) H Total Bilirubin 1.0 mg/dL (0.2-1.0) 1.1 mg/dL (0.2-1.0) H Urinalysis Test 02/05/25 02:30 Urine Color Yellow (Yellow) Urine Clarity Turbid (Clear) H Urine pH 7.5 (5.0-9.0) Urine Specific [place] 1.017 (1.001-1.035) Urine Protein Negative (Negative) Urine Ketones Negative (Negative) Urine Blood Negative /uL (Negative) Urine Nitrite Negative (Negative) Urine Bilirubin Negative (Negative) Urine Urobilinogen Normal mg/dL (Negative) Urine Leukocyte Esterase Negative /uL (Negative) Urine RBC None seen /hpf (0 - 3) Urine Microscopic WBC < 1 /HPF (0-3) Urine Squamous Epithelial Cells None seen /hpf (<5) Urine Amorphous Crystals Few /hpf (None Seen) Urine Bacteria None seen /hpf (None Seen) Urine Glucose Normal mg/dL (Normal) Assessment/Plan Assessment/Plan G-tube site infection Cellulitis of the abdominal wall GT tube malposition Transaminitis History of traumatic brain injury Quadriplegia History of seizures History of endocarditis Cholelithiasis Nonobstructive right intrarenal calculus Plan Broad-spectrum antibiotics: Cefepime and doxycycline GI consult Keppra Monitor closely Discussed with the mother at the bedside Plan discussed with: Other Date of Service: Feb 05, 2025 Billing Provider: KENDAL SMALL MD Common Visit Codes: [id number] INP/OBS CARE(HIGH) Secondary Visit Codes: [id number] CARE PLAN 30 MINUTES KENDAL SAMLL MD Feb 05, 2025 14:57
--- NOTE | 2025-02-05 21:48 | DVHINCON2 ---
Date of service: Feb 05, [address] Jaramillo Reason for Consultation Malfunction of PEG tube Family History: Patient reports no known family medical history. Allergies: Coded Allergies: Piperacillin (Verified Adverse Reaction, Intermediate, URTICARIA, 12/11/24) Tazobactam (Verified Adverse Reaction, Intermediate, URTICARIA, 12/11/24) Home Meds Active Scripts Fluconazole (Fluconazole) 200 Mg Tab, 1 TAB PO DAILY for 3 Days, #3 TAB Prov:FLAKO WOODSON RESIDENT 12/09/24 Fluconazole (Fluconazole) 200 Mg Tab, 1 TAB PO DAILY for 3 Days, #3 TAB Prov:FLAKO WOODSON RESIDENT 12/09/24 Reported Medications Nutritional Supplements (Jevity 1.5 Nikko) Nikko Liq, 60 ML GT, LIQ 02/05/25 Levetiracetam (Keppra) 1,000 Mg Tab, 10 LIQ PO BID, #60 TAB 5 Refills 11/14/24 Amino Acids-Protein Hydrolysat (PRO-STAT) Liq, 30 ML OR DAILY, LIQ 11/14/24 Zinc Sulfate (Zinc Sulfate) 220 Mg Cap, 50 MG GT DAILY for 30 Days, MG 11/14/24 Potassium Chloride (POTASSIUM CHLORIDE CR) 10 Meq Tb, 20 MEQ GT DAILY, TAB 11/14/24 Multiple Vitamin (Multivitamins) Tab, 1 TAB GT DAILY, #30 TAB 2 Refills 11/14/24 Lorazepam (ATIVAN TABLET) 0.5 Mg Tb, 0.5 MG GT Q6HPRN PRN for SHORTNESS OF BREATH, TAB 11/14/24 Levalbuterol HCl (Levalbuterol) 1.25 Mg/0.5 Ml Neb, 1.25 MG IN Q4HP PRN for WHEEZING, INH 11/14/24 Lacosamide (Lacosamide) 150 Mg Tab, 15 ML GT BID, TAB 11/14/24 Loratadine (Claritin) 10 Mg Tab, 1 TAB PO DAILY for ALLERGIES, #30 TAB 5 Refills 11/14/24 Ipratropium-Albuterol (Ipratropium [place]/Albut) 1 Trace Trace, 1 TRACE IN Q6HPRN PRN for respiratory failure, ML 11/14/24 Glycopyrrolate (CUVPOSA) 1 Mg/5 Ml Trace, 1 MG PO Q8HPRN PRN for increased secretions, ML 11/14/24 Polyethylene Glycol 3350 (Miralax) 17 Gm Pow, 17 GM PO 3XW, POW 11/14/24 Chlorhexidine Gluconate (Mouth (CHLORHEXIDINE ORAL RINSE) 473 Ml So, 15 ML MT Q12HR, ML 11/14/24 Acetylcysteine (Acetylcysteine) 20 % Trace, 1 ML IN Q4HP PRN for thick secretions, ML 11/14/24 Diphenhydramine Hcl (Benadryl Allergy) 25 Mg Cap, 25 MG PO Q8HPRN PRN for allergies, CAP 11/14/24 Ascorbic Acid (VITAMIN C TABLET) 500 Mg Tb, 1 TAB GT BID, #60 TAB 11/14/24 Baclofen (Baclofen) 10 Mg Tab, 20 MG GT Q6HR for 30 Days, MG 11/14/24 Current Medications Current Medications Medications (Trade) Dose Ordered Sig/Ata Route PRN Reason Start Time Stop Time Status Last Admin Cefepime HCl 50 ml @ 12.5 mls/hr Q8HR IV 02/04/25 22:00 02/05/25 15:15 Ipratropium [place] (Atrovent Medneb) 0.5 mg Q4HPRN PRN NEB SHORTNESS OF BREATH 02/05/25 02:00 02/05/25 18:43 Albuterol (Ventolin Medneb) 2.5 mg Q4HPRN PRN NEB SHORTNESS OF BREATH 02/05/25 02:00 02/05/25 18:43 Acetylcysteine (Mucomyst Inahalation 10%) 100 mg Q4HR NEB 02/05/25 02:00 02/05/25 18:43 Doxycycline Hyclate 100 ml @ 50 mls/hr Q12H IV 02/05/25 04:00 02/05/25 18:16 Enoxaparin Sodium (Lovenox) 40 mg DAILY IV 02/05/25 10:00 Levetiracetam (Keppra Tablet) 1,000 mg BID PO 02/05/25 05:00 02/05/25 05:48 DC Amino Acid Protein (Pro-Stat Sugar Free) 30 ml DAILY PO 02/05/25 10:00 Zinc Sulfate 220 mg DAILY PO 02/05/25 10:00 Loratadine (Claritin Tablet) 10 mg DAILY GT 02/05/25 10:00 02/05/25 10:40 Chlorhexidine Gluconate (Chlorhexidine Oral Rinse) 15 ml Q12HR MT 02/05/25 10:00 Baclofen (Liorisal Tablet) 10 mg Q8HR GT 02/05/25 06:00 02/05/25 15:21 Levetiracetam (Keppra Oral Solution) 100 mg BID GT 02/05/25 09:00 Vital Signs Vital Signs Date Time Temp Pulse Resp B/P (MAP) Pulse Ox O2 Delivery O2 Flow Rate FiO2 02/05/25 18:53 118 25 100 02/05/25 18:43 Room Air 0.0 02/05/25 18:43 21 02/05/25 17:00 99.9 135/76 (95) 99.9 Labs/Diagnostic Data Labs Test 02/05/25 05:28 02/05/25 02:30 02/04/25 15:42 Range/Units White Blood Count 10.2 4.4-10.8 10^3/uL Red Blood Count 5.30 4.5-5.90 10^6/uL Hemoglobin 15.3 13.5-17.5 g/dL Hematocrit 46.0 41.0-53.0 % Mean Corpuscular Volume 86.8 80.0-100.0 fL Mean Corpuscular Hemoglobin 28.9 28.0-32.0 pg Mean Corpuscular Hemoglobin Concent 33.3 32.0-36.0 g/dL Red Cell Distribution Width 15.0 H 11.8-14.3 % Platelet Count 201 140-450 10^3/uL Mean Platelet Volume 8.9 6.9-10.8 fL Neutrophils (%) (Auto) 72.5 37.0-80.0 % Lymphocytes (%) (Auto) 15.6 10.0-50.0 % Monocytes (%) (Auto) 10.1 0.0-12.0 % Eosinophils (%) (Auto) 1.2 0.0-7.0 % Basophils (%) (Auto) 0.6 0.0-2.0 % Neutrophils # (Auto) 7.4 1.6-8.6 10 ^3/uL Lymphocytes # (Auto) 1.6 0.4-5.4 10 ^3/uL Monocytes # (Auto) 1.0 0-1.3 10 ^3/uL Eosinophils # (Auto) 0.1 0-0.8 10 ^3/uL Basophils # (Auto) 0.1 0-0.2 10 ^3/uL Nucleated Red Blood Cells 0.1 % Sodium Level 140 136-145 mmol/L Potassium Level 3.9 3.5-5.1 mmol/L Chloride Level 110 H 98-107 mmol/L Carbon Dioxide Level 19 L 20-31 mmol/L Anion Gap 11 5-15 Blood Urea Nitrogen 7 L 9-23 mg/dL Creatinine 0.57 L 0.700-1.30 mg/dL Glomerular Filtration Rate Calc 120 >90 mL/min BUN/Creatinine Ratio 12.3 10.0-20.0 Serum Glucose 80 74-106 mg/dL Calcium Level 8.6 L 8.7-10.4 mg/dL Total Bilirubin 1.1 H 0.2-1.0 mg/dL Aspartate Amino Transferase (AST) 84 H 13-40 U/L Alanine Aminotransferase (ALT) 132 H 7-40 U/L Alkaline Phosphatase 129 H 46-116 U/L Total Protein 7.0 5.7-8.2 g/dL Albumin 3.8 3.2-4.8 g/dL Urine Color Yellow Yellow Urine Clarity Turbid H Clear Urine pH 7.5 5.0-9.0 Urine Specific [place] 1.017 1.001-1.035 Urine Protein Negative Negative Urine Ketones Negative Negative Urine Blood Negative Negative /uL Urine Nitrite Negative Negative Urine Bilirubin Negative Negative Urine Urobilinogen Normal Negative mg/dL Urine Leukocyte Esterase Negative Negative /uL Urine RBC None seen 0 - 3 /hpf Urine Microscopic WBC < 1 0-3 /HPF Urine Squamous Epithelial Cells None seen <5 /hpf Urine Amorphous Crystals Few None Seen /hpf Urine Bacteria None seen None Seen /hpf Urine Glucose Normal Normal mg/dL Prothrombin Time 10.7 9.3-11.8 sec Prothrombin Time INR 1.01 0.9-1.15 Activated Partial Thromboplast Time 29.0 24.5-34.5 SEC Lactic Acid Level 1.0 0.4-2.0 mmol/L Microbiology Date/Time Source Procedure Growth Status 02/04/25 15:42 Blood Blood Culture - Preliminary NO GROWTH AFTER 24 HOURS OF INCUBATION. Resulted Problems(with codes): (1) Elevated liver enzymes (2) Generalized weakness (3) Acute hypoxic respiratory failure (4) Sepsis Plan/Recommendation Plan CT scan of the abdomen shows displacement or malpositioning of the PEG tube which may be lying outside the gastric lumen Keep patient NPO after midnight Surgical consult is pending I will evaluate him tomorrow afternoon for possible PEG tube removal and replacement Plan discussed with: Other (Nurse) SHANA HODGE MD Feb 05, 2025 21:48
[2025-02-05] MEDS: levETIRAcetam 500 mg/100ml 100 ML IV SCH (22:31)
[2025-02-06] VITALS (23 sets, daily range): BP systolic 134–148; BP diastolic 76–85; PULSE 103–122; RESP 18–28; TEMP 98–99.2; O2SAT 93–100
[2025-02-06 05:24] LABS: Hematocrit 47.2 % (41.0-53.0); Hemoglobin 15.6 g/dL (13.5-17.5); Mean Corpuscular Hemoglobin 28.5 pg (28.0-32.0); Mean Corpuscular Volume 86.0 fL (80.0-100.0); Nucleated Red Blood Cells % 0.1 %
[2025-02-06 05:41] LABS: Albumin 4.0 g/dL (3.2-4.8); Anion Gap 15 (5-15); BUN/Creatinine Ratio 16.4 (10.0-20.0); Blood Urea Nitrogen 10 mg/dL (9-23); Calcium 8.9 mg/dL (8.7-10.4); Chloride 106 mmol/L (98-107); Glucose 75 mg/dL (74-106); Magnesium 2.1 mg/dL (1.6-2.6); Potassium 3.5 mmol/L (3.5-5.1); Sodium 140 mmol/L (136-145); Total Protein 7.2 g/dL (5.7-8.2)
[2025-02-06 05:44] LABS: Alanine Aminotransferase 137 U/L (7-40); Alkaline Phosphatase 124 U/L (46-116); Bilirubin, Total 1.3 mg/dL (0.2-1.0); Carbon Dioxide 19 mmol/L (20-31)
[2025-02-06] MEDS ORDERED: LACO10SO PO (07:12)
--- NOTE | 2025-02-06 11:43 | DVHPN2 ---
Subjective Alert No distress Scheduled for G-tube replacement today Changes from previous H/P or p: Changes Objective Vitals Vital Signs Date Time Temp Pulse Resp B/P (MAP) Pulse Ox O2 Delivery O2 Flow Rate FiO2 02/06/25 10:03 114 22 100 02/06/25 09:47 Room Air 0.0 02/06/25 09:47 21 02/06/25 09:00 98.8 134/83 (100) 98.8 Intake/Output Intake and Output 02/06/25 07:00 Intake Total 300 ml Balance 300 ml Intake Oral 0 ml IV Total 300 ml # Voids 2 General Appearance: Alert, Other Lungs: Clear to auscultation, Normal air movement Cardiovascular: Regular rate, Normal S1, Normal S2 Abdomen: Normal bowel sounds, Soft, No tenderness Extremities: No edema Medications Current Medications Medications Dose Ordered Sig/Ata Route Start Time Stop Time Status Last Admin Dose Admin Cefepime HCl 50 ml @ 12.5 mls/hr Q8HR IV 02/04/25 22:00 02/06/25 05:14 12.5 MLS/HR Ipratropium [place] 0.5 mg Q4HPRN PRN NEB 02/05/25 02:00 02/06/25 09:46 0.5 MG Albuterol 2.5 mg Q4HPRN PRN NEB 02/05/25 02:00 02/06/25 09:46 2.5 MG Acetylcysteine 100 mg Q4HR NEB 02/05/25 02:00 02/06/25 09:47 100 MG Doxycycline Hyclate 100 ml @ 50 mls/hr Q12H IV 02/05/25 04:00 02/06/25 03:09 50 MLS/HR Enoxaparin Sodium 40 mg DAILY IV 02/05/25 10:00 Amino Acid Protein 30 ml DAILY PO 02/05/25 10:00 Zinc Sulfate 220 mg DAILY PO 02/05/25 10:00 Loratadine 10 mg DAILY GT 02/05/25 10:00 02/05/25 10:40 10 MG Chlorhexidine Gluconate 15 ml Q12HR MT 02/05/25 10:00 Baclofen 10 mg Q8HR GT 02/05/25 06:00 02/05/25 15:21 10 MG Levetiracetam 100 ml @ 400 mls/hr BID IV 02/05/25 23:00 02/06/25 10:21 400 MLS/HR Laboratory Results Laboratory Tests 02/06/25 04:36 Chemistry Test 02/06/25 04:36 Albumin 4.0 g/dL (3.2-4.8) Calcium Level 8.9 mg/dL (8.7-10.4) Magnesium Level 2.1 mg/dL (1.6-2.6) Total Protein 7.2 g/dL (5.7-8.2) LFT Test 02/06/25 04:36 Alanine Aminotransferase (ALT) 137 U/L (7-40) H Alkaline Phosphatase 124 U/L (46-116) H Aspartate Amino Transferase (AST) 76 U/L (13-40) H Total Bilirubin 1.3 mg/dL (0.2-1.0) H Urinalysis Test 02/05/25 02:30 Urine Color Yellow (Yellow) Urine Clarity Turbid (Clear) H Urine pH 7.5 (5.0-9.0) Urine Specific [place] 1.017 (1.001-1.035) Urine Protein Negative (Negative) Urine Ketones Negative (Negative) Urine Blood Negative /uL (Negative) Urine Nitrite Negative (Negative) Urine Bilirubin Negative (Negative) Urine Urobilinogen Normal mg/dL (Negative) Urine Leukocyte Esterase Negative /uL (Negative) Urine RBC None seen /hpf (0 - 3) Urine Microscopic WBC < 1 /HPF (0-3) Urine Squamous Epithelial Cells None seen /hpf (<5) Urine Amorphous Crystals Few /hpf (None Seen) Urine Bacteria None seen /hpf (None Seen) Urine Glucose Normal mg/dL (Normal) Microbiology Microbiology Date/Time Source Procedure Growth Status 02/05/25 19:04 Abdomen Gram Stain Pending Resulted 02/05/25 19:04 Abdomen Wound Culture - Preliminary Resulted 02/04/25 15:42 Blood Blood Culture - Preliminary NO GROWTH AFTER 24 HOURS OF INCUBATION. Resulted Assessment/Plan Assessment/Plan G-tube site infection Cellulitis of the abdominal wall GT tube malposition Transaminitis History of traumatic brain injury Quadriplegia History of seizures History of endocarditis Cholelithiasis Nonobstructive right intrarenal calculus Plan Broad-spectrum antibiotics: Cefepime and doxycycline GI consult Keppra Monitor closely Discussed with the mother at the bedside 02/06/2025: G-tube replacement today IV antibiotics Continue Keppra Monitor closely Plan discussed with: Other Date of Service: Feb 06, 2025 Billing Provider: KENDAL SMALL MD Common Visit Codes: [id number] INP/OBS CARE(HIGH) KENDAL SMALL MD Feb 06, 2025 11:43
--- NOTE | 2025-02-06 15:22 | DVHPN2 ---
Progress Note Date Seen: Feb 06, 2025 Resident Creating Document: ANKIT JEFFRIES RESIDENT Medical Necessity Reason Pt with a Central, PICC or Fol: Yes Subjective Review of Systems Patient seen and examined at bedside Continues to have shakes Last BM 02/04/2025 No vomiting, no abdominal pain Redness noted around G-tube site with minimal to scant drainage. Objective vital signs Vital Sign Date Time Temp Pulse Resp B/P (MAP) Pulse Ox O2 Delivery O2 Flow Rate FiO2 02/06/25 13:10 116 20 100 02/06/25 13:04 Room Air 0.0 02/06/25 13:04 21 02/06/25 13:00 98.1 138/76 (96) 98.1 Total Intake and Output 02/05/25 02/05/25 02/06/25 15:00 23:00 07:00 Intake Total 50 ml 100 ml 150 ml Balance 50 ml 100 ml 150 ml medications Current Medications Medications Dose Ordered Sig/Ata Route Start Time Stop Time Status Last Admin Dose Admin Cefepime HCl 50 ml @ 12.5 mls/hr Q8HR IV 02/04/25 22:00 02/06/25 13:35 12.5 MLS/HR Ipratropium [place] 0.5 mg Q4HPRN PRN NEB 02/05/25 02:00 02/06/25 13:03 0.5 MG Albuterol 2.5 mg Q4HPRN PRN NEB 02/05/25 02:00 02/06/25 13:03 2.5 MG Acetylcysteine 100 mg Q4HR NEB 02/05/25 02:00 02/06/25 13:04 100 MG Doxycycline Hyclate 100 ml @ 50 mls/hr Q12H IV 02/05/25 04:00 02/06/25 03:09 50 MLS/HR Enoxaparin Sodium 40 mg DAILY IV 02/05/25 10:00 Amino Acid Protein 30 ml DAILY PO 02/05/25 10:00 Zinc Sulfate 220 mg DAILY PO 02/05/25 10:00 Loratadine 10 mg DAILY GT 02/05/25 10:00 02/05/25 10:40 10 MG Chlorhexidine Gluconate 15 ml Q12HR MT 02/05/25 10:00 Baclofen 10 mg Q8HR GT 02/05/25 06:00 02/05/25 15:21 10 MG Levetiracetam 100 ml @ 400 mls/hr BID IV 02/05/25 23:00 02/06/25 10:21 400 MLS/HR Examination General Appearance: Cooperative. Well developed. Pulmonary/Respiratory: Equal bilateral air entry Cardiovascular/Chest: Regular rate and rhythm. No murmurs. No JVD. Abdominal Exam: Peg tube noted, redness around G-tube entry site with minimal to scant drainage. Ankle Exam: Negative ankle edema Skin Exam: Normal inspection. Normal color. Warm. Dry laboratory and microbiology Laboratory Tests 02/06/25 04:36 Test 02/06/25 04:36 Range/Units Serum Glucose 75 74-106 mg/dL Microbiology Date/Time Source Procedure Growth Status 02/05/25 19:04 Abdomen Gram Stain Pending Resulted 02/05/25 19:04 Abdomen Wound Culture - Preliminary Resulted 02/04/25 15:42 Blood Blood Culture - Preliminary NO GROWTH AFTER 24 HOURS OF INCUBATION. Resulted Labs and/or images reviewed: Labs reviewed by me, Image(s) reviewed by me Problem List/Assessment/Plan Problem List/Assessment/Plan Dislodgement of G-tube G-tube site cellulitis Sepsis due to above Generalized weakness Abnormal LFTs Cholelithiasis Plan: IV hydration Continue antibiotics Right upper quadrant ultrasound IV Clinimix PEG tube removal and replacement a soon as or is available Keep NPO Thank you so much for the opportunity to consult on your patient. GI team will follow the patient. In case of any questions or concerns please feel free to reach out. Plan discussed with Dr. Gupta Plan discussed with: Other (RN) ANKIT JEFFRIES RESIDENT Feb 06, 2025 15:22
[2025-02-06] MEDS ORDERED: CLINIMIX PER PHARMACY 0 ML IV SCH (15:30)
--- NOTE | 2025-02-06 16:16 | DVHINCON2 ---
Date of service: Feb 06, 2025 Family History: Patient reports no known family medical history. Allergies: Coded Allergies: Piperacillin (Verified Adverse Reaction, Intermediate, URTICARIA, 12/11/24) Home Meds Active Scripts Fluconazole (Fluconazole) 200 Mg Tab, 1 TAB PO DAILY for 3 Days, #3 TAB Prov:FLAKO WOODSON RESIDENT 12/09/24 Fluconazole (Fluconazole) 200 Mg Tab, 1 TAB PO DAILY for 3 Days, #3 TAB Prov:FLAKO WOODSON RESIDENT 12/09/24 Reported Medications Lacosamide (Lacosamide) 10 Mg/Ml Trace, 10 MG PO BID, ML 02/06/25 Nutritional Supplements (Jevity 1.5 Nikko) Nikko Liq, 60 ML GT, LIQ 02/05/25 Levetiracetam (Keppra) 1,000 Mg Tab, 10 LIQ PO BID, #60 TAB 5 Refills 11/14/24 Amino Acids-Protein Hydrolysat (PRO-STAT) Liq, 30 ML OR DAILY, LIQ 11/14/24 Zinc Sulfate (Zinc Sulfate) 220 Mg Cap, 50 MG GT DAILY for 30 Days, MG 11/14/24 Potassium Chloride (POTASSIUM CHLORIDE CR) 10 Meq Tb, 20 MEQ GT DAILY, TAB 11/14/24 Multiple Vitamin (Multivitamins) Tab, 1 TAB GT DAILY, #30 TAB 2 Refills 11/14/24 Lorazepam (ATIVAN TABLET) 0.5 Mg Tb, 0.5 MG GT Q6HPRN PRN for SHORTNESS OF BREATH, TAB 11/14/24 Levalbuterol HCl (Levalbuterol) 1.25 Mg/0.5 Ml Neb, 1.25 MG IN Q4HP PRN for WHEEZING, INH 11/14/24 Lacosamide (Lacosamide) 150 Mg Tab, 15 ML GT BID, TAB 11/14/24 Loratadine (Claritin) 10 Mg Tab, 1 TAB PO DAILY for ALLERGIES, #30 TAB 5 Refills 11/14/24 Ipratropium-Albuterol (Ipratropium [place]/Albut) 1 Trace Trace, 1 TRACE IN Q6HPRN PRN for respiratory failure, ML 11/14/24 Glycopyrrolate (CUVPOSA) 1 Mg/5 Ml Trace, 1 MG PO Q8HPRN PRN for increased secretions, ML 11/14/24 Polyethylene Glycol 3350 (Miralax) 17 Gm Pow, 17 GM PO 3XW, POW 11/14/24 Chlorhexidine Gluconate (Mouth (CHLORHEXIDINE ORAL RINSE) 473 Ml So, 15 ML MT Q12HR, ML 11/14/24 Acetylcysteine (Acetylcysteine) 20 % Trace, 1 ML IN Q4HP PRN for thick secretions, ML 11/14/24 Diphenhydramine Hcl (Benadryl Allergy) 25 Mg Cap, 25 MG PO Q8HPRN PRN for allergies, CAP 11/14/24 Ascorbic Acid (VITAMIN C TABLET) 500 Mg Tb, 1 TAB GT BID, #60 TAB 11/14/24 Baclofen (Baclofen) 10 Mg Tab, 20 MG GT Q6HR for 30 Days, MG 11/14/24 Current Medications Current Medications Medications (Trade) Dose Ordered Sig/Ata Route PRN Reason Start Time Stop Time Status Last Admin Levetiracetam 100 ml @ 400 mls/hr BID IV 02/05/25 23:00 02/06/25 10:21 Amino Acids 0 ml @ 0 mls/hr PER PHARMACY IV 02/06/25 15:30 Sodium Chloride 1,000 ml @ 75 mls/hr [id number] IV 02/06/25 15:30 Amino Acids/ Electrolytes/ Dextrose 1,000 ml @ 41 mls/hr DAILY@2200 IV 02/06/25 22:00 Diagnostic Test (Pha) (Accu-Chek Comfort Curve T) 1 strip Q6HR 02/07/25 00:00 Insulin Human Regular (InsuLIN R) FOLLOW SLIDING SCALE Q6HR SC 02/07/25 00:00 Dextrose 50 ml UD IV 02/06/25 22:00 Vital Signs Vital Signs Date Time Temp Pulse Resp B/P (MAP) Pulse Ox O2 Delivery O2 Flow Rate FiO2 02/06/25 13:10 116 20 100 02/06/25 13:04 Room Air 0.0 02/06/25 13:04 21 02/06/25 13:00 98.1 138/76 (96) 98.1 Labs/Diagnostic Data Labs Test 02/06/25 04:36 02/05/25 02:30 02/04/25 15:42 Range/Units White Blood Count 9.4 4.4-10.8 10^3/uL Red Blood Count 5.48 4.5-5.90 10^6/uL Hemoglobin 15.6 13.5-17.5 g/dL Hematocrit 47.2 41.0-53.0 % Mean Corpuscular Volume 86.0 80.0-100.0 fL Mean Corpuscular Hemoglobin 28.5 28.0-32.0 pg Mean Corpuscular Hemoglobin Concent 33.1 32.0-36.0 g/dL Red Cell Distribution Width 15.1 H 11.8-14.3 % Platelet Count 217 140-450 10^3/uL Mean Platelet Volume 8.9 6.9-10.8 fL Neutrophils (%) (Auto) 68.6 37.0-80.0 % Lymphocytes (%) (Auto) 18.1 10.0-50.0 % Monocytes (%) (Auto) 11.5 0.0-12.0 % Eosinophils (%) (Auto) 1.1 0.0-7.0 % Basophils (%) (Auto) 0.7 0.0-2.0 % Neutrophils # (Auto) 6.4 1.6-8.6 10 ^3/uL Lymphocytes # (Auto) 1.7 0.4-5.4 10 ^3/uL Monocytes # (Auto) 1.1 0-1.3 10 ^3/uL Eosinophils # (Auto) 0.1 0-0.8 10 ^3/uL Basophils # (Auto) 0.1 0-0.2 10 ^3/uL Nucleated Red Blood Cells 0.1 % Sodium Level 140 136-145 mmol/L Potassium Level 3.5 3.5-5.1 mmol/L Chloride Level 106 98-107 mmol/L Carbon Dioxide Level 19 L 20-31 mmol/L Anion Gap 15 5-15 Blood Urea Nitrogen 10 9-23 mg/dL Creatinine 0.61 L 0.700-1.30 mg/dL Glomerular Filtration Rate Calc 118 >90 mL/min BUN/Creatinine Ratio 16.4 10.0-20.0 Serum Glucose 75 74-106 mg/dL Calcium Level 8.9 8.7-10.4 mg/dL Magnesium Level 2.1 1.6-2.6 mg/dL Total Bilirubin 1.3 H 0.2-1.0 mg/dL Aspartate Amino Transferase (AST) 76 H 13-40 U/L Alanine Aminotransferase (ALT) 137 H 7-40 U/L Alkaline Phosphatase 124 H 46-116 U/L Total Protein 7.2 5.7-8.2 g/dL Albumin 4.0 3.2-4.8 g/dL Urine Color Yellow Yellow Urine Clarity Turbid H Clear Urine pH 7.5 5.0-9.0 Urine Specific [place] 1.017 1.001-1.035 Urine Protein Negative Negative Urine Ketones Negative Negative Urine Blood Negative Negative /uL Urine Nitrite Negative Negative Urine Bilirubin Negative Negative Urine Urobilinogen Normal Negative mg/dL Urine Leukocyte Esterase Negative Negative /uL Urine RBC None seen 0 - 3 /hpf Urine Microscopic WBC < 1 0-3 /HPF Urine Squamous Epithelial Cells None seen <5 /hpf Urine Amorphous Crystals Few None Seen /hpf Urine Bacteria None seen None Seen /hpf Urine Glucose Normal Normal mg/dL Prothrombin Time 10.7 9.3-11.8 sec Prothrombin Time INR 1.01 0.9-1.15 Activated Partial Thromboplast Time 29.0 24.5-34.5 SEC Lactic Acid Level 1.0 0.4-2.0 mmol/L Microbiology Date/Time Source Procedure Growth Status 02/05/25 19:04 Abdomen Gram Stain Pending Resulted 02/05/25 19:04 Abdomen Wound Culture - Preliminary Resulted 02/04/25 15:42 Blood Blood Culture - Preliminary NO GROWTH AFTER 48 HOURS OF INCUBATION. Resulted Assessment [id number] AFEBRILE VSS QUADRIPLEGIA SEC TO HEAD TRAUMA AND SURGERY DISPLACED G TUBE ATTEMPT ADJUSTMENT AT BEDSIDE AND CONFIRM LOCATION WITH KUB AND CONTRAST STUDY NURSE AT BEDSIDE CONSIDER REPLACEMENT INDICATED BASED ON ONGOING EVAL Plan discussed with: Other MITZI HODGE MD Feb 06, 2025 16:16
--- NOTE | 2025-02-06 17:04 | DVH ---
Technique: Real-time ultrasound imaging of the abdomen was performed with grayscale and color Doppler . Indication: eval ruq Comparison: CT abdomen from 02/05/2025 Findings: Very limited examination due to bowel gas/habitus Liver measures 10.9 cm. It is increased in echogenicity and echotexture without focal mass. Portal v ein is normal in caliber and demonstrates normal hepatopetal flow. Gallbladder is nonvisualized. CBD nonvisualized The right kidney measures 11.1 cm. There is no hydronephrosis or sonographic evidence of nephrolithia sis. The pancreas and IVC are not adequately characterized. Impression: Very limited examination due to bowel gas/habitus. Gallbladder and CBD nonvisualized. However previous CT from 02/05/2025 does demonstrate evidence of cholelithiasis. MRCP can be obtained to further evaluate. Echogenic liver which can be seen with hepatic steatosis, cirrhosis.
[2025-02-06] MEDS: SODIUM CHLORIDE 0.9% 1,000 ML IV SCH (17:25)
--- NOTE | 2025-02-06 17:49 | DVH ---
ABDOMEN, (KUB) ONE VIEW REASON FOR EXAM: check gastrostomy placement COMPARISON: US ABDOMEN LIMITED on DOS: 02/06/25, CT CT AB PEL WO CON-NO ORAL OR IV on DOS: 02/05/25 TECHNIQUE: A single view of the abdomen is obtained. 60 cc Gastrografin injected by G-tube. FINDINGS: The bowel gas pattern is nonspecific. There are gas-filled, dilated loops of small bowel i n the right abdomen. The colonic stool burden is small. There is partial visualization of a DITCH CLEANER shunt catheter. Contrast injected through the gastrostomy tube opacifies gastric rugae and passes through t he duodenum into the proximal jejunum. There is no evidence of contrast leakage from the stomach. IMPRESSION: Confirmed intragastric placement of gastrostomy tube.
[2025-02-06] MEDS ORDERED: DEXTROSE (50%) 50ML SYRG IV SCH (22:00)
--- NOTE | 2025-02-06 22:40 | DVHINCON2 ---
DATE OF CONSULTATION: 02/06/2025 HISTORY OF PRESENT ILLNESS: This patient is 49 years old, unable to give adequate history. Most of the information obtained from the chart and from the nursing staff. 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 PAST MEDICAL HISTORY: Traumatic brain injury, quadriplegia, seizures, and prior endocarditis. PAST SURGICAL HISTORY: Brain surgery ____. PHYSICAL EXAMINATION: VITAL SIGNS: Afebrile, stable signs. HEENT: With no evidence of pallor, cyanosis or jaundice. NECK: Supple and nontender, with no thyromegaly or lymphadenopathy. CHEST AND LUNGS: Clear. HEART: Within normal limits. ABDOMEN: Soft. He does have a possible G-tube displaced that was replaced back into the appropriate location and the G-tube has a bulb that was deflated and then inflated without any complication. NEUROLOGIC: Not assessed. EXTREMITIES: Unremarkable. CLINICAL IMPRESSION: Displaced G-tube. PLAN: An attempt made at the bedside for replacement of the G-tube and a KUB was ordered with Gastrografin study upper GI to determine appropriate location of the G-tube and based upon that, feeding can be started and if the tube is not in place, then he will require replacement of the G-tube. MD FIORELLA Catherine/POOJA/DYLON TID: [id number] RECEIPT: [id number] cc: PRATIK Samuel, Lanny Jaramillo MD
[2025-02-07] VITALS (18 sets, daily range): BP systolic 107–139; BP diastolic 54–82; PULSE 77–110; RESP 16–24; TEMP 97.2–99.2; O2SAT 94–100
[2025-02-07] MEDS: ACCU-CHEK COMFORT CURVE STRIP VI SCH (00:55)
[2025-02-07] MEDS: InsuLIN REG 1unit/0.01ml Soln (100units/ml) SC SCH (00:55)
[2025-02-07] MEDS: AMINO ACID INFUSION IN D10W 1,000 ML IV SCH (01:04)
[2025-02-07 08:05] LABS: Albumin 3.8 g/dL (3.2-4.8); Alkaline Phosphatase 111 U/L (46-116); Anion Gap 12 (5-15); BUN/Creatinine Ratio 23.7 (10.0-20.0); Blood Urea Nitrogen 14 mg/dL (9-23); Calcium 8.7 mg/dL (8.7-10.4); Carbon Dioxide 22 mmol/L (20-31); Chloride 106 mmol/L (98-107); Glucose 97 mg/dL (74-106); Magnesium 2.2 mg/dL (1.6-2.6); Sodium 140 mmol/L (136-145); Total Protein 6.9 g/dL (5.7-8.2); Triglycerides 73 mg/dL (< 150)
[2025-02-07 08:06] LABS: Bilirubin, Total 1.0 mg/dL (0.2-1.0)
[2025-02-07 08:10] LABS: Alanine Aminotransferase 117 U/L (7-40); Potassium 3.3 mmol/L (3.5-5.1)
[2025-02-07] MEDS: CEFEPIME 1GM/50ML 50 ML IV SCH (08:51)
--- NOTE | 2025-02-07 10:50 | DVHPN2 ---
Subjective No new complaints No seizures The G-tube was repositioned by Dr. Gupta Changes from previous H/P or p: Changes Objective Vitals Vital Signs Date Time Temp Pulse Resp B/P (MAP) Pulse Ox O2 Delivery O2 Flow Rate FiO2 02/07/25 10:27 102 20 100 02/07/25 08:37 97.5 107/82 (90) 97.5 02/07/25 07:33 T-piece 6 N/A Cool Aerosol Intake/Output Intake and Output 02/07/25 07:00 Intake Total 150 ml Balance 150 ml Intake Oral 0 ml IV Total 150 ml # Voids 4 General Appearance: Alert, Other Lungs: Clear to auscultation, Normal air movement Cardiovascular: Regular rate, Normal S1, Normal S2 Abdomen: Normal bowel sounds, Soft, No tenderness Extremities: No edema Medications Current Medications Medications Dose Ordered Sig/Ata Route Start Time Stop Time Status Last Admin Dose Admin Ipratropium [place] 0.5 mg Q4HPRN PRN NEB 02/05/25 02:00 02/07/25 10:20 0.5 MG Albuterol 2.5 mg Q4HPRN PRN NEB 02/05/25 02:00 02/07/25 10:20 2.5 MG Acetylcysteine 100 mg Q4HR NEB 02/05/25 02:00 02/07/25 10:20 100 MG Amino Acid Protein 30 ml DAILY PO 02/05/25 10:00 Zinc Sulfate 220 mg DAILY PO 02/05/25 10:00 Loratadine 10 mg DAILY GT 02/05/25 10:00 02/05/25 10:40 10 MG Chlorhexidine Gluconate 15 ml Q12HR MT 02/05/25 10:00 02/06/25 00:13 15 ML Baclofen 10 mg Q8HR GT 02/05/25 06:00 02/05/25 15:21 10 MG Levetiracetam 100 ml @ 400 mls/hr BID IV 02/05/25 23:00 02/07/25 08:23 400 MLS/HR Amino Acids 0 ml @ 0 mls/hr PER PHARMACY IV 02/06/25 15:30 Sodium Chloride 1,000 ml @ 75 mls/hr [id number] IV 02/06/25 15:30 02/06/25 17:25 75 MLS/HR Amino Acids/ Electrolytes/ Dextrose 1,000 ml @ 41 mls/hr DAILY@2200 IV 02/06/25 22:00 02/07/25 01:04 41 MLS/HR Diagnostic Test (Pha) 1 strip Q6HR 02/07/25 00:00 02/07/25 06:27 1 STRIP Insulin Human Regular FOLLOW SLIDING SCALE Q6HR SC 02/07/25 00:00 Dextrose 50 ml UD IV 02/06/25 22:00 Cefepime HCl 50 ml @ 12.5 mls/hr Q8H IV 02/07/25 09:30 02/07/25 08:51 12.5 MLS/HR Doxycycline Hyclate 100 ml @ 50 mls/hr Q12H IV 02/07/25 18:00 Laboratory Results Laboratory Tests 02/06/25 04:36 02/07/25 07:08 Chemistry Test 02/07/25 07:08 Albumin 3.8 g/dL (3.2-4.8) Calcium Level 8.7 mg/dL (8.7-10.4) Magnesium Level 2.2 mg/dL (1.6-2.6) Phosphorus Level 1.9 mg/dL (2.4-5.1) L Total Protein 6.9 g/dL (5.7-8.2) Lipid panel Test 02/07/25 07:08 Triglycerides Level 73 mg/dL (< 150) LFT Test 02/07/25 07:08 Alanine Aminotransferase (ALT) 117 U/L (7-40) H Alkaline Phosphatase 111 U/L (46-116) Aspartate Amino Transferase (AST) 60 U/L (13-40) H Total Bilirubin 1.0 mg/dL (0.2-1.0) Urinalysis Test 02/05/25 02:30 Urine Color Yellow (Yellow) Urine Clarity Turbid (Clear) H Urine pH 7.5 (5.0-9.0) Urine Specific [place] 1.017 (1.001-1.035) Urine Protein Negative (Negative) Urine Ketones Negative (Negative) Urine Blood Negative /uL (Negative) Urine Nitrite Negative (Negative) Urine Bilirubin Negative (Negative) Urine Urobilinogen Normal mg/dL (Negative) Urine Leukocyte Esterase Negative /uL (Negative) Urine RBC None seen /hpf (0 - 3) Urine Microscopic WBC < 1 /HPF (0-3) Urine Squamous Epithelial Cells None seen /hpf (<5) Urine Amorphous Crystals Few /hpf (None Seen) Urine Bacteria None seen /hpf (None Seen) Urine Glucose Normal mg/dL (Normal) Microbiology Microbiology Date/Time Source Procedure Growth Status 02/05/25 19:04 Abdomen Gram Stain - Final Resulted 02/05/25 19:04 Abdomen Wound Culture - Preliminary Resulted 02/04/25 15:42 Blood Blood Culture - Preliminary NO GROWTH AFTER 48 HOURS OF INCUBATION. Resulted Assessment/Plan Assessment/Plan G-tube site infection Cellulitis of the abdominal wall GT tube malposition Transaminitis History of traumatic brain injury Quadriplegia History of seizures History of endocarditis Cholelithiasis Nonobstructive right intrarenal calculus Plan Broad-spectrum antibiotics: Cefepime and doxycycline GI consult Keppra Monitor closely Discussed with the mother at the bedside 02/06/2025: G-tube replacement today IV antibiotics Continue Keppra Monitor closely 02/07/2025: Resume the home medications Continue IV antibiotics GI recommended to resume tube feeding Plan discussed with: Patient My Orders Orders - KENDAL SMALL MD Procedure Category Date Status Time Transfer Orders XFER 02/07/25 Transmitted 09:33 Date of Service: Feb 07, 2025 Billing Provider: EKNDAL SMALL MD Common Visit Codes: [id number] INP/OBS CARE(HIGH) KENDAL SMALL MD Feb 07, 2025 10:50
[2025-02-07] MEDS: POTASSIUM PHOSPHATE 26.4 MEQ in SODIUM CHL 0.9% 100 ML IV ONE (11:31)
--- NOTE | 2025-02-07 12:59 | DVHPN2 ---
Progress Note Date Seen: Feb 07, 2025 Medical Necessity Reason Pt with a Central, PICC or Fol: Yes Objective vital signs Vital Sign Date Time Temp Pulse Resp B/P (MAP) Pulse Ox O2 Delivery O2 Flow Rate FiO2 02/07/25 12:43 99.2 103 18 136/76 (96) 98 99.2 02/07/25 07:33 T-piece 6 N/A Cool Aerosol Total Intake and Output 02/06/25 02/06/25 02/07/25 15:00 23:00 07:00 Intake Total 50 ml 100 ml 0 ml Balance 50 ml 100 ml 0 ml medications Current Medications Medications Dose Ordered Sig/Ata Route Start Time Stop Time Status Last Admin Dose Admin Ipratropium [place] 0.5 mg Q4HPRN PRN NEB 02/05/25 02:00 02/07/25 10:20 0.5 MG Albuterol 2.5 mg Q4HPRN PRN NEB 02/05/25 02:00 02/07/25 10:20 2.5 MG Acetylcysteine 100 mg Q4HR NEB 02/05/25 02:00 02/07/25 10:20 100 MG Amino Acid Protein 30 ml DAILY PO 02/05/25 10:00 Zinc Sulfate 220 mg DAILY PO 02/05/25 10:00 Loratadine 10 mg DAILY GT 02/05/25 10:00 02/05/25 10:40 10 MG Chlorhexidine Gluconate 15 ml Q12HR MT 02/05/25 10:00 02/06/25 00:13 15 ML Baclofen 10 mg Q8HR GT 02/05/25 06:00 02/05/25 15:21 10 MG Levetiracetam 100 ml @ 400 mls/hr BID IV 02/05/25 23:00 02/07/25 08:23 400 MLS/HR Amino Acids 0 ml @ 0 mls/hr PER PHARMACY IV 02/06/25 15:30 Sodium Chloride 1,000 ml @ 75 mls/hr [id number] IV 02/06/25 15:30 02/06/25 17:25 75 MLS/HR Amino Acids/ Electrolytes/ Dextrose 1,000 ml @ 41 mls/hr DAILY@2200 IV 02/06/25 22:00 02/07/25 01:04 41 MLS/HR Diagnostic Test (Pha) 1 strip Q6HR 02/07/25 00:00 02/07/25 11:39 1 STRIP Insulin Human Regular FOLLOW SLIDING SCALE Q6HR SC 02/07/25 00:00 Dextrose 50 ml UD IV 02/06/25 22:00 Cefepime HCl 50 ml @ 12.5 mls/hr Q8H IV 02/07/25 09:30 02/07/25 08:51 12.5 MLS/HR Doxycycline Hyclate 100 ml @ 50 mls/hr Q12H IV 02/07/25 18:00 Enteral Nutritional Formula 1,000 ml 75ML/HR GT 02/07/25 12:45 laboratory and microbiology Laboratory Tests 02/07/25 07:08 02/06/25 04:36 Test 02/07/25 07:08 Range/Units Serum Glucose 97 74-106 mg/dL Microbiology Date/Time Source Procedure Growth Status 02/05/25 19:04 Abdomen Gram Stain - Final Resulted 02/05/25 19:04 Abdomen Wound Culture - Preliminary Resulted 02/04/25 15:42 Blood Blood Culture - Preliminary NO GROWTH AFTER 48 HOURS OF INCUBATION. Resulted Problem List/Assessment/Plan Problem List/Assessment/Plan AFEBRILE VSS ABD SOFT G TUBE IN PLACE ALLOW TUBE FEEDS INDICATED AND MAGALYS NURSE AT BEDSIDE Plan discussed with: Other MITZI HODGE MD Feb 07, 2025 12:59
--- NOTE | 2025-02-07 13:35 | DVHPN2 ---
Progress Note - Dictate Date Seen: Feb 07, 2025 Medical Necessity Reason Pt with a Central, PICC or Fol: Yes Subjective Patient is seen at bedside somewhat lethargic Patient is having tremors and shakes G-tube site appears to be clean with no significant discharge G-tube was replaced and balloon was inflated yesterday Gastrostomy tube x-ray shows that the gastrostomy tube was in good place without any leakage contrast vital signs Vital Sign Date Time Temp Pulse Resp B/P (MAP) Pulse Ox O2 Delivery O2 Flow Rate FiO2 02/07/25 12:43 99.2 103 18 136/76 (96) 98 99.2 02/07/25 08:00 Room Air* 0 21 Total Intake and Output 02/06/25 02/06/25 02/07/25 15:00 23:00 07:00 Intake Total 50 ml 100 ml 0 ml Balance 50 ml 100 ml 0 ml medications Current Medications Medications Dose Ordered Sig/Ata Route Start Time Stop Time Status Last Admin Dose Admin Ipratropium [place] 0.5 mg Q4HPRN PRN NEB 02/05/25 02:00 02/07/25 10:20 0.5 MG Albuterol 2.5 mg Q4HPRN PRN NEB 02/05/25 02:00 02/07/25 10:20 2.5 MG Acetylcysteine 100 mg Q4HR NEB 02/05/25 02:00 02/07/25 10:20 100 MG Amino Acid Protein 30 ml DAILY PO 02/05/25 10:00 Zinc Sulfate 220 mg DAILY PO 02/05/25 10:00 Loratadine 10 mg DAILY GT 02/05/25 10:00 02/05/25 10:40 10 MG Chlorhexidine Gluconate 15 ml Q12HR MT 02/05/25 10:00 02/06/25 00:13 15 ML Baclofen 10 mg Q8HR GT 02/05/25 06:00 02/05/25 15:21 10 MG Levetiracetam 100 ml @ 400 mls/hr BID IV 02/05/25 23:00 02/07/25 08:23 400 MLS/HR Amino Acids 0 ml @ 0 mls/hr PER PHARMACY IV 02/06/25 15:30 Sodium Chloride 1,000 ml @ 75 mls/hr [id number] IV 02/06/25 15:30 02/06/25 17:25 75 MLS/HR Amino Acids/ Electrolytes/ Dextrose 1,000 ml @ 41 mls/hr DAILY@2200 IV 02/06/25 22:00 02/07/25 01:04 41 MLS/HR Diagnostic Test (Pha) 1 strip Q6HR 02/07/25 00:00 02/07/25 11:39 1 STRIP Insulin Human Regular FOLLOW SLIDING SCALE Q6HR SC 02/07/25 00:00 Dextrose 50 ml UD IV 02/06/25 22:00 Cefepime HCl 50 ml @ 12.5 mls/hr Q8H IV 02/07/25 09:30 02/07/25 08:51 12.5 MLS/HR Doxycycline Hyclate 100 ml @ 50 mls/hr Q12H IV 02/07/25 18:00 Enteral Nutritional Formula 1,000 ml 75ML/HR GT 02/07/25 12:45 Patient Own Medication 1 BID GT 02/07/25 17:00 UNV objective General Appearance: Alert, tremors Lungs: Clear to auscultation, Normal air movement Cardiovascular: Regular rate, Normal S1, Normal S2 Abdomen: Normal bowel sounds, Soft, No tenderness Extremities: No edema laboratory and microbiology Laboratory Tests 02/07/25 07:08 02/06/25 04:36 Test 02/07/25 07:08 Range/Units Serum Glucose 97 74-106 mg/dL Problems(with codes): (1) Acute hypoxic respiratory failure (2) Elevated liver enzymes (3) Sepsis (4) Generalized weakness (5) Sepsis, unspecified organism (6) Pneumonia, unspecified organism (7) Pneumonia (8) Status post seizure Prognosis Plan Okay to resume gastrostomy tube feedings on the same schedule prior to admission Continue local G-tube care by cleaning tube twice a day with dilute hydrogen peroxide and rotating it twice a day Keep the balloon of the gastrostomy tube inflated Plan discussed with: Other (Nurse and Dr Jaramillo and Dr Gupta) SHANA GUPTA MD Feb 07, 2025 13:35
[2025-02-07] MEDS: Jevity 1.2 Cal/Fiber 1 Liter GT SCH (17:40)
[2025-02-07] MEDS ORDERED: DOXYCYCLINE 100MG/100ML 100 ML IV SCH (18:00)
[2025-02-07] MEDS: LACOSAMIDE 50 MG TAB GT SCH (18:39)
[2025-02-08] VITALS (19 sets, daily range): BP systolic 124–158; BP diastolic 63–78; PULSE 80–100; RESP 16–22; TEMP 97.8–99.4; O2SAT 94–100
[2025-02-08] MEDS: DOXYCYCLINE 100MG/100ML 100 ML IV SCH (00:04)
[2025-02-08 07:43] LABS: Albumin 3.6 g/dL (3.2-4.8); Alkaline Phosphatase 99 U/L (46-116); Anion Gap 11 (5-15); BUN/Creatinine Ratio 23.2 (10.0-20.0); Blood Urea Nitrogen 13 mg/dL (9-23); Carbon Dioxide 23 mmol/L (20-31); Chloride 106 mmol/L (98-107); Glucose 104 mg/dL (74-106); Magnesium 2.0 mg/dL (1.6-2.6); Sodium 140 mmol/L (136-145); Total Protein 6.5 g/dL (5.7-8.2)
[2025-02-08 07:44] LABS: Bilirubin, Total 0.7 mg/dL (0.2-1.0)
[2025-02-08 07:49] LABS: Alanine Aminotransferase 96 U/L (7-40); Calcium 8.4 mg/dL (8.7-10.4); Potassium 3.1 mmol/L (3.5-5.1)
[2025-02-08] MEDS: POTASSIUM EFFERVESENT TAB 25 MEQ GT ONE (09:30)
--- NOTE | 2025-02-08 11:29 | DVHDS2 ---
Discharge Summary Date of Admission Feb 04, 2025 at 21:59 Date of Discharge: Feb 08, 2025 Labs/Diagnostic Data: Laboratory Results Test 02/08/25 06:25 02/08/25 05:41 02/07/25 07:08 02/06/25 04:36 POC Glucose 126 mg/dl (70-106) Sodium Level 140 mmol/L (136-145) Potassium Level 3.1 mmol/L (3.5-5.1) Chloride Level 106 mmol/L (98-107) Carbon Dioxide Level 23 mmol/L (20-31) Anion Gap 11 (5-15) Blood Urea Nitrogen 13 mg/dL (9-23) Creatinine 0.56 mg/dL (0.700-1.30) Glomerular Filtration Rate Calc 121 mL/min (>90) BUN/Creatinine Ratio 23.2 (10.0-20.0) Serum Glucose 104 mg/dL (74-106) Calcium Level 8.4 mg/dL (8.7-10.4) Phosphorus Level 2.6 mg/dL (2.4-5.1) Magnesium Level 2.0 mg/dL (1.6-2.6) Total Bilirubin 0.7 mg/dL (0.2-1.0) Aspartate Amino Transferase (AST) 47 U/L (13-40) Alanine Aminotransferase (ALT) 96 U/L (7-40) Alkaline Phosphatase 99 U/L (46-116) Total Protein 6.5 g/dL (5.7-8.2) Albumin 3.6 g/dL (3.2-4.8) Triglycerides Level 73 mg/dL (< 150) White Blood Count 9.4 10^3/uL (4.4-10.8) Red Blood Count 5.48 10^6/uL (4.5-5.90) Hemoglobin 15.6 g/dL (13.5-17.5) Hematocrit 47.2 % (41.0-53.0) Mean Corpuscular Volume 86.0 fL (80.0-100.0) Mean Corpuscular Hemoglobin 28.5 pg (28.0-32.0) Mean Corpuscular Hemoglobin Concent 33.1 g/dL (32.0-36.0) Red Cell Distribution Width 15.1 % (11.8-14.3) Platelet Count 217 10^3/uL (140-450) Mean Platelet Volume 8.9 fL (6.9-10.8) Neutrophils (%) (Auto) 68.6 % (37.0-80.0) Lymphocytes (%) (Auto) 18.1 % (10.0-50.0) Monocytes (%) (Auto) 11.5 % (0.0-12.0) Eosinophils (%) (Auto) 1.1 % (0.0-7.0) Basophils (%) (Auto) 0.7 % (0.0-2.0) Neutrophils # (Auto) 6.4 10 ^3/uL (1.6-8.6) Lymphocytes # (Auto) 1.7 10 ^3/uL (0.4-5.4) Monocytes # (Auto) 1.1 10 ^3/uL (0-1.3) Eosinophils # (Auto) 0.1 10 ^3/uL (0-0.8) Basophils # (Auto) 0.1 10 ^3/uL (0-0.2) Nucleated Red Blood Cells 0.1 % Test 02/05/25 02:30 02/04/25 15:42 Urine Color Yellow (Yellow) Urine Clarity Turbid (Clear) Urine pH 7.5 (5.0-9.0) Urine Specific [place] 1.017 (1.001-1.035) Urine Protein Negative (Negative) Urine Ketones Negative (Negative) Urine Blood Negative /uL (Negative) Urine Nitrite Negative (Negative) Urine Bilirubin Negative (Negative) Urine Urobilinogen Normal mg/dL (Negative) Urine Leukocyte Esterase Negative /uL (Negative) Urine RBC None seen /hpf (0 - 3) Urine Microscopic WBC < 1 /HPF (0-3) Urine Squamous Epithelial Cells None seen /hpf (<5) Urine Amorphous Crystals Few /hpf (None Seen) Urine Bacteria None seen /hpf (None Seen) Urine Glucose Normal mg/dL (Normal) Prothrombin Time 10.7 sec (9.3-11.8) Prothrombin Time INR 1.01 (0.9-1.15) Activated Partial Thromboplast Time 29.0 SEC (24.5-34.5) Lactic Acid Level 1.0 mmol/L (0.4-2.0) Other Laboratory Tests 02/08/25 05:41 02/06/25 04:36 Brief Hx & Hospital Course: Final diagnoses: G-tube site infection Cellulitis of the abdominal wall GT tube malposition Transaminitis History of traumatic brain injury Quadriplegia History of seizures History of endocarditis Cholelithiasis Nonobstructive right intrarenal calculus 49-year-old male was admitted for malfunctioned G-tube with leaking and surrounding skin infection Examination showed malpositioning of the tube and therefore GI and surgery consultations were called, the G-tube was repositioned and the balloon inflated and the G-tube was functioning again Feeding was resumed GI and surgery recommended no need for replacement The patient is stable for discharge Resume the home medications Condition at Discharge: Stable Final Diagnosis/Problems List G-tube site infection Cellulitis of the abdominal wall GT tube malposition Transaminitis History of traumatic brain injury Quadriplegia History of seizures History of endocarditis Cholelithiasis Nonobstructive right intrarenal calculus Discharge Disposition: Home SNF Discharge Will this Physician continue t: No Discharge Instruct/Medications Diet: See Comment Diet comment: tube feeding Activity: No Restrictions, As Tolerated Follow Up/Referral: PCP as scheduled Medications: same home meds Scheduled Amino Acids-Protein Hydrolysat (Pro-Stat), 30 ML OR DAILY, (Reported) Ascorbic Acid (Vitamin C Tablet), 1 TAB GT BID, (Reported) Baclofen (Baclofen), 20 MG GT Q6HR, (Reported) Chlorhexidine Gluconate (Mouth (Chlorhexidine Oral Rinse), 15 ML MT Q12HR, (Reported) Fluconazole (Fluconazole), 1 TAB PO DAILY Fluconazole (Fluconazole), 1 TAB PO DAILY Lacosamide (Lacosamide), 15 ML GT BID, (Reported) Lacosamide (Lacosamide), 10 MG PO BID, (Reported) Levetiracetam (Keppra), 10 LIQ PO BID, (Reported) Loratadine (Claritin), 1 TAB PO DAILY, (Reported) Multiple Vitamin (Multivitamins), 1 TAB GT DAILY, (Reported) Polyethylene Glycol 3350 (Miralax), 17 GM PO 3XW, (Reported) Potassium Chloride (Potassium Chloride Cr), 20 MEQ GT DAILY, (Reported) Zinc Sulfate (Zinc Sulfate), 50 MG GT DAILY, (Reported) Scheduled PRN Acetylcysteine (Acetylcysteine), 1 ML IN Q4HP PRN for thick secretions, (Reported) Diphenhydramine Hcl (Benadryl Allergy), 25 MG PO Q8HPRN PRN for allergies, (Reported) Glycopyrrolate ([place]), 1 MG PO Q8HPRN PRN for increased secretions, (Reported) Ipratropium-Albuterol (Ipratropium [place]/Albut), 1 TRACE IN Q6HPRN PRN for respiratory failure, (Reported) Levalbuterol HCl (Levalbuterol), 1.25 MG IN Q4HP PRN for WHEEZING, (Reported) Lorazepam (Ativan Tablet), 0.5 MG GT Q6HPRN PRN for SHORTNESS OF BREATH, (Reported) Miscellaneous Medications Nutritional Supplements (Jevity 1.5 [place]), 60 ML GT, (Reported) Discharge Statement: "Patient was advised to return to the ER or call 911 if any headaches, dizziness, shortness of breath, chest pain, abdominal pain, bleeding, fevers, or worsening of medical condition. Patient was counseled about treatment plan, medications, possible side effects, patientverbalized understanding. All questions were answered to the best of my ability. This discharge took greater then 30 minutes in planning, reviewing documentation, counseling the patient, and discussing with other team members." ASSESSMENT ASSESSMENT Assessment G-tube site infection Cellulitis of the abdominal wall GT tube malposition Transaminitis History of traumatic brain injury Quadriplegia History of seizures History of endocarditis Cholelithiasis Nonobstructive right intrarenal calculus Date of Service: Feb 08, 2025 Billing Provider: KENDAL SMALL MD Common Visit Codes: 50169-AIE/OBS DISCH DAY >30min KENDAL SMALL MD Feb 08, 2025 11:29
--- NOTE | 2025-02-08 13:15 | DVHPN2 ---
Progress Note - Dictate Date Seen: Feb 08, 2025 Medical Necessity Reason Pt with a Central, PICC or Fol: Yes Subjective Patient is seen at bedside somewhat lethargic Patient is having tremors and shakes G-tube site appears to be clean with no significant discharge G-tube was replaced and balloon was inflated and gastrostomy placement is adequate Patient G-tube is regurgitating upon patient expectorant efforts. More than 30mL of residual noted. Microbiology Maris called to notify patient wound culture came back positive for MRSA. Patient is running low-grade fever 99.4 axillary. Upon forceful expectoration, patient Trach tube dislodged, RT paged stat and corrected. vital signs Vital Sign Date Time Temp Pulse Resp B/P (MAP) Pulse Ox O2 Delivery O2 Flow Rate FiO2 02/08/25 09:59 87 16 97 02/08/25 09:00 98.8 150/78 (102) 98.8 02/08/25 08:00 Trach Collar 6 N/A Total Intake and Output 02/07/25 02/07/25 02/08/25 15:00 23:00 07:00 Intake Total 50 ml 0 ml 150 ml Balance 50 ml 0 ml 150 ml medications Current Medications Medications Dose Ordered Sig/Ata Route Start Time Stop Time Status Last Admin Dose Admin Ipratropium [place] 0.5 mg Q4HPRN PRN NEB 02/05/25 02:00 02/08/25 09:59 0.5 MG Albuterol 2.5 mg Q4HPRN PRN NEB 02/05/25 02:00 02/08/25 09:59 2.5 MG Acetylcysteine 100 mg Q4HR NEB 02/05/25 02:00 02/08/25 09:59 100 MG Amino Acid Protein 30 ml DAILY PO 02/05/25 10:00 Zinc Sulfate 220 mg DAILY PO 02/05/25 10:00 02/08/25 10:25 220 MG Loratadine 10 mg DAILY GT 02/05/25 10:00 02/08/25 10:25 10 MG Chlorhexidine Gluconate 15 ml Q12HR MT 02/05/25 10:00 02/08/25 10:21 15 ML Baclofen 10 mg Q8HR GT 02/05/25 06:00 02/08/25 06:10 10 MG Levetiracetam 100 ml @ 400 mls/hr BID IV 02/05/25 23:00 02/08/25 10:18 400 MLS/HR Amino Acids 0 ml @ 0 mls/hr PER PHARMACY IV 02/06/25 15:30 Sodium Chloride 1,000 ml @ 75 mls/hr [id number] IV 02/06/25 15:30 02/06/25 17:25 75 MLS/HR Amino Acids/ Electrolytes/ Dextrose 1,000 ml @ 41 mls/hr DAILY@2200 IV 02/06/25 22:00 02/08/25 00:04 41 MLS/HR Diagnostic Test (Pha) 1 strip Q6HR 02/07/25 00:00 02/08/25 12:02 1 STRIP Insulin Human Regular FOLLOW SLIDING SCALE Q6HR SC 02/07/25 00:00 Dextrose 50 ml UD IV 02/06/25 22:00 Cefepime HCl 50 ml @ 12.5 mls/hr Q8H IV 02/07/25 09:30 02/08/25 10:50 12.5 MLS/HR Enteral Nutritional Formula 1,000 ml 75ML/HR GT 02/07/25 12:45 02/07/25 17:40 1,000 ML Lacosamide 150 mg BID@0700,1900 GT 02/07/25 19:00 02/08/25 06:10 150 MG Potassium Chloride 100 ml @ 50 mls/hr Q2H IV 02/08/25 10:45 02/08/25 14:44 objective General Appearance: Alert, tremors Lungs: Clear to auscultation, Normal air movement Cardiovascular: Regular rate, Normal S1, Normal S2 Abdomen: Normal bowel sounds, Soft, No tenderness Extremities: No edema laboratory and microbiology Laboratory Tests 02/08/25 05:41 02/06/25 04:36 Test 02/08/25 05:41 Range/Units Serum Glucose 104 74-106 mg/dL Problems(with codes): (1) Malfunction of gastrostomy tube (2) Status post seizure (3) Sepsis, unspecified organism (4) Acute hypoxic respiratory failure (5) Elevated liver enzymes (6) Generalized weakness Prognosis Plan Continue gastrostomy tube feedings for now Re-evaluate in a.m. to see if the gastrostomy tube needs to be replaced or the phalange needs to be placed closer to the skin Continue IV antibiotics Continue respiratory care Overall prognosis remains guarded Dietary Evaluation Review Comments: 1) Initiate Jevity 1.2 @ 75 mL/hr goal rate as tolerated. Flush with 150 mL free H2O Q6H. Goal rate will provide 2160 kcals, 100g Pro, and 2053 mL free H2O (including TF flushes) per 24 hrs. Goal rate will meet ~99% estimated daily energy needs and 100% estimated daily protein needs 2) Initiate Vitamin C @ 500 mg bid for 7 days 3) Advance to regular diet when medically feasible, pending ST approval 4) Follow-up with neurology 5) Continue to monitor I&O, labs, and skin integrity Expected Outcomes/Goals: 1) EN regimen to meet at least 75% of estimated daily needs 2) labs and wound to improve 3) f/u in 2-3 days Plan discussed with: Other (Dr Aldair Gupta) SHANA GUPTA MD Feb 08, 2025 13:15
[2025-02-08] MEDS: POTASSIUM PHOSPHATE 22 MEQ in SODIUM CHL 0.9% 100 ML IV ONE (14:45)
[2025-02-08] MEDS ORDERED: VANCOMYCIN PER PHARMACY 0 MG IV SCH (15:30)
[2025-02-08] MEDS: VANCOMYCIN 1GM/250ML KIT 250 ML IV ONE (17:44)
[2025-02-08] MEDS: POTASSIUM CHL 20MEQ/100ML 100 ML IV SCH (20:46)
[2025-02-09] VITALS (20 sets, daily range): BP systolic 114–145; BP diastolic 63–76; PULSE 74–106; RESP 18–20; TEMP 97.6–99.5; O2SAT 96–100
[2025-02-09] MEDS: VANCOMYCIN 1GM/250ML KIT 250 ML IV SCH ×2 (05:33→18:51)
[2025-02-09 07:23] LABS: Albumin 3.4 g/dL (3.2-4.8); Alkaline Phosphatase 92 U/L (46-116); Anion Gap 11 (5-15); BUN/Creatinine Ratio 16.7 (10.0-20.0); Carbon Dioxide 24 mmol/L (20-31); Chloride 106 mmol/L (98-107); Glucose 81 mg/dL (74-106); Magnesium 1.9 mg/dL (1.6-2.6); Sodium 141 mmol/L (136-145); Total Protein 6.2 g/dL (5.7-8.2)
[2025-02-09 07:24] LABS: Bilirubin, Total 0.8 mg/dL (0.2-1.0)
[2025-02-09 07:27] LABS: Alanine Aminotransferase 83 U/L (7-40); Blood Urea Nitrogen 8 mg/dL (9-23); Calcium 8.3 mg/dL (8.7-10.4); Potassium 3.4 mmol/L (3.5-5.1)
[2025-02-09 07:31] LABS: Hematocrit 41.7 % (41.0-53.0); Hemoglobin 14.3 g/dL (13.5-17.5); Mean Corpuscular Hemoglobin 29.2 pg (28.0-32.0); Mean Corpuscular Volume 85.4 fL (80.0-100.0); Nucleated Red Blood Cells % 0.1 %
[2025-02-09] MEDS: CEFEPIME 1GM/50ML 50 ML IV SCH (08:00)
--- NOTE | 2025-02-09 09:14 | DVHPN2 ---
Subjective The patient is still having low-grade fever The culture from the surgical site at the G-tube insertion showed MRSA We are planning on discharge the patient yesterday however in the afternoon the patient had low-grade fever and more discharge from around the surgical site of the G-tube and therefore the discharge was held and the culture came back to be MRSA Changes from previous H/P or p: Changes Objective Vitals Vital Signs Date Time Temp Pulse Resp B/P (MAP) Pulse Ox O2 Delivery O2 Flow Rate FiO2 02/09/25 09:10 97 T-piece 6 28 28 02/09/25 09:10 106 20 02/09/25 05:00 98.0 124/63 (83) 98.0 Intake/Output Intake and Output 02/09/25 07:00 Intake Total 1008 ml Output Total 0 ml Balance 1008 ml Intake Oral 0 ml IV Total 150 ml Tube Feeding 858 ml Output Stool Total 0 ml # Voids 8 General Appearance: Alert, Other Lungs: Clear to auscultation, Normal air movement Cardiovascular: Regular rate, Normal S1, Normal S2 Abdomen: Normal bowel sounds, Soft, No tenderness Extremities: No edema Medications Current Medications Medications Dose Ordered Sig/Ata Route Start Time Stop Time Status Last Admin Dose Admin Ipratropium [place] 0.5 mg Q4HPRN PRN NEB 02/05/25 02:00 02/09/25 09:09 0.5 MG Albuterol 2.5 mg Q4HPRN PRN NEB 02/05/25 02:00 02/09/25 09:09 2.5 MG Acetylcysteine 100 mg Q4HR NEB 02/05/25 02:00 02/09/25 09:10 100 MG Amino Acid Protein 30 ml DAILY PO 02/05/25 10:00 Zinc Sulfate 220 mg DAILY PO 02/05/25 10:00 02/08/25 10:25 220 MG Loratadine 10 mg DAILY GT 02/05/25 10:00 02/08/25 10:25 10 MG Chlorhexidine Gluconate 15 ml Q12HR MT 02/05/25 10:00 02/08/25 10:21 15 ML Baclofen 10 mg Q8HR GT 02/05/25 06:00 02/08/25 06:10 10 MG Levetiracetam 100 ml @ 400 mls/hr BID IV 02/05/25 23:00 02/08/25 22:37 400 MLS/HR Amino Acids 0 ml @ 0 mls/hr PER PHARMACY IV 02/06/25 15:30 Sodium Chloride 1,000 ml @ 75 mls/hr [id number] IV 02/06/25 15:30 02/06/25 17:25 75 MLS/HR Amino Acids/ Electrolytes/ Dextrose 1,000 ml @ 41 mls/hr DAILY@2200 IV 02/06/25 22:00 02/08/25 00:04 41 MLS/HR Diagnostic Test (Pha) 1 strip Q6HR 02/07/25 00:00 02/09/25 05:46 1 STRIP Insulin Human Regular FOLLOW SLIDING SCALE Q6HR SC 02/07/25 00:00 Dextrose 50 ml UD IV 02/06/25 22:00 Cefepime HCl 50 ml @ 12.5 mls/hr Q8H IV 02/07/25 09:30 02/09/25 08:16 12.5 MLS/HR Enteral Nutritional Formula 1,000 ml 75ML/HR GT 02/07/25 12:45 02/07/25 17:40 1,000 ML Lacosamide 150 mg BID@0700,1900 GT 02/07/25 19:00 02/08/25 06:10 150 MG Vancomycin HCl 0 ml @ 0 mls/hr UD IV 02/08/25 15:30 Vancomycin HCl 250 ml @ 200 mls/hr Q8H IV 02/09/25 02:00 02/09/25 05:33 200 MLS/HR Laboratory Results Laboratory Tests 02/09/25 05:55 Chemistry Test 02/09/25 05:55 Albumin 3.4 g/dL (3.2-4.8) Calcium Level 8.3 mg/dL (8.7-10.4) L Magnesium Level 1.9 mg/dL (1.6-2.6) Phosphorus Level 2.7 mg/dL (2.4-5.1) Total Protein 6.2 g/dL (5.7-8.2) LFT Test 02/09/25 05:55 Alanine Aminotransferase (ALT) 83 U/L (7-40) H Alkaline Phosphatase 92 U/L (46-116) Aspartate Amino Transferase (AST) 45 U/L (13-40) H Total Bilirubin 0.8 mg/dL (0.2-1.0) Urinalysis Test 02/05/25 02:30 Urine Color Yellow (Yellow) Urine Clarity Turbid (Clear) H Urine pH 7.5 (5.0-9.0) Urine Specific [place] 1.017 (1.001-1.035) Urine Protein Negative (Negative) Urine Ketones Negative (Negative) Urine Blood Negative /uL (Negative) Urine Nitrite Negative (Negative) Urine Bilirubin Negative (Negative) Urine Urobilinogen Normal mg/dL (Negative) Urine Leukocyte Esterase Negative /uL (Negative) Urine RBC None seen /hpf (0 - 3) Urine Microscopic WBC < 1 /HPF (0-3) Urine Squamous Epithelial Cells None seen /hpf (<5) Urine Amorphous Crystals Few /hpf (None Seen) Urine Bacteria None seen /hpf (None Seen) Urine Glucose Normal mg/dL (Normal) Microbiology Microbiology Date/Time Source Procedure Growth Status 02/05/25 19:04 Abdomen Gram Stain - Final Resulted 02/05/25 19:04 Wound Culture - Preliminary Methicillin Resistant S.aureus Resulted 02/04/25 15:42 Blood Blood Culture - Preliminary NO GROWTH AFTER 72 HOURS OF INCUBATION. Resulted Assessment/Plan Assessment/Plan G-tube site infection Cellulitis of the abdominal wall GT tube malposition Transaminitis History of traumatic brain injury Quadriplegia History of seizures History of endocarditis Cholelithiasis Nonobstructive right intrarenal calculus Plan Broad-spectrum antibiotics: Cefepime and doxycycline GI consult Keppra Monitor closely Discussed with the mother at the bedside 02/06/2025: G-tube replacement today IV antibiotics Continue Keppra Monitor closely 02/07/2025: Resume the home medications Continue IV antibiotics GI recommended to resume tube feeding 02/09/2025: Continue IV antibiotics meropenem and vancomycin GI consultation in progress for possible G-tube replacement NPO IV nutrition for now Home medications include Keppra and lacosamide Discussed with the mother at the bedside Monitor closely Plan discussed with: Patient My Orders Orders - KENDAL SMALL MD Procedure Category Date Status Time Vancomycin Per [facility] 02/08/25 In Process Pharmacy Protoc 15:00 Vancomycin Per [facility]A 02/08/25 In Process Pharmacy 15:30 Precautions: Contact [facility] 02/08/25 In Process 16:25 Communication Order ORDERS 02/08/25 Transmitted 16:25 Vancomycin 1gm/250ml PH[facility] 02/09/25 In Process Kit 02:00 Vancomycin Per [facility] 02/09/25 In Process Pharmacy Protoc 18:00 Vancomycin,Trough LAB 02/09/25 Logged 17:00 Insert Midline ORDERS 02/09/25 Transmitted 08:54 Insert Midline ORDERS 02/09/25 Transmitted 08:54 Initiate Vte [facility] 02/09/25 In Process Prophylaxis 08:56 Date of Service: Feb 09, 2025 Billing Provider: KENDAL SMALL MD Common Visit Codes: [id number] INP/OBS CARE(HIGH) KENDAL SMALL MD Feb 09, 2025 09:14
[2025-02-09] MEDS ORDERED: POTASSIUM CHL 20MEQ/100ML 100 ML IV SCH (09:15)
[2025-02-09 15:46] LABS: INR 1.07 (0.9-1.15); Prothrombin Time 11.3 sec (9.3-11.8)
[2025-02-09] MEDS: POTASSIUM PHOSPHATE 44 MEQ in D5W 5% 250 ML IV ONE (15:51)
--- NOTE | 2025-02-09 17:14 | DVHPN2 ---
Progress Note Date Seen: Feb 09, 2025 Medical Necessity Reason Pt with a Central, PICC or Fol: Yes Objective vital signs Vital Sign Date Time Temp Pulse Resp B/P (MAP) Pulse Ox O2 Delivery O2 Flow Rate FiO2 02/09/25 13:33 91 20 100 02/09/25 13:17 T-piece 6 28 28 02/09/25 13:00 98.4 140/68 (92) 98.4 Total Intake and Output 02/08/25 02/08/25 02/09/25 15:00 23:00 07:00 Intake Total 1008 ml 0 ml Output Total 0 ml Balance 1008 ml 0 ml 0 ml medications Current Medications Medications Dose Ordered Sig/Ata Route Start Time Stop Time Status Last Admin Dose Admin Ipratropium [place] 0.5 mg Q4HPRN PRN NEB 02/05/25 02:00 02/09/25 13:17 0.5 MG Albuterol 2.5 mg Q4HPRN PRN NEB 02/05/25 02:00 02/09/25 13:17 2.5 MG Acetylcysteine 100 mg Q4HR NEB 02/05/25 02:00 02/09/25 13:17 100 MG Amino Acid Protein 30 ml DAILY PO 02/05/25 10:00 Zinc Sulfate 220 mg DAILY PO 02/05/25 10:00 02/08/25 10:25 220 MG Loratadine 10 mg DAILY GT 02/05/25 10:00 02/08/25 10:25 10 MG Chlorhexidine Gluconate 15 ml Q12HR MT 02/05/25 10:00 02/09/25 15:16 15 ML Baclofen 10 mg Q8HR GT 02/05/25 06:00 02/08/25 06:10 10 MG Levetiracetam 100 ml @ 400 mls/hr BID IV 02/05/25 23:00 02/09/25 10:06 400 MLS/HR Amino Acids 0 ml @ 0 mls/hr PER PHARMACY IV 02/06/25 15:30 Sodium Chloride 1,000 ml @ 75 mls/hr [id number] IV 02/06/25 15:30 02/06/25 17:25 75 MLS/HR Amino Acids/ Electrolytes/ Dextrose 1,000 ml @ 41 mls/hr DAILY@2200 IV 02/06/25 22:00 02/08/25 00:04 41 MLS/HR Diagnostic Test (Pha) 1 strip Q6HR 02/07/25 00:00 02/09/25 12:00 1 STRIP Insulin Human Regular FOLLOW SLIDING SCALE Q6HR SC 02/07/25 00:00 Dextrose 50 ml UD IV 02/06/25 22:00 Enteral Nutritional Formula 1,000 ml 75ML/HR GT 02/07/25 12:45 02/07/25 17:40 1,000 ML Lacosamide 150 mg BID@0700,1900 GT 02/07/25 19:00 02/08/25 06:10 150 MG Vancomycin HCl 0 ml @ 0 mls/hr UD IV 02/08/25 15:30 Cefepime HCl 50 ml @ 12.5 mls/hr Q8H IV 02/09/25 08:00 02/09/25 15:50 12.5 MLS/HR Vancomycin HCl 250 ml @ 200 mls/hr Q8H IV 02/10/25 13:30 laboratory and microbiology Laboratory Tests 02/09/25 05:55 Test 02/09/25 05:55 Range/Units Serum Glucose 81 74-106 mg/dL Microbiology Date/Time Source Procedure Growth Status 02/05/25 19:04 Abdomen Gram Stain - Final Complete 02/05/25 19:04 Wound Culture - Final Methicillin Resistant S.aureus Proteus mirabilis Complete 02/04/25 15:42 Blood Blood Culture - Final NO GROWTH AFTER 5 DAYS OF INCUBATION. Complete Problem List/Assessment/Plan Problem List/Assessment/Plan AFEBRILE VSS ABD SOFT G TUBE MALFUNCTION REPLACE G TUBE 22FR AT BEDSIDE NURSE AT BEDSIDE NO COMPLICATIONS GASTROGRAFIN STUDY UGI FOR TUBE PLACEMENT Plan discussed with: Other Dietary Evaluation Review Comments: 1) Initiate Jevity 1.2 @ 75 mL/hr goal rate as tolerated. Flush with 150 mL free H2O Q6H. Goal rate will provide 2160 kcals, 100g Pro, and 2053 mL free H2O (including TF flushes) per 24 hrs. Goal rate will meet ~99% estimated daily energy needs and 100% estimated daily protein needs 2) Initiate Vitamin C @ 500 mg bid for 7 days 3) Advance to regular diet when medically feasible, pending ST approval 4) Follow-up with neurology 5) Continue to monitor I&O, labs, and skin integrity Expected Outcomes/Goals: 1) EN regimen to meet at least 75% of estimated daily needs 2) labs and wound to improve 3) f/u in 2-3 days MITZI HODGE MD Feb 09, 2025 17:13
--- NOTE | 2025-02-09 17:20 | DVHPN2 ---
Progress Note Date Seen: Feb 09, 2025 Resident Creating Document: ANKIT JEFFRIES RESIDENT Medical Necessity Reason Pt with a Central, PICC or Fol: Yes Subjective Review of Systems Patient seen and examined at bedside We will continue Clinimix once PICC line is placed Last bowel movement on 02/07/25 Objective vital signs Vital Sign Date Time Temp Pulse Resp B/P (MAP) Pulse Ox O2 Delivery O2 Flow Rate FiO2 02/09/25 13:33 91 20 100 02/09/25 13:17 T-piece 6 28 28 02/09/25 13:00 98.4 140/68 (92) 98.4 Total Intake and Output 02/08/25 02/08/25 02/09/25 15:00 23:00 07:00 Intake Total 1008 ml 0 ml Output Total 0 ml Balance 1008 ml 0 ml 0 ml medications Current Medications Medications Dose Ordered Sig/Ata Route Start Time Stop Time Status Last Admin Dose Admin Ipratropium [place] 0.5 mg Q4HPRN PRN NEB 02/05/25 02:00 02/09/25 13:17 0.5 MG Albuterol 2.5 mg Q4HPRN PRN NEB 02/05/25 02:00 02/09/25 13:17 2.5 MG Acetylcysteine 100 mg Q4HR NEB 02/05/25 02:00 02/09/25 13:17 100 MG Amino Acid Protein 30 ml DAILY PO 02/05/25 10:00 Zinc Sulfate 220 mg DAILY PO 02/05/25 10:00 02/08/25 10:25 220 MG Loratadine 10 mg DAILY GT 02/05/25 10:00 02/08/25 10:25 10 MG Chlorhexidine Gluconate 15 ml Q12HR MT 02/05/25 10:00 02/09/25 15:16 15 ML Baclofen 10 mg Q8HR GT 02/05/25 06:00 02/08/25 06:10 10 MG Levetiracetam 100 ml @ 400 mls/hr BID IV 02/05/25 23:00 02/09/25 10:06 400 MLS/HR Amino Acids 0 ml @ 0 mls/hr PER PHARMACY IV 02/06/25 15:30 Sodium Chloride 1,000 ml @ 75 mls/hr [id number] IV 02/06/25 15:30 02/06/25 17:25 75 MLS/HR Amino Acids/ Electrolytes/ Dextrose 1,000 ml @ 41 mls/hr DAILY@2200 IV 02/06/25 22:00 02/08/25 00:04 41 MLS/HR Diagnostic Test (Pha) 1 strip Q6HR 02/07/25 00:00 02/09/25 12:00 1 STRIP Insulin Human Regular FOLLOW SLIDING SCALE Q6HR SC 02/07/25 00:00 Dextrose 50 ml UD IV 02/06/25 22:00 Enteral Nutritional Formula 1,000 ml 75ML/HR GT 02/07/25 12:45 02/07/25 17:40 1,000 ML Lacosamide 150 mg BID@0700,1900 GT 02/07/25 19:00 02/08/25 06:10 150 MG Vancomycin HCl 0 ml @ 0 mls/hr UD IV 02/08/25 15:30 Cefepime HCl 50 ml @ 12.5 mls/hr Q8H IV 02/09/25 08:00 02/09/25 15:50 12.5 MLS/HR Vancomycin HCl 250 ml @ 200 mls/hr Q8H IV 02/10/25 13:30 Examination General Appearance: Cooperative. Well developed. Pulmonary/Respiratory: Equal bilateral air entry Cardiovascular/Chest: Regular rate and rhythm. No murmurs. No JVD. Abdominal Exam: Peg tube noted, minimal redness around G-tube entry site with minimal to scant drainage. Ankle Exam: Negative ankle edema Skin Exam: Normal inspection. Normal color. Warm. Dry laboratory and microbiology Laboratory Tests 02/09/25 05:55 Test 02/09/25 05:55 Range/Units Serum Glucose 81 74-106 mg/dL Microbiology Date/Time Source Procedure Growth Status 02/05/25 19:04 Abdomen Gram Stain - Final Complete 02/05/25 19:04 Wound Culture - Final Methicillin Resistant S.aureus Proteus mirabilis Complete 02/04/25 15:42 Blood Blood Culture - Final NO GROWTH AFTER 5 DAYS OF INCUBATION. Complete Labs and/or images reviewed: Labs reviewed by me, Image(s) reviewed by me Problem List/Assessment/Plan Problem List/Assessment/Plan Dislodgement of G-tube G-tube site cellulitis Sepsis due to above Generalized weakness Abnormal LFTs Cholelithiasis Probable pneumonia Plan: Re-evaluation by surgery today for gastrostomy tube management/replacement IV hydration Continue antibiotics Right upper quadrant ultrasound IV Clinimix Keep NPO Thank you so much for the opportunity to consult on your patient. GI team will follow the patient. In case of any questions or concerns please feel free to reach out. Plan discussed with Dr. Gupta Plan discussed with: Other (Mother, RN) My Orders My Orders Orders - ANKIT JEFFRIES RESIDENT Procedure Category Date Status Time Phosphorus LAB 02/10/25 Verified 04:00 Clinimix Per Pharmacy [facility] 02/09/25 In Process 22:00 Potassium Phosphate PHA 02/09/25 In Process 09:30 Dietary Evaluation Review Comments: 1) Initiate Jevity 1.2 @ 75 mL/hr goal rate as tolerated. Flush with 150 mL free H2O Q6H. Goal rate will provide 2160 kcals, 100g Pro, and 2053 mL free H2O (including TF flushes) per 24 hrs. Goal rate will meet ~99% estimated daily energy needs and 100% estimated daily protein needs 2) Initiate Vitamin C @ 500 mg bid for 7 days 3) Advance to regular diet when medically feasible, pending ST approval 4) Follow-up with neurology 5) Continue to monitor I&O, labs, and skin integrity Expected Outcomes/Goals: 1) EN regimen to meet at least 75% of estimated daily needs 2) labs and wound to improve 3) f/u in 2-3 days ANKIT JEFFRIES RESIDENT Feb 09, 2025 17:20
[2025-02-09] MEDS: SODIUM CHLOR 0.9% PF (SALINE LOCK) 10ML VIAL/SYR IV SCH (21:34)
--- NOTE | 2025-02-09 23:37 | DVH ---
Exam: XY KUB ABDOMEN SINGLE VIEW Indication: gastrostomy tube placement Comparison: XY KUB ABDOMEN SINGLE VIEW on DOS: 02/06/25, US ABDOMEN LIMITED on DOS: 02/06/25, CT CT AB PEL WO CON-NO ORAL OR IV on DOS: 02/05/25 Technique: 3 radiographic views of the abdomen. Findings: Percutaneous gastrostomy tube noted at approximate midline. Subsequent contrast opacification of the tube results in intraluminal gastric opacification. Nonobstructive bowel gas pattern noted. There is no definite evidence for pneumoperitoneum. No abnormal calcifications noted. Impression: 1. Intraluminal position of percutaneous gastrostomy tube. 2. Nonobstructive bowel gas pattern.
[2025-02-10] VITALS (18 sets, daily range): BP systolic 122–143; BP diastolic 64–83; PULSE 20–105; RESP 18–22; TEMP 97.2–99.5; O2SAT 95–100
[2025-02-10 07:30] LABS: Hematocrit 41.4 % (41.0-53.0); Hemoglobin 14.2 g/dL (13.5-17.5); Mean Corpuscular Hemoglobin 28.8 pg (28.0-32.0); Mean Corpuscular Volume 83.9 fL (80.0-100.0); Nucleated Red Blood Cells % 0.2 %
[2025-02-10 07:38] LABS: Albumin 3.5 g/dL (3.2-4.8); Alkaline Phosphatase 96 U/L (46-116); Anion Gap 11 (5-15); BUN/Creatinine Ratio 11.9 (10.0-20.0); Bilirubin, Total 0.8 mg/dL (0.2-1.0); Carbon Dioxide 25 mmol/L (20-31); Chloride 105 mmol/L (98-107); Magnesium 2.0 mg/dL (1.6-2.6); Sodium 141 mmol/L (136-145); Total Protein 6.4 g/dL (5.7-8.2)
[2025-02-10 07:40] LABS: Potassium 3.2 mmol/L (3.5-5.1)
[2025-02-10 07:41] LABS: Alanine Aminotransferase 86 U/L (7-40); Blood Urea Nitrogen 5 mg/dL (9-23); Calcium 8.5 mg/dL (8.7-10.4); Glucose 70 mg/dL (74-106)
[2025-02-10] MEDS: GASTROGRAFIN 30 ML SOL ONE ×2 (07:48→07:49)
[2025-02-10] MEDS: LIDOCAINE 1% (LOCAL ANESTH.) PF 5ml SDV ID ONE (07:49)
[2025-02-10] MEDS: VANCOMYCIN 1GM/250ML KIT 250 ML IV ONE (07:49)
[2025-02-10] MEDS ORDERED: BACDST PO (09:43)
--- NOTE | 2025-02-10 09:47 | DVHPN2 ---
Subjective No new problems Potassium 3.2 The G-tube was replaced by Dr. Gupta yesterday Changes from previous H/P or p: Changes Objective Vitals Vital Signs Date Time Temp Pulse Resp B/P (MAP) Pulse Ox O2 Delivery O2 Flow Rate FiO2 02/10/25 09:38 98 T-piece 6.0 02/10/25 09:38 79 18 02/10/25 09:38 28 28 02/10/25 05:00 98.9 143/83 (103) 98.9 Intake/Output Intake and Output 02/10/25 07:00 Intake Total 1350 ml Balance 1350 ml Intake Oral 0 ml IV Total 1350 ml # Voids 8 # Bowel Movements 2 General Appearance: Alert, Other Lungs: Clear to auscultation, Normal air movement Cardiovascular: Regular rate, Normal S1, Normal S2 Abdomen: Normal bowel sounds, Soft, No tenderness Extremities: No edema Medications Current Medications Medications Dose Ordered Sig/Ata Route Start Time Stop Time Status Last Admin Dose Admin Ipratropium [place] 0.5 mg Q4HPRN PRN NEB 02/05/25 02:00 02/10/25 09:38 0.5 MG Albuterol 2.5 mg Q4HPRN PRN NEB 02/05/25 02:00 02/10/25 09:38 2.5 MG Acetylcysteine 100 mg Q4HR NEB 02/05/25 02:00 02/10/25 09:38 100 MG Amino Acid Protein 30 ml DAILY PO 02/05/25 10:00 Zinc Sulfate 220 mg DAILY PO 02/05/25 10:00 02/08/25 10:25 220 MG Loratadine 10 mg DAILY GT 02/05/25 10:00 02/08/25 10:25 10 MG Chlorhexidine Gluconate 15 ml Q12HR MT 02/05/25 10:00 02/10/25 09:35 15 ML Baclofen 10 mg Q8HR GT 02/05/25 06:00 02/08/25 06:10 10 MG Levetiracetam 100 ml @ 400 mls/hr BID IV 02/05/25 23:00 02/09/25 21:34 400 MLS/HR Amino Acids 0 ml @ 0 mls/hr PER PHARMACY IV 02/06/25 15:30 Sodium Chloride 1,000 ml @ 75 mls/hr [id number] IV 02/06/25 15:30 02/06/25 17:25 75 MLS/HR Amino Acids/ Electrolytes/ Dextrose 1,000 ml @ 41 mls/hr DAILY@2200 IV 02/06/25 22:00 02/09/25 20:06 41 MLS/HR Diagnostic Test (Pha) 1 strip Q6HR 02/07/25 00:00 02/10/25 05:38 1 STRIP Insulin Human Regular FOLLOW SLIDING SCALE Q6HR SC 02/07/25 00:00 Dextrose 50 ml UD IV 02/06/25 22:00 Enteral Nutritional Formula 1,000 ml 75ML/HR GT 02/07/25 12:45 02/07/25 17:40 1,000 ML Lacosamide 150 mg BID@0700,1900 GT 02/07/25 19:00 02/08/25 06:10 150 MG Vancomycin HCl 0 ml @ 0 mls/hr UD IV 02/08/25 15:30 Cefepime HCl 50 ml @ 12.5 mls/hr Q8H IV 02/09/25 08:00 02/10/25 09:31 12.5 MLS/HR Vancomycin HCl 250 ml @ 200 mls/hr Q8H IV 02/09/25 18:30 02/10/25 02:23 200 MLS/HR Sodium Chloride 10 ml QSHIFT@10,22 IV 02/09/25 22:00 02/10/25 09:30 10 ML Laboratory Results Laboratory Tests 02/10/25 05:42 Chemistry Test 02/10/25 05:42 Albumin 3.5 g/dL (3.2-4.8) Calcium Level 8.5 mg/dL (8.7-10.4) L Magnesium Level 2.0 mg/dL (1.6-2.6) Phosphorus Level 2.8 mg/dL (2.4-5.1) Total Protein 6.4 g/dL (5.7-8.2) Coagulation Test 02/09/25 15:12 Prothrombin Time 11.3 sec (9.3-11.8) Prothrombin Time INR 1.07 (0.9-1.15) LFT Test 02/10/25 05:42 Alanine Aminotransferase (ALT) 86 U/L (7-40) H Alkaline Phosphatase 96 U/L (46-116) Aspartate Amino Transferase (AST) 49 U/L (13-40) H Total Bilirubin 0.8 mg/dL (0.2-1.0) Urinalysis Test 02/05/25 02:30 Urine Color Yellow (Yellow) Urine Clarity Turbid (Clear) H Urine pH 7.5 (5.0-9.0) Urine Specific [place] 1.017 (1.001-1.035) Urine Protein Negative (Negative) Urine Ketones Negative (Negative) Urine Blood Negative /uL (Negative) Urine Nitrite Negative (Negative) Urine Bilirubin Negative (Negative) Urine Urobilinogen Normal mg/dL (Negative) Urine Leukocyte Esterase Negative /uL (Negative) Urine RBC None seen /hpf (0 - 3) Urine Microscopic WBC < 1 /HPF (0-3) Urine Squamous Epithelial Cells None seen /hpf (<5) Urine Amorphous Crystals Few /hpf (None Seen) Urine Bacteria None seen /hpf (None Seen) Urine Glucose Normal mg/dL (Normal) Microbiology Microbiology Date/Time Source Procedure Growth Status 02/05/25 19:04 Abdomen Gram Stain - Final Complete 02/05/25 19:04 Wound Culture - Final Methicillin Resistant S.aureus Proteus mirabilis Complete 02/04/25 15:42 Blood Blood Culture - Final NO GROWTH AFTER 5 DAYS OF INCUBATION. Complete Assessment/Plan Assessment/Plan G-tube site infection Cellulitis of the abdominal wall GT tube malposition Transaminitis History of traumatic brain injury Quadriplegia History of seizures History of endocarditis Cholelithiasis Nonobstructive right intrarenal calculus Plan Broad-spectrum antibiotics: Cefepime and doxycycline GI consult Keppra Monitor closely Discussed with the mother at the bedside 02/06/2025: G-tube replacement today IV antibiotics Continue Keppra Monitor closely 02/07/2025: Resume the home medications Continue IV antibiotics GI recommended to resume tube feeding 02/09/2025: Continue IV antibiotics meropenem and vancomycin GI consultation in progress for possible G-tube replacement NPO IV nutrition for now Home medications include Keppra and lacosamide Discussed with the mother at the bedside Monitor closely 02/10/2025: Discharge the patient home once IV antibiotics are arranged The patient will need a ertapenem 1 g IV daily for 7 days and Bactrim DS twice a day for 7 days He had the G-tube replace yesterday by Dr. Aldair Gupta Resume feeding Resume the home medications Order home health for IV antibiotics Discontinue the PICC line in 1 week Follow up with his primary care physician as soon as possible Plan discussed with: Patient, Other My Orders Orders - KENDAL SMALL MD Procedure Category Date Status Time Vancomycin,Trough LAB 02/10/25 Logged 09:30 Nursing Protocol Picc [facility] 02/09/25 In Process 17:52 Change Dressing Prn [facility] 02/09/25 In Process 17:52 Sodium Chloride Lock PHA 02/09/25 In Process (Saline Lock Ns) 22:00 Do Not Use Picc For [facility] 02/09/25 In Process Blood Cult 17:52 May Draw Blood From [facility] 02/09/25 In Process Picc 17:52 Ok To Use Picc [facility] 02/09/25 In Process 17:52 Change Picc Dressing [facility] 02/09/25 In Process Q7 Days 17:52 * Picc Line Consult CONS 02/09/25 Transmitted 17:52 Vancomycin 1gm/250ml PHA 02/09/25 In Process Kit 18:30 Vancomycin Per [facility] 02/09/25 In Process Pharmacy Protoc 18:41 * Wound Consult CONS 02/10/25 Transmitted * [facility]ward CONS 02/10/25 Verified Consult Date of Service: Feb 10, 2025 Billing Provider: KENDAL SMALL MD Common Visit Codes: [id number] INP/OBS CARE(HIGH) KENDAL SMALL MD Feb 10, 2025 09:47
[2025-02-10] MEDS ORDERED: POTASSIUM CHL 20MEQ/100ML 100 ML IV SCH (10:15)
[2025-02-10] MEDS: VANCOMYCIN 750MG KIT 100 ML IV SCH (11:47)
[2025-02-10] MEDS: POTASSIUM EFFERVESENT TAB 25 MEQ GT ONE (14:39)
--- NOTE | 2025-02-10 16:00 | DVHPN2 ---
Progress Note Date Seen: Feb 10, 2025 Resident Creating Document: ANKIT JEFFRIES RESIDENT Medical Necessity Reason Pt with a Central, PICC or Fol: Yes Subjective Review of Systems Patient seen and examined at bedside Running TF at 10 cc/hour, no residuals. increased to 20 cc/hour No nausea no vomiting Also running Clinimix Objective vital signs Vital Sign Date Time Temp Pulse Resp B/P (MAP) Pulse Ox O2 Delivery O2 Flow Rate FiO2 02/10/25 14:27 87 18 100 02/10/25 14:21 T-piece 6.0 02/10/25 14:21 28 28 02/10/25 13:00 99.5 127/69 (88) 99.5 Total Intake and Output 02/09/25 02/09/25 02/10/25 15:00 23:00 07:00 Intake Total 400 ml 650 ml 300 ml Balance 400 ml 650 ml 300 ml medications Current Medications Medications Dose Ordered Sig/Ata Route Start Time Stop Time Status Last Admin Dose Admin Ipratropium [place] 0.5 mg Q4HPRN PRN NEB 02/05/25 02:00 02/10/25 14:20 0.5 MG Albuterol 2.5 mg Q4HPRN PRN NEB 02/05/25 02:00 02/10/25 14:20 2.5 MG Acetylcysteine 100 mg Q4HR NEB 02/05/25 02:00 02/10/25 14:21 100 MG Amino Acid Protein 30 ml DAILY PO 02/05/25 10:00 Zinc Sulfate 220 mg DAILY PO 02/05/25 10:00 02/08/25 10:25 220 MG Loratadine 10 mg DAILY GT 02/05/25 10:00 02/08/25 10:25 10 MG Chlorhexidine Gluconate 15 ml Q12HR MT 02/05/25 10:00 02/10/25 09:35 15 ML Baclofen 10 mg Q8HR GT 02/05/25 06:00 02/10/25 14:00 10 MG Levetiracetam 100 ml @ 400 mls/hr BID IV 02/05/25 23:00 02/10/25 11:47 400 MLS/HR Amino Acids 0 ml @ 0 mls/hr PER PHARMACY IV 02/06/25 15:30 Sodium Chloride 1,000 ml @ 75 mls/hr [id number] IV 02/06/25 15:30 02/10/25 14:14 75 MLS/HR Amino Acids/ Electrolytes/ Dextrose 1,000 ml @ 41 mls/hr DAILY@2200 IV 02/06/25 22:00 02/09/25 20:06 41 MLS/HR Diagnostic Test (Pha) 1 strip Q6HR 02/07/25 00:00 02/10/25 12:18 1 STRIP Insulin Human Regular FOLLOW SLIDING SCALE Q6HR SC 02/07/25 00:00 Dextrose 50 ml UD IV 02/06/25 22:00 Enteral Nutritional Formula 1,000 ml 75ML/HR GT 02/07/25 12:45 02/10/25 12:01 1,000 ML Lacosamide 150 mg BID@0700,1900 GT 02/07/25 19:00 02/08/25 06:10 150 MG Vancomycin HCl 0 ml @ 0 mls/hr UD IV 02/08/25 15:30 Cefepime HCl 50 ml @ 12.5 mls/hr Q8H IV 02/09/25 08:00 02/10/25 09:31 12.5 MLS/HR Sodium Chloride 10 ml QSHIFT@10,22 IV 02/09/25 22:00 02/10/25 09:30 10 ML Vancomycin HCl 100 ml @ 100 mls/hr Q8H IV 02/10/25 13:00 02/10/25 11:47 100 MLS/HR Examination General Appearance: Cooperative. Well developed. Pulmonary/Respiratory: Equal bilateral air entry Cardiovascular/Chest: Regular rate and rhythm. No murmurs. No JVD. Abdominal Exam: Peg tube noted, minimal redness around G-tube entry site with minimal to scant drainage. Ankle Exam: Negative ankle edema Skin Exam: Normal inspection. Normal color. Warm. Dry laboratory and microbiology Laboratory Tests 02/10/25 05:42 Test 02/10/25 05:42 Range/Units Serum Glucose 70 L 74-106 mg/dL Microbiology Date/Time Source Procedure Growth Status 02/05/25 19:04 Abdomen Gram Stain - Final Complete 02/05/25 19:04 Wound Culture - Final Methicillin Resistant S.aureus Proteus mirabilis Complete 02/04/25 15:42 Blood Blood Culture - Final NO GROWTH AFTER 5 DAYS OF INCUBATION. Complete Labs and/or images reviewed: Labs reviewed by me, Image(s) reviewed by me Problem List/Assessment/Plan Problem List/Assessment/Plan Dislodgement of G-tube G-tube site cellulitis Sepsis due to above Generalized weakness Abnormal LFTs Cholelithiasis Probable pneumonia Plan: Underwent gastrostomy tube management/replacement Repeat x-ray: Intraluminal position of percutaneous gastrostomy tube. Nonobstructive bowel gas pattern. Continue tube feeds IV hydration Continue antibiotics Right upper quadrant ultrasound IV Clinimix Keep NPO Thank you so much for the opportunity to consult on your patient. GI team will follow the patient. In case of any questions or concerns please feel free to reach out. Plan discussed with Dr. Gupta Plan discussed with: Other (RN) My Orders My Orders Orders - ANKIT JEFFRIES RESIDENT Procedure Category Date Status Time Comprehensive LAB 02/11/25 Verified Metabolic Panel 04:00 Magnesium LAB 02/11/25 Verified 04:00 Phosphorus LAB 02/11/25 Verified 04:00 Tpn Per Pharmacy [facility] 02/10/25 In Process 22:00 Dietary Evaluation Review Comments: 1) Initiate Jevity 1.2 @ 75 mL/hr goal rate as tolerated. Flush with 150 mL free H2O Q6H. Goal rate will provide 2160 kcals, 100g Pro, and 2053 mL free H2O (including TF flushes) per 24 hrs. Goal rate will meet ~99% estimated daily energy needs and 100% estimated daily protein needs 2) Initiate Vitamin C @ 500 mg bid for 7 days 3) Advance to regular diet when medically feasible, pending ST approval 4) Follow-up with neurology 5) Continue to monitor I&O, labs, and skin integrity Expected Outcomes/Goals: 1) EN regimen to meet at least 75% of estimated daily needs 2) labs and wound to improve 3) f/u in 2-3 days ANKIT JEFFRIES RESIDENT Feb 10, 2025 16:00
== END 2025-02-10 20:44 | disposition home health service (06) | DRG 871 ==
LOC: EDBD 13:30 → ER 13:30 → OVERFLOW 21:59 → EAST 02-05 14:11 → TELE-EAST 02-08 20:57
PROVIDERS: ADMIT Internal Medicine Geriatric Medicine; ATTEND Internal Medicine Geriatric Medicine
PROC: 02HV33Z Insertion of Infusion Device into Superior Vena Cava, Percutaneous Approach (ICD-10-PCS; principal; 2025-02-09)
PROC: B548ZZA Ultrasonography of Superior Vena Cava, Guidance (ICD-10-PCS; 2025-02-09)
DX: A41.9 Sepsis, unspecified organism (principal); G82.50 Quadriplegia, unspecified; J18.9 Pneumonia, unspecified organism; K94.23 Gastrostomy malfunction; L03.311 Cellulitis of abdominal wall; K94.22 Gastrostomy infection; K80.20 Calculus of gallbladder without cholecystitis without obstruction; N20.0 Calculus of kidney; K94.21 Gastrostomy hemorrhage; R74.01 Elevation of levels of liver transaminase levels; G40.909 Epilepsy, unspecified, not intractable, without status epilepticus; Z86.79 Personal history of other diseases of the circulatory system; Z98.2 Presence of cerebrospinal fluid drainage device; Z88.1 Allergy status to other antibiotic agents; Z88.8 Allergy status to other drugs, medicaments and biological substances; Z87.820 Personal history of traumatic brain injury; Z80.1 Family history of malignant neoplasm of trachea, bronchus and lung; Y84.8 Other medical procedures as the cause of abnormal reaction of the patient, or of later complication, without mention of misadventure at the time of the procedure; Y92.89 Other specified places as the place of occurrence of the external cause; Z79.899 Other long term (current) drug therapy
CPT/HCPCS: 36415; 36569; 71045; 74018; 74176; 76705; 76937; 80053; 80202; 81001; 82962; 83605; 83735; 84100; 84478; 85025; 85610; 85730; 87040; 87077; 87081; 87186; 87205; 94640; 96365; 96366; 96367; G0378; J3490; J7060

== ENCOUNTER 2025-03-16 14:51 | Emergency (ER) | payer MEDICARE, MEDICAID ==
[~2025-03-16] VITALS: Ht 172.7 cm; Wt 81.8 kg
[~2025-03-16 14:51] MED LIST changes: +BACDST PO; +LACO10SO PO; +[UNRECOGNIZED DRUG - CODE] GT
--- NOTE | 2025-03-16 15:35 | ED.PDOC ---
History of Present Illness(SKN HPI Comments This is a 49 year old male BIBA and accompanied by mother presenting to the ED with chief complaint of wound check. Mother reports that the patient's G-Tube site was recently changed last month on 02/03 and since then has had black colored drainage appear around the site, usually during the morning. Mother relays that she noticed blood for the past 2 days along with the black drainage, but when the home health nurse noticed it today, she advised the mother to come to the ED for further evaluation. Mother notes patient has history of cellulitis to the G-Tube site a month ago, but he had finished IV antibiotics since then. Mother denies any blood in g-tube, redness, of skin, fever, or chills. Chief Complaint: Tube Replacement Time Seen by MD: 15:32 History of Present Illness: Nurses Notes, Blender Machine Operator Notes, Medications, Allergies Allergies: Coded Allergies: Piperacillin (Verified Adverse Reaction, Intermediate, URTICARIA, 12/11/24) Home Meds Active Scripts Sulfamethoxazole W/Trimethopri (Bactrim Ds Tablet) 1 Tab Tb, 1 TAB PO BID for 7 Days, #14 TAB Prov:KENDAL SMALL MD 02/10/25 Fluconazole (Fluconazole) 200 Mg Tab, 1 TAB PO DAILY for 3 Days, #3 TAB Prov:FLAKO WOODSON RESIDENT 12/09/24 Fluconazole (Fluconazole) 200 Mg Tab, 1 TAB PO DAILY for 3 Days, #3 TAB Prov:FLAKO WOODSON RESIDENT 12/09/24 Reported Medications Lacosamide (Lacosamide) 10 Mg/Ml Trace, 10 MG PO BID, ML 02/06/25 Nutritional Supplements (Jevity 1.5 Nikko) Nikko Liq, 60 ML GT, LIQ 02/05/25 Levetiracetam (Keppra) 1,000 Mg Tab, 10 LIQ PO BID, #60 TAB 5 Refills 11/14/24 Amino Acids-Protein Hydrolysat (PRO-STAT) Liq, 30 ML OR DAILY, LIQ 11/14/24 Zinc Sulfate (Zinc Sulfate) 220 Mg Cap, 50 MG GT DAILY for 30 Days, MG 11/14/24 Potassium Chloride (POTASSIUM CHLORIDE CR) 10 Meq Tb, 20 MEQ GT DAILY, TAB 11/14/24 Multiple Vitamin (Multivitamins) Tab, 1 TAB GT DAILY, #30 TAB 2 Refills 11/14/24 Lorazepam (ATIVAN TABLET) 0.5 Mg Tb, 0.5 MG GT Q6HPRN PRN for SHORTNESS OF BREATH, TAB 11/14/24 Levalbuterol HCl (Levalbuterol) 1.25 Mg/0.5 Ml Neb, 1.25 MG IN Q4HP PRN for WHEEZING, INH 11/14/24 Lacosamide (Lacosamide) 150 Mg Tab, 15 ML GT BID, TAB 11/14/24 Loratadine (Claritin) 10 Mg Tab, 1 TAB PO DAILY for ALLERGIES, #30 TAB 5 Refills 11/14/24 Ipratropium-Albuterol (Ipratropium [place]/Albut) 1 Trace Trace, 1 TRACE IN Q6HPRN PRN for respiratory failure, ML 11/14/24 Glycopyrrolate (CUVPOSA) 1 Mg/5 Ml Trace, 1 MG PO Q8HPRN PRN for increased secretions, ML 11/14/24 Polyethylene Glycol 3350 (Miralax) 17 Gm Pow, 17 GM PO 3XW, POW 11/14/24 Chlorhexidine Gluconate (Mouth (CHLORHEXIDINE ORAL RINSE) 473 Ml So, 15 ML MT Q12HR, ML 11/14/24 Acetylcysteine (Acetylcysteine) 20 % Trace, 1 ML IN Q4HP PRN for thick secretions, ML 11/14/24 Diphenhydramine Hcl (Benadryl Allergy) 25 Mg Cap, 25 MG PO Q8HPRN PRN for allergies, CAP 11/14/24 Ascorbic Acid (VITAMIN C TABLET) 500 Mg Tb, 1 TAB GT BID, #60 TAB 11/14/24 Baclofen (Baclofen) 10 Mg Tab, 20 MG GT Q6HR for 30 Days, MG 25 Information Source: Relative (Mother), Emergency Med Personnel Mode of Arrival: EMS Severity: Mild Timing: Days Duration: Since onset Prehospital treatment: None Location: Abdomen Mechanism: Spontaneous Onset Wound Type: Other (G-Tube site) Immunization Status of Animal: NA Tetanus: Unknown Past Medical History PAST MEDICAL HISTORY: Seizures Past Medical History (Other): Brain aneurysm [id number], non-verbal, Quadraplegic Surgical History: Denies all surgeries Family History Family History: Reviewed,noncontributory to illness Social History Smoker: Non-Smoker Alcohol: Denies ETOH Use Drugs: Denies Drug Use Lives In: Home Constitutional: denies: chills, diaphoresis, fatigue, fever, malaise, sweats, weakness, others EENTM: denies: blurred vision, double vision, ear bleeding, ear discharge, ear drainage, ear pain, ear ringing, eye pain, eye redness, hearing loss, mouth pain, mouth swelling, nasal discharge, nose bleeding, nose congestion, nose pain, photophobia, tearing, throat pain, throat swelling, voice changes, others Respiratory: denies: cough, hemoptysis, orthopnea, SOB at rest, shortness of breath, SOB with excertion, stridor, wheezing, others Cardiovascular: denies: chest pain, dizzy spells, diaphoresis, Dyspnea on exertion, edema, irregular heart beat, left arm pain, lightheadedness, palpitations, PND, syncope, others Gastrointestinal: denies: abdomen distended, abdominal pain, blood streaked bowels, constipated, diarrhea, dysphagia, difficulty swallowing, hematemesis, melena, nausea, poor appetite, poor fluid intake, rectal bleeding, rectal pain, vomiting, others Genitourinary: denies: burning, dysuria, flank pain, frequency, hematuria, incontinence, penile discharge, penile sore, pain, testicle pain, testicle swelling, urgency, others Neurological: denies: dizziness, fainting, headache, left sided numbness, left sided weakness, numbness, paresthesia, pre-existing deficit, right sided numbness, right sided weakness, seizure, speech problems, tingling, tremors, weakness, others Musculoskeletal: denies: back pain, gout, joint pain, joint swelling, muscle pain, muscle stiffness, neck pain, others Integumetry: reports: others (black drainage/bleeding to G-Tube site); denies: bruises, change in color, change in hair/nails, dryness, laceration, lesions, lumps, rash, wounds Allergic/Immunocompromised: denies: Difficulty Healing, Frequent Infections, Hives, Itching, others Hematologic/Lymphatic: denies: anemia, blood clots, easy bleeding, easy br uising, swollen glands, others Endocrine: denies: excessive hunger, excessive sweating, excessive thirst, excessive urination, flushing, intolerance to cold, intolerance to heat, unexplained weight gain, unexplained weight loss, others Psychiatric: denies: anxiety, bipolar disorder, depression, hopeless, panic disorder, schizophrenia, sleepless, suicidal, others All Other Systems: Reviewed and Negative Physical Exam General Appearance: No Apparent Distress HEENT: Normal ENT Inspection, PERRL/EOMI Neck: Full Range of Motion, Non-Tender, Normal, Normal Inspection Respiratory: Chest Non-Tender, Lungs Clear, No Accessory Muscle Use, No Respiratory Distress, Normal Breath Sounds Cardiovascular: No Edema, No JVD, No Murmur, No Gallop, Normal Peripheral Pulses, Regular Rate/Rhythm Breast Exam: Deferred Gastrointestinal: No Organomegaly, Non Tender, No Pulsatile Mass, Normal Bowel Sounds, Soft, Other (NG-tube daily discharge around the tube) Genitalia: Deferred Pelvic: Deferred Rectal: Deferred Extremities: No calf tenderness, Normal capillary refill, No pedal edema, Other (Quadriparetic from a brain aneurysm) Neurologic: Alert, Aphasia, Depressed Affect, Flacid, Motor Weakness, Speech Problem, Other (Quadriparesis) Cerebellar Function: NOT DONE Reflexes: NOT DONE Skin: Dry, Normal Color, Warm Peripheral Pulses: 1+ carotid (R), 1+ carotid (L) Lymphatic: No Adenopathy Was a procedure done? Was a procedure done?: No Differential Diagnosis (INTG) Differential Diagnosis: N/A Differential Diagnosis: Contact Dermatitis Differential Diagnosis: Retained Foreign Body Abscess: Bacteremia Differential Diagnosis: N/A (Discharge on a daily basis from the G-tube stoma) X-Ray, Labs, Meds, VS Vital Signs Date Time Temp Pulse Resp B/P (MAP) Pulse Ox O2 Delivery O2 Flow Rate FiO2 03/16/25 16:55 96 03/16/25 16:50 97.9 73 24 149/84 (105) 94 97.9 03/16/25 16:50 76 16 94 Room Air* 0 21 03/16/25 15:04 98.5 88 16 122/67 97 98.5 Lab Test 03/16/25 16:24 Range/Units White Blood Count 7.1 4.4-10.8 10^3/uL Red Blood Count 5.66 4.5-5.90 10^6/uL Hemoglobin 15.9 13.5-17.5 g/dL Hematocrit 48.2 41.0-53.0 % Mean Corpuscular Volume 85.2 80.0-100.0 fL Mean Corpuscular Hemoglobin 28.1 28.0-32.0 pg Mean Corpuscular Hemoglobin Concent 33.0 32.0-36.0 g/dL Red Cell Distribution Width 15.1 H 11.8-14.3 % Platelet Count 179 140-450 10^3/uL Mean Platelet Volume 8.6 6.9-10.8 fL Neutrophils (%) (Auto) 57.0 37.0-80.0 % Lymphocytes (%) (Auto) 28.0 10.0-50.0 % Monocytes (%) (Auto) 12.7 H 0.0-12.0 % Eosinophils (%) (Auto) 1.4 0.0-7.0 % Basophils (%) (Auto) 0.9 0.0-2.0 % Neutrophils # (Auto) 4.1 1.6-8.6 10 ^3/uL Lymphocytes # (Auto) 2.0 0.4-5.4 10 ^3/uL Monocytes # (Auto) 0.9 0-1.3 10 ^3/uL Eosinophils # (Auto) 0.1 0-0.8 10 ^3/uL Basophils # (Auto) 0.1 0-0.2 10 ^3/uL Nucleated Red Blood Cells 0.0 % Sodium Level 140 136-145 mmol/L Potassium Level 4.3 3.5-5.1 mmol/L Chloride Level 106 98-107 mmol/L Carbon Dioxide Level 23 20-31 mmol/L Anion Gap 11 5-15 Blood Urea Nitrogen 13 9-23 mg/dL Creatinine 0.60 L 0.700-1.30 mg/dL Glomerular Filtration Rate Calc 118 >90 mL/min BUN/Creatinine Ratio 21.7 H 10.0-20.0 Serum Glucose 93 74-106 mg/dL Calcium Level 8.5 L 8.7-10.4 mg/dL X-Ray, Labs, Meds, VS Comment Course in the emergency department patient who is quadriplegic and has a G-tube was having some discharge from the G-tube around the G-tube from the stoma mom was concerned CBC normal BNP normal Culture of the stoma done The exam of the stoma is normal there is no inflammation no redness no induration no discharge at this time Patient will be discharged home to follow up with the GI Time of 1ST Reevaluation: 16:30 Reevaluation 1ST: Unchanged Time of 2ND Reevaluation: 17:56 Reevaluation 2ND: Unchanged Patient Education/Counseling: Other (Pt is non-verbal) Family Education/Counseling: Diagnosis, Treatment SEPSIS Sepsis Screen Date sepsis recognized/suspect: Mar 16, 2025 Time Sepsis recognized/suspect: 1507 Recent Procedure: No On Antibiotic Therapy: No Respiratory Rate >20: No Heart Rate >90: No Temp<36 C (96.8 F) or >38.3 C: No SBP <90 or MAP <65 mmHG: No New Acute Mental Status Change: No Is the patient on CPAP, BIPAP,: No Physician Orders Wound Culture W/ Gs (03/16/25 15:32) Vital Signs Date Time Temp Pulse Resp B/P (MAP) Pulse Ox O2 Delivery O2 Flow Rate FiO2 03/16/25 16:55 96 03/16/25 16:50 97.9 73 24 149/84 (105) 94 97.9 03/16/25 16:50 76 16 94 Room Air* 0 21 03/16/25 15:04 98.5 88 16 122/67 97 98.5 Laboratory Tests Test 03/16/25 16:24 White Blood Count 7.1 10^3/uL (4.4-10.8) Departure 1 Departure Time of Disposition: 17:58 Impression: Primary Impression: Leaking percutaneous endoscopic gastrostomy (PEG) tube Disposition: 01 HOME / SELF CARE / HOMELESS Condition: Fair Discharged With: Legal Guardian, Algology Teacher Critical Care Note Critical Care Time?: No Stability Stability form required: No Heart Score Heart Score: Heart Score Response (Comments) Value History N/A 0 EKG N/A 0 Age 45-64 1 Risk Factors 1 or 2 risk factors 1 Troponin N/A 0 Total 2 I personally scribed for SABRINA FERREIRA MD ([email or web address]) on 03/16/25 at 15:35. Electronically submitted by Migue Carlisle ([email or web address]). SABRINA FERREIRA MD Mar 16, 2025 15:35
[2025-03-16 16:31] LABS: Hematocrit 48.2 % (41.0-53.0); Hemoglobin 15.9 g/dL (13.5-17.5); Mean Corpuscular Hemoglobin 28.1 pg (28.0-32.0); Mean Corpuscular Volume 85.2 fL (80.0-100.0); Nucleated Red Blood Cells % 0.0 %
[2025-03-16 16:39] LABS: Chloride 106 mmol/L (98-107); Potassium 4.3 mmol/L (3.5-5.1); Sodium 140 mmol/L (136-145)
[2025-03-16 16:40] LABS: Anion Gap 11 (5-15); Carbon Dioxide 23 mmol/L (20-31)
[2025-03-16 16:42] LABS: Calcium 8.5 mg/dL (8.7-10.4)
[2025-03-16 16:45] LABS: BUN/Creatinine Ratio 21.7 (10.0-20.0); Blood Urea Nitrogen 13 mg/dL (9-23); Glucose 93 mg/dL (74-106)
[2025-03-16 16:50] VITALS: PULSE 76; RESP 16; O2SAT 94
[2025-03-16] MEDS ORDERED: Jevity 1.2 Cal/Fiber 1 Liter GT SCH (23:15)
[2025-03-16 23:30] VITALS: TEMP 99.2
[2025-03-16 23:44] VITALS: PULSE 89; RESP 28; O2SAT 98
[2025-03-17] MEDS: BACLOFEN 10 MG TAB GT SCH (06:07)
[2025-03-17 06:51] VITALS: BP 156/76
[2025-03-17 07:33] VITALS: PULSE 94; RESP 28; O2SAT 91
[2025-03-17 08:00] VITALS: PULSE 106
[2025-03-17] MEDS: POTASSIUM EFFERVESENT TAB 25 MEQ GT ONE (10:02)
== END 2025-03-17 13:38 | disposition home or self-care (01) ==
LOC: ER 14:51 → EDBD 14:51 → ER 03-17 13:37
DX: K94.23 Gastrostomy malfunction (principal); Z88.0 Allergy status to penicillin; G82.50 Quadriplegia, unspecified
CPT/HCPCS: 36415; 80048; 82947; 85025; 87077; 87081; 87186; 87205; 99285; A4649; 82962; 94640

== ENCOUNTER 2025-03-31 17:13 | Inpatient (IN) | payer MEDICARE, MEDICAID ==
[~2025-03-31] VITALS: Ht 177.8 cm; Wt 78.9 kg
[2025-03-31 18:00] LABS: Hematocrit 47.1 % (41.0-53.0); Hemoglobin 16.1 g/dL (13.5-17.5); Mean Corpuscular Hemoglobin 28.2 pg (28.0-32.0); Mean Corpuscular Volume 82.8 fL (80.0-100.0); Nucleated Red Blood Cells % 0.1 %
[2025-03-31 18:18] LABS: Albumin 3.9 g/dL (3.2-4.8); Alkaline Phosphatase 114 U/L (46-116); Anion Gap 11 (5-15); BUN/Creatinine Ratio 11.7 (10.0-20.0); Bilirubin, Total 0.4 mg/dL (0.2-1.0); Calcium 8.9 mg/dL (8.7-10.4); Carbon Dioxide 23 mmol/L (20-31); Chloride 105 mmol/L (98-107); Glucose 81 mg/dL (74-106); Potassium 4.1 mmol/L (3.5-5.1); Sodium 139 mmol/L (136-145); Total Protein 7.0 g/dL (5.7-8.2)
--- NOTE | 2025-03-31 18:26 | ED.PDOC ---
GI ASSESSMENT HPI Comments HPI: Initial Vitals BP: HR: RR: O2 Sat: Temp: Past Medical history: SEIZURES [facility] D/C FINAL Dx (02/04/25): G-tube site infection Cellulitis of the abdominal wall GT tube malposition Transaminitis History of traumatic brain injury Quadriplegia History of seizures History of endocarditis Cholelithiasis Nonobstructive right intrarenal calculus Past Surgical history: Medications: Social History: Denies smoking, ETOH, and drug use. Allergies: NKDA HPI: Poor Historian. 49-year-old male brought in by ambulance from home per PCP's recommendation. The PCP Dr. Fernandez called and gave us has a up admit this patient to the hospital. He said that the patient had a PEG tube replacement on March 16 and has been having some secretions around the PEG tube site. Cultures were obtained and it shows positive for VRE and Malinda albicans and later Klebsiella pneumonia. He requested that we rule out abscess in the intra-abdominal cavity by CT scan and admit the patient for IV antibiotics and antifungal. Patient has history of aspiration pneumonia. Per mother patient is not on any antibiotics at this time. REVIEW OF SYSTEMS: CONSTITUTIONAL: Denies acute: fever, diaphoresis, chills, generalized weakness. HEAD: Denies acute: headache, photophobia Eyes: Denies acute: Double vision, vision loss, eye pain, eye discharge. EARS: Denies acute: tinnitus, hearing loss, ear discharge, ear pain, THROAT: Denies acute: sore throat, swelling, difficulty swallowing , pain with swallowing, change in voice. NECK: Denies acute: neck pain, neck swelling, stiff neck. HEART: Denies acute : chest pain, palpitations, LUNGS: Denies acute: SOB, wheezing, cough, hemoptysis ABDOMEN: Denies acute: abdominal pain, Nausea, Vomiting, melena , hematemesis, hematochezia SKIN: Denies acute: rash, redness, lesions, itchiness. EXTREMITIES: Denies acute: calf pain, numbness, tingling, weakness, denies pain in extremity. Denies acute: Low back pain. Neuro: Denies acute: focal neurological deficit, motor or sensory focal neurological deficit, tremors, seizure like activity, confusion, dizziness, change in mental status, loss of bowel or bladder function, cauda equina like symptoms. : Denies acute: dysuria, hematuria, flank pain, increase in urinary frequency. PSYCH: Denies acute: hallucination, suicidal ideation, homicidal ideation. PHYSICAL EXAM: General: ----no----acute distress, awake and alert. Head: atraumatic. Noted skull is sunken with a history of craniotomy. No raccoon's eyes, no tadeo sign. Neck: supple, trachea is midline, no swelling. Throat: Normal phonation. Tracheostomy in place Eyes:, no erythema, no purulent discharge, no proptosis, no icterus. Heart: regular rate, regular rhythm, no significant murmur appreciated. Lungs: no apparent respiratory distress, No wheezing, no rhonchi, no crackles. No stridors Clear to auscultation bilaterally. Abdomen: non tender to palpation, non distended, soft, no guarding, no rebound, + bowel sounds. Peg tube is noted with minimal associated erythema or cellulitis. Mother states that the PEG tube was dislodged at home and the balloon was completely deflated. She push it back inside to the stoma open. Replace the PEG tube and inflated the balloon with 20 cc of normal saline. We secured the PEG tube with tape and gauze to the abdominal wall. Mother refused any stitching of the PEG tube to the abdominal wall. Neuro: Awake, Alert, at baseline mentation per mother at bedside. Skin: no petechia, no purpura, no cyanosis, non-pale, not jaundice. Lower extremities: --no - Pitting edema no deformity, no focal swelling, no calf TTP. Patient bilateral legs are in contractures flexion that is baseline for him. Makes eye contact. Face: no apparent facial droop. ED COURSE: DISCLAIMER: This medical document was created using an electronic medical record system with voice recognition software and computerized dictation system. Although this document has been carefully reviewed, there might still be some phonetic and typographical errors. Occasional wrong-word or "sound-alike" substitutions may have occurred due to the inherent limitations of voice recognition software. These areas are purely typographical due to imperfections of the software programs and do not reflect any compromise in the patient's medical care. Please read the chart carefully and recognize, using context, where these substitutions have occurred. Chief Complaint: Wound Check Time Seen by MD: 18:00 Reviewed Notes: Nurses Notes, Felt Hanger Notes, Medications, Allergies Allergies: Coded Allergies: Piperacillin (Verified Adverse Reaction, Intermediate, URTICARIA, 12/11/24) Home Meds Active Scripts Sulfamethoxazole W/Trimethopri (Bactrim Ds Tablet) 1 Tab Tb, 1 TAB PO BID for 7 Days, #14 TAB Prov:KENDAL SMALL MD 02/10/25 Fluconazole (Fluconazole) 200 Mg Tab, 1 TAB PO DAILY for 3 Days, #3 TAB Prov:FLAKO WOODSON 12/09/24 Fluconazole (Fluconazole) 200 Mg Tab, 1 TAB PO DAILY for 3 Days, #3 TAB Prov:FLAKO WOODSON RESIDENT 12/09/24 Reported Medications Lacosamide (Lacosamide) 10 Mg/Ml Trace, 10 MG PO BID, ML 02/06/25 Nutritional Supplements (Jevity 1.5 Nikko) Nikko Liq, 60 ML GT, LIQ 02/05/25 Levetiracetam (Keppra) 1,000 Mg Tab, 10 LIQ PO BID, #60 TAB 5 Refills 11/14/24 Amino Acids-Protein Hydrolysat (PRO-STAT) Liq, 30 ML OR DAILY, LIQ 11/14/24 Zinc Sulfate (Zinc Sulfate) 220 Mg Cap, 50 MG GT DAILY for 30 Days, MG 11/14/24 Potassium Chloride (POTASSIUM CHLORIDE CR) 10 Meq Tb, 20 MEQ GT DAILY, TAB 11/14/24 Multiple Vitamin (Multivitamins) Tab, 1 TAB GT DAILY, #30 TAB 2 Refills 11/14/24 Lorazepam (ATIVAN TABLET) 0.5 Mg Tb, 0.5 MG GT Q6HPRN PRN for SHORTNESS OF BREATH, TAB 11/14/24 Levalbuterol HCl (Levalbuterol) 1.25 Mg/0.5 Ml Neb, 1.25 MG IN Q4HP PRN for WHEEZING, INH 11/14/24 Lacosamide (Lacosamide) 150 Mg Tab, 15 ML GT BID, TAB 11/14/24 Loratadine (Claritin) 10 Mg Tab, 1 TAB PO DAILY for ALLERGIES, #30 TAB 5 Refills 11/14/24 Ipratropium-Albuterol (Ipratropium [place]/Albut) 1 Trace Trace, 1 TRACE IN Q6HPRN PRN for respiratory failure, ML 11/14/24 Glycopyrrolate (CUVPOSA) 1 Mg/5 Ml Trace, 1 MG PO Q8HPRN PRN for increased secretions, ML 11/14/24 Polyethylene Glycol 3350 (Miralax) 17 Gm Pow, 17 GM PO 3XW, POW 11/14/24 Chlorhexidine Gluconate (Mouth (CHLORHEXIDINE ORAL RINSE) 473 Ml So, 15 ML MT Q12HR, ML 11/14/24 Acetylcysteine (Acetylcysteine) 20 % Trace, 1 ML IN Q4HP PRN for thick secretions, ML 11/14/24 Diphenhydramine Hcl (Benadryl Allergy) 25 Mg Cap, 25 MG PO Q8HPRN PRN for allergies, CAP 11/14/24 Ascorbic Acid (VITAMIN C TABLET) 500 Mg Tb, 1 TAB GT BID, #60 TAB 11/14/24 Baclofen (Baclofen) 10 Mg Tab, 20 MG GT Q6HR for 30 Days, MG 11/14/24 Information Source: Relative Mode of Arrival: EMS Was a procedure done? Was a procedure done?: Yes Sedation Sedation?: No Other Procedure Procedure PEG-TUB REPLACEMENT Indication Peg-tube dislodged with balloon un-inflated. Success 22 FR Gastrostomy balloon retention feeding tube placed and inflated with 20mL of normal saline . Informed consent obtained: Yes Risks, benefits, and alternati: Yes GI differential Dx Differential Diagnosis: Other (Abdominal wall cellulitis intra-abdominal abscess, peg tube malfunction, sepsis,) X-Ray, Labs, Meds, VS Vital Signs Date Time Temp Pulse Resp B/P (MAP) Pulse Ox O2 Delivery O2 Flow Rate FiO2 03/31/25 20:03 78 14 97 Trach Collar 10 N/A 03/31/25 20:00 78 03/31/25 19:30 98.6 78 14 145/73 (97) 97 98.6 03/31/25 17:13 98.0 82 18 131/72 95 98.0 Lab Test 03/31/25 17:39 Range/Units White Blood Count 7.6 4.4-10.8 10^3/uL Red Blood Count 5.69 4.5-5.90 10^6/uL Hemoglobin 16.1 13.5-17.5 g/dL Hematocrit 47.1 41.0-53.0 % Mean Corpuscular Volume 82.8 80.0-100.0 fL Mean Corpuscular Hemoglobin 28.2 28.0-32.0 pg Mean Corpuscular Hemoglobin Concent 34.1 32.0-36.0 g/dL Red Cell Distribution Width 15.6 H 11.8-14.3 % Platelet Count 208 140-450 10^3/uL Mean Platelet Volume 9.0 6.9-10.8 fL Neutrophils (%) (Auto) 55.8 37.0-80.0 % Lymphocytes (%) (Auto) 30.1 10.0-50.0 % Monocytes (%) (Auto) 11.1 0.0-12.0 % Eosinophils (%) (Auto) 2.1 0.0-7.0 % Basophils (%) (Auto) 0.9 0.0-2.0 % Neutrophils # (Auto) 4.2 1.6-8.6 10 ^3/uL Lymphocytes # (Auto) 2.3 0.4-5.4 10 ^3/uL Monocytes # (Auto) 0.8 0-1.3 10 ^3/uL Eosinophils # (Auto) 0.2 0-0.8 10 ^3/uL Basophils # (Auto) 0.1 0-0.2 10 ^3/uL Nucleated Red Blood Cells 0.1 % Sodium Level 139 136-145 mmol/L Potassium Level 4.1 3.5-5.1 mmol/L Chloride Level 105 98-107 mmol/L Carbon Dioxide Level 23 20-31 mmol/L Anion Gap 11 5-15 Blood Urea Nitrogen 7 L 9-23 mg/dL Creatinine 0.60 L 0.700-1.30 mg/dL Glomerular Filtration Rate Calc 118 >90 mL/min BUN/Creatinine Ratio 11.7 10.0-20.0 Serum Glucose 81 74-106 mg/dL Lactic Acid Level 0.9 0.4-2.0 mmol/L Calcium Level 8.9 8.7-10.4 mg/dL Magnesium Level Pending Total Bilirubin 0.4 0.2-1.0 mg/dL Aspartate Amino Transferase (AST) 50 H 13-40 U/L Alanine Aminotransferase (ALT) 93 H 7-40 U/L Alkaline Phosphatase 114 46-116 U/L Total Protein 7.0 5.7-8.2 g/dL Albumin 3.9 3.2-4.8 g/dL Time of 1ST Reevaluation: 18:30 Reevaluation 1ST: Unchanged Patient Education/Counseling: Diagnosis, Treatment Family Education/Counseling: Diagnosis, Treatment Assigned to Dr. dr. Montesinos to follow up on CT a/p results. pt is already admitted. Comments MDM: patient presented with the above HPI.---peg tube problem/complication---workup was initiated. patient was found with the above mentioned diagnosis. the following medications were ordered: please refer to order lists of meds and tests obtained by myself Dr. Romero. Patient ED course and VS have been stabilized. Patient has been reassessed in the ED and remained in a stable condition. Pertinent incidental findings were discussed with the patient and/or family. Patient/family voices understanding and is agreeable with plan. Patient has been observed in the ED adequate length of time to insure improvement/stability. Escalation of care considered: Consideration of escalation to observation or admission Patient is sent by his PCP to be admitted to the hospital for IV antibiotics and antifungals. Patient has multiple positive wound cultures per the PCP. Patient will benefit from infectious disease consultation. PEG tube dislodged from home was replaced with a new PEG tube the same size in the balloon inflated appropriately per instructions. CT scan of the abdomen and pelvis is still pending. Patient was ADMITTED to the medicine team for further evaluation and treatment of their presentation. All the reports of any imaging studies that were ordered by myself were reviewed by myself. SEPSIS Sepsis Screen Date sepsis recognized/suspect: Mar 31, 2025 Time Sepsis recognized/suspect: 1712 Recent Procedure: No On Antibiotic Therapy: No Respiratory Rate >20: No Heart Rate >90: No Temp<36 C (96.8 F) or >38.3 C: No SBP <90 or MAP <65 mmHG: No New Acute Mental Status Change: No Is the patient on CPAP, BIPAP,: No Physician Orders Buttonhole Marker (03/31/25 ) Blood Culture (03/31/25 17:14) Vital Signs Date Time Temp Pulse Resp B/P (MAP) Pulse Ox O2 Delivery O2 Flow Rate FiO2 03/31/25 20:03 78 14 97 Trach Collar 10 N/A 03/31/25 20:00 78 03/31/25 19:30 98.6 78 14 145/73 (97) 97 98.6 03/31/25 17:13 98.0 82 18 131/72 95 98.0 Laboratory Tests Test 03/31/25 17:39 Lactic Acid Level 0.9 mmol/L (0.4-2.0) White Blood Count 7.6 10^3/uL (4.4-10.8) Departure 1 Departure Time of Disposition: 19:56 Impression: Primary Impression: Leaking percutaneous endoscopic gastrostomy (PEG) tube Additional Impressions: PEG tube malfunction Status post insertion of percutaneous endoscopic gastrostomy (PEG) tube Disposition: ADMITTED INPATIENT Admit to: [facility] Condition: Guarded Discharged With: Self, Relative (Mother) Critical Care Note Critical Care Time?: Yes (45 min-critical care time only) I personally scribed for ARNULFO ROMERO DO ([email or web address]) on 03/31/25 at 18:26. Electronically submitted by Margo Gaming ([email or web address]). I personally scribed for ARNULFO ROMERO DO ([email or web address]) on 03/31/25 at 18:29. Electronically submitted by Margo Gaming ([email or web address]). I personally scribed for ARNULFO ROMERO DO ([email or web address]) on 03/31/25 at 19:22. E lectronically submitted by Margo Gaming ([email or web address]). ARNULFO ROMERO DO Mar 31, 2025 18:26
[2025-03-31 18:41] LABS: Alanine Aminotransferase 93 U/L (7-40); Blood Urea Nitrogen 7 mg/dL (9-23)
[2025-03-31 20:03] VITALS: PULSE 78; RESP 14; O2SAT 97
[2025-03-31] MEDS ORDERED: ONDANSETRON HCL 4 MG/2 ML VIAL IV PRN (21:00)
[2025-03-31] MEDS: CHLORHEXIDINE 0.12% ORAL rinse 473ML MT SCH (22:00)
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
[2025-03-31] MEDS: ENOXAPARIN SOD 40 MG/0.4 ML SYRINGE SC SCH (22:47)
[2025-03-31] MEDS: SODIUM CHLORIDE 0.9% 1,000 ML IV ONE (22:48)
[2025-04-01] VITALS (14 sets, daily range): BP systolic 116–138; BP diastolic 58–83; PULSE 65–88; RESP 17–20; TEMP 97.6–98.3; O2SAT 93–99
--- NOTE | 2025-04-01 00:18 | DVH ---
CHEST RADIOGRAPH Indication: sob Technique: Single frontal view of the chest was obtained COMPARISON: XY CHEST PORTABLE on DOS: 02/04/25, XY CHEST PORTABLE on DOS: 01/04/25, XY CHEST PORTABLE on DOS: 01/02/25, XY CHEST XRAY 1 VIEW on DOS: 12/29/24, XY CHEST PORTABLE on DOS: 12/20/24 FINDINGS: Lines and Tubes: Unchanged. Lungs: Stable mild right hemidiaphragmatic elevation and right basilar atelectasis. Lungs are otherwise clear. Pleura: No effusion. No pneumothorax. Cardiomediastinal contours: Unremarkable Bones: Unremarkable IMPRESSION: 1. Stable mild right hemidiaphragmatic elevation and right basilar atelectasis. 2. Lungs are otherwise clear. 3. Lines and tubes unchanged.
--- NOTE | 2025-04-01 00:23 | DVH ---
Exam: CT CT AB PEL WITH IV CON ONLY History: rule out abdominal abscess, g tube malfunction Comparison Study: CT CHST AB PEL WO CON-NO IV/ORAL on DOS: 12/17/24, CT CHEST WITHOUT CONTRAST on DOS: 11/12/24 Technique: Multidetector spiral CT of the chest, abdomen and pelvis was performed from lower neck to pubic symphysis. Intravenous contrast was administered during this examination. Portal venous imaging was obtained. Axial, coronal and sagittal multiplanar reformats were performed by the technologist on a separate workstation. Radiation Dose : 1. Chest/Abdomen/Pelvis: CTDIvol 19.71 mGy, DLP 1278.7 mGy*cm. Findings: Lower neck: Normal thyroid. Lungs: No focal consolidation, pleural effusion or pneumothorax. Heart/Vascular Structures: Normal heart size. No pericardial effusion. Lymph Nodes: No adenopathy Pleura: No pleural effusion or significant pneumothorax. Liver: The liver is normal in size. No focal lesions. Normal hepatic vascular enhancement. Gallbladder and Biliary Tree: Cholelithiasis noted without secondary findings of cholecystitis or biliary obstruction. Spleen: Unremarkable Pancreas: The pancreas is normal in appearance without focal lesions or abnormal enhancement. Adrenal Glands: Unremarkable Kidneys: Kidneys demonstrate normal symmetric enhancement without focal lesions, calculi or hydronephrosis. Bladder: Unremarkable Bowel: G-tube in-situ. No free air. No abscess. Ascites: Absent Lymphadenopathy: No mesenteric, retroperitoneal or periportal lymphadenopathy. Abdominal Wall and Mesentery: Unremarkable. Vasculature: The visualized abdominal aorta is normal in size and caliber. Abdominal and pelvic vessels demonstrate normal enhancement. Pelvic Organs: Unremarkable Musculoskeletal: No aggressive focal bony lesions, acute fractures or dislocation. CENTER DIRECTOR LEAD TEACHER shunt. IMPRESSION: G-tube appears well situated within the stomach with no free air, abscess, or other acute abnormality.
[2025-04-01] MEDS: MICAFUNGIN SODIUM 100 MG in SODIUM CHL 0.9% 100 ML IV ONE (01:25)
[2025-04-01] MEDS: BACLOFEN 10 MG TAB GT SCH (01:26)
[2025-04-01] MEDS: LINEZOLID 600MG/300ML 300 ML IV SCH (03:28)
[2025-04-01] MEDS: CEFEPIME 1GM/50ML 50 ML IV SCH (05:54)
[2025-04-01] MEDS: ALBUTEROL SULF 2.5 MG/0.5ML(0.5%) NEB SOLN NEB SCH (06:02)
[2025-04-01 07:11] LABS: Hematocrit 47.5 % (41.0-53.0); Hemoglobin 15.8 g/dL (13.5-17.5); Mean Corpuscular Hemoglobin 27.8 pg (28.0-32.0); Mean Corpuscular Volume 83.5 fL (80.0-100.0); Nucleated Red Blood Cells % 0.1 %
[2025-04-01 07:19] LABS: Chloride 105 mmol/L (98-107); Potassium 4.2 mmol/L (3.5-5.1); Sodium 137 mmol/L (136-145)
[2025-04-01 07:28] LABS: BUN/Creatinine Ratio 10.0 (10.0-20.0)
[2025-04-01 07:31] LABS: Alanine Aminotransferase 89 U/L (7-40); Albumin 3.8 g/dL (3.2-4.8); Alkaline Phosphatase 104 U/L (46-116); Anion Gap 10 (5-15); Bilirubin, Total 0.6 mg/dL (0.2-1.0); Blood Urea Nitrogen 7 mg/dL (9-23); Calcium 8.8 mg/dL (8.7-10.4); Carbon Dioxide 22 mmol/L (20-31); Glucose 92 mg/dL (74-106); Total Protein 6.7 g/dL (5.7-8.2)
[2025-04-01] MEDS: POLYETHYLENE GLYCOL 17 GM PWDR GT SCH (10:00)
[2025-04-01] MEDS: MICAFUNGIN SODIUM 100 MG in SODIUM CHL 0.9% 100 ML IV SCH (10:33)
[2025-04-01 15:07] LABS: Urine Protein, UAD Negative (Negative)
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
[2025-04-01] MEDS: Jevity 1.2 Cal/Fiber 1 Liter GT SCH (17:15)
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
[2025-04-01] MEDS: levETIRAcetam 1000 mg/100ml 100 ML IV SCH (23:41)
[2025-04-02] VITALS (14 sets, daily range): BP systolic 101–150; BP diastolic 68–78; PULSE 63–93; RESP 15–20; TEMP 97.2–98.3; O2SAT 94–100
[2025-04-02 05:59] LABS: Hematocrit 44.2 % (41.0-53.0); Hemoglobin 15.1 g/dL (13.5-17.5); Mean Corpuscular Hemoglobin 28.2 pg (28.0-32.0); Mean Corpuscular Volume 82.8 fL (80.0-100.0); Nucleated Red Blood Cells % 0.1 %
[2025-04-02 06:18] LABS: Anion Gap 10 (5-15); Carbon Dioxide 25 mmol/L (20-31); Chloride 104 mmol/L (98-107); Potassium 3.7 mmol/L (3.5-5.1); Sodium 139 mmol/L (136-145)
[2025-04-02 06:19] LABS: Calcium 9.1 mg/dL (8.7-10.4)
[2025-04-02 06:24] LABS: BUN/Creatinine Ratio 14.8 (10.0-20.0); Blood Urea Nitrogen 9 mg/dL (9-23); Glucose 106 mg/dL (74-106)
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
[2025-04-02] MEDS: Jevity 1.2 Cal/Fiber 1 Liter GT SCH (13:00)
[2025-04-03] VITALS (12 sets, daily range): BP systolic 117–142; BP diastolic 65–75; PULSE 62–142; RESP 18–71; TEMP 97.2–98.3; O2SAT 65–100
[2025-04-03] MEDS: IOHEXOL 300 MG/ML 100ML BOTTLE IJ ONE (08:00)
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
[2025-04-04] VITALS (17 sets, daily range): BP systolic 116–147; BP diastolic 53–86; PULSE 63–96; RESP 15–22; TEMP 97–98.7; O2SAT 93–100
--- NOTE | 2025-04-04 13:10 | DVHPN2 ---
Subjective No new problems Changes from previous H/P or p: Changes Eyes: No Pain, No Vision change, No Conjunctivae inflammation, No Eyelid inflammation, No Other, No Redness ENT: No Ear pain, No Ear discharge, No Nose pain, No Nose discharge, No Nose congestion, No Mouth pain, No Mouth swelling, No Throat pain, No Throat swelling, No Other Cardiovascular: No Chest Pain, No Palpitations, No Orthopnea, No Paroxysmal Noc. Dyspnea, No Edema, No Lt Headedness, No Other Respiratory: No Cough, No Dry, No Shortness of breath, No SOB with excertion, No Wheezing, No Hemoptysis, No Pleuritic Pain, No Sputum, No Other Gastrointestinal: No Nausea, No Vomiting, No Abdominal Pain, No Diarrhea, No Constipation, No Melena, No Hematochezia; Other (Leaking G-tube) Genitourinary: No Dysuria, No Frequency, No Incontinence, No Hematuria, No Retention, No Other Musculoskeletal: No other, No neck pain, No shoulder pain, No arm pain, No back pain, No hand pain, No leg pain, No foot pain Skin: No Rash, No Lesions, No Jaundice, No Bruising, No Other Objective Vitals Vital Signs Date Time Temp Pulse Resp B/P (MAP) Pulse Ox O2 Delivery O2 Flow Rate FiO2 04/04/25 11:15 74 20 100 04/04/25 11:03 Trach Collar 6 28 Cool Aerosol 28 04/04/25 08:52 97.0 116/53 (74) 97.0 Intake/Output Intake and Output 04/04/25 07:00 Intake Total 900 ml Balance 900 ml Intake Oral 0 ml IV Total 900 ml # Voids 8 # Bowel Movements 2 General Appearance: Alert Lungs: Clear to auscultation, Normal air movement Cardiovascular: Regular rate, Normal S1 Extremities: No edema Medications Current Medications Medications Dose Ordered Sig/Ata Route Start Time Stop Time Status Last Admin Dose Admin Ondansetron HCl 4 mg Q4HP PRN IV 03/31/25 21:00 Enoxaparin Sodium 40 mg DAILY SC 03/31/25 21:00 04/04/25 10:30 40 MG Cefepime HCl 50 ml @ 12.5 mls/hr Q8HR IV 03/31/25 22:00 04/04/25 05:02 12.5 MLS/HR Baclofen 20 mg Q6HR GT 04/01/25 00:00 04/04/25 12:52 20 MG Chlorhexidine Gluconate 15 ml Q12HR MT 03/31/25 22:00 04/04/25 10:00 15 ML Polyethylene Glycol 17 gm DAILY GT 04/01/25 10:00 04/04/25 10:30 17 GM Patient Own Medication 1 mg Q8HPRN PRN PO 03/31/25 21:00 Patient Own Medication 10 mg BID GT 03/31/25 22:00 Albuterol 2.5 mg Q6HR NEB 04/01/25 06:00 04/04/25 11:03 2.5 MG Levetiracetam 100 ml @ 400 mls/hr BID IV 04/01/25 22:00 04/04/25 10:30 400 MLS/HR Enteral Nutritional Formula 1,000 ml 65ML/HR GT 04/02/25 13:00 04/03/25 23:10 1,000 ML Linezolid 300 ml @ 150 mls/hr Q12H IV 04/04/25 20:00 Micafungin Sodium 100 mg/Sodium Chloride 100 ml @ 100 mls/hr DAILY@1900 IV 04/04/25 19:00 Laboratory Results Laboratory Tests 04/02/25 04:33 04/02/25 04:43 Urinalysis Test 04/01/25 14:35 Urine Color Light-yellow (Yellow) Urine Clarity Clear (Clear) Urine pH 7.0 (5.0-9.0) Urine Specific [place] 1.023 (1.001-1.035) Urine Protein Negative (Negative) Urine Ketones 1+ (Negative) H Urine Blood Negative /uL (Negative) Urine Nitrite Negative (Negative) Urine Bilirubin Negative (Negative) Urine Urobilinogen Normal mg/dL (Negative) Urine Leukocyte Esterase Negative /uL (Negative) Urine RBC 5 /hpf (0 - 3) Urine Microscopic WBC 3 /HPF (0-3) Urine Squamous Epithelial Cells Few /hpf (<5) Urine Bacteria None seen /hpf (None Seen) Urine Glucose Normal mg/dL (Normal) Microbiology Microbiology Date/Time Source Procedure Growth Status 04/01/25 14:35 Abdomen Gram Stain - Final Resulted 04/01/25 14:35 Wound Culture - Preliminary Methicillin Resistant S.aureus Presumptive Malinda albicans Yeast, not Malinda albicans Resulted 03/31/25 17:51 Blood Blood Culture - Preliminary NO GROWTH AFTER 72 HOURS OF INCUBATION. 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
[2025-04-04] MEDS: MICAFUNGIN SODIUM 100 MG in SODIUM CHL 0.9% 100 ML IV SCH (18:07)
[2025-04-04] MEDS: LINEZOLID 600MG/300ML 300 ML IV SCH (20:51)
[2025-04-05] VITALS (12 sets, daily range): BP systolic 122–148; BP diastolic 74–81; PULSE 68–84; RESP 15–20; TEMP 97.6–98.1; O2SAT 96–100
[2025-04-05] MEDS ORDERED: LINE1TAB10 PO (10:47)
[2025-04-05] MEDS ORDERED: FLUC100T34 PO (10:47)
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
== END 2025-04-05 16:00 | disposition home health service (06) | DRG 393 ==
LOC: ER 17:13 → EDBD 17:13 → OVERFLOW 20:46 → EAST 23:50
PROVIDERS: ADMIT Internal Medicine Geriatric Medicine; ATTEND Internal Medicine Geriatric Medicine
DX: K94.22 Gastrostomy infection (principal); G82.50 Quadriplegia, unspecified; B95.2 Enterococcus as the cause of diseases classified elsewhere; G40.909 Epilepsy, unspecified, not intractable, without status epilepticus; B37.9 Candidiasis, unspecified; B95.62 Methicillin resistant Staphylococcus aureus infection as the cause of diseases classified elsewhere; B96.1 Klebsiella pneumoniae [K. pneumoniae] as the cause of diseases classified elsewhere; K76.0 Fatty (change of) liver, not elsewhere classified; J98.11 Atelectasis; Z16.21 Resistance to vancomycin; R74.01 Elevation of levels of liver transaminase levels; K80.20 Calculus of gallbladder without cholecystitis without obstruction; K94.23 Gastrostomy malfunction; Y83.3 Surgical operation with formation of external stoma as the cause of abnormal reaction of the patient, or of later complication, without mention of misadventure at the time of the procedure; N20.0 Calculus of kidney; Z74.01 Bed confinement status; Z86.79 Personal history of other diseases of the circulatory system; Z87.442 Personal history of urinary calculi; Z87.820 Personal history of traumatic brain injury; Z98.2 Presence of cerebrospinal fluid drainage device; Z88.0 Allergy status to penicillin; Z79.899 Other long term (current) drug therapy; Y92.89 Other specified places as the place of occurrence of the external cause
CPT/HCPCS: 36415; 43762; 71045; 74177; 80048; 80053; 81001; 83605; 83735; 85025; 87040; 87077; 87081; 87186; 87205; 94640; 99291; G0378; J2248